=== PATIENT | male | born 1935 | race Caucasian/White ===

== ENCOUNTER → 2016-12-15 | Outpatient (CLI) | payer OTHER ==
[~2016-12-15] MED LIST: ARC10 PO; ASPCH81 PO; ATOR-24 PO; CLOP1TAB15 PO; FAMO20TA11 PO; GLC5 PO; INSU3INJ3 SQ; ISOS30TA51 PO; MELATAB2 PO; METO50TA16 PO; NITR0.6D TD; NTRGSL/4 UT; PARO1TAB29 PO; PREG1CAP28 PO; RNXER500 PO; SITA50TA3 PO
--- NOTE | 2016-12-15 10:38 | DIAGNOSTIC IMAGING REPORT ---
AORTIC ANEURYSM RETROPERI [facility] (ab[facility]) COMPARISON STUDY: Abdomen and pelvis CT 10/01/2007. FINDINGS: Scattered calcified atherosclerotic plaque is again noted. There is a 4.2 x 4.1 cm distal abdominal aortic aneurysm. This is increased in size compared to the prior study when it measured up to 3.5 cm. Common iliac arteries are normal in caliber. IMPRESSION: A 4.2 x 4.1 cm distal abdominal aortic aneurysm. Electronically signed by: Michael Chadwick M.D. 12/15/2016 10:37 AM Dictated Date/Time: 12/15/2016 10:35 AM
== END | disposition home or self-care (01) ==
LOC: C.ULTRBC 10:08
PROVIDERS: ATTEND Internal Medicine Geriatric Medicine
DX: Z00.00 Encounter for general adult medical examination without abnormal findings (principal); I71.4 Abdominal aortic aneurysm, without rupture

== ENCOUNTER 2018-06-22 04:11 | Inpatient (IN) ==
[2018-06-22 04:58] LABS: Basophils # (auto) 0.02 K/uL (0-0.2); Basophils % (auto) 0.2 %; Eosinophils # (auto) 0.13 K/uL (0-0.5); Eosinophils % (auto) 1.5 %; Hemoglobin 12.2 g/dL (14.0-18.0); Immature Granulocytes # (auto) 0.02 K/uL (0.00-0.02); Immature Granulocytes % (auto) 0.2 %; Lymphocytes # (auto) 1.88 K/uL (1.2-3.4); Lymphocytes % (auto) 21.1 %; Mean Corpuscular Hgb Conc 33.9 g/dL (32-36); Mean Corpuscular Volume 87.2 fL (80-100); Monocytes # (auto) 0.69 K/uL (0.11-0.59); Monocytes % (auto) 7.8 %; Neutrophils # (auto) 6.16 K/uL (1.4-6.5); Neutrophils % (auto) 69.2 %; Platelet Count 251 K/uL (130-400); RDW Coefficient of Variation 14.4 % (11.5-14.5); RDW Standard Deviation 45.5 fL (36.4-46.3); Red Blood Count 4.13 M/uL (4.7-6.1)
[2018-06-22 05:24] LABS: Albumin Globulin Ratio 0.9 (0.9-2); Albumin Level 3.4 gm/dl (3.4-5.0); BUN Creatinine Ratio 11.8 (10-20); Bilirubin,Total 0.6 mg/dl (0.2-1); Calcium 8.8 mg/dl (8.5-10.1); Creatinine Clr Calc Pharmacy 37.1 ml/min; Est GFR (African American) 41.4; Est GFR (Non-African American) 35.7; Globulin 3.7 gm/dl (2.5-4.0); Total Protein 7.1 gm/dl (6.4-8.2)
[2018-06-22 05:49] LABS: Potassium 4.5 mmol/L (3.5-5.1)
[2018-06-22] MEDS ORDERED: SODIUM CHLORIDE 0.9% 1000ML 1,000 ML IV ONE (06:00)
[2018-06-22 06:04] LABS: Magnesium 2.3 mg/dl (1.8-2.4)
--- NOTE | 2018-06-22 06:30 | XRay Report ---
XR chest 1V portable HISTORY: 82 years-old Male fall acute atypical chest pain status post fall COMPARISON: Chest radiograph 02/01/2018 TECHNIQUE: Portable AP view of the chest FINDINGS: Prior median sternotomy. Cardiac silhouette is enlarged, unchanged. Postoperative changes suggest monica or CABG. Bibasilar opacities suggest atelectasis/scarring. Degenerative changes of the shoulders and spine. No acute displaced rib fracture identified. IMPRESSION: Cardiomegaly without acute process. The above report was generated using voice recognition software. It may contain grammatical, syntax o r spelling errors. Electronically signed by: Nic Dao M.D. 06/22/2018 6:28 AM
--- NOTE | 2018-06-22 06:35 | CT Scan Report ---
CT OF THE CERVICAL SPINE CLINICAL HISTORY: Neck pain status post trauma COMPARISON STUDY: No previous studies for comparison. CT DOSE: 1013.48 mGy.cm TECHNIQUE: CT scan of the cervical spine was performed from the skull base to the thoracic inlet. Staci ges are reviewed in the axial, sagittal, and coronal planes. IV contrast was not administered for thi s examination. A dose lowering technique was utilized adhering to the principles of ALARA. FINDINGS: The visualized portions of the lung apices reveal no evidence of pneumothorax. The prevertebral soft tissues are normal. No fractures or subluxations are visualized. There are multilevel degenerative changes IMPRESSION: No evidence of acute fracture or traumatic subluxation. Electronically signed by: Hermelindo Maravilla M.D. 06/22/2018 6:34 AM
--- NOTE | 2018-06-22 06:41 | CT Scan Report ---
CT head/brain wo con CLINICAL HISTORY: 82 years-old Male with fall, ams. Acute head injury status post fall with acutely altered mental status TECHNIQUE: Multiple axial CT images of the head were obtained without contrast. A dose lowering tech nique was utilized adhering to the principles of ALARA. COMPARISON: CT cervical spine of same day, brain MRI 02/05/2015. FINDINGS: No acute intracranial hemorrhage, midline shift, intracranial mass, hydrocephalus, territorial ischem ia or abnormal extra-axial collection. Age-related involutional changes. Mild degree of ill-defined w darrian matter hypodensities suggestive of background chronic microvascular ischemic change. Cerebral va scular calcifications noted. Senescent calcifications of the basal ganglia. The calvarium is intact. Trace right mastoid effusion. Left mastoid air cells are clear. The paranasa l sinuses are also generally clear. Soft tissues and orbits are unremarkable. Prior bilateral catarac t repair. IMPRESSION: No acute intracranial abnormality or calvarial fracture. The above report was generated using voice recognition software. It may contain grammatical, syntax o r spelling errors. Electronically signed by: Nic Dao M.D. 06/22/2018 6:40 AM
[2018-06-22] MEDS: D5W AND 1/2NSS 1,000 ML IV SCH ×3 (07:18→22:53)
--- NOTE | 2018-06-22 08:05 | History & Physical Report ---
Date of Service June 22, 2018 Assessment & Plan (1) DM II (diabetes mellitus, type II), controlled: (2) Hypoglycemia: - Admit to PCU - Stop D5W + 1/2 NSS after going to the floor since pt is able to tolerate oral diet and glucose is improving. Pt with CHF so monitor volume status closely. - Continue BG checks Q4H and Q1H prn. IV and PO glucose agents ordered prn for decreased glucose. Will order ISS so this may be used if pt's glucose does trend upward. Hold Levemir 40 U QPM - will need education regarding medication and daily logging of the administration to prevent accidental overdose with antiglycemic agents. - DM/ HH diet - A1C with am labs (3) Hypothermia: - Improving at this time - Monitor for AMS, pt is AAO x 3 during my exam - Imaging reviewed per EMR. (4) Altered mental status: As above (5) Acute kidney injury: - Cr. elevated at 1.73, follow with am labs. - IVFs given in ER, likely to help renal function. Avoid other nephrotoxins and renally dose medications. (6) CKD (chronic kidney disease), stage III: - Slightly elevated compared to baseline. Follow am labs. - Hold nephrotoxins and renally dose appropriate medications. (7) Elevated lipase: - No abdominal pain, will trend am lipase. - Allow diet for now with significant hypoglycemia as above. - Consider further pancreatic imaging with abd CT if other changes in lipase levels or concern for other pancreatic involvement with causing hypoglycemia if medication cause is ruled out. (8) Systolic and diastolic CHF, chronic: - EF of 45-50% as per Echo in Jan 2018 - Appears to be euvolemic currently, monitor volume status with IVFs from the er. - Daily weights, strict I/Os, HH diet - Follows with cardiology, Dr. Christine as outpatient, has ECHO [id number] as outpatient for followup. (9) Elevated troponin I level: - Trop 1.000, likely residual from recent cardiac cath on 06/09. Check one more set at noon. - EKG reviewed and is negative. Per nursing in ER there was possible arrhythmia on tele while at imaging, will monitor on tele. - EKG prn chest pain (10) History of quadruple bypass: (11) CAD (coronary artery disease): - Underwent recent cardiac cath on 06/09/[address] Christine which showed severe [place] multivessel coronary artery disease. - [address] - Continue to maximize antianginal therapy, recently had nitro patch dose increased as pt was occasionally forgeting morning oral anti-anginal meds - No repeat echo indicated at this time, continue to monitor as outpatient. - Continue Ranexa, plavix, asa 81 mg, and atorvastatin, nitro tabs prn. - Pt without any cardiac/respiratory complaints currently. (12) Aortic stenosis: - Noted, stable. 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 The patient lives at home with his who is not present at bedside. The patient notes he remembers getting up and having breakfast this morning. He cannot recall any events after this. Per EMS report the patient had a BG in the mid 30s on several rechecks, despite administration of juice, cookies, and oral glucose. He was then given 1 full amp of D50 which improved glucose into the 200s for a short period of time. Upon arrival to the hospital his glucose again dropped into the mid 30s. D5W + NSS 1/2 @ 125 mL/hr was initiated in the ER. BG= 122 upon last recheck in the ER. A Bairhugger was placed on the patient and his temperature has also improved up to 35.2. He denies any acute flu-like sx, no cardiac or respiratory complaints. Pt notes he sustained a mechanical fall yesterday and that his neck is sore since then. He denies LOC, trauma or skin tear or laceration. He does not use any assistive devices for ambulation at baseline. Pt notes that he remembers taking medications last evening which would have included Levimir 40 U QPM, along with a sliding scale, although is unsure if he would have mixed up these medications and taken a wrong dose. He does manage his meds at baseline himself. Allergies Allergy/AdvReac Type Severity Reaction Status Date / Time iodine Allergy Severe Unknown Verified 06/27/18 06:42 Penicillins Allergy Severe AMOXIL = Verified 06/27/18 06:42 ANAPHYLACTIC RXN clavulanic acid Allergy Unknown Unknown Verified 06/27/18 06:42 morphine AdvReac Mild VOMITING Verified 06/27/18 06:42 Home Medications Home Medications Medication Instructions Recorded Confirmed Type atorvastatin 40 mg PO HS 02/01/18 06/27/18 History donepezil [Aricept] 10 mg PO DAILY 02/01/18 06/27/18 History metoprolol tartrate 50 mg PO BID 02/01/18 06/27/18 History nitroglycerin [Nitrostat] 0.4 mg SUBLINGUAL DIRECTED PRN 02/01/18 06/27/18 History Levemir FlexTouch U-100 Insuln 40 units SUBCUT PM 06/09/18 06/27/18 History aspirin 81 mg PO DAILY 06/09/18 06/27/18 History cholecalciferol (vitamin D3) 1,000 unit PO DAILY 06/09/18 06/27/18 History [Vitamin D3] clopidogrel 75 mg PO DAILY 06/09/18 06/27/18 History cyanocobalamin (vitamin B-12) 1,000 mcg PO DAILY 06/09/18 06/27/18 History [Vitamin B-12] famotidine 20 mg PO BID 06/09/18 06/27/18 History pantoprazole 40 mg PO DAILY 06/09/18 06/27/18 History ranolazine [Ranexa] 500 mg PO Q12 06/22/18 06/27/18 History nitroglycerin [Nitro-Dur] 1 patch TRANSDERMAL ONAMOFFPM 06/27/18 06/28/18 History Past Med/Surg History Medical History CAD (coronary artery disease) Vitamin D deficiency PVD (peripheral vascular disease) GERD (gastroesophageal reflux disease) HLD (hyperlipidemia) DM II (diabetes mellitus, type II), controlled Anemia Aortic stenosis AAA (abdominal aortic aneurysm) KAY (obstructive sleep apnea) Dementia CKD (chronic kidney disease), stage III HTN (hypertension), benign Chest pain (Acute) Ankle pain, right (Acute) Surgical History History of quadruple bypass H/O heart artery stent Social History Communication Ability: Effective Beliefs That Will Affect Care: None marital status: Current Living Situation: Spouse Other Information That Helps Us Care for You: No Feels Safe at Home: Yes Safety Concerns: Feels Safe At This Time Smoking Status: Former smoker Hx Alcohol Use: No Hx Substance Use: No Review of Systems Constitutional: No fever, sweats or chills Eyes: No diplopia, no worsening or blurred vision ENT: normal hearing, no trouble swallowing Respiratory: No cough, sputum, dyspnea at rest or on exertion Cardiovascular: No chest pain, tightness or palpitations Abdomen: No pain, nausea, vomiting, diarrhea or constipation Musculoskeletal: + neck soreness, otherwise No joint pain, calf pain, swelling Neurologic: + admits to some forgetfulness, No weakness, numbness/tingling, or balance problems Psychiatric: No anxiety or depression Skin: No rash or itch Physical Exam Vital Signs (Past 24 Hours): Last Vital Signs Temp 34.9 C L 06/22/18 07:25 Pulse 58 L 06/22/18 07:57 Resp 18 06/22/18 07:57 BP 130/63 06/22/18 07:57 Pulse Ox 97 06/22/18 07:57 Physical Exam: General: awake, alert, no apparent distress, + bairhugger on Head: Normocephalic, atraumatic ENT: PERRL, EOMI, no pharyngeal exudate, mucous membranes moist Chest: Clear to auscultation, on room air, no adventitious breath sounds Cardiac: NSR with HR=58, + JOHANNA, no JVD, normal peripheral pulses, good capillary refill Abdominal: NABS x 4 quadrants, soft, nontender to palpation, no rebound, guarding or tenderness. Urinary catheter in place draining clear yellow urine. Extremities: Normal inspection, no peripheral edema or erythema, calfs nontender to palpation Psych: Normal mood and affect Neuro: AAO x 3, no motor deficits, speech is clear, no peripheral sensory deficits Results & Data Diagnostic Findings CT head/brain wo con CLINICAL HISTORY: 82 years-old Male with fall, ams. Acute head injury status post fall with acutely altered mental status TECHNIQUE: Multiple axial CT images of the head were obtained without contrast. A dose lowering technique was utilized adhering to the principles of ALARA. COMPARISON: CT cervical spine of same day, brain MRI 02/05/2015. FINDINGS: No acute intracranial hemorrhage, midline shift, intracranial mass, hydrocephalus, territorial ischemia or abnormal extra-axial collection. Age- related involutional changes. Mild degree of ill-defined white matter hypoden sities suggestive of background chronic microvascular ischemic change. Cerebral vascular calcifications noted. Senescent calcifications of the basal ganglia. The calvarium is intact. Trace right mastoid effusion. Left mastoid air cells are clear. The paranasal sinuses are also generally clear. Soft tissues and orbits are unremarkable. Prior bilateral cataract repair. IMPRESSION: No acute intracranial abnormality or calvarial fracture. XR chest 1V portable HISTORY: 82 years-old Male fall acute atypical chest pain status post fall COMPARISON: Chest radiograph 02/01/2018 TECHNIQUE: Portable AP view of the chest FINDINGS: Prior median sternotomy. Cardiac silhouette is enlarged, unchanged. Postoperative changes suggest prior CABG. Bibasilar opacities suggest atelectasis/scarring. Degenerative changes of the shoulders and spine. No acute displaced rib fracture identified. IMPRESSION: Cardiomegaly without acute process. CT OF THE CERVICAL SPINE CLINICAL HISTORY: Neck pain status post trauma COMPARISON STUDY: No previous studies for comparison. CT DOSE: 1013.48 mGy.cm TECHNIQUE: CT scan of the cervical spine was performed from the skull base to the thoracic inlet. Images are reviewed in the axial, sagittal, and coronal planes. IV contrast was not administered for this examination. A dose lowering technique was utilized adhering to the principles of ALARA. FINDINGS: The visualized portions of the lung apices reveal no evidence of pneumothorax. The prevertebral soft tissues are normal. No fractures or subluxations are visualized. There are multilevel degenerative changes IMPRESSION: No evidence of acute fracture or traumatic subluxation. ECG Additional Comments: 22-JUN-2018 04:46:07 [facility] Poor data quality, interpretation may be adversely affected Sinus bradycardia Incomplete left bundle block ST & T wave abnormality, consider anterior ischemia Abnormal ECG When compared with ECG of 02-FEB-2018 07:47, Incomplete left bundle block is now Present T wave inversion less evident in Anterolateral leads 25mm/s 10mm/mV 150Hz 8.0 SP2 12SL 241 MARILYN: 16 Referred by: REFERRED SELF Unconfirmed Vent. rate 51 BPM WV interval 138 ms QRS duration 116 ms QT/QTc 530/488 ms P-R-T axes -7 9 -11 Supervising Physician Co-Signing Physician Notes I interrogated and examined the patient shortly after the APC in a seperate encounter. My histoRy and physical examination did not differ from the APCs. I reviewed above note and agree with it except for the following: Hypoglycemia: This is likely from the patient's insulin use. This may have been exacerbated by his CKD, especially since he is in acute renal failure. Will monitor his blood sugars. Patient may also have dementia which may be playing a role in overusing the insulin provoking a hypoglycemic episode. Will monitor. (1) CAD (coronary artery disease) Associated angina: with unstable angina Coronary Disease-Associated Artery/Lesion type: [place] artery [place] vs. transplanted heart: sh[place] heart Qualified Code(s): I25.110 - Atherosclerotic heart disease of [place] coronary artery with unstable angina pectoris (2) AAA (abdominal aortic aneurysm) Presence of rupture: without rupture Qualified Code(s): I71.4 - Abdominal aor tic aneurysm, without rupture (3) Aortic stenosis Cardiac valve disease etiology: etiology unspecified Qualified Code(s): I35.0 - Nonrheumatic aortic (valve) stenosis (4) HLD (hyperlipidemia) Hyperlipidemia type: pure hypercholesterolemia Qualified Code(s): E78.00 - Pure hypercholesterolemia, unspecified; E78.0 - Pure hypercholesterolemia (5) Hypothermia Encounter type: initial encounter Qualified Code(s): T68.XXXA - Hypothermia, initial encounter (6) Altered mental status Altered mental status type: unspecified Qualified Code(s): R41.82 - Altered mental status, unspecified
[2018-06-22] MEDS ORDERED: ONDANSETRON INJ 2 MG/ML 2 ML VIAL IV PRN (08:15)
[2018-06-22] MEDS ORDERED: GLUCAGON FOR INJ 1 MG VIAL SQ PRN (08:15)
[2018-06-22] MEDS ORDERED: DEXTROSE 50% 50 ML SYRINGE IV PRN (08:15)
[2018-06-22] MEDS ORDERED: GLUCOSE 10 TABS/TUBE PO PRN (08:15)
[2018-06-22] MEDS ORDERED: CARBOHYDRATES FOR HYPOGLYCEMIA PO PRN (08:15)
[2018-06-22] MEDS ORDERED: GLUCOSE 40% GEL 15 GM TUBE PO PRN (08:15)
[2018-06-22] MEDS ORDERED: ACETAMINOPHEN 325 MG TAB PO PRN (08:15)
[2018-06-22] MEDS ORDERED: NITROGLYCERIN SL 0.4 MG/TAB TAB SL PRN (08:20)
[2018-06-22 08:28] LABS: Appearance Urine Clear (Clear); Bilirubin Urine Negative (Negative); Blood Urine Negative (Negative); Color Urine Yellow; Glucose Urine UA Negative (Negative); Ketones Urine Negative (Negative); Leukocyte Esterase Urine Negative (Negative); Nitrite Urine Negative (Negative); Protein Urine Negative (Negative); Specific Gravity Urine 1.012 (1.000-1.030); Urobilinogen Urine Negative (Negative)
[2018-06-22] MEDS: ASPIRIN 81 MG ECTAB PO SCH (11:56)
[2018-06-22] MEDS: CYANOCOBALAMIN 500 MCG TABLET (VITAMIN B-12) PO SCH (11:56)
[2018-06-22] MEDS: DONEPEZIL HCL 10 MG TAB PO SCH (11:56)
[2018-06-22] MEDS: RANOLAZINE 500 MG ER TAB PO SCH ×2 (11:56→20:49)
[2018-06-22] MEDS: CLOPIDOGREL BISULFATE 75 MG TAB PO SCH (11:56)
[2018-06-22] MEDS: PANTOprazole 40 MG TAB PO SCH (11:56)
[2018-06-22] MEDS: CHOLECALCIFEROL 1,000 UNITS TAB PO SCH (11:56)
[2018-06-22] MEDS: FAMOTIDINE 20 MG TAB PO SCH ×2 (11:56→20:26)
[2018-06-22] MEDS: METOPROLOL TARTRATE 50 MG TAB PO SCH ×2 (11:57→21:59)
[2018-06-22] MEDS: INSULIN ASPART 100 UNITS/ML 3 ML PEN SC SCH ×3 (12:03→21:03)
[2018-06-22 12:05] LABS: INR 1.1 (0.9-1.1); Prothrombin Time 10.9 Seconds (9.0-12.0)
[2018-06-22 12:42] LABS: Troponin I 13.6 ng/ml (0-0.045)
[2018-06-22] MEDS ORDERED: Heparin IV Standard *NO* Bolus IV SCH (13:10)
[2018-06-22] MEDS ORDERED: HEPARIN SOD 5,000 UNIT/0.5 ML VIAL SQ SCH (14:00)
[2018-06-22] MEDS ORDERED: PERFLUTREN LIPID MICROSPHERE (DEFINITY) IV ONE (14:07)
[2018-06-22] MEDS: Heparin Adult STANDARD Wt-Based Dextrose 5% 25,000 units/500 mL IV SCH (15:01)
[2018-06-22] MEDS: NITROGLYCERIN TD SCH (15:32)
--- NOTE | 2018-06-22 17:13 | Cardiology Consultation ---
Date of Consultation June 22, 2018 Assessment & Plan (1) Non-ST elevation (NSTEMI) myocardial infarction: He did not present with acute coronary syndrome. Cannot definitively rule out angina while he was with altered mental status, but it appears more likely at this time that perhaps his hypoglycemia and presenting symptoms may have led to demand ischemia in the setting of severe CAD and moderate aortic stenosis. With lack of symptoms, would recommend continuation of medical therapy for now. Dr. Christine, his primary insurance sales specialist, will also weigh in tomorrow. Continue aspirin, Plavix, high-intensity statin therapy, and beta-ross. No indication for urgent cardiac catheterization at this time. (2) Aortic stenosis: Non severe. This is being managed by Dr. Christine and can be followed as an outpatient. (3) Ischemic cardiomyopathy: Mildly reduced LV systolic function, which is not new. Likely secondary to his multivessel CAD. Continue medical therapy. He appears euvolemic. (4) CAD (coronary artery disease): He has multivessel CAD status post CABG x5 with CAD involving bypass grafts. No angina. Continue medical therapy as above. He is well beta blocked. He uses a nitroglycerin patch at home as well for symptoms. Complex PCI considered by Dr. Christine if he should have refractory symptoms in the future. He has not exhibited anginal symptoms at this point on current regimen. Continue to follow. Continue high-intensity statin therapy. (5) HTN (hypertension), benign: Blood pressure mostly normotensive during this hospitalization. No changes recommended at this time. Disposition: Cardiology will continue to follow. Dr. Pearson will resume his cardiology care tomorrow. Please call with any other questions or concerns in the meantime. Patient care communicated with Dr. Martinez, primary hospitalist. Highly complex medical issues. Thank you for allowing me to participate in the care of your patient. Please call for any other questions or concerns. Sincerely, Alex Monae M.D. History of Present Illness Reason for Consultation: NSTEMI Requesting Physician: Clint Martinez Attending Physician: Clint Martinez History of Present Illness Mr. 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 His primary insurance sales specialist is Dr. Christine. [facility] due to confusion, hypothermia, and hypoglycemia. He apparently had altered mental status at approximately 2:00 a.m. when his called 911. She had noted that he was thrashing around in his bed. He does not recall any of the events however. His initial glucose was 34 in the emergency department and his initial temperature was 34.9 C. He now feels back to baseline. He does not recall any recent chest discomfort, shortness of breath, syncope, near-syncope, palpitations, edema, melena, hematochezia, or hematuria. He does have some blood on his toilet paper, but no extensive bleeding. He recalls falling recently but was conscious throughout the event. Troponin levels were checked throughout his hospital stay. Initial troponin was 1 and increased to 13.6 late this morning. His troponins in January of 2018 peaked at 0.756. He underwent cardiac catheterization on 06/09/2018. Coronary angiography demonstrated severe [place] multivessel CAD including occluded ostial LM CA, occluded ostial PDA, occluded SVG to diagonal, occluded SVG to PDA/PL. Aortic stenosis was noted to be moderate. Medical therapy was recommended with consideration for complex PCI to Y graft from PLB to PDA for refractory symptoms. Review of systems: As above. He also notes constipation. Review of systems otherwise negative/unremarkable. Family history: No known premature CAD. Social history: Quit smoking approximately 40 years ago. No alcohol or drug abuse. He has 2 sons and 1 daughter. His eldest son, Bi, is present at the bedside. He lives at home with his . He is retired from the [employer]. Allergies Allergy/AdvReac Type Severity Reaction Status Date / Time iodine Allergy Severe Unknown Verified 06/22/18 06:53 Penicillins Allergy Severe AMOXIL = Verified 06/22/18 06:53 ANAPHYLACTIC RXN clavulanic acid Allergy Unknown Unknown Verified 06/22/18 06:53 morphine AdvReac Mild VOMITING Verified 06/22/18 06:53 Home Medications Home Medications Medication Instructions Recorded Confirmed Type atorvastatin 40 mg PO HS 02/01/18 06/22/18 History donepezil [Aricept] 10 mg PO DAILY 02/01/18 06/22/18 History metoprolol tartrate 50 mg PO BID 02/01/18 06/22/18 History nitroglycerin [Nitrostat] 0.4 mg SUBLINGUAL DIRECTED PRN 02/01/18 06/22/18 History Levemir FlexTouch U-100 Insuln 40 units SUBCUT PM 06/09/18 06/22/18 History aspirin 81 mg PO DAILY 06/09/18 06/22/18 History cholecalciferol (vitamin D3) 1,000 unit PO DAILY 06/09/18 06/22/18 History [Vitamin D3] clopidogrel 75 mg PO DAILY 06/09/18 06/22/18 History cyanocobalamin (vitamin B-12) 1,000 mcg PO DAILY 06/09/18 06/22/18 History [Vitamin B-12] famotidine 20 mg PO BID 06/09/18 06/22/18 History nitroglycerin [Nitro-Dur] 1 patch TD DAILY #30 ea 06/09/18 06/22/18 Rx pantoprazole 40 mg PO DAILY 06/09/18 06/22/18 History ranolazine [Ranexa] 1,000 mg PO Q12 06/22/18 06/22/18 History Patient History Medical History CAD (coronary artery disease) Vitamin D deficiency PVD (peripheral vascular disease) GERD (gastroesophageal reflux disease) HLD (hyperlipidemia) DM II (diabetes mellitus, type II), controlled Anemia Aortic stenosis AAA (abdominal aortic aneurysm) KAY (obstructive sleep apnea) Dementia CKD (chronic kidney disease), stage III HTN (hypertension), benign Chest pain (Acute) Ankle pain, right (Acute) Surgical History History of quadruple bypass H/O heart artery stent Social History Preferred Language: Norwegian Communication Ability: Effective 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 Alert. HEENT: Anicteric sclera. Neck: No appreciable JVD. Normal carotid upstrokes bilaterally. Cardiac: PMI was nondisplaced. No ventricular heave. Regular. Normal S1-S2. 3/6 mid-peaking systolic ejection murmur best heard at the right upper sternal border. No rubs, or gallops. Pulmonary: Clear to auscultation bilaterally without wheezes, rales, or rhonchi. Abdomen: Soft, nontender, nondistended, with normoactive bowel sounds. No bruits noted. Extremities: 2+ radial pulses bilaterally. 1+ dorsalis pedis pulses bilaterally. No edema or cyanosis. No palpable cords. Psychiatric: Affect appears appropriate. Results & Data Laboratory Results Laboratory Results - last 24 hr 06/22/18 06/22/18 06/22/18 04:18 04:21 04:32 WBC 8.90 RBC 4.13 L Hgb 12.2 L Hct 36.0 L MCV 87.2 MCH 29.5 MCHC 33.9 RDW Std Deviation 45.5 RDW Coeff of Sandra 14.4 Plt Count 251 MPV 10.0 Immature Gran % (Auto) 0.2 Neut % (Auto) 69.2 Lymph % (Auto) 21.1 [place] % (Auto) 7.8 Eos % (Auto) 1.5 Baso % (Auto) 0.2 Immature Gran # (Auto) 0.02 Neut # (Auto) 6.16 Lymph # (Auto) 1.88 [place] # (Auto) 0.69 H Eos # (Auto) 0.13 Baso # (Auto) 0.02 PT INR APTT PTT Ratio Sodium Potassium Chloride Carbon Dioxide Anion Gap BUN Creatinine Est Cr Clr Drug Dosing Est GFR ( Amer) Est GFR (Non-Af Amer) BUN/Creatinine Ratio Glucose POC Glucose 78 84 Lactate Calcium Magnesium Total Bilirubin AST ALT Alkaline Phosphatase Total Creatine Kinase Troponin I Total Protein Albumin Globulin Albumin/Globulin Ratio Lipase Procalcitonin Urine Color Urine Appearance Urine pH Ur Specific [place] Urine Protein Urine Glucose (UA) Urine Ketones Urine Blood Urine Nitrite Urine Bilirubin Urine Urobilinogen Ur Leukocyte Esterase 06/22/18 06/22/18 06/22/18 04:32 05:09 05:31 WBC RBC Hgb Hct MCV MCH MCHC RDW Std Deviation RDW Coeff of Sandra Plt Count MPV Immature Gran % (Auto) Neut % (Auto) Lymph % (Auto) [place] % (Auto) Eos % (Auto) Baso % (Auto) Immature Gran # (Auto) Neut # (Auto) Lymph # (Auto) [place] # (Auto) Eos # (Auto) Baso # (Auto) PT INR APTT PTT Ratio Sodium 136 Potassium 4.5 Chloride 103 Carbon Dioxide 28 Anion Gap 5.0 BUN 20 H Creatinine 1.73 H Est Cr Clr Drug Dosing 37.1 Est GFR ( Amer) 41.4 Est GFR (Non-Af Amer) 35.7 BUN/Creatinine Ratio 11.8 Glucose 136 H POC Glucose 88 Lactate Calcium 8.8 Magnesium 2.3 Total Bilirubin 0.6 AST 24 ALT 20 Alkaline Phosphatase 71 Total Creatine Kinase Troponin I 1.000 H* Total Protein 7.1 Albumin 3.4 Globulin 3.7 Albumin/Globulin Ratio 0.9 Lipase 712 H Procalcitonin Urine Color Urine Appearance Urine pH Ur Specific [place] Urine Protein Urine Glucose (UA) Urine Ketones Urine Blood Urine Nitrite Urine Bilirubin Urine Urobilinogen Ur Leukocyte Esterase 06/22/18 06/22/18 06/22/18 07:12 07:16 07:44 WBC RBC Hgb Hct MCV MCH MCHC RDW Std Deviation RDW Coeff of Sandra Plt Count MPV Immature Gran % (Auto) Neut % (Auto) Lymph % (Auto) [place] % (Auto) Eos % (Auto) Baso % (Auto) Immature Gran # (Auto) Neut # (Auto) Lymph # (Auto) [place] # (Auto) Eos # (Auto) Baso # (Auto) PT INR APTT PTT Ratio Sodium Potassium Chloride Carbon Dioxide Anion Gap BUN Creatinine Est Cr Clr Drug Dosing Est GFR ( Amer) Est GFR (Non-Af Amer) BUN/Creatinine Ratio Glucose POC Glucose 34 L* 35 L* 67 L* Lactate Calcium Magnesium Total Bilirubin AST ALT Alkaline Phosphatase Total Creatine Kinase Troponin I Total Protein Albumin Globulin Albumin/Globulin Ratio Lipase Procalcitonin Urine Color Urine Appearance Urine pH Ur Specific [place] Urine Protein Urine Glucose (UA) Urine Ketones Urine Blood Urine Nitrite Urine Bilirubin Urine Urobilinogen Ur Leukocyte Esterase 06/22/18 06/22/18 06/22/18 07:54 08:00 08:21 WBC RBC Hgb Hct MCV MCH MCHC RDW Std Deviation RDW Coeff of Sandra Plt Count MPV Immature Gran % (Auto) Neut % (Auto) Lymph % (Auto) [place] % (Auto) Eos % (Auto) Baso % (Auto) Immature Gran # (Auto) Neut # (Auto) Lymph # (Auto) [place] # (Auto) Eos # (Auto) Baso # (Auto) PT INR APTT PTT Ratio Sodium Potassium Chloride Carbon Dioxide Anion Gap BUN Creatinine Est Cr Clr Drug Dosing Est GFR ( Amer) Est GFR (Non-Af Amer) BUN/Creatinine Ratio Glucose POC Glucose 122 H Lactate 1.8 Calcium Magnesium Total Bilirubin AST ALT Alkaline Phosphatase Total Creatine Kinase Troponin I Total Protein Albumin Globulin Albumin/Globulin Ratio Lipase Procalcitonin Urine Color Yellow Urine Appearance Clear Urine pH 5.0 Ur Specific [place] 1.012 Urine Protein Negative Urine Glucose (UA) Negative Urine Ketones Negative Urine Blood Negative Urine Nitrite Negative Urine Bilirubin Negative Urine Urobilinogen Negative Ur Leukocyte Esterase Negative 06/22/18 06/22/18 06/22/18 08:56 09:44 09:59 WBC RBC Hgb Hct MCV MCH MCHC RDW Std Deviation RDW Coeff of Sandra Plt Count MPV Immature Gran % (Auto) Neut % (Auto) Lymph % (Auto) [place] % (Auto) Eos % (Auto) Baso % (Auto) Immature Gran # (Auto) Neut # (Auto) Lymph # (Auto) [place] # (Auto) Eos # (Auto) Baso # (Auto) PT INR APTT PTT Ratio Sodium Potassium Chloride Carbon Dioxide Anion Gap BUN Creatinine Est Cr Clr Drug Dosing Est GFR ( Amer) Est GFR (Non-Af Amer) BUN/Creatinine Ratio Glucose POC Glucose 103 H 94 Lactate Calcium Magnesium Total Bilirubin AST ALT Alkaline Phosphatase Total Creatine Kinase Troponin I Total Protein Albumin Globulin Albumin/Globulin Ratio Lipase Procalcitonin < 0.05 Urine Color Urine Appearance Urine pH Ur Specific [place] Urine Protein Urine Glucose (UA) Urine Ketones Urine Blood Urine Nitrite Urine Bilirubin Urine Urobilinogen Ur Leukocyte Esterase 06/22/18 06/22/18 06/22/18 11:07 11:46 11:46 WBC RBC Hgb Hct MCV MCH MCHC RDW Std Deviation RDW Coeff of Sandra Plt Count MPV Immature Gran % (Auto) Neut % (Auto) Lymph % (Auto) [place] % (Auto) Eos % (Auto) Baso % (Auto) Immature Gran # (Auto) Neut # (Auto) Lymph # (Auto) [place] # (Auto) Eos # (Auto) Baso # (Auto) PT 10.9 INR 1.1 APTT PTT Ratio Sodium Potassium Chloride Carbon Dioxide Anion Gap BUN Creatinine Est Cr Clr Drug Dosing Est GFR ( Amer) Est GFR (Non-Af Amer) BUN/Creatinine Ratio Glucose POC Glucose 108 H Lactate Calcium Magnesium Total Bilirubin AST ALT Alkaline Phosphatase Total Creatine Kinase 530 H Troponin I 13.600 H* Total Protein Albumin Globulin Albumin/Globulin Ratio Lipase Procalcitonin Urine Color Urine Appearance Urine pH Ur Specific [place] Urine Protein Urine Glucose (UA) Urine Ketones Urine Blood Urine Nitrite Urine Bilirubin Urine Urobilinogen Ur Leukocyte Esterase 06/22/18 06/22/18 11:46 16:23 WBC RBC Hgb Hct MCV MCH MCHC RDW Std Deviation RDW Coeff of Sandra Plt Count MPV Immature Gran % (Auto) Neut % (Auto) Lymph % (Auto) [place] % (Auto) Eos % (Auto) Baso % (Auto) Immature Gran # (Auto) Neut # (Auto) Lymph # (Auto) [place] # (Auto) Eos # (Auto) Baso # (Auto) PT INR APTT 27.0 PTT Ratio 1.0 Sodium Potassium Chloride Carbon Dioxide Anion Gap BUN Creatinine Est Cr Clr Drug Dosing Est GFR ( Amer) Est GFR (Non-Af Amer) BUN/Creatinine Ratio Glucose POC Glucose 94 Lactate Calcium Magnesium Total Bilirubin AST ALT Alkaline Phosphatase Total Creatine Kinase Troponin I Total Protein Albumin Globulin Albumin/Globulin Ratio Lipase Procalcitonin Urine Color Urine Appearance Urine pH Ur Specific [place] Urine Protein Urine Glucose (UA) Urine Ketones Urine Blood Urine Nitrite Urine Bilirubin Urine Urobilinogen Ur Leukocyte Esterase Diagnostic Findings Cardiac catheterization 06/09/2018: LM -100% ostial occlusion LAD -occluded Circumflex -occluded RCA -dominant, stents from ostium into right PLB widely patent. PDA is occluded at the ostium. Y graft retro-fills from PIV back to mid PDAmid segment of Y graft with 90% stenosis. RCA provides some left to right collaterals to circumflex system WILNER to LADwidely patent, distal vessel small (right subclavian tortuosity, calcification, unable to pass catheter from aorta to WILNER. Right radial artery access obtained to evaluate WILNER) KENNEDY to OMwidely patent, neutrophils into mid circumflex SVG to diagonaloccluded SVG to PDA/PLBoccluded ostially RA 7 RV 34/9 PA 34/11 (19) PAWP 10 LV 15 PaSat 93% AoSat 55% Riki CO/CI 4.2/2 Thermo CO/CI 3.4/1.6 Aortic valve mean gradient --14.6 ANKUSH by Thermo1.36 (index 0.65) Echo 06/22/2018: Normal LV size with mildly reduced systolic function. Estimated EF 45%. Hypokinesis of the anteroseptum, septum, and inferolateral wall segments. No LVH. Mild MR. Similar LV systolic function compared to 02/02/2018 echo. ECGs personally reviewed: ECG 06/22/2018 at 1:35 p.m.: Sinus bradycardia [address]/T-wave abnormality. ECG06/22/2018 at 4:46 a.m.: Sinus bradycardia [address] abnormality. Telemetry personally reviewed: Sinus rhythm. No arrhythmia. Medications Administered Current Inpatient Medications Acetaminophen (Tylenol) 650 mg PO Q4H PRN PRN Reason: Moderate Pain Stop: 07/22/18 08:14 Aspirin (Ecotrin Ectab) 81 mg PO DAILY [facility] Stop: 07/22/18 08:59 Last Admin: 06/22/18 11:56 Dose: 81 mg Documented by: Atorvastatin Calcium (Lipitor) 40 mg PO HS [facility] Stop: 07/22/18 20:59 Clopidogrel Bisulfate (Plavix) 75 mg PO DAILY [facility] Stop: 07/22/18 08:59 Last Admin: 06/22/18 11:56 Dose: 75 mg Documented by: Cyanocobalamin (Vitamin B-12) 1,000 mcg PO DAILY [facility] Stop: 07/22/18 08:59 Last Admin: 06/22/18 11:56 Dose: 1,000 mcg Documented by: Dextrose (Dextrose 50%) 25 - 50 ml IV UD PRN; Protocol PRN Reason: Hypoglycemia Protocol Stop: 07/22/18 08:14 Donepezil HCl (Aricept) 10 mg PO DAILY [facility] Stop: 07/22/18 08:59 Last Admin: 06/22/18 11:56 Dose: 10 mg Documented by: Famotidine (Pepcid) 20 mg PO BID [facility] Stop: 07/22/18 08:59 Last Admin: 06/22/18 11:56 Dose: 20 mg Documented by: Glucagon (Glucagen) 1 mg SQ UD PRN; Protocol PRN Reason: Hypoglycemia Protocol Stop: 07/22/18 08:14 Glucose (Glucose 40%) 15 - 30 gm PO UD PRN; Protocol PRN Reason: Hypoglycemia Protocol Stop: 07/22/18 08:14 Glucose (Dex4 Glucose) 4 - 8 tabs PO UD PRN; Protocol PRN Reason: Hypoglycemia Protocol Stop: 07/22/18 08:14 Dextrose/Sodium Chloride (D5w And 1/2nss) 1,000 mls @ 125 mls/hr IV .Q8H [facility] Stop: 07/22/18 07:14 Last Admin: 06/22/18 15:01 Dose: 125 mls/hr Documented by: Heparin Sodium/Dextrose (Heparin Sodium/Dextrose) 25,000 units in 500 mls @ 29 mls/hr IV .[id number] [facility]; Protocol Stop: 07/22/18 14:44 Last Admin: 06/22/18 15:01 Dose: 1,450 units/hr, 29 mls/hr Documented by: Insulin Aspart (Novolog Flexpen) 0 units SC ACHS [facility] Stop: 07/22/18 11:29 Last Admin: 06/22/18 12:03 Dose: Not Given Documented by: Metoprolol Tartrate (Lopressor) 50 mg PO BID [facility] Stop: 07/22/18 08:59 Last Admin: 06/22/18 11:57 Dose: 50 mg Documented by: Miscellaneous (Carbohydrates For Hypoglycemia) 15 - 30 gm PO UD PRN PRN Reason: Hypoglycemia Treatment Stop: 07/22/18 08:14 Miscellaneous (Remove Nitro-Dur Patch) 1 ea N/A DAILY@2100 [facility] Stop: 07/22/18 20:59 Nitroglycerin (Nitrostat) 0.4 mg SL UD PRN PRN Reason: Chest Pain Stop: 07/22/18 08:19 Nitroglycerin (Nitro-Dur 0.8mg/Hr) 1 patch TD DAILY [facility] Stop: 07/22/18 08:59 Last Admin: 06/22/18 15:32 Dose: Not Given Documented by: Ondansetron HCl (Zofran) 4 mg IV Q4H PRN PRN Reason: Nausea And Vomiting Stop: 07/22/18 08:14 Pantoprazole Sodium (Protonix) 40 mg PO DAILY [facility] Stop: 07/22/18 08:59 Last Admin: 06/22/18 11:56 Dose: 40 mg Documented by: Ranolazine (Ranexa) 1,000 mg PO Q12 [facility] Stop: 07/22/18 08:59 Last Admin: 06/22/18 11:56 Dose: 1,000 mg Documented by: Vitamin D (Vitamin D3) 1,000 units PO DAILY [facility] Stop: 07/22/18 08:59 Last Admin: 06/22/18 11:56 Dose: 1,000 units Documented by: (1) Aortic stenosis Cardiac valve disease etiology: etiology unspecified Qualified Code(s): I35.0 - Nonrheumatic aortic (valve) stenosis (2) CAD (coronary artery disease) Coronary Disease-Associated Artery/Lesion type: [place] artery [place] vs. transplanted heart: [place] heart Associated angina: with unstable angina Qualified Code(s): I25.110 - Atherosclerotic heart disease of [place] coronary artery with unstable angina pectoris
[2018-06-22] MEDS: ATORVASTATIN 40 MG TAB PO SCH (20:26)
[2018-06-22 21:39] LABS: Partial Thromboplastin Ratio 3.7
[2018-06-22 21:42] LABS: Partial Thromboplastin Time 99.9 Seconds (21.0-31.0)
--- NOTE | 2018-06-23 03:42 | Emergency Department Note ---
Entered by Shiva Harvey acting as a scribe for Bri Dais DO History of Present Illness General Chief complaint: Hypoglycemia Time Seen by Provider: 06/22/18 04:13 Source: patient Mode of arrival: EMS History of Present Illness Provider complaint: Hypoglycemia Onset (ago): day(s) (prior to arrival) Location: head Pain Consistency: + other (episode) Quality: + other (hypoglycemia) Associated symptoms: + denies other symptoms (difficulty breathing) and + confusion Treatments prior to arrival: other (33 grams of oral glucose, IV of dextrose) The patient is an 82 year old male who presents to the Emergency Room via EMS secondary to an episode of hypoglycemia that occurred prior to arrival. Per EMS, the patient's glucose was at 40 and was given 33 grams of glucose, a cookie, and orange juice. EMS notes that after the oral glucose, the patient's blood sugar dropped to 35. Per EMS, the patient was then given an IV of dextrose which increased the patient's sugar to 247. Upon arrival to the ER, the patient's Accu-Chek was 78. The patient states that his sugar has never gone very low and has never gone very high. The patient notes that he is confused and is unsure of wether or not he takes pills or insulin for his diabetes. He also reports that he fell yesterday and notes that his neck is hurting. He states that turning his head exacerbates his pain. The patient denies having any difficulty breathing. Patient does not recall events of earlier tonight or why his called EMS. Home Medications Home Medications Medication Instructions Recorded Confirmed Type atorvastatin 40 mg PO HS 02/01/18 06/22/18 History donepezil [Aricept] 10 mg PO DAILY 02/01/18 06/22/18 History metoprolol tartrate 50 mg PO BID 02/01/18 06/22/18 History nitroglycerin [Nitrostat] 0.4 mg SUBLINGUAL DIRECTED PRN 02/01/18 06/22/18 History Levemir FlexTouch U-100 Insuln 40 units SUBCUT PM 06/09/18 06/22/18 History aspirin 81 mg PO DAILY 06/09/18 06/22/18 History cholecalciferol (vitamin D3) 1,000 unit PO DAILY 06/09/18 06/22/18 History [Vitamin D3] clopidogrel 75 mg PO DAILY 06/09/18 06/22/18 History cyanocobalamin (vitamin B-12) 1,000 mcg PO DAILY 06/09/18 06/22/18 History [Vitamin B-12] famotidine 20 mg PO BID 06/09/18 06/22/18 History nitroglycerin [Nitro-Dur] 1 patch TD DAILY #30 ea 06/09/18 06/22/18 Rx pantoprazole 40 mg PO DAILY 06/09/18 06/22/18 History ranolazine [Ranexa] 1,000 mg PO Q12 06/22/18 06/22/18 History Allergies Allergy/AdvReac Type Severity Reaction Status Date / Time iodine Allergy Severe Unknown Verified 06/22/18 06:53 Penicillins Allergy Severe AMOXIL = Verified 06/22/18 06:53 ANAPHYLACTIC RXN clavulanic acid Allergy Unknown Unknown Verified 06/22/18 06:53 morphine AdvReac Mild VOMITING Verified 06/22/18 06:53 Past Med/Surg History Medical History CAD (coronary artery disease) Vitamin D deficiency PVD (peripheral vascular disease) GERD (gastroesophageal reflux disease) HLD (hyperlipidemia) DM II (diabetes mellitus, type II), controlled Anemia Aortic stenosis AAA (abdominal aortic aneurysm) KAY (obstructive sleep apnea) Dementia CKD (chronic kidney disease), stage III HTN (hypertension), benign Chest pain (Acute) Ankle pain, right (Acute) Surgical History History of quadruple bypass H/O heart artery stent Social History Preferred Language: Beninese Communication Ability: Effective 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 and A total of 10 systems reviewed and were otherwise negative Physical Exam Vital Signs Vital Signs - 24 hr 06/22/18 04:02 06/22/18 04:30 06/22/18 05:07 Temperature Temperature Source Rectal Temperature - Source 1 Sepsis Recent Fever Within 48 Hours No Sepsis New/Unexplained Change in Mental Status No Sepsis Action Taken by Nursing No Action Required Pulse Rate 57 L 53 L 61 Pulse Rate [Left Finger] Pulse Rate from SpO2 Sensor Pulse Rhythm Regular Pulse Strength Normal Respiratory Rate 18 14 13 Respiratory Effort / Characteristics Non-Labored Spontaneous Respiratory Depth Normal Respiratory Pattern Regular Blood Pressure 115/75 Blood Pressure [Left Arm] Blood Pressure Mean 88 Blood Pressure Mean [Left Arm] Blood Pressure Position Lying Blood Pressure Position [Left Arm] Pulse Oximetry 96 Oxygen Delivery Method Room Air 06/22/18 05:15 06/22/18 05:30 06/22/18 05:32 Temperature Temperature Source Rectal Temperature - Source 1 34.8 C L Sepsis Recent Fever Within 48 Hours Sepsis New/Unexplained Change in Mental Status Sepsis Action Taken by Nursing Pulse Rate 53 L 57 L 44 L Pulse Rate [Left Finger] Pulse Rate from SpO2 Sensor 56 L Pulse Rhythm Pulse Strength Respiratory Rate 18 24 17 Respiratory Effort / Characteristics Respiratory Depth Respiratory Pattern Blood Pressure 146/79 H 142/78 H Blood Pressure [Left Arm] Blood Pressure Mean 101 99 Blood Pressure Mean [Left Arm] Blood Pressure Position Blood Pressure Position [Left Arm] Pulse Oximetry 95 Oxygen Delivery Method 06/22/18 06:00 06/22/18 06:30 06/22/18 07:00 Temperature Temperature Source Rectal Temperature - Source 1 Sepsis Recent Fever Within 48 Hours Sepsis New/Unexplained Change in Mental Status Sepsis Action Taken by Nursing Pulse Rate 53 L 53 L 56 L Pulse Rate [Left Finger] Pulse Rate from SpO2 Sensor 53 L 53 L 54 L Pulse Rhythm Pulse Strength Respiratory Rate 14 13 14 Respiratory Effort / Characteristics Respiratory Depth Respiratory Pattern Blood Pressure 138/75 125/72 144/71 H Blood Pressure [Left Arm] Blood Pressure Mean 96 89 95 Blood Pressure Mean [Left Arm] Blood Pressure Position Blood Pressure Position [Left Arm] Pulse Oximetry 98 97 95 Oxygen Delivery Method 06/22/18 07:25 06/22/18 07:57 06/22/18 08:13 Temperature 34.9 C L Temperature Source Rectal Rectal Temperature - Source 1 Sepsis Recent Fever Within 48 Hours Sepsis New/Unexplained Change in Mental Status Sepsis Action Taken by Nursing Pulse Rate Pulse Rate [Left Finger] 52 L 58 L Pulse Rate from SpO2 Sensor Pulse Rhythm Pulse Strength Respiratory Rate 16 18 Respiratory Effort / Characteristics Non-Labored Spontaneous Respiratory Depth Normal Respiratory Pattern Regular Blood Pressure Blood Pressure [Left Arm] 135/73 130/63 Blood Pressure Mean Blood Pressure Mean [Left Arm] 93 85 Blood Pressure Position Blood Pressure Position [Left Arm] Pulse Oximetry 93 97 Oxygen Delivery Method Room Air Room Air Room Air 06/22/18 08:17 06/22/18 09:16 06/22/18 11:43 Temperature 35.2 C L 36.9 C Temperature Source Rectal Oral Rectal Temperature - Source 1 Sepsis Recent Fever Within 48 Hours Sepsis New/Unexplained Change in Mental Status Sepsis Action Taken by Nursing Pulse Rate 54 L Pulse Rate [Left Finger] 65 Pulse Rate from SpO2 Sensor Pulse Rhythm Pulse Strength Respiratory Rate 20 18 Respiratory Effort / Characteristics Respiratory Depth Respiratory Pattern Blood Pressure 111/58 L Blood Pressure [Left Arm] 119/65 Blood Pressure Mean Blood Pressure Mean [Left Arm] 83 Blood Pressure Position Blood Pressure Position [Left Arm] Lying Pulse Oximetry 96 98 Oxygen Delivery Method Room Air Room Air 06/22/18 15:29 06/22/18 19:43 06/22/18 23:39 Temperature 36.8 C 36.6 C 37.3 C Temperature Source Oral Oral Oral Rectal Temperature - Source 1 Sepsis Recent Fever Within 48 Hours Sepsis New/Unexplained Change in Mental Status Sepsis Action Taken by Nursing Pulse Rate Pulse Rate [Left Finger] 52 L 56 L 57 L Pulse Rate from SpO2 Sensor Pulse Rhythm Pulse Strength Respiratory Rate 20 20 19 Respiratory Effort / Characteristics Respiratory Depth Normal Respiratory Pattern Blood Pressure Blood Pressure [Left Arm] 110/62 117/63 105/64 Blood Pressure Mean Blood Pressure Mean [Left Arm] 78 81 77 Blood Pressure Position Blood Pressure Position [Left Arm] Lying Lying Lying Pulse Oximetry 96 96 94 Oxygen Delivery Method Room Air Room Air GENERAL: alert, well appearing, well nourished, no distress, non-toxic EYE EXAM: normal conjunctiva, PERRL and EOM's grossly intact OROPHARYNX: no exudate, no erythema, lips, buccal mucosa, and tongue normal and mucous membranes are moist NECK: supple, no nuchal rigidity, no adenopathy, non-tender, no evidence of trauma, no step-off, full range of motion LUNGS: Clear to auscultation. Normal chest wall mechanics, no w/r/r HEART: no murmurs, S1 normal and S2 normal ABDOMEN: abdomen soft, non-tender, normo-active bowel sounds, no masses, no rebound or guarding. NECK: Pain with palpation of the upper and lower C-spine. BACK: Back is symmetrical on inspection and there is no deformity, no midline tenderness, no CVA tenderness. SKIN: no rashes and no bruising UPPER EXTREMITIES: upper extremities are grossly normal. Normal pulses bilaterally, full range of motion bilaterally. LOWER EXTREMITIES: No pitting edema. Normal pulses bilaterally, full range of motion bilaterally. NEURO EXAM: Normal sensorium, cranial nerves II-XII grossly intact, normal speech, no gross weakness of arms, no[gross weakness of legs. Gross sensation intact. Course 0417: The patient was evaluated in room A11B, and a complete history and physical examination were performed. 0629: I reevaluated and updated the patient. I discussed my recommendation for inpatient stay. He was agreeable. Patient was started on a bear hugger due to hypothermia. Likely this is secondary to his hypoglycemia. 0707: I reviewed the patient's case with Dr. Martinez, [facility] [place]. He will evaluate the patient for further management. Patient with recurrent hypoglycemia, fluids changed to include a dextrose solution. Consultations Consultation #1: Dr. Martinez, [facility] [place] Time: 07:07 Administered Medications Aspirin (Ecotrin Ectab) 81 mg PO DAILY DAYSI Stop: 07/22/18 08:59 Last Admin: 06/22/18 11:56 Dose: 81 mg Documented by: [id number] Atorvastatin Calcium (Lipitor) 40 mg PO HS DAYSI Stop: 07/22/18 20:59 Last Admin: 06/22/18 20:26 Dose: 40 mg Documented by: [id number] Clopidogrel Bisulfate (Plavix) 75 mg PO DAILY DAYSI Stop: 07/22/18 08:59 Last Admin: 06/22/18 11:56 Dose: 75 mg Documented by: [id number] Cyanocobalamin (Vitamin B-12) 1,000 mcg PO DAILY DAYSI Stop: 07/22/18 08:59 Last Admin: 06/22/18 11:56 Dose: 1,000 mcg Documented by: [id number] Donepezil HCl (Aricept) 10 mg PO DAILY DAYSI Stop: 07/22/18 08:59 Last Admin: 06/22/18 11:56 Dose: 10 mg Documented by: [id number] Famotidine (Pepcid) 20 mg PO BID DAYSI Stop: 07/22/18 08:59 Last Admin: 06/22/18 20:26 Dose: 20 mg Documented by: [id number] Admin: 06/22/18 11:56 Dose: 20 mg Documented by: [id number] Dextrose/Sodium Chloride (D5w And 1/2nss) 1,000 mls @ 125 mls/hr IV .Q8H DAYSI Stop: 07/22/18 07:14 Last Admin: 06/22/18 22:53 Dose: 125 mls/hr Documented by: [id number] Infusion: 06/22/18 22:53 Dose: 125 mls/hr Documented by: [id number] Admin: 06/22/18 15:01 Dose: 125 mls/hr Documented by: [id number] Infusion: 06/22/18 15:01 Dose: 125 mls/hr Documented by: [id number] Admin: 06/22/18 07:18 Dose: 125 mls/hr Documented by: [id number] Heparin Sodium/Dextrose (Heparin Sodium/Dextrose) 25,000 units in 500 mls @ 26 mls/hr IV .[id number] [facility]; Protocol Stop: 07/22/18 14:44 Last Titration: 06/22/18 23:00 Dose: 1,300 units/hr, 26 mls/hr Documented by: [id number] Cosigned by: [id number] Titration: 06/22/18 22:00 Dose: 0 units/hr, 0 mls/hr Documented by: [id number] Cosigned by: [id number] Admin: 06/22/18 15:01 Dose: 1,450 units/hr, 29 mls/hr Documented by: [id number] Cosigned by: [id number] Insulin Aspart (Novolog Flexpen) 0 units SC ACHS DAYSI Stop: 07/22/18 11:29 Last Admin: 06/22/18 21:03 Dose: Not Given Documented by: [id number] Cosigned by: [id number] Admin: 06/22/18 17:12 Dose: Not Given Documented by: [id number] Admin: 06/22/18 12:03 Dose: Not Given Documented by: [id number] Cosigned by: [id number] Metoprolol Tartrate (Lopressor) 50 mg PO BID [facility] Stop: 07/22/18 08:59 Last Admin: 06/22/18 21:59 Dose: Not Given Documented by: [id number] Admin: 06/22/18 11:57 Dose: 50 mg Documented by: [id number] Miscellaneous (Remove Nitro-Dur Patch) 1 ea N/A DAILY@2100 DAYSI Stop: 07/22/18 20:59 Last Admin: 06/22/18 20:26 Dose: 1 ea Documented by: [id number] Nitroglycerin (Nitro-Dur 0.8mg/Hr) 1 patch TD DAILY DAYSI Stop: 07/22/18 08:59 Last Admin: 06/22/18 15:32 Dose: Not Given Documented by: [id number] Pantoprazole Sodium (Protonix) 40 mg PO DAILY DAYSI Stop: 07/22/18 08:59 Last Admin: 06/22/18 11:56 Dose: 40 mg Documented by: [id number] Ranolazine (Ranexa) 1,000 mg PO Q12 DAYSI Stop: 07/22/18 08:59 Last Admin: 06/22/18 20:49 Dose: 1,000 mg Documented by: [id number] Admin: 06/22/18 11:56 Dose: 1,000 mg Documented by: [id number] Vitamin D (Vitamin D3) 1,000 units PO DAILY DAYSI Stop: 07/22/18 08:59 Last Admin: 06/22/18 11:56 Dose: 1,000 units Documented by: [id number] Discontinued Medications Sodium Chloride (Nss 1000ml) 1,000 mls @ 999 mls/hr IV .[id number] ONE Stop: 06/22/18 07:00 Last Infusion: 06/22/18 07:07 Dose: 0 mls/hr Documented by: [id number] Admin: 06/22/18 06:02 Dose: 999 mls/hr Documented by: [id number] Perflutren Lipid Microsphere (Definity) 2 ml IV ONCE ONE Stop: 06/22/18 14:08 Last Admin: 06/22/18 14:08 Dose: 2 ml Documented by: [id number] Medical Decision Making Differential Diagnosis Differential diagnosis: Etiologies such as metabolic, infection, hypoglycemia, electrolyte abnormalities, cardiac sources, intracerebral event, toxicologic, neurologic, as well as others were entertained. Medical Records Attestation: I reviewed the patient's medical records. Home Medications Current Medication List: was personally reviewed by me Laboratory Data Attestation: I reviewed the patient's lab results. Result diagrams: 06/22/18 04:32 06/22/18 05:31 Lab Results 06/22/18 06/22/18 06/22/18 Range/Units 04:18 04:21 04:32 WBC 8.90 (4.8-10.8) K/uL RBC 4.13 L (4.7-6.1) M/uL Hgb 12.2 L (14.0-18.0) g/dL Hct 36.0 L (42-52) % MCV 87.2 (80-100) fL MCH 29.5 (25-34) pg MCHC 33.9 (32-36) g/dL RDW Std Deviation 45.5 (36.4-46.3) fL RDW Coeff of Sandra 14.4 (11.5-14.5) % Plt Count 251 (130-400) K/uL MPV 10.0 (7.4-10.4) fL Immature Gran % (Auto) 0.2 % Neut % (Auto) 69.2 % Lymph % (Auto) 21.1 % [place] % (Auto) 7.8 % Eos % (Auto) 1.5 % Baso % (Auto) 0.2 % Immature Gran # (Auto) 0.02 (0.00-0.02) K/uL Neut # (Auto) 6.16 (1.4-6.5) K/uL Lymph # (Auto) 1.88 (1.2-3.4) K/uL [place] # (Auto) 0.69 H (0.11-0.59) K/uL Eos # (Auto) 0.13 (0-0.5) K/uL Baso # (Auto) 0.02 (0-0.2) K/uL PT (9.0-12.0) Seconds INR (0.9-1.1) APTT (21.0-31.0) Seconds PTT Ratio Sodium (136-145) mmol/L Potassium (3.5-5.1) mmol/L Chloride (98-107) mmol/L Carbon Dioxide (21-32) mmol/L Anion Gap (3-11) BUN (7-18) mg/dl Creatinine (0.6-1.4) mg/dl Est Cr Clr Drug Dosing ml/min Est GFR ( Amer) Est GFR (Non-Af Amer) BUN/Creatinine Ratio (10-20) Glucose (70-99) mg/dl POC Glucose 78 84 (70-99) Lactate (0.4-2.0) mmol/L Calcium (8.5-10.1) mg/dl Magnesium (1.8-2.4) mg/dl Total Bilirubin (0.2-1) mg/dl AST (15-37) U/L ALT (12-78) U/L Alkaline Phosphatase (45-117) U/L Total Creatine Kinase (39-308) U/L Troponin I (0-0.045) ng/ml Total Protein (6.4-8.2) gm/dl Albumin (3.4-5.0) gm/dl Globulin (2.5-4.0) gm/dl Albumin/Globulin Ratio (0.9-2) Lipase (73-393) U/L Procalcitonin (0-0.5) ng/ml Urine Color Urine Appearance (Clear) Urine pH (4.5-7.5) Ur Specific [place] (1.000-1.030) Urine Protein (Negative) Urine Glucose (UA) (Negative) Urine Ketones (Negative) Urine Blood (Negative) Urine Nitrite (Negative) Urine Bilirubin (Negative) Urine Urobilinogen (Negative) Ur Leukocyte Esterase (Negative) 06/22/18 06/22/18 06/22/18 Range/Units 04:32 05:09 05:31 WBC (4.8-10.8) K/uL RBC (4.7-6.1) M/uL Hgb (14.0-18.0) g/dL Hct (42-52) % MCV (80-100) fL MCH (25-34) pg MCHC (32-36) g/dL RDW Std Deviation (36.4-46.3) fL RDW Coeff of Sandra (11.5-14.5) % Plt Count (130-400) K/uL MPV (7.4-10.4) fL Immature Gran % (Auto) % Neut % (Auto) % Lymph % (Auto) % [place] % (Auto) % Eos % (Auto) % Baso % (Auto) % Immature Gran # (Auto) (0.00-0.02) K/uL Neut # (Auto) (1.4-6.5) K/uL Lymph # (Auto) (1.2-3.4) K/uL [place] # (Auto) (0.11-0.59) K/uL Eos # (Auto) (0-0.5) K/uL Baso # (Auto) (0-0.2) K/uL PT (9.0-12.0) Seconds INR (0.9-1.1) APTT (21.0-31.0) Seconds PTT Ratio Sodium 136 (136-145) mmol/L Potassium 4.5 (3.5-5.1) mmol/L Chloride 103 (98-107) mmol/L Carbon Dioxide 28 (21-32) mmol/L Anion Gap 5.0 (3-11) BUN 20 H (7-18) mg/dl Creatinine 1.73 H (0.6-1.4) mg/dl Est Cr Clr Drug Dosing 37.1 ml/min Est GFR ( Amer) 41.4 Est GFR (Non-Af Amer) 35.7 BUN/Creatinine Ratio 11.8 (10-20) Glucose 136 H (70-99) mg/dl POC Glucose 88 (70-99) Lactate (0.4-2.0) mmol/L Calcium 8.8 (8.5-10.1) mg/dl Magnesium 2.3 (1.8-2.4) mg/dl Total Bilirubin 0.6 (0.2-1) mg/dl AST 24 (15-37) U/L ALT 20 (12-78) U/L Alkaline Phosphatase 71 (45-117) U/L Total Creatine Kinase (39-308) U/L Troponin I 1.000 H* (0-0.045) ng/ml Total Protein 7.1 (6.4-8.2) gm/dl Albumin 3.4 (3.4-5.0) gm/dl Globulin 3.7 (2.5-4.0) gm/dl Albumin/Globulin Ratio 0.9 (0.9-2) Lipase 712 H (73-393) U/L Procalcitonin (0-0.5) ng/ml Urine Color Urine Appearance (Clear) Urine pH (4.5-7.5) Ur Specific [place] (1.000-1.030) Urine Protein (Negative) Urine Glucose (UA) (Negative) Urine Ketones (Negative) Urine Blood (Negative) Urine Nitrite (Negative) Urine Bilirubin (Negative) Urine Urobilinogen (Negative) Ur Leukocyte Esterase (Negative) 06/22/18 06/22/18 06/22/18 Range/Units 07:12 07:16 07:44 WBC (4.8-10.8) K/uL RBC (4.7-6.1) M/uL Hgb (14.0-18.0) g/dL Hct (42-52) % MCV (80-100) fL MCH (25-34) pg MCHC (32-36) g/dL RDW Std Deviation (36.4-46.3) fL RDW Coeff of Sandra (11.5-14.5) % Plt Count (130-400) K/uL MPV (7.4-10.4) fL Immature Gran % (Auto) % Neut % (Auto) % Lymph % (Auto) % [place] % (Auto) % Eos % (Auto) % Baso % (Auto) % Immature Gran # (Auto) (0.00-0.02) K/uL Neut # (Auto) (1.4-6.5) K/uL Lymph # (Auto) (1.2-3.4) K/uL [place] # (Auto) (0.11-0.59) K/uL Eos # (Auto) (0-0.5) K/uL Baso # (Auto) (0-0.2) K/uL PT (9.0-12.0) Seconds INR (0.9-1.1) APTT (21.0-31.0) Seconds PTT Ratio Sodium (136-145) mmol/L Potassium (3.5-5.1) mmol/L Chloride (98-107) mmol/L Carbon Dioxide (21-32) mmol/L Anion Gap (3-11) BUN (7-18) mg/dl Creatinine (0.6-1.4) mg/dl Est Cr Clr Drug Dosing ml/min Est GFR ( Amer) Est GFR (Non-Af Amer) BUN/Creatinine Ratio (10-20) Glucose (70-99) mg/dl POC Glucose 34 L* 35 L* 67 L* (70-99) Lactate (0.4-2.0) mmol/L Calcium (8.5-10.1) mg/dl Magnesium (1.8-2.4) mg/dl Total Bilirubin (0.2-1) mg/dl AST (15-37) U/L ALT (12-78) U/L Alkaline Phosphatase (45-117) U/L Total Creatine Kinase (39-308) U/L Troponin I (0-0.045) ng/ml Total Protein (6.4-8.2) gm/dl Albumin (3.4-5.0) gm/dl Globulin (2.5-4.0) gm/dl Albumin/Globulin Ratio (0.9-2) Lipase (73-393) U/L Procalcitonin (0-0.5) ng/ml Urine Color Urine Appearance (Clear) Urine pH (4.5-7.5) Ur Specific [place] (1.000-1.030) Urine Protein (Negative) Urine Glucose (UA) (Negative) Urine Ketones (Negative) Urine Blood (Negative) Urine Nitrite (Negative) Urine Bilirubin (Negative) Urine Urobilinogen (Negative) Ur Leukocyte Esterase (Negative) 06/22/18 06/22/18 06/22/18 Range/Units 07:54 08:00 08:21 WBC (4.8-10.8) K/uL RBC (4.7-6.1) M/uL Hgb (14.0-18.0) g/dL Hct (42-52) % MCV (80-100) fL MCH (25-34) pg MCHC (32-36) g/dL RDW Std Deviation (36.4-46.3) fL RDW Coeff of Sandra (11.5-14.5) % Plt Count (130-400) K/uL MPV (7.4-10.4) fL Immature Gran % (Auto) % Neut % (Auto) % Lymph % (Auto) % [place] % (Auto) % Eos % (Auto) % Baso % (Auto) % Immature Gran # (Auto) (0.00-0.02) K/uL Neut # (Auto) (1.4-6.5) K/uL Lymph # (Auto) (1.2-3.4) K/uL [place] # (Auto) (0.11-0.59) K/uL Eos # (Auto) (0-0.5) K/uL Baso # (Auto) (0-0.2) K/uL PT (9.0-12.0) Seconds INR (0.9-1.1) APTT (21.0-31.0) Seconds PTT Ratio Sodium (136-145) mmol/L Potassium (3.5-5.1) mmol/L Chloride (98-107) mmol/L Carbon Dioxide (21-32) mmol/L Anion Gap (3-11) BUN (7-18) mg/dl Creatinine (0.6-1.4) mg/dl Est Cr Clr Drug Dosing ml/min Est GFR ( Amer) Est GFR (Non-Af Amer) BUN/Creatinine Ratio (10-20) Glucose (70-99) mg/dl POC Glucose 122 H (70-99) Lactate 1.8 (0.4-2.0) mmol/L Calcium (8.5-10.1) mg/dl Magnesium (1.8-2.4) mg/dl Total Bilirubin (0.2-1) mg/dl AST (15-37) U/L ALT (12-78) U/L Alkaline Phosphatase (45-117) U/L Total Creatine Kinase (39-308) U/L Troponin I (0-0.045) ng/ml Total Protein (6.4-8.2) gm/dl Albumin (3.4-5.0) gm/dl Globulin (2.5-4.0) gm/dl Albumin/Globulin Ratio (0.9-2) Lipase (73-393) U/L Procalcitonin (0-0.5) ng/ml Urine Color Yellow Urine Appearance Clear (Clear) Urine pH 5.0 (4.5-7.5) Ur Specific [place] 1.012 (1.000-1.030) Urine Protein Negative (Negative) Urine Glucose (UA) Negative (Negative) Urine Ketones Negative (Negative) Urine Blood Negative (Negative) Urine Nitrite Negative (Negative) Urine Bilirubin Negative (Negative) Urine Urobilinogen Negative (Negative) Ur Leukocyte Esterase Negative (Negative) 06/22/18 06/22/18 06/22/18 Range/Units 08:56 09:44 09:59 WBC (4.8-10.8) K/uL RBC (4.7-6.1) M/uL Hgb (14.0-18.0) g/dL Hct (42-52) % MCV (80-100) fL MCH (25-34) pg MCHC (32-36) g/dL RDW Std Deviation (36.4-46.3) fL RDW Coeff of Sandra (11.5-14.5) % Plt Count (130-400) K/uL MPV (7.4-10.4) fL Immature Gran % (Auto) % Neut % (Auto) % Lymph % (Auto) % [place] % (Auto) % Eos % (Auto) % Baso % (Auto) % Immature Gran # (Auto) (0.00-0.02) K/uL Neut # (Auto) (1.4-6.5) K/uL Lymph # (Auto) (1.2-3.4) K/uL [place] # (Auto) (0.11-0.59) K/uL Eos # (Auto) (0-0.5) K/uL Baso # (Auto) (0-0.2) K/uL PT (9.0-12.0) Seconds INR (0.9-1.1) APTT (21.0-31.0) Seconds PTT Ratio Sodium (136-145) mmol/L Potassium (3.5-5.1) mmol/L Chloride (98-107) mmol/L Carbon Dioxide (21-32) mmol/L Anion Gap (3-11) BUN (7-18) mg/dl Creatinine (0.6-1.4) mg/dl Est Cr Clr Drug Dosing ml/min Est GFR ( Amer) Est GFR (Non-Af Amer) BUN/Creatinine Ratio (10-20) Glucose (70-99) mg/dl POC Glucose 103 H 94 (70-99) Lactate (0.4-2.0) mmol/L Calcium (8.5-10.1) mg/dl Magnesium (1.8-2.4) mg/dl Total Bilirubin (0.2-1) mg/dl AST (15-37) U/L ALT (12-78) U/L Alkaline Phosphatase (45-117) U/L Total Creatine Kinase (39-308) U/L Troponin I (0-0.045) ng/ml Total Protein (6.4-8.2) gm/dl Albumin (3.4-5.0) gm/dl Globulin (2.5-4.0) gm/dl Albumin/Globulin Ratio (0.9-2) Lipase (73-393) U/L Procalcitonin < 0.05 (0-0.5) ng/ml Urine Color Urine Appearance (Clear) Urine pH (4.5-7.5) Ur Specific [place] (1.000-1.030) Urine Protein (Negative) Urine Glucose (UA) (Negative) Urine Ketones (Negative) Urine Blood (Negative) Urine Nitrite (Negative) Urine Bilirubin (Negative) Urine Urobilinogen (Negative) Ur Leukocyte Esterase (Negative) 06/22/18 06/22/18 06/22/18 Range/Units 11:07 11:46 11:46 WBC (4.8-10.8) K/uL RBC (4.7-6.1) M/uL Hgb (14.0-18.0) g/dL Hct (42-52) % MCV (80-100) fL MCH (25-34) pg MCHC (32-36) g/dL RDW Std Deviation (36.4-46.3) fL RDW Coeff of Sandra (11.5-14.5) % Plt Count (130-400) K/uL MPV (7.4-10.4) fL Immature Gran % (Auto) % Neut % (Auto) % Lymph % (Auto) % [place] % (Auto) % Eos % (Auto) % Baso % (Auto) % Immature Gran # (Auto) (0.00-0.02) K/uL Neut # (Auto) (1.4-6.5) K/uL Lymph # (Auto) (1.2-3.4) K/uL [place] # (Auto) (0.11-0.59) K/uL Eos # (Auto) (0-0.5) K/uL Baso # (Auto) (0-0.2) K/uL PT 10.9 (9.0-12.0) Seconds INR 1.1 (0.9-1.1) APTT (21.0-31.0) Seconds PTT Ratio Sodium (136-145) mmol/L Potassium (3.5-5.1) mmol/L Chloride (98-107) mmol/L Carbon Dioxide (21-32) mmol/L Anion Gap (3-11) BUN (7-18) mg/dl Creatinine (0.6-1.4) mg/dl Est Cr Clr Drug Dosing ml/min Est GFR ( Amer) Est GFR (Non-Af Amer) BUN/Creatinine Ratio (10-20) Glucose (70-99) mg/dl POC Glucose 108 H (70-99) Lactate (0.4-2.0) mmol/L Calcium (8.5-10.1) mg/dl Magnesium (1.8-2.4) mg/dl Total Bilirubin (0.2-1) mg/dl AST (15-37) U/L ALT (12-78) U/L Alkaline Phosphatase (45-117) U/L Total Creatine Kinase 530 H (39-308) U/L Troponin I 13.600 H* (0-0.045) ng/ml Total Protein (6.4-8.2) gm/dl Albumin (3.4-5.0) gm/dl Globulin (2.5-4.0) gm/dl Albumin/Globulin Ratio (0.9-2) Lipase (73-393) U/L Procalcitonin (0-0.5) ng/ml Urine Color Urine Appearance (Clear) Urine pH (4.5-7.5) Ur Specific [place] (1.000-1.030) Urine Protein (Negative) Urine Glucose (UA) (Negative) Urine Ketones (Negative) Urine Blood (Negative) Urine Nitrite (Negative) Urine Bilirubin (Negative) Urine Urobilinogen (Negative) Ur Leukocyte Esterase (Negative) 06/22/18 06/22/18 06/22/18 Range/Units 11:46 16:23 17:43 WBC (4.8-10.8) K/uL RBC (4.7-6.1) M/uL Hgb (14.0-18.0) g/dL Hct (42-52) % MCV (80-100) fL MCH (25-34) pg MCHC (32-36) g/dL RDW Std Deviation (36.4-46.3) fL RDW Coeff of Sandra (11.5-14.5) % Plt Count (130-400) K/uL MPV (7.4-10.4) fL Immature Gran % (Auto) % Neut % (Auto) % Lymph % (Auto) % [place] % (Auto) % Eos % (Auto) % Baso % (Auto) % Immature Gran # (Auto) (0.00-0.02) K/uL Neut # (Auto) (1.4-6.5) K/uL Lymph # (Auto) (1.2-3.4) K/uL [place] # (Auto) (0.11-0.59) K/uL Eos # (Auto) (0-0.5) K/uL Baso # (Auto) (0-0.2) K/uL PT (9.0-12.0) Seconds INR (0.9-1.1) APTT 27.0 (21.0-31.0) Seconds PTT Ratio 1.0 Sodium (136-145) mmol/L Potassium (3.5-5.1) mmol/L Chloride (98-107) mmol/L Carbon Dioxide (21-32) mmol/L Anion Gap (3-11) BUN (7-18) mg/dl Creatinine (0.6-1.4) mg/dl Est Cr Clr Drug Dosing ml/min Est GFR ( Amer) Est GFR (Non-Af Amer) BUN/Creatinine Ratio (10-20) Glucose (70-99) mg/dl POC Glucose 94 (70-99) Lactate (0.4-2.0) mmol/L Calcium (8.5-10.1) mg/dl Magnesium (1.8-2.4) mg/dl Total Bilirubin (0.2-1) mg/dl AST (15-37) U/L ALT (12-78) U/L Alkaline Phosphatase (45-117) U/L Total Creatine Kinase (39-308) U/L Troponin I 29.000 H* (0-0.045) ng/ml Total Protein (6.4-8.2) gm/dl Albumin (3.4-5.0) gm/dl Globulin (2.5-4.0) gm/dl Albumin/Globulin Ratio (0.9-2) Lipase (73-393) U/L Procalcitonin (0-0.5) ng/ml Urine Color Urine Appearance (Clear) Urine pH (4.5-7.5) Ur Specific [place] (1.000-1.030) Urine Protein (Negative) Urine Glucose (UA) (Negative) Urine Ketones (Negative) Urine Blood (Negative) Urine Nitrite (Negative) Urine Bilirubin (Negative) Urine Urobilinogen (Negative) Ur Leukocyte Esterase (Negative) 06/22/18 06/22/18 06/23/18 Range/Units 20:23 20:28 00:15 WBC (4.8-10.8) K/uL RBC (4.7-6.1) M/uL Hgb (14.0-18.0) g/dL Hct (42-52) % MCV (80-100) fL MCH (25-34) pg MCHC (32-36) g/dL RDW Std Deviation (36.4-46.3) fL RDW Coeff of Sandra (11.5-14.5) % Plt Count (130-400) K/uL MPV (7.4-10.4) fL Immature Gran % (Auto) % Neut % (Auto) % Lymph % (Auto) % [place] % (Auto) % Eos % (Auto) % Baso % (Auto) % Immature Gran # (Auto) (0.00-0.02) K/uL Neut # (Auto) (1.4-6.5) K/uL Lymph # (Auto) (1.2-3.4) K/uL [place] # (Auto) (0.11-0.59) K/uL Eos # (Auto) (0-0.5) K/uL Baso # (Auto) (0-0.2) K/uL PT (9.0-12.0) Seconds INR (0.9-1.1) APTT 99.9 H* (21.0-31.0) Seconds PTT Ratio 3.7 Sodium (136-145) mmol/L Potassium (3.5-5.1) mmol/L Chloride (98-107) mmol/L Carbon Dioxide (21-32) mmol/L Anion Gap (3-11) BUN (7-18) mg/dl Creatinine (0.6-1.4) mg/dl Est Cr Clr Drug Dosing ml/min Est GFR ( Amer) Est GFR (Non-Af Amer) BUN/Creatinine Ratio (10-20) Glucose (70-99) mg/dl POC Glucose 136 H (70-99) Lactate (0.4-2.0) mmol/L Calcium (8.5-10.1) mg/dl Magnesium (1.8-2.4) mg/dl Total Bilirubin (0.2-1) mg/dl AST (15-37) U/L ALT (12-78) U/L Alkaline Phosphatase (45-117) U/L Total Creatine Kinase (39-308) U/L Troponin I 18.900 H* (0-0.045) ng/ml Total Protein (6.4-8.2) gm/dl Albumin (3.4-5.0) gm/dl Globulin (2.5-4.0) gm/dl Albumin/Globulin Ratio (0.9-2) Lipase (73-393) U/L Procalcitonin (0-0.5) ng/ml Urine Color Urine Appearance (Clear) Urine pH (4.5-7.5) Ur Specific [place] (1.000-1.030) Urine Protein (Negative) Urine Glucose (UA) (Negative) Urine Ketones (Negative) Urine Blood (Negative) Urine Nitrite (Negative) Urine Bilirubin (Negative) Urine Urobilinogen (Negative) Ur Leukocyte Esterase (Negative) 06/23/18 Range/Units 00:33 WBC (4.8-10.8) K/uL RBC (4.7-6.1) M/uL Hgb (14.0-18.0) g/dL Hct (42-52) % MCV (80-100) fL MCH (25-34) pg MCHC (32-36) g/dL RDW Std Deviation (36.4-46.3) fL RDW Coeff of Sandra (11.5-14.5) % Plt Count (130-400) K/uL MPV (7.4-10.4) fL Immature Gran % (Auto) % Neut % (Auto) % Lymph % (Auto) % [place] % (Auto) % Eos % (Auto) % Baso % (Auto) % Immature Gran # (Auto) (0.00-0.02) K/uL Neut # (Auto) (1.4-6.5) K/uL Lymph # (Auto) (1.2-3.4) K/uL [place] # (Auto) (0.11-0.59) K/uL Eos # (Auto) (0-0.5) K/uL Baso # (Auto) (0-0.2) K/uL PT (9.0-12.0) Seconds INR (0.9-1.1) APTT (21.0-31.0) Seconds PTT Ratio Sodium (136-145) mmol/L Potassium (3.5-5.1) mmol/L Chloride (98-107) mmol/L Carbon Dioxide (21-32) mmol/L Anion Gap (3-11) BUN (7-18) mg/dl Creatinine (0.6-1.4) mg/dl Est Cr Clr Drug Dosing ml/min Est GFR ( Amer) Est GFR (Non-Af Amer) BUN/Creatinine Ratio (10-20) Glucose (70-99) mg/dl POC Glucose 150 H (70-99) Lactate (0.4-2.0) mmol/L Calcium (8.5-10.1) mg/dl Magnesium (1.8-2.4) mg/dl Total Bilirubin (0.2-1) mg/dl AST (15-37) U/L ALT (12-78) U/L Alkaline Phosphatase (45-117) U/L Total Creatine Kinase (39-308) U/L Troponin I (0-0.045) ng/ml Total Protein (6.4-8.2) gm/dl Albumin (3.4-5.0) gm/dl Globulin (2.5-4.0) gm/dl Albumin/Globulin Ratio (0.9-2) Lipase (73-393) U/L Procalcitonin (0-0.5) ng/ml Urine Color Urine Appearance (Clear) Urine pH (4.5-7.5) Ur Specific [place] (1.000-1.030) Urine Protein (Negative) Urine Glucose (UA) (Negative) Urine Ketones (Negative) Urine Blood (Negative) Urine Nitrite (Negative) Urine Bilirubin (Negative) Urine Urobilinogen (Negative) Ur Leukocyte Esterase (Negative) Imaging Data Attestation: I personally reviewed and interpreted this imaging study as follows: My Impression: Single View Chest X-ray: 1. Sternotomy wires noted. 2. Multiple cardiac stents noted. 3. No effusions. 4. No focal consolidation. 5. No acute pulmonary edema. Radiologist's Impression: CT C SPINE: Degenerative changes without evidence of acute fracture. Radiologist: Carissa Alarcon M.D. Study ready at 05:15 and initial results transmitted at 05:28. CT HEAD: Compared to 02/05/15. No intracranial hemorrhage or skull fracture. Involutional changes and small vessel disease. Small mastoid fluid. Radiologist: Carissa Alarcon M.D. Study ready at 05:15 and initial results transmitted at 05:21. ECG Data Attestation: I personally reviewed and interpreted this ECG as follows: Indication: other (hypoglycemia) Rate (beats per minute): 51 Rhythm: sinus bradycardia Findings: + other (normal axis, normal intervals); no ST elevation Blood Pressure Blood Pressure Findings: Normal blood pressure Blood Pressure Disposition: did not require urgent referral MDM Narrative Patient presented with altered mental status and recent hypoglycemia that was treated by EMS in the field and was improving on arrival. Patient was confused here however was improving according to EMS description of their initial encounter. It was thought that the hypoglycemia was the cause of the altered mental status. Given patient's reported recent fall, patient sent for CT imagi ng of the head and C-spine which were found to be unremarkable. Patient had no focal neuro deficits to suggest occult stroke. Patient's blood sugar here was improved during the first several checks while he was being observed for several hours, however patient then found to be hypothermic and a bear hugger was placed. Following this, patient then had a recurrent episode of hypoglycemia and was started on a dextrose containing solution. Patient's other labs reassuring with the exception of his troponin which is elevated at 1. However patient had a cardiac catheterization within the last 2 weeks. It is unclear if this is trending up or still trending down because of the recent intervention. Patient on multiple repeat exams denied chest pain or trouble breathing, and had no acute EKG findings. Patient does have known CAD and has had prior cardiac bypass surgery. Patient otherwise hemodynamically stable. Concern for hypothermia likely related to hypoglycemia, however could be an indication of evolving infectious etiology. Due to patient's persistent altered mentation despite his slow improvement, recurrent hypoglycemia, hypothermia, and elevated troponin, case discussed with hospitalist for additional evaluation and management. I do not suspect acute pancreatitis despite elevated lipase, unclear etiology of the elevated lipase. Patient with no abdominal pain, nausea or vomiting. Impression & Plan Hypoglycemia, Hypothermia, Altered mental status, Acute kidney injury, Elevated lipase Discharge Plan Visit Data *Final* Discharge Date/Time: 06/22/18 09:16 Chief Complaint: Hypoglycemia ED Provider: Bri Dias Discharge Problem: Hypoglycemia, Hypothermia, Altered mental status, Acute kidney injury, Elevated lipase Patient Disposition: Admitted As Inpatient Discharge Instructions Interventions: ED Discharge Assessment Last Done: 06/22/18 09:16 Discharge Problem: Hypothermia Qualifiers: Encounter type: initial encounter Qualified Code(s): T68.XXXA - Hypothermia, initial encounter Altered mental status Qualifiers: Altered mental status type: unspecified Qualified Code(s): R41.82 - Altered mental status, unspecified The scribe's documentation has been prepared under my direction and personally reviewed by me in its entirety. I confirm that the note above accurately reflects all work, treatment, procedures, and medical decision making performed by me.
[2018-06-23 05:33] LABS: Hematocrit (blood only) 32.7 % (42-52); Hemoglobin 11.1 g/dL (14.0-18.0); Mean Corpuscular Hgb Conc 33.9 g/dL (32-36); Mean Corpuscular Volume 85.6 fL (80-100); Platelet Count 236 K/uL (130-400); RDW Coefficient of Variation 14.4 % (11.5-14.5); RDW Standard Deviation 44.9 fL (36.4-46.3); Red Blood Count 3.82 M/uL (4.7-6.1); White Blood Count 8.86 K/uL (4.8-10.8)
[2018-06-23] MEDS: D5W AND 1/2NSS 1,000 ML IV SCH ×3 (06:01→20:29)
[2018-06-23 06:03] LABS: Albumin Level 2.9 gm/dl (3.4-5.0); Calcium 8.1 mg/dl (8.5-10.1); Est GFR (African American) 49.6; Est GFR (Non-African American) 42.8; Magnesium 2.1 mg/dl (1.8-2.4); Potassium 4.6 mmol/L (3.5-5.1)
[2018-06-23 06:05] LABS: Albumin Globulin Ratio 0.9 (0.9-2); Globulin 3.1 gm/dl (2.5-4.0); Phosphorus 2.5 mg/dl (2.5-4.9)
[2018-06-23 06:31] LABS: Partial Thromboplastin Ratio > 5.1
[2018-06-23 06:38] LABS: Partial Thromboplastin Time > 139.0 Seconds (21.0-31.0)
[2018-06-23 07:16] LABS: Estimated Average Glucose 128 mg/dl; Hemoglobin A1C 6.1 % (4.5-5.6)
[2018-06-23 08:11] LABS: Partial Thromboplastin Ratio 4.5
[2018-06-23 08:18] LABS: Partial Thromboplastin Time 121.9 Seconds (21.0-31.0)
[2018-06-23] MEDS: CLOPIDOGREL BISULFATE 75 MG TAB PO SCH (08:45)
[2018-06-23] MEDS: PANTOprazole 40 MG TAB PO SCH (08:45)
[2018-06-23] MEDS: RANOLAZINE 500 MG ER TAB PO SCH ×2 (08:45→20:29)
[2018-06-23] MEDS: METOPROLOL TARTRATE 50 MG TAB PO SCH ×2 (08:45→20:29)
[2018-06-23] MEDS: DONEPEZIL HCL 10 MG TAB PO SCH (08:46)
[2018-06-23] MEDS: NITROGLYCERIN TD SCH (08:46)
[2018-06-23] MEDS: CYANOCOBALAMIN 500 MCG TABLET (VITAMIN B-12) PO SCH (08:46)
[2018-06-23] MEDS: CHOLECALCIFEROL 1,000 UNITS TAB PO SCH (08:46)
[2018-06-23] MEDS: FAMOTIDINE 20 MG TAB PO SCH ×2 (08:46→20:29)
[2018-06-23] MEDS: ASPIRIN 81 MG ECTAB PO SCH (08:46)
[2018-06-23] MEDS: INSULIN ASPART 100 UNITS/ML 3 ML PEN SC SCH ×4 (08:48→21:24)
[2018-06-23 10:24] LABS: Partial Thromboplastin Ratio 2.3
[2018-06-23 10:41] LABS: Partial Thromboplastin Time 61.4 Seconds (21.0-31.0)
--- NOTE | 2018-06-23 12:39 | Cardiology Progress Note ---
Date of Service June 23, 2018 Assessment & Plan (1) Non-ST elevation (NSTEMI) myocardial infarction: 2. Multivessel coronary artery disease 3. Moderate aortic stenosis 4. Sinus bradycardia 5. Hypoglycemia, insulin-dependent diabetes 6. Altered mental status 7. Hypothermia 8. Acute on chronic renal insufficiency 9. Suspected vascular dementia. Patient denies any chest pain, limiting shortness of breath. One episode of nausea, relative hypotension, bradycardia this afternoon which seemed more vagal in nature. Troponin is peaked, LV function largely unchanged from prior. At this point recommend continued medical management of NSTEMI. Patient has complex, severe underlying coronary artery disease and no plans for intervention unless refractory chest pain/hemodynamic instability. Okay to discontinue heparin infusion Continue home aspirin, clopidogrel Okay with heart rates in 40s and 50s as long as asymptomatic. Can continue home metoprolol. Continue nitro patch, Ranexa If remains stable overnight could potentially return home from a cardiac standpoint tomorrow. Subjective Patient reports feeling well this morning. Denies any chest pain. Feels like he is at his baseline. Wants to go home. Had one episode this afternoon when getting up to go to the bathroom became nauseated, heart rates in the 40s. Symptoms resolved quickly. Telemetry reviewheart rates primarily in the 50s, occasionally in the 40s. Physical Exam Vital Signs (Past 24 Hours): Last Vital Signs Temp 36.9 C 06/23/18 07:14 Pulse 49 L 06/23/18 08:00 Resp 18 06/23/18 07:14 BP 116/68 06/23/18 07:14 Pulse Ox 98 06/23/18 07:14 Physical Exam: General: Comfortable, no acute distress Eyes: Sclerae anicteric, extraocular movements intact Lungs: Clear to auscultation bilaterally, no rhonchi or wheezes Cardiac: Regular rate and rhythm, 3/6 systolic ejection murmur Abdomen: Soft, nontender, nondistended, positive bowel sounds. Extremities: Well perfused, no peripheral edema Skin: No rashes or lesions. Neuro: Nonfocal Psych: Alert and oriented, normal affect and mood
[2018-06-23] MEDS: Heparin Adult STANDARD Wt-Based Dextrose 5% 25,000 units/500 mL IV SCH (15:08)
[2018-06-23 17:27] LABS: Partial Thromboplastin Ratio 4.7
[2018-06-23 17:37] LABS: Partial Thromboplastin Time 128.3 Seconds (21.0-31.0)
[2018-06-23] MEDS: ATORVASTATIN 40 MG TAB PO SCH (20:29)
--- NOTE | 2018-06-23 22:31 | Hospitalist Progress Note ---
Date of Service June 23, 2018 Assessment & Plan (1) DM II (diabetes mellitus, type II), controlled: (2) Hypoglycemia: - Admit to PCU - Stop D5W + 1/2 NSS after going to the floor since pt is able to tolerate oral diet and glucose is improving. Pt with CHF so monitor volume status closely. - Continue BG checks Q4H and Q1H prn. IV and PO glucose agents ordered prn for decreased glucose. Will order ISS so this may be used if pt's glucose does trend upward. Hold Levemir 40 U QPM - will need education regarding medication and daily logging of the administration to prevent accidental overdose with antiglycemic agents. - DM/ HH diet - A1C with am labs (3) Hypothermia: - Improving at this time - Monitor for AMS, pt is AAO x 3 during my exam - Imaging reviewed per EMR. (4) Altered mental status: As above (5) Acute kidney injury: - Cr. elevated at 1.73 on admision ,improved to 1.49 - IVFs given in ER, likely to help renal function. Avoid other nephrotoxins and renally dose medications. (6) CKD (chronic kidney disease), stage III: - Slightly elevated compared to baseline. As noted above. - Hold nephrotoxins and renally dose appropriate medications. (7) Elevated lipase: - No abdominal pain, will trend am lipase. - Allow diet for now with significant hypoglycemia as above. - Consider further pancreatic imaging with abd CT if other changes in lipase levels or concern for other pancreatic involvement with causing hypoglycemia if medication cause is ruled out. (8) Systolic and diastolic CHF, chronic: - EF of 45-50% as per Echo in Jan 2018 - Appears to be euvolemic currently, monitor volume status with IVFs from the er. - Daily weights, strict I/Os, HH diet - Follows with cardiology, Dr. Christine as outpatient, has ECHO [id number] as outpatient for followup. (9) History of quadruple bypass: (10) CAD (coronary artery disease): - Underwent recent cardiac cath on 06/09/[address] Christine which showed severe [place] multivessel coronary artery disease. - [address] - Continue to maximize antianginal therapy, recently had nitro patch dose increased as pt was occasionally forgeting morning oral anti-anginal meds - No repeat echo indicated at this time, continue to monitor as outpatient. - Continue Ranexa, plavix, asa 81 mg, and atorvastatin, nitro tabs prn. - Pt without any cardiac/respiratory complaints currently. (11) Aortic stenosis: - Noted, stable. 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 This has resolved. Present on Admission?: Yes (21) Non-ST elevation (NSTEMI) myocardial infarction: Trop peaked above 25. Patient is on IV heparin. will monitor. Will stop if ok by cardio. D/W Dr. Christine at 19:20, he states it is ok to stop heparin. Will continue medical management. Spent 35 minutes in management of patient Subjective Patient reports feeling better today. He has no new complaints. He denies any episodes of chest pain today. As per nurse, patient has been having some hematuria this afternoon and has vinny having elevated heparin times. Constitutional: no fever, no sweats and no body aches Eyes: no blind spots Ear, Nose, Mouth, Throat: no ear pain and no foul smell Respiratory: no pain on inspiration Cardiovascular: + chest pain Additional Comments: yesterday, he had an episode. He has chronic angina. Gastrointestinal: no abdominal pain and no early satiety Genitourinary (Male): + hematuria (from today (heparin)) Musculoskeletal: no myalgia Integumentary: no lesions Neurologic: no loss of sensation and no paresthesia Psychiatric: no panic attacks, no difficulty concentrating and no paranoia Endocrine: no polyphagia and no heat intolerance Physical Exam Vital Signs (Past 24 Hours): Last Vital Signs Temp 36.7 C 06/23/18 19:03 Pulse 51 L 06/23/18 19:03 Resp 18 06/23/18 19:03 BP 110/65 06/23/18 19:03 Pulse Ox 99 04/10/19 19:03 Physical Exam: General: awake, alert, no apparent distress. Head: Normocephalic, atraumatic ENT: PERRL, EOMI, no pharyngeal exudate, mucous membranes moist Chest: Clear to auscultation, on room air, no adventitious breath sounds Cardiac: RRR no JVD, normal peripheral pulses, good capillary refill Abdominal: NABS x 4 quadrants, soft, nontender to palpation, no rebound, guarding or tenderness. Urinary catheter in place drainingREDDISH URINE.. Extremities: Normal inspection, no peripheral edema or erythema, calfs nontender to palpation Psych: Normal mood and affect Neuro: AAO x 3, no motor deficits, speech is clear, no peripheral sensory deficits (1) CAD (coronary artery disease) Associated angina: with unstable angina Coronary Disease-Associated Artery/Lesion type: [place] artery [place] vs. transplanted heart: [place] heart Qualified Code(s): I25.110 - Atherosclerotic heart disease of [place] coronary artery with unstable angina pectoris (2) AAA (abdominal aortic aneurysm) Presence of rupture: without rupture Qualified Code(s): I71.4 - Abdominal aortic aneurysm, without rupture (3) Aortic stenosis Cardiac valve disease etiology: etiology unspecified Qualified Code(s): I35.0 - Nonrheumatic aortic (valve) stenosis (4) HLD (hyperlipidemia) Hyperlipidemia type: pure hypercholesterolemia Qualified Code(s): E78.00 - Pure hypercholesterolemia, unspecified; E78.0 - Pure hypercholesterolemia (5) Hypothermia Encounter type: initial encounter Qualified Code(s): T68.XXXA - Hypothermia, initial encounter (6) Altered mental status Altered mental status type: unspecified Qualified Code(s): R41.82 - Altered mental status, unspecified
--- NOTE | 2018-06-24 01:49 | Progress Note ---
Date of Service June 24, 2018 Assessment & Plan (1) Chest pain: Called to assess chest pain S: - 05/23 substernal pressure, at rest, relieved with nitro - Reports pain feels similar to baseline angina - Reviewed history--CABG x 5, NSTEMI O: Runs kristen, but stable. Pressures stable but on the low side following nitro, but improved shortly after No new changes identified on EKG A: Angina sx P: Follow BP, HR EKG for CP Chest pain type: unspecified Qualified Code(s): R07.9 - Chest pain, unspecified Physical Exam Vital Signs (Past 24 Hours): Last Vital Signs Temp 36.7 C 06/23/18 23:56 Pulse 58 L 06/24/18 01:19 Resp 20 06/23/18 23:56 BP 85/46 L 06/24/18 01:19 Pulse Ox 96 06/23/18 23:56
[2018-06-24] MEDS: D5W AND 1/2NSS 1,000 ML IV SCH ×2 (04:10→11:42)
[2018-06-24 06:37] LABS: Hematocrit (blood only) 30.7 % (42-52); Hemoglobin 10.5 g/dL (14.0-18.0); Mean Corpuscular Hgb Conc 34.2 g/dL (32-36); Mean Platelet Volume 9.5 fL (7.4-10.4); Platelet Count 200 K/uL (130-400); RDW Coefficient of Variation 14.6 % (11.5-14.5); RDW Standard Deviation 45.6 fL (36.4-46.3); Red Blood Count 3.57 M/uL (4.7-6.1); White Blood Count 8.35 K/uL (4.8-10.8)
[2018-06-24 07:13] LABS: Albumin Level 2.7 gm/dl (3.4-5.0); BUN Creatinine Ratio 11.1 (10-20); Calcium 8.2 mg/dl (8.5-10.1); Creatinine Clr Calc Pharmacy 47.2 ml/min; Est GFR (African American) 54.9; Est GFR (Non-African American) 47.4; Potassium 4.3 mmol/L (3.5-5.1)
[2018-06-24 07:17] LABS: Albumin Globulin Ratio 0.8 (0.9-2); Bilirubin,Total 1.3 mg/dl (0.2-1); Globulin 3.2 gm/dl (2.5-4.0); Total Protein 5.9 gm/dl (6.4-8.2)
[2018-06-24] MEDS ORDERED: COUGH DROP (SUGAR FREE) LOZ 24 LOZ/1 BOX BUCCAL ONE (07:19)
[2018-06-24] MEDS ORDERED: Nursing to Pharmacy Communication ONE ×2 (07:27→17:45)
[2018-06-24] MEDS ORDERED: COUGH DROP (SUGAR FREE) LOZ 24 LOZ/1 BOX BUCCAL PRN (07:39)
[2018-06-24] MEDS: CHOLECALCIFEROL 1,000 UNITS TAB PO SCH (08:18)
[2018-06-24] MEDS: CLOPIDOGREL BISULFATE 75 MG TAB PO SCH (08:18)
[2018-06-24] MEDS: DONEPEZIL HCL 10 MG TAB PO SCH (08:22)
[2018-06-24] MEDS: PANTOprazole 40 MG TAB PO SCH (08:22)
[2018-06-24] MEDS: CYANOCOBALAMIN 500 MCG TABLET (VITAMIN B-12) PO SCH (08:22)
[2018-06-24] MEDS: RANOLAZINE 500 MG ER TAB PO SCH ×2 (08:23→20:30)
[2018-06-24] MEDS: ASPIRIN 81 MG ECTAB PO SCH (08:23)
[2018-06-24] MEDS: FAMOTIDINE 20 MG TAB PO SCH ×2 (08:24→20:30)
[2018-06-24] MEDS: INSULIN ASPART 100 UNITS/ML 3 ML PEN SC SCH ×4 (08:26→20:29)
[2018-06-24] MEDS: METOPROLOL TARTRATE 50 MG TAB PO SCH (08:34)
--- NOTE | 2018-06-24 13:07 | Cardiology Progress Note ---
Date of Service June 24, 2018 Assessment & Plan (1) Non-ST elevation (NSTEMI) myocardial infarction: He did not present with acute coronary syndrome, but troponins peaked at 29 in the setting altered mental status, hypoglycemia, and hypothermia. Continue medical therapy. Consideration for PCI for refractory angina or hemodynamic instability given complex, severe underlying CAD. Continue aspirin, Plavix, high-intensity statin therapy, and beta-ross if tolerated. No indication for urgent cardiac catheterization at this time. (2) Aortic stenosis: Non severe. This is being managed by Dr. Christine and can be followed as an outpatient. (3) Ischemic cardiomyopathy: Mildly reduced LV systolic function, which Appears stable. Likely secondary to his multivessel CAD. Continue medical therapy. He appears euvolemic. (4) CAD (coronary artery disease): He has multivessel CAD status post CABG x5 with CAD involving bypass grafts. No angina. Continue medical therapy as above. He has been bradycardic despite no beta-ross for over 24 hours. Reduce metoprolol to 25 mg twice daily and hold for systolic blood pressure less than 100 or heart rate less than 50. He uses a nitroglycerin patch at home as well for symptoms. Complex PCI considered by Dr. Christine if he should have refractory symptoms in the future. He has not exhibited anginal symptoms at this point on current regimen. Continue high-intensity statin therapy. (5) Bradycardia: He has not received a dose of metoprolol since yesterday morning due to hold parameters. Reduce metoprolol to 25 mg twice daily. He has been receiving 50 mg once daily on average given held doses. Heart rate in the 40s to 50s at rest are okay as long as he is asymptomatic and has appropriate chronotropic response with exertion. (6) HTN (hypertension), benign: Blood pressure normotensive and at times mildly hypotensive. Adjusting beta-ross dose as above. He has been receiving approximately 50 mg once daily as other doses have been held due to bradycardia. Disposition: Please call with any other questions or concerns. Follow-up with Dr. Christine as an outpatient. Subjective He denies shortness of breath, chest pain, syncope, near-syncope, palpitations, or edema. He has no complaints. In regards to metoprolol, he has been ordered a total of 5 doses thus far and received only 2 of those doses, the most recent being yesterday morning. He has not had his last 2 doses that were scheduled secondary to bradycardia with heart rates in the 40s to 50s. Review of systems: As above. Physical Exam Vital Signs (Past 24 Hours): Last Vital Signs Temp 36.4 C L 06/24/18 12:20 Pulse 48 L 06/24/18 12:20 Resp 18 06/24/18 12:20 BP 112/57 L 06/24/18 12:20 Pulse Ox 95 06/24/18 12:20 Physical Exam: Gen.: No acute distress. Alert. HEENT: Anicteric sclera. Neck: No appreciable JVD. Cardiac: Regular. Normal S1-S2. 3/6 mid-peaking systolic ejection murmur best heard at the right upper sternal border. No rubs, or gallops. Pulmonary: Clear to auscultation bilaterally without wheezes, rales, or rhonchi. Abdomen: Soft, nontender, nondistended, with normoactive bowel sounds. No bruits noted. Extremities: No edema or cyanosis. Psychiatric: Affect appears appropriate. Results & Data Laboratory Results Laboratory Results - last 24 hr 06/23/18 06/23/18 06/23/18 16:19 16:40 20:13 WBC RBC Hgb Hct MCV MCH MCHC RDW Std Deviation RDW Coeff of Sandra Plt Count MPV APTT 128.3 H* PTT Ratio 4.7 Sodium Potassium Chloride Carbon Dioxide Anion Gap BUN Creatinine Est Cr Clr Drug Dosing Est GFR ( Amer) Est GFR (Non-Af Amer) BUN/Creatinine Ratio Glucose POC Glucose 123 H 149 H Calcium Total Bilirubin AST ALT Alkaline Phosphatase Troponin I Total Protein Albumin Globulin Albumin/Globulin Ratio Lipase 06/24/18 06/24/18 06/24/18 00:11 04:08 06:20 WBC 8.35 RBC 3.57 L Hgb 10.5 L Hct 30.7 L MCV 86.0 MCH 29.4 MCHC 34.2 RDW Std Deviation 45.6 RDW Coeff of Sandra 14.6 H Plt Count 200 MPV 9.5 APTT PTT Ratio Sodium Potassium Chloride Carbon Dioxide Anion Gap BUN Creatinine Est Cr Clr Drug Dosing Est GFR ( Amer) Est GFR (Non-Af Amer) BUN/Creatinine Ratio Glucose POC Glucose 136 H 146 H Calcium Total Bilirubin AST ALT Alkaline Phosphatase Troponin I Total Protein Albumin Globulin Albumin/Globulin Ratio Lipase 06/24/18 06/24/18 06/24/18 06:20 06:20 07:12 WBC RBC Hgb Hct MCV MCH MCHC RDW Std Deviation RDW Coeff of Sandra Plt Count MPV APTT PTT Ratio Sodium 134 L Potassium 4.3 Chloride 105 Carbon Dioxide 25 Anion Gap 4.0 BUN 15 Creatinine 1.37 Est Cr Clr Drug Dosing 47.2 Est GFR ( Amer) 54.9 Est GFR (Non-Af Amer) 47.4 BUN/Creatinine Ratio 11.1 Glucose 124 H POC Glucose 137 H Calcium 8.2 L Total Bilirubin 1.3 H AST 32 ALT 16 Alkaline Phosphatase 60 Troponin I 3.680 H* Total Protein 5.9 L Albumin 2.7 L Globulin 3.2 Albumin/Globulin Ratio 0.8 L Lipase 171 06/24/18 06/24/18 11:10 12:14 WBC RBC Hgb Hct MCV MCH MCHC RDW Std Deviation RDW Coeff of Sandra Plt Count MPV APTT PTT Ratio Sodium Potassium Chloride Carbon Dioxide Anion Gap BUN Creatinine Est Cr Clr Drug Dosing Est GFR ( Amer) Est GFR (Non-Af Amer) BUN/Creatinine Ratio Glucose POC Glucose 85 96 Calcium Total Bilirubin AST ALT Alkaline Phosphatase Troponin I Total Protein Albumin Globulin Albumin/Globulin Ratio Lipase Diagnostic Findings Telemetry personally reviewed: Sinus bradycardia in the 40s to 50s. No arrhythmia. Medications Administered Current Inpatient Medications Acetaminophen (Tylenol) 650 mg PO Q4H PRN PRN Reason: Moderate Pain Stop: 07/22/18 08:14 Aspirin (Ecotrin Ectab) 81 mg PO DAILY DAY[facility] Stop: 07/22/18 08:59 Last Admin: 06/24/18 08:23 Dose: 81 mg Documented by: Atorvastatin Calcium (Lipitor) 40 mg PO HS [facility] Stop: 07/22/18 20:59 Last Admin: 06/23/18 20:29 Dose: 40 mg Documented by: Clopidogrel Bisulfate (Plavix) 75 mg PO DAILY DAY[facility] Stop: 07/22/18 08:59 Last Admin: 06/24/18 08:18 Dose: 75 mg Documented by: Cyanocobalamin (Vitamin B-12) 1,000 mcg PO DAILY [facility] Stop: 07/22/18 08:59 Last Admin: 06/24/18 08:22 Dose: 1,000 mcg Documented by: Dextrose (Dextrose 50%) 25 - 50 ml IV UD PRN; Protocol PRN Reason: Hypoglycemia Protocol Stop: 07/22/18 08:14 Donepezil HCl (Aricept) 10 mg PO DAILY [facility] Stop: 07/22/18 08:59 Last Admin: 06/24/18 08:22 Dose: 10 mg Documented by: Famotidine (Pepcid) 20 mg PO BID [facility] Stop: 07/22/18 08:59 Last Admin: 06/24/18 08:24 Dose: 20 mg Documented by: Glucagon (Glucagen) 1 mg SQ UD PRN; Protocol PRN Reason: Hypoglycemia Protocol Stop: 07/22/18 08:14 Glucose (Glucose 40%) 15 - 30 gm PO UD PRN; Protocol PRN Reason: Hypoglycemia Protocol Stop: 07/22/18 08:14 Glucose (Dex4 Glucose) 4 - 8 tabs PO UD PRN; Protocol PRN Reason: Hypoglycemia Protocol Stop: 07/22/18 08:14 Dextrose/Sodium Chloride (D5w And 1/2nss) 1,000 mls @ 125 mls/hr IV .Q8H [facility] Stop: 07/22/18 07:14 Last Admin: 06/24/18 11:42 Dose: 125 mls/hr Documented by: Insulin Aspart (Novolog Flexpen) 0 units SC ACHS [facility] Stop: 07/22/18 11:29 Last Admin: 06/24/18 11:58 Dose: Not Given Documented by: Menthol (Nice) 1 wily BUCCAL PRN PRN PRN Reason: Cough Stop: 07/24/18 07:38 Metoprolol Tartrate (Lopressor) 25 mg PO BID [facility] Stop: 07/24/18 20:59 Miscellaneous (Carbohydrates For Hypoglycemia) 15 - 30 gm PO UD PRN PRN Reason: Hypoglycemia Treatment Stop: 07/22/18 08:14 Nitroglycerin (Nitrostat) 0.4 mg SL UD PRN PRN Reason: Chest Pain Stop: 07/22/18 08:19 Last Admin: 06/24/18 01:13 Dose: 0.4 mg Documented by: Ondansetron HCl (Zofran) 4 mg IV Q4H PRN PRN Reason: Nausea And Vomiting Stop: 07/22/18 08:14 Last Admin: 06/24/18 12:05 Dose: 4 mg Documented by: Pantoprazole Sodium (Protonix) 40 mg PO DAILY [facility] Stop: 07/22/18 08:59 Last Admin: 06/24/18 08:22 Dose: 40 mg Documented by: Ranolazine (Ranexa) 1,000 mg PO Q12 [facility] Stop: 07/22/18 08:59 Last Admin: 06/24/18 08:23 Dose: 1,000 mg Documented by: Vitamin D (Vitamin D3) 1,000 units PO DAILY [facility] Stop: 07/22/18 08:59 Last Admin: 06/24/18 08:18 Dose: 1,000 units Documented by: (1) Aortic stenosis Cardiac valve disease etiology: etiology unspecified Qualified Code(s): I35.0 - Nonrheumatic aortic (valve) stenosis (2) CAD (coronary artery disease) Coronary Disease-Associated Artery/Lesion type: [place] artery [place] vs. tr ansplanted heart: [place] heart Associated angina: with unstable angina Qualified Code(s): I25.110 - Atherosclerotic heart disease of [place] coronary artery with unstable angina pectoris
[2018-06-24] MEDS: ATORVASTATIN 40 MG TAB PO SCH (20:29)
[2018-06-24] MEDS: METOPROLOL TARTRATE 25 MG TAB PO SCH (20:29)
--- NOTE | 2018-06-24 22:33 | Hospitalist Progress Note ---
Date of Service June 24, 2018 Assessment & Plan (1) Non-ST elevation (NSTEMI) myocardial infarction: Trop peaked above 25. Stopped IV heparin Appreciate input from CARDIO. Consideration for PCI for refractory angina or hemodynamic instability given complex, severe underlying CAD. Continue aspirin, Plavix, high-intensity statin therapy, and beta-ross if tolerated. Repeated trop, has decreased to 3. (2) DM II (diabetes mellitus, type II), controlled: (3) Hypoglycemia: Resolved. (4) Hypothermia: resolved. (5) Altered mental status: As above (6) Acute kidney injury: - Cr. elevated at 1.73 on admision ,improved to 1.49 - IVFs given in ER, likely to help renal function. Avoid other nephrotoxins and renally dose medications. (7) CKD (chronic kidney disease), stage III: - Slightly elevated compared to baseline. As noted above. - Hold nephrotoxins and renally dose appropriate medications. (8) Elevated lipase: - No abdominal pain, will trend am lipase. - Allow diet for now with significant hypoglycemia as above. - Consider further pancreatic imaging with abd CT if other changes in lipase levels or concern for other pancreatic involvement with causing hypoglycemia if medication cause is ruled out. (9) Systolic and diastolic CHF, chronic: - EF of 45-50% as per Echo in Jan 2018 - Appears to be euvolemic currently, monitor volume status with IVFs from the er. - Daily weights, strict I/Os, HH diet - Follows with cardiology, Dr. Christine as outpatient, has ECHO [id number] as outpatient for followup. (10) History of quadruple bypass: (11) CAD (coronary artery disease): - Underwent recent cardiac cath on 06/09/[address] Christine which showed severe [place] multivessel coronary artery disease. - [address] - Continue to maximize antianginal therapy, recently had nitro patch dose increased as pt was occasionally forgeting morning oral anti-anginal meds - No repeat echo indicated at this time, continue to monitor as outpatient. - Continue Ranexa, plavix, asa 81 mg, and atorvastatin, nitro tabs prn. - Pt without any cardiac/respiratory complaints currently. (12) Aortic stenosis: - Noted, stable. 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 This has resolved. Spent 35 minutes in management of patient Updated , will hold discharge as patient is fatigued today and complaining of chest pain. Subjective Patient reports having no new symptoms. He denies chest pain, nausea, vomiting. Nurse states though that he has been more fatigued today and did complain of an episode of pressure like chest pain earlier (however he does have chronic angina) Cardiovascular: + chest pain Genitourinary (Male): + hematuria (from today (heparin)) Physical Exam Vital Signs (Past 24 Hours): Last Vital Signs Temp 36.6 C 06/24/18 19:41 Pulse 46 L 06/24/18 19:41 Resp 18 06/24/18 19:41 BP 125/79 06/24/18 19:41 Pulse Ox 98 06/24/18 19:41 Physical Exam: General: awake, alert, no apparent distress. Head: Normocephalic, atraumatic ENT: PERRL, EOMI, no pharyngeal exudate, mucous membranes moist Chest: Clear to auscultation, on room air, no adventitious breath sounds Cardiac: RRR no JVD, normal peripheral pulses, good capillary refill Abdominal: NABS x 4 quadrants, soft, nontender to palpation, no rebound, gua rding or tenderness. Urinary catheter in place draining yellow urine. Extremities: Normal inspection, no peripheral edema or erythema, calfs nontender to palpation Psych: Normal mood and affect Neuro: AAO x 3, no motor deficits, speech is clear, no peripheral sensory deficits (1) CAD (coronary artery disease) Associated angina: with unstable angina Coronary Disease-Associated Artery/Lesion type: [place] artery [place] vs. transplanted heart: [place] heart Qualified Code(s): I25.110 - Atherosclerotic heart disease of [place] coronary artery with unstable angina pectoris (2) AAA (abdominal aortic aneurysm) Presence of rupture: without rupture Qualified Code(s): I71.4 - Abdominal aortic aneurysm, without rupture (3) Aortic stenosis Cardiac valve disease etiology: etiology unspecified Qualified Code(s): I35.0 - Nonrheumatic aortic (valve) stenosis (4) HLD (hyperlipidemia) Hyperlipidemia type: pure hypercholesterolemia Qualified Code(s): E78.00 - Pure hypercholesterolemia, unspecified; E78.0 - Pure hypercholesterolemia (5) Hypothermia Encounter type: initial encounter Qualified Code(s): T68.XXXA - Hypothermia, initial encounter (6) Altered mental status Altered mental status type: unspecified Qualified Code(s): R41.82 - Altered mental status, unspecified
[2018-06-25 06:07] LABS: Hematocrit (blood only) 32.3 % (42-52); Mean Corpuscular Hgb Conc 34.1 g/dL (32-36); Mean Corpuscular Volume 87.5 fL (80-100); Mean Platelet Volume 10.3 fL (7.4-10.4); Platelet Count 222 K/uL (130-400); RDW Coefficient of Variation 14.5 % (11.5-14.5); RDW Standard Deviation 46.1 fL (36.4-46.3); Red Blood Count 3.69 M/uL (4.7-6.1); White Blood Count 9.95 K/uL (4.8-10.8)
[2018-06-25 06:40] LABS: Albumin Level 2.9 gm/dl (3.4-5.0); BUN Creatinine Ratio 11.1 (10-20); Calcium 8.6 mg/dl (8.5-10.1); Creatinine Clr Calc Pharmacy 45.4 ml/min; Est GFR (African American) 53.5; Est GFR (Non-African American) 46.1; Potassium 4.5 mmol/L (3.5-5.1)
[2018-06-25 06:43] LABS: Albumin Globulin Ratio 0.9 (0.9-2); Bilirubin,Total 1.3 mg/dl (0.2-1); Globulin 3.3 gm/dl (2.5-4.0); Total Protein 6.2 gm/dl (6.4-8.2)
[2018-06-25] MEDS: RANOLAZINE 500 MG ER TAB PO SCH (07:37)
[2018-06-25] MEDS: CHOLECALCIFEROL 1,000 UNITS TAB PO SCH (07:37)
[2018-06-25] MEDS: ASPIRIN 81 MG ECTAB PO SCH (07:38)
[2018-06-25] MEDS: CYANOCOBALAMIN 500 MCG TABLET (VITAMIN B-12) PO SCH (07:38)
[2018-06-25] MEDS: DONEPEZIL HCL 10 MG TAB PO SCH (07:38)
[2018-06-25] MEDS: CLOPIDOGREL BISULFATE 75 MG TAB PO SCH (07:38)
[2018-06-25] MEDS: FAMOTIDINE 20 MG TAB PO SCH (07:38)
[2018-06-25] MEDS: PANTOprazole 40 MG TAB PO SCH (07:38)
[2018-06-25] MEDS: METOPROLOL TARTRATE 25 MG TAB PO SCH (07:39)
[2018-06-25] MEDS: INSULIN ASPART 100 UNITS/ML 3 ML PEN SC SCH ×3 (07:40→17:08)
--- NOTE | 2018-06-29 10:47 | Coding Query ---
PRESENT ON ADMISSION QUERY To promote full compliance with coding requirements relating to pateint care, physician participation is requested in all cases of huc ob uncertainty. Please assist us with the question(s) below: Please place an X within the parenthesis (x). The following diagnosis(es) listed in this patient's medical record require physician assistance to determine if they were present on admission (POA) or not. Please advise for each diagnosis whether it was present on admission, not present on admission, or if it was clinically undetermined. 1. Non-ST elevation (NSTEMI) myocardial infarction (documented beginning with Cardiology Consultation on 06/22/18 through Discharge Summary) ( x) Present On Admission ( ) Not Present On Admission ( ) Clinically Undetermined Thank you Diana Maloney *Definition of the present on admission (POA)-Present on admission is defined as present at the time the order for inpatient admission occurs. Conditions that develop during an outpatient encounter prior to a written order for inpatient admission (including emergency department, observation, or outpatient surgery) are considered present on admission. CLAUDIOD
--- NOTE | 2018-07-04 11:37 | Discharge Summary ---
Date of Service June 25, 2018 Admission HPI Per Admitting Provider This is am 82 yo M with PMHx of AAA 4.2x4.1 cm, diastolic and systolic CHF with moderate ventricular hypertrophy and EF of 45-50% as on Echo in Jan 2018, CAD x quadruple bypass in 1982, hx of cardiac stent x 1, HTN, HLD, aortic stenosis, PVD, DM II, GERD, anemia, KAY, mild mixed vascular and Alzheimers dementia, CKD stage III, vitamin D deficiency who presents with an acute episode of hypoglycemia, found to be hypothermic with Tmax=34.9, and elevated lipase of 712. The patient lives at home with his who is not present at bedside. The patient notes he remembers getting up and having breakfast this morning. He cannot recall any events after this. Per EMS report the patient had a BG in the mid 30s on several rechecks, despite administration of juice, cookies, and oral glucose. He was then given 1 full amp of D50 which improved glucose into the 200s for a short period of time. Upon arrival to the hospital his glucose again dropped into the mid 30s. D5W + NSS 1/2 @ 125 mL/hr was initiated in the ER. BG= 122 upon last recheck in the ER. A Bairhugger was placed on the patient and his temperature has also improved up to 35.2. He denies any acute flu-like sx, no cardiac or respiratory complaints. Pt notes he sustained a mechanical fall yesterday and that his neck is sore since then. He denies LOC, trauma or skin tear or laceration. He does not use any assistive devices for ambulation at baseline. Pt notes that he remembers taking medications last evening which would have included Levimir 40 U QPM, along with a sliding scale, although is unsure if he would have mixed up these medications and taken a wrong dose. He does manage his meds at baseline himself. Principal Diagnosis NSTEMI/ Hypoglycemia Discharge Exam General: awake, alert, no apparent distress. Head: Normocephalic, atraumatic ENT: PERRL, EOMI, no pharyngeal exudate, mucous membranes moist Chest: Clear to auscultation, on room air, no adventitious breath sounds Cardiac: RRR no JVD, normal peripheral pulses, good capillary refill Abdominal: NABS x 4 quadrants, soft, nontender to palpation, no rebound, guarding or tenderness. Urinary catheter in place draining yellow urine. Extremities: Normal inspection, no peripheral edema or erythema, calfs nontender to palpation Psych: Normal mood and affect Neuro: AAO x 3, no motor deficits, speech is clear, no peripheral sensory deficits Discharge Data Allergies Allergy/AdvReac Type Severity Reaction Status Date / Time iodine Allergy Severe Unknown Verified 06/27/18 06:42 Penicillins Allergy Severe AMOXIL = Verified 06/27/18 06:42 ANAPHYLACTIC RXN clavulanic acid Allergy Unknown Unknown Verified 06/27/18 06:42 morphine AdvReac Mild VOMITING Verified 06/27/18 06:42 Consultations 06/22/18 07:12 ED Decision to Admit Stat 06/22/18 08:17 Consult Case Management - Discharge Planning Routine 06/22/18 13:08 Consult Cardiology Routine Ordered Studies 06/22/18 04:22 CT head/brain wo con Urgent 06/22/18 04:24 CT cervical spine wo con Urgent Hospital Course (1) DM II (diabetes mellitus, type II), controlled: (2) Hypoglycemia: Resolved. Had discussion with on phone during hospital stay. Unsure what caused his blood sugar drop, either he took too much, or his JANIS on CKD played a role. His creatinine did improve. Will need to have someone administer his medicine. Will set up home health to see patient once home. Patient will also be discharged with a walker, since [facility] is not open at time of discharge, will have patient take him the walker he was using in the hospital. On day of discharge, tried calling family but no one answered. Patient was also informed of plan and was able to repeat plan to me. (3) Hypothermia: resolved. This was likely related with his hypoglycemia. (4) Altered mental status: As above (5) Acute kidney injury: - Cr. elevated at 1.73 on admision ,improved to 1.49 - IVFs given in ER, likely to help renal function. Avoid other nephrotoxins and renally dose medications. (6) CKD (chronic kidney disease), stage III: - Slightly elevated compared to baseline. As noted above. - Hold nephrotoxins and renally dose appropriate medications. (7) Elevated lipase: - No abdominal pain, will trend am lipase. - Allow diet for now with significant hypoglycemia as above. - Consider further pancreatic imaging with abd CT if other changes in lipase levels or concern for other pancreatic involvement with causing hypoglycemia if medication cause is ruled out. -Lipase improved on second day of admission and continued to be normal on rechecks. (8) Systolic and diastolic CHF, chronic: - EF of 45-50% as per Echo in Jan 2018 - Appears to be euvolemic currently, monitor volume status with IVFs from the er. - Daily weights, strict I/Os, HH diet - Follows with cardiology, Dr. Christine as outpatient, has ECHO [id number] as outpatient for followup. (9) Elevated troponin I level: - Trop 1.000, likely residual from recent cardiac cath on 06/09. Check one more set at noon. - EKG reviewed and is negative. Per nursing in ER there was possible arrhythmia on tele while at imaging, will monitor on tele. - EKG prn chest pain (10) History of quadruple bypass: (11) CAD (coronary artery disease): - Underwent recent cardiac cath on 06/09/[address] Christine which showed severe inaja multivessel coronary artery disease. - [address] - Continue to maximize antianginal therapy, recently had nitro patch dose increased as pt was occasionally forgeting morning oral anti-anginal meds - No repeat echo indicated at this time, continue to monitor as outpatient. - Continue Ranexa, plavix, asa 81 mg, and atorvastatin, nitro tabs prn. - Pt without any cardiac/respiratory complaints currently. (12) Aortic stenosis: - Noted, stable. 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 (20) DVT prophylaxis: - teds, scds, plavix Total Time Total Time Spent Total Time Spent (In Minutes): 35 Total Time Includes: Examination of the Patient, Discharge Planning and Medication Reconciliation Discharge Plan Discharge Items Patient Disposition: Home - Home Health Services Reason For Visit: HYPOGLYCEMIA, HYPOTHERMIA Discharge Diagnosis: Hypoglycemia Discharge Goals: Decrease discomfort Non-emergency contact: Primary Care Provider Call non-emergency contact if: you have any medication questions Follow-up/Referrals: Tiburcio Herrera III, MD [Primary Care Provider] - 06/30/18 3:00 pm (Please, follow up at Dr. Herrera's office with his volunteer services assistant, Pascale Jiang PA-C, on ThursdayJune 30 at 3:00 pm. *If you need to change this appointment, call the office at [phone].) Jacob Christine MD [Physician] - 07/13/18 10:00 am (Please, follow up at [facility] Cardiology Office with Dr. Fede Christine on ThursdayJuly 13 at 10:00 am. *If you need to change this appointment, call the office at [phone].) Diet: Carb Consistent or DM2 Addtl Provider Instructions: You were seen for low blood sugar. It appears this was caused by taking an additional dose of your insulin. Will need to closely monitor your blood sugar. You also had a heart attack caused by the low blood sugar and stress that was caused by this. Will continue with your current medical management. Prescriptions: Continued atorvastatin 40 mg Tablet 40 mg PO HS RF: 0 donepezil [Aricept] 10 mg Tablet 10 mg PO DAILY RF: 0 nitroglycerin [Nitrostat] 0.4 mg Tablet, Sublingual 0.4 mg Sublingual DIRECTED PRN (Reason: Chest Pain) RF: 0 ranolazine [Ranexa] 1,000 mg tablet extended release 12 hr 500 mg PO Q12 RF: 0 cyanocobalamin (vitamin B-12) [Vitamin B-12] 1,000 mcg Tablet 1,000 mcg PO DAILY RF: 0 clopidogrel 75 mg Tablet 75 mg PO DAILY RF: 0 famotidine 20 mg Tablet 20 mg PO BID RF: 0 pantoprazole 40 mg Tablet,Delayed Release (Dr/Ec) 40 mg PO DAILY RF: 0 aspirin 81 mg Tablet,Chewable 81 mg PO DAILY RF: 0 cholecalciferol (vitamin D3) [Vitamin D3] 1,000 unit Capsule 1,000 unit PO DAILY RF: 0 No Action nitroglycerin [Nitro-Dur] 0.6 mg/hr Patch 24 Hour 1 patch TRANSDERMAL ONAMOFFPM RF: 0 metoprolol succinate 25 mg tablet extended release 24 hr 12.5 mg PO DAILY Qty: 30 RF: 2 walker misc .ROUTE .MEDSUPPLY Qty: 1 RF: 0 Stand-Alone Forms: [facility] Discharge Orders: Discharge Order (Routine); Ordered 06/25/18 Ordered By: Clint Martinez Admission Data Admit Date/Time: 06/22/18 08:16 Attending Provider: Clint Martinez Admit Provider: Clint Martinez Primary Care Provider: Tiburcio Herrera III Other Providers: Drew Monae Service: Telemetry Other Interventions: Discharge Summary Assessment (RN) Last Done: 06/25/18 17:09 DC Date/Time DO NOT enter until pt leaves facility: 06/25/18 18:15
== END 2018-06-25 18:15 | disposition home health service (06) | DRG 280 ==
LOC: ED 04:11 → 2S 08:16

== ENCOUNTER 2018-07-20 12:32 | Inpatient (IN) ==
[2018-07-20] MEDS ORDERED: SODIUM CHLORIDE 0.9% 1000ML 2,000 ML IV ONE (12:58)
--- NOTE | 2018-07-20 13:17 | XRay Report ---
XR chest 1V portable CLINICAL HISTORY: Sepsis COMPARISON STUDY: 06/28/2018 FINDINGS: There are postsurgical changes of midline sternotomy. There is no focal pulmonary consolida tion. There is been near complete resolution of the previous described pleural effusions.[ There are persistent left basilar opacities statistically atelectatic although an infectious/inflammatory proce ss could potentially appear similar. IMPRESSION: 1. Near complete interval resolution of the previous identified pleural effusions 2. No current evidence of failure 3. Left basilar opacities statistically atelectatic Electronically signed by: Hermelindo Maravilla M.D. 07/20/2018 1:16 PM
[2018-07-20 13:53] LABS: INR 1.1 (0.9-1.1); Partial Thromboplastin Ratio 1.1; Partial Thromboplastin Time 30.3 Seconds (21.0-31.0)
[2018-07-20 13:58] LABS: Albumin Level 3.4 gm/dl (3.4-5.0); BUN Creatinine Ratio 17.9 (10-20); Calcium 9.1 mg/dl (8.5-10.1); Creatinine Clr Calc Pharmacy 37.7 ml/min; Est GFR (African American) 46.2; Est GFR (Non-African American) 39.9; Potassium 3.6 mmol/L (3.5-5.1)
[2018-07-20 14:00] LABS: Albumin Globulin Ratio 0.8 (0.9-2); Bilirubin,Total 2.2 mg/dl (0.2-1); Total Protein 7.4 gm/dl (6.4-8.2)
[2018-07-20 14:10] LABS: Basophils # (auto) 0.02 K/uL (0-0.2); Basophils % (auto) 0.3 %; Eosinophils # (auto) 0.04 K/uL (0-0.5); Eosinophils % (auto) 0.5 %; Hematocrit (blood only) 35.4 % (42-52); Hemoglobin 12.2 g/dL (14.0-18.0); Immature Granulocytes # (auto) 0.02 K/uL (0.00-0.02); Immature Granulocytes % (auto) 0.3 %; Lymphocytes # (auto) 1.46 K/uL (1.2-3.4); Lymphocytes % (auto) 19.9 %; Mean Corpuscular Hgb Conc 34.5 g/dL (32-36); Mean Corpuscular Volume 84.7 fL (80-100); Mean Platelet Volume 10.4 fL (7.4-10.4); Monocytes # (auto) 0.71 K/uL (0.11-0.59); Monocytes % (auto) 9.7 %; Neutrophils # (auto) 5.08 K/uL (1.4-6.5); Neutrophils % (auto) 69.3 %; Platelet Count 265 K/uL (130-400); RDW Coefficient of Variation 14.6 % (11.5-14.5); Red Blood Count 4.18 M/uL (4.7-6.1); White Blood Count 7.33 K/uL (4.8-10.8)
[2018-07-20 15:02] LABS: Appearance Urine Clear (Clear); Bilirubin Urine Negative (Negative); Color Urine Yellow; Glucose Urine UA Negative (Negative); Ketones Urine Trace (Negative); Leukocyte Esterase Urine Negative (Negative); Nitrite Urine Negative (Negative); Protein Urine Negative (Negative); Specific Gravity Urine 1.018 (1.000-1.030); Urobilinogen Urine Negative (Negative)
--- NOTE | 2018-07-20 15:15 | CT Scan Report ---
CT SCAN OF THE BRAIN WITHOUT IV CONTRAST CLINICAL HISTORY: Trauma. Fall. COMPARISON STUDY: CT of the brain dated 06/27/2018. TECHNIQUE: Unenhanced axial CT scan of the brain is performed from the vertex to the skull base. A do se lowering technique was utilized adhering to the principles of ALARA. FINDINGS: Brain parenchyma: There are age-related involutional changes noting mild subcortical and periventric ular microangiopathic change. There is no hemorrhage, mass effect, or evidence of acute territorial i schemia by CT criteria. Peterson-white matter differentiation is preserved. No extra-axial fluid collecti on is seen. Ventricles, sulci, cisterns: Prominent secondary to involutional change. Intracranial vasculature: There is atherosclerotic calcification of the cavernous carotid and vertebr al arteries. Calvarium: The skeletal structures are osteopenic. No depressed calvarial fracture is seen. Sinuses and mastoids: There is subtotal opacification of the ethmoid sinuses. Air-fluid levels are no sukhdev in the maxillary antra. Mild mucosal thickening is seen in the frontal and sphenoid sinuses. Ther e our trace mastoid effusions. Orbits: The bony orbits are grossly intact. There are bilateral ocular lens implants. IMPRESSION: 1. There is no hemorrhage, mass effect, or evidence of acute territorial ischemia by CT criteria. 2. Findings of pansinusitis as above. Electronically signed by: Glenn Pena M.D. 07/20/2018 3:13 PM
--- NOTE | 2018-07-20 15:18 | CT Scan Report ---
CT SCAN OF THE CERVICAL SPINE CLINICAL HISTORY: Trauma. Fall. COMPARISON STUDY: CT scan of the cervical spine dated 06/22/2018. TECHNIQUE: CT scan of the cervical spine is performed from the skull base to the upper thoracic spine . Images are reviewed in the axial, sagittal, and coronal planes. IV contrast was not administered fo r this examination. A dose lowering technique was utilized adhering to the principles of ALARA. CT DOSE: 970.88 mGy.cm FINDINGS: Skeletal structures: The skeletal structures are osteopenic. There is no evidence of fracture or subl uxation involving the cervical spine. Vertebral body height and alignment are maintained. Anterior os teophytes are noted in the lower cervical region. The odontoid process and lateral masses are intact . The atlantoaxial articulation is preserved noting productive degenerative change. The spinous proce sses appear intact. There is moderate multilevel cervical spondylosis. Uncovertebral and facet arthro nicole contribute to neural foraminal stenosis at several levels. Intervertebral discs: There is moderate to advanced disc space narrowing at C6-C7. Mild disc space na rrowing is seen at C5-C6. Central canal: A large posterior disc osteophyte complex at C6-C7 likely contribute to acquired compr omise of the central canal. Soft tissues: The prevertebral and paraspinous soft tissues are within normal limits. Atherosclerotic calcification is noted in the carotid bulbs. Calvarium: The visualized calvarium at the skull base appears intact. Brain parenchyma: Partially visualized brain parenchyma the skull base is within normal limits. Sinuses and mastoids: There are air-fluid levels within the maxillary antra. Mucosal thickening is se en in the sphenoid sinuses. There are trace mastoid effusions. Lung apices: Clear as visualized. IMPRESSION: 1. There is no evidence of fracture or subluxation involving the cervical spine. 2. Osteopenia and spondylotic change as above. Electronically signed by: Glenn Pena M.D. 07/20/2018 3:17 PM
[2018-07-20] MEDS ORDERED: cefTRIAXone SODIUM 1,000 MG/50 ML BAG IV STA (15:31)
[2018-07-20 15:36] LABS: iSTAT Hemoglobin 9.9 g/dl (14.0-18.0); iSTAT Ionized Calcium 1.1 mmol/l (1.12-1.32)
[2018-07-20] MEDS ORDERED: LEVOFLOXACIN/D5W 750 MG/150 ML BAG IV SCH (15:45)
--- NOTE | 2018-07-20 16:36 | History & Physical Report ---
Date of Service July 20, 2018 Assessment & Plan (1) Hypotension: - BP has been low since presenting to ED -- possibly related to dehydration vs. medication induced vs. sepsis vs. other. Low blood pressures are likely the cause of his recent falls prior to admission - Received 2L NS in ER; will continue NS at 100 cc/hr and monitor volume status closely. - Lactic acid level was WNL; U/a negative, BC are pending. - Influenza by PCR is negative - CXR showed ?pneumonia -- will continue Levaquin 750 mg q48hr for empiric coverage. CT of the head showed pansinusitis-Levaquin will cover for this as well in case it is bacterial - Cardiac history -- will trend troponin q6hr; EKG negative for acute changes. - Will hold home Metoprolol and Nitroglycerin patch. (2) Cervical spine disease: - CT C-spine showed large posterior disc osteophyte complex at C6-C7 likely contributing to compromise of central canal. Question if this could be contributing to his recent falls - Will obtain MRI of C-spine. - Ortho spine consulted. (3) Recurrent falls: - Pt. cannot provide clear history regarding falls. Could be secondary to hypotension versus cervical spine issue - CT head was negative; consulting ortho for C-spine findings. - PT/OT ordered -- will likely benefit from rehab. (4) Altered mental status: - May be related to underlying infection (?PNA) vs other. - Will continue to monitor; infectious work up and treatment of hypotension as noted above. (5) CAD (coronary artery disease): - S/p CABG x 4 and subsequent stents; also had recent NSTEMI this spring. - S/p cardiac cath on 06/09, showed severe multivessel CAD but opted for medical management. - EKG at admission neg for acute changes; trending Trop q6hr. - Continue aspirin, plavix, statin and ranexa. - Holding Metoprolol and Nitro patch in setting of hypotension. (6) HLD (hyperlipidemia): - Continue statin as prescribed. (7) DM II (diabetes mellitus, type II), controlled: - Has been recently admitted for hypoglycemia following accidental insulin overdose at home. - Most recent A1C was 6.1 in June 2018. - Gluc checks ac/hs; holding SSI coverage.' (8) Aortic stenosis: - Moderate on recent cardiac cath. (9) AAA (abdominal aortic aneurysm): - Currently stable, was 4.4 x 4.1 cm on most recent imaging. - Follow as outpatient. (10) KAY (obstructive sleep apnea): - Does not use CPAP at home. (11) CKD (chronic kidney disease), stage III: - Renally dose all meds. 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 - Monitor I/O's and daily weights. - Receiving IV fluids at 100 cc/hr due to hypotension. - Holding Metoprolol due to hypotension. (13) Anemia: - Monitor CBC qAM; transfuse for hgb <8 due to cardiac history. - Recent iron studies were c/w anemia of chronic disease. (14) Dementia: - Continue home Aricept as prescribed. (15) Vitamin D deficiency: - Holding home Vit D supplementation. (16) GERD (gastroesophageal reflux disease): - Continue home PPI. (17) DVT prophylaxis: - Heparin 5,000 units subQ q12hr. Dispo: PCU/tele for evaluation of hypotension. History of Present Illness Chief Complaint: Falls, Hypotension, URI symptoms Primary Care Provider: Tiburcio Herrera MD Mr. Alegria is a 82 year old male with past medical history of AAA, chronic combined heart failure, CAD, HTN, HLD, aortic stenosis, PVD, Type II DM, GERD, Anemia, KAY, Vascular and Alzheimer's Dementia, Stage III CKD, Vit D deficiency who presented with recurrent falls at home and URI symptoms. Pt. had been admitted multiple occasions over the last 2 months for cardiac issues along with hypoglycemic episodes. He was most recently admitted 06/27-07/02 for hypoglycemia; he was instructed to discontinue insulin at home. Pt. presented to the ER today; limited history was obtained due to confusion/lethargy. He reports having a cou gh, denies sputum production, chest pain, SOB, myalgias, fever/chills. Denies nausea/vomiting, diarrhea or constipation, dysuria. He also reports falling frequently at home but cannot recall the last time he fell. He lives with his ; his son lives in an apartment above him and helps to care for him at home. CXR, CT head and C-spine were negative in the ER except for noted pansinusitis on CT of the head and a large posterior disc osteophyte complex at C6-C7 likely contribute to acquired compromise of the central canal. U/a +ketones, otherwise negative; blood cultures are pending. EKG showed an incomplete right bundle branch block. He received Ceftriaxone and Levaquin for empiric coverage of PNA along with 2L NS bolus. He will be admitted for further work up/evaluation. Allergies Allergy/AdvReac Type Severity Reaction Status Date / Time iodine Allergy Severe Unknown Verified 07/20/18 14:42 Penicillins Allergy Severe AMOXIL = Verified 07/20/18 14:42 ANAPHYLACTIC RXN clavulanic acid Allergy Unknown Unknown Verified 07/20/18 14:42 morphine AdvReac Mild VOMITING Verified 07/20/18 14:42 Home Medications Home Medications Medication Instructions Recorded Confirmed Type atorvastatin 40 mg PO HS 02/01/18 07/20/18 History donepezil [Aricept] 10 mg PO DAILY 02/01/18 07/20/18 History nitroglycerin [Nitrostat] 0.4 mg SUBLINGUAL DIRECTED PRN 02/01/18 07/20/18 History aspirin 81 mg PO DAILY 06/09/18 07/20/18 History cholecalciferol (vitamin D3) 1,000 unit PO DAILY 06/09/18 07/20/18 History [Vitamin D3] clopidogrel 75 mg PO DAILY 06/09/18 07/20/18 History cyanocobalamin (vitamin B-12) 1,000 mcg PO DAILY 06/09/18 07/20/18 History [Vitamin B-12] famotidine 20 mg PO BID 06/09/18 07/20/18 History pantoprazole 40 mg PO DAILY 06/09/18 07/20/18 History ranolazine [Ranexa] 500 mg PO Q12 06/22/18 07/20/18 History nitroglycerin [Nitro-Dur] 1 patch TRANSDERMAL ONAMOFFPM 06/27/18 07/20/18 History metoprolol succinate 12.5 mg PO DAILY #30 tab 07/02/18 07/20/18 Rx Past Med/Surg History Medical History CAD (coronary artery disease) Vitamin D deficiency PVD (peripheral vascular disease) GERD (gastroesophageal reflux disease) HLD (hyperlipidemia) DM II (diabetes mellitus, type II), controlled Anemia Aortic stenosis AAA (abdominal aortic aneurysm) KAY (obstructive sleep apnea) Dementia CKD (chronic kidney disease), stage III HTN (hypertension), benign Chest pain (Acute) Ankle pain, right (Acute) Chronic combined systolic and diastolic heart failure Ischemic cardiomyopathy Surgical History History of quadruple bypass H/O heart artery stent Family History Other Family history non-contributory Social History Preferred Language: Thai Communication Ability: Effective Beliefs That Will Affect Care: None marital status: Current Living Situation: Spouse Other Information That Helps Us Care for You: No Feels Safe at Home: Yes Safety Concerns: Feels Safe At This Time Smoking Status: Former smoker Second Hand Exposure: No Hx Alcohol Use: No Hx Substance Use: No Review of Systems Review of Systems: Other (Limited due to cognitive status. ) Constitutional: no fever, no chills, no fatigue, no weakness and no anorexia Ear, Nose, Mouth, Throat: no nasal congestion, no nasal discharge, no sinus pain/pressure and no sore throat Respiratory: + cough; no dyspnea, no dyspnea on exertion, no sputum production and no wheezing Cardiovascular: no chest pain, no palpitations, no lightheadedness, no syncope and no edema Gastrointestinal: no abdominal pain, no nausea, no constipation and no diarrhea/loose stools Genitourinary: no dysuria and no difficulty urinating Musculoskeletal: no back pain and no joint pain Integumentary: no non-healing lesions Allergy / Immunological: no rash Physical Exam Physical Exam: General: Pleasant elderly male, appears stated age. HEENT: NC/AT; PERRLA with EOMI; [place] conjunctiva. Dry oral mucosa. Neck: Supple and nontender Cardiac: +3/6 systolic ejection murmur; RRR. Lungs: CTA bilaterally Abdomen: Bowel normoactive X 4; Nontender to palpation Rectal: Deferred : Deferred Back: NO spinous tenderness Extremities: Warm. No edema present Neuro: No focal weakness Skin: No rash Results & Data Vital Signs (Past 12 Hours) Vital Signs Temp Pulse Resp BP Pulse Ox 07/20/18 16:21 83 15 07/20/18 16:20 84 20 89/48 L 07/20/18 16:13 86 15 07/20/18 14:49 76 18 92/48 L 07/20/18 14:48 87 21 07/20/18 14:31 76 17 105/56 L 07/20/18 14:30 74 16 07/20/18 14:17 73 16 98 07/20/18 14:16 71 17 101/60 99 07/20/18 14:00 70 19 100 07/20/18 13:45 67 18 101/45 L 97 07/20/18 13:41 95 07/20/18 13:30 78 16 103/61 98 07/20/18 13:15 70 19 97 07/20/18 13:00 92 H 17 07/20/18 12:54 71 20 07/20/18 12:52 73 20 89/63 L 07/20/18 12:33 36.5 C 65 20 75/46 L 98 Laboratory Results 07/20/18 07/20/18 07/20/18 Range/Units 14:45 13:55 13:15 WBC (4.8-10.8) K/uL RBC (4.7-6.1) M/uL Hgb (14.0-18.0) g/dL POC Hgb 9.9 L (14.0-18.0) g/dl Hct (42-52) % POC Hct 29 L (42-52) % MCV (80-100) fL MCH (25-34) pg MCHC (32-36) g/dL RDW Std Deviation (36.4-46.3) fL RDW Coeff of Sandra (11.5-14.5) % Plt Count (130-400) K/uL MPV (7.4-10.4) fL Immature Gran % (Auto) % Neut % (Auto) % Lymph % (Auto) % [place] % (Auto) % Eos % (Auto) % Baso % (Auto) % Immature Gran # (Auto) (0.00-0.02) K/uL Neut # (Auto) (1.4-6.5) K/uL Lymph # (Auto) (1.2-3.4) K/uL [place] # (Auto) (0.11-0.59) K/uL Eos # (Auto) (0-0.5) K/uL Baso # (Auto) (0-0.2) K/uL PT (9.0-12.0) Seconds INR (0.9-1.1) APTT (21.0-31.0) Seconds PTT Ratio POC Sodium 135 (135-144) mEq/L Sodium (136-145) mmol/L POC Potassium 3.7 (3.3-5.0) mEq/L Potassium (3.5-5.1) mmol/L POC Chloride 98 L (101-112) mEq/L Chloride (98-107) mmol/L Carbon Dioxide (21-32) mmol/L POC Total CO2 23 L (24-31) mEq/l Anion Gap (3-11) POC Anion Gap 18.0 (16-25) mmol/L POC BUN 26 H (7-18) mg/dl BUN (7-18) mg/dl Creatinine (0.6-1.4) mg/dl POC Creatinine 1.6 H (0.6-1.3) mg/dl Est Cr Clr Drug Dosing ml/min Est GFR ( Amer) Est GFR (Non-Af Amer) BUN/Creatinine Ratio (10-20) Glucose (70-99) mg/dl POC Glucose (other) 140 H (70-99) mg/dl Lactate 1.7 (0.4-2.0) mmol/L Calcium (8.5-10.1) mg/dl POC Ioniz Calcium Marcie 1.10 L (1.12-1.32) mmol/l Total Bilirubin (0.2-1) mg/dl AST (15-37) U/L ALT (12-78) U/L Alkaline Phosphatase (45-117) U/L Total Protein (6.4-8.2) gm/dl Albumin (3.4-5.0) gm/dl Globulin (2.5-4.0) gm/dl Albumin/Globulin Ratio (0.9-2) Urine Color Yellow Urine Appearance Clear (Clear) Urine pH 5.0 (4.5-7.5) Ur Specific [place] 1.018 (1.000-1.030) Urine Protein Negative (Negative) Urine Glucose (UA) Negative (Negative) Urine Ketones Trace H (Negative) Urine Blood Negative (Negative) Urine Nitrite Negative (Negative) Urine Bilirubin Negative (Negative) Urine Urobilinogen Negative (Negative) Ur Leukocyte Esterase Negative (Negative) 07/20/18 07/20/18 07/20/18 Range/Units 13:15 13:15 13:15 WBC 7.33 (4.8-10.8) K/uL RBC 4.18 L (4.7-6.1) M/uL Hgb 12.2 L (14.0-18.0) g/dL POC Hgb (14.0-18.0) g/dl Hct 35.4 L (42-52) % POC Hct (42-52) % MCV 84.7 (80-100) fL MCH 29.2 (25-34) pg MCHC 34.5 (32-36) g/dL RDW Std Deviation 45.0 (36.4-46.3) fL RDW Coeff of Sandra 14.6 H (11.5-14.5) % Plt Count 265 (130-400) K/uL MPV 10.4 (7.4-10.4) fL Immature Gran % (Auto) 0.3 % Neut % (Auto) 69.3 % Lymph % (Auto) 19.9 % [place] % (Auto) 9.7 % Eos % (Auto) 0.5 % Baso % (Auto) 0.3 % Immature Gran # (Auto) 0.02 (0.00-0.02) K/uL Neut # (Auto) 5.08 (1.4-6.5) K/uL Lymph # (Auto) 1.46 (1.2-3.4) K/uL [place] # (Auto) 0.71 H (0.11-0.59) K/uL Eos # (Auto) 0.04 (0-0.5) K/uL Baso # (Auto) 0.02 (0-0.2) K/uL PT 11.0 (9.0-12.0) Seconds INR 1.1 (0.9-1.1) APTT 30.3 (21.0-31.0) Seconds PTT Ratio 1.1 POC Sodium (135-144) mEq/L Sodium 131 L (136-145) mmol/L POC Potassium (3.3-5.0) mEq/L Potassium 3.6 (3.5-5.1) mmol/L POC Chloride (101-112) mEq/L Chloride 99 (98-107) mmol/L Carbon Dioxide 24 (21-32) mmol/L POC Total CO2 (24-31) mEq/l Anion Gap 8.0 (3-11) POC Anion Gap (16-25) mmol/L POC BUN (7-18) mg/dl BUN 28 H (7-18) mg/dl Creatinine 1.58 H (0.6-1.4) mg/dl POC Creatinine (0.6-1.3) mg/dl Est Cr Clr Drug Dosing 37.7 ml/min Est GFR ( Amer) 46.2 Est GFR (Non-Af Amer) 39.9 BUN/Creatinine Ratio 17.9 (10-20) Glucose 147 H (70-99) mg/dl POC Glucose (other) (70-99) mg/dl Lactate (0.4-2.0) mmol/L Calcium 9.1 (8.5-10.1) mg/dl POC Ioniz Calcium Marcie (1.12-1.32) mmol/l Total Bilirubin 2.2 H (0.2-1) mg/dl AST 25 (15-37) U/L ALT 21 (12-78) U/L Alkaline Phosphatase 85 (45-117) U/L Total Protein 7.4 (6.4-8.2) gm/dl Albumin 3.4 (3.4-5.0) gm/dl Globulin 4.0 (2.5-4.0) gm/dl Albumin/Globulin Ratio 0.8 L (0.9-2) Urine Color Urine Appearance (Clear) Urine pH (4.5-7.5) Ur Specific [place] (1.000-1.030) Urine Protein (Negative) Urine Glucose (UA) (Negative) Urine Ketones (Negative) Urine Blood (Negative) Urine Nitrite (Negative) Urine Bilirubin (Negative) Urine Urobilinogen (Negative) Ur Leukocyte Esterase (Negative) Code Status & VTE Plan Code Status FULL CODE Supervising Physician Co-Signing Physician Notes PA Supervision Note: I personally saw and examined the patient. I verified all weber points and agree with AICHA Bourne with the following exceptions and/or additions: Patient presented to the ER with multiple falls and found to have low blood pressure. He has been afebrile but has had upper respiratory symptoms and rhinorrhea. Also has been confused and had a cough. History reviewed as above All laboratory and radiology imaging studies reviewed. Vitals reviewed Gen: Alert and awake, oriented x2, NAD but appears ill HEENT: Anicteric sclerae, EOMI CV: RRR 3/6 systolic ejection murmur at the right upper sternal border, nl S1S2 Pulm: Decreased breath sounds with crackles at the bases Abd: +BS soft NT ND no masses or hernias Ext: No edema Skin: No rashes, warm/dry 82-year-old male with complex history as above, here with acute metabolic encephalopathy, hypotension, falls and URI symptoms with cough, most likely with sinusitis and pneumonia, dehydration and acute kidney injury -Continue antibiotics as above Holding blood pressure meds -Trending troponin -Continue IV fluids -Follow BMP, CBC -Due to multiple falls and evidence on CT of the cervical spine of possible canal compromise-obtaining MRI of the cervical spine tonight and consultation with orthopedic spine surgeon (1) CAD (coronary artery disease) Associated angina: with unstable angina Coronary Disease-Associated Ar patel/Lesion type: [place] artery [place] vs. transplanted heart: [place] heart Qualified Code(s): I25.110 - Atherosclerotic heart disease of [place] coronary artery with unstable angina pectoris (2) AAA (abdominal aortic aneurysm) Presence of rupture: without rupture Qualified Code(s): I71.4 - Abdominal aortic aneurysm, without rupture (3) Aortic stenosis Cardiac valve disease etiology: etiology unspecified Qualified Code(s): I35.0 - Nonrheumatic aortic (valve) stenosis (4) HLD (hyperlipidemia) Hyperlipidemia type: pure hypercholesterolemia Qualified Code(s): E78.00 - Pure hypercholesterolemia, unspecified; E78.0 - Pure hypercholesterolemia (5) Altered mental status Altered mental status type: unspecified Qualified Code(s): R41.82 - Altered mental status, unspecified
[2018-07-20 17:54] LABS: Influenza A virus by PCR Neg for Influ A (Neg); Influenza B virus by PCR Neg for Influ B (Neg)
--- NOTE | 2018-07-20 18:10 | Emergency Department Note ---
Entered by Joann Hunt acting as a scribe for Allen Melvin DO History of Present Illness General Chief complaint: Hypotension Stated complaint: LIGHT HEADED, FALLS, WEAKNESS, COUGH, LOW BLOOD DC Source: patient and family (son) History of Present Illness Onset (ago): day(s) 3 Location: head Pain Consistency: + other (persistent) Quality: + other (weakness) Associated symptoms: + confusion and + other (diarrhea, cough, rhinorrhea, congestion, falls ) The patient is a 82 year old male that is presenting to the Emergency Room with complaints of persistent weakness that started 3 days. The patients son reports that the patient has had low blood pressure and has been falling repeatedly over the past 2-3 days. His son notes that the patients symptoms have been progressively worsening to the point where he is unable to get out of a chair or out of bed on his own. His son states that the patient does not fall suddenly but instead gradually tumbles to the ground. His son states that he is unsure if the patient hit his head during his most recent fall as he was not present for the event. The son reports that the patient has become incontinent in his bowels with frequent diarrhea. The patient denies any dysuria. The patients son states that the patient is confused and the patient is unable to state the month or year upon exam. His son notes that the patient has developed a cough, rhinorrhea, and congestion around the same time as his weakness began. His son reports that they are giving the patient Robitussin DM every 4-6 hours during the day and one-half dose at night. The patients son reports that the patient was in the Emergency Room 2-3 weeks ago for hypoglycemia which has improved since that time. The son notes that they have a nurse that visits the patient 2 times a week at home. The patients son reports that the patient had a heart attack around 1 month ago, 1 week prior to his ER visit for hypoglycemia. His son states that the patient takes Metoprolol. Home Medications Home Medications Medication Instructions Recorded Confirmed Type atorvastatin 40 mg PO HS 02/01/18 07/20/18 History donepezil [Aricept] 10 mg PO DAILY 02/01/18 07/20/18 History nitroglycerin [Nitrostat] 0.4 mg SUBLINGUAL DIRECTED PRN 02/01/18 07/20/18 History aspirin 81 mg PO DAILY 06/09/18 07/20/18 History cholecalciferol (vitamin D3) 1,000 unit PO DAILY 06/09/18 07/20/18 History [Vitamin D3] clopidogrel 75 mg PO DAILY 06/09/18 07/20/18 History cyanocobalamin (vitamin B-12) 1,000 mcg PO DAILY 06/09/18 07/20/18 History [Vitamin B-12] famotidine 20 mg PO BID 06/09/18 07/20/18 History pantoprazole 40 mg PO DAILY 06/09/18 07/20/18 History ranolazine [Ranexa] 500 mg PO Q12 06/22/18 07/20/18 History nitroglycerin [Nitro-Dur] 1 patch TRANSDERMAL ONAMOFFPM 06/27/18 07/20/18 History metoprolol succinate 12.5 mg PO DAILY #30 tab 07/02/18 07/20/18 Rx Allergies Allergy/AdvReac Type Severity Reaction Status Date / Time iodine Allergy Severe Unknown Verified 07/20/18 14:42 Penicillins Allergy Severe AMOXIL = Verified 07/20/18 14:42 ANAPHYLACTIC RXN clavulanic acid Allergy Unknown Unknown Verified 07/20/18 14:42 morphine AdvReac Mild VOMITING Verified 07/20/18 14:42 Past Med/Surg History Medical History CAD (coronary artery disease) Vitamin D deficiency PVD (peripheral vascular disease) GERD (gastroesophageal reflux disease) HLD (hyperlipidemia) DM II (diabetes mellitus, type II), controlled Anemia Aortic stenosis AAA (abdominal aortic aneurysm) KAY (obstructive sleep apnea) Dementia CKD (chronic kidney disease), stage III HTN (hypertension), benign Chest pain (Acute) Ankle pain, right (Acute) Chronic combined systolic and diastolic heart failure Ischemic cardiomyopathy Surgical History History of quadruple bypass H/O heart artery stent Family History Other Family history non-contributory Social History Preferred Language: Georgian Communication Ability: Effective Beliefs That Will Affect Care: None marital status: Current Living Situation: Spouse Other Information That Helps Us Care for You: No Feels Safe at Home: Yes Safety Concerns: Feels Safe At This Time Smoking Status: Former smoker Second Hand Exposure: No Hx Alcohol Use: No Hx Substance Use: No Review of Systems See HPI for pertinent positives & negatives. and A total of 10 systems reviewed and were otherwise negative Physical Exam Vital Signs Vital Signs - 24 hr 07/20/18 12:33 07/20/18 12:52 07/20/18 12:54 Temperature 36.5 C Temperature Source Oral Sepsis Recent Fever Within 48 Hours No Sepsis Action Taken by Nursing No Action Required Pulse Rate 65 73 71 Pulse Rate from SpO2 Sensor Pulse Rhythm Regular Pulse Strength Normal Respiratory Rate 20 20 20 Respiratory Effort / Characteristics Non-Labored Spontaneous Respiratory Depth Normal Respiratory Pattern Regular Blood Pressure 75/46 L 89/63 L Blood Pressure Mean 55 71 Pulse Oximetry 98 Oxygen Delivery Method Room Air 07/20/18 13:00 07/20/18 13:15 07/20/18 13:30 Temperature Temperature Source Sepsis Recent Fever Within 48 Hours Sepsis Action Taken by Nursing Pulse Rate 92 H 70 78 Pulse Rate from SpO2 Sensor 93 H 71 78 Pulse Rhythm Regular Pulse Strength Respiratory Rate 17 19 16 Respiratory Effort / Characteristics Respiratory Depth Respiratory Pattern Blood Pressure 103/61 Blood Pressure Mean 75 Pulse Oximetry 97 98 Oxygen Delivery Method Room Air Room Air 07/20/18 13:41 07/20/18 13:45 07/20/18 14:00 Temperature Temperature Source Sepsis Recent Fever Within 48 Hours Sepsis Action Taken by Nursing Pulse Rate 67 70 Pulse Rate from SpO2 Sensor 68 68 Pulse Rhythm Pulse Strength Respiratory Rate 18 19 Respiratory Effort / Characteristics Respiratory Depth Respiratory Pattern Blood Pressure 101/45 L Blood Pressure Mean 63 Pulse Oximetry 95 97 100 Oxygen Delivery Method Room Air 07/20/18 14:16 07/20/18 14:17 07/20/18 14:30 Temperature Temperature Source Sepsis Recent Fever Within 48 Hours Sepsis Action Taken by Nursing Pulse Rate 71 73 74 Pulse Rate from SpO2 Sensor 72 69 Pulse Rhythm Pulse Strength Respiratory Rate 17 16 16 Respiratory Effort / Characteristics Respiratory Depth Respiratory Pattern Blood Pressure 101/60 Blood Pressure Mean 73 Pulse Oximetry 99 98 Oxygen Delivery Method 07/20/18 14:31 07/20/18 14:48 07/20/18 14:49 Temperature Temperature Source Sepsis Recent Fever Within 48 Hours Sepsis Action Taken by Nursing Pulse Rate 76 87 76 Pulse Rate from SpO2 Sensor Pulse Rhythm Pulse Strength Respiratory Rate 17 21 18 Respiratory Effort / Characteristics Respiratory Depth Respiratory Pattern Blood Pressure 105/56 L 92/48 L Blood Pressure Mean 72 62 Pulse Oximetry Oxygen Delivery Method 07/20/18 16:13 07/20/18 16:20 07/20/18 16:21 Temperature Temperature Source Sepsis Recent Fever Within 48 Hours Sepsis Action Taken by Nursing Pulse Rate 86 84 83 Pulse Rate from SpO2 Sensor Pulse Rhythm Pulse Strength Respiratory Rate 15 20 15 Respiratory Effort / Characteristics Respiratory Depth Respiratory Pattern Blood Pressure 89/48 L Blood Pressure Mean 61 Pulse Oximetry Oxygen Delivery Method 07/20/18 16:30 07/20/18 16:45 07/20/18 16:46 Temperature Temperature Source Sepsis Recent Fever Within 48 Hours Sepsis Action Taken by Nursing Pulse Rate 69 68 78 Pulse Rate from SpO2 Sensor Pulse Rhythm Pulse Strength Respiratory Rate 14 16 16 Respiratory Effort / Characteristics Respiratory Depth Respiratory Pattern Blood Pressure 112/58 L 108/63 Blood Pressure Mean 76 78 Pulse Oximetry Oxygen Delivery Method Room Air 07/20/18 17:00 07/20/18 17:01 07/20/18 17:15 Temperature Temperature Source Sepsis Recent Fever Within 48 Hours Sepsis Action Taken by Nursing Pulse Rate 67 70 67 Pulse Rate from SpO2 Sensor Pulse Rhythm Pulse Strength Respiratory Rate 15 14 14 Respiratory Effort / Characteristics Respiratory Depth Respiratory Pattern Blood Pressure 122/67 Blood Pressure Mean 85 Pulse Oximetry Oxygen Delivery Method 07/20/18 17:16 07/20/18 17:25 07/20/18 17:28 Temperature Temperature Source Sepsis Recent Fever Within 48 Hours Sepsis Action Taken by Nursing Pulse Rate 69 98 H Pulse Rate from SpO2 Sensor Pulse Rhythm Pulse Strength Respiratory Rate 15 20 Respiratory Effort / Characteristics Respiratory Depth Respiratory Pattern Blood Pressure 110/83 110/83 Blood Pressure Mean 92 92 Pulse Oximetry 99 Oxygen Delivery Method Room Air GENERAL: Sitting up in bed, disheveled, chronically-ill appearing, well nourished, no distress, non-toxic EYE EXAM: normal conjunctiva OROPHARYNX: no exudate, no erythema, lips, buccal mucosa, and tongue normal and mucous membranes are moist NECK: supple, no nuchal rigidity, no adenopathy, non-tender LUNGS: Clear to auscultation. Normal chest wall mechanics HEART: no murmurs, S1 normal and S2 normal ABDOMEN: abdomen soft, non-tender, normo-active bowel sounds, no masses, no rebound or guarding. BACK: Back is symmetrical on inspection and there is no deformity, no midline tenderness, no CVA tenderness. SKIN: no rashes and no bruising UPPER EXTREMITIES: upper extremities are grossly normal. LOWER EXTREMITIES: No pitting edema. NEURO EXAM: Awake, alert, following commands but slightly confused. No focal deficits Course ED COURSE: Vital signs were reviewed and showed normal. The patients medical record was reviewed The above diagnostic studies were performed and reviewed. ED treatments and interventions as stated above. 1239: The patient was evaluated in room B07. A complete history and physical examination was performed. 1507: I discussed the patient's case with DAWSON Gonzales, who will evaluate the patient for further management and care. 1515: Upon reevaluation, the patient is resting comfortably. .I discussed my findings with the patient and he understands and agrees with the treatment plan. Based on the patients age, coexisting illnesses, exam and lab findings the decision to treat as an inpatient was made. The patient remained stable while under my care. The patient will be evaluated for further management. Consultations Consultation #1: I discussed the patient's case with DAWSON Gonzales, who will evaluate the patient for further management and care. Time: 15:07 Administered Medications Levofloxacin/Dextrose (Levaquin/D5w) 750 mg in 150 mls @ 100 mls/hr IV Q24H DAYSI Stop: 08/31/18 15:44 Last Infusion: 07/20/18 17:54 Dose: 0 mls/hr Documented by: [id number] Admin: 07/20/18 16:21 Dose: 100 mls/hr Documented by: [id number] Discontinued Medications Sodium Chloride (Nss 1000ml) 2,000 mls @ 999 mls/hr IV .Q2H1M ONE Stop: 07/20/18 14:58 Last Infusion: 07/20/18 15:33 Dose: 0 mls/hr Documented by: [id number] Admin: 07/20/18 13:31 Dose: 999 mls/hr Documented by: [id number] Ceftriaxone Sodium (Rocephin) 1,000 mg in 50 mls @ 100 mls/hr IV NOW STA Stop: 07/20/18 16:00 Last Infusion: 07/20/18 16:59 Dose: 0 mls/hr Documented by: [id number] Admin: 07/20/18 16:21 Dose: 100 mls/hr Documented by: [id number] Medical Decision Making Differential Diagnosis Differential diagnoses includes but is not limited to toxic, metabolic, infectious, traumatic, cardiac, neurologic, hematologic, psychiatric and inflammatory etiologies. Medical Records Attestation: I reviewed the patient's medical records. Home Medications Current Medication List: was personally reviewed by me Laboratory Data Attestation: I reviewed the patient's lab results. Result diagrams: 07/20/18 13:15 07/20/18 13:15 Lab Results 07/20/18 07/20/18 07/20/18 Range/Units 13:15 13:15 13:15 WBC 7.33 (4.8-10.8) K/uL RBC 4.18 L (4.7-6.1) M/uL Hgb 12.2 L (14.0-18.0) g/dL POC Hgb (14.0-18.0) g/dl Hct 35.4 L (42-52) % POC Hct (42-52) % MCV 84.7 (80-100) fL MCH 29.2 (25-34) pg MCHC 34.5 (32-36) g/dL RDW Std Deviation 45.0 (36.4-46.3) fL RDW Coeff of Sandra 14.6 H (11.5-14.5) % Plt Count 265 (130-400) K/uL MPV 10.4 (7.4-10.4) fL Immature Gran % (Auto) 0.3 % Neut % (Auto) 69.3 % Lymph % (Auto) 19.9 % [place] % (Auto) 9.7 % Eos % (Auto) 0.5 % Baso % (Auto) 0.3 % Immature Gran # (Auto) 0.02 (0.00-0.02) K/uL Neut # (Auto) 5.08 (1.4-6.5) K/uL Lymph # (Auto) 1.46 (1.2-3.4) K/uL [place] # (Auto) 0.71 H (0.11-0.59) K/uL Eos # (Auto) 0.04 (0-0.5) K/uL Baso # (Auto) 0.02 (0-0.2) K/uL PT 11.0 (9.0-12.0) Seconds INR 1.1 (0.9-1.1) APTT 30.3 (21.0-31.0) Seconds PTT Ratio 1.1 POC Sodium (135-144) mEq/L Sodium 131 L (136-145) mmol/L POC Potassium (3.3-5.0) mEq/L Potassium 3.6 (3.5-5.1) mmol/L POC Chloride (101-112) mEq/L Chloride 99 (98-107) mmol/L Carbon Dioxide 24 (21-32) mmol/L POC Total CO2 (24-31) mEq/l Anion Gap 8.0 (3-11) POC Anion Gap (16-25) mmol/L POC BUN (7-18) mg/dl BUN 28 H (7-18) mg/dl Creatinine 1.58 H (0.6-1.4) mg/dl POC Creatinine (0.6-1.3) mg/dl Est Cr Clr Drug Dosing 37.7 ml/min Est GFR ( Amer) 46.2 Est GFR (Non-Af Amer) 39.9 BUN/Creatinine Ratio 17.9 (10-20) Glucose 147 H (70-99) mg/dl POC Glucose (other) (70-99) mg/dl Lactate (0.4-2.0) mmol/L Calcium 9.1 (8.5-10.1) mg/dl POC Ioniz Calcium Marcie (1.12-1.32) mmol/l Total Bilirubin 2.2 H (0.2-1) mg/dl AST 25 (15-37) U/L ALT 21 (12-78) U/L Alkaline Phosphatase 85 (45-117) U/L Troponin I (0-0.045) ng/ml Total Protein 7.4 (6.4-8.2) gm/dl Albumin 3.4 (3.4-5.0) gm/dl Globulin 4.0 (2.5-4.0) gm/dl Albumin/Globulin Ratio 0.8 L (0.9-2) Urine Color Urine Appearance (Clear) Urine pH (4.5-7.5) Ur Specific Canon (1.000-1.030) Urine Protein (Negative) Urine Glucose (UA) (Negative) Urine Ketones (Negative) Urine Blood (Negative) Urine Nitrite (Negative) Urine Bilirubin (Negative) Urine Urobilinogen (Negative) Ur Leukocyte Esterase (Negative) Influenza Type A (PCR) (Neg) Influenza Type B (PCR) (Neg) 07/20/18 07/20/18 07/20/18 Range/Units 13:15 13:55 14:45 WBC (4.8-10.8) K/uL RBC (4.7-6.1) M/uL Hgb (14.0-18.0) g/dL POC Hgb 9.9 L (14.0-18.0) g/dl Hct (42-52) % POC Hct 29 L (42-52) % MCV (80-100) fL MCH (25-34) pg MCHC (32-36) g/dL RDW Std Deviation (36.4-46.3) fL RDW Coeff of Sandra (11.5-14.5) % Plt Count (130-400) K/uL MPV (7.4-10.4) fL Immature Gran % (Auto) % Neut % (Auto) % Lymph % (Auto) % [place] % (Auto) % Eos % (Auto) % Baso % (Auto) % Immature Gran # (Auto) (0.00-0.02) K/uL Neut # (Auto) (1.4-6.5) K/uL Lymph # (Auto) (1.2-3.4) K/uL [place] # (Auto) (0.11-0.59) K/uL Eos # (Auto) (0-0.5) K/uL Baso # (Auto) (0-0.2) K/uL PT (9.0-12.0) Seconds INR (0.9-1.1) APTT (21.0-31.0) Seconds PTT Ratio POC Sodium 135 (135-144) mEq/L Sodium (136-145) mmol/L POC Potassium 3.7 (3.3-5.0) mEq/L Potassium (3.5-5.1) mmol/L POC Chloride 98 L (101-112) mEq/L Chloride (98-107) mmol/L Carbon Dioxide (21-32) mmol/L POC Total CO2 23 L (24-31) mEq/l Anion Gap (3-11) POC Anion Gap 18.0 (16-25) mmol/L POC BUN 26 H (7-18) mg/dl BUN (7-18) mg/dl Creatinine (0.6-1.4) mg/dl POC Creatinine 1.6 H (0.6-1.3) mg/dl Est Cr Clr Drug Dosing ml/min Est GFR ( Amer) Est GFR (Non-Af Amer) BUN/Creatinine Ratio (10-20) Glucose (70-99) mg/dl POC Glucose (other) 140 H (70-99) mg/dl Lactate 1.7 (0.4-2.0) mmol/L Calcium (8.5-10.1) mg/dl POC Ioniz Calcium Marcie 1.10 L (1.12-1.32) mmol/l Total Bilirubin (0.2-1) mg/dl AST (15-37) U/L ALT (12-78) U/L Alkaline Phosphatase (45-117) U/L Troponin I (0-0.045) ng/ml Total Protein (6.4-8.2) gm/dl Albumin (3.4-5.0) gm/dl Globulin (2.5-4.0) gm/dl Albumin/Globulin Ratio (0.9-2) Urine Color Yellow Urine Appearance Clear (Clear) Urine pH 5.0 (4.5-7.5) Ur Specific Canon 1.018 (1.000-1.030) Urine Protein Negative (Negative) Urine Glucose (UA) Negative (Negative) Urine Ketones Trace H (Negative) Urine Blood Negative (Negative) Urine Nitrite Negative (Negative) Urine Bilirubin Negative (Negative) Urine Urobilinogen Negative (Negative) Ur Leukocyte Esterase Negative (Negative) Influenza Type A (PCR) (Neg) Influenza Type B (PCR) (Neg) 07/20/18 07/20/18 Range/Units 17:10 17:13 WBC (4.8-10.8) K/uL RBC (4.7-6.1) M/uL Hgb (14.0-18.0) g/dL POC Hgb (14.0-18.0) g/dl Hct (42-52) % POC Hct (42-52) % MCV (80-100) fL MCH (25-34) pg MCHC (32-36) g/dL RDW Std Deviation (36.4-46.3) fL RDW Coeff of Sandra (11.5-14.5) % Plt Count (130-400) K/uL MPV (7.4-10.4) fL Immature Gran % (Auto) % Neut % (Auto) % Lymph % (Auto) % [place] % (Auto) % Eos % (Auto) % Baso % (Auto) % Immature Gran # (Auto) (0.00-0.02) K/uL Neut # (Auto) (1.4-6.5) K/uL Lymph # (Auto) (1.2-3.4) K/uL [place] # (Auto) (0.11-0.59) K/uL Eos # (Auto) (0-0.5) K/uL Baso # (Auto) (0-0.2) K/uL PT (9.0-12.0) Seconds INR (0.9-1.1) APTT (21.0-31.0) Seconds PTT Ratio POC Sodium (135-144) mEq/L Sodium (136-145) mmol/L POC Potassium (3.3-5.0) mEq/L Potassium (3.5-5.1) mmol/L POC Chloride (101-112) mEq/L Chloride (98-107) mmol/L Carbon Dioxide (21-32) mmol/L POC Total CO2 (24-31) mEq/l Anion Gap (3-11) POC Anion Gap (16-25) mmol/L POC BUN (7-18) mg/dl BUN (7-18) mg/dl Creatinine (0.6-1.4) mg/dl POC Creatinine (0.6-1.3) mg/dl Est Cr Clr Drug Dosing ml/min Est GFR ( Amer) Est GFR (Non-Af Amer) BUN/Creatinine Ratio (10-20) Glucose (70-99) mg/dl POC Glucose (other) (70-99) mg/dl Lactate (0.4-2.0) mmol/L Calcium (8.5-10.1) mg/dl POC Ioniz Calcium Marcie (1.12-1.32) mmol/l Total Bilirubin (0.2-1) mg/dl AST (15-37) U/L ALT (12-78) U/L Alkaline Phosphatase (45-117) U/L Troponin I < 0.015 (0-0.045) ng/ml Total Protein (6.4-8.2) gm/dl Albumin (3.4-5.0) gm/dl Globulin (2.5-4.0) gm/dl Albumin/Globulin Ratio (0.9-2) Urine Color Urine Appearance (Clear) Urine pH (4.5-7.5) Ur Specific Canon (1.000-1.030) Urine Protein (Negative) Urine Glucose (UA) (Negative) Urine Ketones (Negative) Urine Blood (Negative) Urine Nitrite (Negative) Urine Bilirubin (Negative) Urine Urobilinogen (Negative) Ur Leukocyte Esterase (Negative) Influenza Type A (PCR) Neg for Influ A (Neg) Influenza Type B (PCR) Neg for Influ B (Neg) Imaging Data Radiologist's Impression: Radiology results as stated below per my review and the radiologist's interpretation: XR chest 1V portable CLINICAL HISTORY: Sepsis COMPARISON STUDY: 06/28/2018 FINDINGS: There are postsurgical changes of midline sternotomy. There is no focal pulmonary consolidation. There is been near complete resolution of the previous described pleural effusions.[ There are persistent left basilar opacities statistically atelectatic although an infectious/inflammatory process could potentially appear similar. IMPRESSION: 1. Near complete interval resolution of the previous identified pleural effusions 2. No current evidence of failure 3. Left basilar opacities statistically atelectatic Electronically signed by: Hermelindo Maravilla M.D. 07/20/2018 1:[address] SCAN OF THE BRAIN WITHOUT IV CONTRAST CLINICAL HISTORY: Trauma. Fall. COMPARISON STUDY: CT of the brain dated 06/27/2018. TECHNIQUE: Unenhanced axial CT scan of the brain is performed from the vertex to the skull base. A dose lowering technique was utilized adhering to the principles of ALARA. FINDINGS: Brain parenchyma: There are age-related involutional changes noting mild subcortical and periventricular microangiopathic change. There is no hemorrhage, mass effect, or evidence of acute territorial ischemia by CT criteria. Peterson- white matter differentiation is preserved. No extra-axial fluid collection is seen. Ventricles, sulci, cisterns: Prominent secondary to involutional change. Intracranial vasculature: There is atherosclerotic calcification of the cavernous carotid and vertebral arteries. Calvarium: The skeletal structures are osteopenic. No depressed calvarial fracture is seen. Sinuses and mastoids: There is subtotal opacification of the ethmoid sinuses. Air-fluid levels are noted in the maxillary antra. Mild mucosal thickening is se en in the frontal and sphenoid sinuses. There our trace mastoid effusions. Orbits: The bony orbits are grossly intact. There are bilateral ocular lens implants. IMPRESSION: 1. There is no hemorrhage, mass effect, or evidence of acute territorial ischemia by CT criteria. 2. Findings of pansinusitis as above. Electronically signed by: Glenn Pena M.D. 07/20/2018 3:[address] SCAN OF THE CERVICAL SPINE CLINICAL HISTORY: Trauma. Fall. COMPARISON STUDY: CT scan of the cervical spine dated 06/22/2018. TECHNIQUE: CT scan of the cervical spine is performed from the skull base to the upper thoracic spine. Images are reviewed in the axial, sagittal, and coronal planes. IV contrast was not administered for this examination. A dose lowering technique was utilized adhering to the principles of ALARA. CT DOSE: 970.88 mGy.cm FINDINGS: Skeletal structures: The skeletal structures are osteopenic. There is no evidence of fracture or subluxation involving the cervical spine. Vertebral body height and alignment are maintained. Anterior osteophytes are noted in the lower cervical region. The odontoid process and lateral masses are intact. The atlantoaxial articulation is preserved noting productive degenerative change. The spinous processes appear intact. There is moderate multilevel cervical spondylosis. Uncovertebral and facet arthropathy contribute to neural foraminal stenosis at several levels. Intervertebral discs: There is moderate to advanced disc space narrowing at C6- C7. Mild disc space narrowing is seen at C5-C6. Central canal: A large posterior disc osteophyte complex at C6-C7 likely contribute to acquired compromise of the central canal. Soft tissues: The prevertebral and paraspinous soft tissues are within normal limits. Atherosclerotic calcification is noted in the carotid bulbs. Calvarium: The visualized calvarium at the skull base appears intact. Brain parenchyma: Partially visualized brain parenchyma the skull base is within normal limits. Sinuses and mastoids: There are air-fluid levels within the maxillary antra. Mucosal thickening is seen in the sphenoid sinuses. There are trace mastoid effusions. Lung apices: Clear as visualized. IMPRESSION: 1. There is no evidence of fracture or subluxation involving the cervical spine. 2. Osteopenia and spondylotic change as above. Electronically signed by: Glenn Pena M.D. 07/20/2018 3:17 PM ECG Data Attestation: I personally reviewed and interpreted this ECG as follows: Indication: altered mental status Rate (beats per minute): 74 Rhythm: sinus rhythm Findings: + other (T-wave flattening in lateral leads), + Q waves (Inferior) and + RBBB Blood Pressure Blood Pressure Findings: Low blood pressure MDM Narrative Patient is an 82-year-old male who presents the ER for confusion associated with recurrent falls. Upon presentation the ER patient is found to have systolic blood pressures in the 70s. Son notes that he has been confused over the past couple days associated with cough congestion or runny nose. Labs were obtained and shows no significant leukocytosis. Hemoglobin is unremarkable at 12.2. INR is unremarkable. BMP was unremarkable. Creatinine was 1.5. Lactate was normal. Troponin was negative. UA was unremarkable. Influenza a and B was negative. CT of the head and cervical spine were unremarkable. Chest x-ray with a left lower lobe atelectasis versus pneumonia. Based on symptoms did elect to treat as pneumonia. Patient was given IV fluids x2 L and systolic pressures trended up from the 70s to the low 100s. Did give the patient a dose of IV Levaquin. Updated bedside. Patient was admitted for further work-up of the hypotension and upper respiratory symptoms with questionable left lower lobe pneumonia. Impression & Plan Hypotensive episode, Altered mental status, Pneumonia, Recurrent falls Discharge Plan Visit Data Chief Complaint: Hypotension Stated Complaint: LIGHT HEADED, FALLS, WEAKNESS, COUGH, LOW BLOOD DC ED Provider: Allen Melvin Discharge Problem: Hypotensive episode, Altered mental status, Pneumonia, Recurrent falls Patient Disposition: Being Evaluated by Hospitalist Discharge Instructions Interventions: ED Discharge Assessment Last Done: 07/20/18 17:28 Discharge Problem: Altered mental status Qualifiers: Altered mental status type: unspecified Qualified Code(s): R41.82 - Altered mental status, unspecified Pneumonia Qualifiers: Pneumonia type: due to unspecified organism Laterality: bilateral Lung location: lower lobe of lung Qualified Code(s): J18.1 - Lobar pneumonia, unspecified organism The scribe's documentation has been prepared under my direction and personally reviewed by me in its entirety. I confirm that the note above accurately reflects all work, treatment, procedures, and medical decision making performed by me.
[2018-07-20] MEDS: SODIUM CHLORIDE 0.9% 1000ML 1,000 ML IV SCH (18:18)
[2018-07-20] MEDS ORDERED: GADOBUTROL 65ML VIAL IV PRN (20:53)
[2018-07-20] MEDS: ATORVASTATIN 40 MG TAB PO SCH (21:16)
[2018-07-20] MEDS: HEPARIN SOD 5,000 UNIT/0.5 ML VIAL SQ SCH (21:16)
[2018-07-20] MEDS: FAMOTIDINE 20 MG TAB PO SCH (21:16)
[2018-07-20] MEDS: RANOLAZINE 500 MG ER TAB PO SCH (21:16)
--- NOTE | 2018-07-20 21:32 | Magnetic Resonance Report ---
MRI OF THE CERVICAL SPINE WITH AND WITHOUT CONTRAST CLINICAL HISTORY: Rule out compression. Fall. COMPARISON: CT of the cervical spine July 20, 2018. TECHNIQUE: Utilizing a 1.5 Fanny magnet and dedicated coil, multiplanar, multiecho imaging of the ce rvical spine was performed before and after intravenous administration of 8.5 of Gadavist. FINDINGS: Alignment of the cervical spine is anatomic. No acute fracture. There is no suspicious marrow replace ment. Exam is mildly compromised by motion artifact. Cervical cord signal and caliber are normal. The re is no intracanalicular mass or fluid collection. There is no abnormal enhancement. Paravertebral s oft tissues are unremarkable. C2-C3: The central canal and neural foramen are patent. C3-C4: The central canal and left neural foramen are patent. There is mild narrowing of the right ne ural foramen. C4-C5: Central canal is patent. Neural foramen are patent. C5-C6: There is minimal posterior disc osteophyte complex. Central canal is patent. Neural foramen a re patent. C6-C7: There is disc space narrowing with posterior disc osteophyte complex that effaces the ventral thecal sac. There is minimal narrowing of the central canal. There is mild narrowing of the right ne ural foramen. C7-T1: Central canal and neural foramen are patent. IMPRESSION: 1. No acute process within the cervical spine. 2. Exam mildly compromised by motion artifact. 3. Mild multilevel degenerative disc disease and facet arthrosis. No cord compression. Mild central c anal narrowing at C6-C7. Mild multilevel neural foraminal stenosis. Electronically signed by: Carlos Russell M.D. 07/20/2018 9:31 PM
[2018-07-21 02:48] LABS: Hematocrit (blood only) 32.9 % (42-52); Hemoglobin 11.3 g/dL (14.0-18.0); Mean Corpuscular Hgb Conc 34.3 g/dL (32-36); Platelet Count 225 K/uL (130-400); RDW Coefficient of Variation 14.5 % (11.5-14.5); Red Blood Count 3.87 M/uL (4.7-6.1); White Blood Count 6.31 K/uL (4.8-10.8)
[2018-07-21 03:26] LABS: Albumin Level 2.8 gm/dl (3.4-5.0); BUN Creatinine Ratio 18.2 (10-20); Calcium 8.4 mg/dl (8.5-10.1); Creatinine Clr Calc Pharmacy 48.5 ml/min; Est GFR (African American) 62.5; Potassium 4.3 mmol/L (3.5-5.1)
[2018-07-21 03:40] LABS: Albumin Globulin Ratio 0.8 (0.9-2); Bilirubin,Total 1.5 mg/dl (0.2-1); Globulin 3.5 gm/dl (2.5-4.0); Total Protein 6.3 gm/dl (6.4-8.2); Troponin I 0.032 ng/ml (0-0.045)
[2018-07-21] MEDS: HEPARIN SOD 5,000 UNIT/0.5 ML VIAL SQ SCH ×3 (05:30→21:11)
[2018-07-21] MEDS: SODIUM CHLORIDE 0.9% 1000ML 1,000 ML IV SCH ×2 (06:22→15:25)
[2018-07-21] MEDS: DONEPEZIL HCL 10 MG TAB PO SCH (08:24)
[2018-07-21] MEDS: ASPIRIN 81 MG ECTAB PO SCH (08:25)
[2018-07-21] MEDS: RANOLAZINE 500 MG ER TAB PO SCH ×2 (08:25→21:11)
[2018-07-21] MEDS: CLOPIDOGREL BISULFATE 75 MG TAB PO SCH (08:25)
[2018-07-21] MEDS: FAMOTIDINE 20 MG TAB PO SCH ×2 (08:25→21:11)
[2018-07-21] MEDS: PANTOprazole 40 MG TAB PO SCH (08:25)
--- NOTE | 2018-07-21 12:35 | Orthopedic Consultation ---
Date of Consultation July 21, 2018 Assessment & Plan (1) Cervical spine disease: I reviewed with the patient and his son who is at the bedside his MRI findings. He is a very healthy spinal cord without evidence of compression or myelomalacia. I suspect that his falls are not related to any cervical spine disease. I relayed this to the patient and his son. Consultation. Present on Admission?: Yes History of Present Illness Reason for Consultation: Frequent falls Attending Physician: Fariba Fong MD History of Present Illness Is a very pleasant 82-year-old male that presents the emergency room last night with multiple medical issues and a history of falls. A CAT scan of the cervical spine was obtained demonstrate severe multilevel spondylosis. Today he states he feels very comfortable. His son is in the room. He denies any numbness and tingling to the upper lower extremities. Denies any cervicalgia. Allergies Allergy/AdvReac Type Severity Reaction Status Date / Time iodine Allergy Severe Unknown Verified 07/20/18 14:42 Penicillins Allergy Severe AMOXIL = Verified 07/20/18 14:42 ANAPHYLACTIC RXN clavulanic acid Allergy Unknown Unknown Verified 07/20/18 14:42 morphine AdvReac Mild VOMITING Verified 07/20/18 14:42 Home Medications Home Medications Medication Instructions Recorded Confirmed Type atorvastatin 40 mg PO HS 02/01/18 07/20/18 History donepezil [Aricept] 10 mg PO DAILY 02/01/18 07/20/18 History nitroglycerin [Nitrostat] 0.4 mg SUBLINGUAL DIRECTED PRN 02/01/18 07/20/18 History aspirin 81 mg PO DAILY 06/09/18 07/20/18 History cholecalciferol (vitamin D3) 1,000 unit PO DAILY 06/09/18 07/20/18 History [Vitamin D3] clopidogrel 75 mg PO DAILY 06/09/18 07/20/18 History cyanocobalamin (vitamin B-12) 1,000 mcg PO DAILY 06/09/18 07/20/18 History [Vitamin B-12] famotidine 20 mg PO BID 06/09/18 07/20/18 History pantoprazole 40 mg PO DAILY 06/09/18 07/20/18 History ranolazine [Ranexa] 500 mg PO Q12 06/22/18 07/20/18 History nitroglycerin [Nitro-Dur] 1 patch TRANSDERMAL ONAMOFFPM 06/27/18 07/20/18 History metoprolol succinate 12.5 mg PO DAILY #30 tab 07/02/18 07/20/18 Rx Patient History Medical History CAD (coronary artery disease) Vitamin D deficiency PVD (peripheral vascular disease) GERD (gastroesophageal reflux disease) HLD (hyperlipidemia) DM II (diabetes mellitus, type II), controlled Anemia Aortic stenosis AAA (abdominal aortic aneurysm) KAY (obstructive sleep apnea) Dementia CKD (chronic kidney disease), stage III HTN (hypertension), benign Chest pain (Acute) Ankle pain, right (Acute) Chronic combined systolic and diastolic heart failure Ischemic cardiomyopathy Surgical History History of quadruple bypass H/O heart artery stent Family History Other Family history non-contributory Social History Preferred Language: Korean Communication Ability: Effective Beliefs That Will Affect Care: None marital status: Current Living Situation: Spouse Other Information That Helps Us Care for You: No Feels Safe at Home: Yes Safety Concerns: Feels Safe At This Time Smoking Status: Former smoker Second Hand Exposure: No Hx Alcohol Use: No Hx Substance Use: No Physical Exam Physical Exam: On exam he is alert and oriented appears quite comfortable. Is excellent strength testing. Sensory intact upper lower extremity's. Reasonable cervical range of motion motion of the cervical spine. Results & Data Vital Signs (Past 12 Hours) Vital Signs Temp Pulse Pulse Resp BP BP Pulse Ox 07/21/18 12:13 36.3 C L 76 18 103/70 94 07/21/18 08:01 36.5 C 71 17 109/72 98 07/21/18 07:30 73 07/21/18 04:01 36.5 C 77 22 95/56 L 96
[2018-07-21 12:46] LABS: BUN Creatinine Ratio 17.7 (10-20); Calcium 8.4 mg/dl (8.5-10.1); Creatinine Clr Calc Pharmacy 51.8 ml/min; Est GFR (African American) 67.8; Est GFR (Non-African American) 58.5
[2018-07-21 12:53] LABS: Troponin I 0.746 ng/ml (0-0.045)
--- NOTE | 2018-07-21 15:23 | Hospitalist Progress Note ---
Date of Service July 21, 2018 Assessment & Plan (1) Hypotension: - BP now improved, 100's/70's -- was likely related to dehydration in setting of poor PO intake vs. medication induced. - Decrease IV fluids to 80 cc/hr and monitor volume status closely. - Lactic acid level was WNL; U/a negative, BC pending. Influenza by PCR negative. - CXR showed ?pneumonia -- continue Levaquin 750 mg q48hr. - CT of the head showed ?pansinusitis - will also be covered with fluoroquinolone. - Holding home Metoprolol and Nitroglycerin patch. (2) Cervical spine disease: - CT C-spine showed large posterior disc osteophyte complex at C6-C7 likely contributing to compromise of central canal. - MRI showed no acute process within spinal cord. - Ortho spine consulted -- changes are not likely leading to falls at home. (3) Recurrent falls: - Could be secondary to hypotensive episodes vs. other. - CT head was negative. - OT recommending SNF, PT recs are pending. (4) Elevated troponin I level: - Trop level trending up, most recent level was 0.746. - EKG with no acute changes on admission and this morning with very subtle ST depressions in lateral leads--> however, serial troponin throughout the day were fairly flat. - Has h/o elevated trop levels, was previously increased to 2-4 in June 2018. - No indication for cardiology consult as pt. denies acute anginal symptoms. (5) Altered mental status: - May be related to underlying infection (?PNA vs. sinusitis). - Remains disoriented at times. (6) CAD (coronary artery disease): - S/p CABG x 4 and subsequent stents; also had recent NSTEMI this spring. - S/p cardiac cath on 06/09, showed severe multivessel CAD but opted for medical management. - Trending trop as noted above. - Continue aspirin, plavix, statin and ranexa. - Holding Metoprolol and Nitro patch in setting of hypotension. (7) HLD (hyperlipidemia): - Continue statin as prescribed. (8) DM II (diabetes mellitus, type II), controlled: - Has been recently admitted for hypoglycemia following accidental insulin overdose at home. - Most recent A1C was 6.1 in June 2018. - Gluc checks ac/hs; holding SSI coverage. (9) Aortic stenosis: - Moderate on recent cardiac cath. (10) AAA (abdominal aortic aneurysm): - Currently stable, was 4.4 x 4.1 cm on most recent imaging. - Follow as outpatient. (11) KAY (obstructive sleep apnea): - Does not use CPAP at home. (12) CKD (chronic kidney disease), stage III: - Renally dose all meds. (13) Systolic and diastolic CHF, chronic: - Most recent TTE showed EF 45% with wall motion abnormalities. - Monitor I/O's and daily weights. - Receiving IV fluids at 80 cc/hr and holding Metoprolol due to hypotension. (14) Anemia: - Monitor CBC qAM; transfuse for hgb <8 due to cardiac history. - Recent iron studies were c/w anemia of chronic disease. (15) Dementia: - Continue home Aricept as prescribed. (16) Vitamin D deficiency: - Holding home Vit D supplementation. (17) GERD (gastroesophageal reflux disease): - Continue home PPI and Famotidine as prescribed. (18) DVT prophylaxis: - Heparin 5,000 units subQ q8hr. Dispo: PCU/tele. Discharge pending improvement in hypotension and PT/OT recs. Supervising Physician Co-Signing Physician Notes PA Supervision Note: I did not personally see or examine the patient today, but I verified all weber points of AICHA Bourne's assessment and plan with the following exceptions/additions: None Subjective Pt. is doing well overall. He has nasal congestion, non productive cough. Is confused at times per nursing staff. Denies chest pain, SOB. Is ambulating well, denies dizziness. BP now improving with IV fluids. Is eating/drinking as tolerated. Review of Systems Review of Systems: All systems reviewed & are unremarkable except as noted in HPI & below Constitutional: no fever, no chills, no fatigue, no weakness and no anorexia Ear, Nose, Mouth, Throat: + nasal congestion and + nasal discharge; no dizziness and no sore throat Respiratory: no cough, no dyspnea, no dyspnea on exertion and no wheezing Cardiovascular: no chest pain, no palpitations, no lightheadedness, no syncope and no edema Gastrointestinal: no abdominal pain, no nausea and no constipation Genitourinary: no difficulty urinating Musculoskeletal: no back pain and no joint pain Integumentary: no non-healing lesions Allergy / Immunological: no rash Physical Exam Physical Exam: General: Pleasant elderly male. HEENT: NC/AT; PERRLA with EOMI; [place] conjunctiva. Neck: Supple and nontender Cardiac: +3/6 systolic ejection murmur; RRR. Lungs: CTA bilaterally Abdomen: Bowel normoactive X 4; Nontender to palpation Extremities: Warm. No edema present Neuro: No focal weakness Skin: No rash Results & Data Vital Signs (Past 12 Hours) Vital Signs Temp Pulse Pulse Resp BP BP Pulse Ox 07/21/18 12:13 36.3 C L 76 18 103/70 94 07/21/18 08:01 36.5 C 71 17 109/72 98 07/21/18 07:30 73 07/21/18 04:01 36.5 C 77 22 95/56 L 96 Laboratory Results 07/21/18 07/21/18 07/21/18 Range/Units 12:12 11:21 07:35 WBC (4.8-10.8) K/uL RBC (4.7-6.1) M/uL Hgb (14.0-18.0) g/dL POC Hgb (14.0-18.0) g/dl Hct (42-52) % POC Hct (42-52) % MCV (80-100) fL MCH (25-34) pg MCHC (32-36) g/dL RDW Std Deviation (36.4-46.3) fL RDW Coeff of Sandra (11.5-14.5) % Plt Count (130-400) K/uL MPV (7.4-10.4) fL POC Sodium (135-144) mEq/L Sodium 138 (136-145) mmol/L POC Potassium (3.3-5.0) mEq/L Potassium 4.0 (3.5-5.1) mmol/L POC Chloride (101-112) mEq/L Chloride 108 H (98-107) mmol/L Carbon Dioxide 24 (21-32) mmol/L POC Total CO2 (24-31) mEq/l Anion Gap 6.0 (3-11) POC Anion Gap (16-25) mmol/L POC BUN (7-18) mg/dl BUN 20 H (7-18) mg/dl Creatinine 1.15 (0.6-1.4) mg/dl POC Creatinine (0.6-1.3) mg/dl Est Cr Clr Drug Dosing 51.8 ml/min Est GFR ( Amer) 67.8 Est GFR (Non-Af Amer) 58.5 BUN/Creatinine Ratio 17.7 (10-20) Glucose 96 (70-99) mg/dl POC Glucose 87 (70-99) POC Glucose (other) (70-99) mg/dl Calcium 8.4 L (8.5-10.1) mg/dl POC Ioniz Calcium Marcie (1.12-1.32) mmol/l Magnesium (1.8-2.4) mg/dl Total Bilirubin (0.2-1) mg/dl AST (15-37) U/L ALT (12-78) U/L Alkaline Phosphatase (45-117) U/L Troponin I 0.746 H* 0.493 H* (0-0.045) ng/ml Total Protein (6.4-8.2) gm/dl Albumin (3.4-5.0) gm/dl Globulin (2.5-4.0) gm/dl Albumin/Globulin Ratio (0.9-2) Influenza Type A (PCR) (Neg) Influenza Type B (PCR) (Neg) 07/21/18 07/21/18 07/21/18 Range/Units 07:09 02:20 02:08 WBC 6.31 (4.8-10.8) K/uL RBC 3.87 L (4.7-6.1) M/uL Hgb 11.3 L (14.0-18.0) g/dL POC Hgb (14.0-18.0) g/dl Hct 32.9 L (42-52) % POC Hct (42-52) % MCV 85.0 (80-100) fL MCH 29.2 (25-34) pg MCHC 34.3 (32-36) g/dL RDW Std Deviation 45.0 (36.4-46.3) fL RDW Coeff of Sandra 14.5 (11.5-14.5) % Plt Count 225 (130-400) K/uL MPV 10.0 (7.4-10.4) fL POC Sodium (135-144) mEq/L Sodium 139 D (136-145) mmol/L POC Potassium (3.3-5.0) mEq/L Potassium 4.3 D (3.5-5.1) mmol/L POC Chloride (101-112) mEq/L Chloride 109 H (98-107) mmol/L Carbon Dioxide 25 (21-32) mmol/L POC Total CO2 (24-31) mEq/l Anion Gap 5.0 (3-11) POC Anion Gap (16-25) mmol/L POC BUN (7-18) mg/dl BUN 22 H (7-18) mg/dl Creatinine 1.23 D (0.6-1.4) mg/dl POC Creatinine (0.6-1.3) mg/dl Est Cr Clr Drug Dosing 48.5 ml/min Est GFR ( Amer) 62.5 Est GFR (Non-Af Amer) 54.0 BUN/Creatinine Ratio 18.2 (10-20) Glucose 97 (70-99) mg/dl POC Glucose 101 H (70-99) POC Glucose (other) (70-99) mg/dl Calcium 8.4 L (8.5-10.1) mg/dl POC Ioniz Calcium Marcie (1.12-1.32) mmol/l Magnesium 2.0 (1.8-2.4) mg/dl Total Bilirubin 1.5 H (0.2-1) mg/dl AST 18 (15-37) U/L ALT 17 (12-78) U/L Alkaline Phosphatase 78 (45-117) U/L Troponin I 0.032 (0-0.045) ng/ml Total Protein 6.3 L (6.4-8.2) gm/dl Albumin 2.8 L (3.4-5.0) gm/dl Globulin 3.5 (2.5-4.0) gm/dl Albumin/Globulin Ratio 0.8 L (0.9-2) Influenza Type A (PCR) (Neg) Influenza Type B (PCR) (Neg) 07/20/18 07/20/18 07/20/18 Range/Units 21:02 21:00 17:13 WBC (4.8-10.8) K/uL RBC (4.7-6.1) M/uL Hgb (14.0-18.0) g/dL POC Hgb (14.0-18.0) g/dl Hct (42-52) % POC Hct (42-52) % MCV (80-100) fL MCH (25-34) pg MCHC (32-36) g/dL RDW Std Deviation (36.4-46.3) fL RDW Coeff of Sandra (11.5-14.5) % Plt Count (130-400) K/uL MPV (7.4-10.4) fL POC Sodium (135-144) mEq/L Sodium (136-145) mmol/L POC Potassium (3.3-5.0) mEq/L Potassium (3.5-5.1) mmol/L POC Chloride (101-112) mEq/L Chloride (98-107) mmol/L Carbon Dioxide (21-32) mmol/L POC Total CO2 (24-31) mEq/l Anion Gap (3-11) POC Anion Gap (16-25) mmol/L POC BUN (7-18) mg/dl BUN (7-18) mg/dl Creatinine (0.6-1.4) mg/dl POC Creatinine (0.6-1.3) mg/dl Est Cr Clr Drug Dosing ml/min Est GFR ( Amer) Est GFR (Non-Af Amer) BUN/Creatinine Ratio (10-20) Glucose (70-99) mg/dl POC Glucose 111 H (70-99) POC Glucose (other) (70-99) mg/dl Calcium (8.5-10.1) mg/dl POC Ioniz Calcium Marcie (1.12-1.32) mmol/l Magnesium (1.8-2.4) mg/dl Total Bilirubin (0.2-1) mg/dl AST (15-37) U/L ALT (12-78) U/L Alkaline Phosphatase (45-117) U/L Troponin I 0.020 (0-0.045) ng/ml Total Protein (6.4-8.2) gm/dl Albumin (3.4-5.0) gm/dl Globulin (2.5-4.0) gm/dl Albumin/Globulin Ratio (0.9-2) Influenza Type A (PCR) Neg for Influ A (Neg) Influenza Type B (PCR) Neg for Influ B (Neg) 07/20/18 07/20/18 Range/Units 17:10 13:55 WBC (4.8-10.8) K/uL RBC (4.7-6.1) M/uL Hgb (14.0-18.0) g/dL POC Hgb 9.9 L (14.0-18.0) g/dl Hct (42-52) % POC Hct 29 L (42-52) % MCV (80-100) fL MCH (25-34) pg MCHC (32-36) g/dL RDW Std Deviation (36.4-46.3) fL RDW Coeff of Sandra (11.5-14.5) % Plt Count (130-400) K/uL MPV (7.4-10.4) fL POC Sodium 135 (135-144) mEq/L Sodium (136-145) mmol/L POC Potassium 3.7 (3.3-5.0) mEq/L Potassium (3.5-5.1) mmol/L POC Chloride 98 L (101-112) mEq/L Chloride (98-107) mmol/L Carbon Dioxide (21-32) mmol/L POC Total CO2 23 L (24-31) mEq/l Anion Gap (3-11) POC Anion Gap 18.0 (16-25) mmol/L POC BUN 26 H (7-18) mg/dl BUN (7-18) mg/dl Creatinine (0.6-1.4) mg/dl POC Creatinine 1.6 H (0.6-1.3) mg/dl Est Cr Clr Drug Dosing ml/min Est GFR ( Amer) Est GFR (Non-Af Amer) BUN/Creatinine Ratio (10-20) Glucose (70-99) mg/dl POC Glucose (70-99) POC Glucose (other) 140 H (70-99) mg/dl Calcium (8.5-10.1) mg/dl POC Ioniz Calcium Marcie 1.10 L (1.12-1.32) mmol/l Magnesium (1.8-2.4) mg/dl Total Bilirubin (0.2-1) mg/dl AST (15-37) U/L ALT (12-78) U/L Alkaline Phosphatase (45-117) U/L Troponin I < 0.015 (0-0.045) ng/ml Total Protein (6.4-8.2) gm/dl Albumin (3.4-5.0) gm/dl Globulin (2.5-4.0) gm/dl Albumin/Globulin Ratio (0.9-2) Influenza Type A (PCR) (Neg) Influenza Type B (PCR) (Neg) (1) CAD (coronary artery disease) Associated angina: with unstable angina Coronary Disease-Associated Artery/Lesion type: [place] artery [place] vs. transplanted heart: [place] heart Qualified Code(s): I25.110 - Atherosclerotic heart disease of [place] coronary artery with unstable angina pectoris (2) AAA (abdominal aortic aneurysm) Presence of rupture: without rupture Qualified Code(s): I71.4 - Abdominal aortic aneurysm, without rupture (3) Aortic stenosis Cardiac valve disease etiology: etiology unspecified Qualified Code(s): I35.0 - Nonrheumatic aortic (valve) stenosis (4) HLD (hyperlipidemia) Hyperlipidemia type: pure hypercholesterolemia Qualified Code(s): E78.00 - Pure hypercholesterolemia, unspecified; E78.0 - Pure hypercholesterolemia (5) Altered mental status Altered mental status type: unspecified Qualified Code(s): R41.82 - Altered mental status, unspecified
[2018-07-21] MEDS: ATORVASTATIN 40 MG TAB PO SCH (21:10)
[2018-07-22] MEDS: SODIUM CHLORIDE 0.9% 1000ML 1,000 ML IV SCH (03:28)
[2018-07-22] MEDS: HEPARIN SOD 5,000 UNIT/0.5 ML VIAL SQ SCH ×3 (05:02→21:32)
[2018-07-22] MEDS: PANTOprazole 40 MG TAB PO SCH (07:58)
[2018-07-22] MEDS: FAMOTIDINE 20 MG TAB PO SCH ×2 (07:58→20:53)
[2018-07-22] MEDS: CLOPIDOGREL BISULFATE 75 MG TAB PO SCH (07:58)
[2018-07-22] MEDS: DONEPEZIL HCL 10 MG TAB PO SCH (07:58)
[2018-07-22] MEDS: ASPIRIN 81 MG ECTAB PO SCH (07:58)
[2018-07-22] MEDS: RANOLAZINE 500 MG ER TAB PO SCH ×2 (07:59→20:53)
[2018-07-22 08:05] LABS: Hematocrit (blood only) 29.3 % (42-52); Mean Corpuscular Hgb Conc 34.1 g/dL (32-36); Mean Corpuscular Volume 84.2 fL (80-100); Platelet Count 261 K/uL (130-400); RDW Coefficient of Variation 14.6 % (11.5-14.5); RDW Standard Deviation 45.1 fL (36.4-46.3); Red Blood Count 3.48 M/uL (4.7-6.1); White Blood Count 5.34 K/uL (4.8-10.8)
[2018-07-22 09:24] LABS: Albumin Level 2.5 gm/dl (3.4-5.0); BUN Creatinine Ratio 14.2 (10-20); Bilirubin Direct 0.3 mg/dl (0-0.2); Calcium 8.3 mg/dl (8.5-10.1); Creatinine Clr Calc Pharmacy 52.8 ml/min; Est GFR (African American) 69.3; Est GFR (Non-African American) 59.8; Potassium 3.6 mmol/L (3.5-5.1)
[2018-07-22 09:27] LABS: Total Protein 6.1 gm/dl (6.4-8.2)
[2018-07-22] MEDS ORDERED: HYDROCORTISONE HC 2.5% CRM 30GM TUBE EXT PRN (10:25)
[2018-07-22] MEDS: levoFLOXacin 750 MG TAB PO SCH (12:29)
--- NOTE | 2018-07-22 12:58 | Hospitalist Progress Note ---
Date of Service July 22, 2018 Assessment & Plan (1) Hypotension: - BP remains low but stable -- likely related to dehydration in setting of poor PO intake & partially medication induced. -A.m. cortisol was tested in the hospital a few weeks ago and was normal at 18 -Maintenance fluids were discontinued but he was given a 500 mL bag of normal saline later in the day at 125 an hour for worsening hypotension and had improvement in blood pressure - Lactic acid level was WNL; U/a negative, BC negative. Influenza by PCR negative. - CXR showed ?pneumonia -- continue Levaquin 750 mg q48hr. - CT of the head showed ?pansinusitis - will also be covered with fluoroquinolone. -Cannot resume home Metoprolol due to hypotension especially in the setting of aortic stenosis as per recommendation of cardiology (2) Rectal bleeding: - Noted overnight -- denies h/o GI bleeding in past; may be related to hemorrhoids vs. other. - Hemoglobin trending down -- is likely related to IV fluids. - Will start Senokot S BID scheduled with MOM prn to prevent constipation. - FOBT is pending collection. - Anusol cream prn hemorrhoids -- consider suppositories for internal hemorrhoids. (3) Cervical spine disease: - CT C-spine showed large posterior disc osteophyte complex at C6-C7 likely contributing to compromise of central canal. - MRI showed no acute process within spinal cord. - Ortho spine consulted -- changes are not likely leading to falls at home. (4) Recurrent falls: - Could be secondary to hypotensive episodes vs. other. - CT head was negative. - Will need SNF placement at discharge. (5) Elevated troponin I level: - Trop level peaked at 0.7 then trended down; repeat trop was 4 today. - Likely related demand ischemia in setting of dehydration and hypotension in patient with known CAD. - EKG with very subtle ST depressions in lateral leads on 07/21, increased ST depression on EKG this morning. - Has h/o elevated trop levels, was previously increased to >20 in June 2018. - Limited TTE showed mildly reduced systolic function, akinetic septum and mildly hypokinetic basal inferior wall (unchanged compared to prior study) - Will consult cardiology for evaluation. (6) Metabolic encephalopathy: - May be related to underlying infection (?PNA vs. sinusitis) vs. hospital delirium with sundowning vs. dementia. (7) CAD (coronary artery disease): - S/p CABG x 4 and subsequent stents; also had recent NSTEMI this spring. - S/p cardiac cath on 06/09, showed severe multivessel CAD but opted for medical management. - Trop was mildly elevated as noted above. - Continue aspirin, plavix, statin and ranexa. -Cannot resume home Metoprolol due to hypotension as per cardiology -D/c Nitro patch. (8) HLD (hyperlipidemia): - Continue statin as prescribed. (9) DM II (diabetes mellitus, type II), controlled: - Has been recently admitted for hypoglycemia following accidental insulin overdose at home. -Blood sugars here remain around 100 in the morning - Most recent A1C was 6.1 in June 2018. -He does not need any treatment for this - Will d/c gluc checks. (10) Aortic stenosis: - Moderate on recent cardiac cath. -Avoid hypotension (11) AAA (abdominal aortic aneurysm): - Currently stable, was 4.4 x 4.1 cm on most recent imaging. - Follow as outpatient. (12) KAY (obstructive sleep apnea): - Does not use CPAP at home. (13) CKD (chronic kidney disease), stage III: - Renally dose all meds. 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 - Resume home Metoprolol as prescribed. (15) Anemia: - Monitor CBC qAM; transfuse for hgb <8 due to cardiac history. - Recent iron studies were c/w anemia of chronic disease. (16) Dementia: - Continue home Aricept as prescribed. - Concern for acute hospital delirium as noted above. (17) Vitamin D deficiency: - Holding home Vit D supplementation. (18) GERD (gastroesophageal reflux disease): - Continue home PPI and Famotidine as prescribed. (19) DVT prophylaxis: - Heparin 5,000 units subQ q8hr. Dispo: Med/surg with tele. Discharge likely to rehab once clinically stable. Supervising Physician Co-Signing Physician Notes PA Supervision Note: I did not personally see or examine the patient today, but I verified all weber points of AICHA Bourne's assessment and plan with the following exceptions/additions: None Subjective Pt. is doing well overall. He remains confused at times but is oriented throughout most of the day. Pt. had bleeding with BM last night -- he reports being constipated for period of time. Has internal hemorrhoids but has never had issues with rectal bleeding in the past. Will order FOBT for evaluation. Denies chest pain, SOB, dizziness, N/V, abd pain. PT/OT ordered -- pt. is agreeable to inpt rehab. Review of Systems Review of Systems: All systems reviewed & are unremarkable except as noted in HPI & below Constitutional: no fever, no chills, no fatigue, no weakness and no anorexia Respiratory: no cough, no dyspnea, no dyspnea on exertion and no wheezing Cardiovascular: no chest pain, no palpitations, no lightheadedness, no syncope and no edema Gastrointestinal: + constipation; no abdominal pain, no nausea, no vomiting and no diarrhea/loose stools Genitourinary: no difficulty urinating Musculoskeletal: no back pain and no joint pain Integumentary: no non-healing lesions Neurologic: + confusion Allergy / Immunological: no rash Physical Exam Physical Exam: General: Pleasant elderly male. HEENT: NC/AT; PERRLA with EOMI; [place] conjunctiva. Neck: Supple and nontender Cardiac: +3/6 systolic ejection murmur; RRR. Lungs: CTA bilaterally Abdomen: Bowel normoactive X 4; Nontender to palpation Extremities: Warm. No edema present Neuro: No focal weakness Skin: No rash Results & Data Vital Signs (Past 12 Hours) Vital Signs Temp Pulse Pulse Resp BP BP Pulse Ox 07/22/18 12:00 36.4 C L 18 104/68 07/22/18 07:39 79 07/22/18 07:00 36.6 C 80 18 107/67 97 07/22/18 03:24 36.6 C 77 18 99/61 L 95 Laboratory Results 07/22/18 07/22/18 07/22/18 Range/Units 07:40 07:40 07:37 WBC 5.34 (4.8-10.8) K/uL RBC 3.48 L (4.7-6.1) M/uL Hgb 10.0 L (14.0-18.0) g/dL Hct 29.3 L (42-52) % MCV 84.2 (80-100) fL MCH 28.7 (25-34) pg MCHC 34.1 (32-36) g/dL RDW Std Deviation 45.1 (36.4-46.3) fL RDW Coeff of Sandra 14.6 H (11.5-14.5) % Plt Count 261 (130-400) K/uL MPV 10.0 (7.4-10.4) fL Sodium 140 (136-145) mmol/L Potassium 3.6 (3.5-5.1) mmol/L Chloride 112 H (98-107) mmol/L Carbon Dioxide 22 (21-32) mmol/L Anion Gap 6.0 (3-11) BUN 16 (7-18) mg/dl Creatinine 1.13 (0.6-1.4) mg/dl Est Cr Clr Drug Dosing 52.8 ml/min Est GFR ( Amer) 69.3 Est GFR (Non-Af Amer) 59.8 BUN/Creatinine Ratio 14.2 (10-20) Glucose 103 H (70-99) mg/dl POC Glucose 100 H (70-99) Calcium 8.3 L (8.5-10.1) mg/dl Total Bilirubin 1.0 D (0.2-1) mg/dl Direct Bilirubin 0.3 H (0-0.2) mg/dl AST 27 (15-37) U/L ALT 16 (12-78) U/L Alkaline Phosphatase 71 (45-117) U/L Troponin I (0-0.045) ng/ml Total Protein 6.1 L (6.4-8.2) gm/dl Albumin 2.5 L (3.4-5.0) gm/dl 07/21/18 07/21/18 07/21/18 Range/Units 20:44 19:05 18:51 WBC (4.8-10.8) K/uL RBC (4.7-6.1) M/uL Hgb (14.0-18.0) g/dL Hct (42-52) % MCV (80-100) fL MCH (25-34) pg MCHC (32-36) g/dL RDW Std Deviation (36.4-46.3) fL RDW Coeff of Sandra (11.5-14.5) % Plt Count (130-400) K/uL MPV (7.4-10.4) fL Sodium (136-145) mmol/L Potassium (3.5-5.1) mmol/L Chloride (98-107) mmol/L Carbon Dioxide (21-32) mmol/L Anion Gap (3-11) BUN (7-18) mg/dl Creatinine (0.6-1.4) mg/dl Est Cr Clr Drug Dosing ml/min Est GFR ( Amer) Est GFR (Non-Af Amer) BUN/Creatinine Ratio (10-20) Glucose (70-99) mg/dl POC Glucose 118 H 130 H (70-99) Calcium (8.5-10.1) mg/dl Total Bilirubin (0.2-1) mg/dl Direct Bilirubin (0-0.2) mg/dl AST (15-37) U/L ALT (12-78) U/L Alkaline Phosphatase (45-117) U/L Troponin I 0.672 H* (0-0.045) ng/ml Total Protein (6.4-8.2) gm/dl Albumin (3.4-5.0) gm/dl 07/21/18 Range/Units 16:33 WBC (4.8-10.8) K/uL RBC (4.7-6.1) M/uL Hgb (14.0-18.0) g/dL Hct (42-52) % MCV (80-100) fL MCH (25-34) pg MCHC (32-36) g/dL RDW Std Deviation (36.4-46.3) fL RDW Coeff of Sandra (11.5-14.5) % Plt Count (130-400) K/uL MPV (7.4-10.4) fL Sodium (136-145) mmol/L Potassium (3.5-5.1) mmol/L Chloride (98-107) mmol/L Carbon Dioxide (21-32) mmol/L Anion Gap (3-11) BUN (7-18) mg/dl Creatinine (0.6-1.4) mg/dl Est Cr Clr Drug Dosing ml/min Est GFR ( Amer) Est GFR (Non-Af Amer) BUN/Creatinine Ratio (10-20) Glucose (70-99) mg/dl POC Glucose 110 H (70-99) Calcium (8.5-10.1) mg/dl Total Bilirubin (0.2-1) mg/dl Direct Bilirubin (0-0.2) mg/dl AST (15-37) U/L ALT (12-78) U/L Alkaline Phosphatase (45-117) U/L Troponin I (0-0.045) ng/ml Total Protein (6.4-8.2) gm/dl Albumin (3.4-5.0) gm/dl (1) CAD (coronary artery disease) Associated angina: with unstable angina Coronary Disease-Associated Arter y/Lesion type: [place] artery [place] vs. transplanted heart: creek heart Qualified Code(s): I25.110 - Atherosclerotic heart disease of [place] coronary artery with unstable angina pectoris (2) AAA (abdominal aortic aneurysm) Presence of rupture: without rupture Qualified Code(s): I71.4 - Abdominal aortic aneurysm, without rupture (3) Aortic stenosis Cardiac valve disease etiology: etiology unspecified Qualified Code(s): I35.0 - Nonrheumatic aortic (valve) stenosis (4) HLD (hyperlipidemia) Hyperlipidemia type: pure hypercholesterolemia Qualified Code(s): E78.00 - Pure hypercholesterolemia, unspecified; E78.0 - Pure hypercholesterolemia
[2018-07-22] MEDS ORDERED: METOPROLOL SUCC 25MG EXT REL TAB PO SCH (14:00)
[2018-07-22] MEDS ORDERED: PERFLUTREN LIPID MICROSPHERE (DEFINITY) IV ONE (14:40)
--- NOTE | 2018-07-22 16:26 | Cardiology Consultation ---
Date of Consultation July 22, 2018 Assessment & Plan (1) Elevated troponin I level: Recently he has had several episodes of significant troponin elevation, today he had 1 of these episodes with a troponin of over 4. Shortly after that troponin was measured I talked to him and he seems to be completely asymptomatic. His electrocardiogram suggests some ischemic changes around this time as well. I think therefore that he was having myocardial ischemia but he was not feeling it. It is certainly not an ST segment elevation myocardial infarction, it has not affected his cardiac function as assessed by an echocardiogram this afternoon and he is asymptomatic. The most likely cause of his hypotension which is not severe but in the setting of his severe coronary artery disease as well as his aortic stenosis may be sufficient to cause some degree of ischemia. I would not pursue invasive evaluation but we should try not to allow his blood pressure to drop if possible. (2) CAD (coronary artery disease): He has known coronary artery disease as well as prior bypass surgery and his anatomy was defined by catheterization earlier this year. It was felt that intervention would be too risky and therefore medical therapy was used. I doubt his coronary disease has progressed any significant amount in the last few months and I would not perform further evaluation at this time. (3) Hypotension: He had several episodes of low blood pressure (into the 90s), the cause is not obvious. With his aortic stenosis his left ventricle is pumping against a higher pressure than what we are recording in his systemic circulation yet his perfusion pressure is based on what we are recording. This will result in decreased coronary perfusion. He is on low-dose beta-blockade and although that may be beneficial for ischemia I would be inclined to stop it. Hopefully we will not need a medication for ischemia. If so that may be problematic. We could consider drugs like Florinef to increase his blood pressure, but again that would be relatively contraindicated with his ischemic heart disease. I would like to see his blood pressure come up somewhat. History of Present Illness Reason for Consultation: Elevated troponin Attending Physician: Fariba Fong MD History of Present Illness This is a very pleasant 82-year-old gentleman who has a history of diabetes, hypertension, hyperlipidemia, dementia (although he is quite conversational), abdominal aortic aneurysm and aortic stenosis. He also has moderate aortic stenosis. He also has coronary artery disease and has had bypass surgery in the past. He had catheterization on June 09, 2018 where he had severe [place] disease identified as well as an occluded saphenous vein graft to the diagonal, occluded saphenous vein graft to the PDA and posterolateral. Medical therapy was recommended. He was admitted with hypoglycemia and altered mental status on June 22, 2018, his troponin increased to a peak of 19 on June 23, 2018 and then dropped from there. On June 28, 2018 it had dropped to just under 2. He is now readmitted on July 20, 2018, his initial troponins were not significantly elevated however they started to climb on July 21, 2018 (his fourth measurement) and have continued to climb and this afternoon at 1430 his troponin was 4.45. He has had intermittent somewhat low blood pressure (the 90s). He did have some ST-T abnormalities suggestive of possible ischemia. An echocardiogram was done this afternoon and he does have mildly decreased left ventricular function (ejection fraction 45 to 50%) with wall motion abnormalities however it was felt not to be much different than her prior echocardiogram. I saw him in his room and he is sitting there comfortably, he denies any symptoms of chest discomfort, shortness of breath, lightheadedness or any other complaints. Even though he does have dementia and probably a poor memory at the moment he seems quite comfortable. Allergies Allergy/AdvReac Type Severity Reaction Status Date / Time iodine Allergy Severe Unknown Verified 07/20/18 14:42 Penicillins Allergy Severe AMOXIL = Verified 07/20/18 14:42 ANAPHYLACTIC RXN clavulanic acid Allergy Unknown Unknown Verified 07/20/18 14:42 morphine AdvReac Mild VOMITING Verified 07/20/18 14:42 Home Medications Home Medications Medication Instructions Recorded Confirmed Type atorvastatin 40 mg PO HS 02/01/18 07/20/18 History donepezil [Aricept] 10 mg PO DAILY 02/01/18 07/20/18 History nitroglycerin [Nitrostat] 0.4 mg SUBLINGUAL DIRECTED PRN 02/01/18 07/20/18 History aspirin 81 mg PO DAILY 06/09/18 07/20/18 History cholecalciferol (vitamin D3) 1,000 unit PO DAILY 06/09/18 07/20/18 History [Vitamin D3] clopidogrel 75 mg PO DAILY 06/09/18 07/20/18 History cyanocobalamin (vitamin B-12) 1,000 mcg PO DAILY 06/09/18 07/20/18 History [Vitamin B-12] famotidine 20 mg PO BID 06/09/18 07/20/18 History pantoprazole 40 mg PO DAILY 06/09/18 07/20/18 History ranolazine [Ranexa] 500 mg PO Q12 06/22/18 07/20/18 History nitroglycerin [Nitro-Dur] 1 patch TRANSDERMAL ONAMOFFPM 06/27/18 07/20/18 History metoprolol succinate 12.5 mg PO DAILY #30 tab 07/02/18 07/20/18 Rx Patient History Medical History CAD (coronary artery disease) Vitamin D deficiency PVD (peripheral vascular disease) GERD (gastroesophageal reflux disease) HLD (hyperlipidemia) DM II (diabetes mellitus, type II), controlled Anemia Aortic stenosis AAA (abdominal aortic aneurysm) KAY (obstructive sleep apnea) Dementia CKD (chronic kidney disease), stage III HTN (hypertension), benign Chest pain (Acute) Ankle pain, right (Acute) Chronic combined systolic and diastolic heart failure Ischemic cardiomyopathy Surgical History History of quadruple bypass H/O heart artery stent Family History Other Family history non-contributory Social History Preferred Language: Mongolian Communication Ability: Effective Beliefs That Will Affect Care: None marital status: Current Living Situation: Spouse Other Information That Helps Us Care for You: No Feels Safe at Home: Yes Safety Concerns: Feels Safe At This Time Smoking Status: Former smoker Second Hand Exposure: No Hx Alcohol Use: No Hx Substance Use: No Physical Exam Physical Exam: Constitutional: Alert, cooperative and in no distress. HEENT: Unremarkable Neck: No jugular venous distention, carotid pulses are normal and equal bilaterally without bruits. Pulmonary: Clear to auscultation bilaterally. Cardiac: Regular rhythm with a grade 2/6 crescendo decrescendo systolic murmur at the base, no gallop or rub. Abdomen: Soft, nontender with normal bowel sounds. Extremities: No edema. Distal pulses intact. Neurologic: No focal findings. Gait is steady. Skin: No rash, ecchymoses or petechiae. Results & Data Vital Signs (Past 12 Hours) Vital Signs Temp Pulse Pulse Resp BP BP Pulse Ox 07/22/18 15:11 36.4 C L 81 108/71 07/22/18 14:52 89/54 L 07/22/18 12:00 36.4 C L 18 104/68 07/22/18 07:39 79 07/22/18 07:00 36.6 C 80 18 107/67 97 Diagnostic Findings Telemetry: Sinus rhythm with PACs. Possible wandering atrial pacemaker. Rate well controlled. His electrocardiogram on admission on July 20, 2018 shows sinus rhythm with some nonspecific inferolateral ST-T abnormalities and a incomplete right bundle branch block. The next day he remained in sinus rhythm but there was some suggestion of lateral ST depression and slight elevation in lead III. This morning he is in sinus rhythm and he does not have the lateral ST depression, the slight elevation in lead III is still present and this appears more like his admission electrocardiogram. (1) CAD (coronary artery disease) Coronary Disease-Associated Artery/Lesion type: [place] artery [place] vs. transplanted heart: [place] heart Associated angina: with unstable angina Qualified Code(s): I25.110 - Atherosclerotic heart disease of [place] coronary artery with unstable angina pectoris
[2018-07-22] MEDS ORDERED: SODIUM CHLORIDE 0.9% 1000ML 500 ML IV ONE (17:33)
[2018-07-22] MEDS: ATORVASTATIN 40 MG TAB PO SCH (20:53)
[2018-07-22] MEDS: DOCUSATE SODIUM/SENNA 50/8.6MG TAB PO SCH (20:53)
--- NOTE | 2018-07-22 22:14 | Progress Note ---
Date of Service July 22, 2018 Received a page from the bedside nurse that the patient was having some chest pain. A stat EKG and troponin were ordered. Patient's blood pressure was 106/66 and his echocardiogram did not mention any RV issues, so two nitroglycerin were given. Saw patient at bedside. He is awake, very pleasantly conversational, and says that his chest pain has completely resolved. He denies any shortness of breath or other acute concerns at this time. Exam: - Regular rhythm, 2 out of 6 systolic murmur, lungs clear to auscultation bilaterally. -EKG is NSR, rate 82, without any ST elevations. Plan: - Cardiology plan mentions prior recommendation of no further evaluation as of earlier today. - Continue to monitor overnight for now. Nic Goyal, PGY2 Overnight call Results & Data Vital Signs (Past 12 Hours) Vital Signs Temp Pulse Resp BP BP Pulse Ox 07/22/18 19:28 36.7 C 75 20 106/66 97 07/22/18 15:11 36.4 C L 81 108/71 07/22/18 14:52 89/54 L 07/22/18 12:00 36.4 C L 18 104/68
[2018-07-22] MEDS: NITROGLYCERIN SL 0.4 MG/TAB TAB SL PRN (22:54)
[2018-07-23] MEDS ORDERED: ONDANSETRON INJ 2 MG/ML 2 ML VIAL IV ONE
[2018-07-23] MEDS ORDERED: MoRPHine SULFATE 4 MG/ML 1 ML CARP\\VIAL IV STA
[2018-07-23] MEDS ORDERED: NITROGLYCERIN 2% OINTMENT 30GM TUBE EXT STA (01:39)
[2018-07-23 01:57] LABS: Basophils # (auto) 0.02 K/uL (0-0.2); Basophils % (auto) 0.3 %; Eosinophils # (auto) 0.11 K/uL (0-0.5); Eosinophils % (auto) 1.7 %; Hematocrit (blood only) 28.7 % (42-52); Hemoglobin 10.2 g/dL (14.0-18.0); Immature Granulocytes # (auto) 0.04 K/uL (0.00-0.02); Immature Granulocytes % (auto) 0.6 %; Lymphocytes # (auto) 2.11 K/uL (1.2-3.4); Lymphocytes % (auto) 32.2 %; Mean Corpuscular Volume 83.4 fL (80-100); Mean Platelet Volume 9.2 fL (7.4-10.4); Monocytes # (auto) 0.67 K/uL (0.11-0.59); Monocytes % (auto) 10.2 %; Platelet Count 287 K/uL (130-400); RDW Coefficient of Variation 14.8 % (11.5-14.5); RDW Standard Deviation 45.1 fL (36.4-46.3); Red Blood Count 3.44 M/uL (4.7-6.1); White Blood Count 6.55 K/uL (4.8-10.8)
[2018-07-23 02:02] LABS: Mean Corpuscular Hgb Conc 35.5 g/dL (32-36)
[2018-07-23 02:08] LABS: Partial Thromboplastin Ratio 1.2; Partial Thromboplastin Time 32.9 Seconds (21.0-31.0); Prothrombin Time 10.7 Seconds (9.0-12.0)
[2018-07-23] MEDS ORDERED: HEPARIN IV BOLUS 6,000 UNITS in SYRINGE 0 ML IV ONE (02:15)
[2018-07-23] MEDS: Heparin Adult STANDARD Wt-Based Dextrose 5% 25,000 units/500 mL IV SCH (02:40)
[2018-07-23 09:34] LABS: Hematocrit (blood only) 29.8 % (42-52); Hemoglobin 10.3 g/dL (14.0-18.0); Mean Corpuscular Hgb Conc 34.6 g/dL (32-36); Mean Corpuscular Volume 84.7 fL (80-100); Mean Platelet Volume 9.9 fL (7.4-10.4); Platelet Count 306 K/uL (130-400); RDW Coefficient of Variation 14.8 % (11.5-14.5); RDW Standard Deviation 45.9 fL (36.4-46.3); Red Blood Count 3.52 M/uL (4.7-6.1); White Blood Count 6.66 K/uL (4.8-10.8)
[2018-07-23] MEDS: DONEPEZIL HCL 10 MG TAB PO SCH (09:42)
[2018-07-23] MEDS: ASPIRIN 81 MG ECTAB PO SCH (09:42)
[2018-07-23] MEDS: FAMOTIDINE 20 MG TAB PO SCH ×2 (09:43→21:16)
[2018-07-23] MEDS: DOCUSATE SODIUM/SENNA 50/8.6MG TAB PO SCH ×2 (09:44→21:15)
[2018-07-23] MEDS: PANTOprazole 40 MG TAB PO SCH (09:44)
[2018-07-23] MEDS: RANOLAZINE 500 MG ER TAB PO SCH ×2 (09:44→21:14)
[2018-07-23] MEDS: CLOPIDOGREL BISULFATE 75 MG TAB PO SCH (10:02)
[2018-07-23 10:12] LABS: BUN Creatinine Ratio 10.7 (10-20); Calcium 8.8 mg/dl (8.5-10.1); Creatinine Clr Calc Pharmacy 46.9 ml/min; Est GFR (African American) 60.2; Est GFR (Non-African American) 51.9; Potassium 3.3 mmol/L (3.5-5.1)
[2018-07-23] MEDS ORDERED: POTASSIUM CHLORIDE 20 MEQ TABCR PO STA (10:38)
[2018-07-23] MEDS: MAGNESIUM HYDROXIDE SUSP 30 ML UDC PO PRN (11:32)
[2018-07-23 12:30] LABS: Partial Thromboplastin Ratio > 5.1
[2018-07-23 12:40] LABS: Partial Thromboplastin Time > 139.0 Seconds (21.0-31.0)
--- NOTE | 2018-07-23 14:00 | Cardiology Progress Note ---
Date of Service July 23, 2018 Assessment & Plan (1) Non-ST elevation CO (NSTEMI): 2. Ischemic cardiomyopathy 3. Hypotension 4. Moderate 5. DM with recurrent hypoglycemia 6. Dementia 7. Anemia 8. Sinusitis Patient with multiple significant troponin elevations in June in the setting of acute illness/hypoglycemia. Was seen recently in the outpatient setting and was chest pain free on home antianginal therapy with nitropatch, Toprol 12.5 and ranexa 500 BID. Readmitted with falls in the setting of hypotension. toprol/nitro held and now +5L over admit with improved BP. Again with troponin rise and fall and now episode of CP occurring at rest last night. Reviewed recent cath images, repeat echo and ECGs. Left sided qagan [place] vessels completely occluded. WILNER to LAD patent and KENNEDY to small OM patent. Remainder of LCx system fills via right to left collaterals. RCA stents patent but ostium of PDA occluded. PDA fills via flow from Y graft from posterior AV extension. Y graft has a severe focal stenosis. Recurrent troponin/symptoms may be in part secondary to PAV to PDA Y graft focal stenosis particularly in the setting of worsened inferior wall motion on echo by my eye. Intervention to this graft would be very complex but don't feel risk is prohibitive. In setting of limited tolerance to antianginal therapy feel worthwhile to attempt intervention to Y graft. Patient ate breakfast and lunch today so will plan to try on Thursday. In the interim continue heparin infusion, ASA/clopidogrel and statin. Can increase ranexa to 1000mg BID. Please keep NPO thursday midnight. Subjective Episode of severe chest pain overnight requiring multiple nitro and morphine. ECG with more pronounced lateral ST changes. Started on heparin infusion. Today feeling well. No chest pain. good appetite. No presyncope. No other new concerns. Tele reviewed -- PACs, no obvious atrial fib. Review of Systems Review of Systems: All systems reviewed & are unremarkable except as noted in HPI & below Physical Exam Constitutional: well developed Eyes: PERRL, conjunctivae normal, anicteric sclerae Respiratory: normal respiratory effort, lungs clear to auscultation Cardiovascular: RRR, no murmur, no edema Skin: LE cool with diminished pulses Psychiatric: A+Ox3, euthymic affect Results & Data Vital Signs (Past 12 Hours) Vital Signs Temp Pulse Resp BP BP Pulse Ox 07/23/18 11:45 36.4 C L 75 18 96/54 L 94 07/23/18 07:50 36.3 C L 88 20 104/67 98 07/23/18 03:36 36.5 C 81 20 105/69 98
[2018-07-23] MEDS ORDERED: SODIUM CHLORIDE 0.65% NA SOLN 45 ML (OCEAN) ONE (14:38)
[2018-07-23 14:46] LABS: Partial Thromboplastin Ratio > 5.1
[2018-07-23 14:56] LABS: Partial Thromboplastin Time > 139.0 Seconds (21.0-31.0)
[2018-07-23 16:28] LABS: Partial Thromboplastin Ratio 3.1
--- NOTE | 2018-07-23 16:36 | Hospitalist Progress Note ---
Date of Service July 23, 2018 Assessment & Plan (1) NSTEMI (non-ST elevated myocardial infarction): - Trop peaked at 4 on 07/22 then started to trend down. - Most recent EKG showed more pronounced lateral ST changes - Limited TTE showed mildly reduced systolic function, akinetic septum and mi ldly hypokinetic basal inferior wall. - Cardiology consulted, appreciate their input. - Plan for intervention to PAV to PDA Y graft in setting of stenosis and worsened inferior wall motion on TTE -- will need to be NPO Thursday night. - Continue Heparin infusion over the weekend. - Continue ASA/Plavix, statin; will increase Ranexa to 1,000 mg BID. (2) Elevated troponin I level: - As noted above. (3) Hypotension: - BP remains low, cannot tolerate beta blockade. - Avoid significant hypotension in setting of aortic stenosis; pt. is a significant net positive due to aggressive IV fluids. - Infectious work up negative with exception of ?pneumonia and ?pansinusitis -- continue Levaquin 750 mg q48hr for empiric coverage. - Previous AM cortisol level was WNL. (4) CAD (coronary artery disease): - S/p CABG x 4 and subsequent stents; also had recent NSTEMI this spring. - S/p cardiac cath on 06/09, showed severe multivessel CAD but opted for medical management. - Cardiac work up as noted above. - Continue aspirin, plavix, statin and ranexa. - Beta blockade contraindicated due to hypotension, will likely need to be permanently d/c'ed. - Cannot tolerate nitropaste/nitropatch due to hypotension. (5) Rectal bleeding: - Denies h/o GI bleeding in past; was likely related to internal hemorrhoids. - Hemoglobin has been stable, monitor daily. FOBT was negative. - Senokot S BID scheduled; MOM prn. - Anusol cream prn hemorrhoids. (6) Cervical spine disease: - CT C-spine showed large posterior disc osteophyte complex at C6-C7 likely contributing to compromise of central canal. - MRI showed no acute process within spinal cord. - Ortho spine consulted -- changes are not likely leading to falls at home. (7) Recurrent falls: - Could be secondary to hypotensive episodes. - CT head was negative. - Will likely need SNF placement at discharge. (8) Metabolic encephalopathy: - May be related to underlying infection (?PNA vs. sinusitis) vs. hospital delirium with owning vs. dementia. (9) HLD (hyperlipidemia): - Continue statin as prescribed. (10) DM II (diabetes mellitus, type II), controlled: - Has been recently admitted for hypoglycemia following accidental insulin overdose at home. - Most recent A1C was 6.1 in June 2018. - Does not require treatment, d/c'ed gluc checks. (11) Aortic stenosis: - Moderate on recent cardiac cath. - Avoid hypotension (see above) (12) AAA (abdominal aortic aneurysm): - Currently stable, was 4.4 x 4.1 cm on most recent imaging. - Follow as outpatient. (13) KAY (obstructive sleep apnea): - Does not use CPAP at home. (14) CKD (chronic kidney disease), stage III: - Renally dose all meds. (15) Systolic and diastolic CHF, chronic: - Most recent TTE showed EF 45% with wall motion abnormalities; repeat TTE is unchanged. - Monitor I/O's and daily weights. - Cannot tolerate beta blockers due to hypotension. (16) Anemia: - Monitor CBC qAM; transfuse for hgb <8 due to cardiac history. - Recent iron studies were c/w anemia of chronic disease. (17) Dementia: - Continue home Aricept as prescribed. - Concern for acute hospital delirium as noted above. (18) Vitamin D deficiency: - Holding home Vit D supplementation. (19) GERD (gastroesophageal reflux disease): - Continue home PPI and Famotidine as prescribed. (20) Electrolyte abnormality: - K level 3.3 - ordered KCl 40 PO. (21) DVT prophylaxis: - Heparin infusion. Dispo: Med/surg with tele. Plan for cardiac intervention on Thursday07/26/18. Supervising Physician Co-Signing Physician Notes Attending Attestation: Chart reviewed in detail, care plan d/w AICHA Bourne. I agree w/ the weber components of her documentation. Complicated 82yo male with NSTEMI and aortic stenosis. Currently on heparin infusion for NSTEMI. Continues with chest pain despite cardiac appropriate medications. Hypotension compounding the above issues. Cath planned for Thursday. Continue supportive care. Dave Conway MD Subjective Pt. developed chest pain last night -- received Nitro x 2. Had recurrent chest pain, received Nitro x1, Morphine IV and Nitropaste was applied. Chest pain is now resolved. Cardiology following, has worsening ST changes on EKG. Plan for procedure on Thursday. Will continue to hold beta blockade as pt. cannot tolerate due to hypotension. Will d/c nitropaste as well. Review of Systems Review of Systems: All systems reviewed & are unremarkable except as noted in HPI & below Constitutional: no fever, no chills, no fatigue, no weakness and no anorexia Respiratory: no cough, no dyspnea, no dyspnea on exertion and no wheezing Cardiovascular: + chest pain (Overnight ); no radiating jaw, neck or arm pain, no dyspnea, no palpitations, no lightheadedness, no syncope and no edema Gastrointestinal: no abdominal pain, no nausea and no constipation Genitourinary: no difficulty urinating Musculoskeletal: no back pain and no joint pain Integumentary: no non-healing lesions Allergy / Immunological: no rash Physical Exam Physical Exam: General: Pleasant elderly male. HEENT: NC/AT; PERRLA with EOMI; [place] conjunctiva. Neck: Supple and nontender Cardiac: +2/6 systolic ejection murmur; RRR. Lungs: CTA bilaterally Abdomen: Bowel normoactive X 4; Nontender to palpation Extremities: Warm. No edema present Neuro: No focal weakness Skin: No rash Results & Data Vital Signs (Past 12 Hours) Vital Signs Temp Pulse Resp BP BP Pulse Ox 07/23/18 16:20 36.5 C 71 20 96/56 L 99 07/23/18 11:45 36.4 C L 75 18 96/54 L 94 07/23/18 07:50 36.3 C L 88 20 104/67 98 Laboratory Results 07/23/18 07/23/18 07/23/18 Range/Units 16:00 14:15 11:56 WBC (4.8-10.8) K/uL RBC (4.7-6.1) M/uL Hgb (14.0-18.0) g/dL Hct (42-52) % MCV (80-100) fL MCH (25-34) pg MCHC (32-36) g/dL RDW Std Deviation (36.4-46.3) fL RDW Coeff of Sandra (11.5-14.5) % Plt Count (130-400) K/uL MPV (7.4-10.4) fL Immature Gran % (Auto) % Neut % (Auto) % Lymph % (Auto) % Reeves % (Auto) % Eos % (Auto) % Baso % (Auto) % Immature Gran # (Auto) (0.00-0.02) K/uL Neut # (Auto) (1.4-6.5) K/uL Lymph # (Auto) (1.2-3.4) K/uL Reeves # (Auto) (0.11-0.59) K/uL Eos # (Auto) (0-0.5) K/uL Baso # (Auto) (0-0.2) K/uL PT (9.0-12.0) Seconds INR (0.9-1.1) APTT Pending > 139.0 H* > 139.0 H* (21.0-31.0) Seconds PTT Ratio Pending > 5.1 > 5.1 Sodium (136-145) mmol/L Potassium (3.5-5.1) mmol/L Chloride (98-107) mmol/L Carbon Dioxide (21-32) mmol/L Anion Gap (3-11) BUN (7-18) mg/dl Creatinine (0.6-1.4) mg/dl Est Cr Clr Drug Dosing ml/min Est GFR ( Amer) Est GFR (Non-Af Amer) BUN/Creatinine Ratio (10-20) Glucose (70-99) mg/dl POC Glucose (70-99) Calcium (8.5-10.1) mg/dl Troponin I (0-0.045) ng/ml 07/23/18 07/23/18 07/23/18 Range/Units 11:35 09:23 09:23 WBC (4.8-10.8) K/uL RBC (4.7-6.1) M/uL Hgb (14.0-18.0) g/dL Hct (42-52) % MCV (80-100) fL MCH (25-34) pg MCHC (32-36) g/dL RDW Std Deviation (36.4-46.3) fL RDW Coeff of Sandra (11.5-14.5) % Plt Count (130-400) K/uL MPV (7.4-10.4) fL Immature Gran % (Auto) % Neut % (Auto) % Lymph % (Auto) % Reeves % (Auto) % Eos % (Auto) % Baso % (Auto) % Immature Gran # (Auto) (0.00-0.02) K/uL Neut # (Auto) (1.4-6.5) K/uL Lymph # (Auto) (1.2-3.4) K/uL Reeves # (Auto) (0.11-0.59) K/uL Eos # (Auto) (0-0.5) K/uL Baso # (Auto) (0-0.2) K/uL PT (9.0-12.0) Seconds INR (0.9-1.1) APTT Cancelled (21.0-31.0) Seconds PTT Ratio Cancelled Sodium 140 (136-145) mmol/L Potassium 3.3 L (3.5-5.1) mmol/L Chloride 109 H (98-107) mmol/L Carbon Dioxide 22 (21-32) mmol/L Anion Gap 8.0 (3-11) BUN 14 (7-18) mg/dl Creatinine 1.27 (0.6-1.4) mg/dl Est Cr Clr Drug Dosing 46.9 ml/min Est GFR ( Amer) 60.2 Est GFR (Non-Af Amer) 51.9 BUN/Creatinine Ratio 10.7 (10-20) Glucose 179 H (70-99) mg/dl POC Glucose 120 H (70-99) Calcium 8.8 (8.5-10.1) mg/dl Troponin I (0-0.045) ng/ml 07/23/18 07/23/18 07/23/18 Range/Units 09:23 07:40 01:44 WBC 6.66 (4.8-10.8) K/uL RBC 3.52 L (4.7-6.1) M/uL Hgb 10.3 L (14.0-18.0) g/dL Hct 29.8 L (42-52) % MCV 84.7 (80-100) fL MCH 29.3 (25-34) pg MCHC 34.6 (32-36) g/dL RDW Std Deviation 45.9 (36.4-46.3) fL RDW Coeff of Sandra 14.8 H (11.5-14.5) % Plt Count 306 (130-400) K/uL MPV 9.9 (7.4-10.4) fL Immature Gran % (Auto) % Neut % (Auto) % Lymph % (Auto) % Reeves % (Auto) % Eos % (Auto) % Baso % (Auto) % Immature Gran # (Auto) (0.00-0.02) K/uL Neut # (Auto) (1.4-6.5) K/uL Lymph # (Auto) (1.2-3.4) K/uL Reeves # (Auto) (0.11-0.59) K/uL Eos # (Auto) (0-0.5) K/uL Baso # (Auto) (0-0.2) K/uL PT 10.7 (9.0-12.0) Seconds INR 1.0 (0.9-1.1) APTT 32.9 H (21.0-31.0) Seconds PTT Ratio 1.2 Sodium (136-145) mmol/L Potassium (3.5-5.1) mmol/L Chloride (98-107) mmol/L Carbon Dioxide (21-32) mmol/L Anion Gap (3-11) BUN (7-18) mg/dl Creatinine (0.6-1.4) mg/dl Est Cr Clr Drug Dosing ml/min Est GFR ( Amer) Est GFR (Non-Af Amer) BUN/Creatinine Ratio (10-20) Glucose (70-99) mg/dl POC Glucose 125 H (70-99) Calcium (8.5-10.1) mg/dl Troponin I (0-0.045) ng/ml 07/23/18 07/22/18 07/22/18 Range/Units 01:44 21:45 20:14 WBC 6.55 (4.8-10.8) K/uL RBC 3.44 L (4.7-6.1) M/uL Hgb 10.2 L (14.0-18.0) g/dL Hct 28.7 L (42-52) % MCV 83.4 (80-100) fL MCH 29.7 (25-34) pg MCHC 35.5 (32-36) g/dL RDW Std Deviation 45.1 (36.4-46.3) fL RDW Coeff of Sandra 14.8 H (11.5-14.5) % Plt Count 287 (130-400) K/uL MPV 9.2 (7.4-10.4) fL Immature Gran % (Auto) 0.6 % Neut % (Auto) 55.0 % Lymph % (Auto) 32.2 % Reeves % (Auto) 10.2 % Eos % (Auto) 1.7 % Baso % (Auto) 0.3 % Immature Gran # (Auto) 0.04 H (0.00-0.02) K/uL Neut # (Auto) 3.60 (1.4-6.5) K/uL Lymph # (Auto) 2.11 (1.2-3.4) K/uL Reeves # (Auto) 0.67 H (0.11-0.59) K/uL Eos # (Auto) 0.11 (0-0.5) K/uL Baso # (Auto) 0.02 (0-0.2) K/uL PT (9.0-12.0) Seconds INR (0.9-1.1) APTT (21.0-31.0) Seconds PTT Ratio Sodium (136-145) mmol/L Potassium (3.5-5.1) mmol/L Chloride (98-107) mmol/L Carbon Dioxide (21-32) mmol/L Anion Gap (3-11) BUN (7-18) mg/dl Creatinine (0.6-1.4) mg/dl Est Cr Clr Drug Dosing ml/min Est GFR ( Amer) Est GFR (Non-Af Amer) BUN/Creatinine Ratio (10-20) Glucose (70-99) mg/dl POC Glucose 105 H (70-99) Calcium (8.5-10.1) mg/dl Troponin I 3.870 H* (0-0.045) ng/ml 07/22/18 Range/Units 16:33 WBC (4.8-10.8) K/uL RBC (4.7-6.1) M/uL Hgb (14.0-18.0) g/dL Hct (42-52) % MCV (80-100) fL MCH (25-34) pg MCHC (32-36) g/dL RDW Std Deviation (36.4-46.3) fL RDW Coeff of Sandra (11.5-14.5) % Plt Count (130-400) K/uL MPV (7.4-10.4) fL Immature Gran % (Auto) % Neut % (Auto) % Lymph % (Auto) % Reeves % (Auto) % Eos % (Auto) % Baso % (Auto) % Immature Gran # (Auto) (0.00-0.02) K/uL Neut # (Auto) (1.4-6.5) K/uL Lymph # (Auto) (1.2-3.4) K/uL Reeves # (Auto) (0.11-0.59) K/uL Eos # (Auto) (0-0.5) K/uL Baso # (Auto) (0-0.2) K/uL PT (9.0-12.0) Seconds INR (0.9-1.1) APTT (21.0-31.0) Seconds PTT Ratio Sodium (136-145) mmol/L Potassium (3.5-5.1) mmol/L Chloride (98-107) mmol/L Carbon Dioxide (21-32) mmol/L Anion Gap (3-11) BUN (7-18) mg/dl Creatinine (0.6-1.4) mg/dl Est Cr Clr Drug Dosing ml/min Est GFR ( Amer) Est GFR (Non-Af Amer) BUN/Creatinine Ratio (10-20) Glucose (70-99) mg/dl POC Glucose 97 (70-99) Calcium (8.5-10.1) mg/dl Troponin I (0-0.045) ng/ml (1) CAD (coronary artery disease) Associated angina: with unstable angina Coronary Disease-Associated Artery/Lesion type: [place] artery [place] vs. transplanted heart: [place] heart Qualified Code(s): I25.110 - Atherosclerotic heart disease of [place] coronary artery with unstable angina pectoris (2) AAA (abdominal aortic aneurysm) Presence of rupture: without rupture Qualified Code(s): I71.4 - Abdominal aortic aneurysm, without rupture (3) Aortic stenosis Cardiac valve disease etiology: etiology unspecified Qualified Code(s): I35.0 - Nonrheumatic aortic (valve) stenosis (4) HLD (hyperlipidemia) Hyperlipidemia type: pure hypercholesterolemia Qualified Code(s): E78.00 - Pure hypercholesterolemia, unspecified; E78.0 - Pure hypercholesterolemia
[2018-07-23 16:51] LABS: Partial Thromboplastin Time 84.8 Seconds (21.0-31.0)
[2018-07-23] MEDS: ATORVASTATIN 40 MG TAB PO SCH (21:15)
[2018-07-23] MEDS: NITROGLYCERIN SL 0.4 MG/TAB TAB SL PRN ×2 (22:10→22:16)
[2018-07-23 23:59] LABS: Partial Thromboplastin Ratio 4.2
[2018-07-24 00:06] LABS: Partial Thromboplastin Time 114.7 Seconds (21.0-31.0)
[2018-07-24] MEDS: Heparin Adult STANDARD Wt-Based Dextrose 5% 25,000 units/500 mL IV SCH ×2 (02:12→09:22)
[2018-07-24 06:24] LABS: BUN Creatinine Ratio 10.6 (10-20); Calcium 8.9 mg/dl (8.5-10.1); Creatinine Clr Calc Pharmacy 51.4 ml/min; Est GFR (African American) 67.1; Est GFR (Non-African American) 57.9
[2018-07-24 06:29] LABS: Troponin I 3.07 ng/ml (0-0.045)
[2018-07-24 07:46] LABS: Partial Thromboplastin Ratio 3.6
[2018-07-24 07:52] LABS: Partial Thromboplastin Time 98.2 Seconds (21.0-31.0)
[2018-07-24] MEDS: DONEPEZIL HCL 10 MG TAB PO SCH (09:29)
[2018-07-24] MEDS: ASPIRIN 81 MG ECTAB PO SCH (09:29)
[2018-07-24] MEDS: FAMOTIDINE 20 MG TAB PO SCH ×2 (09:30→20:35)
[2018-07-24] MEDS: CLOPIDOGREL BISULFATE 75 MG TAB PO SCH (09:30)
[2018-07-24] MEDS: DOCUSATE SODIUM/SENNA 50/8.6MG TAB PO SCH ×2 (09:31→20:36)
[2018-07-24] MEDS: RANOLAZINE 500 MG ER TAB PO SCH ×2 (09:31→20:35)
[2018-07-24] MEDS: PANTOprazole 40 MG TAB PO SCH (11:23)
[2018-07-24] MEDS: levoFLOXacin 750 MG TAB PO SCH (11:24)
--- NOTE | 2018-07-24 11:36 | Hospitalist Progress Note ---
Date of Service July 24, 2018 Assessment & Plan (1) NSTEMI (non-ST elevated myocardial infarction): - Trop has remained elevated ~3-4 over last 72 hours; has developed chest pain responsive to Nitro tablets over last two nights. - Most recent EKG last evening showed prolonged QT, otherwise no acute changes. - Limited TTE showed mildly reduced systolic function, concern for worsened inferior wall motion. - Cardiology consulted, appreciate their input. - Plan for intervention to PAV to PDA Y graft in setting of stenosis and worsened inferior wall motion on echo -- will need to be NPO Thursday night. - Continue Heparin infusion over the weekend. - Continue ASA/Plavix, statin; increased Ranexa to 1,000 mg BID. (2) Elevated troponin I level: - As noted above. (3) Hypotension: - BP is fluctuating, SBP in 110's then will decrease to 90's. - Avoid significant hypotension in setting of aortic stenosis; cannot tolerate nitro patch or beta blockers. - Infectious work up negative with exception of ?pneumonia and ?pansinusitis -- continue Levaquin 750 mg q48hr - end date: 07/26/18. - Previous AM cortisol level was WNL. (4) CAD (coronary artery disease): - S/p CABG x 4 and subsequent stents; also had recent NSTEMI this spring. - S/p cardiac cath on 06/09, showed severe multivessel CAD but opted for medical management. - Cardiac work up as noted above. - Continue aspirin, plavix, statin and ranexa. - Beta blockade & nitro patch contraindicated due to hypotension. (5) Prolonged QT interval: - Increased to 480 on EKG. - Will monitor qAM -- avoid QT prolonging agents if necessary. Pt. is due for one more dose of Levaquin on 07/26 then will d/c antibiotic. (6) Rectal bleeding: - Denies h/o GI bleeding in past; was likely related to internal hemorrhoids. - Hemoglobin has been stable; FOBT was negative. - Senokot S BID scheduled; MOM prn. - Anusol cream prn. (7) Cervical spine disease: - CT C-spine showed large posterior disc osteophyte complex at C6-C7 likely contributing to compromise of central canal. - MRI showed no acute process within spinal cord. - Ortho spine consulted -- changes are not likely leading to falls at home. (8) Recurrent falls: - Could be secondary to hypotensive episodes. - CT head was negative. - Will likely need SNF placement at discharge. (9) Metabolic encephalopathy: - May be related to underlying infection (?PNA vs. sinusitis) vs. hospital delirium with owning vs. dementia. (10) HLD (hyperlipidemia): - Continue statin as prescribed. (11) DM II (diabetes mellitus, type II), controlled: - Has been recently admitted for hypoglycemia following accidental insulin overdose at home. - Most recent A1C was 6.1 in June 2018. - Does not require treatment, no indication for gluc checks. (12) Aortic stenosis: - Moderate on recent cardiac cath. - Avoid hypotension (see above) (13) AAA (abdominal aortic aneurysm): - Currently stable, was 4.4 x 4.1 cm on most recent imaging. - Follow as outpatient. (14) KAY (obstructive sleep apnea): - Does not use CPAP at home. (15) CKD (chronic kidney disease), stage III: - Renally dose all meds. 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 - Monitor I/O's and daily weights. - Cannot tolerate beta blockers due to hypotension. (17) Anemia: - Monitor CBC qAM; transfuse for hgb <8 due to cardiac history. - Recent iron studies were c/w anemia of chronic disease. (18) Dementia: - Continue home Aricept as prescribed. - Concern for acute hospital delirium as noted above. (19) Vitamin D deficiency: - Holding home Vit D supplementation. (20) GERD (gastroesophageal reflux disease): - Continue home PPI and Famotidine as prescribed. (21) Electrolyte abnormality: - No replacement required. Monitor qAM. (22) DVT prophylaxis: - Heparin infusion. Dispo: Med/surg with tele. Plan for cardiac intervention on Thursday07/26/18. Supervising Physician Co-Signing Physician Notes Attending Attestation: Chart reviewed in detail, care plan d/w AICHA Bourne. I agree w/ the weber components of her documentation. Complicated 82yo male with NSTEMI, chronic systolic CHF, and aortic stenosis. Again had chest pain overnight requiring PRN SL Nitro. Remains on heparin infusion. Hypotension continues to be an issue. Cath planned for Thursday. Continue supportive care. Fortunately labs and other labs stable. Dave Conway MD Subjective Developed chest pain last evening around 22:00, rated as an 8/10. He received Nitro x 2 with resolution of pain. Trop level was 4.2, now improved to 3.07. Trop level has been elevated but stable ~3-4 over last 72 hours. Pt. states he takes Nitro x 2 tablet every night before bed. An outpatient doctor instructed him to do this at night, has been his routine for last few years. He denies chest pain, SOB, N/V, constipation this morning. Chest pain usually occurs overnight, has not had any issues throughout the day. Cardiology is following, appreciate input. Review of Systems Review of Systems: All systems reviewed & are unremarkable except as noted in HPI & below Constitutional: no fever, no chills, no fatigue and no weakness Respiratory: no cough, no dyspnea, no dyspnea on exertion and no wheezing Cardiovascular: + chest pain, + chest pain at rest and + chest pain with activity; no radiating jaw, neck or arm pain, no lightheadedness, no syncope and no edema Gastrointestinal: no abdominal pain, no nausea, no vomiting, no constipation and no diarrhea/loose stools Genitourinary: no difficulty urinating Musculoskeletal: no back pain and no joint pain Integumentary: no non-healing lesions Allergy / Immunological: no rash Physical Exam Physical Exam: General: Pleasant elderly male, in no acute distress. HEENT: NC/AT; PERRLA with EOMI; [place] conjunctiva. Neck: Supple and nontender Cardiac: +2/6 systolic ejection murmur; RRR. Lungs: on 2L via NC; clear to auscultation. Abdomen: Bowel normoactive X 4; Nontender to palpation Extremities: Warm. No edema present Neuro: No focal weakness Skin: No rash Results & Data Vital Signs (Past 12 Hours) Vital Signs Temp Pulse Resp BP BP Pulse Ox 07/24/18 04:33 36.8 C 81 20 117/71 94 07/23/18 23:32 36.7 C 74 18 96/56 L 94 Laboratory Results 07/24/18 07/24/18 07/24/18 Range/Units 10:49 07:33 07:15 APTT 98.2 H* (21.0-31.0) Seconds PTT Ratio 3.6 Sodium Potassium Chloride Carbon Dioxide Anion Gap BUN Creatinine Est Cr Clr Drug Dosing Est GFR ( Amer) Est GFR (Non-Af Amer) BUN/Creatinine Ratio Glucose POC Glucose 129 H (70-99) Calcium Magnesium Troponin I Pending (0-0.045) ng/ml 07/24/18 07/24/18 07/23/18 Range/Units 05:12 05:12 23:28 APTT (21.0-31.0) Seconds PTT Ratio Sodium 140 Cancelled Potassium 4.0 D Cancelled Chloride 110 H Cancelled Carbon Dioxide 25 Cancelled Anion Gap 5.0 Cancelled BUN 12 Cancelled Creatinine 1.16 Cancelled Est Cr Clr Drug Dosing 51.4 Cancelled Est GFR ( Amer) 67.1 Cancelled Est GFR (Non-Af Amer) 57.9 Cancelled BUN/Creatinine Ratio 10.6 Cancelled Glucose 127 H Cancelled POC Glucose (70-99) Calcium 8.9 Cancelled Magnesium 2.0 Cancelled Troponin I 3.070 H* 4.230 H* (0-0.045) ng/ml 07/23/18 07/23/18 07/23/18 Range/Units 23:28 20:22 16:57 APTT 114.7 H* (21.0-31.0) Seconds PTT Ratio 4.2 Sodium Potassium Chloride Carbon Dioxide Anion Gap BUN Creatinine Est Cr Clr Drug Dosing Est GFR ( Amer) Est GFR (Non-Af Amer) BUN/Creatinine Ratio Glucose POC Glucose 119 H 87 (70-99) Calcium Magnesium Troponin I (0-0.045) ng/ml 07/23/18 07/23/18 07/23/18 Range/Units 16:00 14:15 11:56 APTT 84.8 H* > 139.0 H* > 139.0 H* (21.0-31.0) Seconds PTT Ratio 3.1 > 5.1 > 5.1 Sodium Potassium Chloride Carbon Dioxide Anion Gap BUN Creatinine Est Cr Clr Drug Dosing Est GFR ( Amer) Est GFR (Non-Af Amer) BUN/Creatinine Ratio Glucose POC Glucose (70-99) Calcium Magnesium Troponin I (0-0.045) ng/ml 07/23/18 Range/Units 11:35 APTT (21.0-31.0) Seconds PTT Ratio Sodium Potassium Chloride Carbon Dioxide Anion Gap BUN Creatinine Est Cr Clr Drug Dosing Est GFR ( Amer) Est GFR (Non-Af Amer) BUN/Creatinine Ratio Glucose POC Glucose 120 H (70-99) Calcium Magnesium Troponin I (0-0.045) ng/ml (1) CAD (coronary artery disease) Associated angina: with unstable angina Coronary Disease-Associated Artery/Lesion type: [place] artery [place] vs. transplanted heart: [place] heart Qualified Code(s): I25.110 - Atherosclerotic heart disease of [place] coronary artery with unstable angina pectoris (2) AAA (abdominal aortic aneurysm) Presence of rupture: without rupture Qualified Code(s): I71.4 - Abdominal aortic aneurysm, without rupture (3) Aortic stenosis Cardiac valve disease etiology: etiology unspecified Qualified Code(s): I35.0 - Nonrheumatic aortic (valve) stenosis (4) HLD (hyperlipidemia) Hyperlipidemia type: pure hypercholesterolemia Qualified Code(s): E78.00 - Pure hypercholesterolemia, unspecified; E78.0 - Pure hypercholesterolemia
[2018-07-24 15:45] LABS: Partial Thromboplastin Ratio 2.4
[2018-07-24 15:49] LABS: Partial Thromboplastin Time 65.5 Seconds (21.0-31.0)
--- NOTE | 2018-07-24 16:24 | Cardiology Progress Note ---
Date of Service July 24, 2018 Assessment & Plan (1) Non-ST elevation NC (NSTEMI): 2. Ischemic cardiomyopathy 3. Hypotension 4. Moderate 5. DM with recurrent hypoglycemia 6. Dementia 7. Anemia 8. Sinusitis Continued intermittent episodes of chest pain. Feeling well this morning. Awaiting repeat cath and possible intervention to Y graft limb to PDA. In the interim continue heparin infusion, ASA/clopidogrel, statin and increased ranexa now at 1000mg BID. NPO thursday midnight. Subjective Repeat episode of chest pain overnight requiring 2 sublingual nitroglycerin. This morning reports feeling well no new complaints. Troponin fluctuating 4.4, 3.8, 4.2, 3.1. EKG unchanged Telemetry reviewedunremarkable Review of Systems Review of Systems: All systems reviewed & are unremarkable except as noted in HPI & below Physical Exam Constitutional: well developed Eyes: PERRL, conjunctivae normal, anicteric sclerae Respiratory: normal respiratory effort, lungs clear to auscultation Cardiovascular: RRR, no murmur, no edema Psychiatric: A+Ox3, euthymic affect Results & Data Vital Signs (Past 12 Hours) Vital Signs Temp Pulse Pulse Resp BP Pulse Ox 07/24/18 15:24 36.4 C L 60 18 99/64 L 93 07/24/18 13:16 77 07/24/18 13:00 36.3 C L 73 18 113/69 07/24/18 04:33 36.8 C 81 20 117/71 94
[2018-07-24] MEDS: ATORVASTATIN 40 MG TAB PO SCH (20:35)
[2018-07-25] MEDS: NITROGLYCERIN SL 0.4 MG/TAB TAB SL PRN ×3 (00:15→00:31)
[2018-07-25] MEDS ORDERED: NITROGLYCERIN 2% OINTMENT 30GM TUBE EXT ONE (01:05)
--- NOTE | 2018-07-25 03:27 | Progress Note ---
Date of Service July 25, 2018 Received page from patient's nurse that he had the return of his chest pain, similar to prior. It improved with two NTG before I was notified. Vitals reviewed. Acute EKG this evening notes NSR, rate 81, very similar to last EKG about 48 hours ago. Ordered 0.5 inches of nitropaste. Spoke with patient's nurse in the hallway outside of his room. He was sitting / transferring on the side of his bed. Nurse states that he has not complained of any pain since the nitropaste administration. Last BP was 115/66. Cardiology note mentions likely repeat cath on Thursday. Currently medically managed. Nic Goyal, PGY2 Overnight call Results & Data Vital Signs (Past 12 Hours) Vital Signs Temp Pulse Pulse Resp BP BP Pulse Ox 07/25/18 02:02 71 07/25/18 01:14 77 115/66 07/25/18 00:30 83 100/63 07/24/18 23:00 36.6 C 79 18 120/76 100 07/24/18 16:00 63 07/24/18 15:24 36.4 C L 60 18 99/64 L 93
[2018-07-25 07:02] LABS: Hematocrit (blood only) 28.4 % (42-52); Mean Corpuscular Hgb Conc 35.2 g/dL (32-36); Mean Corpuscular Volume 83.5 fL (80-100); Mean Platelet Volume 9.3 fL (7.4-10.4); Platelet Count 355 K/uL (130-400); RDW Coefficient of Variation 14.9 % (11.5-14.5); White Blood Count 8.63 K/uL (4.8-10.8)
[2018-07-25 07:26] LABS: Partial Thromboplastin Time 80.6 Seconds (21.0-31.0)
[2018-07-25 07:30] LABS: BUN Creatinine Ratio 11.1 (10-20); Calcium 9.1 mg/dl (8.5-10.1); Creatinine Clr Calc Pharmacy 48.9 ml/min; Est GFR (African American) 63.2; Est GFR (Non-African American) 54.5; Potassium 3.9 mmol/L (3.5-5.1)
[2018-07-25] MEDS: ASPIRIN 81 MG ECTAB PO SCH (08:01)
[2018-07-25] MEDS: DONEPEZIL HCL 10 MG TAB PO SCH (08:01)
[2018-07-25] MEDS: PANTOprazole 40 MG TAB PO SCH (08:01)
[2018-07-25] MEDS: CLOPIDOGREL BISULFATE 75 MG TAB PO SCH (08:01)
[2018-07-25] MEDS: RANOLAZINE 500 MG ER TAB PO SCH ×2 (08:01→20:26)
[2018-07-25] MEDS: FAMOTIDINE 20 MG TAB PO SCH ×2 (08:02→20:26)
[2018-07-25] MEDS: DOCUSATE SODIUM/SENNA 50/8.6MG TAB PO SCH ×2 (08:02→20:26)
[2018-07-25] MEDS: Heparin Adult STANDARD Wt-Based Dextrose 5% 25,000 units/500 mL IV SCH (09:52)
--- NOTE | 2018-07-25 13:39 | Hospitalist Progress Note ---
Date of Service July 25, 2018 Assessment & Plan (1) NSTEMI (non-ST elevated myocardial infarction): - Trop has remained elevated ~3-4 during this admission; developed chest pain over last 3 nights, resolved during the day. - Most recent EKG early this morning showed prolonged QT, unchanged ST changes. - Limited TTE showed mildly reduced systolic function, concern for worsened inferior wall motion. - Cardiology consulted, appreciate their input. - Plan for intervention to PAV to PDA Y graft in setting of stenosis and worsened inferior wall motion on echo -- will be completed tomorrow, NPO after midnight. - Continue Heparin infusion. - Continue ASA/Plavix, statin, Ranexa (increased to 1 gm BID) (2) Elevated troponin I level: - As noted above. (3) Hypotension: - BP has been labile -- 90's to 120's. - Avoid significant hypotension in setting of aortic stenosis; cannot tolerate nitro patch or beta blockers. - Infectious work up negative with exception of ?pneumonia and ?pansinusitis -- continue Levaquin 750 mg q48hr - end date: 07/27/18. - Previous AM cortisol level was WNL. (4) CAD (coronary artery disease): - S/p CABG x 4 and subsequent stents; also had recent NSTEMI this spring. - S/p cardiac cath on 06/09, showed severe multivessel CAD but opted for medical management. - Cardiac work up as noted above. - Continue aspirin, plavix, statin and ranexa. - Beta blockade & nitro patch contraindicated due to hypotension. (5) Prolonged QT interval: - Increased to 490 on EKG early this morning. - Will monitor qAM -- avoid QT prolonging agents if possible. Pt. is due for one more dose of Levaquin on 07/26 then will d/c antibiotic. (6) Rectal bleeding: - Denies h/o GI bleeding in past; was likely related to internal hemorrhoids. - Hemoglobin has been stable; FOBT was negative. - Senokot S BID scheduled; MOM prn. - Anusol cream prn. (7) Cervical spine disease: - CT C-spine showed large posterior disc osteophyte complex at C6-C7 likely contributing to compromise of central canal. - MRI showed no acute process within spinal cord. - Ortho spine consulted -- changes are not likely leading to falls at home. (8) Recurrent falls: - Could be secondary to hypotensive episodes. - CT head was negative. - Will likely need SNF placement following resolution of acute issues. (9) Metabolic encephalopathy: - May be related to underlying infection (?PNA vs. sinusitis) vs. hospital delirium with sundowning vs. dementia. (10) HLD (hyperlipidemia): - Continue statin as prescribed. (11) DM II (diabetes mellitus, type II), controlled: - Has been recently admitted for hypoglycemia following accidental insulin overdose at home. - Most recent A1C was 6.1 in June 2018. - Does not require treatment, no indication for gluc checks. (12) Aortic stenosis: - Moderate on recent cardiac cath. - Avoid hypotension (see above) (13) AAA (abdominal aortic aneurysm): - Currently stable, was 4.4 x 4.1 cm on most recent imaging. - Follow as outpatient. (14) KAY (obstructive sleep apnea): - Does not use CPAP at home. (15) CKD (chronic kidney disease), stage III: - Renally dose all meds. 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 - Monitor I/O's and daily weights. - Cannot tolerate beta blockers due to hypotension. (17) Anemia: - Monitor CBC qAM; transfuse for hgb <8 due to cardiac history. - Recent iron studies were c/w anemia of chronic disease. (18) Dementia: - Continue home Aricept as prescribed. (19) Vitamin D deficiency: - Holding home Vit D supplementation. (20) GERD (gastroesophageal reflux disease): - Continue home PPI and Famotidine as prescribed. (21) Electrolyte abnormality: - No replacement required. Monitor qAM. (22) DVT prophylaxis: - Heparin infusion. Dispo: Med/surg with tele. Plan for cardiac intervention on Thursday07/26/18. Supervising Physician Co-Signing Physician Notes Attending Attestation: Chart reviewed in detail, care plan d/w AICHA Bourne. I agree w/ the weber components of her documentation. 82yo male with NSTEMI, chronic systolic CHF, and aortic stenosis. Again had chest pain overnight requiring PRN SL Nitro. Fortunately troponins this weekend have not risen. Remains on heparin infusion. Labs today stable. Cath planned for tomorrow. Dave Conway MD Subjective Pt. had recurrent chest pain overnight, required Nitro x2. Is doing well this morning, no further episodes of chest pain, SOB, N/V. Is having BMs, denies urinary retention. Plan for cardiac cath tomorrow. Review of Systems Review of Systems: All systems reviewed & are unremarkable except as noted in HPI & below Constitutional: no fever, no chills, no fatigue and no weakness Respiratory: no cough, no dyspnea, no dyspnea on exertion and no wheezing Cardiovascular: no chest pain, no palpitations, no lightheadedness, no syncope and no edema Gastrointestinal: no abdominal pain, no nausea, no vomiting and no constipation Genitourinary: no difficulty urinating Musculoskeletal: no back pain and no joint pain Integumentary: no non-healing lesions Allergy / Immunological: no rash Physical Exam Physical Exam: General: In no acute distress. HEENT: NC/AT; PERRLA with EOMI; [place] conjunctiva. Neck: Supple and nontender Cardiac: +2/6 systolic ejection murmur; RRR. Lungs: on room air; clear to auscultation. Abdomen: Bowel normoactive X 4; Nontender to palpation Extremities: Warm. No edema present Neuro: No focal weakness Skin: No rash Results & Data Vital Signs (Past 12 Hours) Vital Signs Temp Pulse Pulse Resp BP Pulse Ox 07/25/18 12:00 36.7 C 74 18 94/62 L 100 07/25/18 07:33 68 07/25/18 07:00 36.6 C 66 18 106/65 100 07/25/18 04:20 36.3 C L 83 20 116/73 100 07/25/18 02:02 71 Laboratory Results 07/25/18 07/25/18 07/25/18 Range/Units 13:14 11:35 07:27 WBC (4.8-10.8) K/uL RBC (4.7-6.1) M/uL Hgb (14.0-18.0) g/dL Hct (42-52) % MCV (80-100) fL MCH (25-34) pg MCHC (32-36) g/dL RDW Std Deviation (36.4-46.3) fL RDW Coeff of Sandra (11.5-14.5) % Plt Count (130-400) K/uL MPV (7.4-10.4) fL APTT Pending (21.0-31.0) Seconds PTT Ratio Pending Sodium (136-145) mmol/L Potassium (3.5-5.1) mmol/L Chloride (98-107) mmol/L Carbon Dioxide (21-32) mmol/L Anion Gap (3-11) BUN (7-18) mg/dl Creatinine (0.6-1.4) mg/dl Est Cr Clr Drug Dosing ml/min Est GFR ( Amer) Est GFR (Non-Af Amer) BUN/Creatinine Ratio (10-20) Glucose (70-99) mg/dl POC Glucose 118 H 118 H (70-99) Calcium (8.5-10.1) mg/dl 07/25/18 07/25/18 07/25/18 Range/Units 06:39 06:39 06:39 WBC 8.63 (4.8-10.8) K/uL RBC 3.40 L (4.7-6.1) M/uL Hgb 10.0 L (14.0-18.0) g/dL Hct 28.4 L (42-52) % MCV 83.5 (80-100) fL MCH 29.4 (25-34) pg MCHC 35.2 (32-36) g/dL RDW Std Deviation 45.0 (36.4-46.3) fL RDW Coeff of Sandra 14.9 H (11.5-14.5) % Plt Count 355 (130-400) K/uL MPV 9.3 (7.4-10.4) fL APTT 80.6 H* (21.0-31.0) Seconds PTT Ratio 3.0 Sodium 139 (136-145) mmol/L Potassium 3.9 (3.5-5.1) mmol/L Chloride 107 (98-107) mmol/L Carbon Dioxide 25 (21-32) mmol/L Anion Gap 7.0 (3-11) BUN 14 (7-18) mg/dl Creatinine 1.22 (0.6-1.4) mg/dl Est Cr Clr Drug Dosing 48.9 ml/min Est GFR ( Amer) 63.2 Est GFR (Non-Af Amer) 54.5 BUN/Creatinine Ratio 11.1 (10-20) Glucose 114 H (70-99) mg/dl POC Glucose (70-99) Calcium 9.1 (8.5-10.1) mg/dl 07/24/18 07/24/18 07/24/18 Range/Units 20:00 16:37 15:15 WBC (4.8-10.8) K/uL RBC (4.7-6.1) M/uL Hgb (14.0-18.0) g/dL Hct (42-52) % MCV (80-100) fL MCH (25-34) pg MCHC (32-36) g/dL RDW Std Deviation (36.4-46.3) fL RDW Coeff of Sandra (11.5-14.5) % Plt Count (130-400) K/uL MPV (7.4-10.4) fL APTT 65.5 H* (21.0-31.0) Seconds PTT Ratio 2.4 Sodium (136-145) mmol/L Potassium (3.5-5.1) mmol/L Chloride (98-107) mmol/L Carbon Dioxide (21-32) mmol/L Anion Gap (3-11) BUN (7-18) mg/dl Creatinine (0.6-1.4) mg/dl Est Cr Clr Drug Dosing ml/min Est GFR ( Amer) Est GFR (Non-Af Amer) BUN/Creatinine Ratio (10-20) Glucose (70-99) mg/dl POC Glucose 117 H 116 H (70-99) Calcium (8.5-10.1) mg/dl (1) CAD (coronary artery disease) Associated angina: with unstable angina Coronary Disease-Associated Artery/Lesion type: [place] artery [place] vs. transplanted heart: [place] heart Qualified Code(s): I25.110 - Atherosclerotic heart disease of [place] coronary artery with unstable angina pectoris (2) AAA (abdominal aortic aneurysm) Presence of rupture: without rupture Qualified Code(s): I71.4 - Abdominal aortic aneurysm, without rupture (3) Aortic stenosis Cardiac valve disease etiology: etiology unspecified Qualified Code(s): I35.0 - Nonrheumatic aortic (valve) stenosis (4) HLD (hyperlipidemia) Hyperlipidemia type: pure hypercholesterolemia Qualified Code(s): E78.00 - Pure hypercholesterolemia, unspecified; E78.0 - Pure hypercholesterolemia
[2018-07-25 13:53] LABS: Partial Thromboplastin Time 54.9 Seconds (21.0-31.0)
[2018-07-25] MEDS: ATORVASTATIN 40 MG TAB PO SCH (20:26)
[2018-07-26 04:25] LABS: Hematocrit (blood only) 30.6 % (42-52); Hemoglobin 10.4 g/dL (14.0-18.0); Mean Platelet Volume 9.5 fL (7.4-10.4); Platelet Count 358 K/uL (130-400); RDW Coefficient of Variation 14.9 % (11.5-14.5); White Blood Count 7.98 K/uL (4.8-10.8)
[2018-07-26 04:41] LABS: BUN Creatinine Ratio 9.7 (10-20); Calcium 9.3 mg/dl (8.5-10.1); Creatinine Clr Calc Pharmacy 42.6 ml/min; Est GFR (African American) 53.5; Est GFR (Non-African American) 46.1; Potassium 4.2 mmol/L (3.5-5.1)
[2018-07-26 04:49] LABS: Partial Thromboplastin Ratio 1.9
[2018-07-26] MEDS: ASPIRIN 81 MG ECTAB PO SCH (08:06)
[2018-07-26] MEDS: DOCUSATE SODIUM/SENNA 50/8.6MG TAB PO SCH ×2 (08:07→21:17)
[2018-07-26] MEDS: FAMOTIDINE 20 MG TAB PO SCH ×2 (08:07→21:16)
[2018-07-26] MEDS: CLOPIDOGREL BISULFATE 75 MG TAB PO SCH (08:07)
[2018-07-26] MEDS: RANOLAZINE 500 MG ER TAB PO SCH ×2 (08:07→21:16)
[2018-07-26] MEDS: PANTOprazole 40 MG TAB PO SCH (08:07)
[2018-07-26] MEDS: DONEPEZIL HCL 10 MG TAB PO SCH (08:38)
[2018-07-26] MEDS: levoFLOXacin 750 MG TAB PO SCH (11:26)
[2018-07-26] MEDS ORDERED: SODIUM CHLORIDE 0.9% 1000ML 250 ML IV ONE (11:34)
--- NOTE | 2018-07-26 13:03 | Hospitalist Progress Note ---
Date of Service July 26, 2018 Assessment & Plan (1) NSTEMI (non-ST elevated myocardial infarction): - Trop has remained elevated ~3-4 during this admission. - Developed chest pain intermittently Thurs-Sat night, no chest pain was reported last evening. - Most recent EKG showed prolonged QT, unchanged ST changes. - Limited TTE showed mildly reduced systolic function, concern for worsened inferior wall motion. - Cardiology consulted, appreciate their input. - Plan for intervention to PAV to PDA Y graft (to be completed today) in setting of stenosis and worsened inferior wall motion on echo. - Continue Heparin infusion. - Continue ASA/Plavix, statin, Ranexa (increased to 1 gm BID) (2) Elevated troponin I level: - As noted above. (3) Hypotension: - BP has been labile -- decreased to 85/56 this AM but was previously stable ~100-120's. - Received 250 cc bolus for hypotensive episode this morning; also removed nitropaste applied during most recent episode of chest pain. - Avoid significant hypotension in setting of aortic stenosis; cannot tolerate beta blockers. - Infectious work up negative with exception of ?pneumonia and ?pansinusitis -- completed Levaquin PO course. (4) CAD (coronary artery disease): - S/p CABG x 4 and subsequent stents; also had recent NSTEMI this spring. - S/p cardiac cath on 06/09, showed severe multivessel CAD but opted for medical management. - Cardiac work up as noted above. - Continue aspirin, plavix, statin and ranexa. - Beta blockade & nitro patch contraindicated due to hypotension. (5) Prolonged QT interval: - QTc increased to 490 on most recent EKG. - Avoid QT prolonging agents if possible; did complete course of Levaquin PO. - Monitor QTc q2-3 days via EKG. (6) Rectal bleeding: - Denies h/o GI bleeding in past; was likely related to internal hemorrhoids. - Hemoglobin has been stable; FOBT was negative. - Senokot S BID scheduled; MOM prn. - Anusol cream prn. (7) Cervical spine disease: - CT C-spine showed large posterior disc osteophyte complex at C6-C7 likely contributing to compromise of central canal. - MRI showed no acute process within spinal cord. - Ortho spine consulted -- changes are not likely leading to falls at home. (8) Recurrent falls: - Could be secondary to hypotensive episodes. - CT head was negative. - Will likely need SNF placement following resolution of acute issues. (9) Metabolic encephalopathy: - May be related to underlying infection (?PNA vs. sinusitis) vs. hospital delirium with sundowning vs. dementia. (10) HLD (hyperlipidemia): - Continue statin as prescribed. (11) DM II (diabetes mellitus, type II), controlled: - Has been recently admitted for hypoglycemia following accidental insulin overdose at home. - Most recent A1C was 6.1 in June 2018. - Does not require treatment, no indication for gluc checks. (12) Aortic stenosis: - Moderate on recent cardiac cath. - Avoid hypotension (see above) (13) AAA (abdominal aortic aneurysm): - Currently stable, was 4.4 x 4.1 cm on most recent imaging. - Follow as outpatient. (14) KAY (obstructive sleep apnea): - Does not use CPAP at home. (15) CKD (chronic kidney disease), stage III: - Renally dose all meds. 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 - Monitor I/O's and daily weights. - Cannot tolerate beta blockers due to hypotension. (17) Anemia: - Monitor CBC qAM; transfuse for hgb <8 due to cardiac history. - Recent iron studies were c/w anemia of chronic disease. (18) Dementia: - Continue home Aricept as prescribed. (19) Vitamin D deficiency: - Holding home Vit D supplementation. (20) GERD (gastroesophageal reflux disease): - Continue home PPI and Famotidine as prescribed. (21) Electrolyte abnormality: - No replacement required. (22) DVT prophylaxis: - Heparin infusion. Dispo: Med/surg with tele. Plan for cardiac intervention this afternoon. Discharge pending cardiology recs, possibly over next 24-48 hours. Subjective Pt. did not have recurrent chest pain last evening -- did have chest pain over previous 3 nights. Feels well today during rounds, did not have cardiac cath yet. Denies chest pain, SOB, abd pain, constipation, N/V. Review of Systems Review of Systems: All systems reviewed & are unremarkable except as noted in HPI & below Constitutional: no fever, no chills, no fatigue and no weakness Respiratory: no cough, no dyspnea, no dyspnea on exertion and no wheezing Cardiovascular: no chest pain, no radiating jaw, neck or arm pain, no lightheadedness, no syncope and no edema Gastrointestinal: no abdominal pain, no nausea and no constipation Genitourinary: no difficulty urinating Musculoskeletal: no back pain and no joint pain Integumentary: no non-healing lesions Allergy / Immunological: no rash Physical Exam Physical Exam: General: In no acute distress. HEENT: NC/AT; PERRLA with EOMI; [place] conjunctiva. Neck: Supple and nontender Cardiac: +2/6 systolic ejection murmur; RRR. Lungs: on room air; clear to auscultation. Abdomen: Bowel normoactive X 4; Nontender to palpation Extremities: Warm. No edema present Neuro: No focal weakness Skin: No rash Results & Data Vital Signs (Past 12 Hours) Vital Signs Temp Pulse Pulse Resp BP Pulse Ox 07/26/18 11:27 36.4 C L 66 18 85/56 L 91 07/26/18 08:00 74 07/26/18 07:22 36.4 C L 79 18 120/77 100 07/26/18 04:35 36.4 C L 79 20 106/69 98 Laboratory Results 07/26/18 07/26/18 07/26/18 Range/Units 11:39 07:50 04:15 WBC (4.8-10.8) K/uL RBC (4.7-6.1) M/uL Hgb (14.0-18.0) g/dL Hct (42-52) % MCV (80-100) fL MCH (25-34) pg MCHC (32-36) g/dL RDW Std Deviation (36.4-46.3) fL RDW Coeff of Sandra (11.5-14.5) % Plt Count (130-400) K/uL MPV (7.4-10.4) fL APTT (21.0-31.0) Seconds PTT Ratio Sodium 138 (136-145) mmol/L Potassium 4.2 (3.5-5.1) mmol/L Chloride 108 H (98-107) mmol/L Carbon Dioxide 23 (21-32) mmol/L Anion Gap 7.0 (3-11) BUN 14 (7-18) mg/dl Creatinine 1.40 (0.6-1.4) mg/dl Est Cr Clr Drug Dosing 42.6 ml/min Est GFR ( Amer) 53.5 Est GFR (Non-Af Amer) 46.1 BUN/Creatinine Ratio 9.7 L (10-20) Glucose 117 H (70-99) mg/dl POC Glucose 116 H 112 H (70-99) Calcium 9.3 (8.5-10.1) mg/dl 07/26/18 07/26/18 07/25/18 Range/Units 04:15 04:15 20:22 WBC 7.98 (4.8-10.8) K/uL RBC 3.60 L (4.7-6.1) M/uL Hgb 10.4 L (14.0-18.0) g/dL Hct 30.6 L (42-52) % MCV 85.0 (80-100) fL MCH 28.9 (25-34) pg MCHC 34.0 (32-36) g/dL RDW Std Deviation 46.0 (36.4-46.3) fL RDW Coeff of Sandra 14.9 H (11.5-14.5) % Plt Count 358 (130-400) K/uL MPV 9.5 (7.4-10.4) fL APTT 52.0 H* (21.0-31.0) Seconds PTT Ratio 1.9 Sodium (136-145) mmol/L Potassium (3.5-5.1) mmol/L Chloride (98-107) mmol/L Carbon Dioxide (21-32) mmol/L Anion Gap (3-11) BUN (7-18) mg/dl Creatinine (0.6-1.4) mg/dl Est Cr Clr Drug Dosing ml/min Est GFR ( Amer) Est GFR (Non-Af Amer) BUN/Creatinine Ratio (10-20) Glucose (70-99) mg/dl POC Glucose 115 H (70-99) Calcium (8.5-10.1) mg/dl 07/25/18 07/25/18 Range/Units 16:32 13:14 WBC (4.8-10.8) K/uL RBC (4.7-6.1) M/uL Hgb (14.0-18.0) g/dL Hct (42-52) % MCV (80-100) fL MCH (25-34) pg MCHC (32-36) g/dL RDW Std Deviation (36.4-46.3) fL RDW Coeff of Sandra (11.5-14.5) % Plt Count (130-400) K/uL MPV (7.4-10.4) fL APTT 54.9 H* (21.0-31.0) Seconds PTT Ratio 2.0 Sodium (136-145) mmol/L Potassium (3.5-5.1) mmol/L Chloride (98-107) mmol/L Carbon Dioxide (21-32) mmol/L Anion Gap (3-11) BUN (7-18) mg/dl Creatinine (0.6-1.4) mg/dl Est Cr Clr Drug Dosing ml/min Est GFR ( Amer) Est GFR (Non-Af Amer) BUN/Creatinine Ratio (10-20) Glucose (70-99) mg/dl POC Glucose 155 H (70-99) Calcium (8.5-10.1) mg/dl (1) CAD (coronary artery disease) Associated angina: with unstable angina Coronary Disease-Associated Artery/Lesion type: [place] artery [place] vs. transplanted heart: [place] heart Qualified Code(s): I25.110 - Atherosclerotic heart disease of [place] coronary artery with unstable angina pectoris (2) AAA (abdominal aortic aneurysm) Presence of rupture: without rupture Qualified Code(s): I71.4 - Abdominal aortic aneurysm, without rupture (3) Aortic stenosis Cardiac valve disease etiology: etiology unspecified Qualified Code(s): I35.0 - Nonrheumatic aortic (valve) stenosis (4) HLD (hyperlipidemia) Hyperlipidemia type: pure hypercholesterolemia Qualified Code(s): E78.00 - Pure hypercholesterolemia, unspecified; E78.0 - Pure hypercholesterolemia
[2018-07-26] MEDS ORDERED: MIDAZOLAM HCL 1 MG/ML 2ML VIAL ONE (16:02)
[2018-07-26] MEDS ORDERED: NITROGLYCERIN/D5W 100MCG/ML 20ML SYR ONE (16:03)
[2018-07-26] MEDS ORDERED: NiCARDipine HCL INJ 2.5 MG/ML 10 ML AMP ONE (16:03)
[2018-07-26] MEDS ORDERED: HEPARIN (PORCINE) 1000 UNIT/ML 10 ML (CATH LAB USE ONLY) ONE (16:03)
[2018-07-26] MEDS ORDERED: fentaNYL citrate 100 MCG/2 ML VIAL ONE (16:03)
--- NOTE | 2018-07-26 17:49 | Cardiac Catheterization ---
Cardiac Cath Procedure Full Procedure Date July 26, 2018 Pre-Procedure Diagnosis Pre-Procedure Diagnosis: Non STEMI AUC Score AUC Score: 7 Post-Procedure Diagnosis Post-Procedure Diagnosis: Severe CAD and Normal Intracardiac Pressures Procedure(s) Performed Procedure(s) Performed: Coronary Angiography, Left Heart Cath, Bypass Graft Angiography and Femoral Artery Angiography [employer] Operator Abdullahi Christine MD Table Keeper(s) Yovany Estimated Blood Loss Estimated Blood Loss: 15 Medication(s) Medication(s): Fentanyl, Heparin, Lidocaine 1%, Metoprolol and Nitroglycerin Summary of Findings Indication: Recurrent angina Access: 6 Fr right common femoral artery, 6 Fr slender right radial artery Catheters: JR4, SABA, tiger Findings: LM - known 100% ostial occlusion LAD -occluded Circumflex -occluded RCA -dominant, stents from ostium into right PLB widely patent. PDA is occluded at the ostium. Y graft retro-fills from PAV back to small mid PDAmid segment of Y graft with 95+% stenosis. RCA provides some left to right collaterals to circumflex system WILNER to LADwidely patent, distal vessel small with severe disease KENNEDY to OMwidely patent, retrofills into mid circumflex SVG to diagonalknown occluded SVG to PDA/PLBknown occluded Attempt made to intervene on severe stenosis in Y graft branch from PAV to PDA. RCA cannulated with JR4 guide Able to pass long whisper into PAV and across stenosis into PDA Unable to pass 1.5 OTW balloon to stenosis and procedure aborted. Post procedure angiography showed no apparent complications. Arterial Closure: Angioseal, TR Band Summary: 1. Severe [place] multivessel coronary artery disease (unchanged from prior cath 06/09/2018). -100% occluded ostial left main Widely patent RCA stents from ostium to right PLB. Occluded ostial right PDA. PDA fills via Y graft from PLB--Y graft with 95+% mid segment stenosis 2. Patent KENNEDY to OM, WILNER to LAD. Known occluded SVG to diagonal, SVG to PDA/PLB. 3. Mildly elevated LV filling pressures. LVEDP 22. 3. Unsuccessful attempt to intervene on PAV to PDA Y graft stenosis as unable to pass balloon to stenosis. Recommendations: No new high risk disease identified. No plans for additional attempts at intervention to graft stenosis. Continue to maximize antianginal therapy. 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
--- NOTE | 2018-07-26 18:03 | Post Anesthesia Assessment ---
Date of Service July 26, 2018 Post Sedation Assessment Vital Signs Temp Pulse Pulse Resp BP BP Pulse Ox 07/26/18 15:28 36.4 C L 77 18 109/56 L 07/26/18 15:06 66 07/26/18 11:27 36.4 C L 66 18 85/56 L 91 07/26/18 08:00 74 07/26/18 07:22 36.4 C L 79 18 120/77 100 07/26/18 04:35 36.4 C L 79 20 106/69 98 07/26/18 00:15 83 07/25/18 22:11 76 103/64 97 07/25/18 19:19 36.5 C 78 18 116/83 98 Recovery Score Activity: Moves 4 extremities Respiration: Deep Breath/Cough Circulation: +/-20% PreAnes Value Consciousness: Fully Awake Oxygen Saturation: O2 needed for >90% Post Sedation Plan On clinical assessment, the patient appears to have tolerated the sedation without complications. Patient is recovering as anticipated. Patient will continue to be monitored by nursing and may be discharged when sedation discharge criteria are met per below protocol. Upon Completions of procedure and additional 15 minutes continue every 5 minute vital signs and the P.A.R. score; then discharge to a Phase I or Fast Track to Phase II per the following guidelines: * Discharge Patient to appropriate Phase II area if PAR is 8 or greater or return to pre- procedure baseline. The post - procedure orders will be as directed. * If PAR score is less than 8 or not return to pre-procedure baseline then patient will follow Phase I monitoring till PAR is reached for Phase II. The Phase I may be done in procedure room or may call to secure a Phase I area. * If naloxone or flumazenil are used for reversal, hold in Phase I for continued monitoring from when last reversal dose was given for a minimum of 60 minutes or longer pending the nurse and/or physician discretion of patient condition before discharge to Phase II. Please call the Sedation Physician to re-evaluate and complete post-note for discharge to Phase II area. Do NOT discharge from procedure sedation or Phase 1 until post- sedation evaluation note is complete by procedure /sedation MD Sedation Discharge Instructions to be given to the patient at discharge to home.
--- NOTE | 2018-07-26 18:14 | Cardiology Progress Note ---
Date of Service July 26, 2018 Assessment & Plan (1) Non-ST elevation [place] (NSTEMI): 2. Ischemic cardiomyopathy 3. Hypotension 4. Moderate 5. DM with recurrent hypoglycemia 6. Dementia 7. Anemia 8. Sinusitis Repeat cardiac cath today. Prior CAD unchanged from 2 months ago. Attempt made at intervention to PAV-PAD Y graft but unable to pass balloon. -- Residual disease in small, low risk vessel and recommend maximization of anti-anginal therapy. -- Continue increased ranexa. Has been off nitropatch --> replace with isosorbide mononitrate and titrate if BP alllows. -- Can discontinue heparin. -- continue ASA/clopidogrel, statin. Subjective No chest pain today. Post cardiac catheterization this afternoon. [place] vessel and Graft disease unchanged from May. Patient tolerated procedure well. No other new complaints. Review of Systems Review of Systems: All systems reviewed & are unremarkable except as noted in HPI & below Physical Exam Physical Exam: General: Comfortable, no acute distress HEENT: Sclerae anicteric, mucous membranes moist Lungs: Clear to auscultation bilaterally, no rhonchi or wheezes Cardiac: Regular rate and rhythm, 2/6 ejection murmur. No JVD. Abdomen: Soft, nontender, nondistended, positive bowel sounds. Extremities: Warm, well perfused, no edema. Diminished right radial pulse. [address] Right [employer] access site dressed Skin: No rashes or lesions. Neuro: Nonfocal Psych: Alert Results & Data Vital Signs (Past 12 Hours) Vital Signs Temp Pulse Pulse Resp BP BP Pulse Ox 07/26/18 15:28 36.4 C L 77 18 109/56 L 07/26/18 15:06 66 07/26/18 11:27 36.4 C L 66 18 85/56 L 91 07/26/18 08:00 74 07/26/18 07:22 36.4 C L 79 18 120/77 100
[2018-07-26] MEDS ORDERED: SODIUM CHLORIDE 0.9% 1000ML 1,000 ML IV SCH (18:15)
[2018-07-26] MEDS: ISOSORBIDE MONO EXTENDED REL 30 MG TABCR PO SCH (21:14)
[2018-07-26] MEDS: ATORVASTATIN 40 MG TAB PO SCH (21:15)
[2018-07-27] MEDS: ASPIRIN 81 MG ECTAB PO SCH (07:50)
[2018-07-27] MEDS: RANOLAZINE 500 MG ER TAB PO SCH ×2 (07:50→20:42)
[2018-07-27] MEDS: DOCUSATE SODIUM/SENNA 50/8.6MG TAB PO SCH ×2 (07:50→22:19)
[2018-07-27] MEDS: DONEPEZIL HCL 10 MG TAB PO SCH (07:50)
[2018-07-27] MEDS: CLOPIDOGREL BISULFATE 75 MG TAB PO SCH (07:50)
[2018-07-27] MEDS: PANTOprazole 40 MG TAB PO SCH (07:50)
[2018-07-27] MEDS: FAMOTIDINE 20 MG TAB PO SCH ×2 (07:50→20:41)
[2018-07-27 07:58] LABS: BUN Creatinine Ratio 9.4 (10-20); Calcium 8.6 mg/dl (8.5-10.1); Creatinine Clr Calc Pharmacy 38.7 ml/min; Est GFR (African American) 47.6; Est GFR (Non-African American) 41.1
[2018-07-27] MEDS ORDERED: ACETAMINOPHEN 325 MG TAB PO STA (08:59)
[2018-07-27] MEDS: ISOSORBIDE MONO EXTENDED REL 30 MG TABCR PO SCH (09:33)
--- NOTE | 2018-07-27 17:40 | Cardiology Progress Note ---
Date of Service July 27, 2018 Assessment & Plan (1) Non-ST elevation [place] (NSTEMI): 2. Ischemic cardiomyopathy 3. Hypotension 4. Moderate 5. DM with recurrent hypoglycemia 6. Dementia 7. Anemia 8. Sinusitis Restarted on nitrates yesterday. Recurrent hypotension, questionable syncopal event today. Doesn't sound vagal. No arrhythmia noted. Post procedure yesterday - Hb stable. No apparent access site complications. SCr slightly up. Looked dry on exam. -- Recommend additional IV fluids today -- Hold Imdur -- Continue Ranexa 1000mg BID -- Continue ASA/Clopidogrel Subjective Reported feeling tired this morning but denied any recurrent chest pain. No significant shortness of breath. Late morning had a questionable syncopal event, slumping over on toliet. BP 71/42. Telemetry reviewedno significant arrhythmia Review of Systems Review of Systems: All systems reviewed & are unremarkable except as noted in HPI & below Physical Exam Constitutional: WD/WN, vitals as above Eyes: + anicteric sclerae Respiratory: normal respiratory effort, lungs clear to auscultation Cardiovascular: RRR, no murmur, no edema Right radial artery access site with mild ecchymosis. Distal pulse and sensation intact. Right common femoral artery access sitepulse intact, no significant ecchymosis or hematoma Gastrointestinal (Abdomen): normal bowel sounds, soft, nontender, no hepatosplenomegaly Skin: no rashes, warm and dry Neurologic: moves all extremities Psychiatric: Orientation: alert Results & Data Vital Signs (Past 12 Hours) Vital Signs Temp Pulse Pulse Resp BP BP Pulse Ox 07/27/18 16:00 63 07/27/18 15:35 36.5 C 73 22 116/66 99 07/27/18 12:04 36.8 C 72 18 98/61 L 96 07/27/18 10:45 94/62 L 07/27/18 10:32 80/45 L 07/27/18 10:30 66 71/42 L 07/27/18 08:01 36.9 C 77 18 102/69 96 07/27/18 08:00 75 07/27/18 07:12 36.6 C 74 19 94/59 L 97
[2018-07-27] MEDS ORDERED: SODIUM CHLORIDE 0.9% 1000ML 1,000 ML IV SCH (17:45)
[2018-07-27] MEDS: ATORVASTATIN 40 MG TAB PO SCH (20:41)
--- NOTE | 2018-07-27 20:57 | Hospitalist Progress Note ---
Date of Service July 27, 2018 Assessment & Plan (1) NSTEMI (non-ST elevated myocardial infarction): - Trop has remained elevated ~3-4 during this admission; Developed chest pain intermittently Thurs-Sat night - Most recent EKG showed prolonged QT, unchanged ST changes; Limited TTE showed mildly reduced systolic function, concern for worsened inferior wall motion. - S/P Cath on 07/26 with ongoing CAD without ability to pass balloon and therefore plan to medical optimize symptoms - Heparin infusion has since been D/Cd - ASA 81 mg daily and Plavix 75 mg daily; Atorvastatin 40 mg daily; Ranexa increased recently to 1 g BID; Trialed Imdur but possibly contributing to orthostasis - Cardiology consulted - appreciate their input. Present on Admission?: Yes (2) CAD (coronary artery disease): - S/P CABG x 4 and subsequent stents; also had recent NSTEMI this spring; Cath on 06/09 with severe multivessel CAD - Continue aspirin, plavix, statin and ranexa. - Beta blockade & nitro patch contraindicated due to hypotension. Present on Admission?: Yes (3) Hypotension: - BP has been labile and + orthostasis - Additional IVF given today due to syncopal episode late morning when getting up from toilet - Holding Imdur; holding home BB therapy as well - given aortic stenosis will try to prevent hypotension Present on Admission?: Yes (4) Prolonged QT interval: - Avoid QT prolonging agents if possible; did complete course of Levaquin PO. - Monitor QTc q2-3 days via EKG. Present on Admission?: Yes (5) Rectal bleeding: - Denies H/O GI bleeding in past; was likely related to internal hemorrhoids. - Hemoglobin has been stable; FOBT was negative. - Senokot S BID scheduled; MOM PRN; Anusol PRN Present on Admission?: Yes (6) Cervical spine disease: - CT C-spine showed large posterior disc osteophyte complex at C6-C7 likely contributing to compromise of central canal. - MRI showed no acute process within spinal cord. - Ortho spine consulted -- changes are not likely leading to falls at home. Present on Admission?: Yes (7) Recurrent falls: - Could be secondary to hypotensive episodes. - CT head was negative. - Planning on SNF for rehab - will monitor BP Present on Admission?: Yes (8) Metabolic encephalopathy: - May be related to underlying infection (?PNA vs. sinusitis) vs. hospital delirium with sundowning vs. dementia - alert and oriented today on assessment and will monitor Present on Admission?: Yes (9) HLD (hyperlipidemia): - Continue statin as prescribed. Present on Admission?: Yes (10) DM II (diabetes mellitus, type II), controlled: - Has been recently admitted for hypoglycemia following accidental insulin overdose at home. - Most recent A1C was 6.1 in June 2018. - Does not require treatment, no indication for gluc checks. Present on Admission?: Yes (11) Aortic stenosis: - Moderate on recent cardiac cath. - Avoid hypotension (see above) Present on Admission?: Yes (12) AAA (abdominal aortic aneurysm): - Currently stable, was 4.4 x 4.1 cm on most recent imaging. - Follow as outpatient. Present on Admission?: Yes (13) KAY (obstructive sleep apnea): - Does not use CPAP at home. Present on Admission?: Yes (14) CKD (chronic kidney disease), stage III: - Slight rise on labs this AM - gentle hydration and recheck in AM - Renally dose all meds Present on Admission?: Yes (15) Systolic and diastolic CHF, chronic: - Most recent TTE showed EF 45% with wall motion abnormalities; repeat TTE is unchanged. - Monitor I/O's and daily weights. - Cannot tolerate beta blockers due to hypotension; slightly dry on exam Present on Admission?: Yes (16) Anemia: - Monitor CBC currently stable; transfuse for hgb <8 due to cardiac history. - Recent iron studies were c/w anemia of chronic disease. Present on Admission?: Yes (17) Dementia: - Continue home Aricept 10 mg daily Present on Admission?: Yes (18) Vitamin D deficiency: - Holding home Vit D supplementation. Present on Admission?: Yes (19) GERD (gastroesophageal reflux disease): - Continue home PPI and Famotidine as prescribed. Present on Admission?: Yes (20) DVT prophylaxis: - SCDs Dispo: Monitor due to syncope and orthostasis; planning on [place] on D/C possibly next 2-3 days Subjective Patient reports feeling well upon my assessment. Did have a syncopal episode this AM with low BPs noted which did improve with rest. Was evaluated by Dr. Bess after event. While laying in bed he denies any further lightheadedness/dizziness and was planning on taking a nap. He denies CP or any other symptoms. He is interested in going to SNF on D/C Review of Systems Constitutional: no fever and no chills Eyes: no worsening vision Respiratory: no cough and no dyspnea Cardiovascular: + syncope (prior to my visit when ambulating to bathroom); no chest pain, no palpitations, no lightheadedness and no edema Gastrointestinal: no abdominal pain, no nausea, no vomiting, no constipation and no diarrhea/loose stools Genitourinary: no dysuria Integumentary: no rash Neurologic: + falls Physical Exam Constitutional: + frail appearing; no acute distress and not ill appearing Eyes: + anicteric sclerae ENMT: Ears: no hearing impairment Neck: normal visual inspection and trachea midline Respiratory: normal respiratory effort, lungs clear to auscultation Cardiovascular: Rate/Rhythm: regular rate and regular rhythm Gastrointestinal (Abdomen): Inspection/Auscultation: normal bowel sounds Percussion/Palpation: abdomen soft; abdomen nontender Musculoskeletal: Head/Neck/Chest: normocephalic and head atraumatic Extremities: no cyanosis and no clubbing Skin: no rashes, warm and dry Neurologic: moves all extremities Psychiatric: A+Ox3, euthymic affect Results & Data Vital Signs (Past 12 Hours) Vital Signs Temp Pulse Pulse Resp BP BP Pulse Ox 07/27/18 19:14 36.3 C L 74 19 104/67 98 07/27/18 16:00 63 07/27/18 15:35 36.5 C 73 22 116/66 99 07/27/18 12:04 36.8 C 72 18 98/61 L 96 07/27/18 10:45 94/62 L 07/27/18 10:32 80/45 L 07/27/18 10:30 66 71/42 L (1) CAD (coronary artery disease) Associated angina: with unstable angina Coronary Disease-Associated Artery/Lesion type: [place] artery [place] vs. transplanted heart: [place] heart Qualified Code(s): I25.110 - Atherosclerotic heart disease of [place] coronary artery with unstable angina pectoris (2) AAA (abdominal aortic aneurysm) Presence of rupture: without rupture Qualified Code(s): I71.4 - Abdominal aortic aneurysm, without rupture (3) Aortic stenosis Cardiac valve disease etiology: etiology unspecified Qualified Code(s): I35.0 - Nonrheumatic aortic (valve) stenosis (4) HLD (hyperlipidemia) Hyperlipidemia type: pure hypercholesterolemia Qualified Code(s): E78.00 - Pure hypercholesterolemia, unspecified; E78.0 - Pure hypercholesterolemia
[2018-07-28 08:59] LABS: Hematocrit (blood only) 26.1 % (42-52); Hemoglobin 9.1 g/dL (14.0-18.0); Mean Corpuscular Hgb Conc 34.9 g/dL (32-36); Platelet Count 278 K/uL (130-400); RDW Coefficient of Variation 15.4 % (11.5-14.5); RDW Standard Deviation 47.4 fL (36.4-46.3); Red Blood Count 3.07 M/uL (4.7-6.1); White Blood Count 6.97 K/uL (4.8-10.8)
[2018-07-28] MEDS: DONEPEZIL HCL 10 MG TAB PO SCH (09:00)
[2018-07-28] MEDS: PANTOprazole 40 MG TAB PO SCH (09:01)
[2018-07-28] MEDS: FAMOTIDINE 20 MG TAB PO SCH ×2 (09:01→20:35)
[2018-07-28] MEDS: RANOLAZINE 500 MG ER TAB PO SCH ×2 (09:01→20:35)
[2018-07-28] MEDS: CLOPIDOGREL BISULFATE 75 MG TAB PO SCH (09:01)
[2018-07-28] MEDS: ASPIRIN 81 MG ECTAB PO SCH (09:01)
[2018-07-28 09:31] LABS: BUN Creatinine Ratio 10.3 (10-20); Calcium 8.5 mg/dl (8.5-10.1); Creatinine Clr Calc Pharmacy 42.9 ml/min; Est GFR (African American) 53.9; Est GFR (Non-African American) 46.5; Potassium 3.8 mmol/L (3.5-5.1)
[2018-07-28] MEDS: DOCUSATE SODIUM/SENNA 50/8.6MG TAB PO SCH ×2 (09:58→20:38)
[2018-07-28] MEDS: MAGNESIUM HYDROXIDE SUSP 30 ML UDC PO PRN (09:58)
[2018-07-28] MEDS ORDERED: SODIUM CHLORIDE 0.9% 500 ML IV ONE (14:01)
--- NOTE | 2018-07-28 15:20 | Hospitalist Progress Note ---
Date of Service July 28, 2018 Assessment & Plan (1) NSTEMI (non-ST elevated myocardial infarction): - Trop elevated ~3-4 during this admission - Most recent EKG showed prolonged QT, unchanged ST changes; Limited TTE showed mildly reduced systolic function, concern for worsened inferior wall motion. - S/P Cath on 07/26 with ongoing CAD without ability to pass balloon and therefore plan to medical optimize symptoms - Heparin infusion has since been D/Cd - ASA 81 mg daily and Plavix 75 mg daily; Atorvastatin 40 mg daily; Ranexa increased recently to 1 g BID; Trialed Imdur however possibly contributing to orthostasis and was D/C'd - Cardiology consulted - appreciate their input (2) CAD (coronary artery disease): - S/P CABG x 4 and subsequent stents; also had recent NSTEMI this spring; Cath on 06/09 with severe multivessel CAD - Continue aspirin, plavix, statin and ranexa. - Beta blockade & nitro patch contraindicated due to hypotension. (3) Hypotension: - BP has been labile and + orthostasis - Had a syncopal episode on 07/27 - BPs better today but still orthostatic this afternoon but asymptomatic - Holding Imdur/other nitros and BB theray - given his aortic stenosis will try and prevent hypotension - Will give additional fluids today x 500 cc; add TEDs to B/L legs; will add Florinef 0.1 mg daily -- Will need to monitor this use due to risk of edema (4) Prolonged QT interval: - Avoid QT prolonging agents if possible; did complete course of Levaquin PO. - Monitor QTc - will obtain EKG in AM (5) Rectal bleeding: - Denies H/O GI bleeding in past; was likely related to internal hemorrhoids. - Hemoglobin has been stable but slightly dropped today maybe from dilution; FOBT was negative. - Senokot S BID scheduled; MOM PRN; Anusol PRN; will add Dulcolax PRN (6) Cervical spine disease: - CT C-spine showed large posterior disc osteophyte complex at C6-C7 l ikely contributing to compromise of central canal. - MRI showed no acute process within spinal cord. - Ortho spine consulted -- changes are not likely leading to falls at home. (7) Recurrent falls: - Could be secondary to hypotensive episodes. - CT head was negative. - Planning on SNF for rehab - will monitor BP (8) Metabolic encephalopathy: - May be related to underlying infection (?PNA vs. sinusitis) vs. hospital delirium with sundowning vs. dementia - alert and oriented today on assessment and will monitor; does get forgetful (9) HLD (hyperlipidemia): - Continue statin as prescribed. (10) DM II (diabetes mellitus, type II), controlled: - Has been recently admitted for hypoglycemia following accidental insulin overdose at home. - Most recent A1C was 6.1 in June 2018. - Does not require treatment, no indication for gluc checks. (11) Aortic stenosis: - Moderate on recent cardiac cath. - Avoid hypotension (see above) (12) AAA (abdominal aortic aneurysm): - Currently stable, was 4.4 x 4.1 cm on most recent imaging. - Follow as outpatient. (13) KAY (obstructive sleep apnea): - Does not use CPAP at home. (14) CKD (chronic kidney disease), stage III: - Slight rise on labs yesterday but now resolved - Renally dose all meds (15) Systolic and diastolic CHF, chronic: - Most recent TTE showed EF 45% with wall motion abnormalities; repeat TTE is unchanged. - Monitor I/O's and daily weights. - Cannot tolerate beta blockers due to hypotension (16) Anemia: - Monitor CBC currently stable; transfuse for hgb <8 due to cardiac history. - Recent iron studies were c/w anemia of chronic disease. (17) Dementia: - Continue home Aricept 10 mg daily (18) Vitamin D deficiency: - Holding home Vit D supplementation. (19) GERD (gastroesophageal reflux disease): - Continue home PPI and Famotidine as prescribed. (20) DVT prophylaxis: - SCDs Dispo: Monitor due to orthostasis; planning on [place] on D/C possibly next 2-3 days Subjective Patient was seen at lunch and sitting up at bedside. Reports no dizziness or issues. Only complaint is of constipation. Did have some medications this AM and will see if this will help. Called by nursing that he was orthostatic this afternoon with PT but asymptomatic. Will do another 500 cc fluid, TEDs, and can add Florinef in AM [place] can take him when stable and patient still agreeable to SNF on D/C Review of Systems Constitutional: no fever and no chills Ear, Nose, Mouth, Throat: no dizziness Respiratory: no cough and no dyspnea Cardiovascular: no chest pain, no palpitations, no lightheadedness and no e mitch Gastrointestinal: + constipation; no abdominal pain, no nausea, no vomiting and no diarrhea/loose stools Genitourinary: no dysuria Musculoskeletal: no myalgia and no body aches Integumentary: no rash Physical Exam Constitutional: + frail appearing; no acute distress and not ill appearing Eyes: + anicteric sclerae dark circles around eyes ENMT: Ears: no hearing impairment Neck: normal visual inspection and trachea midline Respiratory: normal respiratory effort, lungs clear to auscultation Cardiovascular: Rate/Rhythm: regular rate and regular rhythm Heart Sounds: + murmur Gastrointestinal (Abdomen): Inspection/Auscultation: normal bowel sounds Percussion/Palpation: abdomen soft; abdomen nontender Musculoskeletal: Head/Neck/Chest: normocephalic and head atraumatic Extremities: no cyanosis and no clubbing Skin: no rashes, warm and dry Neurologic: moves all extremities Psychiatric: A+Ox3, euthymic affect Results & Data Vital Signs (Past 12 Hours) Vital Signs Temp Pulse Pulse Resp BP Pulse Ox 07/28/18 12:00 36 C L 67 16 107/67 96 07/28/18 08:00 36.7 C 63 88 18 113/75 96 (1) CAD (coronary artery disease) Coronary Disease-Associated Artery/Lesion type: [place] artery [place] vs. transplanted heart: [place] heart Associated angina: with unstable angina Qualified Code(s): I25.110 - Atherosclerotic heart disease of [place] coronary artery with unstable angina pectoris (2) HLD (hyperlipidemia) Hyperlipidemia type: pure hypercholesterolemia Qualified Code(s): E78.00 - Pure hypercholesterolemia, unspecified; E78.0 - Pure hypercholesterolemia (3) Aortic stenosis Cardiac valve disease etiology: etiology unspecified Qualified Code(s): I35.0 - Nonrheumatic aortic (valve) stenosis (4) AAA (abdominal aortic aneurysm) Presence of rupture: without rupture Qualified Code(s): I71.4 - Abdominal aortic aneurysm, without rupture
[2018-07-28] MEDS ORDERED: BISACODYL 10 MG SUPP PR PRN (15:30)
--- NOTE | 2018-07-28 18:51 | Cardiology Progress Note ---
Date of Service July 28, 2018 Assessment & Plan (1) Non-ST elevation [place] (NSTEMI): 2. Ischemic cardiomyopathy 3. Hypotension 4. Moderate 5. DM with recurrent hypoglycemia 6. Dementia 7. Anemia 8. Sinusitis No recurrent chest pain. No recurrent syncopal spells. Blood pressure has been stable. Renal function improving after IV fluids. Continue antianginal therapy with Ranexa alone. -- Continue ASA/Clopidogrel Continue high intensity statin Subjective States feeling well today. Feeling somewhat constipated. Denies any chest pain. Denies significant shortness of breath. No more presyncopal events. Telemetry reviewedno events Physical Exam Constitutional: WD/WN, vitals as above well developed Eyes: PERRL, conjunctivae normal, anicteric sclerae + anicteric sclerae Respiratory: normal respiratory effort, lungs clear to auscultation Cardiovascular: RRR, no murmur, no edema Right radial artery access site with patent pulse, ecchymosis. No hematoma. Patent right common femoral artery access site pulse Gastrointestinal (Abdomen): normal bowel sounds, soft, nontender, no hepatosplenomegaly Skin: no rashes, warm and dry Neurologic: moves all extremities Psychiatric: A+Ox3, euthymic affect Orientation: alert Results & Data Vital Signs (Past 12 Hours) Vital Signs Temp Pulse Pulse Resp BP Pulse Ox 07/28/18 15:12 36.7 C 62 20 97/59 L 97 07/28/18 12:00 36 C L 67 16 107/67 96 07/28/18 08:00 36.7 C 63 88 18 113/75 96
[2018-07-28] MEDS: ATORVASTATIN 40 MG TAB PO SCH (20:36)
[2018-07-29 08:26] LABS: Hematocrit (blood only) 27.5 % (42-52); Hemoglobin 9.4 g/dL (14.0-18.0); Mean Corpuscular Hgb Conc 34.2 g/dL (32-36); Mean Corpuscular Volume 85.7 fL (80-100); Mean Platelet Volume 9.2 fL (7.4-10.4); Platelet Count 288 K/uL (130-400); RDW Coefficient of Variation 15.6 % (11.5-14.5); RDW Standard Deviation 48.9 fL (36.4-46.3); Red Blood Count 3.21 M/uL (4.7-6.1); White Blood Count 8.59 K/uL (4.8-10.8)
[2018-07-29] MEDS: PANTOprazole 40 MG TAB PO SCH (08:48)
[2018-07-29] MEDS: CLOPIDOGREL BISULFATE 75 MG TAB PO SCH (08:48)
[2018-07-29] MEDS: DONEPEZIL HCL 10 MG TAB PO SCH (08:48)
[2018-07-29] MEDS: FLUDROCORTISONE ACETATE 0.1 MG TAB PO SCH (08:48)
[2018-07-29] MEDS: ASPIRIN 81 MG ECTAB PO SCH (08:49)
[2018-07-29] MEDS: FAMOTIDINE 20 MG TAB PO SCH ×2 (08:49→20:45)
[2018-07-29] MEDS: RANOLAZINE 500 MG ER TAB PO SCH ×2 (08:49→20:45)
[2018-07-29] MEDS: DOCUSATE SODIUM/SENNA 50/8.6MG TAB PO SCH ×2 (08:51→20:50)
--- NOTE | 2018-07-29 16:24 | Hospitalist Progress Note ---
Date of Service July 29, 2018 Assessment & Plan (1) NSTEMI (non-ST elevated myocardial infarction): - Trop elevated ~3-4 during this admission - Limited TTE showed mildly reduced systolic function, concern for worsened inferior wall motion. - S/P Cath on 07/26 with ongoing CAD without ability to pass balloon and therefore plan to medical optimize symptoms - Heparin infusion has since been D/Cd - ASA 81 mg daily and Plavix 75 mg daily; Atorvastatin 40 mg daily; Ranexa increased recently to 1 g BID; Trialed Imdur however possibly contributing to orthostasis and was D/C'd - Cardiology consulted - appreciate their input (2) CAD (coronary artery disease): - S/P CABG x 4 and subsequent stents; also had recent NSTEMI this spring; Cath on 06/09 with severe multivessel CAD - Continue aspirin, plavix, statin and ranexa. - Beta blockade & nitro patch contraindicated due to hypotension. (3) Hypotension: - BP has been labile and + orthostasis - however this is improving and is asymptomatic - by definition the readings today do drop but not enough to be called orthostasis - Had a syncopal episode on 07/27 - no other similar issues since - Holding Imdur/other nitros and BB theray - given his aortic stenosis will try and prevent hypotension - TEDs to B/L legs; Florinef 0.1 mg daily -- Will need to monitor this use due to risk of edema (4) Prolonged QT interval: - Avoid QT prolonging agents if possible; did complete course of Levaquin PO. - Monitor QTc - QT improved on EKG this AM (5) Rectal bleeding: - Denies H/O GI bleeding in past; was likely related to internal hemorrhoids; did attempt to self-disimpact and resulted in some BRBPR - Hemoglobin has been stable but slightly dropped today maybe from dilution; FOBT was negative. - Senokot S BID scheduled; MOM PRN; Anusol PRN; will add Dulcolax PRN (6) Cervical spine disease: - CT C-spine showed large posterior disc osteophyte complex at C6-C7 likely contributing to compromise of central canal. - MRI showed no acute process within spinal cord. - Ortho spine consulted -- changes are not likely leading to falls at home. (7) Recurrent falls: - Could be secondary to hypotensive episodes. - CT head was negative. - Planning on SNF for rehab - will monitor BP (8) Metabolic encephalopathy: - May be related to underlying infection (?PNA vs. sinusitis) vs. hospital delirium with sundowning vs. dementia - alert and oriented today on assessment and will monitor; does get forgetful (9) HLD (hyperlipidemia): - Continue statin as prescribed. (10) DM II (diabetes mellitus, type II), controlled: - Has been recently admitted for hypoglycemia following accidental insulin overdose at home. - Most recent A1C was 6.1 in June 2018. - Does not require treatment, no indication for gluc checks. (11) Aortic stenosis: - Moderate on recent cardiac cath. - Avoid hypotension (see above) (12) AAA (abdominal aortic aneurysm): - Currently stable, was 4.4 x 4.1 cm on most recent imaging. - Follow as outpatient. (13) KAY (obstructive sleep apnea): - Does not use CPAP at home. (14) CKD (chronic kidney disease), stage III: - STABLE - Renally dose all meds (15) Systolic and diastolic CHF, chronic: - Most recent TTE showed EF 45% with wall motion abnormalities; repeat TTE is unchanged. - Monitor I/O's and daily weights. - Cannot tolerate beta blockers due to hypotension (16) Anemia: - Monitor CBC currently stable; transfuse for hgb <8 due to cardiac history. - Recent iron studies were c/w anemia of chronic disease. (17) Dementia: - Continue home Aricept 10 mg daily (18) Vitamin D deficiency: - Holding home Vit D supplementation. (19) GERD (gastroesophageal reflux disease): - Continue home PPI and Famotidine as prescribed. (20) DVT prophylaxis: - SCDs Dispo: Possibly [facility] [place] tomorrow Subjective Reports feeling well today. Had had multiple small bowel movements yesterday but did try and disimpact himself resulting in some bleeding. He reports small bowel movements today. He still has some drops in blood pressure upon standing but asymptomatic. Tolerating diet without issue. No CP or SOB. Review of Systems Constitutional: no fever and no chills Respiratory: no cough and no dyspnea Cardiovascular: no chest pain and no lightheadedness Gastrointestinal: no abdominal pain, no nausea, no vomiting, no constipation and no diarrhea/loose stools Genitourinary: no dysuria Integumentary: no rash Physical Exam Constitutional: + frail appearing; no acute distress and not ill appearing Eyes: + anicteric sclerae ENMT: Ears: no hearing impairment Neck: normal visual inspection and trachea midline Respiratory: normal respiratory effort, lungs clear to auscultation Cardiovascular: Rate/Rhythm: regular rate and regular rhythm Heart Sounds: + murmur Gastrointestinal (Abdomen): Inspection/Auscultation: normal bowel sounds Percussion/Palpation: abdomen soft; abdomen nontender Musculoskeletal: Head/Neck/Chest: normocephalic and head atraumatic Extremities: no cyanosis and no clubbing Skin: no rashes, warm and dry Neurologic: moves all extremities Psychiatric: A+Ox3, euthymic affect Results & Data Vital Signs (Past 12 Hours) Vital Signs Temp Pulse Pulse Resp BP Pulse Ox 07/29/18 10:52 36.5 C 67 98 07/29/18 08:40 68 07/29/18 08:00 68 07/29/18 07:19 36.8 C 71 20 91/57 L 97 07/29/18 04:38 36.6 C 65 18 99/60 L 98 (1) CAD (coronary artery disease) Coronary Disease-Associated Artery/Lesion type: [place] artery [place] vs. transplanted heart: [place] heart Associated angina: with unstable angina Qualified Code(s): I25.110 - Atherosclerotic heart disease of [place] coronary artery with unstable angina pectoris (2) HLD (hyperlipidemia) Hyperlipidemia type: pure hypercholesterolemia Qualified Code(s): E78.00 - Pure hypercholesterolemia, unspecified; E78.0 - Pure hypercholesterolemia (3) Aortic stenosis Cardiac valve disease etiology: etiology unspecified Qualified Code(s): I35.0 - Nonrheumatic aortic (valve) stenosis (4) AAA (abdominal aortic aneurysm) Presence of rupture: without rupture Qualified Code(s): I71.4 - Abdominal aortic aneurysm, without rupture
[2018-07-29] MEDS: ATORVASTATIN 40 MG TAB PO SCH (20:45)
--- NOTE | 2018-07-29 22:40 | Cardiology Progress Note ---
Date of Service July 29, 2018 Assessment & Plan (1) Non-ST elevation NE (NSTEMI): 2. Ischemic cardiomyopathy 3. Hypotension 4. Moderate 5. DM with recurrent hypoglycemia 6. Dementia 7. Anemia 8. Sinusitis No recurrent chest pain. No recurrent syncopal spells. Blood pressure has been stable. -- No change to current antianginal therapy with Ranexa alone. -- Continue ASA/Clopidogrel Continue high intensity statin Follow-up with cardiology in 2-3 weeks on discharge Subjective Primary concern today regarding constipation. Denies any recurrent chest pain. Denies significant shortness of breath. No further presyncopal episodes. Telemetry reviewedno events Review of Systems Review of Systems: All systems reviewed & are unremarkable except as noted in HPI & below Physical Exam Physical Exam: Ecchymosis at right radial artery access site, intact pulse Constitutional: WD/WN, vitals as above well developed Eyes: PERRL, conjunctivae normal, anicteric sclerae + anicteric sclerae Respiratory: normal respiratory effort, lungs clear to auscultation Cardiovascular: RRR, no murmur, no edema Gastrointestinal (Abdomen): normal bowel sounds, soft, nontender, no hepatosplenomegaly Skin: no rashes, warm and dry Neurologic: moves all extremities Psychiatric: A+Ox3, euthymic affect Orientation: alert Results & Data Vital Signs (Past 12 Hours) Vital Signs Temp Pulse Pulse Resp BP Pulse Ox 07/29/18 20:15 36.6 C 74 19 118/62 98 07/29/18 16:33 36.5 C 89 19 96/51 L 99 07/29/18 16:00 66 07/29/18 10:52 36.5 C 67 98
[2018-07-30] MEDS: FAMOTIDINE 20 MG TAB PO SCH ×2 (07:57→20:09)
[2018-07-30] MEDS: CLOPIDOGREL BISULFATE 75 MG TAB PO SCH (07:57)
[2018-07-30] MEDS: RANOLAZINE 500 MG ER TAB PO SCH ×2 (07:57→21:28)
[2018-07-30] MEDS: PANTOprazole 40 MG TAB PO SCH (07:58)
[2018-07-30] MEDS: ASPIRIN 81 MG ECTAB PO SCH (07:58)
[2018-07-30] MEDS: DONEPEZIL HCL 10 MG TAB PO SCH (07:58)
[2018-07-30] MEDS: FLUDROCORTISONE ACETATE 0.1 MG TAB PO SCH (07:58)
[2018-07-30] MEDS: DOCUSATE SODIUM/SENNA 50/8.6MG TAB PO SCH ×2 (09:13→20:14)
--- NOTE | 2018-07-30 17:39 | Hospitalist Progress Note ---
Date of Service July 30, 2018 Assessment & Plan (1) NSTEMI (non-ST elevated myocardial infarction): - Trop elevated ~3-4 during this admission - Limited TTE showed mildly reduced systolic function, concern for worsened inferior wall motion. - S/P Cath on 07/26 with ongoing CAD without ability to pass balloon and therefore plan to medical optimize symptoms - Heparin infusion has since been D/Cd - ASA 81 mg daily and Plavix 75 mg daily; Atorvastatin 40 mg daily; Ranexa increased recently to 1 g BID; Trialed Imdur however possibly contributing to orthostasis and was D/C'd appreciate cardiology input (2) CAD (coronary artery disease): - S/P CABG x 4 and subsequent stents; also had recent NSTEMI this spring; Cath on 06/09 with severe multivessel CAD - Continue aspirin, plavix, statin and ranexa. - Beta blockade & nitro patch contraindicated due to hypotension. (3) Hypotension: - BP has been labile and + orthostasis - however he is asymptomatic - by definition the readings today do drop but not enough to be called orthostasis - Had a syncopal episode on 07/27 - no other similar issues since, this was vasovagal, occurred while straining on the toilet - Holding Imdur/other nitros and BB theray - given his aortic stenosis will try and prevent hypotension - TEDs to B/L legs; Florinef 0.1 mg daily -- Will need to monitor this use due to risk of edema -- if still orthostatic in a week could increase dose to 0.2mg daily (4) Prolonged QT interval: - Avoid QT prolonging agents if possible; did complete course of Levaquin PO. - Monitor QTc - QT improved on EKG this AM (5) Rectal bleeding: - Denies H/O GI bleeding in past; was likely related to internal hemorrhoids; did attempt to self-disimpact and resulted in some BRBPR - Hemoglobin has been stable but slightly dropped today maybe from dilution; FOBT was negative. - Senokot S BID scheduled; MOM PRN; Anusol PRN; will add Dulcolax PRN (6) Cervical spine disease: - CT C-spine showed large posterior disc osteophyte complex at C6-C7 likely contributing to compromise of central canal. - MRI showed no acute process within spinal cord. - Ortho spine consulted -- changes are not likely leading to falls at home. (7) Recurrent falls: - Could be secondary to hypotensive episodes. - CT head was negative. - Planning on SNF for rehab - will monitor BP denied SNF today, will need peer to peer, wait until he is stronger (8) Metabolic encephalopathy: - May be related to underlying infection (?PNA vs. sinusitis) vs. hospital delirium with sundowning vs. dementia - alert and oriented to person today, can be forgetful at times but nothing to worry about (9) HLD (hyperlipidemia): - Continue statin as prescribed. (10) DM II (diabetes mellitus, type II), controlled: - Has been recently admitted for hypoglycemia following accidental insulin overdose at home. - Most recent A1C was 6.1 in June 2018. - Does not require treatment, no indication for gluc checks. (11) Aortic stenosis: - Moderate on recent cardiac cath. - Avoid hypotension (see above) (12) AAA (abdominal aortic aneurysm): - Currently stable, was 4.4 x 4.1 cm on most recent imaging. - Follow as outpatient. (13) KAY (obstructive sleep apnea): - Does not use CPAP at home. (14) CKD (chronic kidney disease), stage III: - STABLE - Renally dose all meds no labs today (15) Systolic and diastolic CHF, chronic: - Most recent TTE showed EF 45% with wall motion abnormalities; repeat TTE is unchanged. - Monitor I/O's and daily weights. - Cannot tolerate beta blockers due to hypotension (16) Anemia: - Monitor CBC currently stable; transfuse for hgb <8 due to cardiac history. - Recent iron studies were c/w anemia of chronic disease. (17) Dementia: - Continue home Aricept 10 mg daily (18) Vitamin D deficiency: - Holding home Vit D supplementation. (19) GERD (gastroesophageal reflux disease): - Continue home PPI and Famotidine as prescribed. (20) DVT prophylaxis: - SCDs Dispo: denied [facility] [facility] due to orthostasis, can do peer to peer on Thursday Subjective patient doing well today, no acute issues over night still with some orthostatic changes with therapy today, no symptoms eating well, moving bowels denies chest pain and dyspnea d/w CM, denied SNF by insurance for time being due to orthostatic changes will request peer to peer [facility] [place] due to timing of denial no labs today Review of Systems Review of Systems: All systems reviewed & are unremarkable except as noted in HPI & below Constitutional: no fever, no sweats, no fatigue and no weakness Respiratory: no cough and no dyspnea Cardiovascular: no chest pain, no chest pain at rest, no syncope and no edema Gastrointestinal: no abdominal pain, no nausea, no vomiting, no constipation and no diarrhea/loose stools Physical Exam Constitutional: WD/WN, vitals as above Eyes: PERRL, conjunctivae normal, anicteric sclerae ENMT: external ear and nose normal, oropharynx normal Neck: trachea midline, no thyromegaly Respiratory: normal respiratory effort, lungs clear to auscultation Cardiovascular: RRR, no murmur, no edema Gastrointestinal (Abdomen): normal bowel sounds, soft, nontender, no hepatosplenomegaly Musculoskeletal: Head/Neck/Chest: normocephalic, head atraumatic and neck supple Extremities: + abnormal strength (diffuse weakness); no cyanosis and no clubbing Skin: no rashes, warm and dry Neurologic: patellar DTR's 2+ bilat, sensation intact and PERRL, EOMI, accommodation nl, no face palsy, no dysarthria Psychiatric: Orientation: alert, oriented to person and cooperative; + not oriented to place and + not oriented to time Lymphatic: no cervical or axillary lymphadenopathy Results & Data Vital Signs (Past 12 Hours) Vital Signs Temp Pulse Pulse Resp BP Pulse Ox 07/30/18 15:48 72 07/30/18 15:27 36.7 C 64 20 100/51 L 94 07/30/18 11:03 36.8 C 60 20 97/71 L 97 07/30/18 09:37 97 07/30/18 08:20 69 07/30/18 06:47 36.6 C 68 16 103/45 L 97 Medications Administered Current Inpatient Medications Aspirin (Ecotrin Ectab) 81 mg PO DAILY [facility] Stop: 08/20/18 08:59 Last Admin: 07/30/18 07:58 Dose: 81 mg Documented by: Atorvastatin Calcium (Lipitor) 40 mg PO HS DAYSI Stop: 08/19/18 20:59 Last Admin: 07/29/18 20:45 Dose: 40 mg Documented by: Bisacodyl (Dulcolax) 10 mg MI DAILY PRN PRN Reason: Constipation Stop: 08/27/18 15:29 Last Admin: 07/29/18 11:13 Dose: 10 mg Documented by: Clopidogrel Bisulfate (Plavix) 75 mg PO DAILY [facility] Stop: 08/20/18 08:59 Last Admin: 07/30/18 07:57 Dose: 75 mg Documented by: Donepezil HCl (Aricept) 10 mg PO DAILY [facility] Stop: 08/20/18 08:59 Last Admin: 07/30/18 07:58 Dose: 10 mg Documented by: Famotidine (Pepcid) 20 mg PO BID [facility] Stop: 08/19/18 20:59 Last Admin: 07/30/18 07:57 Dose: 20 mg Documented by: Fludrocortisone Acetate (Florinef) 0.1 mg PO QAM [facility] Stop: 08/28/18 08:59 Last Admin: 07/30/18 07:58 Dose: 0.1 mg Documented by: Hydrocortisone (Proctozone Hc 2.5%) 1 appln EXT Q8H PRN PRN Reason: Hemorrhoids Stop: 08/21/18 10:24 Last Admin: 07/22/18 14:47 Dose: 1 appln Documented by: Isosorbide Mononitrate (Imdur Extended Rel) 30 mg PO QAM [facility] Stop: 08/25/18 18:29 Last Admin: 07/27/18 09:33 Dose: 30 mg Documented by: Magnesium Hydroxide (Milk Of Magnesia) 30 ml PO Q6H PRN PRN Reason: Constipation Stop: 08/21/18 10:23 Last Admin: 07/28/18 09:58 Dose: 30 ml Documented by: Nitroglycerin (Nitrostat) 0.4 mg SL PRN PRN PRN Reason: Chest Pain Stop: 08/21/18 21:30 Last Admin: 07/25/18 00:31 Dose: 0.4 mg Documented by: Pantoprazole Sodium (Protonix) 40 mg PO DAILY [facility] Stop: 08/20/18 08:59 Last Admin: 07/30/18 07:58 Dose: 40 mg Documented by: Ranolazine (Ranexa) 1,000 mg PO Q12 [facility] Stop: 08/22/18 20:59 Last Admin: 07/30/18 07:57 Dose: 1,000 mg Documented by: Senna/Docusate Sodium (Senokot S) 1 tab PO BID [facility] Stop: 08/21/18 20:59 Last Admin: 07/30/18 09:13 Dose: 1 tab Documented by: (1) CAD (coronary artery disease) Associated angina: with unstable angina Coronary Disease-Associated Artery/Lesion type: [place] artery [place] vs. transplanted heart: [place] heart Qualified Code(s): I25.110 - Atherosclerotic heart disease of [place] coronary artery with unstable angina pectoris (2) AAA (abdominal aortic aneurysm) Presence of rupture: without rupture Qualified Code(s): I71.4 - Abdominal aortic aneurysm, without rupture (3) Aortic stenosis Cardiac valve disease etiology: etiology unspecified Qualified Code(s): I35.0 - Nonrheumatic aortic (valve) stenosis (4) HLD (hyperlipidemia) Hyperlipidemia type: pure hypercholesterolemia Qualified Code(s): E78.00 - Pure hypercholesterolemia, unspecified; E78.0 - Pure hypercholesterolemia
[2018-07-30] MEDS: ATORVASTATIN 40 MG TAB PO SCH (20:08)
[2018-07-31] MEDS: FLUDROCORTISONE ACETATE 0.1 MG TAB PO SCH (09:14)
[2018-07-31] MEDS: FAMOTIDINE 20 MG TAB PO SCH ×2 (09:14→20:01)
[2018-07-31] MEDS: DONEPEZIL HCL 10 MG TAB PO SCH (09:14)
[2018-07-31] MEDS: CLOPIDOGREL BISULFATE 75 MG TAB PO SCH (09:14)
[2018-07-31] MEDS: PANTOprazole 40 MG TAB PO SCH (09:14)
[2018-07-31] MEDS: ASPIRIN 81 MG ECTAB PO SCH (09:14)
[2018-07-31] MEDS: DOCUSATE SODIUM/SENNA 50/8.6MG TAB PO SCH ×2 (09:58→19:59)
[2018-07-31] MEDS: RANOLAZINE 500 MG ER TAB PO SCH ×2 (09:58→20:01)
--- NOTE | 2018-07-31 14:56 | Hospitalist Progress Note ---
Date of Service July 31, 2018 Assessment & Plan (1) NSTEMI (non-ST elevated myocardial infarction): - Trop elevated ~3-4 during this admission - Limited TTE showed mildly reduced systolic function, concern for worsened inferior wall motion. - S/P Cath on 07/26 with ongoing CAD without ability to pass balloon and therefore plan to medical optimize symptoms - Heparin infusion has since been D/Cd - ASA 81 mg daily and Plavix 75 mg daily; Atorvastatin 40 mg daily; Ranexa increased recently to 1 g BID; Trialed Imdur however possibly contributing to orthostasis and was D/C'd appreciate cardiology input (2) CAD (coronary artery disease): - S/P CABG x 4 and subsequent stents; also had recent NSTEMI this spring; Cath on 06/09 with severe multivessel CAD - Continue aspirin, plavix, statin and ranexa. - Beta blockade & nitro patch contraindicated due to hypotension. (3) Hypotension: - BP has been labile and + orthostasis - however he is asymptomatic - by definition the readings today do drop but not enough to be called orthostasis - Had a syncopal episode on 07/27 - no other similar issues since, this was vasovagal, occurred while straining on the toilet - Holding Imdur/other nitros and BB theray - given his aortic stenosis will try and prevent hypotension - TEDs to B/L legs; Florinef 0.1 mg daily -- Will need to monitor this use due to risk of edema -- if still orthostatic in a week could increase dose to 0.2mg daily (4) Prolonged QT interval: - Avoid QT prolonging agents if possible; did complete course of Levaquin PO. - Monitor QTc - QT improved on EKG this AM (5) Rectal bleeding: - Denies H/O GI bleeding in past; was likely related to internal hemorrhoids; did attempt to self-disimpact and resulted in some BRBPR - Hemoglobin has been stable but slightly dropped today maybe from dilution; FOBT was negative. - Senokot S BID scheduled; MOM PRN; Anusol PRN; will add Dulcolax PRN (6) Cervical spine disease: - CT C-spine showed large posterior disc osteophyte complex at C6-C7 likely contributing to compromise of central canal. - MRI showed no acute process within spinal cord. - Ortho spine consulted -- changes are not likely leading to falls at home. (7) Recurrent falls: - Could be secondary to hypotensive episodes. - CT head was negative. - Planning on SNF for rehab - will monitor BP denied SNF, will need peer to peer, wait until he is stronger (8) Metabolic encephalopathy: - May be related to underlying infection (?PNA vs. sinusitis) vs. hospital delirium with sundowning vs. dementia - alert and oriented to person today, can be forgetful at times but nothing to worry about (9) HLD (hyperlipidemia): - Continue statin as prescribed. (10) DM II (diabetes mellitus, type II), controlled: - Has been recently admitted for hypoglycemia following accidental insulin overdose at home. - Most recent A1C was 6.1 in June 2018. - Does not require treatment, no indication for gluc checks. (11) Aortic stenosis: - Moderate on recent cardiac cath. - Avoid hypotension (see above) (12) AAA (abdominal aortic aneurysm): - Currently stable, was 4.4 x 4.1 cm on most recent imaging. - Follow as outpatient. (13) KAY (obstructive sleep apnea): - Does not use CPAP at home. (14) CKD (chronic kidney disease), stage III: - STABLE - Renally dose all meds no labs today (15) Systolic and diastolic CHF, chronic: - Most recent TTE showed EF 45% with wall motion abnormalities; repeat TTE is unchanged. - Monitor I/O's and daily weights. - Cannot tolerate beta blockers due to hypotension (16) Anemia: - Monitor CBC currently stable; transfuse for hgb <8 due to cardiac history. - Recent iron studies were c/w anemia of chronic disease. (17) Dementia: - Continue home Aricept 10 mg daily (18) Vitamin D deficiency: - Holding home Vit D supplementation. (19) GERD (gastroesophageal reflux disease): - Continue home PPI and Famotidine as prescribed. (20) DVT prophylaxis: - SCDs Dispo: denied [facility] due to orthostasis, can do peer to peer on Thursday Subjective patient feeling fine today discussed that he was denied [facility] for insurance reasons will transfer to medical floor continues to have low normal pressures eating well, no complaints denies chest pain Review of Systems Review of Systems: All systems reviewed & are unremarkable except as noted in HPI & below Cardiovascular: no chest pain, no dyspnea and no dyspnea on exertion Gastrointestinal: no abdominal pain, no nausea, no vomiting, no constipation and no diarrhea/loose stools Physical Exam Constitutional: WD/WN, vitals as above Eyes: PERRL, conjunctivae normal, anicteric sclerae ENMT: external ear and nose normal, oropharynx normal Neck: trachea midline, no thyromegaly Respiratory: normal respiratory effort, lungs clear to auscultation Cardiovascular: RRR, no murmur, no edema Gastrointestinal (Abdomen): normal bowel sounds, soft, nontender, no hepatosplenomegaly Musculoskeletal: Head/Neck/Chest: normocephalic, head atraumatic and neck supple Extremities: + abnormal strength (diffuse weakness); no cyanosis and no clubbing Skin: no rashes, warm and dry Neurologic: patellar DTR's 2+ bilat, sensation intact and PERRL, EOMI, accommodation nl, no face palsy, no dysarthria Psychiatric: Orientation: alert, oriented to person and cooperative; + not oriented to place and + not oriented to time Lymphatic: no cervical or axillary lymphadenopathy Results & Data Vital Signs (Past 12 Hours) Vital Signs Temp Pulse Resp BP BP Pulse Ox 07/31/18 10:12 36.7 C 78 20 100/68 93 07/31/18 07:34 36.4 C L 69 20 91/55 L 99 07/31/18 04:00 36.6 C 70 18 94/54 L 94 Medications Administered Current Inpatient Medications Aspirin (Ecotrin Ectab) 81 mg PO DAILY [facility] Stop: 08/20/18 08:59 Last Admin: 07/31/18 09:14 Dose: 81 mg Documented by: Atorvastatin Calcium (Lipitor) 40 mg PO HS [facility] Stop: 08/19/18 20:59 Last Admin: 07/30/18 20:08 Dose: 40 mg Documented by: Bisacodyl (Dulcolax) 10 mg [place] DAILY PRN PRN Reason: Constipation Stop: 08/27/18 15:29 Last Admin: 07/29/18 11:13 Dose: 10 mg Documented by: Clopidogrel Bisulfate (Plavix) 75 mg PO DAILY [facility] Stop: 08/20/18 08:59 Last Admin: 07/31/18 09:14 Dose: 75 mg Documented by: Donepezil HCl (Aricept) 10 mg PO DAILY [facility] Stop: 08/20/18 08:59 Last Admin: 07/31/18 09:14 Dose: 10 mg Documented by: Famotidine (Pepcid) 20 mg PO BID [facility] Stop: 08/19/18 20:59 Last Admin: 07/31/18 09:14 Dose: 20 mg Documented by: Fludrocortisone Acetate (Florinef) 0.1 mg PO QAM [facility] Stop: 08/28/18 08:59 Last Admin: 07/31/18 09:14 Dose: 0.1 mg Documented by: Hydrocortisone (Proctozone Hc 2.5%) 1 appln EXT Q8H PRN PRN Reason: Hemorrhoids Stop: 08/21/18 10:24 Last Admin: 07/22/18 14:47 Dose: 1 appln Documented by: Magnesium Hydroxide (Milk Of Magnesia) 30 ml PO Q6H PRN PRN Reason: Constipation Stop: 08/21/18 10:23 Last Admin: 07/28/18 09:58 Dose: 30 ml Documented by: Nitroglycerin (Nitrostat) 0.4 mg SL PRN PRN PRN Reason: Chest Pain Stop: 08/21/18 21:30 Last Admin: 07/25/18 00:31 Dose: 0.4 mg Documented by: Pantoprazole Sodium (Protonix) 40 mg PO DAILY [facility] Stop: 08/20/18 08:59 Last Admin: 07/31/18 09:14 Dose: 40 mg Documented by: Ranolazine (Ranexa) 1,000 mg PO Q12 [facility] Stop: 08/22/18 20:59 Last Admin: 07/31/18 09:58 Dose: 1,000 mg Documented by: Senna/Docusate Sodium (Senokot S) 1 tab PO BID [facility] Stop: 08/21/18 20:59 Last Admin: 07/31/18 09:58 Dose: 1 tab Documented by: (1) CAD (coronary artery disease) Coronary Disease-Associated Artery/Lesion type: [place] artery [place] vs. transplanted heart: [place] heart Associated angina: with unstable angina Qualified Code(s): I25.110 - Atherosclerotic heart disease of [place] coronary artery with unstable angina pectoris (2) HLD (hyperlipidemia) Hyperlipidemia type: pure hypercholesterolemia Qualified Code(s): E78.00 - Pure hypercholesterolemia, unspecified; E78.0 - Pure hypercholesterolemia (3) Aortic stenosis Cardiac valve disease etiology: etiology unspecified Qualified Code(s): I35.0 - Nonrheumatic aortic (valve) stenosis (4) AAA (abdominal aortic aneurysm) Presence of rupture: without rupture Qualified Code(s): I71.4 - Abdominal aortic aneurysm, without rupture
[2018-07-31] MEDS: ATORVASTATIN 40 MG TAB PO SCH (20:01)
[2018-08-01] MEDS: FLUDROCORTISONE ACETATE 0.1 MG TAB PO SCH (08:35)
[2018-08-01] MEDS: FAMOTIDINE 20 MG TAB PO SCH ×2 (08:35→20:58)
[2018-08-01] MEDS: ASPIRIN 81 MG ECTAB PO SCH (08:35)
[2018-08-01] MEDS: RANOLAZINE 500 MG ER TAB PO SCH ×2 (08:35→20:58)
[2018-08-01] MEDS: CLOPIDOGREL BISULFATE 75 MG TAB PO SCH (08:36)
[2018-08-01] MEDS: DONEPEZIL HCL 10 MG TAB PO SCH (08:36)
[2018-08-01] MEDS: PANTOprazole 40 MG TAB PO SCH (08:36)
[2018-08-01] MEDS: DOCUSATE SODIUM/SENNA 50/8.6MG TAB PO SCH ×2 (08:38→20:59)
--- NOTE | 2018-08-01 16:11 | Hospitalist Progress Note ---
Date of Service August 01, 2018 Assessment & Plan (1) NSTEMI (non-ST elevated myocardial infarction): - Trop elevated ~3-4 during this admission - Limited TTE showed mildly reduced systolic function, concern for worsened inferior wall motion. - S/P Cath on 07/26 with ongoing CAD without ability to pass balloon and therefore plan to medical optimize symptoms - Heparin infusion has since been D/Cd - ASA 81 mg daily and Plavix 75 mg daily; Atorvastatin 40 mg daily; Ranexa increased recently to 1 g BID; Trialed Imdur however possibly contributing to orthostasis and was D/C'd appreciate cardiology input (2) CAD (coronary artery disease): - S/P CABG x 4 and subsequent stents; also had recent NSTEMI this spring; Cath on 06/09 with severe multivessel CAD - Continue aspirin, plavix, statin and ranexa. - Beta blockade & nitro patch contraindicated due to hypotension. (3) Hypotension: - BP has been labile and + orthostasis - however he is asymptomatic - by definition the readings today do drop but not enough to be called orthostasis - Had a syncopal episode on 07/27 - no other similar issues since, this was vasovagal, occurred while straining on the toilet - Holding Imdur/other nitros and BB theray - given his aortic stenosis will try and prevent hypotension - TEDs to B/L legs; Florinef 0.1 mg daily -- Will need to monitor this use due to risk of edema -- if still orthostatic in a week could increase dose to 0.2mg daily pressures still drop slightly with standing, no symptoms (4) Prolonged QT interval: - Avoid QT prolonging agents if possible; did complete course of Levaquin PO. - Monitor QTc - QT improved on EKG this AM (5) Rectal bleeding: - Denies H/O GI bleeding in past; was likely related to internal hemorrhoids; did attempt to self-disimpact and resulted in some BRBPR - Hemoglobin has been stable but slightly dropped today maybe from dilution; FOBT was negative. - Senokot S BID scheduled; MOM PRN; Anusol PRN; will add Dulcolax PRN (6) Cervical spine disease: - CT C-spine showed large posterior disc osteophyte complex at C6-C7 likely contributing to compromise of central canal. - MRI showed no acute process within spinal cord. - Ortho spine consulted -- changes are not likely leading to falls at home. (7) Recurrent falls: - Could be secondary to hypotensive episodes. - CT head was negative. - Planning on SNF for rehab - will monitor BP denied SNF, will need peer to peer, wait until he is stronger on Thursday would need repeat PT/OT evaluations (8) Metabolic encephalopathy: - May be related to underlying infection (?PNA vs. sinusitis) vs. hospital delirium with ing vs. dementia - alert and oriented to person today, can be forgetful at times but nothing to worry about (9) HLD (hyperlipidemia): - Continue statin as prescribed. (10) DM II (diabetes mellitus, type II), controlled: - Has been recently admitted for hypoglycemia following accidental insulin overdose at home. - Most recent A1C was 6.1 in June 2018. - Does not require treatment, no indication for gluc checks. (11) Aortic stenosis: - Moderate on recent cardiac cath. - Avoid hypotension (see above) (12) AAA (abdominal aortic aneurysm): - Currently stable, was 4.4 x 4.1 cm on most recent imaging. - Follow as outpatient. (13) KAY (obstructive sleep apnea): - Does not use CPAP at home. (14) CKD (chronic kidney disease), stage III: - STABLE - Renally dose all meds no labs today (15) Systolic and diastolic CHF, chronic: - Most recent TTE showed EF 45% with wall motion abnormalities; repeat TTE is unchanged. - Monitor I/O's and daily weights. - Cannot tolerate beta blockers due to hypotension (16) Anemia: - Monitor CBC currently stable; transfuse for hgb <8 due to cardiac history. - Recent iron studies were c/w anemia of chronic disease. (17) Dementia: - Continue home Aricept 10 mg daily (18) Vitamin D deficiency: - Holding home Vit D supplementation. (19) GERD (gastroesophageal reflux disease): - Continue home PPI and Famotidine as prescribed. (20) DVT prophylaxis: - SCDs Dispo: denied [facility] due to orthostasis, can do peer to peer on Thursday prior to noon will need updated PT/OT notes Subjective patient doing well today, sitting up in chair eating lunch at time of my visit family at the bedside, updated them about the plan for [facility] after peer to peer BP has been low normal will get PT/OT evals again tomorrow no labs today Review of Systems Review of Systems: All systems reviewed & are unremarkable except as noted in HPI & below Constitutional: + fatigue and + weakness Respiratory: no cough and no dyspnea Cardiovascular: no chest pain and no edema Gastrointestinal: no abdominal pain, no nausea, no vomiting, no constipation and no diarrhea/loose stools Physical Exam Constitutional: WD/WN, vitals as above Eyes: PERRL, conjunctivae normal, anicteric sclerae ENMT: external ear and nose normal, oropharynx normal Neck: trachea midline, no thyromegaly Respiratory: normal respiratory effort, lungs clear to auscultation Cardiovascular: RRR, no murmur, no edema Gastrointestinal (Abdomen): normal bowel sounds, soft, nontender, no hepa tosplenomegaly Musculoskeletal: Head/Neck/Chest: normocephalic, head atraumatic and neck supple Extremities: + abnormal strength (slightly weak); no cyanosis and no clubbing Skin: no rashes, warm and dry Neurologic: patellar DTR's 2+ bilat, sensation intact and PERRL, EOMI, accommodation nl, no face palsy, no dysarthria Psychiatric: Orientation: alert, oriented to person and cooperative; + not oriented to place and + not oriented to time Lymphatic: no cervical or axillary lymphadenopathy Results & Data Vital Signs (Past 12 Hours) Vital Signs Temp Pulse Resp BP BP Pulse Ox 08/01/18 15:22 36.4 C L 64 18 108/62 08/01/18 07:00 36.5 C 66 18 111/61 98 Medications Administered Current Inpatient Medications Aspirin (Ecotrin Ectab) 81 mg PO DAILY [facility] Stop: 08/20/18 08:59 Last Admin: 08/01/18 08:35 Dose: 81 mg Documented by: Atorvastatin Calcium (Lipitor) 40 mg PO HS [facility] Stop: 08/19/18 20:59 Last Admin: 07/31/18 20:01 Dose: 40 mg Documented by: Bisacodyl (Dulcolax) 10 mg [place] DAILY PRN PRN Reason: Constipation Stop: 08/27/18 15:29 Last Admin: 07/29/18 11:13 Dose: 10 mg Documented by: Clopidogrel Bisulfate (Plavix) 75 mg PO DAILY [facility] Stop: 08/20/18 08:59 Last Admin: 08/01/18 08:36 Dose: 75 mg Documented by: Donepezil HCl (Aricept) 10 mg PO DAILY [facility] Stop: 08/20/18 08:59 Last Admin: 08/01/18 08:36 Dose: 10 mg Documented by: Famotidine (Pepcid) 20 mg PO BID [facility] Stop: 08/19/18 20:59 Last Admin: 08/01/18 08:35 Dose: 20 mg Documented by: Fludrocortisone Acetate (Florinef) 0.1 mg PO QAM [facility] Stop: 08/28/18 08:59 Last Admin: 08/01/18 08:35 Dose: 0.1 mg Documented by: Hydrocortisone (Proctozone Hc 2.5%) 1 appln EXT Q8H PRN PRN Reason: Hemorrhoids Stop: 08/21/18 10:24 Last Admin: 07/22/18 14:47 Dose: 1 appln Documented by: Magnesium Hydroxide (Milk Of Magnesia) 30 ml PO Q6H PRN PRN Reason: Constipation Stop: 08/21/18 10:23 Last Admin: 07/28/18 09:58 Dose: 30 ml Documented by: Nitroglycerin (Nitrostat) 0.4 mg SL PRN PRN PRN Reason: Chest Pain Stop: 08/21/18 21:30 Last Admin: 07/25/18 00:31 Dose: 0.4 mg Documented by: Pantoprazole Sodium (Protonix) 40 mg PO DAILY [facility] Stop: 08/20/18 08:59 Last Admin: 08/01/18 08:36 Dose: 40 mg Documented by: Ranolazine (Ranexa) 1,000 mg PO Q12 [facility] Stop: 08/22/18 20:59 Last Admin: 08/01/18 08:35 Dose: 1,000 mg Documented by: Senna/Docusate Sodium (Senokot S) 1 tab PO BID [facility] Stop: 08/21/18 20:59 Last Admin: 08/01/18 08:38 Dose: 1 tab Documented by: (1) CAD (coronary artery disease) Associated angina: with unstable angina Coronary Disease-Associated Artery/Lesion type: [place] artery [place] vs. transplanted heart: [place] heart Qualified Code(s): I25.110 - Atherosclerotic heart disease of [place] coronary artery with unstable angina pectoris (2) AAA (abdominal aortic aneurysm) Presence of rupture: without rupture Qualified Code(s): I71.4 - Abdominal aortic aneurysm, without rupture (3) Aortic stenosis Cardiac valve disease etiology: etiology unspecified Qualified Code(s): I35.0 - Nonrheumatic aortic (valve) stenosis (4) HLD (hyperlipidemia) Hyperlipidemia type: pure hypercholesterolemia Qualified Code(s): E78.00 - Pure hypercholesterolemia, unspecified; E78.0 - Pure hypercholesterolemia
[2018-08-01] MEDS: ATORVASTATIN 40 MG TAB PO SCH (20:58)
[2018-08-02] MEDS: DOCUSATE SODIUM/SENNA 50/8.6MG TAB PO SCH ×2 (07:55→20:51)
[2018-08-02] MEDS: FLUDROCORTISONE ACETATE 0.1 MG TAB PO SCH (07:59)
[2018-08-02] MEDS: CLOPIDOGREL BISULFATE 75 MG TAB PO SCH (07:59)
[2018-08-02] MEDS: PANTOprazole 40 MG TAB PO SCH (07:59)
[2018-08-02] MEDS: DONEPEZIL HCL 10 MG TAB PO SCH (07:59)
[2018-08-02] MEDS: FAMOTIDINE 20 MG TAB PO SCH ×2 (07:59→20:47)
[2018-08-02] MEDS: ASPIRIN 81 MG ECTAB PO SCH (07:59)
[2018-08-02] MEDS: RANOLAZINE 500 MG ER TAB PO SCH ×2 (07:59→20:47)
[2018-08-02] MEDS ORDERED: SODIUM CHLORIDE 0.9% 1000ML 500 ML IV ONE (11:06)
[2018-08-02] MEDS ORDERED: FLUDROCORTISONE ACETATE 0.1 MG TAB PO STA (11:06)
[2018-08-02 11:33] LABS: Basophils # (auto) 0.02 K/uL (0-0.2); Basophils % (auto) 0.3 %; Eosinophils # (auto) 0.15 K/uL (0-0.5); Eosinophils % (auto) 2.2 %; Hematocrit (blood only) 30.5 % (42-52); Hemoglobin 10.5 g/dL (14.0-18.0); Immature Granulocytes # (auto) 0.05 K/uL (0.00-0.02); Immature Granulocytes % (auto) 0.7 %; Lymphocytes # (auto) 1.74 K/uL (1.2-3.4); Lymphocytes % (auto) 25.5 %; Mean Corpuscular Hgb Conc 34.4 g/dL (32-36); Mean Corpuscular Volume 86.2 fL (80-100); Mean Platelet Volume 9.1 fL (7.4-10.4); Monocytes # (auto) 0.66 K/uL (0.11-0.59); Monocytes % (auto) 9.7 %; Neutrophils # (auto) 4.21 K/uL (1.4-6.5); Neutrophils % (auto) 61.6 %; Platelet Count 288 K/uL (130-400); RDW Coefficient of Variation 15.4 % (11.5-14.5); RDW Standard Deviation 48.2 fL (36.4-46.3); Red Blood Count 3.54 M/uL (4.7-6.1); White Blood Count 6.83 K/uL (4.8-10.8)
[2018-08-02 11:57] LABS: Calcium 8.7 mg/dl (8.5-10.1); Creatinine Clr Calc Pharmacy 43.8 ml/min; Est GFR (African American) 55.4; Est GFR (Non-African American) 47.8; Potassium 3.6 mmol/L (3.5-5.1)
--- NOTE | 2018-08-02 12:27 | Hospitalist Progress Note ---
Date of Service August 02, 2018 Assessment & Plan (1) NSTEMI (non-ST elevated myocardial infarction): - Trop elevated ~3-4 during this admission - Limited TTE showed mildly reduced systolic function, concern for worsened inferior wall motion abnormality. - S/P Cath on 07/26 with ongoing CAD without ability to pass balloon and therefore plan to medical optimize symptoms - Heparin infusion has since been D/Cd No further angina at this time -Continue ASA 81 mg daily and Plavix 75 mg daily; high intensity statin with atorvastatin 40 mg daily; antianginal therapy with Ranexa increased recently to 1 g BID; Trialed Imdur and nitro patch however possibly contributing to orthostasis and hypotension and was D/C'd appreciate cardiology input-we will need follow-up in the outpatient office in 2 weeks after discharge (2) CAD (coronary artery disease): - S/P CABG x 4 and subsequent stents; also had recent NSTEMI this spring; Cath on 06/09 with severe multivessel CAD and again this admission with severe disease not amenable to stenting - Continue aspirin, plavix, statin and ranexa. - Beta blockade & nitro patch have since been discontinued due to hypotension. (3) Hypotension: - BP has been labile and with continued + orthostasis -with symptoms of dizziness today - Had a syncopal episode on 07/27 - no other similar issues since, this was vasovagal, occurred while straining on the toilet -Discontinued Imdur/other nitros and beta-ross therapy- given his aortic stenosis will try and prevent hypotension -He did not have his MEGAN hose on-ordered them again today and discussed with nursing to place -Increase Florinef to 0.2 mg daily -- Will need to monitor this use due to risk of edema -Follow orthostatics in the morning and if improved, can go to rehab (4) Prolonged QT interval: - Avoid QT prolonging agents if possible; did complete course of Levaquin PO. - Monitor QTc - QT improved on repeat EKG (5) Rectal bleeding: - Denies H/O GI bleeding in past; was likely related to internal hemorrhoids; did attempt to self-disimpact and resulted in some BRBPR - Hemoglobin has been stable at 10.5, FOBT was negative. -Continue Senokot S BID scheduled; MOM PRN; Anusol PRN; Dulcolax PRN (6) Cervical spine disease: - CT C-spine showed large posterior disc osteophyte complex at C6-C7 likely contributing to compromise of central canal. - MRI showed no acute process within spinal cord. - Ortho spine consulted -- changes are not likely leading to falls at home. (7) Recurrent falls: - Could be secondary to hypotensive/orthostatic episodes. - CT head was negative. - Planning on SNF for rehab when orthostasis resolved- will monitor BP (8) Metabolic encephalopathy: - May be related to underlying infection (?PNA vs. sinusitis) vs. hospital delirium with sundowning vs. dementia - alert and oriented to person today, can be forgetful at times but nothing to worry about (9) HLD (hyperlipidemia): - Continue statin as prescribed. (10) DM II (diabetes mellitus, type II), controlled: - Has been recently admitted for severe hypoglycemia following accidental insulin overdose at home. - Most recent A1C was 6.1 in June 2018. - Does not require treatment, no indication for gluc checks. (11) Aortic stenosis: - Moderate on recent cardiac cath. - Avoid hypotension (see above) (12) AAA (abdominal aortic aneurysm): - Currently stable, was 4.4 x 4.1 cm on most recent imaging. - Follow as outpatient. (13) KAY (obstructive sleep apnea): - Does not use CPAP at home. (14) CKD (chronic kidney disease), stage III: - STABLE - Renally dose all meds (15) Systolic and diastolic CHF, chronic: - Most recent TTE showed EF 45% with wall motion abnormalities; repeat TTE is unchanged. - Monitor I/O's and daily weights. - Cannot tolerate beta blockers due to hypotension (16) Anemia: - Monitor CBC currently stable; transfuse for hgb <8 due to cardiac history. - Recent iron studies were c/w anemia of chronic disease. (17) Dementia: - Continue home Aricept 10 mg daily (18) Vitamin D deficiency: - Holding home Vit D supplementation. (19) GERD (gastroesophageal reflux disease): - Continue home PPI and Famotidine as prescribed. (20) DVT prophylaxis: - SCDs, TEDs, aspirin, Plavix Dispo: denied insurance off for SNF due to ongoing orthostasis, called and updated the insurance physician today and she recommended calling back when he is medically stable for discharge -Will need updated PT/OT notes prior to calling back at that time Subjective Patient has no complaints at all. He is tolerating p.o., no nausea or vomiting. No chest pain shortness of breath. No abdominal pain. He is anxiously awaiting discharge. He does remain dizzy with sitting up and with standing and his orthostatics were grossly positive again today. He claims he is drinking as much as he can. Review of Systems Review of Systems: All systems reviewed & are unremarkable except as noted in HPI & below Physical Exam Constitutional: WD/WN, vitals as above Eyes: PERRL, conjunctivae normal, anicteric sclerae ENMT: external ear and nose normal, oropharynx normal Neck: trachea midline, no thyromegaly Respiratory: normal respiratory effort, lungs clear to auscultation Cardiovascular: Rate/Rhythm: regular rate and regular rhythm Heart Sounds: + murmur (3/6 systolic at the RUSB) Extremities: no calf tenderness and no edema Gastrointestinal (Abdomen): normal bowel sounds, soft, nontender, no hepatosplenomegaly Musculoskeletal: Extremities: extremities normal to inspection; no cyanosis and no clubbing Skin: no rashes, warm and dry Neurologic: moves all extremities and awake; no focal motor deficits Psychiatric: A+Ox3, euthymic affect Results & Data Vital Signs (Past 12 Hours) Vital Signs Temp Pulse Resp BP Pulse Ox 08/02/18 07:00 36.6 C 80 18 120/75 93 Laboratory Results 08/02/18 08/02/18 Range/Units 11:17 11:17 WBC 6.83 (4.8-10.8) K/uL RBC 3.54 L (4.7-6.1) M/uL Hgb 10.5 L (14.0-18.0) g/dL Hct 30.5 L (42-52) % MCV 86.2 (80-100) fL MCH 29.7 (25-34) pg MCHC 34.4 (32-36) g/dL RDW Std Deviation 48.2 H (36.4-46.3) fL RDW Coeff of Sandra 15.4 H (11.5-14.5) % Plt Count 288 (130-400) K/uL MPV 9.1 (7.4-10.4) fL Immature Gran % (Auto) 0.7 % Neut % (Auto) 61.6 % Lymph % (Auto) 25.5 % Stephenson % (Auto) 9.7 % Eos % (Auto) 2.2 % Baso % (Auto) 0.3 % Immature Gran # (Auto) 0.05 H (0.00-0.02) K/uL Neut # (Auto) 4.21 (1.4-6.5) K/uL Lymph # (Auto) 1.74 (1.2-3.4) K/uL Stephenson # (Auto) 0.66 H (0.11-0.59) K/uL Eos # (Auto) 0.15 (0-0.5) K/uL Baso # (Auto) 0.02 (0-0.2) K/uL Sodium 141 (136-145) mmol/L Potassium 3.6 (3.5-5.1) mmol/L Chloride 107 (98-107) mmol/L Carbon Dioxide 28 (21-32) mmol/L Anion Gap 6.0 (3-11) BUN 15 (7-18) mg/dl Creatinine 1.36 (0.6-1.4) mg/dl Est Cr Clr Drug Dosing 43.8 ml/min Est GFR ( Amer) 55.4 Est GFR (Non-Af Amer) 47.8 BUN/Creatinine Ratio 11.0 (10-20) Glucose 117 H (70-99) mg/dl Calcium 8.7 (8.5-10.1) mg/dl Magnesium 2.0 (1.8-2.4) mg/dl (1) CAD (coronary artery disease) Associated angina: with unstable angina Coronary Disease-Associated Artery/Lesion type: [place] artery [place] vs. transplanted heart: [place] heart Qualified Code(s): I25.110 - Atherosclerotic heart disease of [place] coronary artery with unstable angina pectoris (2) AAA (abdominal aortic aneurysm) Presence of rupture: without rupture Qualified Code(s): I71.4 - Abdominal aortic aneurysm, without rupture (3) Aortic stenosis Cardiac valve disease etiology: etiology unspecified Qualified Code(s): I35.0 - Nonrheumatic aortic (valve) stenosis (4) HLD (hyperlipidemia) Hyperlipidemia type: pure hypercholesterolemia Qualified Code(s): E78.00 - Pure hypercholesterolemia, unspecified; E78.0 - Pure hypercholesterolemia
[2018-08-02] MEDS: ATORVASTATIN 40 MG TAB PO SCH (20:47)
[2018-08-03] MEDS: DONEPEZIL HCL 10 MG TAB PO SCH (07:39)
[2018-08-03] MEDS: FLUDROCORTISONE ACETATE 0.1 MG TAB PO SCH (07:39)
[2018-08-03] MEDS: CLOPIDOGREL BISULFATE 75 MG TAB PO SCH (07:39)
[2018-08-03] MEDS: FAMOTIDINE 20 MG TAB PO SCH ×2 (07:39→21:08)
[2018-08-03] MEDS: PANTOprazole 40 MG TAB PO SCH (07:39)
[2018-08-03] MEDS: RANOLAZINE 500 MG ER TAB PO SCH ×2 (07:39→21:08)
[2018-08-03] MEDS: ASPIRIN 81 MG ECTAB PO SCH (07:39)
[2018-08-03] MEDS: DOCUSATE SODIUM/SENNA 50/8.6MG TAB PO SCH ×2 (07:42→21:09)
[2018-08-03] MEDS: DICLOFENAC SOD 1% GEL 100 GM TUBE EXT SCH ×3 (13:01→21:10)
[2018-08-03] MEDS: ATORVASTATIN 40 MG TAB PO SCH (21:08)
--- NOTE | 2018-08-03 22:20 | Hospitalist Progress Note ---
Date of Service August 03, 2018 Assessment & Plan (1) Hypotension: - BP has been labile and with continued + orthostasis -now asymptomatic but blood pressures continue to drop in the 70s and 80s systolic with standing despite adding MEGAN hose, increasing Florinef, and discontinuing all antihyper tensives - Had a syncopal episode on 07/27 - no other similar issues since, this was vasovagal, occurred while straining on the toilet -Unclear etiology for orthostasis. Donepezil could cause orthostasis as well -Discontinue donepezil -Discontinued Imdur/other nitros and beta-ross therapy- given his aortic stenosis will try and prevent hypotension -Continue MEGAN hose -Continue Florinef to 0.2 mg daily -- Will need to monitor this use due to risk of edema -Start midodrine 2.5 mg p.o. 3 times daily and watch closely for development of cardiac symptoms -Follow orthostatics again tomorrow (2) NSTEMI (non-ST elevated myocardial infarction): - Trop elevated ~3-4 during this admission - Limited TTE showed mildly reduced systolic function, concern for worsened inferior wall motion abnormality. - S/P Cath on 07/26 with ongoing CAD without ability to pass balloon and therefore plan to medical optimize symptoms - Heparin infusion has since been D/Cd No further angina at this time -Continue ASA 81 mg daily and Plavix 75 mg daily; high intensity statin with atorvastatin 40 mg daily; antianginal therapy with Ranexa increased recently to 1 g BID; Trialed Imdur and nitro patch however possibly contributing to orthostasis and hypotension and was D/C'd appreciate cardiology input-we will need follow-up in the outpatient office in 2 weeks after discharge (3) CAD (coronary artery disease): - S/P CABG x 4 and subsequent stents; also had recent NSTEMI this spring; Cath on 06/09 with severe multivessel CAD and again this admission with severe disease not amenable to stenting - Continue aspirin, plavix, statin and ranexa. - Beta blockade & nitro patch have since been discontinued due to hypotension. (4) Rectal bleeding: - Denies H/O GI bleeding in past; was likely related to internal hemorrhoids; did attempt to self-disimpact and resulted in some BRBPR - Hemoglobin has been stable at 10.5, FOBT was negative. -Continue Senokot S BID scheduled; MOM PRN; Anusol PRN; Dulcolax PRN (5) Cervical spine disease: - CT C-spine showed large posterior disc osteophyte complex at C6-C7 likely contributing to compromise of central canal. - MRI showed no acute process within spinal cord. - Ortho spine consulted -- changes are not likely leading to falls at home. (6) Recurrent falls: - Could be secondary to hypotensive/orthostatic episodes. - CT head was negative. - Planning on SNF for rehab when orthostasis resolved- will monitor BP (7) Metabolic encephalopathy: - May be related to underlying infection (?PNA vs. sinusitis) vs. hospital delirium with sundowning vs. dementia on admission--now completely resolved (8) HLD (hyperlipidemia): - Continue statin as prescribed. (9) DM II (diabetes mellitus, type II), controlled: - Has been recently admitted for severe hypoglycemia following accidental insulin overdose at home. - Most recent A1C was 6.1 in June 2018. - Does not require treatment, no indication for gluc checks. (10) Aortic stenosis: - Moderate on recent cardiac cath. - Avoid hypotension (see above) (11) AAA (abdominal aortic aneurysm): - Currently stable, was 4.4 x 4.1 cm on most recent imaging. - Follow as outpatient. (12) KAY (obstructive sleep apnea): - Does not use CPAP at home. (13) CKD (chronic kidney disease), stage III: - STABLE - Renally dose all meds (14) Systolic and diastolic CHF, chronic: - Most recent TTE showed EF 45% with wall motion abnormalities; repeat TTE is unchanged. - Monitor I/O's and daily weights. - Cannot tolerate beta blockers due to hypotension (15) Anemia: - Monitor CBC currently stable; transfuse for hgb <8 due to cardiac history. - Recent iron studies were c/w anemia of chronic disease. (16) Dementia: - will dc Aricept 10 mg daily in case contributing to orthostasis (17) Vitamin D deficiency: - Holding home Vit D supplementation. (18) GERD (gastroesophageal reflux disease): - Continue home PPI and Famotidine as prescribed. (19) Prolonged QT interval: - Avoid QT prolonging agents if possible; did complete course of Levaquin PO. - Monitor QTc - QT improved on repeat EKG (20) DVT prophylaxis: - SCDs, TEDs, aspirin, Plavix Dispo: denied insurance auth for SNF due to ongoing orthostasis, will call back to insurance company for auth when he is medically stable for discharge- hopefully when orthostasis is improved -Will need updated PT/OT notes prior to calling back at that time Subjective Patient feeling very well, denies any dizziness with sitting or with standing today. His blood pressure still did drop into the 80s systolic with standing. Denies chest pain or shortness of breath. He is tolerating p.o. very well. He has no complaints. He is anxious for discharge Review of Systems Review of Systems: All systems reviewed & are unremarkable except as noted in HPI & below Physical Exam Constitutional: WD/WN, vitals as above Eyes: PERRL, conjunctivae normal, anicteric sclerae Neck: trachea midline, no thyromegaly Respiratory: normal respiratory effort, lungs clear to auscultation Cardiovascular: Rate/Rhythm: regular rate and regular rhythm Heart Sounds: + murmur (3/6 systolic at the RUSB) Extremities: no calf tenderness and no edema Gastrointestinal (Abdomen): normal bowel sounds, soft, nontender, no hepatosplenomegaly Musculoskeletal: Extremities: extremities normal to inspection; no cyanosis and no clubbing Skin: no rashes, warm and dry Neurologic: moves all extremities and awake; no focal motor deficits Psychiatric: A+Ox3, euthymic affect Results & Data Vital Signs (Past 12 Hours) Vital Signs Temp Pulse Resp BP Pulse Ox 08/03/18 15:21 36.5 C 86 21 95/53 L 93 (1) CAD (coronary artery disease) Coronary Disease-Associated Artery/Lesion type: [place] artery [place] vs. transplanted heart: [place] heart Associated angina: with unstable angina Qualified Code(s): I25.110 - Atherosclerotic heart disease of [place] coronary artery with unstable angina pectoris (2) HLD (hyperlipidemia) Hyperlipidemia type: pure hypercholesterolemia Qualified Code(s): E78.00 - Pure hypercholesterolemia, unspecified; E78.0 - Pure hypercholesterolemia (3) Aortic stenosis Cardiac valve disease etiology: etiology unspecified Qualified Code(s): I35.0 - Nonrheumatic aortic (valve) stenosis (4) AAA (abdominal aortic aneurysm) Presence of rupture: without rupture Qualified Code(s): I71.4 - Abdominal aortic aneurysm, without rupture
[2018-08-04] MEDS ORDERED: ACETAMINOPHEN 325 MG TAB PO PRN (01:01)
[2018-08-04] MEDS: FLUDROCORTISONE ACETATE 0.1 MG TAB PO SCH (08:34)
[2018-08-04] MEDS: ASPIRIN 81 MG ECTAB PO SCH (08:34)
[2018-08-04] MEDS: DONEPEZIL HCL 10 MG TAB PO SCH (08:34)
[2018-08-04] MEDS: MIDODRINE HCL 2.5 MG TAB PO SCH ×3 (08:34→17:08)
[2018-08-04] MEDS: CLOPIDOGREL BISULFATE 75 MG TAB PO SCH (08:34)
[2018-08-04] MEDS: PANTOprazole 40 MG TAB PO SCH (08:34)
[2018-08-04] MEDS: RANOLAZINE 500 MG ER TAB PO SCH ×2 (08:35→20:29)
[2018-08-04] MEDS: DICLOFENAC SOD 1% GEL 100 GM TUBE EXT SCH ×4 (08:35→20:29)
[2018-08-04] MEDS: FAMOTIDINE 20 MG TAB PO SCH ×2 (08:35→20:29)
[2018-08-04] MEDS: DOCUSATE SODIUM/SENNA 50/8.6MG TAB PO SCH ×2 (08:37→20:29)
--- NOTE | 2018-08-04 14:09 | Hospitalist Progress Note ---
Date of Service August 04, 2018 Assessment & Plan (1) Hypotension: - BP has been labile and had continued + orthostasis -now BPS improved with starting midodrine but still in the 80s systolic at times -is now asymptomatic with it but don't want his BP dropping that low with his aortic stenosis - Had a syncopal episode on 07/27 - no other similar issues since, this was vasovagal, occurred while straining on the toilet -Unclear etiology for orthostasis. Donepezil could cause orthostasis. AM Co rtisol level checked one month ago when had hypoglycemia and was 18 -Discontinue donepezil-was to be done yesterday but was overlooked -Discontinued Imdur/other nitros and beta-ross therapy- given his aortic stenosis will try and prevent hypotension -Continue MEGAN hose -Continue Florinef to 0.2 mg daily -- Will need to monitor this use due to risk of edema -increase midodrine to 5 mg p.o. 3 times daily and watch closely for development of cardiac symptoms -Follow orthostatics (2) NSTEMI (non-ST elevated myocardial infarction): - Trop elevated ~3-4 during this admission - Limited TTE showed mildly reduced systolic function, concern for worsened inferior wall motion abnormality. - S/P Cath on 07/26 with ongoing CAD without ability to pass balloon and therefore plan to medical optimize symptoms - Heparin infusion has since been D/Cd No further angina at this time -Continue ASA 81 mg daily and Plavix 75 mg daily; high intensity statin with at orvastatin 40 mg daily; antianginal therapy with Ranexa increased recently to 1 g BID; Trialed Imdur and nitro patch however possibly contributing to orthostasis and hypotension and was D/C'd appreciate cardiology input-we will need follow-up in the outpatient office in 2 weeks after discharge (3) CAD (coronary artery disease): - S/P CABG x 4 and subsequent stents; also had recent NSTEMI this spring; Cath on 06/09 with severe multivessel CAD and again this admission with severe disease not amenable to stenting - Continue aspirin, plavix, statin and ranexa. - Beta blockade & nitro patch have since been discontinued due to hypotension. (4) Rectal bleeding: - Denies H/O GI bleeding in past; was likely related to internal hemorrhoids; did attempt to self-disimpact and resulted in some BRBPR - Hemoglobin has been stable at 10.5, FOBT was negative. -Continue Senokot S BID scheduled; MOM PRN; Anusol PRN; Dulcolax PRN (5) Cervical spine disease: - CT C-spine showed large posterior disc osteophyte complex at C6-C7 likely contributing to compromise of central canal. - MRI showed no acute process within spinal cord. - Ortho spine consulted -- changes are not likely leading to falls at home. (6) Recurrent falls: - Could be secondary to hypotensive/orthostatic episodes. - CT head was negative. - Planning on SNF for rehab when orthostasis resolved- will monitor BP (7) Metabolic encephalopathy: - May be related to underlying infection (?PNA vs. sinusitis) upon admission vs. hospital delirium with sundowning vs. dementia on admission--now completely resolved (8) HLD (hyperlipidemia): - Continue statin as prescribed. (9) DM II (diabetes mellitus, type II), controlled: - Has been recently admitted for severe hypoglycemia following accidental insulin overdose at home. - Most recent A1C was 6.1 in June 2018. - Does not require treatment, no indication for gluc checks. (10) Aortic stenosis: - Moderate on recent cardiac cath. - Avoid hypotension (see above) (11) AAA (abdominal aortic aneurysm): - Currently stable, was 4.4 x 4.1 cm on most recent imaging. - Follow as outpatient. (12) KAY (obstructive sleep apnea): - Does not use CPAP at home. (13) CKD (chronic kidney disease), stage III: - STABLE - Renally dose all meds (14) Systolic and diastolic CHF, chronic: - Most recent TTE showed EF 45% with wall motion abnormalities; repeat TTE is unchanged. - Monitor I/O's and daily weights. - Cannot tolerate beta blockers due to hypotension (15) Anemia: - Monitor CBC currently stable; transfuse for hgb <8 due to cardiac history. - Recent iron studies were c/w anemia of chronic disease. (16) Dementia: - will dc Aricept 10 mg daily in case contributing to orthostasis (17) Vitamin D deficiency: - Holding home Vit D supplementation. (18) GERD (gastroesophageal reflux disease): - Continue home PPI and Famotidine as prescribed. (19) Prolonged QT interval: - Avoid QT prolonging agents if possible; did complete course of Levaquin PO. - Monitor QTc - QT improved on repeat EKG (20) DVT prophylaxis: - SCDs, TEDs, aspirin, Plavix Dispo: denied insurance auth for SNF due to ongoing orthostasis, will call back to insurance company for auth when he is medically stable for discharge- hopefully when orthostasis is improved -Will need updated PT/OT notes-being done today now that orthostasis is improved and he is asymptomatic Subjective Pt feels great. Denies any chest pain with starting midodrine. Denies lightheadedness or dizziness at all or with standing. He is eating well, drinking well. No other concerns other than when he is to be discharged. Orthostatics still mildly positive Review of Systems Review of Systems: All systems reviewed & are unremarkable except as noted in HPI & below Physical Exam Constitutional: WD/WN, vitals as above Eyes: PERRL, conjunctivae normal, anicteric sclerae Neck: trachea midline, no thyromegaly Respiratory: normal respiratory effort, lungs clear to auscultation Cardiovascular: Rate/Rhythm: regular rate and regular rhythm Heart Sounds: + murmur (3/6 systolic at the RUSB) Extremities: no calf tenderness and no edema Gastrointestinal (Abdomen): normal bowel sounds, soft, nontender, no hepatosplenomegaly Musculoskeletal: Extremities: extremities normal to inspection; no cyanosis and no clubbing Skin: no rashes, warm and dry Neurologic: moves all extremities and awake; no focal motor deficits Psychiatric: A+Ox3, euthymic affect Results & Data Vital Signs (Past 12 Hours) Vital Signs Temp Pulse Resp BP BP Pulse Ox 08/04/18 08:00 64 20 109/64 99 08/04/18 07:27 36.7 C 65 20 109/69 97 (1) CAD (coronary artery disease) Coronary Disease-Associated Artery/Lesion type: [place] artery [place] vs. transplanted heart: [place] heart Associated angina: with unstable angina Qualified Code(s): I25.110 - Atherosclerotic heart disease of [place] coronary artery with unstable angina pectoris (2) HLD (hyperlipidemia) Hyperlipidemia type: pure hypercholesterolemia Qualified Code(s): E78.00 - Pure hypercholesterolemia, unspecified; E78.0 - Pure hypercholesterolemia (3) Aortic stenosis Cardiac valve disease etiology: etiology unspecified Qualified Code(s): I35.0 - Nonrheumatic aortic (valve) stenosis (4) AAA (abdominal aortic aneurysm) Presence of rupture: without rupture Qualified Code(s): I71.4 - Abdominal aortic aneurysm, without rupture
[2018-08-04] MEDS: ATORVASTATIN 40 MG TAB PO SCH (20:29)
[2018-08-05] MEDS: PANTOprazole 40 MG TAB PO SCH (08:43)
[2018-08-05] MEDS: CLOPIDOGREL BISULFATE 75 MG TAB PO SCH (08:43)
[2018-08-05] MEDS: RANOLAZINE 500 MG ER TAB PO SCH (08:44)
[2018-08-05] MEDS: FAMOTIDINE 20 MG TAB PO SCH (08:44)
[2018-08-05] MEDS: FLUDROCORTISONE ACETATE 0.1 MG TAB PO SCH (08:44)
[2018-08-05] MEDS: MIDODRINE HCL 2.5 MG TAB PO SCH ×3 (08:44→16:53)
[2018-08-05] MEDS: ASPIRIN 81 MG ECTAB PO SCH (08:44)
[2018-08-05] MEDS: DOCUSATE SODIUM/SENNA 50/8.6MG TAB PO SCH (08:45)
[2018-08-05] MEDS: DICLOFENAC SOD 1% GEL 100 GM TUBE EXT SCH ×3 (08:45→16:54)
--- NOTE | 2018-08-05 16:50 | Discharge Summary ---
Date of Service August 05, 2018 Admission HPI Per Admitting Provider Mr. Alegria is a 82 year old male with past medical history of AAA, chronic combined heart failure, CAD, HTN, HLD, aortic stenosis, PVD, Type II DM, GERD, Anemia, KAY, Vascular and Alzheimer's Dementia, Stage III CKD, Vit D deficiency who presented with recurrent falls at home and URI symptoms. Pt. had been admitted multiple occasions over the last 2 months for cardiac issues along with hypoglycemic episodes. He was most recently admitted 06/27-07/02 for hypoglycemia; he was instructed to discontinue insulin at home. Pt. presented to the ER today; limited history was obtained due to confusion/lethargy. He reports having a cough, denies sputum production, chest pain, SOB, myalgias, fever/chills. Denies nausea/vomiting, diarrhea or constipation, dysuria. He also reports falling frequently at home but cannot recall the last time he fell. He lives with his ; his son lives in an apartment above him and helps to care for him at home. CXR, CT head and C-spine were negative in the ER except for noted pansinusitis on CT of the head and a large posterior disc osteophyte complex at C6-C7 likely contribute to acquired compromise of the central canal. U/a +ketones, otherwise negative; blood cultures are pending. EKG showed an incomplete right bundle branch block. He received Ceftriaxone and Levaquin for empiric coverage of PNA along with 2L NS bolus. He will be admitted for further work up/evaluation. Principal Diagnosis Orthostatic hypotension, falls, NSTEMI Discharge Exam Constitutional WD/WN, vitals as above Eyes PERRL, conjunctivae normal, anicteric sclerae Neck trachea midline, no thyromegaly Respiratory normal respiratory effort, lungs clear to auscultation Cardiovascular Rate/Rhythm: regular rate and regular rhythm Heart Sounds: + murmur (3/6 systolic at the RUSB) Extremities: no calf tenderness and no edema Gastrointestinal (Abdomen) normal bowel sounds, soft, nontender, no hepatosplenomegaly Musculoskeletal Extremities: extremities normal to inspection; no cyanosis and no clubbing Skin no rashes, warm and dry Neurologic moves all extremities and awake; no focal motor deficits Psychiatric A+Ox3, euthymic affect Discharge Data Allergies Allergy/AdvReac Type Severity Reaction Status Date / Time iodine Allergy Severe Unknown Verified 07/20/18 14:42 Penicillins Allergy Severe AMOXIL = Verified 07/20/18 14:42 ANAPHYLACTIC RXN clavulanic acid Allergy Unknown Unknown Verified 07/20/18 14:42 morphine AdvReac Mild VOMITING Verified 07/20/18 14:42 Consultations 07/20/18 15:34 ED Decision to Admit Stat 07/20/18 16:54 Consult Orthopedic Surgery Routine 07/22/18 13:53 Consult Cardiology Routine Procedures Performed Operation Date: 07/26/18 06:45 Actual Procedures p Cath, Left w/Cors Vent Grafts - Jacob Christine MD s Cineradiography w/Routine Exam - Jacob Christine MD s Ultrasound Vascular Access - Jacob Christine MD Ordered Studies 07/20/18 14:34 CT cervical spine wo con Stat CT head/brain wo con Stat 07/20/18 17:08 MR cervical spine wo/w con Urgent 07/26/18 06:51 CL Cath Imgs for PACS use only Routine Chest x-ray Echocardiogram Hospital Course (1) Hypotension: - BP has been labile and had continued + orthostasis -now BPs improved with starting midodrine but still in the 80s systolic at times -is now asymptomatic with low blood pressures - Had a syncopal episode on 07/27 - no other similar issues since, this was vasovagal, occurred while straining on the toilet -Unclear etiology for orthostasis. Donepezil could cause orthostasis. AM Cortisol level checked one month ago when had hypoglycemia and was 18 -Discontinued donepezil -Discontinued Imdur/other nitros and beta-ross therapy- given his aortic stenosis will try and prevent hypotension -Continue MEGAN hose daily when out of bed -Continue Florinef to 0.2 mg daily -- Will need to monitor this use due to risk of edema -Started midodrine to 5 mg p.o. 3 times daily and watch closely for development of cardiac symptoms-no angina thus far with this -Follow orthostatics once daily at the longterm and consider titrating up on midodrine if becomes symptomatic with his orthostasis (2) NSTEMI (non-ST elevated myocardial infarction): - Trop elevated ~3-4 during this admission - Limited TTE showed mildly reduced systolic function, concern for worsened inferior wall motion abnormality. - S/P Cath on 07/26 with ongoing CAD without ability to pass balloon and therefore plan to medical optimize symptoms - Heparin infusion has since been D/Cd No further angina at this time -Continue ASA 81 mg daily and Plavix 75 mg daily; high intensity statin with atorvastatin 40 mg daily; antianginal therapy with Ranexa increased recently to 1 g BID; discontinued Imdur and then discontinued nitro patch as was likely contributing to orthostasis and hypotension appreciate cardiology input- will need follow-up in the outpatient office in 2 weeks after discharge (3) CAD (coronary artery disease): - S/P CABG x 4 and subsequent stents; also had recent NSTEMI this spring; Cath on 06/09 with severe multivessel CAD and again this admission with severe disease not amenable to stenting - Continue aspirin, plavix, statin and ranexa. - Beta blockade & nitro patch have since been discontinued due to hypotension. (4) Rectal bleeding: - Denies H/O GI bleeding in past; was likely related to internal hemorrhoids; did attempt to self-disimpact and resulted in some BRBPR - Hemoglobin has been stable at 10.5, FOBT was negative. -Continue Senokot S BID scheduled; MOM PRN; Anusol PRN; Dulcolax PRN (5) Cervical spine disease: - CT C-spine showed large posterior disc osteophyte complex at C6-C7 likely contributing to compromise of central canal. - MRI showed no acute process within spinal cord. - Ortho spine consulted -- changes are not likely leading to falls at home. (6) Recurrent falls: - Could be secondary to hypotensive/orthostatic episodes. - CT head was negative. - Planning on SNF for rehab when orthostasis resolved- will monitor BP (7) Metabolic encephalopathy: - May be related to underlying infection (?PNA vs. sinusitis) upon admission vs. hospital delirium with sundowning vs. dementia on admission--now completely resolved (8) HLD (hyperlipidemia): - Continue statin as prescribed. (9) DM II (diabetes mellitus, type II), controlled: - Has been recently admitted for severe hypoglycemia following accidental insulin overdose at home. - Most recent A1C was 6.1 in June 2018. - Does not require treatment, no indication for gluc checks. (10) Aortic stenosis: - Moderate on recent cardiac cath. - Avoid hypotension (see above) (11) AAA (abdominal aortic aneurysm): - Currently stable, was 4.4 x 4.1 cm on most recent imaging. - Follow as outpatient. (12) KAY (obstructive sleep apnea): - Does not use CPAP at home. (13) CKD (chronic kidney disease), stage III: - STABLE - Renally dose all meds (14) Systolic and diastolic CHF, chronic: - Most recent TTE showed EF 45% with wall motion abnormalities; repeat TTE is unchanged. He is euvolemic - Monitor I/O's and daily weights. - Cannot tolerate beta blockers or TONY inhibitors due to hypotension -Is not requiring any diuretics (15) Anemia: -Hemoglobin stable at 10.5 and is normocytic - Recent iron studies were c/w anemia of chronic disease. (16) Dementia: Mild cognitive impairment, has been having issues with compliance with prescribed medications -Discontinued Aricept 10 mg daily in case contributing to orthostasis (17) Vitamin D deficiency: -Continue vitamin D supplementation at home (18) GERD (gastroesophageal reflux disease): - Continue home PPI and Famotidine as prescribed. (19) Prolonged QT interval: - Avoid QT prolonging agents if possible; did complete course of Levaquin PO. - Monitor QTc - QT improved on repeat EKG (20) DVT prophylaxis: - SCDs, TEDs, aspirin, Plavix He should continue to use MEGAN hose every day during the day to prevent orthostatic hypotension Dispo: Due to significant deconditioning and multiple hospital stays and readmissions, he was recommended to go to care home facility. He is stable for discharge to [facility] today. Please give strong consideration to him entering into assisted living as a transition after care home and rehabilitative needs are met due to multiple hospital readmissions, medication compliance issues, and complex medical comorbidities. He is at high risk for readmission to the hospital. Total Time Total Time Spent Total Time Spent (In Minutes): Greater than 30 minutes Total Time Includes: Examination of the Patient, Discharge Planning and Medication Reconciliation Discharge Plan Discharge Items Patient Disposition: Transfer Custodial Fac Reason For Visit: FALLS,PNA Discharge Diagnosis: Orthostatic hypotension, NSTEMI, falls Condition: Fair Discharge Goals: Diagnostic testing, Improve disease control, Learn about illness, Prevent disease and Therapeutic intervention Activity: As commented below Lifting: Gradually increase as tolerated Bathing: No limitations Exercise/Sports: Gradually increase as tolerated Non-emergency contact: 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 Christine of cardiology within 2 weeks of discharge) Diet: Heart Healthy Addtl Provider Instructions: Mr. Alegria was admitted with falls and found to be hypotensive. He was also treated for pneumonia and sinusitis initially. He continued to have angina and was taken for cardiac catheterization which showed severe disease but was not amenable to intervention. He continued to have orthostatic hypotension and this was treated with the addition of fludrocortisone and Midrin. His blood pressures are still decreasing with standing, however he is now asymptomatic. He is severely deconditioned from numerous hospital stays, 2 of which have been very lengthy in the last couple of months. He needs aggressive physical and occupational therapy to return him to his baseline status. He should be considered for long-term placement in assisted living after his skilled needs are met due to mild dementia and ongoing issues with compliance with recommended medical therapy. Please have him follow-up with laundry helper within 2 weeks of discharge. Prescriptions: New midodrine 5 mg tablet 5 mg PO TID Qty: 90 RF: 0 ranolazine 1,000 mg tablet extended release 12 hr 1,000 mg PO BID Qty: 60 RF: 0 diclofenac sodium [Voltaren] 1 % Gel 4 gm EXT QID Qty: 100 RF: 0 sennosides-docusate sodium [Senokot-S] 8.6-50 mg Tablet 1 tab PO BID Qty: 60 RF: 0 hydrocortisone [Proctosol HC] 2.5 % Cream With Perineal Applicator 1 applic EXT Q8H PRN (Reason: hemorrhoids) Qty: 15 RF: 0 fludrocortisone 0.1 mg Tablet 0.2 mg PO QAM Qty: 60 RF: 0 Continued atorvastatin 40 mg Tablet 40 mg PO HS RF: 0 nitroglycerin [Nitrostat] 0.4 mg Tablet, Sublingual 0.4 mg Sublingual DIRECTED PRN (Reason: Chest Pain) RF: 0 cyanocobalamin (vitamin B-12) [Vitamin B-12] 1,000 mcg Tablet 1,000 mcg PO DAILY RF: 0 clopidogrel 75 mg Tablet 75 mg PO DAILY RF: 0 famotidine 20 mg Tablet 20 mg PO BID RF: 0 pantoprazole 40 mg Tablet,Delayed Release (Dr/Ec) 40 mg PO DAILY RF: 0 aspirin 81 mg Tablet,Chewable 81 mg PO DAILY RF: 0 cholecalciferol (vitamin D3) [Vitamin D3] 1,000 unit Capsule 1,000 unit PO DAILY RF: 0 Discontinued donepezil [Aricept] 10 mg Tablet 10 mg PO DAILY RF: 0 ranolazine [Ranexa] 1,000 mg tablet extended release 12 hr 500 mg PO Q12 RF: 0 nitroglycerin [Nitro-Dur] 0.6 mg/hr Patch 24 Hour 1 patch TRANSDERMAL ONAMOFFPM RF: 0 metoprolol succinate 25 mg tablet extended release 24 hr 12.5 mg PO DAILY Qty: 30 RF: 2 Stand-Alone Forms: [facility] Discharge Orders: Discharge Order (Routine); Ordered 08/05/18 Ordered By: Fariba Fong Skilled Items Patient informed of condition?: Yes DNR: No Discharge Level of Care: Skilled Communicable Disease: No Discharge Prognosis: Stable Admission Data Admit Date/Time: 07/20/18 16:22 Attending Provider: Fariba Fong Admit Provider: Fariba Fong Primary Care Provider: Tiburcio Herrera III Other Providers: Home,Nursing Agency ; Josiah Spears ; Tho Alejandre ; Fermín Alexandre Service: Telemetry Other Pending Studies at Discharge: No
--- NOTE | 2018-08-09 06:22 | Coding Query ---
CODING QUERY To promote full compliance with coding requirements relating to patient care, provider participation is requested in all cases of home health occupational therapist uncertainty. Please assist us with the question(s) below: Coding Question(s): Patient admitted with orthostatic hypotension,unknown etiology. s/p CABG, stents. Prior history [place]. Troponin noted to be elevated - . Progress note Cardiology stated elevated Troponin could be due to coronary arteries . Please check below the diagnosis that was treated during the course of this Inpatient stay. Thanks for our help! SHAUNA Cassidy [facility] Physician Response: NSTEMI ___x___ NSTEMI Type 2 Other/ Please document: Cannot Clinically Correlate if NSTEMI/NSTEMI Type 2 etc was treated during this IP Stay Principal Diagnosis: "that condition established after study, to be chiefly responsible for occasioning the admission of the patient to the hospital for care." Co-Existing Principal Diagnosis: "when two or more diagnoses equally meet the criteria for principal diagnosis as determined by the circumstances of admission, diagnostic work up, and/or therapy provided, and the Alphabetic Index, Tabular List, or another coding guideline does not provide sequencing direction, any one of the diagnoses may be sequenced first." "When the physician has documented what appears to be a current diagnosis in the body of the record, but has not included the diagnosis in the final diagnostic statement, the physician should be asked whether the diagnosis should be added." (Source Coding Clinic 2 QTR90. p3-4) JOLYNN
== END 2018-08-05 17:50 | DRG 280 ==
LOC: ED 12:32 → SUATTDRO 16:22 → 2W 16:22 → 2S 07-26 18:32 → 2E 07-29 04:47 → 4W 07-31 10:05

== ENCOUNTER 2018-09-21 21:45 | Inpatient (IN) ==
[2018-09-21] MEDS ORDERED: PROPOFOL IV EMULSION 10 MG/ML 100 ML VIAL IV ONE (21:57)
[2018-09-21] MEDS ORDERED: DiphenhydrAMINE HCL 50 MG/ML VIAL IV STA (21:57)
[2018-09-21] MEDS ORDERED: FAMOTIDINE 20MG IV PUSH 20 MG/5 ML SYR IV STA (21:57)
[2018-09-21] MEDS ORDERED: methylPREDNISolone 125 MG/2 ML VIAL IV STA (21:57)
[2018-09-21 22:03] LABS: Basophils # (auto) 0.02 K/uL (0-0.2); Basophils % (auto) 0.2 %; Eosinophils # (auto) 0.24 K/uL (0-0.5); Eosinophils % (auto) 2.7 %; Hematocrit (blood only) 31.1 % (42-52); Hemoglobin 10.1 g/dL (14.0-18.0); Immature Granulocytes # (auto) 0.05 K/uL (0.00-0.02); Immature Granulocytes % (auto) 0.6 %; Lymphocytes # (auto) 4.44 K/uL (1.2-3.4); Lymphocytes % (auto) 49.8 %; Mean Corpuscular Hgb Conc 32.5 g/dL (32-36); Mean Platelet Volume 9.8 fL (7.4-10.4); Monocytes # (auto) 0.63 K/uL (0.11-0.59); Monocytes % (auto) 7.1 %; Neutrophils # (auto) 3.54 K/uL (1.4-6.5); Neutrophils % (auto) 39.6 %; Platelet Count 251 K/uL (130-400); RDW Coefficient of Variation 16.4 % (11.5-14.5); Red Blood Count 3.38 M/uL (4.7-6.1); White Blood Count 8.92 K/uL (4.8-10.8)
[2018-09-21 22:07] LABS: iSTAT Creatinine 1.8 mg/dl (0.6-1.3); iSTAT Hemoglobin 10.2 g/dl (14.0-18.0); iSTAT Ionized Calcium 1.12 mmol/l (1.12-1.32); iSTAT Potassium 3.4 mEq/L (3.3-5.0)
[2018-09-21 22:14] LABS: INR 1.2 (0.9-1.1); Partial Thromboplastin Ratio 0.9; Partial Thromboplastin Time 25.1 Seconds (21.0-31.0); Prothrombin Time 12.4 Seconds (9.0-12.0)
[2018-09-21] MEDS ORDERED: PROPOFOL 1,000 MG/100 ML VIAL IV PRN (22:15)
[2018-09-21 22:17] LABS: BUN Creatinine Ratio 11.4 (10-20); Calcium 8.6 mg/dl (8.5-10.1); Creatinine Clr Calc Pharmacy 31.9 ml/min; Est GFR (African American) 37.7; Est GFR (Non-African American) 32.5; Magnesium 2.2 mg/dl (1.8-2.4); Potassium 3.4 mmol/L (3.5-5.1)
--- NOTE | 2018-09-21 22:17 | Emergency Department Note ---
Entered by Nallely Cohen acting as a scribe for Maksim Hernandez DO History of Present Illness General Chief complaint: Cardiac Arrest/CPR Stated complaint: POST CARDIAC ARREST Source: patient Limitations: other (HPI limited secondary to intubation. 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 Per EMS, the patient got up to go to the bathroom, and went into cardiac arrest. EMS notes that the patient son performed CPR for 15 minutes prior to their arrival. Per EMS, the patient received two rounds of epinephrine with spontaneous return of circulation. EMS notes that he had no complaints earlier today. Per EMS, the patient was recently started on a new diuretic. EMS reports that the patient was asystolic upon arrival. 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 HPI limited secondary to intubation. Home Medications Home Medications Medication Instructions Recorded Confirmed Type atorvastatin 40 mg PO HS 02/01/18 09/21/18 History nitroglycerin [Nitrostat] 0.4 mg SUBLINGUAL DIRECTED PRN 02/01/18 09/21/18 History aspirin 81 mg PO DAILY 06/09/18 09/21/18 History cholecalciferol (vitamin D3) 1,000 unit PO DAILY 06/09/18 09/21/18 History [Vitamin D3] clopidogrel 75 mg PO DAILY 06/09/18 09/21/18 History cyanocobalamin (vitamin B-12) 1,000 mcg PO DAILY 06/09/18 09/21/18 History [Vitamin B-12] famotidine 20 mg PO BID 06/09/18 09/21/18 History pantoprazole 40 mg PO DAILY 06/09/18 09/21/18 History hydrocortisone [Proctosol HC] 1 applic EXT Q8H PRN #15 g 08/05/18 09/21/18 Rx ranolazine 1,000 mg PO BID #60 tab 08/05/18 09/21/18 Rx sennosides-docusate sodium 1 tab PO BID #60 tab 08/05/18 09/21/18 Rx [Senokot-S] lancets 33 gauge #100 ea 08/20/18 09/21/18 Rx furosemide 40 mg PO DAILY 09/21/18 09/21/18 History midodrine 10 mg PO QAM 09/21/18 09/22/18 History midodrine 5 mg PO BID 09/22/18 09/22/18 History Allergies Allergy/AdvReac Type Severity Reaction Status Date / Time iodine Allergy Severe Unknown Verified 08/26/18 14:01 Penicillins Allergy Severe AMOXIL = Verified 08/26/18 14:01 ANAPHYLACTIC RXN clavulanic acid Allergy Unknown Unknown Verified 08/26/18 14:01 morphine AdvReac Mild VOMITING Verified 08/26/18 14:01 amoxicillin AdvReac Verified 08/26/18 14:01 Past Med/Surg History Medical History Chronic combined systolic and diastolic heart failure Ischemic cardiomyopathy Surgical History H/O heart artery stent (Resolved) History of quadruple bypass (Resolved) Family History Other Family history non-contributory Social History Preferred Language: Arabic Communication Ability: Unable Beliefs That Will Affect Care: None marital status: Current Living Situation: Spouse Feels Safe at Home: Yes Smoking Status: Never smoker Second Hand Exposure: No Hx Alcohol Use: No Hx Substance Use: No Review of Systems See HPI for pertinent positives & negatives. Other (ROS limited secondary to intubation. ) Physical Exam Vital Signs Vital Signs - 24 hr 09/21/18 21:46 09/21/18 21:53 09/21/18 21:55 Temperature 36.1 C L 36.1 C L Temperature Source Rectal Sepsis Recent Fever Within 48 Hours No Sepsis Action Taken by Nursing No Action Required End-Tidal CO2 43 29 Pulse Rate 86 83 Pulse Rate from SpO2 Sensor Respiratory Rate 10 L 22 Respiratory Effort / Characteristics Mechanically Ventilated Blood Pressure 108/76 Blood Pressure Mean 86 Blood Pressure Position Lying Pulse Oximetry 100 100 Oxygen Delivery Method Mechanical Vent Fraction of Inspired Oxygen 100 09/21/18 22:00 09/21/18 22:35 09/21/18 22:37 Temperature Temperature Source Sepsis Recent Fever Within 48 Hours Sepsis Action Taken by Nursing End-Tidal CO2 27 29 26 Pulse Rate 82 65 69 Pulse Rate from SpO2 Sensor 82 70 Respiratory Rate 12 Respiratory Effort / Characteristics Blood Pressure 114/68 69/57 L Blood Pressure Mean 83 61 Blood Pressure Position Pulse Oximetry 100 98 Oxygen Delivery Method Mechanical Vent Mechanical Vent Mechanical Vent Fraction of Inspired Oxygen 100 100 09/21/18 22:38 09/21/18 22:40 09/21/18 22:43 Temperature 35.6 C L Temperature Source Rectal Sepsis Recent Fever Within 48 Hours Sepsis Action Taken by Nursing End-Tidal CO2 27 26 23 Pulse Rate 69 69 66 Pulse Rate from SpO2 Sensor 65 64 Respiratory Rate Respiratory Effort / Characteristics Blood Pressure 94/48 L 86/50 L 79/50 L Blood Pressure Mean 63 62 59 Blood Pressure Position Pulse Oximetry 99 100 Oxygen Delivery Method Mechanical Vent Mechanical Vent Mechanical Vent Fraction of Inspired Oxygen 100 100 100 09/21/18 22:45 09/21/18 22:50 09/21/18 22:55 Temperature Temperature Source Sepsis Recent Fever Within 48 Hours Sepsis Action Taken by Nursing End-Tidal CO2 23 21 21 Pulse Rate 64 58 L 58 L Pulse Rate from SpO2 Sensor 63 59 L 61 Respiratory Rate Respiratory Effort / Characteristics Blood Pressure 72/45 L 77/48 L 84/50 L Blood Pressure Mean 54 57 61 Blood Pressure Position Pulse Oximetry 100 98 94 Oxygen Delivery Method Mechanical Vent Mechanical Vent Mechanical Vent Fraction of Inspired Oxygen 100 100 100 09/21/18 23:00 09/21/18 23:03 09/21/18 23:05 Temperature 35.2 C L Temperature Source Rectal Sepsis Recent Fever Within 48 Hours Sepsis Action Taken by Nursing End-Tidal CO2 20 19 Pulse Rate 55 L 54 L Pulse Rate from SpO2 Sensor 55 L 56 L Respiratory Rate Respiratory Effort / Characteristics Blood Pressure 72/46 L Blood Pressure Mean 54 Blood Pressure Position Pulse Oximetry 94 95 Oxygen Delivery Method Mechanical Vent Mechanical Vent Fraction of Inspired Oxygen 100 100 09/21/18 23:10 09/21/18 23:15 09/21/18 23:20 Temperature Temperature Source Sepsis Recent Fever Within 48 Hours Sepsis Action Taken by Nursing End-Tidal CO2 19 18 19 Pulse Rate 53 L 52 L 55 L Pulse Rate from SpO2 Sensor 53 L 53 L 55 L Respiratory Rate Respiratory Effort / Characteristics Blood Pressure 77/48 L 87/57 L Blood Pressure Mean 57 67 Blood Pressure Position Pulse Oximetry 95 93 91 Oxygen Delivery Method Mechanical Vent Mechanical Vent Mechanical Vent Fraction of Inspired Oxygen 100 100 100 09/21/18 23:22 09/21/18 23:25 09/21/18 23:30 Temperature 35.0 C L 34.8 C L Temperature Source Rectal Rectal Sepsis Recent Fever Within 48 Hours Sepsis Action Taken by Nursing End-Tidal CO2 20 20 Pulse Rate 55 L 56 L Pulse Rate from SpO2 Sensor 55 L 55 L Respiratory Rate Respiratory Effort / Characteristics Blood Pressure 87/55 L 89/54 L Blood Pressure Mean 65 65 Blood Pressure Position Pulse Oximetry 90 91 Oxygen Delivery Method Mechanical Vent Mechanical Vent Fraction of Inspired Oxygen 100 100 09/21/18 23:35 Temperature Temperature Source Sepsis Recent Fever Within 48 Hours Sepsis Action Taken by Nursing End-Tidal CO2 23 Pulse Rate 54 L Pulse Rate from SpO2 Sensor 55 L Respiratory Rate Respiratory Effort / Characteristics Blood Pressure Blood Pressure Mean Blood Pressure Position Pulse Oximetry 94 Oxygen Delivery Method Mechanical Vent Fraction of Inspired Oxygen 100 GENERAL: The patient is intubated. The patient opens eyes to loud verbal commands. He is unable to speak at this time and does not follow commands otherwise. EYES: The conjunctivae are clear. Pupils are constricted and minimally reactive to light bilaterally. EARS, NOSE, MOUTH AND THROAT: Endotracheal tube is noted in the oropharynx. NECK: The neck is nontender and supple. RESPIRATORY: Diminished breath sounds are noted throughout. Breath sounds are noted with bagging. There are rales at both bases. CARDIOVASCULAR: Regular rate and rhythm was noted to auscultation. Heart sounds were distant. GASTROINTESTINAL: The abdomen is moderately distended. There is no guarding or rigidity noted. MUSCULOSKELETAL/EXTREMITIES: There is no evidence of gross deformity. Full range of motion is noted in the hips and shoulders. SKIN: Pedal edema was noted bilaterally. There is an intraosseous line in the left montoya. There is an area of erythema and excoriation over the anterior chest wall from the Evaristo device. NEUROLOGIC: GCS: Course 2145: The patient was evaluated in room B01. A complete history and physical exam was performed. I reviewed his pre-hospital EKG. 2204: I spoke with the patient's family. 2206: I spoke with Dr. Dawn, [facility] hospitalist, about the patient's case. 2233: I reassessed the patient. 2301: I spoke with Dr. Goyal, a resident with Dr. Dawn, about the patients case. 2304: I spoke with Dr. Christine, [facility] cardiology, about the patients case. 2340: I spoke with Dr. Dela Cruz, [facility] Physician Primary Care Sports Medicine, about the patients case. Consultations Consultation #1: I spoke with Dr. Dawn, [facility] hospitalist, about the patient's case. Time: 22:07 Consultation #2: I spoke with Dr. Goyal, a resident with Dr. Dawn, about the patients case. Time: 23:02 Consultation #3: I spoke with Dr. Christine, [facility] cardiology, about the patients case. Time: 23:05 Additional Consultation(s): 2340: I spoke with Dr. Dela Cruz, [facility] Physician Primary Care Sports Medicine, about the patients case. Administered Medications Fentanyl Citrate (Fentanyl Drip) 1,250 mcg in 250 mls @ 5 mls/hr IV .Q24H PRN; Protocol PRN Reason: TITRATE Stop: 10/06/18 00:45 Last Titration: 09/22/18 07:15 Dose: 25 mcg/hr, 5 mls/hr Documented by: [id number] Cosigned by: [id number] Admin: 09/22/18 01:16 Dose: 25 mcg/hr, 5 mls/hr Documented by: [id number] Cosigned by: [id number] Midazolam HCl (Versed) 125 mg in 250 mls @ 4 mls/hr IV .Q24H PRN; Protocol PRN Reason: TITRATE Stop: 10/22/18 00:45 Last Titration: 09/22/18 07:15 Dose: 2 mg/hr, 4 mls/hr Documented by: [id number] Cosigned by: [id number] Titration: 09/22/18 04:00 Dose: 2 mg/hr, 4 mls/hr Documented by: [id number] Admin: 09/22/18 01:15 Dose: 1 mg/hr, 2 mls/hr Documented by: [id number] Cosigned by: [id number] Heparin Sodium/Dextrose (Heparin Sodium/Dextrose) 25,000 units in 500 mls @ 0 mls/hr IV .Q0M DAYSI; Protocol Stop: 10/22/18 01:14 Last Titration: 09/22/18 09:30 Dose: 0 units/hr, 0 mls/hr Documented by: [id number] Cosigned by: [id number] Titration: 09/22/18 07:15 Dose: 1,450 units/hr, 29 mls/hr Documented by: [id number] Cosigned by: [id number] Admin: 09/22/18 01:24 Dose: 1,450 units/hr, 29 mls/hr Documented by: [id number] Cosigned by: [id number] Parenteral Electrolytes (Normosol-R) 1,000 mls @ 50 mls/hr IV .Q20H DAYSI Stop: 10/22/18 09:29 Last Admin: 09/22/18 09:50 Dose: 50 mls/hr Documented by: [id number] Ioversol (Optiray 320 125ml) 125 ml IV ONCE PRN PRN Reason: Interaction Checking Stop: 09/25/18 22:31 Last Admin: 09/21/18 22:32 Dose: 119 ml Documented by: [id number] Meperidine HCl (Demerol) 25 mg IV Q2H PRN PRN Reason: .SHIVERING Stop: 10/06/18 00:45 Last Admin: 09/22/18 04:22 Dose: 25 mg Documented by: [id number] Ticagrelor (Brilinta) 90 mg PO BID DAYSI Stop: 10/22/18 09:29 Last Admin: 09/22/18 09:50 Dose: 90 mg Documented by: [id number] Discontinued Medications Diphenhydramine HCl (Benadryl) 25 mg IV NOW STA Stop: 09/21/18 21:58 Last Admin: 09/21/18 22:05 Dose: 25 mg Documented by: [id number] Fentanyl Citrate (Fentanyl Citrate) 100 mcg IV NOW ONE Stop: 09/21/18 22:36 Last Admin: 09/21/18 22:39 Dose: 100 mcg Documented by: [id number] Fentanyl Citrate (Fentanyl Citrate) Confirm Administered Dose 100 mcg .ROUTE .STK-MED ONE Stop: 09/21/18 22:37 Last Admin: 09/21/18 22:40 Dose: Not Given Documented by: [id number] Fentanyl Citrate (Fentanyl Citrate) 100 mcg IV Q2H PRN PRN Reason: Severe Pain (7,8,9,10) Stop: 10/05/18 22:57 Last Admin: 09/21/18 23:49 Dose: 100 mcg Documented by: [id number] Heparin Sodium/Dextrose () 1 ea IV Q15M [facility]; Protocol Stop: 10/22/18 00:45 Last Admin: 09/22/18 03:41 Dose: Not Given Documented by: [id number] Admin: 09/22/18 03:41 Dose: Not Given Documented by: [id number] Admin: 09/22/18 03:41 Dose: Not Given Documented by: [id number] Admin: 09/22/18 03:41 Dose: Not Given Documented by: [id number] Admin: 09/22/18 01:15 Dose: 1 ea Documented by: [id number] Famotidine (Pepcid 20mg Iv Push) 20 mg in 5 mls @ 2.5 mls/min IV NOW STA Stop: 09/21/18 21:58 Last Admin: 09/21/18 22:05 Dose: 2.5 mls/min Documented by: [id number] Propofol (Diprivan) 1,000 mg in 100 mls @ 0 mls/hr IV .Q0M PRN; Protocol PRN Reason: TITRATE Stop: 09/24/18 22:14 Last Titration: 09/21/18 23:56 Dose: 0 mcg/kg/min, 0 mls/hr Documented by: [id number] Titration: 09/21/18 22:57 Dose: 0 mcg/kg/min, 0 mls/hr Documented by: [id number] Titration: 09/21/18 22:47 Dose: 5 mcg/kg/min, 2.5 mls/hr Documented by: [id number] Titration: 09/21/18 22:41 Dose: 10 mcg/kg/min, 5.1 mls/hr Documented by: [id number] Admin: 09/21/18 22:05 Dose: 5 mcg/kg/min, 2.5 mls/hr Documented by: [id number] Cosigned by: [id number] Sodium Chloride (Nss 1000ml) 1,000 mls @ 999 mls/hr IV .Q1H1M ONE Stop: 09/21/18 23:31 Last Infusion: 09/21/18 23:20 Dose: 0 mls/hr Documented by: [id number] Admin: 09/21/18 22:42 Dose: 999 mls/hr Documented by: [id number] Norepinephrine Bitartrate 8 mg (/ Dextrose) 508 mls @ 17.09 mls/hr IV .Q24H DAYSI; Protocol Stop: 10/21/18 23:14 Last Titration: 09/22/18 14:00 Dose: 0.02 mcg/kg/min, 6.8 mls/hr Documented by: [id number] Titration: 09/22/18 09:00 Dose: 0.03 mcg/kg/min, 10.3 mls/hr Documented by: [id number] Titration: 09/22/18 07:15 Dose: 0.05 mcg/kg/min, 17.1 mls/hr Documented by: [id number] Cosigned by: [id number] Admin: 09/21/18 23:27 Dose: 0.05 mcg/kg/min, 17.1 mls/hr Documented by: [id number] Cosigned by: [id number] Ceftriaxone Sodium 2,000 mg/ (Dextrose) 70 mls @ 100 mls/hr IV NOW STA Stop: 09/21/18 23:55 Last Infusion: 09/22/18 00:14 Dose: 0 mls/hr Documented by: [id number] Admin: 09/21/18 23:27 Dose: 100 mls/hr Documented by: [id number] Ranitidine HCl 50 mg/ Dextrose 102 mls @ 200 mls/hr IV Q8H DAYSI Stop: 10/22/18 03:59 Last Infusion: 09/22/18 04:53 Dose: 0 mls/hr Documented by: [id number] Admin: 09/22/18 04:22 Dose: 200 mls/hr Documented by: [id number] Potassium Chloride (K Frank / Wtr) 10 meq in 100 mls @ 100 mls/hr IV Q1H DAYSI Stop: 09/22/18 12:59 Last Infusion: 09/22/18 13:59 Dose: 0 mls/hr Documented by: [id number] Admin: 09/22/18 12:59 Dose: 100 mls/hr Documented by: [id number] Infusion: 09/22/18 12:59 Dose: 100 mls/hr Documented by: [id number] Admin: 09/22/18 12:03 Dose: 100 mls/hr Documented by: [id number] Infusion: 09/22/18 11:47 Dose: 100 mls/hr Documented by: [id number] Admin: 09/22/18 10:47 Dose: 100 mls/hr Documented by: [id number] Infusion: 09/22/18 10:47 Dose: 100 mls/hr Documented by: [id number] Admin: 09/22/18 09:50 Dose: 100 mls/hr Documented by: [id number] Methylprednisolone (Solumedrol) 125 mg IV NOW STA Stop: 09/21/18 21:58 Last Admin: 09/21/18 22:05 Dose: 125 mg Documented by: [id number] Midazolam HCl (Versed) 2 mg IV NOW STA Stop: 09/21/18 22:36 Last Admin: 09/21/18 22:42 Dose: 1 mg Documented by: [id number] Midazolam HCl (Versed) Confirm Administered Dose 2 mg .ROUTE .STK-MED ONE Stop: 09/21/18 22:38 Last Admin: 09/21/18 22:42 Dose: Not Given Documented by: [id number] Midazolam HCl (Versed) 2 mg IV Q2H PRN PRN Reason: agitation/anxiety Stop: 10/21/18 22:57 Last Admin: 09/21/18 23:56 Dose: 1 mg Documented by: [id number] Admin: 09/21/18 23:49 Dose: 1 mg Documented by: [id number] Midazolam HCl (Versed) Confirm Administered Dose 2 mg .ROUTE .STK-MED ONE Stop: 09/22/18 00:49 Last Admin: 09/22/18 00:54 Dose: 2 mg Documented by: [id number] Miscellaneous (Patient's Height And/Or Weight Needed) 1 ea N/A Q30M [facility] Stop: 10/21/18 22:14 Last Admin: 09/22/18 03:41 Dose: Not Given Documented by: [id number] Admin: 09/22/18 03:40 Dose: Not Given Documented by: [id number] Admin: 09/22/18 03:40 Dose: Not Given Documented by: [id number] Admin: 09/22/18 03:40 Dose: Not Given Documented by: [id number] Admin: 09/22/18 01:38 Dose: 1 ea Documented by: [id number] Admin: 09/21/18 23:08 Dose: 1 ea Documented by: [id number] Propofol (Diprivan) Confirm Administered Dose 1,000 mg IV .STK-MED ONE Stop: 09/21/18 21:58 Last Admin: 09/21/18 22:18 Dose: Not Given Documented by: [id number] Medical Decision Making Differential Diagnosis Etiologies such as shingles, musculoskeletal pain, pericarditis, myocarditis, cardiac ischemia, pericardial tamponade, pneumonia, pneumothorax, pleural effusion, hemothorax, pleurisy, aortic pathology, pulmonary embolism, intra- abdominal process, as well as others were considered. Medical Records Attestation: I reviewed the patient's medical records. Home Medications Current Medication List: was personally reviewed by me Laboratory Data Attestation: I reviewed the patient's lab results. Result diagrams: 09/22/18 14:35 09/22/18 10:51 Lab Results 09/21/18 09/21/18 09/21/18 Range/Units 21:51 21:58 21:58 WBC 8.92 (4.8-10.8) K/uL RBC 3.38 L (4.7-6.1) M/uL Hgb 10.1 L (14.0-18.0) g/dL POC Hgb 10.2 L (14.0-18.0) g/dl Hct 31.1 L (42-52) % POC Hct 30 L (42-52) % MCV 92.0 (80-100) fL MCH 29.9 (25-34) pg MCHC 32.5 (32-36) g/dL RDW Std Deviation 55.0 H (36.4-46.3) fL RDW Coeff of Sandra 16.4 H (11.5-14.5) % Plt Count 251 (130-400) K/uL MPV 9.8 (7.4-10.4) fL Immature Gran % (Auto) 0.6 % Neut % (Auto) 39.6 % Lymph % (Auto) 49.8 % [place] % (Auto) 7.1 % Eos % (Auto) 2.7 % Baso % (Auto) 0.2 % Immature Gran # (Auto) 0.05 H (0.00-0.02) K/uL Neut # (Auto) 3.54 (1.4-6.5) K/uL Lymph # (Auto) 4.44 H (1.2-3.4) K/uL [place] # (Auto) 0.63 H (0.11-0.59) K/uL Eos # (Auto) 0.24 (0-0.5) K/uL Baso # (Auto) 0.02 (0-0.2) K/uL PT (9.0-12.0) Seconds INR (0.9-1.1) APTT (21.0-31.0) Seconds PTT Ratio VBG pH (7.36-7.41) VBG pCO2 (38-50) mmHg VBG pO2 mmHg VBG HCO3 mmol/L VBG O2 Saturation % VBG Base Excess mEq/L Barometric Pressure mm/Hg POC Sodium 140 (135-144) mEq/L Sodium (136-145) mmol/L POC Potassium 3.4 (3.3-5.0) mEq/L Potassium (3.5-5.1) mmol/L POC Chloride 99 L (101-112) mEq/L Chloride (98-107) mmol/L Carbon Dioxide (21-32) mmol/L POC Total CO2 25 (24-31) mEq/l Anion Gap (3-11) POC Anion Gap 20.0 (16-25) mmol/L POC BUN 22 H (7-18) mg/dl BUN (7-18) mg/dl Creatinine (0.6-1.4) mg/dl POC Creatinine 1.8 H (0.6-1.3) mg/dl Est Cr Clr Drug Dosing ml/min Est GFR ( Amer) Est GFR (Non-Af Amer) BUN/Creatinine Ratio (10-20) Glucose (70-99) mg/dl POC Glucose (other) 185 H (70-99) mg/dl Lactate (0.4-2.0) mmol/L Calcium (8.5-10.1) mg/dl POC Ioniz Calcium Marcie 1.12 (1.12-1.32) mmol/l Magnesium (1.8-2.4) mg/dl Total Bilirubin (0.2-1) mg/dl AST (15-37) U/L ALT (12-78) U/L Alkaline Phosphatase (45-117) U/L Troponin I (0-0.045) ng/ml Total Protein (6.4-8.2) gm/dl Albumin (3.4-5.0) gm/dl Globulin (2.5-4.0) gm/dl Albumin/Globulin Ratio (0.9-2) Procalcitonin < 0.05 (0-0.5) ng/ml Urine Color Urine Appearance (Clear) Urine pH (4.5-7.5) Ur Specific [place] (1.000-1.030) Urine Protein (Negative) Urine Glucose (UA) (Negative) Urine Ketones (Negative) Urine Blood (Negative) Urine Nitrite (Negative) Urine Bilirubin (Negative) Urine Urobilinogen (Negative) Ur Leukocyte Esterase (Negative) Urine RBC Urine WBC Ur Epithelial Cells Urine Bacteria 09/21/18 09/21/18 09/21/18 Range/Units 21:58 21:58 21:58 WBC (4.8-10.8) K/uL RBC (4.7-6.1) M/uL Hgb (14.0-18.0) g/dL POC Hgb (14.0-18.0) g/dl Hct (42-52) % POC Hct (42-52) % MCV (80-100) fL MCH (25-34) pg MCHC (32-36) g/dL RDW Std Deviation (36.4-46.3) fL RDW Coeff of Sandra (11.5-14.5) % Plt Count (130-400) K/uL MPV (7.4-10.4) fL Immature Gran % (Auto) % Neut % (Auto) % Lymph % (Auto) % [place] % (Auto) % Eos % (Auto) % Baso % (Auto) % Immature Gran # (Auto) (0.00-0.02) K/uL Neut # (Auto) (1.4-6.5) K/uL Lymph # (Auto) (1.2-3.4) K/uL [place] # (Auto) (0.11-0.59) K/uL Eos # (Auto) (0-0.5) K/uL Baso # (Auto) (0-0.2) K/uL PT 12.4 H (9.0-12.0) Seconds INR 1.2 H (0.9-1.1) APTT 25.1 (21.0-31.0) Seconds PTT Ratio 0.9 VBG pH (7.36-7.41) VBG pCO2 (38-50) mmHg VBG pO2 mmHg VBG HCO3 mmol/L VBG O2 Saturation % VBG Base Excess mEq/L Barometric Pressure mm/Hg POC Sodium (135-144) mEq/L Sodium 140 (136-145) mmol/L POC Potassium (3.3-5.0) mEq/L Potassium 3.4 L (3.5-5.1) mmol/L POC Chloride (101-112) mEq/L Chloride 103 (98-107) mmol/L Carbon Dioxide 27 (21-32) mmol/L POC Total CO2 (24-31) mEq/l Anion Gap 10.0 (3-11) POC Anion Gap (16-25) mmol/L POC BUN (7-18) mg/dl BUN 21 H (7-18) mg/dl Creatinine 1.87 H (0.6-1.4) mg/dl POC Creatinine (0.6-1.3) mg/dl Est Cr Clr Drug Dosing 31.9 ml/min Est GFR ( Amer) 37.7 Est GFR (Non-Af Amer) 32.5 BUN/Creatinine Ratio 11.4 (10-20) Glucose 184 H (70-99) mg/dl POC Glucose (other) (70-99) mg/dl Lactate 4.0 H* (0.4-2.0) mmol/L Calcium 8.6 (8.5-10.1) mg/dl POC Ioniz Calcium Marcie (1.12-1.32) mmol/l Magnesium 2.2 (1.8-2.4) mg/dl Total Bilirubin 1.4 H (0.2-1) mg/dl AST 17 (15-37) U/L ALT 13 (12-78) U/L Alkaline Phosphatase 95 (45-117) U/L Troponin I 0.031 (0-0.045) ng/ml Total Protein 6.1 L (6.4-8.2) gm/dl Albumin 3.0 L (3.4-5.0) gm/dl Globulin 3.1 (2.5-4.0) gm/dl Albumin/Globulin Ratio 1.0 (0.9-2) Procalcitonin (0-0.5) ng/ml Urine Color Urine Appearance (Clear) Urine pH (4.5-7.5) Ur Specific [place] (1.000-1.030) Urine Protein (Negative) Urine Glucose (UA) (Negative) Urine Ketones (Negative) Urine Blood (Negative) Urine Nitrite (Negative) Urine Bilirubin (Negative) Urine Urobilinogen (Negative) Ur Leukocyte Esterase (Negative) Urine RBC Urine WBC Ur Epithelial Cells Urine Bacteria 09/21/18 09/21/18 Range/Units 21:58 22:50 WBC (4.8-10.8) K/uL RBC (4.7-6.1) M/uL Hgb (14.0-18.0) g/dL POC Hgb (14.0-18.0) g/dl Hct (42-52) % POC Hct (42-52) % MCV (80-100) fL MCH (25-34) pg MCHC (32-36) g/dL RDW Std Deviation (36.4-46.3) fL RDW Coeff of Sandra (11.5-14.5) % Plt Count (130-400) K/uL MPV (7.4-10.4) fL Immature Gran % (Auto) % Neut % (Auto) % Lymph % (Auto) % [place] % (Auto) % Eos % (Auto) % Baso % (Auto) % Immature Gran # (Auto) (0.00-0.02) K/uL Neut # (Auto) (1.4-6.5) K/uL Lymph # (Auto) (1.2-3.4) K/uL [place] # (Auto) (0.11-0.59) K/uL Eos # (Auto) (0-0.5) K/uL Baso # (Auto) (0-0.2) K/uL PT (9.0-12.0) Seconds INR (0.9-1.1) APTT (21.0-31.0) Seconds PTT Ratio VBG pH 7.34 L (7.36-7.41) VBG pCO2 48 (38-50) mmHg VBG pO2 50 mmHg VBG HCO3 25 mmol/L VBG O2 Saturation 81.0 % VBG Base Excess -0.7 mEq/L Barometric Pressure 734.0 mm/Hg POC Sodium (135-144) mEq/L Sodium (136-145) mmol/L POC Potassium (3.3-5.0) mEq/L Potassium (3.5-5.1) mmol/L POC Chloride (101-112) mEq/L Chloride (98-107) mmol/L Carbon Dioxide (21-32) mmol/L POC Total CO2 (24-31) mEq/l Anion Gap (3-11) POC Anion Gap (16-25) mmol/L POC BUN (7-18) mg/dl BUN (7-18) mg/dl Creatinine (0.6-1.4) mg/dl POC Creatinine (0.6-1.3) mg/dl Est Cr Clr Drug Dosing ml/min Est GFR ( Amer) Est GFR (Non-Af Amer) BUN/Creatinine Ratio (10-20) Glucose (70-99) mg/dl POC Glucose (other) (70-99) mg/dl Lactate (0.4-2.0) mmol/L Calcium (8.5-10.1) mg/dl POC Ioniz Calcium Marcie (1.12-1.32) mmol/l Magnesium (1.8-2.4) mg/dl Total Bilirubin (0.2-1) mg/dl AST (15-37) U/L ALT (12-78) U/L Alkaline Phosphatase (45-117) U/L Troponin I (0-0.045) ng/ml Total Protein (6.4-8.2) gm/dl Albumin (3.4-5.0) gm/dl Globulin (2.5-4.0) gm/dl Albumin/Globulin Ratio (0.9-2) Procalcitonin (0-0.5) ng/ml Urine Color Yellow Urine Appearance Cloudy A (Clear) Urine pH 5.0 (4.5-7.5) Ur Specific [place] >= 1.030 (1.000-1.030) Urine Protein 3+ H (Negative) Urine Glucose (UA) Trace H (Negative) Urine Ketones Trace H (Negative) Urine Blood 3+ H (Negative) Urine Nitrite Negative (Negative) Urine Bilirubin 1+ H (Negative) Urine Urobilinogen Negative (Negative) Ur Leukocyte Esterase Negative (Negative) Urine RBC Not Reportable Urine WBC Not Reportable Ur Epithelial Cells Not Reportable Urine Bacteria Not Reportable Imaging Data Radiologist's Impression: Radiology results as stated below per my review and the radiologist's interpretation: CT angio chest PE protocol, CT abd pelvis IV con only CT DOSE: 3103.05 mGy.cm HISTORY: 82 years-old Male with PE. Acute cardiac arrest TECHNIQUE: Multiple CTA images of the chest were obtained after the intravenous administration of 119 ml Optiray 320. Coronal and sagittal MIPS were obtained from the axial data set and were submitted for review. All measurements were obtained according to NASCET criteria. Additionally, CT abdomen and pelvis with IV contrast only was obtained. A dose lowering technique was utilized adhering to the principles of ALARA. COMPARISON: Chest radiograph of same day, CT abdomen and pelvis 10/01/2007. FINDINGS: CTA: Moderate cardiomegaly. Prior median sternotomy and CABG. Left heart structures are not well opacified secondary to contrast bolus timing. There is no thoracic aortic aneurysm. Moderate calcified plaque of the thoracic aorta. Pulmonary arterial tree is opacified to the level of the proximal segmental branches and demonstrates no focal filling defects to suggest pulmonary thromboembolic disease. Distal segmental and subsegmental branches are not well opacified secondary to contrast bolus timing. CT CHEST: Heterogeneous thyroid. Nonspecific mildly prominent subcarinal and right hilar lymph nodes. Small to moderate bilateral pleural effusions with bibasilar consolidative and groundglass opacities. Additional irregular consolidative opacities are noted about the left upper lobe measuring up to 2.7 cm. No significant intralobular septal thickening. Endotracheal tube is noted terminating above the level the todd. Secretions are noted about the tracheobronchial tree. Air and fluid distention noted about the esophagus. Soft tissues are unremarkable. Bones appear to be intact. CT ABDOMEN/PELVIS: No pneumatosis or pneumoperitoneum. Artifact limits evaluation of the upper abdomen. Study is limited secondary to positioning of the patient's upper extremities. Mild gallbladder distention with color wall thickening and mucosal hyperemia. Additionally, there is increased enhancement of the biliary tree. There is suggestion of trace air about the distal common bile duct. Calcifications are seen within the region of the pancreatic head suggestive of chronic pancreatitis. Trace nonspecific edema about the aubrey hepatis. Spleen is unremarkable. Mild periportal edema with otherwise unremarkable appearance of the liver. Adrenal glands are unremarkable. Kidneys are within normal limits. Mild nonspecific bilateral perinephric stranding. Ureters are unremarkable. Decompressed urinary bladder with Mittal catheter. Extensive calcified plaque the abdominal aorta. Fusiform infrarenal abdominal aortic aneurysm, 3.9 x 3.6 cm has mildly increased in size from comparison, previously measuring 3.7 x 3.1 cm on comparison. No evidence of aneurysmal rupture. No adenopathy by CT size criteria. Fluid distended esophagus. Small duodenal diverticulum. No bowel obstruction. Rectal tube noted. Trace free pelvic fluid. Moderate stool volume of the rectum and sigmoid. Mild colonic diverticulosis without acute diverticulitis. Fluid-filled cecum suggests diarrheal illness. Appendix not diagnostically visualized. Mild generalized body wall edema. Degenerative changes of the spine, pelvis and hips. IMPRESSION: 1. Cardiomegaly without evidence of pulmonary thromboembolic disease. 2. Small to moderate bilateral pleural effusions with bibasilar consolidation and groundglass opacities suggestive of atelectasis or pneumonitis. Additionally, there is irregular consolidative nodular opacities of the left upper lobe suggestive of infectious or inflammatory pneumonitis. Follow-up recommended to document resolution. 3. Fluid distended esophagus. Correlate clinically to exclude aspiration. 4. Mild generalized body wall edema with trace abdominopelvic ascites. 5. Mild wall thickening and distention of the gallbladder with common bile duct enhancement and aubrey hepatis inflammation. Correlate clinically to exclude cholecystitis/cholangitis. 6. No bowel obstruction or bowel wall thickening. 7. Additional findings as above. The above report was generated using voice recognition software. It may contain grammatical, syntax or spelling errors. Electronically signed by: Nic Dao M.D. 09/21/2018 10:[address] angio head w con, CT angio neck with con CLINICAL HISTORY: 82 years-old Male with card arrest. Acute cardiac arrest COMPARISON STUDY: CT head of same day TECHNIQUE: Following the IV administration of 119 cc of Optiray 320, CT angiogram of the head and neck was performed from the skull base to the vertex. Images are reviewed in the axial, sagittal, and coronal planes. 3-D MIPS images are created and assessed. IV contrast was administered without complication. All measurements were obtained according to NASCET criteria. A dose lowering technique was utilized adhering to the principles of ALARA. FINDINGS: Severe mixed plaque formation of the thoracic aortic arch. Patency of the imaged bilateral subclavian arteries. Mixed plaque formation noted about the distal aspect of the bilateral common carotid arteries with severe mixed plaque formation of the carotid bulbs and proximal ICAs. Findings cause less than 50% luminal narrowing about the right carotid bulb and proximal right ICA. There is less than 50% luminal narrowing of the common carotid artery and less than 50% luminal narrowing of the proximal left ICA. Calcified plaque about the cavernous and supraclinoid segments without high-grade stenosis. Bilateral middle and anterior cerebral arteries are widely patent. Large calcified plaque at the origin of the left vertebral artery is noted resulting in approximately 50% luminal narrowing. Calcified plaque at the origin of the right vertebral artery results in less than 50% luminal narrowing. No aneurysm, dissection, high-grade stenosis or proximal branch occlusion identified. Basilar and bilateral posterior cerebral arteries appear patent. Bilateral pleural effusions with dependent consolidation. Endotracheal tube noted within the trachea. Airway secretions are noted. Gaseous distention of the esophagus. Soft tissues appear unremarkable. Prior median sternotomy. Degenerative changes of the spine. IMPRESSION: 1. Extensive mixed plaque formation of the arterial structures as above, notably involving the carotid bulbs without aneurysm, dissection, high-grade stenosis or proximal branch occlusion identified. 2. Multifocal low-grade stenoses as above. 3. Bilateral pleural effusions with dependent consolidation, partially imaged. 4. Additional findings as above. The above report was generated using voice recognition software. It may contain grammatical, syntax or spelling errors. Electronically signed by: Nic Dao M.D. 09/21/2018 11:[address] head/brain wo con CLINICAL HISTORY: 82 years-old Male with arrest. Acute cardiac arrest with respiratory failure TECHNIQUE: Multiple axial CT images of the head were obtained without contrast. A dose lowering technique was utilized adhering to the principles of ALARA. COMPARISON: Head CT 07/20/2018 FINDINGS: No acute intracranial hemorrhage, midline shift, intracranial mass, hydrocephalus, territorial ischemia or abnormal extra-axial collection. Age- related involutional changes. Patchy white matter hypodensities suggest chronic microvascular ischemic disease. Cerebral vascular calcifications are noted. The calvarium is intact. Mild mucosal thickening of the ethmoid air cells. Soft tissues and orbits are unremarkable. Prior bilateral cataract repair. IMPRESSION: No acute intracranial abnormality. The above report was generated using voice recognition software. It may contain grammatical, syntax or spelling errors. Electronically signed by: Nic Dao M.D. 09/21/2018 10:39 PM XR chest 1V portable HISTORY: 82 years-old Male Sepsis acute sepsis COMPARISON: Chest radiograph 07/20/2018 TECHNIQUE: Portable AP view of the chest FINDINGS: Cardiac silhouette is enlarged, unchanged. Prior median sternotomy. Endotracheal tube overlies the midline, 3.2 cm superior to the todd. Small bilateral pl eural effusions with pulmonary vascular congestion and mild interstitial coarsening. Patchy bibasilar opacities. Degenerative changes of the shoulders and spine. IMPRESSION: 1. Endotracheal tube terminates 3.2 cm superior to the todd. 2. Cardiomegaly with pulmonary edema. 3. Small pleural effusions with bibasilar opacities. The above report was generated using voice recognition software. It may contain grammatical, syntax or spelling errors. Electronically signed by: Nic Dao M.D. 09/21/2018 10:20 PM ECG Data Attestation: I personally reviewed and interpreted this ECG as follows: Indication: other (cardiac arrest) Rate (beats per minute): 86 Rhythm: sinus rhythm Findings: + LBBB (pattern noted) and + ST depression (Lateral); no PVC Comparison ECG Date: from (07/29/18) Change: the following changes noted (LBBB is new) Additional Comments: Pre-hospital EKG: Sinus tachycardia, 109 BPM, LBBB pattern noted, diffuse ST depressions noted, no ectopy Blood Pressure Blood Pressure Findings: Low blood pressure Blood Pressure Disposition: further management by hospitalist KARLA Narrative Patient is an 82-year-old male who presented to the emergency department after cardiac arrest. The patient was not complaining of anything earlier in the day according to his significant other. Additional history was obtained from the prehospital personnel as well. The patient was intubated prior to arrival. He also received IV epinephrine. He also received CPR by the family as well as the Evaristo device. The patient had spontaneous return of circulation. Upon arrival he was made a code [place]. The patient did have some obvious brain activity with trying to reach for the tube but he was not able to follow commands completely. I discussed the patient's laboratory and radiographic studies with his family members. I also discussed his case with the on-call [facility] hospitalist group as well as the on-call last waxer. The farmer vegetable is familiar with this patient and does not recommend [employer] Tender at this time given the patient's known anatomy. The patient does not have a definite ST segment elevation CA and I do not think he would benefit from cardiac catheterization at this time given his most recent cardiac catheterization report. I did review this report with the [facility]ist. The patient was treated with IV fluids. He was also placed on IV antibiotics as well as IV pressors. The patient was also evaluated by the electromatic typist in the emergency department. The patient's condition is very serious at this time. This was made known to the family members. Impression & Plan Cardiac arrest, Respiratory arrest, Abnormal ECG Critical Care Time Critical Care Time: Yes Total Critical Care Time: 60 I have personally spent 60 minutes of critical care time in the direct management of this patient. This includes bedside care, interpretation of diagnostic studies, and testing, discussion with consultants, patient, and family members, and other required patient management activities. This 60 minutes is in excess of all separately billable procedures. Discharge Plan Visit Data *Final* Discharge Date/Time: 09/22/18 00:12 Chief Complaint: Cardiac Arrest/CPR Stated Complaint: POST CARDIAC ARREST ED Provider: Maksim Hernandez Discharge Problem: Cardiac arrest, Respiratory arrest, Abnormal ECG Patient Disposition: Admitted As Inpatient Discharge Instructions Interventions: ED Discharge Assessment Last Done: 09/22/18 00:12 The scribe's documentation has been prepared under my direction and personally reviewed by me in its entirety. I confirm that the note above accurately reflects all work, treatment, procedures, and medical decision making performed by me.
[2018-09-21 22:22] LABS: Bilirubin,Total 1.4 mg/dl (0.2-1); Globulin 3.1 gm/dl (2.5-4.0); Total Protein 6.1 gm/dl (6.4-8.2); Troponin I 0.031 ng/ml (0-0.045)
--- NOTE | 2018-09-21 22:22 | XRay Report ---
XR chest 1V portable HISTORY: 82 years-old Male Sepsis acute sepsis COMPARISON: Chest radiograph 07/20/2018 TECHNIQUE: Portable AP view of the chest FINDINGS: Cardiac silhouette is enlarged, unchanged. Prior median sternotomy. Endotracheal tube overlies the mi dline, 3.2 cm superior to the todd. Small bilateral pleural effusions with pulmonary vascular conge stion and mild interstitial coarsening. Patchy bibasilar opacities. Degenerative changes of the shoul ders and spine. IMPRESSION: 1. Endotracheal tube terminates 3.2 cm superior to the todd. 2. Cardiomegaly with pulmonary edema. 3. Small pleural effusions with bibasilar opacities. The above report was generated using voice recognition software. It may contain grammatical, syntax o r spelling errors. Electronically signed by: Nic Dao M.D. 09/21/2018 10:20 PM
[2018-09-21 22:23] LABS: Base Excess VBG -0.7 mEq/L; pH VBG 7.34 (7.36-7.41)
[2018-09-21] MEDS ORDERED: SODIUM CHLORIDE 0.9% 1000ML 1,000 ML IV ONE (22:31)
[2018-09-21] MEDS ORDERED: OPTIRAY 320 125ml IV PRN (22:32)
[2018-09-21] MEDS ORDERED: MIDAZOLAM HCL 5 MG/ML 1 ML VIAL IV STA (22:35)
[2018-09-21] MEDS ORDERED: fentaNYL citrate 100 MCG/2 ML VIAL IV ONE (22:35)
[2018-09-21] MEDS ORDERED: fentaNYL citrate 100 MCG/2 ML VIAL ONE (22:36)
[2018-09-21] MEDS: MIDAZOLAM HCL 1 MG/ML 2ML VIAL ONE ×2 (22:39→22:42)
--- NOTE | 2018-09-21 22:40 | CT Scan Report ---
CT head/brain wo con CLINICAL HISTORY: 82 years-old Male with arrest. Acute cardiac arrest with respiratory failure TECHNIQUE: Multiple axial CT images of the head were obtained without contrast. A dose lowering tech nique was utilized adhering to the principles of ALARA. COMPARISON: Head CT 07/20/2018 FINDINGS: No acute intracranial hemorrhage, midline shift, intracranial mass, hydrocephalus, territorial ischem ia or abnormal extra-axial collection. Age-related involutional changes. Patchy white matter hypodens ities suggest chronic microvascular ischemic disease. Cerebral vascular calcifications are noted. The calvarium is intact. Mild mucosal thickening of the ethmoid air cells. Soft tissues and orbits a re unremarkable. Prior bilateral cataract repair. IMPRESSION: No acute intracranial abnormality. The above report was generated using voice recognition software. It may contain grammatical, syntax o r spelling errors. Electronically signed by: Nic Dao M.D. 09/21/2018 10:39 PM
--- NOTE | 2018-09-21 22:57 | CT Scan Report ---
CT angio chest PE protocol, CT abd pelvis IV con only CT DOSE: 3103.05 mGy.cm HISTORY: 82 years-old Male with PE. Acute cardiac arrest TECHNIQUE: Multiple CTA images of the chest were obtained after the intravenous administration of 119 ml Optiray 320. Coronal and sagittal MIPS were obtained from the axial data set and were submitted for review. All measurements were obtained according to NASCET criteria. Additionally, CT abdomen an d pelvis with IV contrast only was obtained. A dose lowering technique was utilized adhering to the p rinciples of JAN. COMPARISON: Chest radiograph of same day, CT abdomen and pelvis 10/01/2007. FINDINGS: CTA: Moderate cardiomegaly. Prior median sternotomy and CABG. Left heart structures are not well opacified secondary to contrast bolus timing. There is no thoracic aortic aneurysm. Moderate calcified plaque of the thoracic aorta. Pulmonary arterial tree is opacified to the level of the proximal segmental br anches and demonstrates no focal filling defects to suggest pulmonary thromboembolic disease. Distal segmental and subsegmental branches are not well opacified secondary to contrast bolus timing. CT CHEST: Heterogeneous thyroid. Nonspecific mildly prominent subcarinal and right hilar lymph nodes. Small to moderate bilateral pleural effusions with bibasilar consolidative and groundglass opacities. Addition al irregular consolidative opacities are noted about the left upper lobe measuring up to 2.7 cm. No s ignificant intralobular septal thickening. Endotracheal tube is noted terminating above the level the todd. Secretions are noted about the tracheobronchial tree. Air and fluid distention noted about t he esophagus. Soft tissues are unremarkable. Bones appear to be intact. CT ABDOMEN/PELVIS: No pneumatosis or pneumoperitoneum. Artifact limits evaluation of the upper abdomen. Study is limited secondary to positioning of the patient's upper extremities. Mild gallbladder distention with color wall thickening and mucosal hyperemia. Additionally, there is increased enhancement of the biliary tr ee. There is suggestion of trace air about the distal common bile duct. Calcifications are seen withi n the region of the pancreatic head suggestive of chronic pancreatitis. Trace nonspecific edema about the aubrey hepatis. Spleen is unremarkable. Mild periportal edema with otherwise unremarkable appeara nce of the liver. Adrenal glands are unremarkable. Kidneys are within normal limits. Mild nonspecific bilateral perinephric stranding. Ureters are unremarkable. Decompressed urinary bladder with Mittal c atheter. Extensive calcified plaque the abdominal aorta. Fusiform infrarenal abdominal aortic aneurys m, 3.9 x 3.6 cm has mildly increased in size from comparison, previously measuring 3.7 x 3.1 cm on co mparison. No evidence of aneurysmal rupture. No adenopathy by CT size criteria. Fluid distended esoph angel. Small duodenal diverticulum. No bowel obstruction. Rectal tube noted. Trace free pelvic fluid. Moderate stool volume of the rectum and sigmoid. Mild colonic diverticulosis without acute diverticul itis. Fluid-filled cecum suggests diarrheal illness. Appendix not diagnostically visualized. Mild gen eralized body wall edema. Degenerative changes of the spine, pelvis and hips. IMPRESSION: 1. Cardiomegaly without evidence of pulmonary thromboembolic disease. 2. Small to moderate bilateral pleural effusions with bibasilar consolidation and groundglass opaciti es suggestive of atelectasis or pneumonitis. Additionally, there is irregular consolidative nodular o pacities of the left upper lobe suggestive of infectious or inflammatory pneumonitis. Follow-up recom mended to document resolution. 3. Fluid distended esophagus. Correlate clinically to exclude aspiration. 4. Mild generalized body wall edema with trace abdominopelvic ascites. 5. Mild wall thickening and distention of the gallbladder with common bile duct enhancement and aubrey hepatis inflammation. Correlate clinically to exclude cholecystitis/cholangitis. 6. No bowel obstruction or bowel wall thickening. 7. Additional findings as above. The above report was generated using voice recognition software. It may contain grammatical, syntax o r spelling errors. Electronically signed by: Nic Dao M.D. 09/21/2018 10:54 PM
[2018-09-21] MEDS ORDERED: fentaNYL citrate 100 MCG/2 ML VIAL IV PRN (22:58)
--- NOTE | 2018-09-21 23:06 | CT Scan Report ---
CT angio head w con, CT angio neck with con CLINICAL HISTORY: 82 years-old Male with card arrest. Acute cardiac arrest COMPARISON STUDY: CT head of same day TECHNIQUE: Following the IV administration of 119 cc of Optiray 320, CT angiogram of the head and nec k was performed from the skull base to the vertex. Images are reviewed in the axial, sagittal, and co curt planes. 3-D MIPS images are created and assessed. IV contrast was administered without complica tion. All measurements were obtained according to NASCET criteria. A dose lowering technique was util ized adhering to the principles of ALARA. FINDINGS: Severe mixed plaque formation of the thoracic aortic arch. Patency of the imaged bilateral subclavian arteries. Mixed plaque formation noted about the distal aspect of the bilateral common carotid arter ies with severe mixed plaque formation of the carotid bulbs and proximal ICAs. Findings cause less th an 50% luminal narrowing about the right carotid bulb and proximal right ICA. There is less than 50% luminal narrowing of the common carotid artery and less than 50% luminal narrowing of the proximal le ft ICA. Calcified plaque about the cavernous and supraclinoid segments without high-grade stenosis. B ilateral middle and anterior cerebral arteries are widely patent. Large calcified plaque at the origi n of the left vertebral artery is noted resulting in approximately 50% luminal narrowing. Calcified p laque at the origin of the right vertebral artery results in less than 50% luminal narrowing. No aneu rysm, dissection, high-grade stenosis or proximal branch occlusion identified. Basilar and bilateral posterior cerebral arteries appear patent. Bilateral pleural effusions with dependent consolidation. Endotracheal tube noted within the trachea. Airway secretions are noted. Gaseous distention of the esophagus. Soft tissues appear unremarkable. Prior median sternotomy. Degenerative changes of the spine. IMPRESSION: 1. Extensive mixed plaque formation of the arterial structures as above, notably involving the caroti d bulbs without aneurysm, dissection, high-grade stenosis or proximal branch occlusion identified. 2. Multifocal low-grade stenoses as above. 3. Bilateral pleural effusions with dependent consolidation, partially imaged. 4. Additional findings as above. The above report was generated using voice recognition software. It may contain grammatical, syntax o r spelling errors. Electronically signed by: Nic Dao M.D. 09/21/2018 11:05 PM
[2018-09-21] MEDS: PATIENT'S HEIGHT AND/OR WEIGHT NEEDED SCH (23:08)
[2018-09-21 23:09] LABS: Blood Urine 3+ (Negative); Color Urine Yellow; Glucose Urine UA Trace (Negative); Ketones Urine Trace (Negative); Leukocyte Esterase Urine Negative (Negative); Nitrite Urine Negative (Negative); Protein Urine 3+ (Negative); Specific Gravity Urine >= 1.030 (1.000-1.030); Urobilinogen Urine Negative (Negative)
[2018-09-21 23:10] LABS: Bilirubin Urine 1+ (Negative)
[2018-09-21 23:13] LABS: Appearance Urine Cloudy (Clear)
[2018-09-21] MEDS ORDERED: cefTRIAXone SODIUM 2,000 MG in DEXTROSE 5% 50 ML IV STA (23:14)
[2018-09-21] MEDS ORDERED: NOREPINEPHRINE BIT INJ 8 MG in DEXTROSE 5% 500 ML IV SCH (23:15)
--- NOTE | 2018-09-21 23:47 | History & Physical Report ---
Date of Service September 21, 2018 Assessment & Plan (1) Cardiac arrest: 82-year-old male was admitted to the ICU following cardiac arrest and ROSC. Cardiac arrest, ROSC: Apparently no complaints earlier in the day. ~15 minutes of CPR in the field. Intubated by EMS. ROSC in the ED. Lactate 4.0. Procalcitonin negative. Post intubation pCXR notes ET tube, pulmonary edema, and small pleural effusions with bibasilar opacities. See CT imaging results as below. Initial troponin 0.031. EKG s/p ROSC was NSR with widened QRS. Unclear source of cardiac arrest, though pulmonary source is leading possibility. - In ED, given IVF and started on propofol. Had some hypotension 70s/40s, so was switched to fentanyl and Versed for sedation. Then started on norepinephrine. Started on hypothermia protocol due to not following commands. Given an empiric dose of ceftriaxone 2 gm IV. - ED spoke with Dr. Christine (interventional cardiology). No role for emergent catheterization. Imaging results (see full reports): - CT head: No acute intracranial abnormality. - CTA head and neck: Extensive plaque formation, multifocal low-grade stenoses. - CTA chest, CT a/p IV contrast only: Cardiomegaly, small to moderate bilateral pleural effusions, trace abdominal ascites. Infrarenal AAA is 3.9 x 3.6 cm, mildly increased in size from prior. No evidence of aneurysmal rupture. Combined systolic and diastolic heart failure, ischemic cardiopathy, as well as cardiac stenting and 4-vessel CABG in 1983: Underwent cardiac cath on July 26, 2018. See full report, though noted severe multivessel coronary disease as well as an unsuccessful attempts to intervene on one vessel. Plan to maximize a ntianginal therapy. Echocardiogram in July 2018 noted EF 45-50%, regional wall motion abnormalities noted (see full report). Acute on CKD stage III: Admit Cr 1.87, with baseline perhaps Cr 1.3 range. Ongoing medical issues: - Hypertension, hyperlipidemia, peripheral vascular disease: Per cardiology note in July 2018, recently kept on Ranexa, aspirin, Plavix, and high intensity atorvastatin. - Chronic anemia: Admit Hb 10.1, about at baseline. - Lower extremity edema: Thought to be due to Florinef. Placed on MEGAN hose bilaterally. Advised against diuretic due to recent falls and hypotension. However, reportedly on Lasix most recently. Orthostasis: Recent imdur and beta-ross stopped. Patient was placed on fludrocortisone 0.2 mg daily and midodrine 5 mg TID. - Type 2 diabetes: Admission in June 2018 for hypoglycemia. - Moderate aortic stenosis. - AAA: See imaging report above. - GERD: Normally is on pantoprazole at home. Continue here while intubated. - Rectal bleeding: Thought to be internal hemorrhoids. - Obstructive sleep apnea. Vascular and Alzheimer's dementia. Vitamin D deficiency. Monoclonal gammopathy of undetermined significance. Code status: Per discussions with family at the patient's bedside, he would wish to remain full code. Diet: N.p.o. while intubated. Last noted diet was regular with thin liquids. DVT prophy: Lovenox. PT/OT: Deferred. Disbo: Admitted to ICU. Critically ill. (2) Systolic and diastolic CHF, chronic: (3) CKD (chronic kidney disease), stage III: (4) HTN (hypertension), benign: (5) HLD (hyperlipidemia): (6) PVD (peripheral vascular disease): (7) Chronic anemia: (8) Lower extremity edema: (9) Diabetes: (10) Aortic stenosis: (11) AAA (abdominal aortic aneurysm): (12) GERD (gastroesophageal reflux disease): (13) Rectal bleeding: (14) KAY (obstructive sleep apnea): History of Present Illness Primary Care Provider: Tiburcio Herrera MD 82-year-old male presents via EMS for cardiac arrest. On discussion with the family after arrival to the ED, the patient was having an apparently normal day prior to this event. Patient reportedly called out to his after a questionable fall in his bathroom. He was found on the floor initially not breathing. His son, who lives above the patient's house, was able to arrive within 5 minutes and found the patient pulseless and apneic. CPR was started and continued for about 15 minutes. Reportedly EMS provided 2 rounds of epinephrine but no defibrillation was given. Reported rhythm throughout this time was asystole. He was intubated prior to arrival. Patient achieved ROSC once in the ED. Per the ED physicians account, patient was a GCS of 8 (but intubated), pulling on his ET tube, but not following commands. At that point he was further sedated. Allergies Allergy/AdvReac Type Severity Reaction Status Date / Time iodine Allergy Severe Unknown Verified 08/26/18 14:01 Penicillins Allergy Severe AMOXIL = Verified 08/26/18 14:01 ANAPHYLACTIC RXN clavulanic acid Allergy Unknown Unknown Verified 08/26/18 14:01 morphine AdvReac Mild VOMITING Verified 08/26/18 14:01 amoxicillin AdvReac Verified 08/26/18 14:01 Home Medications Home Medications Medication Instructions Recorded Confirmed Type atorvastatin 40 mg PO HS 02/01/18 09/21/18 History nitroglycerin [Nitrostat] 0.4 mg SUBLINGUAL DIRECTED PRN 02/01/18 09/21/18 History aspirin 81 mg PO DAILY 06/09/18 09/21/18 History cholecalciferol (vitamin D3) 1,000 unit PO DAILY 06/09/18 09/21/18 History [Vitamin D3] clopidogrel 75 mg PO DAILY 06/09/18 09/21/18 History cyanocobalamin (vitamin B-12) 1,000 mcg PO DAILY 06/09/18 09/21/18 History [Vitamin B-12] famotidine 20 mg PO BID 06/09/18 09/21/18 History pantoprazole 40 mg PO DAILY 06/09/18 09/21/18 History hydrocortisone [Proctosol HC] 1 applic EXT Q8H PRN #15 g 08/05/18 09/21/18 Rx ranolazine 1,000 mg PO BID #60 tab 08/05/18 09/21/18 Rx sennosides-docusate sodium 1 tab PO BID #60 tab 08/05/18 09/21/18 Rx [Senokot-S] lancets 33 gauge #100 ea 08/20/18 09/21/18 Rx furosemide 40 mg PO DAILY 09/21/18 09/21/18 History midodrine 10 mg PO QAM 09/21/18 09/22/18 History midodrine 5 mg PO BID 09/22/18 09/22/18 History Past Med/Surg History Medical History Chronic combined systolic and diastolic heart failure Ischemic cardiomyopathy Surgical History H/O heart artery stent (Resolved) History of quadruple bypass (Resolved) Family History Other Family history non-contributory Social History Preferred Language: [place] Citizen Communication Ability: Unable Beliefs That Will Affect Care: None marital status: Current Living Situation: Spouse Feels Safe at Home: Yes Smoking Status: Never smoker Second Hand Exposure: No Hx Alcohol Use: No Hx Substance Use: No Review of Systems Review of Systems: Unable to obtain ROS due to intubation sedation. Physical Exam 2 Physical Exam: GENERAL: Intubated and sedated. HENT: Normocephalic, atraumatic. Intubated. EYES: Normal conjunctiva. Sclera non-icteric. NECK: Inspection normal. CARDIAC: +S1S2 regular bradycardia, 3/6 JOHANNA. RESPIRATORY: Clear to auscultation. No wheezes or rales. GI: +BS, soft, non-distended. EXTREMITIES: 2+ bilateral lower extremity edema. NEURO: Intubated and sedated. Lines: I/O in left montoya. Multiple PIV. Intubated. NG tube placed. Results & Data Vital Signs (Past 12 Hours) Vital Signs Temp Pulse Resp BP Pulse Ox 09/21/18 23:40 55 L 96 09/21/18 23:35 54 L 94 09/21/18 23:30 34.8 C L 56 L 89/54 L 91 09/21/18 23:25 55 L 87/55 L 90 09/21/18 23:22 35.0 C L 09/21/18 23:20 55 L 87/57 L 91 09/21/18 23:15 52 L 77/48 L 93 09/21/18 23:10 53 L 95 09/21/18 23:05 54 L 95 09/21/18 23:03 35.2 C L 09/21/18 23:00 55 L 72/46 L 94 09/21/18 22:55 58 L 84/50 L 94 09/21/18 22:50 58 L 77/48 L 98 09/21/18 22:45 64 72/45 L 100 09/21/18 22:43 35.6 C L 66 79/50 L 100 09/21/18 22:40 69 86/50 L 99 09/21/18 22:38 69 94/48 L 09/21/18 22:37 69 69/57 L 09/21/18 22:35 65 12 98 09/21/18 22:00 82 114/68 100 09/21/18 21:55 36.1 C L 09/21/18 21:53 83 22 100 09/21/18 21:46 36.1 C L 86 10 L 108/76 100 Laboratory Results 09/21/18 09/21/18 09/21/18 Range/Units 22:50 21:58 21:58 WBC (4.8-10.8) K/uL RBC (4.7-6.1) M/uL Hgb (14.0-18.0) g/dL POC Hgb (14.0-18.0) g/dl Hct (42-52) % POC Hct (42-52) % MCV (80-100) fL MCH (25-34) pg MCHC (32-36) g/dL RDW Std Deviation (36.4-46.3) fL RDW Coeff of Sandra (11.5-14.5) % Plt Count (130-400) K/uL MPV (7.4-10.4) fL Immature Gran % (Auto) % Neut % (Auto) % Lymph % (Auto) % [place] % (Auto) % Eos % (Auto) % Baso % (Auto) % Immature Gran # (Auto) (0.00-0.02) K/uL Neut # (Auto) (1.4-6.5) K/uL Lymph # (Auto) (1.2-3.4) K/uL [place] # (Auto) (0.11-0.59) K/uL Eos # (Auto) (0-0.5) K/uL Baso # (Auto) (0-0.2) K/uL PT (9.0-12.0) Seconds INR (0.9-1.1) APTT (21.0-31.0) Seconds PTT Ratio VBG pH 7.34 L (7.36-7.41) VBG pCO2 48 (38-50) mmHg VBG pO2 50 mmHg VBG HCO3 25 mmol/L VBG O2 Saturation 81.0 % VBG Base Excess -0.7 mEq/L Barometric Pressure 734.0 mm/Hg POC Sodium (135-144) mEq/L Sodium 140 (136-145) mmol/L POC Potassium (3.3-5.0) mEq/L Potassium 3.4 L (3.5-5.1) mmol/L POC Chloride (101-112) mEq/L Chloride 103 (98-107) mmol/L Carbon Dioxide 27 (21-32) mmol/L POC Total CO2 (24-31) mEq/l Anion Gap 10.0 (3-11) POC Anion Gap (16-25) mmol/L POC BUN (7-18) mg/dl BUN 21 H (7-18) mg/dl Creatinine 1.87 H (0.6-1.4) mg/dl POC Creatinine (0.6-1.3) mg/dl Est Cr Clr Drug Dosing 31.9 ml/min Est GFR ( Amer) 37.7 Est GFR (Non-Af Amer) 32.5 BUN/Creatinine Ratio 11.4 (10-20) Glucose 184 H (70-99) mg/dl POC Glucose (other) (70-99) mg/dl Lactate (0.4-2.0) mmol/L Calcium 8.6 (8.5-10.1) mg/dl POC Ioniz Calcium Marcie (1.12-1.32) mmol/l Magnesium 2.2 (1.8-2.4) mg/dl Total Bilirubin 1.4 H (0.2-1) mg/dl AST 17 (15-37) U/L ALT 13 (12-78) U/L Alkaline Phosphatase 95 (45-117) U/L Troponin I 0.031 (0-0.045) ng/ml Total Protein 6.1 L (6.4-8.2) gm/dl Albumin 3.0 L (3.4-5.0) gm/dl Globulin 3.1 (2.5-4.0) gm/dl Albumin/Globulin Ratio 1.0 (0.9-2) Procalcitonin (0-0.5) ng/ml Urine Color Yellow Urine Appearance Cloudy A (Clear) Urine pH 5.0 (4.5-7.5) Ur Specific [place] >= 1.030 (1.000-1.030) Urine Protein 3+ H (Negative) Urine Glucose (UA) Trace H (Negative) Urine Ketones Trace H (Negative) Urine Blood 3+ H (Negative) Urine Nitrite Negative (Negative) Urine Bilirubin 1+ H (Negative) Urine Urobilinogen Negative (Negative) Ur Leukocyte Esterase Negative (Negative) Urine RBC Not Reportable Urine WBC Not Reportable Ur Epithelial Cells Not Reportable Urine Bacteria Not Reportable 09/21/18 09/21/18 09/21/18 Range/Units 21:58 21:58 21:58 WBC 8.92 (4.8-10.8) K/uL RBC 3.38 L (4.7-6.1) M/uL Hgb 10.1 L (14.0-18.0) g/dL POC Hgb (14.0-18.0) g/dl Hct 31.1 L (42-52) % POC Hct (42-52) % MCV 92.0 (80-100) fL MCH 29.9 (25-34) pg MCHC 32.5 (32-36) g/dL RDW Std Deviation 55.0 H (36.4-46.3) fL RDW Coeff of Sandra 16.4 H (11.5-14.5) % Plt Count 251 (130-400) K/uL MPV 9.8 (7.4-10.4) fL Immature Gran % (Auto) 0.6 % Neut % (Auto) 39.6 % Lymph % (Auto) 49.8 % [place] % (Auto) 7.1 % Eos % (Auto) 2.7 % Baso % (Auto) 0.2 % Immature Gran # (Auto) 0.05 H (0.00-0.02) K/uL Neut # (Auto) 3.54 (1.4-6.5) K/uL Lymph # (Auto) 4.44 H (1.2-3.4) K/uL [place] # (Auto) 0.63 H (0.11-0.59) K/uL Eos # (Auto) 0.24 (0-0.5) K/uL Baso # (Auto) 0.02 (0-0.2) K/uL PT 12.4 H (9.0-12.0) Seconds INR 1.2 H (0.9-1.1) APTT 25.1 (21.0-31.0) Seconds PTT Ratio 0.9 VBG pH (7.36-7.41) VBG pCO2 (38-50) mmHg VBG pO2 mmHg VBG HCO3 mmol/L VBG O2 Saturation % VBG Base Excess mEq/L Barometric Pressure mm/Hg POC Sodium (135-144) mEq/L Sodium (136-145) mmol/L POC Potassium (3.3-5.0) mEq/L Potassium (3.5-5.1) mmol/L POC Chloride (101-112) mEq/L Chloride (98-107) mmol/L Carbon Dioxide (21-32) mmol/L POC Total CO2 (24-31) mEq/l Anion Gap (3-11) POC Anion Gap (16-25) mmol/L POC BUN (7-18) mg/dl BUN (7-18) mg/dl Creatinine (0.6-1.4) mg/dl POC Creatinine (0.6-1.3) mg/dl Est Cr Clr Drug Dosing ml/min Est GFR ( Amer) Est GFR (Non-Af Amer) BUN/Creatinine Ratio (10-20) Glucose (70-99) mg/dl POC Glucose (other) (70-99) mg/dl Lactate 4.0 H* (0.4-2.0) mmol/L Calcium (8.5-10.1) mg/dl POC Ioniz Calcium Marcie (1.12-1.32) mmol/l Magnesium (1.8-2.4) mg/dl Total Bilirubin (0.2-1) mg/dl AST (15-37) U/L ALT (12-78) U/L Alkaline Phosphatase (45-117) U/L Troponin I (0-0.045) ng/ml Total Protein (6.4-8.2) gm/dl Albumin (3.4-5.0) gm/dl Globulin (2.5-4.0) gm/dl Albumin/Globulin Ratio (0.9-2) Procalcitonin (0-0.5) ng/ml Urine Color Urine Appearance (Clear) Urine pH (4.5-7.5) Ur Specific [place] (1.000-1.030) Urine Protein (Negative) Urine Glucose (UA) (Negative) Urine Ketones (Negative) Urine Blood (Negative) Urine Nitrite (Negative) Urine Bilirubin (Negative) Urine Urobilinogen (Negative) Ur Leukocyte Esterase (Negative) Urine RBC Urine WBC Ur Epithelial Cells Urine Bacteria 09/21/18 09/21/18 Range/Units 21:58 21:51 WBC (4.8-10.8) K/uL RBC (4.7-6.1) M/uL Hgb (14.0-18.0) g/dL POC Hgb 10.2 L (14.0-18.0) g/dl Hct (42-52) % POC Hct 30 L (42-52) % MCV (80-100) fL MCH (25-34) pg MCHC (32-36) g/dL RDW Std Deviation (36.4-46.3) fL RDW Coeff of Sandra (11.5-14.5) % Plt Count (130-400) K/uL MPV (7.4-10.4) fL Immature Gran % (Auto) % Neut % (Auto) % Lymph % (Auto) % [place] % (Auto) % Eos % (Auto) % Baso % (Auto) % Immature Gran # (Auto) (0.00-0.02) K/uL Neut # (Auto) (1.4-6.5) K/uL Lymph # (Auto) (1.2-3.4) K/uL [place] # (Auto) (0.11-0.59) K/uL Eos # (Auto) (0-0.5) K/uL Baso # (Auto) (0-0.2) K/uL PT (9.0-12.0) Seconds INR (0.9-1.1) APTT (21.0-31.0) Seconds PTT Ratio VBG pH (7.36-7.41) VBG pCO2 (38-50) mmHg VBG pO2 mmHg VBG HCO3 mmol/L VBG O2 Saturation % VBG Base Excess mEq/L Barometric Pressure mm/Hg POC Sodium 140 (135-144) mEq/L Sodium (136-145) mmol/L POC Potassium 3.4 (3.3-5.0) mEq/L Potassium (3.5-5.1) mmol/L POC Chloride 99 L (101-112) mEq/L Chloride (98-107) mmol/L Carbon Dioxide (21-32) mmol/L POC Total CO2 25 (24-31) mEq/l Anion Gap (3-11) POC Anion Gap 20.0 (16-25) mmol/L POC BUN 22 H (7-18) mg/dl BUN (7-18) mg/dl Creatinine (0.6-1.4) mg/dl POC Creatinine 1.8 H (0.6-1.3) mg/dl Est Cr Clr Drug Dosing ml/min Est GFR ( Amer) Est GFR (Non-Af Amer) BUN/Creatinine Ratio (10-20) Glucose (70-99) mg/dl POC Glucose (other) 185 H (70-99) mg/dl Lactate (0.4-2.0) mmol/L Calcium (8.5-10.1) mg/dl POC Ioniz Calcium Marcie 1.12 (1.12-1.32) mmol/l Magnesium (1.8-2.4) mg/dl Total Bilirubin (0.2-1) mg/dl AST (15-37) U/L ALT (12-78) U/L Alkaline Phosphatase (45-117) U/L Troponin I (0-0.045) ng/ml Total Protein (6.4-8.2) gm/dl Albumin (3.4-5.0) gm/dl Globulin (2.5-4.0) gm/dl Albumin/Globulin Ratio (0.9-2) Procalcitonin < 0.05 (0-0.5) ng/ml Urine Color Urine Appearance (Clear) Urine pH (4.5-7.5) Ur Specific [place] (1.000-1.030) Urine Protein (Negative) Urine Glucose (UA) (Negative) Urine Ketones (Negative) Urine Blood (Negative) Urine Nitrite (Negative) Urine Bilirubin (Negative) Urine Urobilinogen (Negative) Ur Leukocyte Esterase (Negative) Urine RBC Urine WBC Ur Epithelial Cells Urine Bacteria Medications Administered Fentanyl Citrate (Fentanyl Citrate) 100 mcg IV Q2H PRN PRN Reason: Severe Pain (7,8,9,10) Stop: 10/05/18 22:57 Last Admin: 09/21/18 23:49 Dose: 100 mcg Documented by: [id number] Propofol (Diprivan) 1,000 mg in 100 mls @ 0 mls/hr IV .Q0M PRN; Protocol PRN Reason: TITRATE Stop: 09/24/18 22:14 Last Titration: 09/21/18 23:56 Dose: 0 mcg/kg/min, 0 mls/hr Documented by: [id number] Titration: 09/21/18 22:57 Dose: 0 mcg/kg/min, 0 mls/hr Documented by: [id number] Titration: 09/21/18 22:47 Dose: 5 mcg/kg/min, 2.5 mls/hr Documented by: [id number] Titration: 09/21/18 22:41 Dose: 10 mcg/kg/min, 5.1 mls/hr Documented by: [id number] Admin: 09/21/18 22:05 Dose: 5 mcg/kg/min, 2.5 mls/hr Documented by: [id number] Cosigned by: [id number] Norepinephrine Bitartrate 8 mg (/ Dextrose) 508 mls @ 17.09 mls/hr IV .Q24H DAYSI; Protocol Stop: 10/21/18 23:14 Last Admin: 09/21/18 23:27 Dose: 0.05 mcg/kg/min, 17.1 mls/hr Documented by: [id number] Cosigned by: [id number] Ioversol (Optiray 320 125ml) 125 ml IV ONCE PRN PRN Reason: Interaction Checking Stop: 09/25/18 22:31 Last Admin: 09/21/18 22:32 Dose: 119 ml Documented by: [id number] Midazolam HCl (Versed) 2 mg IV Q2H PRN PRN Reason: agitation/anxiety Stop: 10/21/18 22:57 Last Admin: 09/21/18 23:56 Dose: 1 mg Documented by: [id number] Admin: 09/21/18 23:49 Dose: 1 mg Documented by: [id number] Miscellaneous (Patient's Height And/Or Weight Needed) 1 ea N/A Q30M DAYSI Stop: 10/21/18 22:14 Last Admin: 09/21/18 23:08 Dose: 1 ea Documented by: [id number] Discontinued Medications Diphenhydramine HCl (Benadryl) 25 mg IV NOW STA Stop: 09/21/18 21:58 Last Admin: 09/21/18 22:05 Dose: 25 mg Documented by: [id number] Fentanyl Citrate (Fentanyl Citrate) 100 mcg IV NOW ONE Stop: 09/21/18 22:36 Last Admin: 09/21/18 22:39 Dose: 100 mcg Documented by: [id number] Fentanyl Citrate (Fentanyl Citrate) Confirm Administered Dose 100 mcg .ROUTE .STK-MED ONE Stop: 09/21/18 22:37 Last Admin: 09/21/18 22:40 Dose: Not Given Documented by: [id number] Famotidine (Pepcid 20mg Iv Push) 20 mg in 5 mls @ 2.5 mls/min IV NOW STA Stop: 09/21/18 21:58 Last Admin: 09/21/18 22:05 Dose: 2.5 mls/min Documented by: [id number] Sodium Chloride (Nss 1000ml) 1,000 mls @ 999 mls/hr IV .Q1H1M ONE Stop: 09/21/18 23:31 Last Infusion: 09/21/18 23:20 Dose: 0 mls/hr Documented by: [id number] Admin: 09/21/18 22:42 Dose: 999 mls/hr Documented by: [id number] Ceftriaxone Sodium 2,000 mg/ (Dextrose) 70 mls @ 100 mls/hr IV NOW STA Stop: 09/21/18 23:55 Last Admin: 09/21/18 23:27 Dose: 100 mls/hr Documented by: [id number] Methylprednisolone (Solumedrol) 125 mg IV NOW STA Stop: 09/21/18 21:58 Last Admin: 09/21/18 22:05 Dose: 125 mg Documented by: [id number] Midazolam HCl (Versed) 2 mg IV NOW STA Stop: 09/21/18 22:36 Last Admin: 09/21/18 22:42 Dose: 1 mg Documented by: [id number] Midazolam HCl (Versed) Confirm Administered Dose 2 mg .ROUTE .STK-MED ONE Stop: 09/21/18 22:38 Last Admin: 09/21/18 22:42 Dose: Not Given Documented by: [id number] Propofol (Diprivan) Confirm Administered Dose 1,000 mg IV .STK-MED ONE Stop: 09/21/18 21:58 Last Admin: 09/21/18 22:18 Dose: Not Given Documented by: [id number] Code Status & VTE Plan Code Status Per discussion with family at bedside, patient remains a full code. VTE Prophylaxis Plan VTE Prophylaxis will be ordered: Yes Critical Care Time Critical Care Time: Yes Total Critical Care Time: 50 Total critical care time was 50 minutes. Supervising Physician Co-Signing Physician Notes Attending addendum: I have physically seen this patient, have supervised the medical residents activities, and agree with the H&P unless as otherwise noted. Assessment and Plan: Status post cardiac arrest in the field/successful resuscitation/ROSC/therapeutic hypothermia protocol- Admitted to the intensive care unit. Received appropriate IV fluids, sedation, ventilator change of address clerk from bagging. Chest x-ray shows endotracheal tube in proper place. Empiric ceftriaxone 2 g IV given in ED. CT of head without acute event. CTA head neck Showing extensive plaque formation, but overall no significant stenoses. CTA chest shows no evidence of pulmonary embolism, does show mildly increase in size of infrarenal AAA at 3.9 x 3.6 cm, without rupture. Admit to ICU as noted, follow serial ABGs and adjust vent settings as appropriate. Acute kidney injury creatinine 1.87, to be followed with serial laboratories as rehydration with IV fluids continues. No other significant blood test abnormalities. Consult to Dr. Dela Cruz, lumber tallier, to continue ongoing care. Dr. Abdullahi Christine, historical guide, contacted while in ED, and felt no immediate intervention to be of value. Remainder of orders and notations as noted. PG Care Time/CCT Total # of Minutes Spent Total Time Spent with Patient: Total time spent is greater than 50% in coordination of care (as documented) at patient's floor/unit and/or counseling patient: Critical Care Time: Yes Total Critical Care Time: 50 Resident Activity Tracking Resident Involvement: Resident Care Provided Care Provided: Adult Hospital Medicine (1) AAA (abdominal aortic aneurysm) Presence of rupture: without rupture Qualified Code(s): I71.4 - Abdominal aortic aneurysm, without rupture (2) Aortic stenosis Cardiac valve disease etiology: etiology unspecified Qualified Code(s): I35.0 - Nonrheumatic aortic (valve) stenosis (3) HLD (hyperlipidemia) Hyperlipidemia type: pure hypercholesterolemia Qualified Code(s): E78.00 - Pure hypercholesterolemia, unspecified; E78.0 - Pure hypercholesterolemia
[2018-09-21] MEDS: MIDAZOLAM HCL 1 MG/ML 2ML VIAL IV PRN ×2 (23:49→23:56)
--- NOTE | 2018-09-22 00:19 | Critical Care Consultation ---
Date of Consultation Date of service is September 21, 2018, initially saw the patient in the emergency department at 2325 September 22, 2018 Assessment & Plan (1) Cardiac arrest: Reason Critically Ill: 82-year-old male who had return of spontaneous circulation after cardiac arrest and is in therapeutic hypothermia protocol PLAN: Neuro: Therapeutic hypothermia - EEG in Am Resp: Bilateral pleural effusions -Consented for thoracentesis Aspiration pneumonitis -Continuing Rocephin 1 g every 24 -Consented for bronchoscopy CV: Cardiac arrest of unclear etiology -Echo pending, trend troponins -No reported defibrillation Fluids/Renal: CKD stage III -Elevated creatinine at 1.87 on admission ID: Possible aspiration, blood cultures pending GI/Nutrition: Gallbladder wall thickening -Trend LFTs, may require right upper quadrant ultrasound in near future Heme: Anemia of chronic kidney disease -Type and screen pending, blood consent on chart DVT prophylaxis: Heparin infusion given cardiac arrest Endocrine: ICU hyperglycemia protocol Diabetes mellitus -Hemoglobin A1c pending Vascular access: Consent on chart for arterial line, central venous access, thoracentesis, bronchoscopy Code Status: Full code as confirmed by family at bedside I have personally spent 90 minutes of critical care time in the direct management of this patient. This is a life/limb threatening event. This includes time spent evaluating patient, direct bedside care, chart review, placing orders, interpretation of diagnostic studies, discussion with consultants, patient, and/or family members regarding treatment decisions, as well as other required patient management activities. This time is exclusive of all separately billable procedures, and teaching time and separate from and in addition to any other critical care service time. Present on Admission?: Yes (2) Controlled type 2 diabetes mellitus with kidney complication, with long-term current use of insulin: (3) Lower extremity edema: (4) Systolic and diastolic CHF, chronic: (5) Ischemic cardiomyopathy: (6) HLD (hyperlipidemia): (7) KAY (obstructive sleep apnea): (8) CKD (chronic kidney disease), stage III: (9) HTN (hypertension), benign: History of Present Illness Reason for Consultation: Cardiac arrest Requesting Physician: Cassandra Attending Physician: Cassandra History of Present Illness Patient is an 82-year-old male with known cardiac disease, first heart attack reportedly age 46 bypass in the at the [facility] who was in his normal state of health. This evening he stood up and attempted to the bathroom, the reports that he fell and called to her. The called the patient's son who in approximately 5 minutes or less presented in the living room and found their father not breathing. He started rescue breathing at that time, the initiated 911, a another provider showed up and started CPR. Per ED staff report there was no reported defibrillation in any point, he had return of spontaneous circulation after the second round of epinephrine. He was intubated by a prehospital providers. Per hospitalist service patient had a cardiac cath approximately last year which demonstrated cardiac disease that was unamenable to intervention, the emergency department contacted Dr. Christine who does not feel that the patient needs an emergent cardiac cath at this time. Hypothermia protocol was initiated in the emergency department as he did not have significant return to baseline mental status within 30 minutes of the inciting event. Allergies Allergy/AdvReac Type Severity Reaction Status Date / Time iodine Allergy Severe Unknown Verified 08/26/18 14:01 Penicillins Allergy Severe AMOXIL = Verified 08/26/18 14:01 ANAPHYLACTIC RXN clavulanic acid Allergy Unknown Unknown Verified 08/26/18 14:01 morphine AdvReac Mild VOMITING Verified 08/26/18 14:01 amoxicillin AdvReac Verified 08/26/18 14:01 Home Medications Home Medications Medication Instructions Recorded Confirmed Type atorvastatin 40 mg PO HS 02/01/18 09/21/18 History nitroglycerin [Nitrostat] 0.4 mg SUBLINGUAL DIRECTED PRN 02/01/18 09/21/18 History aspirin 81 mg PO DAILY 06/09/18 09/21/18 History cholecalciferol (vitamin D3) 1,000 unit PO DAILY 06/09/18 09/21/18 History [Vitamin D3] clopidogrel 75 mg PO DAILY 06/09/18 09/21/18 History cyanocobalamin (vitamin B-12) 1,000 mcg PO DAILY 06/09/18 09/21/18 History [Vitamin B-12] famotidine 20 mg PO BID 06/09/18 09/21/18 History pantoprazole 40 mg PO DAILY 06/09/18 09/21/18 History hydrocortisone [Proctosol HC] 1 applic EXT Q8H PRN #15 g 08/05/18 09/21/18 Rx ranolazine 1,000 mg PO BID #60 tab 08/05/18 09/21/18 Rx sennosides-docusate sodium 1 tab PO BID #60 tab 08/05/18 09/21/18 Rx [Senokot-S] lancets 33 gauge #100 ea 08/20/18 09/21/18 Rx diclofenac sodium [Voltaren] 0 g TOPICAL QID 09/21/18 09/21/18 History fludrocortisone 0.2 mg PO QAM 09/21/18 09/21/18 History furosemide 40 mg PO DAILY 09/21/18 09/21/18 History midodrine 5 mg PO TID 09/21/18 09/21/18 History Patient History Medical History Chronic combined systolic and diastolic heart failure Ischemic cardiomyopathy Surgical History H/O heart artery stent (Resolved) History of quadruple bypass (Resolved) Family History Other Family history non-contributory Social History Preferred Language: Yakut Communication Ability: Effective Beliefs That Will Affect Care: None marital status: Current Living Situation: Spouse Feels Safe at Home: Yes Smoking Status: Never smoker Second Hand Exposure: No Hx Alcohol Use: No Hx Substance Use: No Review of Systems Review of Systems: Unobtainable due to endotracheal tube Physical Exam Physical Exam: General: Well-developed elderly male I have reviewed the recorded vital signs Neurological: RASS score: -4, not withdrawing to painful stimuli (on propofol), Psychological: Glascow Coma Scale: Eyes: 1, Verbal 1T, Motor 1, Total 3T not f ollowing complex commands Eyes: Pupils are equal, round and reactive to light, anicteric sclera. Symmetrical lids. HENT: Oropharynx obscured by endotracheal tube, moist mucous membranes. Neck: Supple. Symmetric. trachea midline. No thyromegaly. Cardiovascular: Mildly decreased peripheral perfusion. Distal pulses and capillary refill intact. No JVD. Respiratory: Respirations are non-labored, no accessory muscle use. Breath sounds are equal. Gastrointestinal: Soft. Non-distended. Lymphatic: No cervical lymphadenopathy. Musculoskeletal: No deformity. No clubbing nor cyanosis., 2+ pitting edema Results & Data Vital Signs (Past 12 Hours) Vital Signs Temp Pulse Resp BP Pulse Ox 09/21/18 23:55 54 L 105/63 09/21/18 23:52 57 L 97 09/21/18 23:51 55 L 16 96 09/21/18 23:50 63 97/58 L 93 09/21/18 23:49 58 L 87/57 L 09/21/18 23:45 58 L 09/21/18 23:40 55 L 96 09/21/18 23:35 54 L 94 09/21/18 23:30 34.8 C L 56 L 89/54 L 91 09/21/18 23:25 55 L 87/55 L 90 09/21/18 23:22 35.0 C L 09/21/18 23:20 55 L 87/57 L 91 09/21/18 23:15 52 L 77/48 L 93 09/21/18 23:10 53 L 95 09/21/18 23:05 54 L 95 09/21/18 23:03 35.2 C L 09/21/18 23:00 55 L 72/46 L 94 09/21/18 22:55 58 L 84/50 L 94 09/21/18 22:50 58 L 77/48 L 98 09/21/18 22:45 64 72/45 L 100 09/21/18 22:43 35.6 C L 66 79/50 L 100 09/21/18 22:40 69 86/50 L 99 09/21/18 22:38 69 94/48 L 09/21/18 22:37 69 69/57 L 09/21/18 22:35 65 12 98 09/21/18 22:00 82 114/68 100 09/21/18 21:55 36.1 C L 09/21/18 21:53 83 22 100 09/21/18 21:46 36.1 C L 86 10 L 108/76 100 Laboratory Results 09/21/18 09/21/18 09/21/18 Range/Units 22:50 21:58 21:58 WBC (4.8-10.8) K/uL RBC (4.7-6.1) M/uL Hgb (14.0-18.0) g/dL POC Hgb (14.0-18.0) g/dl Hct (42-52) % POC Hct (42-52) % MCV (80-100) fL MCH (25-34) pg MCHC (32-36) g/dL RDW Std Deviation (36.4-46.3) fL RDW Coeff of Sandra (11.5-14.5) % Plt Count (130-400) K/uL MPV (7.4-10.4) fL Immature Gran % (Auto) % Neut % (Auto) % Lymph % (Auto) % [place] % (Auto) % Eos % (Auto) % Baso % (Auto) % Immature Gran # (Auto) (0.00-0.02) K/uL Neut # (Auto) (1.4-6.5) K/uL Lymph # (Auto) (1.2-3.4) K/uL [place] # (Auto) (0.11-0.59) K/uL Eos # (Auto) (0-0.5) K/uL Baso # (Auto) (0-0.2) K/uL PT (9.0-12.0) Seconds INR (0.9-1.1) APTT (21.0-31.0) Seconds PTT Ratio VBG pH 7.34 L (7.36-7.41) VBG pCO2 48 (38-50) mmHg VBG pO2 50 mmHg VBG HCO3 25 mmol/L VBG O2 Saturation 81.0 % VBG Base Excess -0.7 mEq/L Barometric Pressure 734.0 mm/Hg POC Sodium (135-144) mEq/L Sodium 140 (136-145) mmol/L POC Potassium (3.3-5.0) mEq/L Potassium 3.4 L (3.5-5.1) mmol/L POC Chloride (101-112) mEq/L Chloride 103 (98-107) mmol/L Carbon Dioxide 27 (21-32) mmol/L POC Total CO2 (24-31) mEq/l Anion Gap 10.0 (3-11) POC Anion Gap (16-25) mmol/L POC BUN (7-18) mg/dl BUN 21 H (7-18) mg/dl Creatinine 1.87 H (0.6-1.4) mg/dl POC Creatinine (0.6-1.3) mg/dl Est Cr Clr Drug Dosing 31.9 ml/min Est GFR ( Amer) 37.7 Est GFR (Non-Af Amer) 32.5 BUN/Creatinine Ratio 11.4 (10-20) Glucose 184 H (70-99) mg/dl POC Glucose (other) (70-99) mg/dl Lactate (0.4-2.0) mmol/L Calcium 8.6 (8.5-10.1) mg/dl POC Ioniz Calcium Marcie (1.12-1.32) mmol/l Magnesium 2.2 (1.8-2.4) mg/dl Total Bilirubin 1.4 H (0.2-1) mg/dl AST 17 (15-37) U/L ALT 13 (12-78) U/L Alkaline Phosphatase 95 (45-117) U/L Troponin I 0.031 (0-0.045) ng/ml Total Protein 6.1 L (6.4-8.2) gm/dl Albumin 3.0 L (3.4-5.0) gm/dl Globulin 3.1 (2.5-4.0) gm/dl Albumin/Globulin Ratio 1.0 (0.9-2) Procalcitonin (0-0.5) ng/ml Urine Color Yellow Urine Appearance Cloudy A (Clear) Urine pH 5.0 (4.5-7.5) Ur Specific [place] >= 1.030 (1.000-1.030) Urine Protein 3+ H (Negative) Urine Glucose (UA) Trace H (Negative) Urine Ketones Trace H (Negative) Urine Blood 3+ H (Negative) Urine Nitrite Negative (Negative) Urine Bilirubin 1+ H (Negative) Urine Urobilinogen Negative (Negative) Ur Leukocyte Esterase Negative (Negative) Urine RBC Not Reportable Urine WBC Not Reportable Ur Epithelial Cells Not Reportable Urine Bacteria Not Reportable 09/21/18 09/21/18 09/21/18 Range/Units 21:58 21:58 21:58 WBC 8.92 (4.8-10.8) K/uL RBC 3.38 L (4.7-6.1) M/uL Hgb 10.1 L (14.0-18.0) g/dL POC Hgb (14.0-18.0) g/dl Hct 31.1 L (42-52) % POC Hct (42-52) % MCV 92.0 (80-100) fL MCH 29.9 (25-34) pg MCHC 32.5 (32-36) g/dL RDW Std Deviation 55.0 H (36.4-46.3) fL RDW Coeff of Sandra 16.4 H (11.5-14.5) % Plt Count 251 (130-400) K/uL MPV 9.8 (7.4-10.4) fL Immature Gran % (Auto) 0.6 % Neut % (Auto) 39.6 % Lymph % (Auto) 49.8 % [place] % (Auto) 7.1 % Eos % (Auto) 2.7 % Baso % (Auto) 0.2 % Immature Gran # (Auto) 0.05 H (0.00-0.02) K/uL Neut # (Auto) 3.54 (1.4-6.5) K/uL Lymph # (Auto) 4.44 H (1.2-3.4) K/uL [place] # (Auto) 0.63 H (0.11-0.59) K/uL Eos # (Auto) 0.24 (0-0.5) K/uL Baso # (Auto) 0.02 (0-0.2) K/uL PT 12.4 H (9.0-12.0) Seconds INR 1.2 H (0.9-1.1) APTT 25.1 (21.0-31.0) Seconds PTT Ratio 0.9 VBG pH (7.36-7.41) VBG pCO2 (38-50) mmHg VBG pO2 mmHg VBG HCO3 mmol/L VBG O2 Saturation % VBG Base Excess mEq/L Barometric Pressure mm/Hg POC Sodium (135-144) mEq/L Sodium (136-145) mmol/L POC Potassium (3.3-5.0) mEq/L Potassium (3.5-5.1) mmol/L POC Chloride (101-112) mEq/L Chloride (98-107) mmol/L Carbon Dioxide (21-32) mmol/L POC Total CO2 (24-31) mEq/l Anion Gap (3-11) POC Anion Gap (16-25) mmol/L POC BUN (7-18) mg/dl BUN (7-18) mg/dl Creatinine (0.6-1.4) mg/dl POC Creatinine (0.6-1.3) mg/dl Est Cr Clr Drug Dosing ml/min Est GFR ( Amer) Est GFR (Non-Af Amer) BUN/Creatinine Ratio (10-20) Glucose (70-99) mg/dl POC Glucose (other) (70-99) mg/dl Lactate 4.0 H* (0.4-2.0) mmol/L Calcium (8.5-10.1) mg/dl POC Ioniz Calcium Marcie (1.12-1.32) mmol/l Magnesium (1.8-2.4) mg/dl Total Bilirubin (0.2-1) mg/dl AST (15-37) U/L ALT (12-78) U/L Alkaline Phosphatase (45-117) U/L Troponin I (0-0.045) ng/ml Total Protein (6.4-8.2) gm/dl Albumin (3.4-5.0) gm/dl Globulin (2.5-4.0) gm/dl Albumin/Globulin Ratio (0.9-2) Procalcitonin (0-0.5) ng/ml Urine Color Urine Appearance (Clear) Urine pH (4.5-7.5) Ur Specific [place] (1.000-1.030) Urine Protein (Negative) Urine Glucose (UA) (Negative) Urine Ketones (Negative) Urine Blood (Negative) Urine Nitrite (Negative) Urine Bilirubin (Negative) Urine Urobilinogen (Negative) Ur Leukocyte Esterase (Negative) Urine RBC Urine WBC Ur Epithelial Cells Urine Bacteria 09/21/18 09/21/18 Range/Units 21:58 21:51 WBC (4.8-10.8) K/uL RBC (4.7-6.1) M/uL Hgb (14.0-18.0) g/dL POC Hgb 10.2 L (14.0-18.0) g/dl Hct (42-52) % POC Hct 30 L (42-52) % MCV (80-100) fL MCH (25-34) pg MCHC (32-36) g/dL RDW Std Deviation (36.4-46.3) fL RDW Coeff of Sandra (11.5-14.5) % Plt Count (130-400) K/uL MPV (7.4-10.4) fL Immature Gran % (Auto) % Neut % (Auto) % Lymph % (Auto) % [place] % (Auto) % Eos % (Auto) % Baso % (Auto) % Immature Gran # (Auto) (0.00-0.02) K/uL Neut # (Auto) (1.4-6.5) K/uL Lymph # (Auto) (1.2-3.4) K/uL [place] # (Auto) (0.11-0.59) K/uL Eos # (Auto) (0-0.5) K/uL Baso # (Auto) (0-0.2) K/uL PT (9.0-12.0) Seconds INR (0.9-1.1) APTT (21.0-31.0) Seconds PTT Ratio VBG pH (7.36-7.41) VBG pCO2 (38-50) mmHg VBG pO2 mmHg VBG HCO3 mmol/L VBG O2 Saturation % VBG Base Excess mEq/L Barometric Pressure mm/Hg POC Sodium 140 (135-144) mEq/L Sodium (136-145) mmol/L POC Potassium 3.4 (3.3-5.0) mEq/L Potassium (3.5-5.1) mmol/L POC Chloride 99 L (101-112) mEq/L Chloride (98-107) mmol/L Carbon Dioxide (21-32) mmol/L POC Total CO2 25 (24-31) mEq/l Anion Gap (3-11) POC Anion Gap 20.0 (16-25) mmol/L POC BUN 22 H (7-18) mg/dl BUN (7-18) mg/dl Creatinine (0.6-1.4) mg/dl POC Creatinine 1.8 H (0.6-1.3) mg/dl Est Cr Clr Drug Dosing ml/min Est GFR ( Amer) Est GFR (Non-Af Amer) BUN/Creatinine Ratio (10-20) Glucose (70-99) mg/dl POC Glucose (other) 185 H (70-99) mg/dl Lactate (0.4-2.0) mmol/L Calcium (8.5-10.1) mg/dl POC Ioniz Calcium Marcie 1.12 (1.12-1.32) mmol/l Magnesium (1.8-2.4) mg/dl Total Bilirubin (0.2-1) mg/dl AST (15-37) U/L ALT (12-78) U/L Alkaline Phosphatase (45-117) U/L Troponin I (0-0.045) ng/ml Total Protein (6.4-8.2) gm/dl Albumin (3.4-5.0) gm/dl Globulin (2.5-4.0) gm/dl Albumin/Globulin Ratio (0.9-2) Procalcitonin < 0.05 (0-0.5) ng/ml Urine Color Urine Appearance (Clear) Urine pH (4.5-7.5) Ur Specific [place] (1.000-1.030) Urine Protein (Negative) Urine Glucose (UA) (Negative) Urine Ketones (Negative) Urine Blood (Negative) Urine Nitrite (Negative) Urine Bilirubin (Negative) Urine Urobilinogen (Negative) Ur Leukocyte Esterase (Negative) Urine RBC Urine WBC Ur Epithelial Cells Urine Bacteria Diagnostic Findings I have independently reviewed the CT scan noncontrast of the head, CTA of the chest, the CT of the abdomen pelvis I have also reviewed the radiology report of those images as well as the radiology report of the CT of the cervical spine. PG Care Time/CCT Critical Care Time: Yes Total Critical Care Time: 90 (1) HLD (hyperlipidemia) Hyperlipidemia type: pure hypercholesterolemia Qualified Code(s): E78.00 - Pure hypercholesterolemia, unspecified; E78.0 - Pure hypercholesterolemia (2) Controlled type 2 diabetes mellitus with kidney complication, with long-term current use of insulin Chronic kidney disease stage: stage 3 (moderate) Diabetes mellitus complication detail: with chronic kidney disease Qualified Code(s): E11.22 - Type 2 diabetes mellitus with diabetic chronic kidney disease; N18.3 - Chronic kidney disease, stage 3 (moderate); 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
[2018-09-22] MEDS ORDERED: cefTRIAXone SODIUM 1,000 MG in DEXTROSE 5% 50 ML IV SCH (00:30)
[2018-09-22] MEDS ORDERED: MIDAZOLAM HCL 125 MG/250 ML BAG IV PRN (00:46)
[2018-09-22] MEDS ORDERED: NOREPINEPHRINE BIT INJ 8 MG in DEXTROSE 5% 500 ML IV PRN (00:46)
[2018-09-22] MEDS ORDERED: fentaNYL DRIP 1,250 MCG/250 ML BAG IV PRN (00:46)
[2018-09-22] MEDS ORDERED: ARTIFICIAL TEARS OP OINT 3.5 GM TUBE OP PRN (00:46)
[2018-09-22] MEDS ORDERED: MEPERIDINE HCL 25 MG/ML CARP IV PRN (00:46)
[2018-09-22] MEDS ORDERED: ICU PROTOCOL FOR HYPERGLYCEMIA PRN (00:46)
[2018-09-22] MEDS ORDERED: MIDAZOLAM HCL 1 MG/ML 2ML VIAL ONE (00:48)
[2018-09-22] MEDS: Heparin IV Standard *NO* Bolus IV SCH ×2 (01:15→03:41)
[2018-09-22] MEDS: Heparin Adult STANDARD Wt-Based Dextrose 5% 25,000 units/500 mL IV SCH (01:24)
--- NOTE | 2018-09-22 01:25 | Procedure Note ---
Procedure Note Date of Service September 22, 2018 Procedure date: Noted above Procedure: Radial artery cannulation Pre-procedure Diagnosis: Need for invasive monitoring, hypotension/frequent blood draws Post-procedure Diagnosis: same as above Prior to Procedure: Informed Consent: The risks, benefits, indications, potential complications, and alternatives were explained to the the patient's and informed consent obtained. Attending Staff: Sonia Dela Cruz DO Skin Prep: Chlorhexidine Anesthesia: 3 mL 1% lidocaine without epinephrine The identity of the patient was confirmed and a bedside time out was performed. Description of Procedure: After sterile prep and sterile drape utilizing standard sterile technique the superficial skin of the left radial artery was anesthetized. The target artery was identified via dynamic ultrasound guidance and entered with a 20-gauge arrow Angiocath. Pulsatile bright red blood return was noted. Via modified Seldinger technique the self-contained guidewire was advanced and the Angiocath advanced over the guidewire. The guidewire was removed and brisk arterial blood return was noted. The pressure monitor was connected, and the arterial line was secured via silk suture. A sterile dressing was then applied. Complications: None Estimated blood loss: Trace Patient tolerated the procedure well. Procedure Date: September 22, 2018 Procedure: Procedural Ultrasound Indication: Arterial access for invasive monitoring Attending: Sonia Dela Cruz DO Artery visualized: Yes Pulsatility of artery: Yes Artery patent: Yes Line confirmed in artery with ultrasound: Yes Impression: Successful arterial cannulation Images obtained are saved for permanent record Coding CPT Codes Tubes, Drains, and Vasc Access - Tubes, Drains, and Vasc Access: Insertion Catheter, Artery ([id number]) Tubes, Drains, and Vasc Access - Tubes, Drains, and Vasc Access: Ultrasound Guidance For Vascular ([id number])
--- NOTE | 2018-09-22 01:27 | Procedure Note ---
Procedure Note Date of Service September 22, 2018 Procedure Date: Noted above Critical Care Medicine Point of Care Bedside Ultrasound Procedure: Limited Bedside Lung Ultrasound Indication: Cardiac arrest, bilateral pleural effusions Attending: Sonia Dela Cruz DO Resident/Physician Hospice Administrator: Jyotsna Organs Examined: Lung BLUE point (upper), BLUE point (lower), Phrenic Point (axillary), PLAPS point (posterior) A lines visualized: Present, Hemithorax: Bilaterally B lines visualized: Absent, Hemithorax: Bilaterally Lung Sliding: Present, Hemithorax: Bilateral Tissue-like Sign: Abs, Hemithorax: Bilateral Shred Sign: Absent, Hemithorax: Bilateral Quad Sign: Present, Hemithorax: Bilateral Sinusoid Sign: Present, Hemithorax: Bilateral Type of effusions: Simple, Hemithorax: Bilateral Interpleural distance: Less than half a centimeter, with inspiration long touches parietal pleura Impression: Simple appearing pleural effusions without adequate interpleural distance for safe thoracentesis Images obtained are saved for permanent record Coding
[2018-09-22] MEDS: PATIENT'S HEIGHT AND/OR WEIGHT NEEDED SCH ×3 (01:38→03:41)
[2018-09-22] MEDS ORDERED: Nursing to Pharmacy Communication ONE (01:39)
--- NOTE | 2018-09-22 01:48 | Procedure Note ---
Procedure Note: Bronchoscopy Procedure Procedure date: September 22, 2018 Procedure: fiberoptic bronchoscopy Pre-procedure indication: Hypoxia, status post cardiac arrest, infiltrates on CT scan Post-procedure Diagnosis: same as above Prior to Procedure: Informed Consent: The risks, benefits, indications, potential complications, and alternatives were explained to the patient's and informed consent obtained. Attending Staff: Sonia Dela Cruz DO Resident/APC: Jyotsna Skin Prep: Not applicable Anesthesia: 2 mg Versed IV The identity of the patient was confirmed and a bedside time out was performed. Description of Procedure: Fiberoptic bronchoscopy was performed via endotracheal tube. Bronchioalveolar lavage left lower lobe was performed. Findings included: Approximately 50% collapse of airways, excessive dynamic airway collapse., Positive aspiration down both lungs of bloody secretions, thin secretions without significant evidence of purulence., Endotracheal tube was retracted 2 cm in position via the bronchoscope. Complications: None Specimens: Bronchial washings sent for culture and Gram stain, cytology, fungal elements, and AFB stain and culture. Estimated blood loss: Zero
--- NOTE | 2018-09-22 01:56 | Procedure Note ---
Procedure Note Date of Service September 22, 2018 Central line placement Consent was obtained prior to procedure. Indication, risks, and benefits were explained at length. Procedure: Insertion of right IJ therapeutic hypothermia catheter Procedure was performed under strict sterile field in O.R. fashion. The right neck and chest were cleaned with chloroprep scrub and the patient was draped in sterile fashion. The internal jugular vein was identified using ultrasound. After anesthetizing the area with 5cc of lidocaine, venous blood was withdrawn after accessing the vein under ultrasound guidance. The syringe was removed and a guide wire was advanced into the introducer needle. The dilator was advanced after being exchanged for the introducer needle. After appropriate dilation was obtained, the dilator was removed and the central catheter was placed over the guide wire using Seldinger technique. The wire was removed intact and the catheter was sutured at 18 cm. A surgical dressing was placed over the catheter with a biofilm shield in place. At the time of the procedure each port was aspirated and then flushed properly. Pt tolerated the procedure well with no complications. Post procedure x-ray was completed, placement was appropriate and no pneumothorax was noted. Critical Care Medicine Point of Care Bedside Ultrasound Procedure: Procedural Ultrasound Procedure Date: September 22, 2018 Indication: Therapeutic hypothermia Attending: Sonia Dela Cruz DO Resident/Physician Herbologist: Caleb Goyal, PGY3 Organs Examined: Right IJV Objects visualized: Right IJV If for central venous access: Artery AND Vein visualized: Yes Compressible Vein: Yes Guidewire or Short Catheter seen in vein prior to dilation: Yes Line confirmed in Vein with ultrasound: Yes Lung Sliding on side of attempt (if applicable): N/a If no lung sliding or not obtained has CXR been ordered: Yes Impression: Placement of right IJ therapeutic catheter. Plan: Use of catheter. Complication: On first attempt the artery was accessed. This was recognized immediately, the needle was withdrawn and pressure was held for 5 minutes. On re-ultrasound, minimal hematoma was present. On second attempt, there was successful access of the internal jugular vein. No visible hematoma developed at the time of completion of the procedure without complication hence. Images obtained are saved for permanent record Supervising Physician Co-Signing Physician Notes I was present and assisted through the entire procedure. Coding CPT Codes Tubes, Drains, and Vasc Access - Tubes, Drains, and Vasc Access: Insertion Of Non-tunneled Catheter Age 4 Yrs> ([id number]) Tubes, Drains, and Vasc Access - Tubes, Drains, and Vasc Access: Ultrasound Guidance For Vascular ([id number]) Resident Activity Tracking Resident Involvement: Resident Care Provided Care Provided: Adult [facility] Medicine
[2018-09-22 03:30] LABS: Eosinophils # (auto) 0.04 K/uL (0-0.5); Eosinophils % (auto) 0.5 %; Hematocrit (blood only) 29.4 % (42-52); Hemoglobin 9.7 g/dL (14.0-18.0); Immature Granulocytes # (auto) 0.02 K/uL (0.00-0.02); Immature Granulocytes % (auto) 0.2 %; Lymphocytes # (auto) 0.76 K/uL (1.2-3.4); Mean Corpuscular Volume 90.7 fL (80-100); Monocytes # (auto) 0.43 K/uL (0.11-0.59); Monocytes % (auto) 5.1 %; Neutrophils # (auto) 7.17 K/uL (1.4-6.5); Neutrophils % (auto) 85.2 %; Platelet Count 233 K/uL (130-400); RDW Coefficient of Variation 16.2 % (11.5-14.5); RDW Standard Deviation 54.4 fL (36.4-46.3); Red Blood Count 3.24 M/uL (4.7-6.1); White Blood Count 8.42 K/uL (4.8-10.8)
[2018-09-22 03:33] LABS: INR 1.4 (0.9-1.1); Partial Thromboplastin Ratio 2.3; Prothrombin Time 13.8 Seconds (9.0-12.0)
[2018-09-22 03:42] LABS: BUN Creatinine Ratio 12.2 (10-20); Creatinine Clr Calc Pharmacy 34.4 ml/min; Est GFR (African American) 37.9; Est GFR (Non-African American) 32.7; Magnesium 2.2 mg/dl (1.8-2.4); Partial Thromboplastin Time 61.4 Seconds (21.0-31.0); Phosphorus 3.1 mg/dl (2.5-4.9); Potassium 3.6 mmol/L (3.5-5.1)
[2018-09-22 04:10] LABS: iSTAT Arterial Blood Gas HCO3 26 meg/L (19-24); iSTAT Arterial Blood Gas pCO2 53 mmHg (35-46); iSTAT Carbon Dioxide 28 mEq/l (24-31); iSTAT Site Art Line
[2018-09-22 06:19] LABS: Estimated Average Glucose 120 mg/dl; Hemoglobin A1C 5.8 % (4.5-5.6)
--- NOTE | 2018-09-22 07:13 | XRay Report ---
XR chest 1V portable HISTORY: Evaluate support lines COMPARISON: Chest 09/21/2017. FINDINGS: The endotracheal tube terminates approximately 2 cm from the todd. Nasogastric tube is cu rled within the proximal stomach. Right jugular catheter terminates at the expected location of the S VC. The heart remains enlarged. Small bilateral pleural effusions persist. Slight improvement in the mild pulmonary edema and left basilar densities. Poststernotomy changes. IMPRESSION: 1. Satisfactory support line placement. 2. Slight improvement in the mild pulmonary edema and left basilar densities. 3. Small bilateral pleural effusions, unchanged. Electronically signed by: Michael Chadwick M.D. 09/22/2018 7:12 AM
[2018-09-22 07:32] LABS: Basophils # (auto) 0.01 K/uL (0-0.2); Basophils % (auto) 0.1 %; Eosinophils # (auto) 0.02 K/uL (0-0.5); Eosinophils % (auto) 0.3 %; Hematocrit (blood only) 28.9 % (42-52); Hemoglobin 9.5 g/dL (14.0-18.0); Immature Granulocytes # (auto) 0.01 K/uL (0.00-0.02); Immature Granulocytes % (auto) 0.1 %; Lymphocytes # (auto) 0.72 K/uL (1.2-3.4); Lymphocytes % (auto) 9.7 %; Mean Corpuscular Hgb Conc 32.9 g/dL (32-36); Mean Corpuscular Volume 90.6 fL (80-100); Mean Platelet Volume 9.7 fL (7.4-10.4); Monocytes # (auto) 0.28 K/uL (0.11-0.59); Monocytes % (auto) 3.8 %; Neutrophils # (auto) 6.36 K/uL (1.4-6.5); Platelet Count 218 K/uL (130-400); RDW Coefficient of Variation 16.2 % (11.5-14.5); RDW Standard Deviation 54.3 fL (36.4-46.3); Red Blood Count 3.19 M/uL (4.7-6.1)
--- NOTE | 2018-09-22 07:57 | Critical Care Progress Note ---
Date of Service September 22, 2018 Assessment & Plan (1) Admitted to intensive care unit: Reason Critically Ill: ROSC after cardiac arrest and currently in therapeutic hypothermia protocol. PLAN: NEURO -Therapeutic hypothermia -Anoxic encephalopathy following cardiac arrest -No evidence of seizure activity on EEG -Neuro: suspect a poor prognosis for recovery given length of time of arrest, age, and medical comorbidities PULM -Bilateral pleural effusions- consented for thoracentesis -Aspiration pneumonitis- s/p bronch. Cx pending. Cont Rocephin 1 g every 24 -KAY CARDIO -Cause of cardiac arrest unclear. History of severe CAD with multiple admissions this year with troponin elevations. Cardiac cath in July without ability to intervene. Trops negative. ECHO pending. -HTN- off pressor support now. Holding home meds -Adding Brilinta 2/2 hypothermia and h/o Plavix use -CAD- Cont atorvastatin Fluids/Renal: -CKD stage III- Elevated creatinine at 1.86 on admission. Cont trend -Normosol at 50 ID: -Possible aspiration, blood cultures pending. Awaiting bronch results to d/c antibiotics empirically after 48 hrs GI/Nutrition: -CT Abd: Gallbladder wall thickening -Normal LFT's. Will cont trend, may require RUQ U/S in near future -Holding off on feeds until re-warming phase HEME -Anemia of chronic kidney disease -Stable H/H. No concerns for acute bleeding. Cont trend ENDO -A1C 5.8 -ICU hyperglycemia protocol. Elevated BSG likely 2/2 stress LINES: A-line, R IJ Central venous access, PIV x3 DVT prophylaxis: Heparin Full Code DISPO: ICU Supervising Physician Co-Signing Physician Notes Dr. Bloom was resident physician during care of patient. I separately evaluated patient for weber portions of the history and the exam. I was present during the critical portion of medical decision making, and I discussed the case with the resident. I generally agree with the findings and plan. Patient was discussed in multidisciplinary rounds, I also discussed with cardiology service. Adding Brilinta secondary to hypothermia and history of Plavix use. Reach goal temp at [phone] Awaiting bronchoscopy results will discontinue antibiotics empirically at 48 hours unless other concerns arise Echo completed, awaiting formal report, formal cardiology consult Starting Normosol fluids at 50 mils per hour Starting Peptamen at 10 mL's per hour trickle continuous Mildly elevated blood sugars likely stress response will continue to trend I have personally spent 40 minutes of critical care time in the direct management of this patient. This is a life/limb threatening event. This includes time spent evaluating patient, direct bedside care, chart review, placing orders, interpretation of diagnostic studies, discussion with consultants, patient, and/or family members regarding treatment decisions, as well as other required patient management activities. This time is exclusive of all separately billable procedures, and teaching time and separate from and in addition to any other critical care service time. Subjective Intubated and sedated on hypothermia protocol. Review of Systems Review of Systems: Unobtainable due to endotracheal tube Physical Exam Constitutional: WD/WN, vitals as above on [facility] vent ENMT: external ear and nose normal, oropharynx normal Respiratory: normal respiratory effort, lungs clear to auscultation Cardiovascular: RRR, no murmur, no edema Gastrointestinal (Abdomen): normal bowel sounds, soft, nontender, no hepatosplenomegaly Skin: no rashes, warm and dry Psychiatric: unable to assess Results & Data Vital Signs (Past 12 Hours) Vital Signs Temp Temp Temp Pulse Pulse Resp BP 09/22/18 07:22 79 16 09/22/18 07:00 32 C L 32 C L 45 L 16 09/22/18 06:00 32.2 C L 32.1 C L 48 L 16 09/22/18 05:30 09/22/18 05:03 112 H 16 09/22/18 05:00 32 C L 32 C L 56 L 16 09/22/18 04:00 32.4 C L 32.7 C L 54 L 17 09/22/18 03:00 33.1 C L 34.1 C L 51 L 18 09/22/18 02:00 34.4 C L 51 L 16 09/22/18 01:50 54 L 16 09/22/18 01:00 34.7 C L 56 L 16 09/22/18 00:30 34.7 C L 60 16 09/22/18 00:12 34.7 C L 09/22/18 00:05 53 L 09/22/18 00:00 54 L 95/55 L 09/21/18 23:58 55 L 97/61 L 09/21/18 23:55 54 L 105/63 09/21/18 23:52 57 L 09/21/18 23:51 55 L 16 09/21/18 23:50 63 97/58 L 09/21/18 23:49 58 L 87/57 L 09/21/18 23:45 58 L 09/21/18 23:40 55 L 09/21/18 23:35 54 L 09/21/18 23:30 34.8 C L 56 L 89/54 L 09/21/18 23:25 55 L 87/55 L 09/21/18 23:22 35.0 C L 09/21/18 23:20 55 L 87/57 L 09/21/18 23:15 52 L 77/48 L 09/21/18 23:10 53 L 09/21/18 23:05 54 L 09/21/18 23:03 35.2 C L 09/21/18 23:00 55 L 72/46 L 09/21/18 22:55 58 L 84/50 L 09/21/18 22:50 58 L 77/48 L 09/21/18 22:45 64 72/45 L 09/21/18 22:43 35.6 C L 66 79/50 L 09/21/18 22:40 69 86/50 L 09/21/18 22:38 69 94/48 L 09/21/18 22:37 69 69/57 L 09/21/18 22:35 65 12 09/21/18 22:00 82 114/68 09/21/18 21:55 36.1 C L 09/21/18 21:53 83 22 09/21/18 21:46 36.1 C L 86 10 L 108/76 BP BP Pulse Ox 09/22/18 07:22 96 09/22/18 07:00 118/59 L 103/52 L 100 09/22/18 06:00 109/54 L 109/63 100 09/22/18 05:30 105/53 L 110/61 09/22/18 05:03 96 09/22/18 05:00 95/48 L 76/58 L 100 09/22/18 04:00 93/47 L 97/62 L 100 09/22/18 03:00 104/51 L 98/45 L 100 09/22/18 02:00 104/63 100 09/22/18 01:50 97 09/22/18 01:00 107/68 100 09/22/18 00:30 100/59 L 98 09/22/18 00:12 09/22/18 00:05 97 09/22/18 00:00 09/21/18 23:58 93 09/21/18 23:55 09/21/18 23:52 97 09/21/18 23:51 96 09/21/18 23:50 93 09/21/18 23:49 09/21/18 23:45 09/21/18 23:40 96 09/21/18 23:35 94 09/21/18 23:30 91 09/21/18 23:25 90 09/21/18 23:22 09/21/18 23:20 91 09/21/18 23:15 93 09/21/18 23:10 95 09/21/18 23:05 95 09/21/18 23:03 09/21/18 23:00 94 09/21/18 22:55 94 09/21/18 22:50 98 09/21/18 22:45 100 09/21/18 22:43 100 09/21/18 22:40 99 09/21/18 22:38 09/21/18 22:37 09/21/18 22:35 98 09/21/18 22:00 100 09/21/18 21:55 09/21/18 21:53 100 09/21/18 21:46 100 Laboratory Results Laboratory Results - last 24 hr 09/21/18 09/21/18 09/21/18 21:51 21:58 21:58 WBC 8.92 RBC 3.38 L Hgb 10.1 L POC Hgb 10.2 L Hct 31.1 L POC Hct 30 L MCV 92.0 MCH 29.9 MCHC 32.5 RDW Std Deviation 55.0 H RDW Coeff of Sandra 16.4 H Plt Count 251 MPV 9.8 Immature Gran % (Auto) 0.6 Neut % (Auto) 39.6 Lymph % (Auto) 49.8 [place] % (Auto) 7.1 Eos % (Auto) 2.7 Baso % (Auto) 0.2 Immature Gran # (Auto) 0.05 H Neut # (Auto) 3.54 Lymph # (Auto) 4.44 H [place] # (Auto) 0.63 H Eos # (Auto) 0.24 Baso # (Auto) 0.02 PT INR APTT PTT Ratio Sample Site POC pH POC pCO2 POC pO2 POC HCO3 POC Base Excess POC ABG O2 Sat Gunner Test VBG pH VBG pCO2 VBG pO2 VBG HCO3 VBG O2 Saturation VBG Base Excess Barometric Pressure O2 Delivery Device POC O2 Rate Minute Ventilation POC FiO2 Tidal Volume PEEP POC Sodium 140 Sodium POC Potassium 3.4 Potassium POC Chloride 99 L Chloride Carbon Dioxide POC Total CO2 25 Anion Gap POC Anion Gap 20.0 POC BUN 22 H BUN Creatinine POC Creatinine 1.8 H Est Cr Clr Drug Dosing Est GFR ( Amer) Est GFR (Non-Af Amer) BUN/Creatinine Ratio Glucose POC Glucose (other) 185 H Estimat Average Glucose Hemoglobin A1c Lactate Calcium POC Ioniz Calcium Marcie 1.12 Phosphorus Magnesium Total Bilirubin GGT AST ALT Alkaline Phosphatase Lactate Dehydrogenase Troponin I Total Protein Albumin Globulin Albumin/Globulin Ratio Procalcitonin < 0.05 Specimen Hemolysis Urine Color Urine Appearance Urine pH Ur Specific [place] Urine Protein Urine Glucose (UA) Urine Ketones Urine Blood Urine Nitrite Urine Bilirubin Urine Urobilinogen Ur Leukocyte Esterase Urine RBC Urine WBC Ur Epithelial Cells Urine Bacteria Nasal Screen MRSA (PCR) Blood Type Antibody Screen 09/21/18 09/21/18 09/21/18 21:58 21:58 21:58 WBC RBC Hgb POC Hgb Hct POC Hct MCV MCH MCHC RDW Std Deviation RDW Coeff of Sandra Plt Count MPV Immature Gran % (Auto) Neut % (Auto) Lymph % (Auto) [place] % (Auto) Eos % (Auto) Baso % (Auto) Immature Gran # (Auto) Neut # (Auto) Lymph # (Auto) [place] # (Auto) Eos # (Auto) Baso # (Auto) PT 12.4 H INR 1.2 H APTT 25.1 PTT Ratio 0.9 Sample Site POC pH POC pCO2 POC pO2 POC HCO3 POC Base Excess POC ABG O2 Sat Gunner Test VBG pH VBG pCO2 VBG pO2 VBG HCO3 VBG O2 Saturation VBG Base Excess Barometric Pressure O2 Delivery Device POC O2 Rate Minute Ventilation POC FiO2 Tidal Volume PEEP POC Sodium Sodium 140 POC Potassium Potassium 3.4 L POC Chloride Chloride 103 Carbon Dioxide 27 POC Total CO2 Anion Gap 10.0 POC Anion Gap POC BUN BUN 21 H Creatinine 1.87 H POC Creatinine Est Cr Clr Drug Dosing 31.9 Est GFR ( Amer) 37.7 Est GFR (Non-Af Amer) 32.5 BUN/Creatinine Ratio 11.4 Glucose 184 H POC Glucose (other) Estimat Average Glucose Hemoglobin A1c Lactate 4.0 H* Calcium 8.6 POC Ioniz Calcium Marcie Phosphorus Magnesium 2.2 Total Bilirubin 1.4 H GGT AST 17 ALT 13 Alkaline Phosphatase 95 Lactate Dehydrogenase Troponin I 0.031 Total Protein 6.1 L Albumin 3.0 L Globulin 3.1 Albumin/Globulin Ratio 1.0 Procalcitonin Specimen Hemolysis Urine Color Urine Appearance Urine pH Ur Specific [place] Urine Protein Urine Glucose (UA) Urine Ketones Urine Blood Urine Nitrite Urine Bilirubin Urine Urobilinogen Ur Leukocyte Esterase Urine RBC Urine WBC Ur Epithelial Cells Urine Bacteria Nasal Screen MRSA (PCR) Blood Type Antibody Screen 09/21/18 09/21/18 09/22/18 21:58 22:50 01:15 WBC RBC Hgb POC Hgb Hct POC Hct MCV MCH MCHC RDW Std Deviation RDW Coeff of Sandra Plt Count MPV Immature Gran % (Auto) Neut % (Auto) Lymph % (Auto) [place] % (Auto) Eos % (Auto) Baso % (Auto) Immature Gran # (Auto) Neut # (Auto) Lymph # (Auto) [place] # (Auto) Eos # (Auto) Baso # (Auto) PT INR APTT PTT Ratio Sample Site POC pH POC pCO2 POC pO2 POC HCO3 POC Base Excess POC ABG O2 Sat Gunner Test VBG pH 7.34 L VBG pCO2 48 VBG pO2 50 VBG HCO3 25 VBG O2 Saturation 81.0 VBG Base Excess -0.7 Barometric Pressure 734.0 O2 Delivery Device POC O2 Rate Minute Ventilation POC FiO2 Tidal Volume PEEP POC Sodium Sodium POC Potassium Potassium POC Chloride Chloride Carbon Dioxide POC Total CO2 Anion Gap POC Anion Gap POC BUN BUN Creatinine POC Creatinine Est Cr Clr Drug Dosing Est GFR ( Amer) Est GFR (Non-Af Amer) BUN/Creatinine Ratio Glucose POC Glucose (other) Estimat Average Glucose Hemoglobin A1c Lactate Calcium POC Ioniz Calcium Marcie Phosphorus Magnesium Total Bilirubin GGT AST ALT Alkaline Phosphatase Lactate Dehydrogenase Troponin I Total Protein Albumin Globulin Albumin/Globulin Ratio Procalcitonin Specimen Hemolysis Urine Color Yellow Urine Appearance Cloudy A Urine pH 5.0 Ur Specific [place] >= 1.030 Urine Protein 3+ H Urine Glucose (UA) Trace H Urine Ketones Trace H Urine Blood 3+ H Urine Nitrite Negative Urine Bilirubin 1+ H Urine Urobilinogen Negative Ur Leukocyte Esterase Negative Urine RBC Not Reportable Urine WBC Not Reportable Ur Epithelial Cells Not Reportable Urine Bacteria Not Reportable Nasal Screen MRSA (PCR) Negative Blood Type Antibody Screen 09/22/18 09/22/18 09/22/18 02:59 02:59 02:59 WBC RBC Hgb POC Hgb Hct POC Hct MCV MCH MCHC RDW Std Deviation RDW Coeff of Sandra Plt Count MPV Immature Gran % (Auto) Neut % (Auto) Lymph % (Auto) [place] % (Auto) Eos % (Auto) Baso % (Auto) Immature Gran # (Auto) Neut # (Auto) Lymph # (Auto) [place] # (Auto) Eos # (Auto) Baso # (Auto) PT INR APTT PTT Ratio Sample Site POC pH POC pCO2 POC pO2 POC HCO3 POC Base Excess POC ABG O2 Sat Gunner Test VBG pH VBG pCO2 VBG pO2 VBG HCO3 VBG O2 Saturation VBG Base Excess Barometric Pressure O2 Delivery Device POC O2 Rate Minute Ventilation POC FiO2 Tidal Volume PEEP POC Sodium Sodium 139 POC Potassium Potassium 3.6 POC Chloride Chloride 104 Carbon Dioxide 26 POC Total CO2 Anion Gap 9.0 POC Anion Gap POC BUN BUN 23 H Creatinine 1.86 H POC Creatinine Est Cr Clr Drug Dosing 34.4 Est GFR ( Amer) 37.9 Est GFR (Non-Af Amer) 32.7 BUN/Creatinine Ratio 12.2 Glucose 163 H POC Glucose (other) Estimat Average Glucose Hemoglobin A1c Lactate Calcium 8.0 L POC Ioniz Calcium Marcie Phosphorus 3.1 Magnesium 2.2 Total Bilirubin GGT AST ALT Alkaline Phosphatase Lactate Dehydrogenase 176 Troponin I 0.032 Total Protein Albumin Globulin Albumin/Globulin Ratio Procalcitonin Specimen Hemolysis Urine Color Urine Appearance Urine pH Ur Specific [place] Urine Protein Urine Glucose (UA) Urine Ketones Urine Blood Urine Nitrite Urine Bilirubin Urine Urobilinogen Ur Leukocyte Esterase Urine RBC Urine WBC Ur Epithelial Cells Urine Bacteria Nasal Screen MRSA (PCR) Blood Type Antibody Screen 09/22/18 09/22/18 09/22/18 02:59 02:59 02:59 WBC RBC Hgb POC Hgb Hct POC Hct MCV MCH MCHC RDW Std Deviation RDW Coeff of Sandra Plt Count MPV Immature Gran % (Auto) Neut % (Auto) Lymph % (Auto) [place] % (Auto) Eos % (Auto) Baso % (Auto) Immature Gran # (Auto) Neut # (Auto) Lymph # (Auto) [place] # (Auto) Eos # (Auto) Baso # (Auto) PT INR APTT PTT Ratio Sample Site POC pH POC pCO2 POC pO2 POC HCO3 POC Base Excess POC ABG O2 Sat Gunner Test VBG pH VBG pCO2 VBG pO2 VBG HCO3 VBG O2 Saturation VBG Base Excess Barometric Pressure O2 Delivery Device POC O2 Rate Minute Ventilation POC FiO2 Tidal Volume PEEP POC Sodium Sodium POC Potassium Potassium POC Chloride Chloride Carbon Dioxide POC Total CO2 Anion Gap POC Anion Gap POC BUN BUN Creatinine POC Creatinine Est Cr Clr Drug Dosing Est GFR ( Amer) Est GFR (Non-Af Amer) BUN/Creatinine Ratio Glucose POC Glucose (other) Estimat Average Glucose 120 Hemoglobin A1c 5.8 H Lactate Calcium POC Ioniz Calcium Marcie Phosphorus Magnesium Total Bilirubin GGT Pending AST ALT Alkaline Phosphatase Lactate Dehydrogenase Troponin I Total Protein Albumin Globulin Albumin/Globulin Ratio Procalcitonin Specimen Hemolysis Urine Color Urine Appearance Urine pH Ur Specific [place] Urine Protein Urine Glucose (UA) Urine Ketones Urine Blood Urine Nitrite Urine Bilirubin Urine Urobilinogen Ur Leukocyte Esterase Urine RBC Urine WBC Ur Epithelial Cells Urine Bacteria Nasal Screen MRSA (PCR) Blood Type AB Negative Antibody Screen NEGATIVE 09/22/18 09/22/18 09/22/18 02:59 02:59 03:56 WBC 8.42 RBC 3.24 L Hgb 9.7 L POC Hgb Hct 29.4 L POC Hct MCV 90.7 MCH 29.9 MCHC 33.0 RDW Std Deviation 54.4 H RDW Coeff of Sandra 16.2 H Plt Count 233 MPV 10.0 Immature Gran % (Auto) 0.2 Neut % (Auto) 85.2 Lymph % (Auto) 9.0 [place] % (Auto) 5.1 Eos % (Auto) 0.5 Baso % (Auto) 0.0 Immature Gran # (Auto) 0.02 Neut # (Auto) 7.17 H Lymph # (Auto) 0.76 L [place] # (Auto) 0.43 Eos # (Auto) 0.04 Baso # (Auto) 0.00 PT 13.8 H INR 1.4 H APTT 61.4 H* PTT Ratio 2.3 Sample Site Art Line POC pH 7.30 L POC pCO2 53 H POC pO2 291 H POC HCO3 26 H POC Base Excess 0.0 POC ABG O2 Sat 100.0 H Gunner Test NA VBG pH VBG pCO2 VBG pO2 VBG HCO3 VBG O2 Saturation VBG Base Excess Barometric Pressure O2 Delivery Device Ventilator POC O2 Rate 16 Minute Ventilation 8.1 POC FiO2 Tidal Volume 450 PEEP 8 POC Sodium Sodium POC Potassium Potassium POC Chloride Chloride Carbon Dioxide POC Total CO2 28 Anion Gap POC Anion Gap POC BUN BUN Creatinine POC Creatinine Est Cr Clr Drug Dosing Est GFR ( Amer) Est GFR (Non-Af Amer) BUN/Creatinine Ratio Glucose POC Glucose (other) Estimat Average Glucose Hemoglobin A1c Lactate Calcium POC Ioniz Calcium Marcie Phosphorus Magnesium Total Bilirubin GGT AST ALT Alkaline Phosphatase Lactate Dehydrogenase Troponin I Total Protein Albumin Globulin Albumin/Globulin Ratio Procalcitonin Specimen Hemolysis Urine Color Urine Appearance Urine pH Ur Specific [place] Urine Protein Urine Glucose (UA) Urine Ketones Urine Blood Urine Nitrite Urine Bilirubin Urine Urobilinogen Ur Leukocyte Esterase Urine RBC Urine WBC Ur Epithelial Cells Urine Bacteria Nasal Screen MRSA (PCR) Blood Type Antibody Screen 09/22/18 09/22/18 09/22/18 05:56 07:20 07:20 WBC 7.40 RBC 3.19 L Hgb 9.5 L POC Hgb Hct 28.9 L POC Hct MCV 90.6 MCH 29.8 MCHC 32.9 RDW Std Deviation 54.3 H RDW Coeff of Sandra 16.2 H Plt Count 218 MPV 9.7 Immature Gran % (Auto) 0.1 Neut % (Auto) 86.0 Lymph % (Auto) 9.7 [place] % (Auto) 3.8 Eos % (Auto) 0.3 Baso % (Auto) 0.1 Immature Gran # (Auto) 0.01 Neut # (Auto) 6.36 Lymph # (Auto) 0.72 L [place] # (Auto) 0.28 Eos # (Auto) 0.02 Baso # (Auto) 0.01 PT 13.8 H INR 1.4 H APTT Cancelled PTT Ratio Cancelled Sample Site POC pH POC pCO2 POC pO2 POC HCO3 POC Base Excess POC ABG O2 Sat Gunner Test VBG pH VBG pCO2 VBG pO2 VBG HCO3 VBG O2 Saturation VBG Base Excess Barometric Pressure O2 Delivery Device POC O2 Rate Minute Ventilation POC FiO2 Tidal Volume PEEP POC Sodium Sodium POC Potassium Potassium POC Chloride Chloride Carbon Dioxide POC Total CO2 Anion Gap POC Anion Gap POC BUN BUN Creatinine POC Creatinine Est Cr Clr Drug Dosing Est GFR ( Amer) Est GFR (Non-Af Amer) BUN/Creatinine Ratio Glucose POC Glucose (other) 205 H Estimat Average Glucose Hemoglobin A1c Lactate Calcium POC Ioniz Calcium Marcie Phosphorus Magnesium Total Bilirubin GGT AST ALT Alkaline Phosphatase Lactate Dehydrogenase Troponin I Total Protein Albumin Globulin Albumin/Globulin Ratio Procalcitonin Specimen Hemolysis Urine Color Urine Appearance Urine pH Ur Specific [place] Urine Protein Urine Glucose (UA) Urine Ketones Urine Blood Urine Nitrite Urine Bilirubin Urine Urobilinogen Ur Leukocyte Esterase Urine RBC Urine WBC Ur Epithelial Cells Urine Bacteria Nasal Screen MRSA (PCR) Blood Type Antibody Screen 09/22/18 09/22/18 09/22/18 08:03 08:54 08:54 WBC RBC Hgb POC Hgb Hct POC Hct MCV MCH MCHC RDW Std Deviation RDW Coeff of Sandra Plt Count MPV Immature Gran % (Auto) Neut % (Auto) Lymph % (Auto) [place] % (Auto) Eos % (Auto) Baso % (Auto) Immature Gran # (Auto) Neut # (Auto) Lymph # (Auto) [place] # (Auto) Eos # (Auto) Baso # (Auto) PT INR APTT > 139.0 H* PTT Ratio > 5.1 Sample Site Art Line POC pH 7.41 POC pCO2 35 POC pO2 132 H POC HCO3 22 POC Base Excess -3.0 POC ABG O2 Sat 99.0 H Gunner Test NA VBG pH VBG pCO2 VBG pO2 VBG HCO3 VBG O2 Saturation VBG Base Excess Barometric Pressure O2 Delivery Device Ventilator POC O2 Rate 16 Minute Ventilation 6.4 POC FiO2 50 Tidal Volume 450 PEEP 8 POC Sodium Sodium 139 POC Potassium Potassium 3.5 POC Chloride Chloride 105 Carbon Dioxide 25 POC Total CO2 23 L Anion Gap 9.0 POC Anion Gap POC BUN BUN 23 H Creatinine 1.81 H POC Creatinine Est Cr Clr Drug Dosing 35.3 Est GFR ( Amer) 39.2 Est GFR (Non-Af Amer) 33.8 BUN/Creatinine Ratio 12.8 Glucose 177 H POC Glucose (other) Estimat Average Glucose Hemoglobin A1c Lactate Calcium 8.3 L POC Ioniz Calcium Marcie Phosphorus 3.1 Magnesium 2.2 Total Bilirubin GGT AST ALT Alkaline Phosphatase Lactate Dehydrogenase Troponin I 0.031 Total Protein Albumin Globulin Albumin/Globulin Ratio Procalcitonin Specimen Hemolysis Urine Color Urine Appearance Urine pH Ur Specific [place] Urine Protein Urine Glucose (UA) Urine Ketones Urine Blood Urine Nitrite Urine Bilirubin Urine Urobilinogen Ur Leukocyte Esterase Urine RBC Urine WBC Ur Epithelial Cells Urine Bacteria Nasal Screen MRSA (PCR) Blood Type Antibody Screen 09/22/18 09/22/18 09/22/18 10:51 10:51 10:51 WBC 6.34 RBC 3.14 L Hgb 9.5 L POC Hgb Hct 28.3 L POC Hct MCV 90.1 MCH 30.3 MCHC 33.6 RDW Std Deviation 54.2 H RDW Coeff of Sandra 16.4 H Plt Count 202 MPV 9.3 Immature Gran % (Auto) 0.2 Neut % (Auto) 84.3 Lymph % (Auto) 11.8 [place] % (Auto) 3.5 Eos % (Auto) 0.2 Baso % (Auto) 0.0 Immature Gran # (Auto) 0.01 Neut # (Auto) 5.35 Lymph # (Auto) 0.75 L [place] # (Auto) 0.22 Eos # (Auto) 0.01 Baso # (Auto) 0.00 PT 13.7 H INR 1.4 H APTT > 139.0 H* PTT Ratio > 5.1 Sample Site POC pH POC pCO2 POC pO2 POC HCO3 POC Base Excess POC ABG O2 Sat Gunner Test VBG pH VBG pCO2 VBG pO2 VBG HCO3 VBG O2 Saturation VBG Base Excess Barometric Pressure O2 Delivery Device POC O2 Rate Minute Ventilation POC FiO2 Tidal Volume PEEP POC Sodium Sodium 138 POC Potassium Potassium 3.7 POC Chloride Chloride 104 Carbon Dioxide 27 POC Total CO2 Anion Gap 7.0 POC Anion Gap POC BUN BUN 27 H Creatinine 1.86 H POC Creatinine Est Cr Clr Drug Dosing 34.4 Est GFR ( Amer) 37.9 Est GFR (Non-Af Amer) 32.7 BUN/Creatinine Ratio 14.3 Glucose 183 H POC Glucose (other) Estimat Average Glucose Hemoglobin A1c Lactate Calcium 8.4 L POC Ioniz Calcium Marcie Phosphorus 2.9 Magnesium 2.2 Total Bilirubin GGT AST ALT Alkaline Phosphatase Lactate Dehydrogenase Troponin I Total Protein Albumin Globulin Albumin/Globulin Ratio Procalcitonin Specimen Hemolysis Urine Color Urine Appearance Urine pH Ur Specific [place] Urine Protein Urine Glucose (UA) Urine Ketones Urine Blood Urine Nitrite Urine Bilirubin Urine Urobilinogen Ur Leukocyte Esterase Urine RBC Urine WBC Ur Epithelial Cells Urine Bacteria Nasal Screen MRSA (PCR) Blood Type Antibody Screen 09/22/18 09/22/18 09/22/18 12:21 12:54 14:26 WBC RBC Hgb POC Hgb Hct POC Hct MCV MCH MCHC RDW Std Deviation RDW Coeff of Sandra Plt Count MPV Immature Gran % (Auto) Neut % (Auto) Lymph % (Auto) [place] % (Auto) Eos % (Auto) Baso % (Auto) Immature Gran # (Auto) Neut # (Auto) Lymph # (Auto) [place] # (Auto) Eos # (Auto) Baso # (Auto) PT INR APTT > 139.0 H* PTT Ratio > 5.1 Sample Site Art Line POC pH 7.38 POC pCO2 40 POC pO2 80 POC HCO3 24 POC Base Excess -2.0 POC ABG O2 Sat 96.0 H Gunner Test NA VBG pH VBG pCO2 VBG pO2 VBG HCO3 VBG O2 Saturation VBG Base Excess Barometric Pressure O2 Delivery Device Ventilator POC O2 Rate 12 Minute Ventilation 4.7 POC FiO2 21 Tidal Volume 450 PEEP 8 POC Sodium Sodium POC Potassium Potassium POC Chloride Chloride Carbon Dioxide POC Total CO2 25 Anion Gap POC Anion Gap POC BUN BUN Creatinine POC Creatinine Est Cr Clr Drug Dosing Est GFR ( Amer) Est GFR (Non-Af Amer) BUN/Creatinine Ratio Glucose POC Glucose (other) 174 H Estimat Average Glucose Hemoglobin A1c Lactate Calcium POC Ioniz Calcium Marcie Phosphorus Magnesium Total Bilirubin GGT AST ALT Alkaline Phosphatase Lactate Dehydrogenase Troponin I Total Protein Albumin Globulin Albumin/Globulin Ratio Procalcitonin Specimen Hemolysis Urine Color Urine Appearance Urine pH Ur Specific [place] Urine Protein Urine Glucose (UA) Urine Ketones Urine Blood Urine Nitrite Urine Bilirubin Urine Urobilinogen Ur Leukocyte Esterase Urine RBC Urine WBC Ur Epithelial Cells Urine Bacteria Nasal Screen MRSA (PCR) Blood Type Antibody Screen 09/22/18 09/22/18 09/22/18 14:35 14:35 14:35 WBC 5.39 RBC 3.17 L Hgb 9.4 L POC Hgb Hct 28.2 L POC Hct MCV 89.0 MCH 29.7 MCHC 33.3 RDW Std Deviation 53.3 H RDW Coeff of Sandra 16.2 H Plt Count 194 MPV 9.3 Immature Gran % (Auto) 0.2 Neut % (Auto) 84.0 Lymph % (Auto) 13.4 [place] % (Auto) 2.4 Eos % (Auto) 0.0 Baso % (Auto) 0.0 Immature Gran # (Auto) 0.01 Neut # (Auto) 4.53 Lymph # (Auto) 0.72 L [place] # (Auto) 0.13 Eos # (Auto) 0.00 Baso # (Auto) 0.00 PT 13.0 H INR 1.3 H APTT PTT Ratio Sample Site POC pH POC pCO2 POC pO2 POC HCO3 POC Base Excess POC ABG O2 Sat Gunner Test VBG pH VBG pCO2 VBG pO2 VBG HCO3 VBG O2 Saturation VBG Base Excess Barometric Pressure O2 Delivery Device POC O2 Rate Minute Ventilation POC FiO2 Tidal Volume PEEP POC Sodium Sodium POC Potassium Potassium POC Chloride Chloride Carbon Dioxide POC Total CO2 Anion Gap POC Anion Gap POC BUN BUN Creatinine POC Creatinine Est Cr Clr Drug Dosing Est GFR ( Amer) Est GFR (Non-Af Amer) BUN/Creatinine Ratio Glucose POC Glucose (other) Estimat Average Glucose Hemoglobin A1c Lactate Calcium POC Ioniz Calcium Marcie Phosphorus Magnesium Total Bilirubin GGT AST ALT Alkaline Phosphatase Lactate Dehydrogenase Troponin I 0.026 Total Protein Albumin Globulin Albumin/Globulin Ratio Procalcitonin Specimen Hemolysis Urine Color Urine Appearance Urine pH Ur Specific [place] Urine Protein Urine Glucose (UA) Urine Ketones Urine Blood Urine Nitrite Urine Bilirubin Urine Urobilinogen Ur Leukocyte Esterase Urine RBC Urine WBC Ur Epithelial Cells Urine Bacteria Nasal Screen MRSA (PCR) Blood Type Antibody Screen 09/22/18 14:35 WBC RBC Hgb POC Hgb Hct POC Hct MCV MCH MCHC RDW Std Deviation RDW Coeff of Sandra Plt Count MPV Immature Gran % (Auto) Neut % (Auto) Lymph % (Auto) [place] % (Auto) Eos % (Auto) Baso % (Auto) Immature Gran # (Auto) Neut # (Auto) Lymph # (Auto) [place] # (Auto) Eos # (Auto) Baso # (Auto) PT INR APTT 102.0 H* PTT Ratio 3.8 Sample Site POC pH POC pCO2 POC pO2 POC HCO3 POC Base Excess POC ABG O2 Sat Gunner Test VBG pH VBG pCO2 VBG pO2 VBG HCO3 VBG O2 Saturation VBG Base Excess Barometric Pressure O2 Delivery Device POC O2 Rate Minute Ventilation POC FiO2 Tidal Volume PEEP POC Sodium Sodium POC Potassium Potassium POC Chloride Chloride Carbon Dioxide POC Total CO2 Anion Gap POC Anion Gap POC BUN BUN Creatinine POC Creatinine Est Cr Clr Drug Dosing Est GFR ( Amer) Est GFR (Non-Af Amer) BUN/Creatinine Ratio Glucose POC Glucose (other) Estimat Average Glucose Hemoglobin A1c Lactate Calcium POC Ioniz Calcium Marcie Phosphorus Magnesium Total Bilirubin GGT AST ALT Alkaline Phosphatase Lactate Dehydrogenase Troponin I Total Protein Albumin Globulin Albumin/Globulin Ratio Procalcitonin Specimen Hemolysis Urine Color Urine Appearance Urine pH Ur Specific [place] Urine Protein Urine Glucose (UA) Urine Ketones Urine Blood Urine Nitrite Urine Bilirubin Urine Urobilinogen Ur Leukocyte Esterase Urine RBC Urine WBC Ur Epithelial Cells Urine Bacteria Nasal Screen MRSA (PCR) Blood Type Antibody Screen Medications Administered Current Inpatient Medications Atorvastatin Calcium (Lipitor) 40 mg PO HS DAYSI Stop: 10/22/18 20:59 Fentanyl Citrate (Fentanyl Drip) 1,250 mcg in 250 mls @ 5 mls/hr IV .Q24H PRN; Protocol PRN Reason: TITRATE Stop: 10/06/18 00:45 Last Titration: 09/22/18 07:15 Dose: 25 mcg/hr, 5 mls/hr Documented by: Midazolam HCl (Versed) 125 mg in 250 mls @ 4 mls/hr IV .Q24H PRN; Protocol PRN Reason: TITRATE Stop: 10/22/18 00:45 Last Titration: 09/22/18 07:15 Dose: 2 mg/hr, 4 mls/hr Documented by: Norepinephrine Bitartrate 8 mg (/ Dextrose) 508 mls @ 17.09 mls/hr IV .Q24H PRN; Protocol PRN Reason: TITRATE Stop: 10/22/18 00:45 Ceftriaxone Sodium 2,000 mg/ (Dextrose) 70 mls @ 140 mls/hr IV Q24H DAYSI Stop: 09/23/18 22:01 Heparin Sodium/Dextrose (Heparin Sodium/Dextrose) 25,000 units in 500 mls @ 0 mls/hr IV .Q0M DAYSI; Protocol Stop: 10/22/18 01:14 Last Titration: 09/22/18 09:30 Dose: 0 units/hr, 0 mls/hr Documented by: Famotidine 20 mg/ Syringe 5 mls @ 2.5 mls/min IV Q24H DAYSI Stop: 10/23/18 05:59 Parenteral Electrolytes (Normosol-R) 1,000 mls @ 50 mls/hr IV .Q20H DAYSI Stop: 10/22/18 09:29 Last Admin: 09/22/18 09:50 Dose: 50 mls/hr Documented by: Ioversol (Optiray 320 125ml) 125 ml IV ONCE PRN PRN Reason: Interaction Checking Stop: 09/25/18 22:31 Last Admin: 09/21/18 22:32 Dose: 119 ml Documented by: Meperidine HCl (Demerol) 25 mg IV Q2H PRN PRN Reason: .SHIVERING Stop: 10/06/18 00:45 Last Admin: 09/22/18 04:22 Dose: 25 mg Documented by: Miscellaneous (Icu Protocol For Hyperglycemia) 1 ea N/A PRN PRN; Protocol PRN Reason: Hyperglycemia Protocol Stop: 09/24/18 00:45 Multi-Ingredient Cream (Lacri-Lube) 1 appln OP Q2H PRN PRN Reason: eye protection Stop: 10/22/18 00:45 Ticagrelor (Brilinta) 90 mg PO BID DAYSI Stop: 10/22/18 09:29 Last Admin: 09/22/18 09:50 Dose: 90 mg Documented by: PG Care Time/CCT Critical Care Time: Yes Total Critical Care Time: 40 Resident Activity Tracking Resident Involvement: Resident Care Provided Care Provided: Adult Hospital Medicine
[2018-09-22 08:16] LABS: iSTAT Arterial Blood Gas HCO3 22 meg/L (19-24); iSTAT Arterial Blood Gas pCO2 35 mmHg (35-46); iSTAT Arterial Blood Gas pH 7.41 (7.35-7.45); iSTAT Carbon Dioxide 23 mEq/l (24-31); iSTAT FiO2 50 %; iSTAT Site Art Line
[2018-09-22 08:20] LABS: INR 1.4 (0.9-1.1); Prothrombin Time 13.8 Seconds (9.0-12.0)
[2018-09-22 09:29] LABS: Partial Thromboplastin Ratio > 5.1; Partial Thromboplastin Time > 139.0 Seconds (21.0-31.0)
[2018-09-22 09:33] LABS: BUN Creatinine Ratio 12.8 (10-20); Calcium 8.3 mg/dl (8.5-10.1); Creatinine Clr Calc Pharmacy 35.3 ml/min; Est GFR (African American) 39.2; Est GFR (Non-African American) 33.8; Magnesium 2.2 mg/dl (1.8-2.4); Phosphorus 3.1 mg/dl (2.5-4.9); Potassium 3.5 mmol/L (3.5-5.1); Troponin I 0.031 ng/ml (0-0.045)
[2018-09-22] MEDS: TICAGRELOR 90 MG TAB PO SCH ×2 (09:50→21:23)
[2018-09-22] MEDS: NORMOSOL-R 1,000 ML IV SCH (09:50)
[2018-09-22] MEDS: POTASSIUM CHLORIDE / WTR 10 MEQ/100 ML PLCT IV SCH ×4 (09:50→12:59)
--- NOTE | 2018-09-22 09:51 | Cardiology Consultation ---
Date of Consultation September 22, 2018 Assessment & Plan (1) Cardiac arrest: 2. Coronary artery disease--5 vessel CABG, RCA stents; cardiac cath 07/26/18 with unsuccessful attempt to intervene on PAV to PDA Y graft stenosis 3. Ischemic cardiomyopathy 4. CKD 5. AAA 6. Aortic stenosis 7. Hypotension 8. Dementia 9. Anemia 10. Possible aspiration pneumonia Patient with cardiac arrest on 09/21/18 with ROSC in the emergency department. Currently in therapeutic hypothermia protocol. Cause of his cardiac arrest unclear at this time. He has a history of severe coronary artery disease with multiple admissions this year with troponin elevations. Cardiac cath in July with failed attempt to intervene upon PAV to PDA Y graft. Troponin negative. Echo is pending. Dr. Christine will provide further recommendations after his evaluation. Supervising Physician Co-Signing Physician Notes Patient seen and examined. Agree with assessment and plan as outlined by DAWSON Humphries. Patient well known to me from prior hospitalizations and the outpatient setting. He has severe wilton CAD post 5vCABG with only patent KENNEDY to small OM and WILNER to LAD with diffuse distal disease. RCA stent patent but PDA occluded and fills via subtotaled Y graft from PAV. Patient had recent prolonged hospitalizations in the setting of NSTEMI and persistent hypotension with pre-syncope requiring midodrine and florinef. More recently had been dealing with mild acute on chronic diastolic heart failure. Patient admitted last night in the setting of cardiac arrest with prolonged bystander CPR before ROSC with EMS. Reportedly some purposeful movement in ED prior to sedation and cooling. Currently hemodynamically stable on minimal norepi. No significant congestion on exam. Sedated/intubated and appears comfortable. Repeat echocardiogram shows unchanged regional wall motion abnormalities with new mild global LV and RV dysfunction. Suspicion that inciting event secondary to ACS very low in the setting negative troponins/stable ECG following CPR. With ICM, possible scar mediated ventricular arrhythmia. For now no plans for repeat catheterization as likelihood of new revascularizable target is low. Continued hemodynamic support as necessary. Agree with DAPT and statin. History of Present Illness Reason for Consultation: Cardiac arrest Attending Physician: Abdirahman Chávez MD History of Present Illness Mr. 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 Patient is well known to myself and Dr. Christine. Patient was hospitalized multiple times earlier this year often with significant troponin elevations. Most recently he was admitted in July with falls/hypotension and had elevated troponin with chest pain. He underwent cardiac catheterization on 07/26/18 and was found to have completely occluded left sided wilton vessels, WILNER to LAD patent and KENNEDY to small OM patent, remainder of LCx fills via right to left collaterals, RCA stents patent but ostium of PDA occluded. PDA fills via flow form Y graft from posterior AV extension, Y graft with severe focal stenosis. Unsuccessful attempt to intervene on PAV to PDA Y graft stenosis as unable to pass balloon to stenosis. Last evening he went to use the restroom when says he fell and yelled for her. She called her son who arrived several minutes later found the patient unresponsive. He started CPR until EMS arrived which reportedly was about 15 minutes. EMS gave two rounds of epinephrine, no defibrillation was given. Patient achieved ROSC in the emergency department. Patient is currently intubated and in therapeutic hypothermia protocol. Patient's reports that prior to the event he was feeling well. Allergies Allergy/AdvReac Type Severity Reaction Status Date / Time iodine Allergy Severe Unknown Verified 08/26/18 14:01 Penicillins Allergy Severe AMOXIL = Verified 08/26/18 14:01 ANAPHYLACTIC RXN clavulanic acid Allergy Unknown Unknown Verified 08/26/18 14:01 morphine AdvReac Mild VOMITING Verified 08/26/18 14:01 amoxicillin AdvReac Verified 08/26/18 14:01 Home Medications Home Medications Medication Instructions Recorded Confirmed Type atorvastatin 40 mg PO HS 02/01/18 09/21/18 History nitroglycerin [Nitrostat] 0.4 mg SUBLINGUAL DIRECTED PRN 02/01/18 09/21/18 History aspirin 81 mg PO DAILY 06/09/18 09/21/18 History cholecalciferol (vitamin D3) 1,000 unit PO DAILY 06/09/18 09/21/18 History [Vitamin D3] clopidogrel 75 mg PO DAILY 06/09/18 09/21/18 History cyanocobalamin (vitamin B-12) 1,000 mcg PO DAILY 06/09/18 09/21/18 History [Vitamin B-12] famotidine 20 mg PO BID 06/09/18 09/21/18 History pantoprazole 40 mg PO DAILY 06/09/18 09/21/18 History hydrocortisone [Proctosol HC] 1 applic EXT Q8H PRN #15 g 08/05/18 09/21/18 Rx ranolazine 1,000 mg PO BID #60 tab 08/05/18 09/21/18 Rx sennosides-docusate sodium 1 tab PO BID #60 tab 08/05/18 09/21/18 Rx [Senokot-S] lancets 33 gauge #100 ea 08/20/18 09/21/18 Rx furosemide 40 mg PO DAILY 09/21/18 09/21/18 History midodrine 10 mg PO QAM 09/21/18 09/22/18 History midodrine 5 mg PO BID 09/22/18 09/22/18 History Patient History Medical History Chronic combined systolic and diastolic heart failure Ischemic cardiomyopathy Surgical History H/O heart artery stent (Resolved) History of quadruple bypass (Resolved) Family History Other Family history non-contributory Social History Preferred Language: [place] Communication Ability: Unable Beliefs That Will Affect Care: None marital status: Current Living Situation: Spouse Feels Safe at Home: Yes Smoking Status: Never smoker Second Hand Exposure: No Hx Alcohol Use: No Hx Substance Use: No Review of Systems Review of Systems: Unable to be obtained due to endotracheal tube Physical Exam Physical Exam: General: Intubated and sedated. HEENT: Head is normal. Sclerae anicteric. Neck: No appreciable JVD. Lungs: Clear to auscultation bilaterally without rales, rhonchi or wheezes. Cardiac: Regular. Bradycardic. Grade 3/6 systolic murmur. Abdomen: Soft. Bowel sounds present. Extremities/vascular: Radial, DP and PT pulses 2+ bilaterally 1+ lower extremity edema bilaterally Neurologic: Intubated and sedated. Results & Data Vital Signs (Past 12 Hours) Vital Signs Temp Temp Temp Pulse Pulse Resp BP 09/22/18 08:30 12 09/22/18 07:22 79 16 09/22/18 07:00 32 C L 32 C L 45 L 16 09/22/18 06:00 32.2 C L 32.1 C L 48 L 16 09/22/18 05:30 09/22/18 05:03 112 H 16 09/22/18 05:00 32 C L 32 C L 56 L 16 09/22/18 04:00 32.4 C L 32.7 C L 54 L 17 09/22/18 03:00 33.1 C L 34.1 C L 51 L 18 09/22/18 02:00 34.4 C L 51 L 16 09/22/18 01:50 54 L 16 09/22/18 01:00 34.7 C L 56 L 16 09/22/18 00:30 34.7 C L 60 16 09/22/18 00:12 34.7 C L 09/22/18 00:05 53 L 09/22/18 00:00 54 L 95/55 L 09/21/18 23:58 55 L 97/61 L 09/21/18 23:55 54 L 105/63 09/21/18 23:52 57 L 09/21/18 23:51 55 L 16 09/21/18 23:50 63 97/58 L 09/21/18 23:49 58 L 87/57 L 09/21/18 23:45 58 L 09/21/18 23:40 55 L 09/21/18 23:35 54 L 09/21/18 23:30 34.8 C L 56 L 89/54 L 09/21/18 23:25 55 L 87/55 L 09/21/18 23:22 35.0 C L 09/21/18 23:20 55 L 87/57 L 09/21/18 23:15 52 L 77/48 L 09/21/18 23:10 53 L 09/21/18 23:05 54 L 09/21/18 23:03 35.2 C L 09/21/18 23:00 55 L 72/46 L 09/21/18 22:55 58 L 84/50 L 09/21/18 22:50 58 L 77/48 L 09/21/18 22:45 64 72/45 L 09/21/18 22:43 35.6 C L 66 79/50 L 09/21/18 22:40 69 86/50 L 09/21/18 22:38 69 94/48 L 09/21/18 22:37 69 69/57 L 09/21/18 22:35 65 12 09/21/18 22:00 82 114/68 09/21/18 21:55 36.1 C L 09/21/18 21:53 83 22 09/21/18 21:46 36.1 C L 86 10 L 108/76 BP BP Pulse Ox 09/22/18 08:30 09/22/18 07:22 96 09/22/18 07:00 118/59 L 103/52 L 100 09/22/18 06:00 109/54 L 109/63 100 09/22/18 05:30 105/53 L 110/61 09/22/18 05:03 96 09/22/18 05:00 95/48 L 76/58 L 100 09/22/18 04:00 93/47 L 97/62 L 100 09/22/18 03:00 104/51 L 98/45 L 100 09/22/18 02:00 104/63 100 09/22/18 01:50 97 09/22/18 01:00 107/68 100 09/22/18 00:30 100/59 L 98 09/22/18 00:12 09/22/18 00:05 97 09/22/18 00:00 09/21/18 23:58 93 09/21/18 23:55 09/21/18 23:52 97 09/21/18 23:51 96 09/21/18 23:50 93 09/21/18 23:49 09/21/18 23:45 09/21/18 23:40 96 09/21/18 23:35 94 09/21/18 23:30 91 09/21/18 23:25 90 09/21/18 23:22 09/21/18 23:20 91 09/21/18 23:15 93 09/21/18 23:10 95 09/21/18 23:05 95 09/21/18 23:03 09/21/18 23:00 94 09/21/18 22:55 94 09/21/18 22:50 98 09/21/18 22:45 100 09/21/18 22:43 100 09/21/18 22:40 99 09/21/18 22:38 09/21/18 22:37 09/21/18 22:35 98 09/21/18 22:00 100 09/21/18 21:55 09/21/18 21:53 100 09/21/18 21:46 100 Laboratory Results Laboratory Results - last 24 hr 09/21/18 09/21/18 09/21/18 21:51 21:58 21:58 WBC 8.92 RBC 3.38 L Hgb 10.1 L POC Hgb 10.2 L Hct 31.1 L POC Hct 30 L MCV 92.0 MCH 29.9 MCHC 32.5 RDW Std Deviation 55.0 H RDW Coeff of Sandra 16.4 H Plt Count 251 MPV 9.8 Immature Gran % (Auto) 0.6 Neut % (Auto) 39.6 Lymph % (Auto) 49.8 [place] % (Auto) 7.1 Eos % (Auto) 2.7 Baso % (Auto) 0.2 Immature Gran # (Auto) 0.05 H Neut # (Auto) 3.54 Lymph # (Auto) 4.44 H [place] # (Auto) 0.63 H Eos # (Auto) 0.24 Baso # (Auto) 0.02 PT INR APTT PTT Ratio Sample Site POC pH POC pCO2 POC pO2 POC HCO3 POC Base Excess POC ABG O2 Sat Gunner Test VBG pH VBG pCO2 VBG pO2 VBG HCO3 VBG O2 Saturation VBG Base Excess Barometric Pressure O2 Delivery Device POC O2 Rate Minute Ventilation POC FiO2 Tidal Volume PEEP POC Sodium 140 Sodium POC Potassium 3.4 Potassium POC Chloride 99 L Chloride Carbon Dioxide POC Total CO2 25 Anion Gap POC Anion Gap 20.0 POC BUN 22 H BUN Creatinine POC Creatinine 1.8 H Est Cr Clr Drug Dosing Est GFR ( Amer) Est GFR (Non-Af Amer) BUN/Creatinine Ratio Glucose POC Glucose (other) 185 H Estimat Average Glucose Hemoglobin A1c Lactate Calcium POC Ioniz Calcium Marcie 1.12 Phosphorus Magnesium Total Bilirubin GGT AST ALT Alkaline Phosphatase Lactate Dehydrogenase Troponin I Total Protein Albumin Globulin Albumin/Globulin Ratio Procalcitonin < 0.05 Specimen Hemolysis Urine Color Urine Appearance Urine pH Ur Specific [place] Urine Protein Urine Glucose (UA) Urine Ketones Urine Blood Urine Nitrite Urine Bilirubin Urine Urobilinogen Ur Leukocyte Esterase Urine RBC Urine WBC Ur Epithelial Cells Urine Bacteria Nasal Screen MRSA (PCR) Blood Type Antibody Screen 09/21/18 09/21/18 09/21/18 21:58 21:58 21:58 WBC RBC Hgb POC Hgb Hct POC Hct MCV MCH MCHC RDW Std Deviation RDW Coeff of Sandra Plt Count MPV Immature Gran % (Auto) Neut % (Auto) Lymph % (Auto) [place] % (Auto) Eos % (Auto) Baso % (Auto) Immature Gran # (Auto) Neut # (Auto) Lymph # (Auto) [place] # (Auto) Eos # (Auto) Baso # (Auto) PT 12.4 H INR 1.2 H APTT 25.1 PTT Ratio 0.9 Sample Site POC pH POC pCO2 POC pO2 POC HCO3 POC Base Excess POC ABG O2 Sat Gunner Test VBG pH VBG pCO2 VBG pO2 VBG HCO3 VBG O2 Saturation VBG Base Excess Barometric Pressure O2 Delivery Device POC O2 Rate Minute Ventilation POC FiO2 Tidal Volume PEEP POC Sodium Sodium 140 POC Potassium Potassium 3.4 L POC Chloride Chloride 103 Carbon Dioxide 27 POC Total CO2 Anion Gap 10.0 POC Anion Gap POC BUN BUN 21 H Creatinine 1.87 H POC Creatinine Est Cr Clr Drug Dosing 31.9 Est GFR ( Amer) 37.7 Est GFR (Non-Af Amer) 32.5 BUN/Creatinine Ratio 11.4 Glucose 184 H POC Glucose (other) Estimat Average Glucose Hemoglobin A1c Lactate 4.0 H* Calcium 8.6 POC Ioniz Calcium Marcie Phosphorus Magnesium 2.2 Total Bilirubin 1.4 H GGT AST 17 ALT 13 Alkaline Phosphatase 95 Lactate Dehydrogenase Troponin I 0.031 Total Protein 6.1 L Albumin 3.0 L Globulin 3.1 Albumin/Globulin Ratio 1.0 Procalcitonin Specimen Hemolysis Urine Color Urine Appearance Urine pH Ur Specific [place] Urine Protein Urine Glucose (UA) Urine Ketones Urine Blood Urine Nitrite Urine Bilirubin Urine Urobilinogen Ur Leukocyte Esterase Urine RBC Urine WBC Ur Epithelial Cells Urine Bacteria Nasal Screen MRSA (PCR) Blood Type Antibody Screen 09/21/18 09/21/18 09/22/18 21:58 22:50 01:15 WBC RBC Hgb POC Hgb Hct POC Hct MCV MCH MCHC RDW Std Deviation RDW Coeff of Sandra Plt Count MPV Immature Gran % (Auto) Neut % (Auto) Lymph % (Auto) [place] % (Auto) Eos % (Auto) Baso % (Auto) Immature Gran # (Auto) Neut # (Auto) Lymph # (Auto) [place] # (Auto) Eos # (Auto) Baso # (Auto) PT INR APTT PTT Ratio Sample Site POC pH POC pCO2 POC pO2 POC HCO3 POC Base Excess POC ABG O2 Sat Gunner Test VBG pH 7.34 L VBG pCO2 48 VBG pO2 50 VBG HCO3 25 VBG O2 Saturation 81.0 VBG Base Excess -0.7 Barometric Pressure 734.0 O2 Delivery Device POC O2 Rate Minute Ventilation POC FiO2 Tidal Volume PEEP POC Sodium Sodium POC Potassium Potassium POC Chloride Chloride Carbon Dioxide POC Total CO2 Anion Gap POC Anion Gap POC BUN BUN Creatinine POC Creatinine Est Cr Clr Drug Dosing Est GFR ( Amer) Est GFR (Non-Af Amer) BUN/Creatinine Ratio Glucose POC Glucose (other) Estimat Average Glucose Hemoglobin A1c Lactate Calcium POC Ioniz Calcium Marcie Phosphorus Magnesium Total Bilirubin GGT AST ALT Alkaline Phosphatase Lactate Dehydrogenase Troponin I Total Protein Albumin Globulin Albumin/Globulin Ratio Procalcitonin Specimen Hemolysis Urine Color Yellow Urine Appearance Cloudy A Urine pH 5.0 Ur Specific [place] >= 1.030 Urine Protein 3+ H Urine Glucose (UA) Trace H Urine Ketones Trace H Urine Blood 3+ H Urine Nitrite Negative Urine Bilirubin 1+ H Urine Urobilinogen Negative Ur Leukocyte Esterase Negative Urine RBC Not Reportable Urine WBC Not Reportable Ur Epithelial Cells Not Reportable Urine Bacteria Not Reportable Nasal Screen MRSA (PCR) Negative Blood Type Antibody Screen 09/22/18 09/22/18 09/22/18 02:59 02:59 02:59 WBC RBC Hgb POC Hgb Hct POC Hct MCV MCH MCHC RDW Std Deviation RDW Coeff of Sandra Plt Count MPV Immature Gran % (Auto) Neut % (Auto) Lymph % (Auto) [place] % (Auto) Eos % (Auto) Baso % (Auto) Immature Gran # (Auto) Neut # (Auto) Lymph # (Auto) [place] # (Auto) Eos # (Auto) Baso # (Auto) PT INR APTT PTT Ratio Sample Site POC pH POC pCO2 POC pO2 POC HCO3 POC Base Excess POC ABG O2 Sat Gunner Test VBG pH VBG pCO2 VBG pO2 VBG HCO3 VBG O2 Saturation VBG Base Excess Barometric Pressure O2 Delivery Device POC O2 Rate Minute Ventilation POC FiO2 Tidal Volume PEEP POC Sodium Sodium 139 POC Potassium Potassium 3.6 POC Chloride Chloride 104 Carbon Dioxide 26 POC Total CO2 Anion Gap 9.0 POC Anion Gap POC BUN BUN 23 H Creatinine 1.86 H POC Creatinine Est Cr Clr Drug Dosing 34.4 Est GFR ( Amer) 37.9 Est GFR (Non-Af Amer) 32.7 BUN/Creatinine Ratio 12.2 Glucose 163 H POC Glucose (other) Estimat Average Glucose Hemoglobin A1c Lactate Calcium 8.0 L POC Ioniz Calcium Marcie Phosphorus 3.1 Magnesium 2.2 Total Bilirubin GGT AST ALT Alkaline Phosphatase Lactate Dehydrogenase 176 Troponin I 0.032 Total Protein Albumin Globulin Albumin/Globulin Ratio Procalcitonin Specimen Hemolysis Urine Color Urine Appearance Urine pH Ur Specific [place] Urine Protein Urine Glucose (UA) Urine Ketones Urine Blood Urine Nitrite Urine Bilirubin Urine Urobilinogen Ur Leukocyte Esterase Urine RBC Urine WBC Ur Epithelial Cells Urine Bacteria Nasal Screen MRSA (PCR) Blood Type Antibody Screen 09/22/18 09/22/18 09/22/18 02:59 02:59 02:59 WBC RBC Hgb POC Hgb Hct POC Hct MCV MCH MCHC RDW Std Deviation RDW Coeff of Sandra Plt Count MPV Immature Gran % (Auto) Neut % (Auto) Lymph % (Auto) [place] % (Auto) Eos % (Auto) Baso % (Auto) Immature Gran # (Auto) Neut # (Auto) Lymph # (Auto) [place] # (Auto) Eos # (Auto) Baso # (Auto) PT INR APTT PTT Ratio Sample Site POC pH POC pCO2 POC pO2 POC HCO3 POC Base Excess POC ABG O2 Sat Gunner Test VBG pH VBG pCO2 VBG pO2 VBG HCO3 VBG O2 Saturation VBG Base Excess Barometric Pressure O2 Delivery Device POC O2 Rate Minute Ventilation POC FiO2 Tidal Volume PEEP POC Sodium Sodium POC Potassium Potassium POC Chloride Chloride Carbon Dioxide POC Total CO2 Anion Gap POC Anion Gap POC BUN BUN Creatinine POC Creatinine Est Cr Clr Drug Dosing Est GFR ( Amer) Est GFR (Non-Af Amer) BUN/Creatinine Ratio Glucose POC Glucose (other) Estimat Average Glucose 120 Hemoglobin A1c 5.8 H Lactate Calcium POC Ioniz Calcium Marcie Phosphorus Magnesium Total Bilirubin GGT Pending AST ALT Alkaline Phosphatase Lactate Dehydrogenase Troponin I Total Protein Albumin Globulin Albumin/Globulin Ratio Procalcitonin Specimen Hemolysis Urine Color Urine Appearance Urine pH Ur Specific [place] Urine Protein Urine Glucose (UA) Urine Ketones Urine Blood Urine Nitrite Urine Bilirubin Urine Urobilinogen Ur Leukocyte Esterase Urine RBC Urine WBC Ur Epithelial Cells Urine Bacteria Nasal Screen MRSA (PCR) Blood Type AB Negative Antibody Screen NEGATIVE 09/22/18 09/22/18 09/22/18 02:59 02:59 03:56 WBC 8.42 RBC 3.24 L Hgb 9.7 L POC Hgb Hct 29.4 L POC Hct MCV 90.7 MCH 29.9 MCHC 33.0 RDW Std Deviation 54.4 H RDW Coeff of Sandra 16.2 H Plt Count 233 MPV 10.0 Immature Gran % (Auto) 0.2 Neut % (Auto) 85.2 Lymph % (Auto) 9.0 [place] % (Auto) 5.1 Eos % (Auto) 0.5 Baso % (Auto) 0.0 Immature Gran # (Auto) 0.02 Neut # (Auto) 7.17 H Lymph # (Auto) 0.76 L [place] # (Auto) 0.43 Eos # (Auto) 0.04 Baso # (Auto) 0.00 PT 13.8 H INR 1.4 H APTT 61.4 H* PTT Ratio 2.3 Sample Site Art Line POC pH 7.30 L POC pCO2 53 H POC pO2 291 H POC HCO3 26 H POC Base Excess 0.0 POC ABG O2 Sat 100.0 H Gunner Test NA VBG pH VBG pCO2 VBG pO2 VBG HCO3 VBG O2 Saturation VBG Base Excess Barometric Pressure O2 Delivery Device Ventilator POC O2 Rate 16 Minute Ventilation 8.1 POC FiO2 Tidal Volume 450 PEEP 8 POC Sodium Sodium POC Potassium Potassium POC Chloride Chloride Carbon Dioxide POC Total CO2 28 Anion Gap POC Anion Gap POC BUN BUN Creatinine POC Creatinine Est Cr Clr Drug Dosing Est GFR ( Amer) Est GFR (Non-Af Amer) BUN/Creatinine Ratio Glucose POC Glucose (other) Estimat Average Glucose Hemoglobin A1c Lactate Calcium POC Ioniz Calcium Marcie Phosphorus Magnesium Total Bilirubin GGT AST ALT Alkaline Phosphatase Lactate Dehydrogenase Troponin I Total Protein Albumin Globulin Albumin/Globulin Ratio Procalcitonin Specimen Hemolysis Urine Color Urine Appearance Urine pH Ur Specific [place] Urine Protein Urine Glucose (UA) Urine Ketones Urine Blood Urine Nitrite Urine Bilirubin Urine Urobilinogen Ur Leukocyte Esterase Urine RBC Urine WBC Ur Epithelial Cells Urine Bacteria Nasal Screen MRSA (PCR) Blood Type Antibody Screen 09/22/18 09/22/18 09/22/18 05:56 07:20 07:20 WBC 7.40 RBC 3.19 L Hgb 9.5 L POC Hgb Hct 28.9 L POC Hct MCV 90.6 MCH 29.8 MCHC 32.9 RDW Std Deviation 54.3 H RDW Coeff of Sandra 16.2 H Plt Count 218 MPV 9.7 Immature Gran % (Auto) 0.1 Neut % (Auto) 86.0 Lymph % (Auto) 9.7 [place] % (Auto) 3.8 Eos % (Auto) 0.3 Baso % (Auto) 0.1 Immature Gran # (Auto) 0.01 Neut # (Auto) 6.36 Lymph # (Auto) 0.72 L [place] # (Auto) 0.28 Eos # (Auto) 0.02 Baso # (Auto) 0.01 PT 13.8 H INR 1.4 H APTT Cancelled PTT Ratio Cancelled Sample Site POC pH POC pCO2 POC pO2 POC HCO3 POC Base Excess POC ABG O2 Sat Gunner Test VBG pH VBG pCO2 VBG pO2 VBG HCO3 VBG O2 Saturation VBG Base Excess Barometric Pressure O2 Delivery Device POC O2 Rate Minute Ventilation POC FiO2 Tidal Volume PEEP POC Sodium Sodium POC Potassium Potassium POC Chloride Chloride Carbon Dioxide POC Total CO2 Anion Gap POC Anion Gap POC BUN BUN Creatinine POC Creatinine Est Cr Clr Drug Dosing Est GFR ( Amer) Est GFR (Non-Af Amer) BUN/Creatinine Ratio Glucose POC Glucose (other) 205 H Estimat Average Glucose Hemoglobin A1c Lactate Calcium POC Ioniz Calcium Marcie Phosphorus Magnesium Total Bilirubin GGT AST ALT Alkaline Phosphatase Lactate Dehydrogenase Troponin I Total Protein Albumin Globulin Albumin/Globulin Ratio Procalcitonin Specimen Hemolysis Urine Color Urine Appearance Urine pH Ur Specific [place] Urine Protein Urine Glucose (UA) Urine Ketones Urine Blood Urine Nitrite Urine Bilirubin Urine Urobilinogen Ur Leukocyte Esterase Urine RBC Urine WBC Ur Epithelial Cells Urine Bacteria Nasal Screen MRSA (PCR) Blood Type Antibody Screen 09/22/18 09/22/18 09/22/18 08:03 08:54 08:54 WBC RBC Hgb POC Hgb Hct POC Hct MCV MCH MCHC RDW Std Deviation RDW Coeff of Sandra Plt Count MPV Immature Gran % (Auto) Neut % (Auto) Lymph % (Auto) [place] % (Auto) Eos % (Auto) Baso % (Auto) Immature Gran # (Auto) Neut # (Auto) Lymph # (Auto) [place] # (Auto) Eos # (Auto) Baso # (Auto) PT INR APTT > 139.0 H* PTT Ratio > 5.1 Sample Site Art Line POC pH 7.41 POC pCO2 35 POC pO2 132 H POC HCO3 22 POC Base Excess -3.0 POC ABG O2 Sat 99.0 H Gunner Test NA VBG pH VBG pCO2 VBG pO2 VBG HCO3 VBG O2 Saturation VBG Base Excess Barometric Pressure O2 Delivery Device Ventilator POC O2 Rate 16 Minute Ventilation 6.4 POC FiO2 50 Tidal Volume 450 PEEP 8 POC Sodium Sodium 139 POC Potassium Potassium 3.5 POC Chloride Chloride 105 Carbon Dioxide 25 POC Total CO2 23 L Anion Gap 9.0 POC Anion Gap POC BUN BUN 23 H Creatinine 1.81 H POC Creatinine Est Cr Clr Drug Dosing 35.3 Est GFR ( Amer) 39.2 Est GFR (Non-Af Amer) 33.8 BUN/Creatinine Ratio 12.8 Glucose 177 H POC Glucose (other) Estimat Average Glucose Hemoglobin A1c Lactate Calcium 8.3 L POC Ioniz Calcium Marcie Phosphorus 3.1 Magnesium 2.2 Total Bilirubin GGT AST ALT Alkaline Phosphatase Lactate Dehydrogenase Troponin I 0.031 Total Protein Albumin Globulin Albumin/Globulin Ratio Procalcitonin Specimen Hemolysis Urine Color Urine Appearance Urine pH Ur Specific [place] Urine Protein Urine Glucose (UA) Urine Ketones Urine Blood Urine Nitrite Urine Bilirubin Urine Urobilinogen Ur Leukocyte Esterase Urine RBC Urine WBC Ur Epithelial Cells Urine Bacteria Nasal Screen MRSA (PCR) Blood Type Antibody Screen
--- NOTE | 2018-09-22 10:57 | Neurology Consultation ---
Date of Consultation September 22, 2018 Assessment & Plan (1) Anoxic encephalopathy: Anoxic encephalopathy following cardiac arrest. Patient currently on hypothermia protocol. No evidence of seizure activity on EEG completed this morning. Given length of time of arrest, age, and medical comorbidities I suspect a poor prognosis for recovery. Attempt to wean from sedatives and life support as appropriate. I will continue to follow his progress and reevaluate his clinical status as appropriate. History of Present Illness Reason for Consultation: Hypothermia protocol status post cardiac arrest Requesting Physician: Pk Bloom DO Attending Physician: Abdirahman Chávez MD History of Present Illness The patient is an 82-year-old male who presented to the emergency department yesterday after cardiac arrest that occurred at home. He had reportedly fell in his bathroom and was found unresponsive by his son. He was not breathing and did not have a pulse. CPR was administered for about 15 minutes. EMS arrived and treated the patient further with epinephrine. He remained asystolic and was intubated prior to arrival in the emergency department. Return of spontaneous circulation was achieved. He reportedly was attempting to grab at his endotracheal tube but was unable to follow commands. He has a known history of congestive heart failure, ischemic cardiomyopathy, and multivessel coronary stenting. He underwent cardiac catheterization this past July. His history is also notable for diabetes mellitus, dementia, chronic kidney disease, anemia, hypertension, peripheral neuropathy, and monoclonal gammopathy of undetermined significance. He was admitted to the intensive care unit and started on the hypothermia protocol. He remains unresponsive on life support. His family is at bedside. A bedside EEG was completed this morning. Results are as described below. Allergies Allergy/AdvReac Type Severity Reaction Status Date / Time iodine Allergy Severe Unknown Verified 08/26/18 14:01 Penicillins Allergy Severe AMOXIL = Verified 08/26/18 14:01 ANAPHYLACTIC RXN clavulanic acid Allergy Unknown Unknown Verified 08/26/18 14:01 morphine AdvReac Mild VOMITING Verified 08/26/18 14:01 amoxicillin AdvReac Verified 08/26/18 14:01 Home Medications Home Medications Medication Instructions Recorded Confirmed Type atorvastatin 40 mg PO HS 02/01/18 09/21/18 History nitroglycerin [Nitrostat] 0.4 mg SUBLINGUAL DIRECTED PRN 02/01/18 09/21/18 History aspirin 81 mg PO DAILY 06/09/18 09/21/18 History cholecalciferol (vitamin D3) 1,000 unit PO DAILY 06/09/18 09/21/18 History [Vitamin D3] clopidogrel 75 mg PO DAILY 06/09/18 09/21/18 History cyanocobalamin (vitamin B-12) 1,000 mcg PO DAILY 06/09/18 09/21/18 History [Vitamin B-12] famotidine 20 mg PO BID 06/09/18 09/21/18 History pantoprazole 40 mg PO DAILY 06/09/18 09/21/18 History hydrocortisone [Proctosol HC] 1 applic EXT Q8H PRN #15 g 08/05/18 09/21/18 Rx ranolazine 1,000 mg PO BID #60 tab 08/05/18 09/21/18 Rx sennosides-docusate sodium 1 tab PO BID #60 tab 08/05/18 09/21/18 Rx [Senokot-S] lancets 33 gauge #100 ea 08/20/18 09/21/18 Rx furosemide 40 mg PO DAILY 09/21/18 09/21/18 History midodrine 10 mg PO QAM 09/21/18 09/22/18 History midodrine 5 mg PO BID 09/22/18 09/22/18 History Patient History Medical History Chronic combined systolic and diastolic heart failure Ischemic cardiomyopathy Surgical History H/O heart artery stent (Resolved) History of quadruple bypass (Resolved) Family History Other Family history non-contributory Social History Preferred Language: Gu[place]ian Communication Ability: Unable Beliefs That Will Affect Care: None marital status: Current Living Situation: Spouse Feels Safe at Home: Yes Smoking Status: Never smoker Second Hand Exposure: No Hx Alcohol Use: No Hx Substance Use: No Review of Systems Review of Systems: Unable to obtain as patient is intubated on life support. Physical Exam Physical Exam: The patient is a well-developed elderly male. He is intubated and unresponsive. Orientation and higher integrative cognitive functions cannot be assessed. Visual triplett cannot be assessed. Pupils 2 mm round and unreac tive to light. There is no gaze preference or nystagmus. I am unable to elicit blink, oculocephalic, or gag reflexes. Cranial nerve function cannot otherwise be assessed. Sensation cannot be assessed. Deep tendon reflexes are generally absent. Plantar responses silent bilaterally. Coordination cannot be tested. Direct ophthalmoscopic examination cannot be completed due to small patient pup il size. Carotid pulses normal bilaterally, no bruits to auscultation. Gait and station cannot be tested. Muscle strength cannot be tested. Muscle tone is flaccid throughout. There is no atrophy. No abnormal movements observed. Results & Data Vital Signs (Past 12 Hours) Vital Signs Temp Temp Temp Pulse Pulse Resp BP 09/22/18 10:00 48 L 12 111/59 L 09/22/18 09:00 49 L 12 118/67 09/22/18 08:30 12 09/22/18 08:00 09/22/18 07:22 79 16 09/22/18 07:00 32 C L 32 C L 45 L 16 09/22/18 06:00 32.2 C L 32.1 C L 48 L 16 09/22/18 05:30 09/22/18 05:03 112 H 16 09/22/18 05:00 32 C L 32 C L 56 L 16 09/22/18 04:00 32.4 C L 32.7 C L 54 L 17 09/22/18 03:00 33.1 C L 34.1 C L 51 L 18 09/22/18 02:00 34.4 C L 51 L 16 09/22/18 01:50 54 L 16 09/22/18 01:00 34.7 C L 56 L 16 09/22/18 00:30 34.7 C L 60 16 09/22/18 00:12 34.7 C L 09/22/18 00:05 53 L 09/22/18 00:00 54 L 95/55 L 09/21/18 23:58 55 L 97/61 L 09/21/18 23:55 54 L 105/63 09/21/18 23:52 57 L 09/21/18 23:51 55 L 16 09/21/18 23:50 63 97/58 L 09/21/18 23:49 58 L 87/57 L 09/21/18 23:45 58 L 09/21/18 23:40 55 L 09/21/18 23:35 54 L 09/21/18 23:30 34.8 C L 56 L 89/54 L 09/21/18 23:25 55 L 87/55 L 09/21/18 23:22 35.0 C L 09/21/18 23:20 55 L 87/57 L 09/21/18 23:15 52 L 77/48 L 09/21/18 23:10 53 L 09/21/18 23:05 54 L 09/21/18 23:03 35.2 C L 09/21/18 23:00 55 L 72/46 L 09/21/18 22:55 58 L 84/50 L 09/21/18 22:50 58 L 77/48 L 09/21/18 22:45 64 72/45 L 09/21/18 22:43 35.6 C L 66 79/50 L 09/21/18 22:40 69 86/50 L 09/21/18 22:38 69 94/48 L 09/21/18 22:37 69 69/57 L 09/21/18 22:35 65 12 BP BP Pulse Ox 09/22/18 10:00 108/55 L 111/59 L 100 09/22/18 09:00 122/62 118/67 100 09/22/18 08:30 09/22/18 08:00 119/59 L 122/66 100 09/22/18 07:22 96 09/22/18 07:00 118/59 L 103/52 L 100 09/22/18 06:00 109/54 L 109/63 100 09/22/18 05:30 105/53 L 110/61 09/22/18 05:03 96 09/22/18 05:00 95/48 L 76/58 L 100 09/22/18 04:00 93/47 L 97/62 L 100 09/22/18 03:00 104/51 L 98/45 L 100 09/22/18 02:00 104/63 100 09/22/18 01:50 97 09/22/18 01:00 107/68 100 09/22/18 00:30 100/59 L 98 09/22/18 00:12 09/22/18 00:05 97 09/22/18 00:00 09/21/18 23:58 93 09/21/18 23:55 09/21/18 23:52 97 09/21/18 23:51 96 09/21/18 23:50 93 09/21/18 23:49 09/21/18 23:45 09/21/18 23:40 96 09/21/18 23:35 94 09/21/18 23:30 91 09/21/18 23:25 90 09/21/18 23:22 09/21/18 23:20 91 09/21/18 23:15 93 09/21/18 23:10 95 09/21/18 23:05 95 09/21/18 23:03 09/21/18 23:00 94 09/21/18 22:55 94 09/21/18 22:50 98 09/21/18 22:45 100 09/21/18 22:43 100 09/21/18 22:40 99 09/21/18 22:38 09/21/18 22:37 09/21/18 22:35 98 Laboratory Results Recently completed labs reviewed. WBC 7.40, hemoglobin 9.5, hematocrit 28.9, platelet count 218, sodium 139, potassium 3.5, BUN 23, creatinine 1.81, glucose 177, calcium 8.3, magnesium 2.[address] of the head completed yesterday reveals patchy white matter hypodensities consistent with chronic microvascular ischemic change and generalized atrophy. No hemorrhage or acute process. Images and report reviewed. CT angiography of the head and neck reveal extensive plaque in the bilateral internal carotid and vertebral arteries but without high-grade stenosis, occlusion, dissection, or aneurysm. An electrocardiogram reveals a wide QRS rhythm, 54 bpm. An electroencephalogram completed this morning reveals a poorly organized low amplitude background rhythm and a prominent frontal beta rhythm. Findings consistent with encephalopathy. No evidence of seizure activity.
[2018-09-22 11:01] LABS: Eosinophils # (auto) 0.01 K/uL (0-0.5); Eosinophils % (auto) 0.2 %; Hematocrit (blood only) 28.3 % (42-52); Hemoglobin 9.5 g/dL (14.0-18.0); Immature Granulocytes # (auto) 0.01 K/uL (0.00-0.02); Immature Granulocytes % (auto) 0.2 %; Lymphocytes # (auto) 0.75 K/uL (1.2-3.4); Lymphocytes % (auto) 11.8 %; Mean Corpuscular Hgb Conc 33.6 g/dL (32-36); Mean Corpuscular Volume 90.1 fL (80-100); Mean Platelet Volume 9.3 fL (7.4-10.4); Monocytes # (auto) 0.22 K/uL (0.11-0.59); Monocytes % (auto) 3.5 %; Neutrophils # (auto) 5.35 K/uL (1.4-6.5); Neutrophils % (auto) 84.3 %; Platelet Count 202 K/uL (130-400); RDW Coefficient of Variation 16.4 % (11.5-14.5); RDW Standard Deviation 54.2 fL (36.4-46.3); Red Blood Count 3.14 M/uL (4.7-6.1); White Blood Count 6.34 K/uL (4.8-10.8)
--- NOTE | 2018-09-22 11:03 | Procedure Note ---
EEG Procedure Note Date of Service September 22, 2018 Start / End Times Start Time: 9:46 AM End Time: 10:06 AM Referring Physician Shawn Dela Cruz DO History Cardiac arrest, hypothermia protocol, encephalopathy Home Medication List Home Medications Medication Instructions Recorded Confirmed Type atorvastatin 40 mg PO HS 02/01/18 09/21/18 History nitroglycerin [Nitrostat] 0.4 mg SUBLINGUAL DIRECTED PRN 02/01/18 09/21/18 History aspirin 81 mg PO DAILY 06/09/18 09/21/18 History cholecalciferol (vitamin D3) 1,000 unit PO DAILY 06/09/18 09/21/18 History [Vitamin D3] clopidogrel 75 mg PO DAILY 06/09/18 09/21/18 History cyanocobalamin (vitamin B-12) 1,000 mcg PO DAILY 06/09/18 09/21/18 History [Vitamin B-12] famotidine 20 mg PO BID 06/09/18 09/21/18 History pantoprazole 40 mg PO DAILY 06/09/18 09/21/18 History hydrocortisone [Proctosol HC] 1 applic EXT Q8H PRN #15 g 08/05/18 09/21/18 Rx ranolazine 1,000 mg PO BID #60 tab 08/05/18 09/21/18 Rx sennosides-docusate sodium 1 tab PO BID #60 tab 08/05/18 09/21/18 Rx [Senokot-S] lancets 33 gauge #100 ea 08/20/18 09/21/18 Rx furosemide 40 mg PO DAILY 09/21/18 09/21/18 History midodrine 10 mg PO QAM 09/21/18 09/22/18 History midodrine 5 mg PO BID 09/22/18 09/22/18 History Inpatient Medication List Fentanyl Citrate (Fentanyl Drip) 1,250 mcg in 250 mls @ 5 mls/hr IV .Q24H PRN; Protocol PRN Reason: TITRATE Stop: 10/06/18 00:45 Last Titration: 09/22/18 07:15 Dose: 25 mcg/hr, 5 mls/hr Documented by: [id number] Cosigned by: [id number] Admin: 09/22/18 01:16 Dose: 25 mcg/hr, 5 mls/hr Documented by: [id number] Cosigned by: [id number] Midazolam HCl (Versed) 125 mg in 250 mls @ 4 mls/hr IV .Q24H PRN; Protocol PRN Reason: TITRATE Stop: 10/22/18 00:45 Last Titration: 09/22/18 07:15 Dose: 2 mg/hr, 4 mls/hr Documented by: [id number] Cosigned by: [id number] Titration: 09/22/18 04:00 Dose: 2 mg/hr, 4 mls/hr Documented by: [id number] Admin: 09/22/18 01:15 Dose: 1 mg/hr, 2 mls/hr Documented by: [id number] Cosigned by: [id number] Heparin Sodium/Dextrose (Heparin Sodium/Dextrose) 25,000 units in 500 mls @ 0 mls/hr IV .Q0M DAYSI; Protocol Stop: 10/22/18 01:14 Last Titration: 09/22/18 09:30 Dose: 0 units/hr, 0 mls/hr Documented by: [id number] Cosigned by: [id number] Titration: 09/22/18 07:15 Dose: 1,450 units/hr, 29 mls/hr Documented by: [id number] Cosigned by: [id number] Admin: 09/22/18 01:24 Dose: 1,450 units/hr, 29 mls/hr Documented by: [id number] Cosigned by: [id number] Potassium Chloride (K Frank / Wtr) 10 meq in 100 mls @ 100 mls/hr IV Q1H DAYSI Stop: 09/22/18 12:59 Last Admin: 09/22/18 10:47 Dose: 100 mls/hr Documented by: [id number] Infusion: 09/22/18 10:47 Dose: 100 mls/hr Documented by: [id number] Admin: 09/22/18 09:50 Dose: 100 mls/hr Documented by: [id number] Parenteral Electrolytes (Normosol-R) 1,000 mls @ 50 mls/hr IV .Q20H DAYSI Stop: 10/22/18 09:29 Last Admin: 09/22/18 09:50 Dose: 50 mls/hr Documented by: [id number] Ioversol (Optiray 320 125ml) 125 ml IV ONCE PRN PRN Reason: Interaction Checking Stop: 09/25/18 22:31 Last Admin: 09/21/18 22:32 Dose: 119 ml Documented by: [id number] Meperidine HCl (Demerol) 25 mg IV Q2H PRN PRN Reason: .SHIVERING Stop: 10/06/18 00:45 Last Admin: 09/22/18 04:22 Dose: 25 mg Documented by: [id number] Ticagrelor (Brilinta) 90 mg PO BID [facility] Stop: 10/22/18 09:29 Last Admin: 09/22/18 09:50 Dose: 90 mg Documented by: [id number] Discontinued Medications Diphenhydramine HCl (Benadryl) 25 mg IV NOW STA Stop: 09/21/18 21:58 Last Admin: 09/21/18 22:05 Dose: 25 mg Documented by: [id number] Fentanyl Citrate (Fentanyl Citrate) 100 mcg IV NOW ONE Stop: 09/21/18 22:36 Last Admin: 09/21/18 22:39 Dose: 100 mcg Documented by: [id number] Fentanyl Citrate (Fentanyl Citrate) Confirm Administered Dose 100 mcg .ROUTE .STK-MED ONE Stop: 09/21/18 22:37 Last Admin: 09/21/18 22:40 Dose: Not Given Documented by: [id number] Fentanyl Citrate (Fentanyl Citrate) 100 mcg IV Q2H PRN PRN Reason: Severe Pain (7,8,9,10) Stop: 10/05/18 22:57 Last Admin: 09/21/18 23:49 Dose: 100 mcg Documented by: [id number] Heparin Sodium/Dextrose () 1 ea IV Q15M [facility]; Protocol Stop: 10/22/18 00:45 Last Admin: 09/22/18 03:41 Dose: Not Given Documented by: [id number] Admin: 09/22/18 03:41 Dose: Not Given Documented by: [id number] Admin: 09/22/18 03:41 Dose: Not Given Documented by: [id number] Admin: 09/22/18 03:41 Dose: Not Given Documented by: [id number] Admin: 09/22/18 01:15 Dose: 1 ea Documented by: [id number] Famotidine (Pepcid 20mg Iv Push) 20 mg in 5 mls @ 2.5 mls/min IV NOW STA Stop: 09/21/18 21:58 Last Admin: 09/21/18 22:05 Dose: 2.5 mls/min Documented by: [id number] Propofol (Diprivan) 1,000 mg in 100 mls @ 0 mls/hr IV .Q0M PRN; Protocol PRN Reason: TITRATE Stop: 09/24/18 22:14 Last Titration: 09/21/18 23:56 Dose: 0 mcg/kg/min, 0 mls/hr Documented by: [id number] Titration: 09/21/18 22:57 Dose: 0 mcg/kg/min, 0 mls/hr Documented by: [id number] Titration: 09/21/18 22:47 Dose: 5 mcg/kg/min, 2.5 mls/hr Documented by: [id number] Titration: 09/21/18 22:41 Dose: 10 mcg/kg/min, 5.1 mls/hr Documented by: [id number] Admin: 09/21/18 22:05 Dose: 5 mcg/kg/min, 2.5 mls/hr Documented by: [id number] Cosigned by: [id number] Sodium Chloride (Nss 1000ml) 1,000 mls @ 999 mls/hr IV .Q1H1M ONE Stop: 09/21/18 23:31 Last Infusion: 09/21/18 23:20 Dose: 0 mls/hr Documented by: [id number] Admin: 09/21/18 22:42 Dose: 999 mls/hr Documented by: [id number] Norepinephrine Bitartrate 8 mg (/ Dextrose) 508 mls @ 17.09 mls/hr IV .Q24H DAYSI; Protocol Stop: 10/21/18 23:14 Last Titration: 09/22/18 09:00 Dose: 0.03 mcg/kg/min, 10.3 mls/hr Documented by: [id number] Titration: 09/22/18 07:15 Dose: 0.05 mcg/kg/min, 17.1 mls/hr Documented by: [id number] Cosigned by: [id number] Admin: 09/21/18 23:27 Dose: 0.05 mcg/kg/min, 17.1 mls/hr Documented by: [id number] Cosigned by: [id number] Ceftriaxone Sodium 2,000 mg/ (Dextrose) 70 mls @ 100 mls/hr IV NOW STA Stop: 09/21/18 23:55 Last Infusion: 09/22/18 00:14 Dose: 0 mls/hr Documented by: [id number] Admin: 09/21/18 23:27 Dose: 100 mls/hr Documented by: [id number] Ranitidine HCl 50 mg/ Dextrose 102 mls @ 200 mls/hr IV Q8H [facility] Stop: 10/22/18 03:59 Last Infusion: 09/22/18 04:53 Dose: 0 mls/hr Documented by: [id number] Admin: 09/22/18 04:22 Dose: 200 mls/hr Documented by: [id number] Methylprednisolone (Solumedrol) 125 mg IV NOW STA Stop: 09/21/18 21:58 Last Admin: 09/21/18 22:05 Dose: 125 mg Documented by: [id number] Midazolam HCl (Versed) 2 mg IV NOW STA Stop: 09/21/18 22:36 Last Admin: 09/21/18 22:42 Dose: 1 mg Documented by: [id number] Midazolam HCl (Versed) Confirm Administered Dose 2 mg .ROUTE .STK-MED ONE Stop: 09/21/18 22:38 Last Admin: 09/21/18 22:42 Dose: Not Given Documented by: [id number] Midazolam HCl (Versed) 2 mg IV Q2H PRN PRN Reason: agitation/anxiety Stop: 10/21/18 22:57 Last Admin: 09/21/18 23:56 Dose: 1 mg Documented by: [id number] Admin: 09/21/18 23:49 Dose: 1 mg Documented by: [id number] Midazolam HCl (Versed) Confirm Administered Dose 2 mg .ROUTE .STK-MED ONE Stop: 09/22/18 00:49 Last Admin: 09/22/18 00:54 Dose: 2 mg Documented by: [id number] Miscellaneous (Patient's Height And/Or Weight Needed) 1 ea N/A Q30M [facility] Stop: 10/21/18 22:14 Last Admin: 09/22/18 03:41 Dose: Not Given Documented by: [id number] Admin: 09/22/18 03:40 Dose: Not Given Documented by: [id number] Admin: 09/22/18 03:40 Dose: Not Given Documented by: [id number] Admin: 09/22/18 03:40 Dose: Not Given Documented by: [id number] Admin: 09/22/18 01:38 Dose: 1 ea Documented by: [id number] Admin: 09/21/18 23:08 Dose: 1 ea Documented by: [id number] Propofol (Diprivan) Confirm Administered Dose 1,000 mg IV .[employer] ONE Stop: 09/21/18 21:58 Last Admin: 09/21/18 22:18 Dose: Not Given Documented by: [id number] Description This is a 21 electrode EEG with a single channel dedicated to limited EKG. The electrodes were placed in accordance with the International 10-20 system. There is a poorly organized low amplitude background rhythm that consists of a mix of alpha and theta frequencies. Photic stimulation is unremarkable. There is a prominent symmetric frontal beta rhythm seen throughout the study. There is no focal or lateralized slowing. There is no burst suppression or periodic pattern. No epileptiform abnormalities observed. Interpretation This is an abnormal EEG obtained in the comatose state and consistent with a moderate to severe encephalopathy. The prominent frontal beta rhythm is likely due to benzodiazepine effect. There is no evidence of seizure activity. Clinical Correlation Encephalopathy. No evidence of seizure activity.
[2018-09-22 11:14] LABS: INR 1.4 (0.9-1.1); Prothrombin Time 13.7 Seconds (9.0-12.0)
[2018-09-22 11:33] LABS: BUN Creatinine Ratio 14.3 (10-20); Calcium 8.4 mg/dl (8.5-10.1); Creatinine Clr Calc Pharmacy 34.4 ml/min; Est GFR (African American) 37.9; Est GFR (Non-African American) 32.7; Magnesium 2.2 mg/dl (1.8-2.4); Phosphorus 2.9 mg/dl (2.5-4.9); Potassium 3.7 mmol/L (3.5-5.1)
[2018-09-22 11:55] LABS: Partial Thromboplastin Ratio > 5.1
[2018-09-22 11:56] LABS: Partial Thromboplastin Time > 139.0 Seconds (21.0-31.0)
--- NOTE | 2018-09-22 12:29 | Hospitalist Progress Note ---
Date of Service September 22, 2018 Assessment & Plan (1) Cardiac arrest: Likely 20-30 minutes of CPR prior to ROSC in the ED. At least 15 minutes of CPR prior to EMT arrival at home. Unclear inciting event, though his significant cardiac history with negative troponins point toward away from an i schemic event and possibly a ventricular arrhythmia that had devolved prior to being attached to pads. - Cooling protocol, ventilator support, and hemodynamic support per ICU team - Neurology following to assess for recovery - Could consider palliative care consult (2) Anoxic encephalopathy: ROSC after 20-30 minutes of CPR. - Being assessed by neurology. - See above (3) CAD (coronary artery disease): Prior cath in 07/2018 without ability to intervene. - Troponins negative x 3 - Cardiology following (4) HTN (hypertension), benign: On pressor support at present. - Holding most oral meds (5) DVT prophylaxis: On heparin gtt per ICU team Subjective Intubated and sedated on cooling protocol. Review of Systems Review of Systems: Unobtainable due to endotracheal tube Physical Exam Constitutional: WD/WN, vitals as above + acute distress Eyes: EOM intact bilaterally; no conjunctival abnormality ENMT: Intbuated Neck: trachea midline, no thyromegaly normal visual inspection Respiratory: normal respiratory effort, lungs clear to auscultation no respiratory distress Mechanically ventilated Cardiovascular: RRR, no murmur, no edema Gastrointestinal (Abdomen): Inspection/Auscultation: abdomen normal to inspection; abdomen not distended Musculoskeletal: no cyanosis or clubbing, extremities motor strength 5/5 Skin: no rashes, warm and dry Neurologic: moves all extremities and + obtunded; + not awake Psychiatric: Orientation: alert, oriented to person and cooperative Results & Data Vital Signs (Past 12 Hours) Vital Signs Temp Temp Temp Pulse Pulse Resp BP 09/22/18 11:10 47 L 12 09/22/18 11:00 47 L 09/22/18 10:00 48 L 12 111/59 L 09/22/18 09:00 49 L 12 118/67 09/22/18 08:30 12 09/22/18 08:00 09/22/18 07:22 79 16 09/22/18 07:00 32 C L 32 C L 45 L 16 09/22/18 06:00 32.2 C L 32.1 C L 48 L 16 09/22/18 05:30 09/22/18 05:03 112 H 16 09/22/18 05:00 32 C L 32 C L 56 L 16 09/22/18 04:00 32.4 C L 32.7 C L 54 L 17 09/22/18 03:00 33.1 C L 34.1 C L 51 L 18 09/22/18 02:00 34.4 C L 51 L 16 09/22/18 01:50 54 L 16 09/22/18 01:00 34.7 C L 56 L 16 09/22/18 00:30 34.7 C L 60 16 BP BP Pulse Ox 09/22/18 11:10 100 09/22/18 11:00 96/50 L 105/60 100 09/22/18 10:00 108/55 L 111/59 L 100 09/22/18 09:00 122/62 118/67 100 09/22/18 08:30 09/22/18 08:00 119/59 L 122/66 100 09/22/18 07:22 96 09/22/18 07:00 118/59 L 103/52 L 100 09/22/18 06:00 109/54 L 109/63 100 09/22/18 05:30 105/53 L 110/61 09/22/18 05:03 96 09/22/18 05:00 95/48 L 76/58 L 100 09/22/18 04:00 93/47 L 97/62 L 100 09/22/18 03:00 104/51 L 98/45 L 100 09/22/18 02:00 104/63 100 09/22/18 01:50 97 09/22/18 01:00 107/68 100 09/22/18 00:30 100/59 L 98 PG Care Time/CCT Total # of Minutes Spent Total Time Spent with Patient: Total time spent is greater than 50% in coordination of care (as documented) at patient's floor/unit and/or counseling patient: (1) CAD (coronary artery disease) Coronary Disease-Associated Artery/Lesion type: [place] artery [place] vs. transplanted heart: [place] heart Associated angina: with unstable angina Qualified Code(s): I25.110 - Atherosclerotic heart disease of [place] coronary artery with unstable angina pectoris
[2018-09-22 13:23] LABS: Partial Thromboplastin Ratio > 5.1
[2018-09-22 13:26] LABS: Partial Thromboplastin Time > 139.0 Seconds (21.0-31.0)
[2018-09-22 14:40] LABS: iSTAT Arterial Blood Gas HCO3 24 meg/L (19-24); iSTAT Arterial Blood Gas pCO2 40 mmHg (35-46); iSTAT Arterial Blood Gas pH 7.38 (7.35-7.45); iSTAT Carbon Dioxide 25 mEq/l (24-31); iSTAT FiO2 21 %; iSTAT Site Art Line
[2018-09-22 14:43] LABS: Hematocrit (blood only) 28.2 % (42-52); Hemoglobin 9.4 g/dL (14.0-18.0); Immature Granulocytes # (auto) 0.01 K/uL (0.00-0.02); Immature Granulocytes % (auto) 0.2 %; Lymphocytes # (auto) 0.72 K/uL (1.2-3.4); Lymphocytes % (auto) 13.4 %; Mean Corpuscular Hgb Conc 33.3 g/dL (32-36); Mean Platelet Volume 9.3 fL (7.4-10.4); Monocytes # (auto) 0.13 K/uL (0.11-0.59); Monocytes % (auto) 2.4 %; Neutrophils # (auto) 4.53 K/uL (1.4-6.5); Platelet Count 194 K/uL (130-400); RDW Coefficient of Variation 16.2 % (11.5-14.5); RDW Standard Deviation 53.3 fL (36.4-46.3); Red Blood Count 3.17 M/uL (4.7-6.1); White Blood Count 5.39 K/uL (4.8-10.8)
[2018-09-22 14:53] LABS: INR 1.3 (0.9-1.1)
[2018-09-22 15:03] LABS: Partial Thromboplastin Ratio 3.8
[2018-09-22 16:52] LABS: Partial Thromboplastin Ratio 2.4
[2018-09-22 17:51] LABS: Partial Thromboplastin Time 63.8 Seconds (21.0-31.0)
[2018-09-22 19:03] LABS: Hematocrit (blood only) 28.9 % (42-52); Hemoglobin 9.5 g/dL (14.0-18.0); Lymphocytes # (auto) 0.78 K/uL (1.2-3.4); Lymphocytes % (auto) 13.1 %; Mean Corpuscular Hgb Conc 32.9 g/dL (32-36); Mean Corpuscular Volume 89.5 fL (80-100); Mean Platelet Volume 9.2 fL (7.4-10.4); Monocytes # (auto) 0.18 K/uL (0.11-0.59); Neutrophils % (auto) 83.9 %; Platelet Count 206 K/uL (130-400); RDW Coefficient of Variation 16.1 % (11.5-14.5); RDW Standard Deviation 52.7 fL (36.4-46.3); Red Blood Count 3.23 M/uL (4.7-6.1); White Blood Count 5.96 K/uL (4.8-10.8)
[2018-09-22 19:12] LABS: INR 1.3 (0.9-1.1)
[2018-09-22 19:21] LABS: BUN Creatinine Ratio 13.9 (10-20); Calcium 8.2 mg/dl (8.5-10.1); Creatinine Clr Calc Pharmacy 34.2 ml/min; Est GFR (African American) 37.7; Est GFR (Non-African American) 32.5; Magnesium 2.3 mg/dl (1.8-2.4); Potassium 3.8 mmol/L (3.5-5.1)
[2018-09-22 19:22] LABS: Phosphorus 3.1 mg/dl (2.5-4.9)
[2018-09-22 20:01] LABS: iSTAT Arterial Blood Gas HCO3 24 meg/L (19-24); iSTAT Arterial Blood Gas pCO2 44 mmHg (35-46); iSTAT Arterial Blood Gas pH 7.34 (7.35-7.45); iSTAT Carbon Dioxide 25 mEq/l (24-31); iSTAT Site Art Line
[2018-09-22] MEDS: ATORVASTATIN 40 MG TAB PO SCH (21:23)
[2018-09-22] MEDS: cefTRIAXone SODIUM 2,000 MG in DEXTROSE 5% 50 ML IV SCH (21:24)
[2018-09-22 23:42] LABS: Hematocrit (blood only) 27.9 % (42-52); Hemoglobin 9.4 g/dL (14.0-18.0); Immature Granulocytes # (auto) 0.01 K/uL (0.00-0.02); Immature Granulocytes % (auto) 0.2 %; Lymphocytes # (auto) 0.78 K/uL (1.2-3.4); Lymphocytes % (auto) 12.1 %; Mean Corpuscular Hgb Conc 33.7 g/dL (32-36); Mean Platelet Volume 9.2 fL (7.4-10.4); Monocytes # (auto) 0.19 K/uL (0.11-0.59); Neutrophils # (auto) 5.44 K/uL (1.4-6.5); Neutrophils % (auto) 84.7 %; Platelet Count 184 K/uL (130-400); RDW Coefficient of Variation 16.3 % (11.5-14.5); RDW Standard Deviation 52.6 fL (36.4-46.3); Red Blood Count 3.17 M/uL (4.7-6.1); White Blood Count 6.42 K/uL (4.8-10.8)
[2018-09-22 23:53] LABS: INR 1.3 (0.9-1.1); Prothrombin Time 13.4 Seconds (9.0-12.0)
[2018-09-23 00:02] LABS: BUN Creatinine Ratio 14.7 (10-20); Calcium 8.2 mg/dl (8.5-10.1); Est GFR (African American) 37.4; Est GFR (Non-African American) 32.3; Magnesium 2.3 mg/dl (1.8-2.4); Potassium 3.9 mmol/L (3.5-5.1)
[2018-09-23 00:03] LABS: Phosphorus 3.5 mg/dl (2.5-4.9)
[2018-09-23 00:41] LABS: Partial Thromboplastin Ratio > 5.1
[2018-09-23 00:51] LABS: Partial Thromboplastin Time > 139.0 Seconds (21.0-31.0)
[2018-09-23] MEDS: Heparin Adult STANDARD Wt-Based Dextrose 5% 25,000 units/500 mL IV SCH ×2 (01:22→05:14)
[2018-09-23 01:47] LABS: Partial Thromboplastin Ratio > 5.1
[2018-09-23 01:50] LABS: Partial Thromboplastin Time > 139.0 Seconds (21.0-31.0)
[2018-09-23 02:23] LABS: iSTAT Arterial Blood Gas HCO3 25 meg/L (19-24); iSTAT Arterial Blood Gas pCO2 40 mmHg (35-46); iSTAT Arterial Blood Gas pH 7.39 (7.35-7.45); iSTAT Carbon Dioxide 26 mEq/l (24-31); iSTAT Site Art Line
[2018-09-23 02:33] LABS: Hematocrit (blood only) 27.5 % (42-52); Hemoglobin 9.1 g/dL (14.0-18.0); Immature Granulocytes # (auto) 0.01 K/uL (0.00-0.02); Immature Granulocytes % (auto) 0.2 %; Lymphocytes # (auto) 0.71 K/uL (1.2-3.4); Lymphocytes % (auto) 10.8 %; Mean Corpuscular Hgb Conc 33.1 g/dL (32-36); Mean Platelet Volume 9.5 fL (7.4-10.4); Monocytes # (auto) 0.23 K/uL (0.11-0.59); Monocytes % (auto) 3.5 %; Neutrophils # (auto) 5.62 K/uL (1.4-6.5); Neutrophils % (auto) 85.5 %; Platelet Count 191 K/uL (130-400); RDW Coefficient of Variation 16.2 % (11.5-14.5); RDW Standard Deviation 52.6 fL (36.4-46.3); Red Blood Count 3.09 M/uL (4.7-6.1); White Blood Count 6.57 K/uL (4.8-10.8)
[2018-09-23 02:53] LABS: INR 1.3 (0.9-1.1); Partial Thromboplastin Ratio 5.1
[2018-09-23 02:56] LABS: Creatinine Clr Calc Pharmacy 34.7 ml/min; Est GFR (African American) 38.4; Est GFR (Non-African American) 33.2; Magnesium 2.2 mg/dl (1.8-2.4); Potassium 3.6 mmol/L (3.5-5.1)
[2018-09-23 02:57] LABS: Phosphorus 3.7 mg/dl (2.5-4.9)
[2018-09-23 03:46] LABS: Partial Thromboplastin Ratio 3.7
[2018-09-23 03:58] LABS: Partial Thromboplastin Time 100.3 Seconds (21.0-31.0)
[2018-09-23 04:47] LABS: Partial Thromboplastin Ratio 2.7
[2018-09-23] MEDS: NORMOSOL-R 1,000 ML IV SCH ×2 (05:13→19:11)
[2018-09-23] MEDS: FAMOTIDINE 20 MG in SYRINGE 3 ML IV SCH (05:13)
--- NOTE | 2018-09-23 07:08 | XRay Report ---
XR chest 1V portable HISTORY: 82 years-old Male cardiac arrest acute cardiac arrest COMPARISON: Chest radiograph 09/22/2018 TECHNIQUE: Portable AP view of the chest FINDINGS: Cardiac silhouette is enlarged, unchanged. Endotracheal tube overlies the midline, 5.3 cm superior to the todd. Enteric tube courses below the diaphragm, distal tip projected superiorly within the exp ected location of the gastric fundus. Prior median sternotomy with surgical clips suggestive of prior CABG. No pneumothorax. Calcification of the thoracic aortic arch. Small pleural effusions with bibas ilar opacities. Pulmonary vascular congestion with mildly improved pulmonary edema. Degenerative corbin ges of the shoulders and spine. IMPRESSION: 1. Cardiomegaly with mildly improved pulmonary edema. 2. Satisfactory positioning of life-support lines and tubes as above. 3. Small pleural effusions with bibasilar opacities. The above report was generated using voice recognition software. It may contain grammatical, syntax o r spelling errors. Electronically signed by: Nic Dao M.D. 09/23/2018 7:07 AM
--- NOTE | 2018-09-23 07:40 | Critical Care Progress Note ---
Date of Service September 23, 2018 Assessment & Plan (1) Admitted to intensive care unit: Reason Critically Ill: ROSC after cardiac arrest and currently in therapeutic hypothermia protocol. PLAN: NEURO -Therapeutic hypothermia completed. Started rewarming -Improving anoxic encephalopathy. Pt is more alert and is able to follow simple commands -No evidence of seizure activity on EEG -Neuro: prognosis for recovery is improved compared with yesterday. Consider a repeat CT head or MRI brain for further evaluation of observed left frontotemporal slowing on EEG PULM -Liberated from ventilater. Sating well on RA. -Bilateral pleural effusions- consented for thoracentesis -Aspiration pneumonitis- s/p bronch. NGTD. Cont Rocephin 1 g every 24 -KAY CARDIO -Cause of cardiac arrest unclear. History of severe CAD with multiple admissions this year with troponin elevations. Cardiac cath in July without ability to intervene. Trops negative. ECHO reviewed. -HTN- off pressor support now. Holding home meds -Adding Brilinta 2/2 hypothermia and h/o Plavix use. Can switch back to plavix post cooling -CAD- Cont atorvastatin. Will add ASA Fluids/Renal: -CKD stage III- Elevated creatinine. Cont trend -dc'd Normosol ID: -Concern for aspiration, continue ceftriaxone. d/c antibiotics empirically after 48 hrs GI/Nutrition: -CT Abd: Gallbladder wall thickening -Normal LFT's. Will cont trend, may require RUQ U/S in near future -Start trickle feeds HEME -Anemia of chronic kidney disease -Stable H/H. No concerns for acute bleeding. Cont trend ENDO -A1C 5.8 -ICU hyperglycemia protocol. Elevated BSG likely 2/2 stress LINES: A-line, R IJ Central venous access, PIV x3 DVT prophylaxis: Heparin Full Code DISPO: ICU Supervising Physician Co-Signing Physician Notes Dr. Bloom was resident physician during care of patient. I separately evaluated patient for weber portions of the history and the exam. I was present during the critical portion of medical decision making, and I discussed the case with the resident. I generally agree with the findings and plan. Patient was discussed in multidisciplinary rounds During sedation vacation, patient became much more alert was able to follow complex commands and was successfully liberated from the ventilator. I advised the patient he had a cardiac arrest and his son provided CPR, he responded "I am glad I have such a good son" Continue rewarming process and avoid hyperthermia Discontinue antibiotics after today minimal oxygen requirement Heparin infusion to time-out at midnight then start heparin DVT prophylaxis tomorrow morning I have personally spent 40 minutes of critical care time in the direct management of this patient. This is a life/limb threatening event. This includes time spent evaluating patient, direct bedside care, chart review, placing orders, interpretation of diagnostic studies, discussion with consultants, patient, and/or family members regarding treatment decisions, as well as other required patient management activities. This time is exclusive of all separately billable procedures, and teaching time and separate from and in addition to any other critical care service time. Subjective 82 y/o M found this morning. Extubated and tolerating RA well. This AM, still had unintelligible responses, but was able to follow commands well. Re-warming protocol initiated. No other acute concerns. Review of Systems Review of Systems: All systems reviewed & are unremarkable except as noted in HPI & below Physical Exam Constitutional: WD/WN, vitals as above ENMT: external ear and nose normal, oropharynx normal Respiratory: normal respiratory effort, lungs clear to auscultation Cardiovascular: RRR, no murmur, no edema Gastrointestinal (Abdomen): normal bowel sounds, soft, nontender, no hepatosplenomegaly Skin: no rashes, warm and dry Results & Data Vital Signs (Past 12 Hours) Vital Signs Temp Temp Pulse Pulse Resp BP BP 09/23/18 07:00 33.1 C L 33 C L 49 L 12 103/50 L 09/23/18 06:00 32.6 C L 32.4 C L 48 L 12 114/55 L 116/63 09/23/18 05:00 32.1 C L 32.1 C L 46 L 12 109/55 L 113/57 L 09/23/18 04:00 32.1 C L 32 C L 47 L 12 118/60 105/56 L 09/23/18 03:00 32.1 C L 32 C L 49 L 12 106/54 L 105/60 09/23/18 02:32 44 L 103/52 L 105/56 L 09/23/18 02:14 45 L 12 09/23/18 02:00 32.1 C L 32 C L 38 L 12 93/47 L 104/56 L 09/23/18 01:00 32 C L 32.1 C L 45 L 12 98/50 L 87/53 L 09/23/18 00:00 32.1 C L 32 C L 49 L 12 99/52 L 105/46 L 09/22/18 23:00 32.1 C L 32 C L 46 L 12 105/55 L 105/46 L 09/22/18 22:42 43 L 12 09/22/18 22:00 32.1 C L 32 C L 43 L 13 108/55 L 111/64 09/22/18 21:00 32.1 C L 32 C L 49 L 12 113/59 L 116/65 09/22/18 20:00 32 C L 32 C L 45 L 12 106/55 L 110/60 Pulse Ox 09/23/18 07:00 100 09/23/18 06:00 100 09/23/18 05:00 100 09/23/18 04:00 100 09/23/18 03:00 100 09/23/18 02:32 09/23/18 02:14 100 09/23/18 02:00 100 09/23/18 01:00 100 09/23/18 00:00 100 09/22/18 23:00 100 09/22/18 22:42 100 09/22/18 22:00 100 09/22/18 21:00 100 09/22/18 20:00 100 Laboratory Results Laboratory Results - last 24 hr 09/22/18 09/22/18 09/22/18 02:59 03:56 08:03 WBC RBC Hgb Hct MCV MCH MCHC RDW Std Deviation RDW Coeff of Sandra Plt Count MPV Immature Gran % (Auto) Neut % (Auto) Lymph % (Auto) Wolfe % (Auto) Eos % (Auto) Baso % (Auto) Immature Gran # (Auto) Neut # (Auto) Lymph # (Auto) Wolfe # (Auto) Eos # (Auto) Baso # (Auto) PT INR APTT PTT Ratio Specimen Type Cancelled Cancelled Sample Site Cancelled Cancelled Patient Temperature Cancelled Cancelled POC pH Cancelled Cancelled POC pCO2 Cancelled Cancelled POC pO2 Cancelled Cancelled POC HCO3 Cancelled Cancelled POC Total CO2 Cancelled Cancelled POC Base Excess Cancelled Cancelled O2 Sat Pulse Oximetry Cancelled Cancelled ABG pH (Temp Correct) Cancelled Cancelled ABG pCO2 (Temp Corrct Cancelled Cancelled POC ABG pO2 at Pt Temp Cancelled Cancelled POC ABG O2 Sat Cancelled Cancelled Gunner Test Cancelled Cancelled Set Respiration Rate Cancelled Cancelled O2 Delivery Device Cancelled Cancelled POC O2 Rate Cancelled Cancelled Minute Ventilation Cancelled Cancelled Vent Mode Cancelled Cancelled Vent Setting Cancelled Cancelled Spontaneous Rate Cancelled Cancelled FiO2 (liters per min) Cancelled Cancelled POC FiO2 Cancelled Cancelled Tidal Volume Cancelled Cancelled Spontaneous Tidal Vol Cancelled Cancelled End Tidal CO2 Cancelled Cancelled PEEP Cancelled Cancelled High PEEP Setting Cancelled Cancelled Low PEEP Setting Cancelled Cancelled Pressure Support Cancelled Cancelled POC Pressure Suppt Cancelled Cancelled Pressure Support Vent Cancelled Cancelled Pressure High Cancelled Cancelled Time High Cancelled Cancelled Time Low Cancelled Cancelled EPAP Cancelled Cancelled IPAP Cancelled Cancelled Sodium Potassium Chloride Carbon Dioxide Anion Gap BUN Creatinine Est Cr Clr Drug Dosing Est GFR ( Amer) Est GFR (Non-Af Amer) BUN/Creatinine Ratio Glucose POC Glucose (other) Calcium Ionized Calcium Phosphorus Magnesium GGT 29 09/22/18 09/22/18 09/22/18 14:26 18:12 18:50 WBC RBC Hgb Hct MCV MCH MCHC RDW Std Deviation RDW Coeff of Sandra Plt Count MPV Immature Gran % (Auto) Neut % (Auto) Lymph % (Auto) Wolfe % (Auto) Eos % (Auto) Baso % (Auto) Immature Gran # (Auto) Neut # (Auto) Lymph # (Auto) Wolfe # (Auto) Eos # (Auto) Baso # (Auto) PT INR APTT PTT Ratio Specimen Type Cancelled Sample Site Cancelled Patient Temperature Cancelled POC pH Cancelled POC pCO2 Cancelled POC pO2 Cancelled POC HCO3 Cancelled POC Total CO2 Cancelled POC Base Excess Cancelled O2 Sat Pulse Oximetry Cancelled ABG pH (Temp Correct) Cancelled ABG pCO2 (Temp Corrct Cancelled POC ABG pO2 at Pt Temp Cancelled POC ABG O2 Sat Cancelled Gunner Test Cancelled Set Respiration Rate Cancelled O2 Delivery Device Cancelled POC O2 Rate Cancelled Minute Ventilation Cancelled Vent Mode Cancelled Vent Setting Cancelled Spontaneous Rate Cancelled FiO2 (liters per min) Cancelled POC FiO2 Cancelled Tidal Volume Cancelled Spontaneous Tidal Vol Cancelled End Tidal CO2 Cancelled PEEP Cancelled High PEEP Setting Cancelled Low PEEP Setting Cancelled Pressure Support Cancelled POC Pressure Suppt Cancelled Pressure Support Vent Cancelled Pressure High Cancelled Time High Cancelled Time Low Cancelled EPAP Cancelled IPAP Cancelled Sodium 137 Potassium 3.8 Chloride 103 Carbon Dioxide 25 Anion Gap 9.0 BUN 26 H Creatinine 1.87 H Est Cr Clr Drug Dosing 34.2 Est GFR ( Amer) 37.7 Est GFR (Non-Af Amer) 32.5 BUN/Creatinine Ratio 13.9 Glucose 171 H POC Glucose (other) 172 H Calcium 8.2 L Ionized Calcium Phosphorus 3.1 Magnesium 2.3 GGT 09/22/18 09/22/18 09/22/18 18:50 18:50 19:47 WBC 5.96 RBC 3.23 L Hgb 9.5 L Hct 28.9 L MCV 89.5 MCH 29.4 MCHC 32.9 RDW Std Deviation 52.7 H RDW Coeff of Sandra 16.1 H Plt Count 206 MPV 9.2 Immature Gran % (Auto) 0.0 Neut % (Auto) 83.9 Lymph % (Auto) 13.1 Wolfe % (Auto) 3.0 Eos % (Auto) 0.0 Baso % (Auto) 0.0 Immature Gran # (Auto) 0.00 Neut # (Auto) 5.00 Lymph # (Auto) 0.78 L Wolfe # (Auto) 0.18 Eos # (Auto) 0.00 Baso # (Auto) 0.00 PT 13.0 H INR 1.3 H APTT PTT Ratio Specimen Type Sample Site Art Line Patient Temperature POC pH 7.34 L POC pCO2 44 POC pO2 90 POC HCO3 24 POC Total CO2 25 POC Base Excess -2.0 O2 Sat Pulse Oximetry ABG pH (Temp Correct) ABG pCO2 (Temp Corrct POC ABG pO2 at Pt Temp POC ABG O2 Sat 96.0 H Gunner Test NA Set Respiration Rate O2 Delivery Device Ventilator POC O2 Rate 12 Minute Ventilation 4.8 Vent Mode Vent Setting Spontaneous Rate FiO2 (liters per min) POC FiO2 Tidal Volume 450 Spontaneous Tidal Vol End Tidal CO2 PEEP 8 High PEEP Setting Low PEEP Setting Pressure Support POC Pressure Suppt Pressure Support Vent Pressure High Time High Time Low EPAP IPAP Sodium Potassium Chloride Carbon Dioxide Anion Gap BUN Creatinine Est Cr Clr Drug Dosing Est GFR ( Amer) Est GFR (Non-Af Amer) BUN/Creatinine Ratio Glucose POC Glucose (other) Calcium Ionized Calcium Phosphorus Magnesium GGT 09/22/18 09/22/18 09/22/18 19:47 23:32 23:32 WBC 6.42 RBC 3.17 L Hgb 9.4 L Hct 27.9 L MCV 88.0 MCH 29.7 MCHC 33.7 RDW Std Deviation 52.6 H RDW Coeff of Sandra 16.3 H Plt Count 184 MPV 9.2 Immature Gran % (Auto) 0.2 Neut % (Auto) 84.7 Lymph % (Auto) 12.1 Wolfe % (Auto) 3.0 Eos % (Auto) 0.0 Baso % (Auto) 0.0 Immature Gran # (Auto) 0.01 Neut # (Auto) 5.44 Lymph # (Auto) 0.78 L Wolfe # (Auto) 0.19 Eos # (Auto) 0.00 Baso # (Auto) 0.00 PT INR APTT PTT Ratio Specimen Type Cancelled Sample Site Cancelled Patient Temperature Cancelled POC pH Cancelled POC pCO2 Cancelled POC pO2 Cancelled POC HCO3 Cancelled POC Total CO2 Cancelled POC Base Excess Cancelled O2 Sat Pulse Oximetry Cancelled ABG pH (Temp Correct) Cancelled ABG pCO2 (Temp Corrct Cancelled POC ABG pO2 at Pt Temp Cancelled POC ABG O2 Sat Cancelled Gunner Test Cancelled Set Respiration Rate Cancelled O2 Delivery Device Cancelled POC O2 Rate Cancelled Minute Ventilation Cancelled Vent Mode Cancelled Vent Setting Cancelled Spontaneous Rate Cancelled FiO2 (liters per min) Cancelled POC FiO2 Cancelled Tidal Volume Cancelled Spontaneous Tidal Vol Cancelled End Tidal CO2 Cancelled PEEP Cancelled High PEEP Setting Cancelled Low PEEP Setting Cancelled Pressure Support Cancelled POC Pressure Suppt Cancelled Pressure Support Vent Cancelled Pressure High Cancelled Time High Cancelled Time Low Cancelled EPAP Cancelled IPAP Cancelled Sodium 137 Potassium 3.9 Chloride 103 Carbon Dioxide 24 Anion Gap 9.0 BUN 28 H Creatinine 1.88 H Est Cr Clr Drug Dosing 34.0 Est GFR ( Amer) 37.4 Est GFR (Non-Af Amer) 32.3 BUN/Creatinine Ratio 14.7 Glucose 180 H POC Glucose (other) Calcium 8.2 L Ionized Calcium Phosphorus 3.5 Magnesium 2.3 GGT 09/22/18 09/22/1809/22/19 23:32 23:38 23:38 WBC RBC Hgb Hct MCV MCH MCHC RDW Std Deviation RDW Coeff of Sandra Plt Count MPV Immature Gran % (Auto) Neut % (Auto) Lymph % (Auto) Wolfe % (Auto) Eos % (Auto) Baso % (Auto) Immature Gran # (Auto) Neut # (Auto) Lymph # (Auto) Wolfe # (Auto) Eos # (Auto) Baso # (Auto) PT 13.4 H INR 1.3 H APTT > 139.0 H* PTT Ratio > 5.1 Specimen Type Sample Site Patient Temperature POC pH POC pCO2 POC pO2 POC HCO3 POC Total CO2 POC Base Excess O2 Sat Pulse Oximetry ABG pH (Temp Correct) ABG pCO2 (Temp Corrct POC ABG pO2 at Pt Temp POC ABG O2 Sat Gunner Test Set Respiration Rate O2 Delivery Device POC O2 Rate Minute Ventilation Vent Mode Vent Setting Spontaneous Rate FiO2 (liters per min) POC FiO2 Tidal Volume Spontaneous Tidal Vol End Tidal CO2 PEEP High PEEP Setting Low PEEP Setting Pressure Support POC Pressure Suppt Pressure Support Vent Pressure High Time High Time Low EPAP IPAP Sodium Potassium Chloride Carbon Dioxide Anion Gap BUN Creatinine Est Cr Clr Drug Dosing Est GFR ( Amer) Est GFR (Non-Af Amer) BUN/Creatinine Ratio Glucose POC Glucose (other) 174 H Calcium Ionized Calcium Phosphorus Magnesium GGT 09/23/18 09/23/18 09/23/18 01:18 02:09 02:09 WBC RBC Hgb Hct MCV MCH MCHC RDW Std Deviation RDW Coeff of Sandra Plt Count MPV Immature Gran % (Auto) Neut % (Auto) Lymph % (Auto) Wolfe % (Auto) Eos % (Auto) Baso % (Auto) Immature Gran # (Auto) Neut # (Auto) Lymph # (Auto) Wolfe # (Auto) Eos # (Auto) Baso # (Auto) PT INR APTT > 139.0 H* PTT Ratio > 5.1 Specimen Type Cancelled Sample Site Art Line Cancelled Patient Temperature Cancelled POC pH 7.39 Cancelled POC pCO2 40 Cancelled POC pO2 90 Cancelled POC HCO3 25 H Cancelled POC Total CO2 26 Cancelled POC Base Excess 0.0 Cancelled O2 Sat Pulse Oximetry Cancelled ABG pH (Temp Correct) Cancelled ABG pCO2 (Temp Corrct Cancelled POC ABG pO2 at Pt Temp Cancelled POC ABG O2 Sat 97.0 H Cancelled Gunner Test NA Cancelled Set Respiration Rate Cancelled O2 Delivery Device Ventilator Cancelled POC O2 Rate 12 Cancelled Minute Ventilation 4.7 Cancelled Vent Mode Cancelled Vent Setting Cancelled Spontaneous Rate Cancelled FiO2 (liters per min) Cancelled POC FiO2 Cancelled Tidal Volume 450 Cancelled Spontaneous Tidal Vol Cancelled End Tidal CO2 Cancelled PEEP 8 Cancelled High PEEP Setting Cancelled Low PEEP Setting Cancelled Pressure Support Cancelled POC Pressure Suppt Cancelled Pressure Support Vent Cancelled Pressure High Cancelled Time High Cancelled Time Low Cancelled EPAP Cancelled IPAP Cancelled Sodium Potassium Chloride Carbon Dioxide Anion Gap BUN Creatinine Est Cr Clr Drug Dosing Est GFR ( Amer) Est GFR (Non-Af Amer) BUN/Creatinine Ratio Glucose POC Glucose (other) Calcium Ionized Calcium Phosphorus Magnesium GGT 09/23/18 09/23/18 09/23/18 02:22 02:22 02:22 WBC 6.57 RBC 3.09 L Hgb 9.1 L Hct 27.5 L MCV 89.0 MCH 29.4 MCHC 33.1 RDW Std Deviation 52.6 H RDW Coeff of Sandra 16.2 H Plt Count 191 MPV 9.5 Immature Gran % (Auto) 0.2 Neut % (Auto) 85.5 Lymph % (Auto) 10.8 Wolfe % (Auto) 3.5 Eos % (Auto) 0.0 Baso % (Auto) 0.0 Immature Gran # (Auto) 0.01 Neut # (Auto) 5.62 Lymph # (Auto) 0.71 L Wolfe # (Auto) 0.23 Eos # (Auto) 0.00 Baso # (Auto) 0.00 PT 13.0 H INR 1.3 H APTT 137.0 H* PTT Ratio 5.1 Specimen Type Sample Site Patient Temperature POC pH POC pCO2 POC pO2 POC HCO3 POC Total CO2 POC Base Excess O2 Sat Pulse Oximetry ABG pH (Temp Correct) ABG pCO2 (Temp Corrct POC ABG pO2 at Pt Temp POC ABG O2 Sat Gunner Test Set Respiration Rate O2 Delivery Device POC O2 Rate Minute Ventilation Vent Mode Vent Setting Spontaneous Rate FiO2 (liters per min) POC FiO2 Tidal Volume Spontaneous Tidal Vol End Tidal CO2 PEEP High PEEP Setting Low PEEP Setting Pressure Support POC Pressure Suppt Pressure Support Vent Pressure High Time High Time Low EPAP IPAP Sodium 136 Potassium 3.6 Chloride 103 Carbon Dioxide 26 Anion Gap 7.0 BUN 28 H Creatinine 1.84 H Est Cr Clr Drug Dosing 34.7 Est GFR ( Amer) 38.4 Est GFR (Non-Af Amer) 33.2 BUN/Creatinine Ratio 15.0 Glucose 161 H POC Glucose (other) Calcium 8.0 L Ionized Calcium Phosphorus 3.7 Magnesium 2.2 GGT 09/23/18 09/23/18 09/23/18 03:08 04:20 05:48 WBC RBC Hgb Hct MCV MCH MCHC RDW Std Deviation RDW Coeff of Sandar Plt Count MPV Immature Gran % (Auto) Neut % (Auto) Lymph % (Auto) Wolfe % (Auto) Eos % (Auto) Baso % (Auto) Immature Gran # (Auto) Neut # (Auto) Lymph # (Auto) Wolfe # (Auto) Eos # (Auto) Baso # (Auto) PT INR APTT 100.3 H* 74.0 H* PTT Ratio 3.7 2.7 Specimen Type Sample Site Patient Temperature POC pH POC pCO2 POC pO2 POC HCO3 POC Total CO2 POC Base Excess O2 Sat Pulse Oximetry ABG pH (Temp Correct) ABG pCO2 (Temp Corrct POC ABG pO2 at Pt Temp POC ABG O2 Sat Gunner Test Set Respiration Rate O2 Delivery Device POC O2 Rate Minute Ventilation Vent Mode Vent Setting Spontaneous Rate FiO2 (liters per min) POC FiO2 Tidal Volume Spontaneous Tidal Vol End Tidal CO2 PEEP High PEEP Setting Low PEEP Setting Pressure Support POC Pressure Suppt Pressure Support Vent Pressure High Time High Time Low EPAP IPAP Sodium Potassium Chloride Carbon Dioxide Anion Gap BUN Creatinine Est Cr Clr Drug Dosing Est GFR ( Amer) Est GFR (Non-Af Amer) BUN/Creatinine Ratio Glucose POC Glucose (other) 160 H Calcium Ionized Calcium Phosphorus Magnesium GGT 09/23/18 09/23/18 09/23/18 07:27 07:27 07:27 WBC 6.52 RBC 3.09 L Hgb 9.0 L Hct 27.0 L MCV 87.4 MCH 29.1 MCHC 33.3 RDW Std Deviation 52.2 H RDW Coeff of Sandra 16.3 H Plt Count 199 MPV 9.5 Immature Gran % (Auto) 0.2 Neut % (Auto) 87.4 Lymph % (Auto) 9.2 Wolfe % (Auto) 3.2 Eos % (Auto) 0.0 Baso % (Auto) 0.0 Immature Gran # (Auto) 0.01 Neut # (Auto) 5.70 Lymph # (Auto) 0.60 L Wolfe # (Auto) 0.21 Eos # (Auto) 0.00 Baso # (Auto) 0.00 PT 12.5 H INR 1.2 H APTT PTT Ratio Specimen Type Sample Site Patient Temperature POC pH POC pCO2 POC pO2 POC HCO3 POC Total CO2 POC Base Excess O2 Sat Pulse Oximetry ABG pH (Temp Correct) ABG pCO2 (Temp Corrct POC ABG pO2 at Pt Temp POC ABG O2 Sat Gunner Test Set Respiration Rate O2 Delivery Device POC O2 Rate Minute Ventilation Vent Mode Vent Setting Spontaneous Rate FiO2 (liters per min) POC FiO2 Tidal Volume Spontaneous Tidal Vol End Tidal CO2 PEEP High PEEP Setting Low PEEP Setting Pressure Support POC Pressure Suppt Pressure Support Vent Pressure High Time High Time Low EPAP IPAP Sodium 137 Potassium 3.5 Chloride 103 Carbon Dioxide 24 Anion Gap 10.0 BUN 29 H Creatinine 1.85 H Est Cr Clr Drug Dosing 34.9 Est GFR ( Amer) 38.2 Est GFR (Non-Af Amer) 32.9 BUN/Creatinine Ratio 15.6 Glucose 157 H POC Glucose (other) Calcium 8.3 L Ionized Calcium Phosphorus 3.7 Magnesium 2.3 GGT 09/23/18 09/23/18 09/23/18 08:07 08:07 08:07 WBC RBC Hgb Hct MCV MCH MCHC RDW Std Deviation RDW Coeff of Sandra Plt Count MPV Immature Gran % (Auto) Neut % (Auto) Lymph % (Auto) Wolfe % (Auto) Eos % (Auto) Baso % (Auto) Immature Gran # (Auto) Neut # (Auto) Lymph # (Auto) Wolfe # (Auto) Eos # (Auto) Baso # (Auto) PT INR APTT PTT Ratio Specimen Type Cancelled Cancelled Sample Site Cancelled Cancelled Art Line Patient Temperature Cancelled Cancelled POC pH Cancelled Cancelled 7.44 POC pCO2 Cancelled Cancelled 34 L POC pO2 Cancelled Cancelled 75 L POC HCO3 Cancelled Cancelled 24 POC Total CO2 Cancelled Cancelled 25 POC Base Excess Cancelled Cancelled -1.0 O2 Sat Pulse Oximetry Cancelled Cancelled ABG pH (Temp Correct) Cancelled Cancelled ABG pCO2 (Temp Corrct Cancelled Cancelled POC ABG pO2 at Pt Temp Cancelled Cancelled POC ABG O2 Sat Cancelled Cancelled 97.0 H Gunner Test Cancelled Cancelled NA Set Respiration Rate Cancelled Cancelled O2 Delivery Device Cancelled Cancelled Ventilator POC O2 Rate Cancelled Cancelled 12 Minute Ventilation Cancelled Cancelled 4.7 Vent Mode Cancelled Cancelled Vent Setting Cancelled Cancelled Spontaneous Rate Cancelled Cancelled FiO2 (liters per min) Cancelled Cancelled POC FiO2 Cancelled Cancelled Tidal Volume Cancelled Cancelled 450 Spontaneous Tidal Vol Cancelled Cancelled End Tidal CO2 Cancelled Cancelled PEEP Cancelled Cancelled 8 High PEEP Setting Cancelled Cancelled Low PEEP Setting Cancelled Cancelled Pressure Support Cancelled Cancelled POC Pressure Suppt Cancelled Cancelled Pressure Support Vent Cancelled Cancelled Pressure High Cancelled Cancelled Time High Cancelled Cancelled Time Low Cancelled Cancelled EPAP Cancelled Cancelled IPAP Cancelled Cancelled Sodium Potassium Chloride Carbon Dioxide Anion Gap BUN Creatinine Est Cr Clr Drug Dosing Est GFR ( Amer) Est GFR (Non-Af Amer) BUN/Creatinine Ratio Glucose POC Glucose (other) Calcium Ionized Calcium Phosphorus Magnesium GGT 09/23/18 09/23/18 09/23/18 11:03 11:03 11:03 WBC 10.06 RBC 3.20 L Hgb 9.4 L Hct 28.0 L MCV 87.5 MCH 29.4 MCHC 33.6 RDW Std Deviation 52.0 H RDW Coeff of Sandra 16.3 H Plt Count 238 MPV 9.6 Immature Gran % (Auto) 0.2 Neut % (Auto) 89.1 Lymph % (Auto) 7.5 Wolfe % (Auto) 3.2 Eos % (Auto) 0.0 Baso % (Auto) 0.0 Immature Gran # (Auto) 0.02 Neut # (Auto) 8.97 H Lymph # (Auto) 0.75 L Wolfe # (Auto) 0.32 Eos # (Auto) 0.00 Baso # (Auto) 0.00 PT 11.8 INR 1.2 H APTT PTT Ratio Specimen Type Sample Site Patient Temperature POC pH POC pCO2 POC pO2 POC HCO3 POC Total CO2 POC Base Excess O2 Sat Pulse Oximetry ABG pH (Temp Correct) ABG pCO2 (Temp Corrct POC ABG pO2 at Pt Temp POC ABG O2 Sat Gunner Test Set Respiration Rate O2 Delivery Device POC O2 Rate Minute Ventilation Vent Mode Vent Setting Spontaneous Rate FiO2 (liters per min) POC FiO2 Tidal Volume Spontaneous Tidal Vol End Tidal CO2 PEEP High PEEP Setting Low PEEP Setting Pressure Support POC Pressure Suppt Pressure Support Vent Pressure High Time High Time Low EPAP IPAP Sodium Potassium Chloride Carbon Dioxide Anion Gap BUN Creatinine Est Cr Clr Drug Dosing Est GFR ( Amer) Est GFR (Non-Af Amer) BUN/Creatinine Ratio Glucose POC Glucose (other) Calcium Ionized Calcium Phosphorus 4.3 Magnesium 2.4 GGT 09/23/18 09/23/18 09/23/18 12:00 14:58 14:58 WBC RBC Hgb Hct MCV MCH MCHC RDW Std Deviation RDW Coeff of Sandra Plt Count MPV Immature Gran % (Auto) Neut % (Auto) Lymph % (Auto) Wolfe % (Auto) Eos % (Auto) Baso % (Auto) Immature Gran # (Auto) Neut # (Auto) Lymph # (Auto) Wolfe # (Auto) Eos # (Auto) Baso # (Auto) PT 11.7 INR 1.2 H APTT 35.6 H PTT Ratio 1.3 Specimen Type Sample Site Patient Temperature POC pH POC pCO2 POC pO2 POC HCO3 POC Total CO2 POC Base Excess O2 Sat Pulse Oximetry ABG pH (Temp Correct) ABG pCO2 (Temp Corrct POC ABG pO2 at Pt Temp POC ABG O2 Sat Gunner Test Set Respiration Rate O2 Delivery Device POC O2 Rate Minute Ventilation Vent Mode Vent Setting Spontaneous Rate FiO2 (liters per min) POC FiO2 Tidal Volume Spontaneous Tidal Vol End Tidal CO2 PEEP High PEEP Setting Low PEEP Setting Pressure Support POC Pressure Suppt Pressure Support Vent Pressure High Time High Time Low EPAP IPAP Sodium 135 L Potassium 3.8 Chloride 102 Carbon Dioxide 25 Anion Gap 8.0 BUN 30 H Creatinine 2.05 H Est Cr Clr Drug Dosing 31.5 Est GFR ( Amer) 33.7 Est GFR (Non-Af Amer) 29.1 BUN/Creatinine Ratio 14.7 Glucose 145 H POC Glucose (other) 154 H Calcium 8.4 L Ionized Calcium Phosphorus Magnesium 2.4 GGT 09/23/18 14:58 WBC RBC Hgb Hct MCV MCH MCHC RDW Std Deviation RDW Coeff of Sandra Plt Count MPV Immature Gran % (Auto) Neut % (Auto) Lymph % (Auto) Wolfe % (Auto) Eos % (Auto) Baso % (Auto) Immature Gran # (Auto) Neut # (Auto) Lymph # (Auto) Wolfe # (Auto) Eos # (Auto) Baso # (Auto) PT INR APTT PTT Ratio Specimen Type Sample Site Patient Temperature POC pH POC pCO2 POC pO2 POC HCO3 POC Total CO2 POC Base Excess O2 Sat Pulse Oximetry ABG pH (Temp Correct) ABG pCO2 (Temp Corrct POC ABG pO2 at Pt Temp POC ABG O2 Sat Gunner Test Set Respiration Rate O2 Delivery Device POC O2 Rate Minute Ventilation Vent Mode Vent Setting Spontaneous Rate FiO2 (liters per min) POC FiO2 Tidal Volume Spontaneous Tidal Vol End Tidal CO2 PEEP High PEEP Setting Low PEEP Setting Pressure Support POC Pressure Suppt Pressure Support Vent Pressure High Time High Time Low EPAP IPAP Sodium Potassium Chloride Carbon Dioxide Anion Gap BUN Creatinine Est Cr Clr Drug Dosing Est GFR ( Amer) Est GFR (Non-Af Amer) BUN/Creatinine Ratio Glucose POC Glucose (other) Calcium Ionized Calcium 1.02 L Phosphorus Magnesium GGT Medications Administered Current Inpatient Medications Atorvastatin Calcium (Lipitor) 40 mg PO HS DAYSI Stop: 10/22/18 20:59 Last Admin: 09/22/18 21:23 Dose: 40 mg Documented by: Enteral Nutritional Formula (Impact 1.0 Javier) 1,000 ml OG UD DAYSI; Protocol Stop: 10/23/18 09:14 Heparin Sodium (Beef Lung) (Heparin Sod 10 Unit/Ml Flush) 5 ml FLUSH PRN PRN PRN Reason: Flush Stop: 10/22/18 22:49 Heparin Sodium (Porcine) (Heparin Sodium (Porcine)) 5,000 units SQ Q12 DAYSI Stop: 10/24/18 08:59 Norepinephrine Bitartrate 8 mg (/ Dextrose) 508 mls @ 6.84 mls/hr IV .Q24H PRN; Protocol PRN Reason: TITRATE Stop: 10/22/18 00:45 Last Titration: 09/23/18 09:40 Dose: 0.02 mcg/kg/min, 6.8 mls/hr Documented by: Ceftriaxone Sodium 2,000 mg/ (Dextrose) 70 mls @ 140 mls/hr IV Q24H DAYSI Stop: 09/23/18 22:01 Last Infusion: 09/22/18 21:54 Dose: Infused Documented by: Famotidine 20 mg/ Syringe 5 mls @ 2.5 mls/min IV Q24H DAYSI Stop: 10/23/18 05:59 Last Admin: 09/23/18 05:13 Dose: 2.5 mls/min Documented by: Ioversol (Optiray 320 125ml) 125 ml IV ONCE PRN PRN Reason: Interaction Checking Stop: 09/25/18 22:31 Last Admin: 09/21/18 22:32 Dose: 119 ml Documented by: Meperidine HCl (Demerol) 25 mg IV Q2H PRN PRN Reason: .SHIVERING Stop: 09/24/18 00:00 Last Admin: 09/22/18 04:22 Dose: 25 mg Documented by: [email or web address] (Icu Protocol For Hyperglycemia) 1 ea N/A PRN PRN; Protocol PRN Reason: Hyperglycemia Protocol Stop: 09/24/18 00:45 Ticagrelor (Brilinta) 90 mg PO BID DAYSI Stop: 10/22/18 09:29 Last Admin: 09/23/18 07:52 Dose: 90 mg Documented by: PG Care Time/CCT Critical Care Time: Yes Total Critical Care Time: 40 Resident Activity Tracking Resident Involvement: Resident Care Provided Care Provided: Adult Hospital Medicine
[2018-09-23 07:46] LABS: Immature Granulocytes # (auto) 0.01 K/uL (0.00-0.02); Immature Granulocytes % (auto) 0.2 %; Lymphocytes % (auto) 9.2 %; Mean Corpuscular Hgb Conc 33.3 g/dL (32-36); Mean Corpuscular Volume 87.4 fL (80-100); Mean Platelet Volume 9.5 fL (7.4-10.4); Monocytes # (auto) 0.21 K/uL (0.11-0.59); Monocytes % (auto) 3.2 %; Neutrophils % (auto) 87.4 %; Platelet Count 199 K/uL (130-400); RDW Coefficient of Variation 16.3 % (11.5-14.5); RDW Standard Deviation 52.2 fL (36.4-46.3); Red Blood Count 3.09 M/uL (4.7-6.1); White Blood Count 6.52 K/uL (4.8-10.8)
[2018-09-23] MEDS: TICAGRELOR 90 MG TAB PO SCH ×2 (07:52→22:39)
[2018-09-23 07:53] LABS: INR 1.2 (0.9-1.1); Prothrombin Time 12.5 Seconds (9.0-12.0)
[2018-09-23 08:10] LABS: BUN Creatinine Ratio 15.6 (10-20); Calcium 8.3 mg/dl (8.5-10.1); Creatinine Clr Calc Pharmacy 34.9 ml/min; Est GFR (African American) 38.2; Est GFR (Non-African American) 32.9; Magnesium 2.3 mg/dl (1.8-2.4); Phosphorus 3.7 mg/dl (2.5-4.9); Potassium 3.5 mmol/L (3.5-5.1)
[2018-09-23] MEDS ORDERED: IMPACT LIQD 1.0 CAL 1,000 ML BAG OG SCH (09:15)
--- NOTE | 2018-09-23 09:24 | Procedure Note ---
EEG Procedure Note Date of Service September 23, 2018 Start / End Times Start Time: 8:17 AM End Time: 8:37 AM Referring Physician Shawn Dela Cruz DO History Status post cardiac arrest, suspected anoxic encephalopathy, hypothermia protocol, currently rewarming patient, patient has been more alert and making some purposeful movements. Home Medication List Home Medications Medication Instructions Recorded Confirmed Type atorvastatin 40 mg PO HS 02/01/18 09/21/18 History nitroglycerin [Nitrostat] 0.4 mg SUBLINGUAL DIRECTED PRN 02/01/18 09/21/18 History aspirin 81 mg PO DAILY 06/09/18 09/21/18 History cholecalciferol (vitamin D3) 1,000 unit PO DAILY 06/09/18 09/21/18 History [Vitamin D3] clopidogrel 75 mg PO DAILY 06/09/18 09/21/18 History cyanocobalamin (vitamin B-12) 1,000 mcg PO DAILY 06/09/18 09/21/18 History [Vitamin B-12] famotidine 20 mg PO BID 06/09/18 09/21/18 History pantoprazole 40 mg PO DAILY 06/09/18 09/21/18 History hydrocortisone [Proctosol HC] 1 applic EXT Q8H PRN #15 g 08/05/18 09/21/18 Rx ranolazine 1,000 mg PO BID #60 tab 08/05/18 09/21/18 Rx sennosides-docusate sodium 1 tab PO BID #60 tab 08/05/18 09/21/18 Rx [Senokot-S] lancets 33 gauge #100 ea 08/20/18 09/21/18 Rx furosemide 40 mg PO DAILY 09/21/18 09/21/18 History midodrine 10 mg PO QAM 09/21/18 09/22/18 History midodrine 5 mg PO BID 09/22/18 09/22/18 History Inpatient Medication List Atorvastatin Calcium (Lipitor) 40 mg PO HS DAYSI Stop: 10/22/18 20:59 Last Admin: 09/22/18 21:23 Dose: 40 mg Documented by: [id number] Fentanyl Citrate (Fentanyl Drip) 1,250 mcg in 250 mls @ 5 mls/hr IV .Q24H PRN; Protocol PRN Reason: TITRATE Stop: 10/06/18 00:45 Last Titration: 09/23/18 08:50 Dose: 0 mcg/hr, 0 mls/hr Documented by: [id number] Titration: 09/23/18 07:06 Dose: 25 mcg/hr, 5 mls/hr Documented by: [id number] Cosigned by: [id number] Titration: 09/22/18 18:56 Dose: 25 mcg/hr, 5 mls/hr Documented by: [id number] Cosigned by: [id number] Titration: 09/22/18 07:15 Dose: 25 mcg/hr, 5 mls/hr Documented by: [id number] Cosigned by: [id number] Admin: 09/22/18 01:16 Dose: 25 mcg/hr, 5 mls/hr Documented by: [id number] Cosigned by: [id number] Midazolam HCl (Versed) 125 mg in 250 mls @ 4 mls/hr IV .Q24H PRN; Protocol PRN Reason: TITRATE Stop: 10/22/18 00:45 Last Titration: 09/23/18 08:50 Dose: 0 mg/hr, 0 mls/hr Documented by: [id number] Titration: 09/23/18 07:06 Dose: 2 mg/hr, 4 mls/hr Documented by: [id number] Cosigned by: [id number] Titration: 09/22/18 18:56 Dose: 2 mg/hr, 4 mls/hr Documented by: [id number] Cosigned by: [id number] Titration: 09/22/18 07:15 Dose: 2 mg/hr, 4 mls/hr Documented by: [id number] Cosigned by: [id number] Titration: 09/22/18 04:00 Dose: 2 mg/hr, 4 mls/hr Documented by: [id number] Admin: 09/22/18 01:15 Dose: 1 mg/hr, 2 mls/hr Documented by: [id number] Cosigned by: [id number] Norepinephrine Bitartrate 8 mg (/ Dextrose) 508 mls @ 13.67 mls/hr IV .Q24H PRN; Protocol PRN Reason: TITRATE Stop: 10/22/18 00:45 Last Titration: 09/23/18 07:25 Dose: 0.04 mcg/kg/min, 13.7 mls/hr Documented by: [id number] Titration: 09/23/18 07:06 Dose: 0.02 mcg/kg/min, 6.8 mls/hr Documented by: [id number] Cosigned by: [id number] Titration: 09/23/18 02:24 Dose: 0.02 mcg/kg/min, 6.8 mls/hr Documented by: [id number] Admin: 09/22/18 22:13 Dose: 0.01 mcg/kg/min, 3.4 mls/hr Documented by: [id number] Cosigned by: [id number] Ceftriaxone Sodium 2,000 mg/ (Dextrose) 70 mls @ 140 mls/hr IV Q24H DAYSI Stop: 09/23/18 22:01 Last Infusion: 09/22/18 21:54 Dose: 0 mls/hr Documented by: [id number] Admin: 09/22/18 21:24 Dose: 140 mls/hr Documented by: [id number] Heparin Sodium/Dextrose (Heparin Sodium/Dextrose) 25,000 units in 500 mls @ 19 mls/hr IV .Q24H DAYSI; Protocol Stop: 10/22/18 01:14 Last Titration: 09/23/18 07:06 Dose: 950 units/hr, 19 mls/hr Documented by: [id number] Cosigned by: [id number] Admin: 09/23/18 05:14 Dose: 950 units/hr, 19 mls/hr Documented by: [id number] Cosigned by: [id number] Titration: 09/23/18 05:14 Dose: 950 units/hr, 19 mls/hr Documented by: [id number] Cosigned by: [id number] Titration: 09/23/18 05:13 Dose: 950 units/hr, 19 mls/hr Documented by: [id number] Cosigned by: [id number] Admin: 09/23/18 01:22 Dose: Not Given Documented by: [id number] Titration: 09/23/18 00:50 Dose: 0 units/hr, 0 mls/hr Documented by: [id number] Cosigned by: [id number] Titration: 09/22/18 18:56 Dose: 1,200 units/hr, 24 mls/hr Documented by: [id number] Cosigned by: [id number] Titration: 09/22/18 18:00 Dose: 1,200 units/hr, 24 mls/hr Documented by: [id number] Cosigned by: [id number] Titration: 09/22/18 09:30 Dose: 0 units/hr, 0 mls/hr Documented by: [id number] Cosigned by: [id number] Titration: 09/22/18 07:15 Dose: 1,450 units/hr, 29 mls/hr Documented by: [id number] Cosigned by: [id number] Admin: 09/22/18 01:24 Dose: 1,450 units/hr, 29 mls/hr Documented by: [id number] Cosigned by: [id number] Famotidine 20 mg/ Syringe 5 mls @ 2.5 mls/min IV Q24H DAYSI Stop: 10/23/18 05:59 Last Admin: 09/23/18 05:13 Dose: 2.5 mls/min Documented by: [id number] Ioversol (Optiray 320 125ml) 125 ml IV ONCE PRN PRN Reason: Interaction Checking Stop: 09/25/18 22:31 Last Admin: 09/21/18 22:32 Dose: 119 ml Documented by: [id number] Meperidine HCl (Demerol) 25 mg IV Q2H PRN PRN Reason: .SHIVERING Stop: 10/06/18 00:45 Last Admin: 09/22/18 04:22 Dose: 25 mg Documented by: [id number] Ticagrelor (Brilinta) 90 mg PO BID DAYSI Stop: 10/22/18 09:29 Last Admin: 09/23/18 07:52 Dose: 90 mg Documented by: [id number] Admin: 09/22/18 21:23 Dose: 90 mg Documented by: [id number] Admin: 09/22/18 09:50 Dose: 90 mg Documented by: [id number] Discontinued Medications Diphenhydramine HCl (Benadryl) 25 mg IV NOW STA Stop: 09/21/18 21:58 Last Admin: 09/21/18 22:05 Dose: 25 mg Documented by: [id number] Fentanyl Citrate (Fentanyl Citrate) 100 mcg IV NOW ONE Stop: 09/21/18 22:36 Last Admin: 09/21/18 22:39 Dose: 100 mcg Documented by: [id number] Fentanyl Citrate (Fentanyl Citrate) Confirm Administered Dose 100 mcg .ROUTE .STK-MED ONE Stop: 09/21/18 22:37 Last Admin: 09/21/18 22:40 Dose: Not Given Documented by: [id number] Fentanyl Citrate (Fentanyl Citrate) 100 mcg IV Q2H PRN PRN Reason: Severe Pain (7,8,9,10) Stop: 10/05/18 22:57 Last Admin: 09/21/18 23:49 Dose: 100 mcg Documented by: [id number] Heparin Sodium/Dextrose () 1 ea IV Q15M DAYSI; Protocol Stop: 10/22/18 00:45 Last Admin: 09/22/18 03:41 Dose: Not Given Documented by: [id number] Admin: 09/22/18 03:41 Dose: Not Given Documented by: [id number] Admin: 09/22/18 03:41 Dose: Not Given Documented by: [id number] Admin: 09/22/18 03:41 Dose: Not Given Documented by: [id number] Admin: 09/22/18 01:15 Dose: 1 ea Documented by: [id number] Famotidine (Pepcid 20mg Iv Push) 20 mg in 5 mls @ 2.5 mls/min IV NOW STA Stop: 09/21/18 21:58 Last Admin: 09/21/18 22:05 Dose: 2.5 mls/min Documented by: [id number] Propofol (Diprivan) 1,000 mg in 100 mls @ 0 mls/hr IV .Q0M PRN; Protocol PRN Reason: TITRATE Stop: 09/24/18 22:14 Last Titration: 09/21/18 23:56 Dose: 0 mcg/kg/min, 0 mls/hr Documented by: [id number] Titration: 09/21/18 22:57 Dose: 0 mcg/kg/min, 0 mls/hr Documented by: [id number] Titration: 09/21/18 22:47 Dose: 5 mcg/kg/min, 2.5 mls/hr Documented by: [id number] Titration: 09/21/18 22:41 Dose: 10 mcg/kg/min, 5.1 mls/hr Documented by: [id number] Admin: 09/21/18 22:05 Dose: 5 mcg/kg/min, 2.5 mls/hr Documented by: [id number] Cosigned by: [id number] Sodium Chloride (Nss 1000ml) 1,000 mls @ 999 mls/hr IV .Q1H1M ONE Stop: 09/21/18 23:31 Last Infusion: 09/21/18 23:20 Dose: 0 mls/hr Documented by: [id number] Admin: 09/21/18 22:42 Dose: 999 mls/hr Documented by: [id number] Norepinephrine Bitartrate 8 mg (/ Dextrose) 508 mls @ 17.09 mls/hr IV .Q24H DAYSI; Protocol Stop: 10/21/18 23:14 Last Titration: 09/22/18 22:11 Dose: 0 mcg/kg/min, 0 mls/hr Documented by: [id number] Titration: 09/22/18 18:56 Dose: 0.02 mcg/kg/min, 6.8 mls/hr Documented by: [id number] Cosigned by: [id number] Titration: 09/22/18 14:00 Dose: 0.02 mcg/kg/min, 6.8 mls/hr Documented by: [id number] Titration: 09/22/18 09:00 Dose: 0.03 mcg/kg/min, 10.3 mls/hr Documented by: [id number] Titration: 09/22/18 07:15 Dose: 0.05 mcg/kg/min, 17.1 mls/hr Documented by: [id number] Cosigned by: [id number] Admin: 09/21/18 23:27 Dose: 0.05 mcg/kg/min, 17.1 mls/hr Documented by: [id number] Cosigned by: [id number] Ceftriaxone Sodium 2,000 mg/ (Dextrose) 70 mls @ 100 mls/hr IV NOW STA Stop: 09/21/18 23:55 Last Infusion: 09/22/18 00:14 Dose: 0 mls/hr Documented by: [id number] Admin: 09/21/18 23:27 Dose: 100 mls/hr Documented by: [id number] Ranitidine HCl 50 mg/ Dextrose 102 mls @ 200 mls/hr IV Q8H DAYSI Stop: 10/22/18 03:59 Last Infusion: 09/22/18 04:53 Dose: 0 mls/hr Documented by: [id number] Admin: 09/22/18 04:22 Dose: 200 mls/hr Documented by: [id number] Potassium Chloride (K Frank / Wtr) 10 meq in 100 mls @ 100 mls/hr IV Q1H DAYSI Stop: 09/22/18 12:59 Last Infusion: 09/22/18 13:59 Dose: 0 mls/hr Documented by: [id number] Admin: 09/22/18 12:59 Dose: 100 mls/hr Documented by: [id number] Infusion: 09/22/18 12:59 Dose: 100 mls/hr Documented by: [id number] Admin: 09/22/18 12:03 Dose: 100 mls/hr Documented by: [id number] Infusion: 09/22/18 11:47 Dose: 100 mls/hr Documented by: [id number] Admin: 09/22/18 10:47 Dose: 100 mls/hr Documented by: [id number] Infusion: 09/22/18 10:47 Dose: 100 mls/hr Documented by: [id number] Admin: 09/22/18 09:50 Dose: 100 mls/hr Documented by: [id number] Parenteral Electrolytes (Normosol-R) 1,000 mls @ 50 mls/hr IV .Q20H DAYSI Stop: 10/22/18 09:29 Last Infusion: 09/23/18 08:28 Dose: 0 mls/hr Documented by: [id number] Infusion: 09/23/18 07:06 Dose: 50 mls/hr Documented by: [id number] Admin: 09/23/18 05:13 Dose: 50 mls/hr Documented by: [id number] Infusion: 09/23/18 05:13 Dose: 50 mls/hr Documented by: [id number] Infusion: 09/22/18 18:56 Dose: 50 mls/hr Documented by: [id number] Admin: 09/22/18 09:50 Dose: 50 mls/hr Documented by: [id number] Methylprednisolone (Solumedrol) 125 mg IV NOW STA Stop: 09/21/18 21:58 Last Admin: 09/21/18 22:05 Dose: 125 mg Documented by: [id number] Midazolam HCl (Versed) 2 mg IV NOW STA Stop: 09/21/18 22:36 Last Admin: 09/21/18 22:42 Dose: 1 mg Documented by: [id number] Midazolam HCl (Versed) Confirm Administered Dose 2 mg .ROUTE .STK-MED ONE Stop: 09/21/18 22:38 Last Admin: 09/21/18 22:42 Dose: Not Given Documented by: [id number] Midazolam HCl (Versed) 2 mg IV Q2H PRN PRN Reason: agitation/anxiety Stop: 10/21/18 22:57 Last Admin: 09/21/18 23:56 Dose: 1 mg Documented by: [id number] Admin: 09/21/18 23:49 Dose: 1 mg Documented by: [id number] Midazolam HCl (Versed) Confirm Administered Dose 2 mg .ROUTE .STK-MED ONE Stop: 09/22/18 00:49 Last Admin: 09/22/18 00:54 Dose: 2 mg Documented by: [id number] Miscellaneous (Patient's Height And/Or Weight Needed) 1 ea N/A Q30M [facility] Stop: 10/21/18 22:14 Last Admin: 09/22/18 03:41 Dose: Not Given Documented by: [id number] Admin: 09/22/18 03:40 Dose: Not Given Documented by: [id number] Admin: 09/22/18 03:40 Dose: Not Given Documented by: [id number] Admin: 09/22/18 03:40 Dose: Not Given Documented by: [id number] Admin: 09/22/18 01:38 Dose: 1 ea Documented by: [id number] Admin: 09/21/18 23:08 Dose: 1 ea Documented by: [id number] Propofol (Diprivan) Confirm Administered Dose 1,000 mg IV .STK-MED ONE Stop: 09/21/18 21:58 Last Admin: 09/21/18 22:18 Dose: Not Given Documented by: [id number] Description This is a 21 electrode EEG with a single channel dedicated to limited EKG. The electrodes were placed in accordance with the International 10-20 system. The background rhythm consists of a mix of 10 to 12 Hz alpha frequency with a small amount of admixed 6 Hz theta frequency. There is a normal anterior to posterior organization. Photic stimulation is not performed. There is a symmetric frontal beta rhythm, less pronounced than yesterday. There is a minimal degree of 2-1/2 to 3 Hz left frontotemporal slowing. No periodic discharges. No burst suppression pattern. No definitive epileptiform abnormalities. Interpretation This follow-up awake/drowsy EEG reveals changes suggestive of a mild encephalopathy, although improved compared with yesterday. There is some left frontotemporal slowing that is not likely clinically significant but could suggest some focal cortical dysfunction in that region. No evidence for seizure activity. Clinical Correlation Improving encephalopathy compared with yesterday. Consider obtaining a follow- up CT of the head or brain MRI to evaluate the observed left frontotemporal slowing.
--- NOTE | 2018-09-23 09:42 | Neurology Progress Note ---
Date of Service September 23, 2018 Assessment & Plan (1) Anoxic encephalopathy: Improving anoxic encephalopathy. No evidence for seizure activity on repeat EEG. Patient is more alert and is able to follow simple commands this morning. His prognosis for recovery is improved compared with yesterday. Would consider obtaining a repeat CT of the head or MRI of the brain for further evaluation of the observed left frontotemporal slowing on his EEG this morning. I will continue to follow this patient's clinical progress. Subjective Follow-up for suspected anoxic encephalopathy, status post cardiac arrest The patient is an 82-year-old male status post cardiac arrest, was on hypothermia protocol, currently rewarming. The patient has been a bit more alert and even interactive at times. He will open his eyes, track people in the room, and has been observed grabbing at his endotracheal tube purposefully. No seizure activity or myoclonic jerking has been observed. A follow-up EEG was completed this morning which revealed changes suggestive of mild encephalopathy, although improved compared with yesterday. Review of Systems Review of Systems: Unable to obtain as patient is currently intubated Physical Exam Physical Exam: The patient opens his eyes to voice and tactile stimulation. Patient blinks to threat. Pupils equal round reactive to light. Eye movements intact. No nystagmus. No gaze preference. Corneal reflexes intact. No abnormal movements or posturing observed. Muscle tone normal throughout. Patient able to grasp with both the right and left hand to command. Patient will volitionally grab at his endotracheal tube and bed linens. Results & Data Vital Signs (Past 12 Hours) Vital Signs Temp Temp Pulse Pulse Resp BP BP 09/23/18 08:35 12 09/23/18 07:45 51 L 12 09/23/18 07:00 33.1 C L 33 C L 49 L 12 103/50 L 09/23/18 06:00 32.6 C L 32.4 C L 48 L 12 114/55 L 116/63 09/23/18 05:00 32.1 C L 32.1 C L 46 L 12 109/55 L 113/57 L 09/23/18 04:00 32.1 C L 32 C L 47 L 12 118/60 105/56 L 09/23/18 03:00 32.1 C L 32 C L 49 L 12 106/54 L 105/60 09/23/18 02:32 44 L 103/52 L 105/56 L 09/23/18 02:14 45 L 12 09/23/18 02:00 32.1 C L 32 C L 38 L 12 93/47 L 104/56 L 09/23/18 01:00 32 C L 32.1 C L 45 L 12 98/50 L 87/53 L 09/23/18 00:00 32.1 C L 32 C L 49 L 12 99/52 L 105/46 L 09/22/18 23:00 32.1 C L 32 C L 46 L 12 105/55 L 105/46 L 09/22/18 22:42 43 L 12 09/22/18 22:00 32.1 C L 32 C L 43 L 13 108/55 L 111/64 Pulse Ox 09/23/18 08:35 09/23/18 07:45 100 09/23/18 07:00 100 09/23/18 06:00 100 09/23/18 05:00 100 09/23/18 04:00 100 09/23/18 03:00 100 09/23/18 02:32 09/23/18 02:14 100 09/23/18 02:00 100 09/23/18 01:00 100 09/23/18 00:00 100 09/22/18 23:00 100 09/22/18 22:42 100 09/22/18 22:00 100 Laboratory Results Recently completed labs reviewed. WBC 6.52, hemoglobin 9.0, hematocrit 27.0, platelet count 199, sodium 137, potassium 3.5, BUN 29, creatinine 1.85, glucose 157, calcium 8.3, magnesium 2.3 Diagnostic Findings An EEG completed this morning reveals changes suggestive of a mild encephalopathy, although improved compared with yesterday, as well as some focal left frontotemporal slowing. No epileptiform abnormalities. A CT of the head completed September 21, 2018 was negative for hemorrhage or acute process. There were patchy white matter hypodensities suggestive of chronic microvascular ischemic disease. There is generalized atrophy. Images reviewed again in light of recent EEG finding of some focal left frontotemporal slowing. No obvious underlying structural or focal ischemic change that will correlate with the EEG finding as above.
[2018-09-23] MEDS ORDERED: FUROSEMIDE 20 MG in SYRINGE 0 ML IV ONE (10:00)
[2018-09-23 11:17] LABS: Hemoglobin 9.4 g/dL (14.0-18.0); Immature Granulocytes # (auto) 0.02 K/uL (0.00-0.02); Immature Granulocytes % (auto) 0.2 %; Lymphocytes # (auto) 0.75 K/uL (1.2-3.4); Lymphocytes % (auto) 7.5 %; Mean Corpuscular Hgb Conc 33.6 g/dL (32-36); Mean Corpuscular Volume 87.5 fL (80-100); Mean Platelet Volume 9.6 fL (7.4-10.4); Monocytes # (auto) 0.32 K/uL (0.11-0.59); Monocytes % (auto) 3.2 %; Neutrophils # (auto) 8.97 K/uL (1.4-6.5); Neutrophils % (auto) 89.1 %; Platelet Count 238 K/uL (130-400); RDW Coefficient of Variation 16.3 % (11.5-14.5); White Blood Count 10.06 K/uL (4.8-10.8)
[2018-09-23 11:35] LABS: INR 1.2 (0.9-1.1); Prothrombin Time 11.8 Seconds (9.0-12.0)
[2018-09-23 11:49] LABS: Magnesium 2.4 mg/dl (1.8-2.4); Phosphorus 4.3 mg/dl (2.5-4.9)
--- NOTE | 2018-09-23 14:24 | Hospitalist Progress Note ---
Date of Service September 23, 2018 Assessment & Plan (1) Cardiac arrest: Likely 20-30 minutes of CPR prior to ROSC in the ED. At least 15 minutes of CPR prior to EMT arrival at home. Unclear inciting event, though his significant cardiac history with negative troponins point toward away from an i schemic event and possibly a ventricular arrhythmia that had devolved prior to being attached to pads. - Cooling protocol wrapping up; hemodynamic support per ICU team - Neurology following to assess for recovery - Plan for MRI give focal EEG finding; though no seizures (2) Pneumonia: Concern for aspiration either as inciting event (less likely) or during his code. - Continue ceftriaxone per ICU team (3) Anoxic encephalopathy: ROSC after 20-30 minutes of CPR. - See above (4) JANIS (acute kidney injury): Baseline Cr ~1.1-1.2. Cr on admission was 1.9. Likely ATN from hypoperfusion during code. - Support BP - Monitor Cr (5) CAD (coronary artery disease): Prior cath in 07/2018 without ability to intervene. - Troponins negative x 3 - Cardiology following (6) HTN (hypertension), benign: On pressor support at present. - Holding most oral meds (7) DVT prophylaxis: On heparin gtt per ICU team Subjective Tells me I am a "Very nice girl," but really has no other intelligible responses. Review of Systems Review of Systems: Unobtainable due to cognitive status Physical Exam Constitutional: WD/WN, vitals as above + acute distress Eyes: EOM intact bilaterally; no conjunctival abnormality Neck: trachea midline, no thyromegaly normal visual inspection Respiratory: normal respiratory effort, lungs clear to auscultation no respiratory distress Cardiovascular: RRR, no murmur, no edema Gastrointestinal (Abdomen): Inspection/Auscultation: abdomen normal to inspection; abdomen not distended Musculoskeletal: no cyanosis or clubbing, extremities motor strength 5/5 Skin: no rashes, warm and dry Neurologic: moves all extremities and + obtunded; + not awake Psychiatric: Orientation: alert, oriented to person and cooperative Results & Data Vital Signs (Past 12 Hours) Vital Signs Temp Temp Pulse Pulse Resp BP BP 09/23/18 14:00 36 C L 35.9 C L 64 24 109/52 L 09/23/18 13:00 35.7 C L 35.6 C L 59 L 20 112/54 L 104/46 L 09/23/18 12:00 35.2 C L 35.1 C L 60 19 101/62 100/47 L 09/23/18 11:42 09/23/18 11:00 34.9 C L 34.8 C L 56 L 16 103/66 109/52 L 09/23/18 10:00 34.3 C L 34.2 C L 69 15 126/64 125/59 L 09/23/18 09:00 33.8 C L 33.7 C L 60 9 L 105/51 L 09/23/18 08:35 12 09/23/18 08:00 33.4 C L 33.3 C L 50 L 12 97/51 L 85/39 L 09/23/18 07:45 51 L 12 09/23/18 07:00 33.1 C L 33 C L 47 L 12 103/60 103/50 L 09/23/18 06:00 32.6 C L 32.4 C L 48 L 12 114/55 L 09/23/18 05:00 32.1 C L 32.1 C L 46 L 12 109/55 L 09/23/18 04:00 32.1 C L 32 C L 47 L 12 118/60 09/23/18 03:00 32.1 C L 32 C L 49 L 12 106/54 L 09/23/18 02:32 44 L 103/52 L BP Pulse Ox 09/23/18 14:00 109/59 L 96 09/23/18 13:00 112/54 L 94 09/23/18 12:00 101/62 94 09/23/18 11:42 94 09/23/18 11:00 103/66 99 09/23/18 10:00 126/64 100 09/23/18 09:00 95/49 L 97 09/23/18 08:35 09/23/18 08:00 97/51 L 100 09/23/18 07:45 100 09/23/18 07:00 100 09/23/18 06:00 116/63 100 09/23/18 05:00 113/57 L 100 09/23/18 04:00 105/56 L 100 09/23/18 03:00 105/60 100 09/23/18 02:32 105/56 L PG Care Time/CCT Total # of Minutes Spent Total Time Spent with Patient: Total time spent is greater than 50% in coordination of care (as documented) at patient's floor/unit and/or counseling patient: (1) CAD (coronary artery disease) Coronary Disease-Associated Artery/Lesion type: [place] artery [place] vs. t ransplanted heart: [place] heart Associated angina: with unstable angina Qualified Code(s): I25.110 - Atherosclerotic heart disease of [place] coronary artery with unstable angina pectoris
[2018-09-23 15:35] LABS: INR 1.2 (0.9-1.1); Partial Thromboplastin Ratio 1.3; Partial Thromboplastin Time 35.6 Seconds (21.0-31.0); Prothrombin Time 11.7 Seconds (9.0-12.0)
[2018-09-23 15:39] LABS: BUN Creatinine Ratio 14.7 (10-20); Calcium 8.4 mg/dl (8.5-10.1); Creatinine Clr Calc Pharmacy 31.5 ml/min; Est GFR (African American) 33.7; Est GFR (Non-African American) 29.1; Magnesium 2.4 mg/dl (1.8-2.4); Potassium 3.8 mmol/L (3.5-5.1)
--- NOTE | 2018-09-23 16:56 | Cardiology Progress Note ---
Date of Service September 23, 2018 Assessment & Plan (1) Cardiac arrest: 2. Coronary artery disease--5 vessel CABG, RCA stents; cardiac cath 07/26/18 with unsuccessful attempt to intervene on PAV to PDA Y graft stenosis 3. Ischemic cardiomyopathy 4. Acute on chronic kidney disease 5. 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 Aortic stenosis/Mitral regurgitation 7. Anemia 8. Possible aspiration pneumonia Hemodynamically stable, requiring minimal pressor support Sinus bradycardia during cooling, no other significant arrhythmia. Modest urine output, mild acute on CKD Awake, extubated, stable respiratory status -- Continued hemodynamic support as necessary with re-warming -- Continue DAPT -- start ASA, can switch back to plavix post cooling -- Continue statin -- start GDMT for ICM as BPs stable -- Will discuss ICD pending clinical course Subjective Patient seen approximately 8:30 this morning. No events overnight. Awake and following commands off sedation. Extubated this morning. Minimal norepi overnight. Modest urine output, SCr up to 2.8 Review of Systems Review of Systems: All systems reviewed & are unremarkable except as noted in HPI & below Physical Exam Physical Exam: General: Intubated, awake, following commands HEENT: Sclerae anicteric Lungs: Clear to auscultation bilaterally, no rhonchi or wheezes Cardiac: Regular rate and rhythm, 3 out of 6 systolic ejection murmur Abdomen: Soft, nontender, nondistended, positive bowel sounds. Extremities: 2+ radial pulses Skin: No rashes or lesions. Results & Data Vital Signs (Past 12 Hours) Vital Signs Temp Temp Pulse Resp BP BP BP 09/23/18 16:00 36.6 C 36.4 C L 74 13 95/44 L 113/63 09/23/18 15:00 36.3 C L 36.2 C L 72 19 99/40 L 104/61 09/23/18 14:00 36 C L 35.9 C L 64 24 109/52 L 109/59 L 09/23/18 13:00 35.7 C L 35.6 C L 59 L 20 112/54 L 104/46 L 112/54 L 09/23/18 12:00 35.2 C L 35.1 C L 60 19 101/62 100/47 L 101/62 09/23/18 11:42 09/23/18 11:00 34.9 C L 34.8 C L 56 L 16 103/66 109/52 L 103/66 09/23/18 10:00 34.3 C L 34.2 C L 69 15 126/64 125/59 L 126/64 09/23/18 09:00 33.8 C L 33.7 C L 60 9 L 105/51 L 95/49 L 09/23/18 08:35 12 09/23/18 08:00 33.4 C L 33.3 C L 50 L 12 97/51 L 85/39 L 97/51 L 09/23/18 07:45 51 L 12 09/23/18 07:00 33.1 C L 33 C L 47 L 12 103/60 103/50 L 09/23/18 06:00 32.6 C L 32.4 C L 48 L 12 114/55 L 116/63 09/23/18 05:00 32.1 C L 32.1 C L 46 L 12 109/55 L 113/57 L Pulse Ox 09/23/18 16:00 98 09/23/18 15:00 97 09/23/18 14:00 96 09/23/18 13:00 94 09/23/18 12:00 94 09/23/18 11:42 94 09/23/18 11:00 99 09/23/18 10:00 100 09/23/18 09:00 97 09/23/18 08:35 09/23/18 08:00 100 09/23/18 07:45 100 09/23/18 07:00 100 09/23/18 06:00 100 09/23/18 05:00 100
[2018-09-23 21:21] LABS: INR 1.2 (0.9-1.1); Partial Thromboplastin Ratio 1.1; Partial Thromboplastin Time 29.9 Seconds (21.0-31.0); Prothrombin Time 11.9 Seconds (9.0-12.0)
[2018-09-23 21:25] LABS: BUN Creatinine Ratio 14.9 (10-20); Calcium 8.8 mg/dl (8.5-10.1); Creatinine Clr Calc Pharmacy 28.4 ml/min; Est GFR (African American) 29.8; Est GFR (Non-African American) 25.7; Magnesium 2.5 mg/dl (1.8-2.4); Potassium 4.1 mmol/L (3.5-5.1)
[2018-09-23] MEDS: cefTRIAXone SODIUM 2,000 MG in DEXTROSE 5% 50 ML IV SCH (22:38)
[2018-09-23] MEDS: ATORVASTATIN 40 MG TAB PO SCH (22:39)
[2018-09-24] MEDS ORDERED: BISACODYL 10 MG SUPP PR STA (01:47)
[2018-09-24] MEDS: NORMOSOL-R 1,000 ML IV SCH (02:00)
[2018-09-24 05:08] LABS: Basophils # (auto) 0.01 K/uL (0-0.2); Basophils % (auto) 0.1 %; Hematocrit (blood only) 26.4 % (42-52); Hemoglobin 8.8 g/dL (14.0-18.0); Immature Granulocytes # (auto) 0.02 K/uL (0.00-0.02); Immature Granulocytes % (auto) 0.2 %; Lymphocytes # (auto) 0.95 K/uL (1.2-3.4); Mean Corpuscular Hgb Conc 33.3 g/dL (32-36); Mean Corpuscular Volume 89.5 fL (80-100); Monocytes # (auto) 0.88 K/uL (0.11-0.59); Monocytes % (auto) 7.4 %; Neutrophils # (auto) 10.08 K/uL (1.4-6.5); Neutrophils % (auto) 84.3 %; Platelet Count 224 K/uL (130-400); RDW Coefficient of Variation 16.5 % (11.5-14.5); RDW Standard Deviation 53.8 fL (36.4-46.3); Red Blood Count 2.95 M/uL (4.7-6.1); White Blood Count 11.94 K/uL (4.8-10.8)
[2018-09-24] MEDS: FAMOTIDINE 20 MG in SYRINGE 3 ML IV SCH (05:11)
[2018-09-24 05:18] LABS: INR 1.3 (0.9-1.1); Partial Thromboplastin Ratio 1.1; Partial Thromboplastin Time 30.7 Seconds (21.0-31.0); Prothrombin Time 12.8 Seconds (9.0-12.0)
[2018-09-24 06:54] LABS: BUN Creatinine Ratio 15.5 (10-20); Calcium 8.4 mg/dl (8.5-10.1); Creatinine Clr Calc Pharmacy 26.4 ml/min; Est GFR (Non-African American) 23.3; Magnesium 2.4 mg/dl (1.8-2.4); Potassium 4.1 mmol/L (3.5-5.1)
[2018-09-24 06:59] LABS: Phosphorus 5.3 mg/dl (2.5-4.9)
[2018-09-24] MEDS: HEPARIN SOD 5,000 UNIT/0.5 ML VIAL SQ SCH ×2 (07:37→21:18)
[2018-09-24] MEDS: TICAGRELOR 90 MG TAB PO SCH (07:37)
--- NOTE | 2018-09-24 08:23 | Critical Care Progress Note ---
Date of Service September 24, 2018 Assessment & Plan (1) Admitted to intensive care unit: Reason Critically Ill: ROSC after cardiac arrest and currently in therapeutic hypothermia protocol. PLAN: NEURO -Therapeutic hypothermia completed. Rewarming finished. -Mild anoxic encephalopathy. Pt is more alert and is able to follow simple commands. Expect some cognitive difficulty from cerebral anoxia moving forward -No evidence of seizure activity on EEG -Neuro: Clinical status and prognosis for recovery improved. Consider a repeat CT head or MRI brain for further evaluation of observed left frontotemporal slowing on EEG PULM -Liberated from ventilater. Sating well on RA. -Aspiration pneumonitis- s/p bronch. NGTD. Completed course of Rocephin -KAY CARDIO -Cause of cardiac arrest unclear. History of severe CAD with multiple admissions this year with troponin elevations. Cardiac cath in July without ability to intervene. Trops negative. ECHO reviewed. -HTN- off pressor support now. Holding home meds -Will switch back to plavix today from Brilinta -CAD- Cont atorvastatin. Will add ASA -Cards to discuss ICD pending clinical course Fluids/Renal: -CKD stage III- Elevated creatinine. Cont trend -poor UOP, cont monitor -decreased Normosol to 75 ID: -Concern for aspiration, dc'd antibiotics empirically after 48 hrs today GI/Nutrition: -CT Abd: Gallbladder wall thickening -Normal LFT's. Will cont trend, may require RUQ U/S in near future -Advanced to AHA diet HEME -Anemia of chronic kidney disease -Stable H/H. No concerns for acute bleeding. Cont trend ENDO -A1C 5.8 -ICU hyperglycemia protocol. Elevated BSG likely 2/2 stress LINES: Removed chilli cath. A-line, R IJ Central venous access, PIV x3. DVT prophylaxis: Heparin Full Code DISPO: Stable for downgrade out of ICU to PCU. PT/OT Eval Supervising Physician Co-Signing Physician Notes Dr. Bloom was resident physician during care of patient. I separately evaluated patient for weber portions of the history and the exam. I was present during the critical portion of medical decision making, and I discussed the case with the resident. I generally agree with the findings and plan. Patient was discussed in multidisciplinary rounds, I removed the patient's Chilli cath. Creatinine still worsening however no signs of volume overload. Stable for downgrade out of ICU to telemetry status. Subjective 82 y/o M found in bed this AM resting comfortably in NAD. No reported overnight events. Pt's cognition seems about same today. Oriented to place, season, and self. States feels good overall. Only complaint is of RN's not letting him go to restroom by himself. No other acute concerns or complaints. Review of Systems Review of Systems: All systems reviewed & are unremarkable except as noted in HPI & below Physical Exam Constitutional: WD/WN, vitals as above ENMT: external ear and nose normal, oropharynx normal Respiratory: normal respiratory effort, lungs clear to auscultation Cardiovascular: RRR, no murmur, no edema Gastrointestinal (Abdomen): normal bowel sounds, soft, nontender, no hepatosplenomegaly Skin: no rashes, warm and dry Psychiatric: A+Ox3, euthymic affect Results & Data Vital Signs (Past 12 Hours) Vital Signs Temp Pulse Pulse Resp BP BP Pulse Ox 09/24/18 05:00 94 H 20 120/61 92 09/24/18 04:00 36.4 C L 89 20 110/46 L 112/68 94 09/24/18 03:00 73 18 122/56 L 92 09/24/18 02:00 80 16 116/48 L 97 09/24/18 01:00 83 17 135/59 L 97 09/24/18 00:00 37 C 86 80 18 112/47 L 99 09/23/18 23:00 83 16 112/50 L 99 09/23/18 22:00 81 18 110/52 L 115/79 96 09/23/18 21:00 37 C 82 18 121/52 L 124/70 96 Laboratory Results Laboratory Results - last 24 hr 09/22/18 09/22/18 09/22/18 03:56 08:03 14:26 WBC RBC Hgb Hct MCV MCH MCHC RDW Std Deviation RDW Coeff of Sandra Plt Count MPV Immature Gran % (Auto) Neut % (Auto) Lymph % (Auto) [place] % (Auto) Eos % (Auto) Baso % (Auto) Immature Gran # (Auto) Neut # (Auto) Lymph # (Auto) [place] # (Auto) Eos # (Auto) Baso # (Auto) PT INR APTT PTT Ratio Specimen Type Cancelled Cancelled Cancelled Sample Site Cancelled Cancelled Cancelled Patient Temperature Cancelled Cancelled Cancelled POC pH Cancelled Cancelled Cancelled POC pCO2 Cancelled Cancelled Cancelled POC pO2 Cancelled Cancelled Cancelled POC HCO3 Cancelled Cancelled Cancelled POC Total CO2 Cancelled Cancelled Cancelled POC Base Excess Cancelled Cancelled Cancelled O2 Sat Pulse Oximetry Cancelled Cancelled Cancelled ABG pH (Temp Correct) Cancelled Cancelled Cancelled ABG pCO2 (Temp Corrct Cancelled Cancelled Cancelled POC ABG pO2 at Pt Temp Cancelled Cancelled Cancelled POC ABG O2 Sat Cancelled Cancelled Cancelled Gunner Test Cancelled Cancelled Cancelled Set Respiration Rate Cancelled Cancelled Cancelled O2 Delivery Device Cancelled Cancelled Cancelled POC O2 Rate Cancelled Cancelled Cancelled Minute Ventilation Cancelled Cancelled Cancelled Vent Mode Cancelled Cancelled Cancelled Vent Setting Cancelled Cancelled Cancelled Spontaneous Rate Cancelled Cancelled Cancelled FiO2 (liters per min) Cancelled Cancelled Cancelled POC FiO2 Cancelled Cancelled Cancelled Tidal Volume Cancelled Cancelled Cancelled Spontaneous Tidal Vol Cancelled Cancelled Cancelled End Tidal CO2 Cancelled Cancelled Cancelled PEEP Cancelled Cancelled Cancelled High PEEP Setting Cancelled Cancelled Cancelled Low PEEP Setting Cancelled Cancelled Cancelled Pressure Support Cancelled Cancelled Cancelled POC Pressure Suppt Cancelled Cancelled Cancelled Pressure Support Vent Cancelled Cancelled Cancelled Pressure High Cancelled Cancelled Cancelled Time High Cancelled Cancelled Cancelled Time Low Cancelled Cancelled Cancelled EPAP Cancelled Cancelled Cancelled IPAP Cancelled Cancelled Cancelled Sodium Potassium Chloride Carbon Dioxide Anion Gap BUN Creatinine Est Cr Clr Drug Dosing Est GFR ( Amer) Est GFR (Non-Af Amer) BUN/Creatinine Ratio Glucose POC Glucose POC Glucose (other) Calcium Ionized Calcium Phosphorus Magnesium Specimen Hemolysis 09/22/18 09/23/18 09/23/18 19:47 02:09 08:07 WBC RBC Hgb Hct MCV MCH MCHC RDW Std Deviation RDW Coeff of Sandra Plt Count MPV Immature Gran % (Auto) Neut % (Auto) Lymph % (Auto) [place] % (Auto) Eos % (Auto) Baso % (Auto) Immature Gran # (Auto) Neut # (Auto) Lymph # (Auto) [place] # (Auto) Eos # (Auto) Baso # (Auto) PT INR APTT PTT Ratio Specimen Type Cancelled Cancelled Cancelled Sample Site Cancelled Cancelled Cancelled Patient Temperature Cancelled Cancelled Cancelled POC pH Cancelled Cancelled Cancelled POC pCO2 Cancelled Cancelled Cancelled POC pO2 Cancelled Cancelled Cancelled POC HCO3 Cancelled Cancelled Cancelled POC Total CO2 Cancelled Cancelled Cancelled POC Base Excess Cancelled Cancelled Cancelled O2 Sat Pulse Oximetry Cancelled Cancelled Cancelled ABG pH (Temp Correct) Cancelled Cancelled Cancelled ABG pCO2 (Temp Corrct Cancelled Cancelled Cancelled POC ABG pO2 at Pt Temp Cancelled Cancelled Cancelled POC ABG O2 Sat Cancelled Cancelled Cancelled Gunner Test Cancelled Cancelled Cancelled Set Respiration Rate Cancelled Cancelled Cancelled O2 Delivery Device Cancelled Cancelled Cancelled POC O2 Rate Cancelled Cancelled Cancelled Minute Ventilation Cancelled Cancelled Cancelled Vent Mode Cancelled Cancelled Cancelled Vent Setting Cancelled Cancelled Cancelled Spontaneous Rate Cancelled Cancelled Cancelled FiO2 (liters per min) Cancelled Cancelled Cancelled POC FiO2 Cancelled Cancelled Cancelled Tidal Volume Cancelled Cancelled Cancelled Spontaneous Tidal Vol Cancelled Cancelled Cancelled End Tidal CO2 Cancelled Cancelled Cancelled PEEP Cancelled Cancelled Cancelled High PEEP Setting Cancelled Cancelled Cancelled Low PEEP Setting Cancelled Cancelled Cancelled Pressure Support Cancelled Cancelled Cancelled POC Pressure Suppt Cancelled Cancelled Cancelled Pressure Support Vent Cancelled Cancelled Cancelled Pressure High Cancelled Cancelled Cancelled Time High Cancelled Cancelled Cancelled Time Low Cancelled Cancelled Cancelled EPAP Cancelled Cancelled Cancelled IPAP Cancelled Cancelled Cancelled Sodium Potassium Chloride Carbon Dioxide Anion Gap BUN Creatinine Est Cr Clr Drug Dosing Est GFR ( Amer) Est GFR (Non-Af Amer) BUN/Creatinine Ratio Glucose POC Glucose POC Glucose (other) Calcium Ionized Calcium Phosphorus Magnesium Specimen Hemolysis 09/23/18 09/23/18 09/23/18 08:07 08:07 11:03 WBC 10.06 RBC 3.20 L Hgb 9.4 L Hct 28.0 L MCV 87.5 MCH 29.4 MCHC 33.6 RDW Std Deviation 52.0 H RDW Coeff of Sandra 16.3 H Plt Count 238 MPV 9.6 Immature Gran % (Auto) 0.2 Neut % (Auto) 89.1 Lymph % (Auto) 7.5 [place] % (Auto) 3.2 Eos % (Auto) 0.0 Baso % (Auto) 0.0 Immature Gran # (Auto) 0.02 Neut # (Auto) 8.97 H Lymph # (Auto) 0.75 L [place] # (Auto) 0.32 Eos # (Auto) 0.00 Baso # (Auto) 0.00 PT INR APTT PTT Ratio Specimen Type Cancelled Sample Site Cancelled Art Line Patient Temperature Cancelled POC pH Cancelled 7.44 POC pCO2 Cancelled 34 L POC pO2 Cancelled 75 L POC HCO3 Cancelled 24 POC Total CO2 Cancelled 25 POC Base Excess Cancelled -1.0 O2 Sat Pulse Oximetry Cancelled ABG pH (Temp Correct) Cancelled ABG pCO2 (Temp Corrct Cancelled POC ABG pO2 at Pt Temp Cancelled POC ABG O2 Sat Cancelled 97.0 H Gunner Test Cancelled NA Set Respiration Rate Cancelled O2 Delivery Device Cancelled Ventilator POC O2 Rate Cancelled 12 Minute Ventilation Cancelled 4.7 Vent Mode Cancelled Vent Setting Cancelled Spontaneous Rate Cancelled FiO2 (liters per min) Cancelled POC FiO2 Cancelled Tidal Volume Cancelled 450 Spontaneous Tidal Vol Cancelled End Tidal CO2 Cancelled PEEP Cancelled 8 High PEEP Setting Cancelled Low PEEP Setting Cancelled Pressure Support Cancelled POC Pressure Suppt Cancelled Pressure Support Vent Cancelled Pressure High Cancelled Time High Cancelled Time Low Cancelled EPAP Cancelled IPAP Cancelled Sodium Potassium Chloride Carbon Dioxide Anion Gap BUN Creatinine Est Cr Clr Drug Dosing Est GFR ( Amer) Est GFR (Non-Af Amer) BUN/Creatinine Ratio Glucose POC Glucose POC Glucose (other) Calcium Ionized Calcium Phosphorus Magnesium Specimen Hemolysis 09/23/18 09/23/18 09/23/18 11:03 11:03 12:00 WBC RBC Hgb Hct MCV MCH MCHC RDW Std Deviation RDW Coeff of Sandra Plt Count MPV Immature Gran % (Auto) Neut % (Auto) Lymph % (Auto) [place] % (Auto) Eos % (Auto) Baso % (Auto) Immature Gran # (Auto) Neut # (Auto) Lymph # (Auto) [place] # (Auto) Eos # (Auto) Baso # (Auto) PT 11.8 INR 1.2 H APTT PTT Ratio Specimen Type Sample Site Patient Temperature POC pH POC pCO2 POC pO2 POC HCO3 POC Total CO2 POC Base Excess O2 Sat Pulse Oximetry ABG pH (Temp Correct) ABG pCO2 (Temp Corrct POC ABG pO2 at Pt Temp POC ABG O2 Sat Gunner Test Set Respiration Rate O2 Delivery Device POC O2 Rate Minute Ventilation Vent Mode Vent Setting Spontaneous Rate FiO2 (liters per min) POC FiO2 Tidal Volume Spontaneous Tidal Vol End Tidal CO2 PEEP High PEEP Setting Low PEEP Setting Pressure Support POC Pressure Suppt Pressure Support Vent Pressure High Time High Time Low EPAP IPAP Sodium Potassium Chloride Carbon Dioxide Anion Gap BUN Creatinine Est Cr Clr Drug Dosing Est GFR ( Amer) Est GFR (Non-Af Amer) BUN/Creatinine Ratio Glucose POC Glucose POC Glucose (other) 154 H Calcium Ionized Calcium Phosphorus 4.3 Magnesium 2.4 Specimen Hemolysis 09/23/18 09/23/18 09/23/18 14:58 14:58 14:58 WBC RBC Hgb Hct MCV MCH MCHC RDW Std Deviation RDW Coeff of Sandra Plt Count MPV Immature Gran % (Auto) Neut % (Auto) Lymph % (Auto) [place] % (Auto) Eos % (Auto) Baso % (Auto) Immature Gran # (Auto) Neut # (Auto) Lymph # (Auto) [place] # (Auto) Eos # (Auto) Baso # (Auto) PT 11.7 INR 1.2 H APTT 35.6 H PTT Ratio 1.3 Specimen Type Sample Site Patient Temperature POC pH POC pCO2 POC pO2 POC HCO3 POC Total CO2 POC Base Excess O2 Sat Pulse Oximetry ABG pH (Temp Correct) ABG pCO2 (Temp Corrct POC ABG pO2 at Pt Temp POC ABG O2 Sat Gunner Test Set Respiration Rate O2 Delivery Device POC O2 Rate Minute Ventilation Vent Mode Vent Setting Spontaneous Rate FiO2 (liters per min) POC FiO2 Tidal Volume Spontaneous Tidal Vol End Tidal CO2 PEEP High PEEP Setting Low PEEP Setting Pressure Support POC Pressure Suppt Pressure Support Vent Pressure High Time High Time Low EPAP IPAP Sodium 135 L Potassium 3.8 Chloride 102 Carbon Dioxide 25 Anion Gap 8.0 BUN 30 H Creatinine 2.05 H Est Cr Clr Drug Dosing 31.5 Est GFR ( Amer) 33.7 Est GFR (Non-Af Amer) 29.1 BUN/Creatinine Ratio 14.7 Glucose 145 H POC Glucose POC Glucose (other) Calcium 8.4 L Ionized Calcium 1.02 L Phosphorus Magnesium 2.4 Specimen Hemolysis 09/23/18 09/23/18 09/23/18 18:37 20:49 20:49 WBC RBC Hgb Hct MCV MCH MCHC RDW Std Deviation RDW Coeff of Sandra Plt Count MPV Immature Gran % (Auto) Neut % (Auto) Lymph % (Auto) [place] % (Auto) Eos % (Auto) Baso % (Auto) Immature Gran # (Auto) Neut # (Auto) Lymph # (Auto) [place] # (Auto) Eos # (Auto) Baso # (Auto) PT 11.9 INR 1.2 H APTT 29.9 PTT Ratio 1.1 Specimen Type Sample Site Patient Temperature POC pH POC pCO2 POC pO2 POC HCO3 POC Total CO2 POC Base Excess O2 Sat Pulse Oximetry ABG pH (Temp Correct) ABG pCO2 (Temp Corrct POC ABG pO2 at Pt Temp POC ABG O2 Sat Gunner Test Set Respiration Rate O2 Delivery Device POC O2 Rate Minute Ventilation Vent Mode Vent Setting Spontaneous Rate FiO2 (liters per min) POC FiO2 Tidal Volume Spontaneous Tidal Vol End Tidal CO2 PEEP High PEEP Setting Low PEEP Setting Pressure Support POC Pressure Suppt Pressure Support Vent Pressure High Time High Time Low EPAP IPAP Sodium 136 Potassium 4.1 Chloride 101 Carbon Dioxide 24 Anion Gap 10.0 BUN 34 H Creatinine 2.27 H Est Cr Clr Drug Dosing 28.4 Est GFR ( Amer) 29.8 Est GFR (Non-Af Amer) 25.7 BUN/Creatinine Ratio 14.9 Glucose 152 H POC Glucose POC Glucose (other) 145 H Calcium 8.8 Ionized Calcium Phosphorus Magnesium 2.5 H Specimen Hemolysis 09/23/18 09/24/18 09/24/18 20:49 01:13 04:54 WBC RBC Hgb Hct MCV MCH MCHC RDW Std Deviation RDW Coeff of Sandra Plt Count MPV Immature Gran % (Auto) Neut % (Auto) Lymph % (Auto) [place] % (Auto) Eos % (Auto) Baso % (Auto) Immature Gran # (Auto) Neut # (Auto) Lymph # (Auto) [place] # (Auto) Eos # (Auto) Baso # (Auto) PT INR APTT PTT Ratio Specimen Type Sample Site Patient Temperature POC pH POC pCO2 POC pO2 POC HCO3 POC Total CO2 POC Base Excess O2 Sat Pulse Oximetry ABG pH (Temp Correct) ABG pCO2 (Temp Corrct POC ABG pO2 at Pt Temp POC ABG O2 Sat Gunner Test Set Respiration Rate O2 Delivery Device POC O2 Rate Minute Ventilation Vent Mode Vent Setting Spontaneous Rate FiO2 (liters per min) POC FiO2 Tidal Volume Spontaneous Tidal Vol End Tidal CO2 PEEP High PEEP Setting Low PEEP Setting Pressure Support POC Pressure Suppt Pressure Support Vent Pressure High Time High Time Low EPAP IPAP Sodium 137 Potassium 4.1 Chloride 103 Carbon Dioxide 22 Anion Gap 13.0 H BUN 38 H Creatinine 2.46 H Est Cr Clr Drug Dosing 26.4 Est GFR ( Amer) 27.0 Est GFR (Non-Af Amer) 23.3 BUN/Creatinine Ratio 15.5 Glucose 145 H POC Glucose 138 H POC Glucose (other) Calcium 8.4 L Ionized Calcium 1.00 L Phosphorus 5.3 H D Magnesium 2.4 Specimen Hemolysis 09/24/18 09/24/18 09/24/18 04:56 04:56 05:10 WBC 11.94 H RBC 2.95 L Hgb 8.8 L Hct 26.4 L MCV 89.5 MCH 29.8 MCHC 33.3 RDW Std Deviation 53.8 H RDW Coeff of Sandra 16.5 H Plt Count 224 MPV 10.0 Immature Gran % (Auto) 0.2 Neut % (Auto) 84.3 Lymph % (Auto) 8.0 [place] % (Auto) 7.4 Eos % (Auto) 0.0 Baso % (Auto) 0.1 Immature Gran # (Auto) 0.02 Neut # (Auto) 10.08 H Lymph # (Auto) 0.95 L [place] # (Auto) 0.88 H Eos # (Auto) 0.00 Baso # (Auto) 0.01 PT 12.8 H INR 1.3 H APTT 30.7 PTT Ratio 1.1 Specimen Type Sample Site Patient Temperature POC pH POC pCO2 POC pO2 POC HCO3 POC Total CO2 POC Base Excess O2 Sat Pulse Oximetry ABG pH (Temp Correct) ABG pCO2 (Temp Corrct POC ABG pO2 at Pt Temp POC ABG O2 Sat Gunner Test Set Respiration Rate O2 Delivery Device POC O2 Rate Minute Ventilation Vent Mode Vent Setting Spontaneous Rate FiO2 (liters per min) POC FiO2 Tidal Volume Spontaneous Tidal Vol End Tidal CO2 PEEP High PEEP Setting Low PEEP Setting Pressure Support POC Pressure Suppt Pressure Support Vent Pressure High Time High Time Low EPAP IPAP Sodium Potassium Chloride Carbon Dioxide Anion Gap BUN Creatinine Est Cr Clr Drug Dosing Est GFR ( Amer) Est GFR (Non-Af Amer) BUN/Creatinine Ratio Glucose POC Glucose 145 H POC Glucose (other) Calcium Ionized Calcium Phosphorus Magnesium Specimen Hemolysis Medications Administered Current Inpatient Medications Aspirin (Ecotrin Ectab) 81 mg PO DAILY DAYSI Stop: 10/24/18 08:59 Last Admin: 09/24/18 08:40 Dose: 81 mg Documented by: Atorvastatin Calcium (Lipitor) 40 mg PO HS DAYSI Stop: 10/22/18 20:59 Last Admin: 09/23/18 22:39 Dose: 40 mg Documented by: Bisacodyl (Dulcolax) 5 mg PO DAILY PRN PRN Reason: Constipation Stop: 10/24/18 08:27 Last Admin: 09/24/18 08:44 Dose: 5 mg Documented by: Clopidogrel Bisulfate (Plavix) 75 mg PO DAILY DAYSI Stop: 10/25/18 08:59 Famotidine (Pepcid) 20 mg PO Q24H DAYSI Stop: 10/24/18 08:59 Last Admin: 09/24/18 08:40 Dose: 20 mg Documented by: Heparin Sodium (Beef Lung) (Heparin Sod 10 Unit/Ml Flush) 5 ml FLUSH PRN PRN PRN Reason: Flush Stop: 10/22/18 22:49 Heparin Sodium (Porcine) (Heparin Sodium (Porcine)) 5,000 units SQ Q12 DAYSI Stop: 10/24/18 08:59 Last Admin: 09/24/18 07:37 Dose: 5,000 units Documented by: Parenteral Electrolytes (Normosol-R) 1,000 mls @ 75 mls/hr IV .[id number] DAYSI Stop: 10/23/18 18:59 Last Infusion: 09/24/18 08:40 Dose: 75 mls/hr Documented by: Ioversol (Optiray 320 125ml) 125 ml IV ONCE PRN PRN Reason: Interaction Checking Stop: 09/25/18 22:31 Last Admin: 09/21/18 22:32 Dose: 119 ml Documented by: Resident Activity Tracking Resident Involvement: Resident Care Provided Care Provided: Adult Hospital Medicine
[2018-09-24] MEDS ORDERED: BISACODYL 5 MG TABEC PO PRN (08:28)
[2018-09-24] MEDS ORDERED: DOCUSATE SODIUM 100 MG CAP PO ONE (08:28)
--- NOTE | 2018-09-24 08:40 | Neurology Progress Note ---
Date of Service September 24, 2018 Assessment & Plan (1) Anoxic encephalopathy: Mild anoxic encephalopathy. Clinical status and prognosis for recovery improved. Going forward, I would expect that he would display some ongoing cognitive difficulty as a result of cerebral anoxia. His neurological status should be reevaluated in the outpatient setting. As discussed previously, a brain MRI to assess the observed focal slowing on his last EEG would be of some value and may also potentially assess for anoxic cerebral injury or subacute stroke. If the above brain MRI can be completed I will review and make further recommendations if necessary at that time. Subjective Follow-up for anoxic encephalopathy The patient is a 82-year-old male status post cardiac arrest, status post hypothermia protocol, currently extubated, alert, and interactive. Somewhat inattentive this morning with slow processing speed. Does not have any specific complaints such as headache, vision loss, or focal weakness. Has not had any observed seizure activity. EEG completed yesterday revealed mild encephalopathy and nonspecific left frontotemporal slowing. A CT of the head completed on September 21 revealed only patchy white matter hypodensities consistent with chronic microvascular ischemic disease. Otherwise, no obvious focal or structural abnormalities. Review of Systems Constitutional: no fever and no weakness Eyes: no blind spots and no diplopia Neurologic: + unsteadiness and + confusion; no localized weakness, no loss of sensation, no seizure-like activity and no headache(s) Physical Exam Physical Exam: Patient is alert and oriented to person and Center [facility] [place]. Not oriented to day of the week or date. Processing speed slow. Attention is modestly reduced. Remote memory intact. Memory for recent events pertaining to his history of present illness is impaired. Patient exhibits a normal spontaneous speech pattern. He is able to name objects and repeat phrases. He is able to read simple text. Language comprehension normal. Visual triplett full to confrontation. Visual acuity normal. Pupils equal round reactive to light and accommodation. Eye movements normal. No nystagmus or gaze preference. Facial sensation intact. There is no facial droop or weakness. Hearing intact. Palate elevates to midline. Shoulder shrug intact. Tongue protrudes to midline. Sensation intact to all modalities in all 4 limbs. Deep tendon reflexes are intact and symmetrical for the arms and legs. There is no dysdiadochokinesia or dysmetria with [id number] or [id number] bilaterally. Results & Data Vital Signs (Past 12 Hours) Vital Signs Temp Pulse Pulse Resp BP BP Pulse Ox 09/24/18 05:00 94 H 20 120/61 92 09/24/18 04:00 36.4 C L 89 20 110/46 L 112/68 94 09/24/18 03:00 73 18 122/56 L 92 09/24/18 02:00 80 16 116/48 L 97 09/24/18 01:00 83 17 135/59 L 97 09/24/18 00:00 37 C 86 80 18 112/47 L 99 09/23/18 23:00 83 16 112/50 L 99 09/23/18 22:00 81 18 110/52 L 115/79 96 09/23/18 21:00 37 C 82 18 121/52 L 124/70 96 Laboratory Results Recently completed labs reviewed. WBC 11.94, hemoglobin 8.8, hematocrit 26.4, platelet count 224, sodium 137, potassium 4.1, BUN 38, creatinine 2.46, glucose 145, calcium 8.4, magnesium 2.4 Diagnostic Findings Electrocardiogram completed yesterday revealed sinus rhythm with A-V dissociation and accelerated junctional rhythm with occasional premature ventricular complexes, [address] of the head completed on September 21, 2018 is as described above.
[2018-09-24] MEDS ORDERED: FAMOTIDINE 20 MG TAB PO SCH (09:00)
[2018-09-24] MEDS ORDERED: ASPIRIN 81 MG ECTAB PO SCH (09:00)
[2018-09-24] MEDS ORDERED: NITROGLYCERIN SL 0.4 MG/TAB TAB SL PRN (12:27)
[2018-09-24] MEDS ORDERED: HYDROCORTISONE HC 2.5% CRM 30GM TUBE EXT PRN (12:27)
--- NOTE | 2018-09-24 14:25 | Hospitalist Progress Note ---
Date of Service September 24, 2018 Assessment & Plan (1) CAD (coronary artery disease): Prior cath in 07/2018 without ability to intervene. - Troponins negative x 3 - Cardiology following - On 09/24, he had 7/10 chest pain with some shortness of breath. EKG is stable from priors. Troponins pending. Likely MSK from his CPR. Will treat with Tylenol. (2) Pneumonia: Concern for aspiration either as inciting event (less likely) or during his code. - Was on ceftriaxone per ICU team - Stopped by 09/24. - Will get repeat CXR today (09/24) for mild hypoxemia (87% on room air) and some subjective shortness of breath (3) JANIS (acute kidney injury): Baseline Cr ~1.1-1.2. Cr on admission was 1.9. Likely ATN from hypoperfusion during code. - Support BP - Monitor Cr - By 09/24, his Cr was actually up to 2.5; BUN 38. Still believe this could be ATN. Will get bladder U/S to ensure no blockage given his mild hematuria. Will get urine lytes. (4) Cardiac arrest: Likely 20-30 minutes of CPR prior to ROSC in the ED. At least 15 minutes of CPR prior to EMT arrival at home. Unclear inciting event, though his significant cardiac history with negative troponins point toward away from an ischemic event and possibly a ventricular arrhythmia that had devolved prior to being attached to pads. - Cooling protocol wrapping up; hemodynamic support per ICU team - Neurology following - Cardiology will discuss ICD given his unexplained code (5) Anoxic encephalopathy: ROSC after 20-30 minutes of CPR. - See above (6) HTN (hypertension), benign: BP normal after being on pressors during his cooling. - Holding most oral meds (7) DVT prophylaxis: Heparing 5000 units Q12h Subjective Reported 7/10 chest pain the the afternoon with some dizziness. Review of Systems Review of Systems: All systems reviewed & are unremarkable except as noted in HPI & below Physical Exam Constitutional: WD/WN, vitals as above + acute distress Eyes: EOM intact bilaterally; no conjunctival abnormality Neck: trachea midline, no thyromegaly normal visual inspection Respiratory: normal respiratory effort, lungs clear to auscultation no respiratory distress Cardiovascular: RRR, no murmur, no edema Gastrointestinal (Abdomen): Inspection/Auscultation: abdomen normal to inspection; abdomen not distended Musculoskeletal: no cyanosis or clubbing, extremities motor strength 5/5 Skin: no rashes, warm and dry Neurologic: moves all extremities and + obtunded; + not awake Psychiatric: Orientation: alert, oriented to person and cooperative Results & Data Vital Signs (Past 12 Hours) Vital Signs Temp Pulse Resp BP BP Pulse Ox 09/24/18 12:29 36.7 C 97 H 18 121/73 94 09/24/18 11:00 98 H 18 113/71 95 09/24/18 10:00 86 19 100/63 96 09/24/18 09:00 87 18 95 09/24/18 08:00 36.4 C L 86 21 115/48 L 100 09/24/18 07:00 94 H 21 126/55 L 94 09/24/18 05:00 94 H 20 120/61 92 09/24/18 04:00 36.4 C L 89 20 110/46 L 112/68 94 09/24/18 03:00 73 18 122/56 L 92 PG Care Time/CCT Total # of Minutes Spent Total Time Spent with Patient: Total time spent is greater than 50% in coordination of care (as documented) at patient's floor/unit and/or counseling patient: (1) CAD (coronary artery disease) Coronary Disease-Associated Artery/Lesion type: [place] artery [place] vs. transplanted heart: [place] heart Associated angina: with unstable angina Qualified Code(s): I25.110 - Atherosclerotic heart disease of [place] coronary artery with unstable angina pectoris
--- NOTE | 2018-09-24 14:57 | XRay Report ---
XR chest 1V portable CLINICAL HISTORY: Hypoxemia COMPARISON STUDY: Chest CT September 21, 2018. Chest radiograph September 23, 2018. FINDINGS: Note is made of median sternotomy wires and clips from bypass grafting. There is no pneumot horax. Endotracheal and nasogastric tubes have been removed. Small bilateral pleural effusions and bi basilar opacities persist. Mild pulmonary edema persists. IMPRESSION: 1. No change in mild pulmonary edema. 2. Persistent small bilateral pleural effusions with bibasilar opacities. Electronically signed by: Carlos Russell M.D. 09/24/2018 2:56 PM
[2018-09-24] MEDS: MIDODRINE HCL 2.5 MG TAB PO SCH ×2 (14:59→15:50)
[2018-09-24 15:15] LABS: iSTAT Arterial Blood Gas HCO3 24 meg/L (19-24); iSTAT Arterial Blood Gas pCO2 40 mmHg (35-46); iSTAT Arterial Blood Gas pH 7.39 (7.35-7.45); iSTAT Carbon Dioxide 25 mEq/l (24-31); iSTAT Site Art Line
[2018-09-24] MEDS ORDERED: ACETAMINOPHEN 325 MG TAB PO PRN (15:38)
[2018-09-24 16:03] LABS: Appearance Urine Cloudy (Clear); Bilirubin Urine Negative (Negative); Blood Urine 3+ (Negative); Color Urine Red; Glucose Urine UA Negative (Negative); Ketones Urine Negative (Negative); Leukocyte Esterase Urine Trace (Negative); Nitrite Urine Negative (Negative); Protein Urine 2+ (Negative); Urobilinogen Urine Negative (Negative)
[2018-09-24 16:07] LABS: Epithelial Cell Urine 0-5 /lpf (0-5)
[2018-09-24 16:08] LABS: RBC Urine >30 /hpf (0-4)
[2018-09-24 16:09] LABS: Bacteria Urine Negative (Negative)
--- NOTE | 2018-09-24 16:34 | Ultrasound Report ---
ULTRASOUND KIDNEYS AND BLADDER CLINICAL HISTORY: Low urine output. COMPARISON STUDY: Abdominal CT dated 09/21/2018. TECHNIQUE: Real-time, grayscale, and color flow sonography of the kidneys and bladder is performed. I mages are reviewed in the transverse and longitudinal planes. FINDINGS: Kidneys: The kidneys are atrophic. The right kidney measures 10.1 x 4.6 x 5.3 cm and the left kidney measures 9.3 x 5.4 x 4.3 cm. There is no hydronephrosis. No shadowing renal calculi are identified. There is no sonographic evidence of contour deforming renal mass lesion. No perinephric fluid is iden tified. Bladder: The bladder is decompressed around a Mittal catheter and could not be evaluated. IMPRESSION: 1. The kidneys are atrophic and without hydronephrosis. 2. The bladder was decompressed around a Mittal catheter and could not be assessed. Electronically signed by: Glenn Pena M.D. 09/24/2018 4:33 PM
[2018-09-24] MEDS ORDERED: COUGH DROP (SUGAR FREE) LOZ 24 LOZ/1 BOX BUCCAL PRN (16:42)
--- NOTE | 2018-09-24 16:49 | Cardiology Progress Note ---
Date of Service September 24, 2018 Assessment & Plan (1) Cardiac arrest: 2. Coronary artery disease--5 vessel CABG, RCA stents; cardiac cath 07/26/18 with unsuccessful attempt to intervene on PAV to PDA Y graft stenosis 3. Ischemic cardiomyopathy 4. JANIS 5. 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 Aortic stenosis/Mitral regurgitation 7. Anemia Hemodynamically and electrically stable. Mild transient chest discomfort this afternoon. suspect chest wall post CPR but trop now mildly elevated. Well perfused with mild congestion on exam, +5L, up 5Kg since admit. Modest urine output with rising SCr - likely 2/2 to ATN -- Continue to trend troponin until peak. -- Would hold off on anticoagulation unless recurrent symptoms, trop > 2, new ST changes -- Continue DAPT with ASA/Plavix -- Recommend starting diuretics for congestion - 40 IV lasix x1 today. -- Start low dose beta ross metoprolol 12.5 bid -- Continue statin -- Will discuss ICD pending clinical course Subjective Feeling well. Transferred out of ICU this morning. Denies shortness of breath. Intermittently tearful. Had chest pain this afternoon. ECG with ST changes. Trop mildly elevated at 0.202. Tele reviewed - looks to be sinus arrhythmia with PACs. No kristen or ventricular arrhythmias. Review of Systems Review of Systems: All systems reviewed & are unremarkable except as noted in HPI & below Physical Exam Physical Exam: General: Comfortable, no acute distress HEENT: Sclerae anicteric, mucous membranes moist, RT IJ dressing with serosan fluid Lungs: Decreased BS at bases Cardiac: Regular rate and rhythm, 3/6 JOHANNA Abdomen: Soft, nontender, nondistended, positive bowel sounds. Extremities: Warm, well perfused, 2+ edema Neuro: Nonfocal Psych: Alert, answers questions appropriately. Results & Data Vital Signs (Past 12 Hours) Vital Signs Temp Pulse Pulse Resp BP BP Pulse Ox 09/24/18 16:00 36.4 C L 81 99 H 20 122/84 97 09/24/18 12:29 36.7 C 97 H 18 121/73 94 09/24/18 11:00 98 H 18 113/71 95 09/24/18 10:00 86 19 100/63 96 09/24/18 09:00 87 18 95 09/24/18 08:00 36.4 C L 86 21 115/48 L 100 09/24/18 07:00 94 H 21 126/55 L 94 09/24/18 05:00 94 H 20 120/61 92
[2018-09-24 20:34] LABS: Creatinine Clr Calc Pharmacy 23.2 ml/min; Est GFR (African American) 23.1
[2018-09-24 20:44] LABS: Troponin I 0.18 ng/ml (0-0.045)
[2018-09-24] MEDS: RANOLAZINE 500 MG ER TAB PO SCH (21:17)
[2018-09-24] MEDS: ATORVASTATIN 40 MG TAB PO SCH (21:17)
[2018-09-24] MEDS: DOCUSATE SODIUM/SENNA 50/8.6MG TAB PO SCH (22:25)
[2018-09-25 07:14] LABS: Eosinophils # (auto) 0.04 K/uL (0-0.5); Eosinophils % (auto) 0.5 %; Hematocrit (blood only) 27.9 % (42-52); Hemoglobin 9.2 g/dL (14.0-18.0); Immature Granulocytes # (auto) 0.03 K/uL (0.00-0.02); Immature Granulocytes % (auto) 0.4 %; Lymphocytes % (auto) 15.6 %; Mean Corpuscular Volume 88.3 fL (80-100); Mean Platelet Volume 10.2 fL (7.4-10.4); Monocytes # (auto) 0.62 K/uL (0.11-0.59); Monocytes % (auto) 7.4 %; Neutrophils # (auto) 6.36 K/uL (1.4-6.5); Neutrophils % (auto) 76.1 %; Platelet Count 223 K/uL (130-400); RDW Coefficient of Variation 16.6 % (11.5-14.5); RDW Standard Deviation 53.4 fL (36.4-46.3); Red Blood Count 3.16 M/uL (4.7-6.1); White Blood Count 8.35 K/uL (4.8-10.8)
[2018-09-25 07:50] LABS: Albumin Level 3.1 gm/dl (3.4-5.0); BUN Creatinine Ratio 15.7 (10-20); Calcium 8.7 mg/dl (8.5-10.1); Creatinine Clr Calc Pharmacy 22.2 ml/min; Est GFR (African American) 21.9; Est GFR (Non-African American) 18.9; Potassium 3.5 mmol/L (3.5-5.1)
[2018-09-25 07:53] LABS: Bilirubin,Total 1.3 mg/dl (0.2-1); Total Protein 6.1 gm/dl (6.4-8.2)
[2018-09-25] MEDS ORDERED: CLOPIDOGREL BISULFATE 75 MG TAB PO SCH (09:00)
[2018-09-25] MEDS: FAMOTIDINE 20 MG TAB PO SCH (09:12)
[2018-09-25] MEDS: CHOLECALCIFEROL 1,000 UNITS TAB PO SCH (09:12)
[2018-09-25] MEDS: RANOLAZINE 500 MG ER TAB PO SCH ×2 (09:12→20:07)
[2018-09-25] MEDS: ASPIRIN 81 MG CHEW PO SCH (09:12)
[2018-09-25] MEDS: CYANOCOBALAMIN 500 MCG TABLET (VITAMIN B-12) PO SCH (09:12)
[2018-09-25] MEDS: DOCUSATE SODIUM/SENNA 50/8.6MG TAB PO SCH ×2 (09:12→20:07)
[2018-09-25] MEDS: CLOPIDOGREL BISULFATE 75 MG TAB PO SCH (09:13)
[2018-09-25] MEDS: HEPARIN SOD 5,000 UNIT/0.5 ML VIAL SQ SCH ×2 (09:13→20:08)
[2018-09-25] MEDS: MIDODRINE HCL 2.5 MG TAB PO SCH ×3 (09:13→17:16)
--- NOTE | 2018-09-25 11:51 | Cardiology Progress Note ---
Date of Service September 25, 2018 Assessment & Plan (1) Cardiac arrest: Hemodynamically he is doing well, he is somewhat confused and I believe he has some element of anoxic encephalopathy. He has had no significant arrhythmias on monitoring. (2) Ischemic cardiomyopathy: He has an ischemic cardiomyopathy, ejection fraction in the 35% range although some of that could be stunning. We will need to consider an ICD although I am not sure we know what the rhythm was at the time of his event. Per the emergency room notes he was asystolic upon the arrival of EMS, whether this was ventricular fibrillation which terminated or whether it is primary asy stole due to metabolic abnormality is not clear. (3) Atrial fibrillation: Although a little bit hard to tell from telemetry it seems that he has been atrial fibrillation since September 24, possibly a little bit earlier. Rate is adequately controlled. We need to consider anticoagulation if it continues, although there is some risk with his CPR and his antiplatelet agents. Subjective He is complaining of chest discomfort today, it is right-sided, it is related to movement and and is easily reproduced by palpation over the area. He does not have other types of chest discomfort. He evidently has had this before but he does not recall it. He has no shortness of breath. Physical Exam Physical Exam: Constitutional: Alert, cooperative and in no distress. Pulmonary: Crackles bilaterally. Cardiac: Irregular rhythm with frequent premature beats, no murmur, gallop or rub. Abdomen: Soft, nontender with normal bowel sounds. Extremities: No edema. Skin: No rash, ecchymoses or petechiae. Results & Data Vital Signs (Past 12 Hours) Vital Signs Temp Pulse Resp BP BP Pulse Ox 09/25/18 07:31 36.7 C 107 H 22 115/81 97 09/25/18 03:53 36.8 C 103 H 19 99/73 L 93 Diagnostic Findings Telemetry: Atrial fibrillation, frequent premature ventricular beats, no ventricular tachycardia. Rate overall around in the 90s.
--- NOTE | 2018-09-25 12:24 | Hospitalist Progress Note ---
Date of Service September 25, 2018 Assessment & Plan (1) CAD (coronary artery disease): Prior cath in 07/2018 without ability to intervene. - Troponins negative x 3 - Cardiology following - On 09/24, he had 7/10 chest pain with some shortness of breath. EKG is stable from priors. Troponin elevated to 0.202-->0.180. Likely MSK from his CPR. Will treat with Tylenol. - Continue trending down troponin.Will check CPK. (2) Pneumonia: Concern for aspiration either as inciting event (less likely) or during his code. - Was on ceftriaxone per ICU team - Stopped by 09/24. - Repeated CXR (09/24) for mild hypoxemia (87% on room air) showed no changes in mild pulmonary edema, and persistant small bilateral pleural effusions with bilateral opacities. - Pt denies shortness of breath today. WBC improved since yesterday from 11.94-->8.35. No left shift, Lungs clear on auscultation, even though breath sound is distant at the base bilaterally. (3) JANIS (acute kidney injury): Baseline Cr ~1.1-1.2. Cr on admission was 1.9. Likely ATN from hypoperfusion during code. - Support BP - Monitor Cr - Cr was actually up to 2.5-->2.8-->2.93; BUN 38-->46. - It could be ATN due to low cardiac perfusion during the cardiac arrest. - Since pt has Mittal catheter it was noted mild hematuria. Plan to irrigate the bladder as per recommendations of Dr. Tobar urologist.Checking PSA for BPH. - Discussed pt arrhythmia with need for heparin drip in situation of ongoing mild hematuria with both urology and cardiology . It is clear recommendation from cardiology and urology that pt 's risk of bleeding is much higher then getting stroke in this situation and anticoagulation of this degree is contraindicated. We will also need to stop prophylactic Heparin since pt has hematuria and continue only clopidogrel and aspirin 81. -Since pt is severely dehydrated per BUN will give one time IV NS 500 ml bolus and continue trending creatinine and GFR.Avoid nephrotoxic agents. (4) Cardiac arrest: Likely 20-30 minutes of CPR prior to ROSC in the ED. At least 15 minutes of CPR prior to EMT arrival at home. - Elevated troponin now, 0.202-->0.180 trending down. Most likely due to the CPR that was given during the cardiac arrest. - Pt has now paroxysmal afibs which he did not have before or did not know of. Due to ongoing hematuria , starting heparin drip for afibs is contraindicated. - Continue only clopidogrel and aspirin 81. - Started Metoprolol tart 12.5 mg BID to control rate better. - Due to low rate <100 bpm pt is not candidate for diltiazem or amiodarone drip. - Appreciate cardiology recommendations, they will continue to follow. - Cardiology will discuss ICD given his unexplained code (5) Anoxic encephalopathy: ROSC after 20-30 minutes of CPR. - See above (6) HTN (hypertension), benign: BP normal after being on pressors during his cooling. - Holding most oral meds (7) DVT prophylaxis: Heparin for DVT stopped due to hematuria , and started SCD-s at rest and ambulation TID with assistance. Subjective Pt seen and examined at the bedside. Pt was confused this morning stating that his family is not visiting him since he has been in the hospital. His RN reports that family is regular and they see pt several times per day.Other that this confusion pt is doing much better and he reports no chest pain or discomfort. His appetite is improving. Pt reports regular BM-s and no changes in his bowel habits. Pt is pleasant and cooperative.Pt continues to have Mittal catheter in and will try trail of void in PM today and measure PVR. Pt denies chest pain, SOB, GREENE, N/V, abdominal pain, frequency and urgency. He is complaining of chest discomfort today, it is right-sided, it is related to movement and and is easily reproduced by palpation over the area. He does not have other types of chest discomfort. He evidently has had this before but he does not recall it. He has no shortness of breath. Review of Systems Review of Systems: All systems reviewed & are unremarkable except as noted in HPI & below Physical Exam Constitutional: WD/WN, vitals as above Eyes: PERRL, conjunctivae normal, anicteric sclerae ENMT: external ear and nose normal, oropharynx normal Ears: + hearing impairment Neck: trachea midline, no thyromegaly Respiratory: normal respiratory effort, lungs clear to auscultation Cardiovascular: RRR, no murmur, no edema Chest (Breasts): normal inspection/palpation of breasts Gastrointestinal (Abdomen): normal bowel sounds, soft, nontender, no hepatosplenomegaly Musculoskeletal: no cyanosis or clubbing, extremities motor strength 5/5 Skin: no rashes, warm and dry Neurologic: patellar DTR's 2+ bilat, sensation intact Psychiatric: A+Ox3, euthymic affect Thought Content: + cognitive distortions Pt was confused this morning and delusional that his family was not visiting hime while he is in the hospital. Pt and son were in the hospital several times checking on him. When confronted by the RN that this is not the case, pt admitted that possibly his memory is clouded because of the recent cardiac arrest and he has flashback. Genitourinary: Pt has mild gross hematuria Lymphatic: no cervical or axillary lymphadenopathy Results & Data Vital Signs (Past 12 Hours) Vital Signs Temp Pulse Resp BP BP Pulse Ox 09/25/18 07:31 36.7 C 107 H 22 115/81 97 09/25/18 03:53 36.8 C 103 H 19 99/73 L 93 PG Care Time/CCT Total # of Minutes Spent Total Time Spent with Patient: Total time spent is greater than 50% in coordination of care (as documented) at patient's floor/unit and/or counseling patient: (1) CAD (coronary artery disease) Associated angina: with unstable angina Coronary Disease-Associated Artery/Lesion type: [place] artery [place] vs. transplanted heart: [place] heart Qualified Code(s): I25.110 - Atherosclerotic heart disease of [place] coronary artery with unstable angina pectoris
[2018-09-25] MEDS ORDERED: METOPROLOL TARTRATE 25 MG TAB PO SCH (12:45)
--- NOTE | 2018-09-25 13:36 | CT Scan Report ---
CT head/brain wo con CLINICAL HISTORY: 82 years-old Male presenting with confusion. TECHNIQUE: Multidetector CT imaging of the head was performed without the use of intravenous contrast . IV contrast: None. One or more dose lowering techniques were used consistent with the principles of ALARA (as low as reasonably achievable), including automatic exposure control, mA or kV adjustment t o individual patient size, and/or use of iterative reconstruction. COMPARISON: 09/21/2018. CT DOSE (mGy.cm): The estimated cumulative dose is 537.48 mGy.cm. 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 Proportional ventricular and sulcal prominence, likely age-related parenchymal volume loss. No hemorr nevin. Brain parenchyma normal in appearance with preserved santana-white differentiation. No acute flaquita torial infarct. No mass effect or midline shift. No extra-axial fluid collection. Paranasal sinuses a nd mastoid air cells clear. Calvarium intact. IMPRESSION: 1. No acute intracranial abnormality. Electronically signed by: Demetrius Salguero M.D. 09/25/2018 1:35 PM
[2018-09-25] MEDS ORDERED: SODIUM CHLORIDE 0.9% 1000ML 500 ML IV ONE (13:54)
[2018-09-25] MEDS: cefTRIAXone SODIUM 2,000 MG in DEXTROSE 5% 50 ML IV SCH (14:27)
[2018-09-25 14:40] LABS: NT Pro B Type Natriuretic Pept > 35000 pg/ml (0-1800)
[2018-09-25 14:42] LABS: Appearance Urine Cloudy (Clear); Bacteria Urine Automated Negative (Negative); Bilirubin Urine Negative (Negative); Blood Urine 3+ (Negative); Color Urine Dark Yellow; Epithelial Cell Urine Auto 20-30 /lpf (0-5); Glucose Urine UA Negative (Negative); Ketones Urine Trace (Negative); Leukocyte Esterase Urine 2+ (Negative); Nitrite Urine Negative (Negative); Protein Urine 1+ (Negative); RBC Urine Automated >30 /hpf (0-4); Specific Gravity Urine 1.029 (1.000-1.030); Urobilinogen Urine Negative (Negative)
--- NOTE | 2018-09-25 15:18 | Critical Care Progress Note ---
Date of Service September 25, 2018 Assessment & Plan (1) Admitted to intensive care unit: Reason Critically Ill: 82 y/o who initially presented with ROSC after cardiac arrest and completed therapeutic hypothermia protocol represents after syncopal episode/near arrest. PLAN: NEURO -Therapeutic hypothermia completed. Rewarming finished. -Mild anoxic encephalopathy. Pt is more alert and is able to follow simple commands. Expect some cognitive difficulty from cerebral anoxia moving forward -No evidence of seizure activity on EEG -Neuro: Clinical status and prognosis for recovery improved. Repeat CT head - No acute intracranial abnormality PULM -Sating well on RA -Aspiration pneumonitis- s/p bronch. NGTD. Completed course of Rocephin in ICU, but restarted on floors (CXR 09/24- Persistent small bilateral pleural effusions with bibasilar opacities), will cont -KAY CARDIO -Cause of initial cardiac arrest unclear. History of severe CAD with multiple admissions this year with troponin elevations. Cardiac cath in July without ability to intervene. Trop trending down. ECHO reviewed. -Repeat near arrest- Repeat trop still downtrending. Will start low dose heparin (hematuria is acknowledged) -HTN- off pressor support now. Holding home meds as still somewhat hypotensive -CAD- Cont atorvastatin, ASA, Plavix -Paroxysmal A fib- Rate is adequately controlled -Cards to discuss ICD pending clinical course Fluids/Renal: -CKD stage III- Elevated creatinine. Likely ATN from hypoperfusion. Cont trend -Still Poor UOP, cont monitor. Encouraged PO intake, will consider restart Normsol -noted to have mild hematuria in [place] -urology with plans to irrigate bladder. PSA normal ID: -Concern for aspiration, dc'd antibiotics empirically after 48 hrs but restarted on floors as above for concern of b/l opacities seen on CXR 09/24 -Cont trend fever curve. Afebrile at present GI/Nutrition: -CT Abd: Gallbladder wall thickening -Normal LFT's. Will cont trend, may require RUQ U/S in near future -Advanced to AHA diet HEME -Anemia of chronic kidney disease -Stable H/H. Noted mild hematuria. Cont trend q8h -type and screen ENDO -A1C 5.8 -ICU hyperglycemia protocol. Elevated BSG likely 2/2 stress LINES: R IJ Central venous access, PIV x3. DVT prophylaxis: Low Dose Heparin Full Code DISPO: ICU Supervising Physician Co-Signing Physician Notes Dr. Bloom was resident physician during care of patient. I separately evaluated patient for weber portions of the history and the exam. I was present during the critical portion of medical decision making, and I discussed the case with the resident. I generally agree with the findings and plan. Patient was discussed in multidisciplinary rounds. Creatinine still worsening however no signs of volume overload presently Subjective 82 y/o M coming back down to ICU after near arrest and code blue was activated this afternoon. Pt was undergoing therapy and had ?syncopal episode when put up, but came back to quickly and code blue was d/c shortly thereafter. HR was in 40s and systolic BP in 90s. Apparently, pt does not recall this event. Pt now found resting comfortably in bed in NAD. Does note some mild chest pain on R side this AM, but resolved now. Denies any respiratory complaints. Pain is reproducible with palpation. Denies any other acute concerns or complaints. Review of Systems Review of Systems: All systems reviewed & are unremarkable except as noted in HPI & below Physical Exam Constitutional: WD/WN, vitals as above ENMT: external ear and nose normal, oropharynx normal Respiratory: normal respiratory effort, lungs clear to auscultation Cardiovascular: Rate/Rhythm: + irregularly irregular Chest (Breasts): Additional Comments: CP reproducible with palpation Gastrointestinal (Abdomen): normal bowel sounds, soft, nontender, no hepatosplenomegaly Skin: no rashes, warm and dry Psychiatric: A+Ox3, euthymic affect Results & Data Vital Signs (Past 12 Hours) Vital Signs Temp Pulse Resp BP BP BP Pulse Ox 09/25/18 15:01 36.3 C L 81 20 99/72 L 99/72 L 100 09/25/18 07:31 36.7 C 107 H 22 115/81 97 09/25/18 03:53 36.8 C 103 H 19 99/73 L 93 Laboratory Results Laboratory Results - last 24 hr 09/24/18 09/24/18 09/24/18 15:40 15:40 19:59 WBC RBC Hgb Hct MCV MCH MCHC RDW Std Deviation RDW Coeff of Sandra Plt Count MPV Immature Gran % (Auto) Neut % (Auto) Lymph % (Auto) [place] % (Auto) Eos % (Auto) Baso % (Auto) Immature Gran # (Auto) Neut # (Auto) Lymph # (Auto) [place] # (Auto) Eos # (Auto) Baso # (Auto) PT INR APTT PTT Ratio Sodium Potassium Chloride Carbon Dioxide Anion Gap BUN Creatinine 2.80 H D Est Cr Clr Drug Dosing 23.2 Est GFR ( Amer) 23.1 Est GFR (Non-Af Amer) 20.0 BUN/Creatinine Ratio Glucose Calcium Total Bilirubin AST ALT Alkaline Phosphatase Total Creatine Kinase CK-MM (CK-3) CK-MB (CK-2) CK-BB (CK-1) Creatine Kinase Interp CK/CKMB % Calc Troponin I 0.180 H* NT-Pro-B Natriuret Pep Total Protein Albumin Globulin Albumin/Globulin Ratio Prostate Specific Ag Free PSA % Free PSA Urine Color Red Urine Appearance Cloudy A Urine pH 5.0 Ur Specific [place] 1.020 Urine Protein 2+ H Urine Glucose (UA) Negative Urine Ketones Negative Urine Blood 3+ H Urine Nitrite Negative Urine Bilirubin Negative Urine Urobilinogen Negative Ur Leukocyte Esterase Trace H Urine WBC (Auto) Urine RBC (Auto) U Hyaline Cast (Auto) U Epithel Cells (Auto) Urine Bacteria (Auto) Urine RBC >30 H Urine WBC 5-10 H Ur Epithelial Cells 0-5 Urine Bacteria Negative Ur Random Sodium 29 09/25/18 09/25/18 09/25/18 06:32 06:32 12:48 WBC 8.35 RBC 3.16 L Hgb 9.2 L Hct 27.9 L MCV 88.3 MCH 29.1 MCHC 33.0 RDW Std Deviation 53.4 H RDW Coeff of Sandra 16.6 H Plt Count 223 MPV 10.2 Immature Gran % (Auto) 0.4 Neut % (Auto) 76.1 Lymph % (Auto) 15.6 [place] % (Auto) 7.4 Eos % (Auto) 0.5 Baso % (Auto) 0.0 Immature Gran # (Auto) 0.03 H Neut # (Auto) 6.36 Lymph # (Auto) 1.30 [place] # (Auto) 0.62 H Eos # (Auto) 0.04 Baso # (Auto) 0.00 PT INR APTT PTT Ratio Sodium 138 Potassium 3.5 Chloride 101 Carbon Dioxide 26 Anion Gap 10.0 BUN 46 H Creatinine 2.93 H Est Cr Clr Drug Dosing 22.2 Est GFR ( Amer) 21.9 Est GFR (Non-Af Amer) 18.9 BUN/Creatinine Ratio 15.7 Glucose 122 H Calcium 8.7 Total Bilirubin 1.3 H AST 23 ALT 18 Alkaline Phosphatase 89 Total Creatine Kinase CK-MM (CK-3) CK-MB (CK-2) CK-BB (CK-1) Creatine Kinase Interp CK/CKMB % Calc Troponin I NT-Pro-B Natriuret Pep Total Protein 6.1 L Albumin 3.1 L Globulin 3.0 Albumin/Globulin Ratio 1.0 Prostate Specific Ag 1.240 Free PSA % Free PSA Urine Color Urine Appearance Urine pH Ur Specific [place] Urine Protein Urine Glucose (UA) Urine Ketones Urine Blood Urine Nitrite Urine Bilirubin Urine Urobilinogen Ur Leukocyte Esterase Urine WBC (Auto) Urine RBC (Auto) U Hyaline Cast (Auto) U Epithel Cells (Auto) Urine Bacteria (Auto) Urine RBC Urine WBC Ur Epithelial Cells Urine Bacteria Ur Random Sodium 09/25/18 09/25/18 09/25/18 12:48 14:30 14:53 WBC 9.88 RBC 3.22 L Hgb 9.6 L Hct 29.0 L MCV 90.1 MCH 29.8 MCHC 33.1 RDW Std Deviation 54.7 H RDW Coeff of Sandra 16.6 H Plt Count 239 MPV 10.0 Immature Gran % (Auto) 0.3 Neut % (Auto) 72.8 Lymph % (Auto) 18.9 [place] % (Auto) 7.6 Eos % (Auto) 0.4 Baso % (Auto) 0.0 Immature Gran # (Auto) 0.03 H Neut # (Auto) 7.19 H Lymph # (Auto) 1.87 [place] # (Auto) 0.75 H Eos # (Auto) 0.04 Baso # (Auto) 0.00 PT INR APTT PTT Ratio Sodium Potassium Chloride Carbon Dioxide Anion Gap BUN Creatinine Est Cr Clr Drug Dosing Est GFR ( Amer) Est GFR (Non-Af Amer) BUN/Creatinine Ratio Glucose Calcium Total Bilirubin AST ALT Alkaline Phosphatase Total Creatine Kinase CK-MM (CK-3) CK-MB (CK-2) CK-BB (CK-1) Creatine Kinase Interp CK/CKMB % Calc Troponin I NT-Pro-B Natriuret Pep > 59883 H Total Protein Albumin Globulin Albumin/Globulin Ratio Prostate Specific Ag 1.240 Free PSA 0.11 % Free PSA Urine Color Dark Yellow Urine Appearance Cloudy A Urine pH 5.0 Ur Specific [place] 1.029 Urine Protein 1+ H Urine Glucose (UA) Negative Urine Ketones Trace H Urine Blood 3+ H Urine Nitrite Negative Urine Bilirubin Negative Urine Urobilinogen Negative Ur Leukocyte Esterase 2+ H Urine WBC (Auto) 10-30 H Urine RBC (Auto) >30 H U Hyaline Cast (Auto) 1-5 U Epithel Cells (Auto) 20-30 H Urine Bacteria (Auto) Negative Urine RBC Urine WBC Ur Epithelial Cells Urine Bacteria Ur Random Sodium 09/25/18 09/25/18 09/25/18 14:53 14:53 14:53 WBC RBC Hgb Hct MCV MCH MCHC RDW Std Deviation RDW Coeff of Sandra Plt Count MPV Immature Gran % (Auto) Neut % (Auto) Lymph % (Auto) [place] % (Auto) Eos % (Auto) Baso % (Auto) Immature Gran # (Auto) Neut # (Auto) Lymph # (Auto) [place] # (Auto) Eos # (Auto) Baso # (Auto) PT Pending INR Pending APTT Pending PTT Ratio Pending Sodium Pending Potassium Pending Chloride Pending Carbon Dioxide Pending Anion Gap Pending BUN Pending Creatinine Pending Est Cr Clr Drug Dosing Pending Est GFR ( Amer) Pending Est GFR (Non-Af Amer) Pending BUN/Creatinine Ratio Pending Glucose Pending Calcium Pending Total Bilirubin Pending AST Pending ALT Pending Alkaline Phosphatase Pending Total Creatine Kinase CK-MM (CK-3) CK-MB (CK-2) Pending CK-BB (CK-1) Creatine Kinase Interp CK/CKMB % Calc Not Reportable Troponin I Pending Cancelled NT-Pro-B Natriuret Pep Pending Total Protein Pending Albumin Pending Globulin Pending Albumin/Globulin Ratio Pending Prostate Specific Ag Free PSA % Free PSA Urine Color Urine Appearance Urine pH Ur Specific [place] Urine Protein Urine Glucose (UA) Urine Ketones Urine Blood Urine Nitrite Urine Bilirubin Urine Urobilinogen Ur Leukocyte Esterase Urine WBC (Auto) Urine RBC (Auto) U Hyaline Cast (Auto) U Epithel Cells (Auto) Urine Bacteria (Auto) Urine RBC Urine WBC Ur Epithelial Cells Urine Bacteria Ur Random Sodium 09/25/18 09/25/18 09/25/18 14:53 14:53 14:53 WBC RBC Hgb Hct MCV MCH MCHC RDW Std Deviation RDW Coeff of Sandra Plt Count MPV Immature Gran % (Auto) Neut % (Auto) Lymph % (Auto) [place] % (Auto) Eos % (Auto) Baso % (Auto) Immature Gran # (Auto) Neut # (Auto) Lymph # (Auto) [place] # (Auto) Eos # (Auto) Baso # (Auto) PT INR APTT PTT Ratio Sodium Potassium Chloride Carbon Dioxide Anion Gap BUN Creatinine Est Cr Clr Drug Dosing Est GFR ( Amer) Est GFR (Non-Af Amer) BUN/Creatinine Ratio Glucose Calcium Total Bilirubin AST ALT Alkaline Phosphatase Total Creatine Kinase Pending CK-MM (CK-3) Pending CK-MB (CK-2) Cancelled Pending CK-BB (CK-1) Pending Creatine Kinase Interp Pending CK/CKMB % Calc Cancelled Troponin I NT-Pro-B Natriuret Pep Cancelled Total Protein Albumin Globulin Albumin/Globulin Ratio Prostate Specific Ag Free PSA % Free PSA Urine Color Urine Appearance Urine pH Ur Specific [place] Urine Protein Urine Glucose (UA) Urine Ketones Urine Blood Urine Nitrite Urine Bilirubin Urine Urobilinogen Ur Leukocyte Esterase Urine WBC (Auto) Urine RBC (Auto) U Hyaline Cast (Auto) U Epithel Cells (Auto) Urine Bacteria (Auto) Urine RBC Urine WBC Ur Epithelial Cells Urine Bacteria Ur Random Sodium Medications Administered Current Inpatient Medications Acetaminophen (Tylenol) 650 mg PO Q6H PRN PRN Reason: Pain or Fever Stop: 10/24/18 15:37 Last Admin: 09/24/18 15:49 Dose: 650 mg Documented by: Aspirin (Aspirin Chew) 81 mg PO DAILY [facility] Stop: 10/25/18 08:59 Last Admin: 09/25/18 09:12 Dose: 81 mg Documented by: Atorvastatin Calcium (Lipitor) 40 mg PO HS [facility] Stop: 10/22/18 20:59 Last Admin: 09/24/18 21:17 Dose: 40 mg Documented by: Clopidogrel Bisulfate (Plavix) 75 mg PO DAILY [facility] Stop: 10/25/18 08:59 Last Admin: 09/25/18 09:13 Dose: 75 mg Documented by: Cyanocobalamin (Vitamin B-12) 1,000 mcg PO DAILY [facility] Stop: 10/25/18 08:59 Last Admin: 09/25/18 09:12 Dose: 1,000 mcg Documented by: Famotidine (Pepcid) 20 mg PO DAILY [facility]; Protocol Stop: 10/25/18 08:59 Last Admin: 09/25/18 09:12 Dose: 20 mg Documented by: Hydrocortisone (Proctozone Hc 2.5%) 1 appln EXT Q8H PRN PRN Reason: hemorrhoids Stop: 10/24/18 12:26 Ceftriaxone Sodium 2,000 mg/ (Dextrose) 70 mls @ 140 mls/hr IV Q24H [facility] Stop: 10/05/18 13:59 Last Infusion: 09/25/18 15:17 Dose: Infused Documented by: Menthol (Nice) 1 wily BUCCAL NOW PRN PRN Reason: Sore Throat Stop: 10/24/18 16:41 Midodrine (Proamatine) 5 mg PO 1200,1700 [facility] Stop: 10/24/18 11:59 Last Admin: 09/25/18 13:40 Dose: 5 mg Documented by: Midodrine (Proamatine) 10 mg PO QAM [facility] Stop: 10/25/18 08:59 Last Admin: 09/25/18 09:13 Dose: 10 mg Documented by: Nitroglycerin (Nitrostat) 0.4 mg SL UD PRN PRN Reason: Chest Pain Stop: 10/24/18 12:26 Polyethylene Glycol (Miralax Powder Packet) 17 gm PO DAILY PRN PRN Reason: Constipation Stop: 10/24/18 13:55 Ranolazine (Ranexa) 1,000 mg PO BID [facility] Stop: 10/24/18 20:59 Last Admin: 09/25/18 09:12 Dose: 1,000 mg Documented by: Senna/Docusate Sodium (Senokot S) 1 tab PO BID [facility] Stop: 10/24/18 20:59 Last Admin: 09/25/18 09:12 Dose: 1 tab Documented by: Vitamin D (Vitamin D3) 1,000 units PO DAILY [facility] Stop: 10/25/18 08:59 Last Admin: 09/25/18 09:12 Dose: 1,000 units Documented by: Resident Activity Tracking Resident Involvement: Resident Care Provided Care Provided: Adult Hospital Medicine
[2018-09-25 15:33] LABS: Eosinophils # (auto) 0.04 K/uL (0-0.5); Eosinophils % (auto) 0.4 %; Hemoglobin 9.6 g/dL (14.0-18.0); Immature Granulocytes # (auto) 0.03 K/uL (0.00-0.02); Immature Granulocytes % (auto) 0.3 %; Lymphocytes # (auto) 1.87 K/uL (1.2-3.4); Lymphocytes % (auto) 18.9 %; Mean Corpuscular Volume 90.1 fL (80-100); Monocytes # (auto) 0.75 K/uL (0.11-0.59); Monocytes % (auto) 7.6 %; Neutrophils # (auto) 7.19 K/uL (1.4-6.5); Neutrophils % (auto) 72.8 %; Platelet Count 239 K/uL (130-400); RDW Coefficient of Variation 16.6 % (11.5-14.5); RDW Standard Deviation 54.7 fL (36.4-46.3); Red Blood Count 3.22 M/uL (4.7-6.1); White Blood Count 9.88 K/uL (4.8-10.8)
[2018-09-25 15:34] LABS: Mean Corpuscular Hgb Conc 33.1 g/dL (32-36)
--- NOTE | 2018-09-25 15:40 | Progress Note ---
Date of Service September 25, 2018 Assessment & Plan (1) CAD (coronary artery disease): Prior cath in 07/2018 without ability to intervene. - Syncopal episode of 60 s, will transfer to ICU. Discussed with and . Possibly needs temporary pacemaker. - Cardiology following - Troponin elevated to 0.202-->0.180. Rechecking Troponin , CBC, CMP, BNP, PT/PTT/INR, CK, CKMB - Continue trending down troponin.Will check CPK. Coronary Disease-Associated Artery/Lesion type: [place] artery [place] vs. transplanted heart: [place] heart Associated angina: with unstable angina Qualified Code(s): I25.110 - Atherosclerotic heart disease of [place] coronary artery with unstable angina pectoris (2) Pneumonia: Concern for aspiration either as inciting event (less likely) or during his code. - Was on ceftriaxone per ICU team - Stopped by 09/24. - Repeated CXR (09/24) for mild hypoxemia (87% on room air) showed no changes in mild pulmonary edema, and persistant small bilateral pleural effusions with bilateral opacities. - Pt denies shortness of breath today. WBC improved since yesterday from 11. 94-->8.35. No left shift, Lungs clear on auscultation, even though breath sound is distant at the base bilaterally. (3) JANIS (acute kidney injury): Baseline Cr ~1.1-1.2. Cr on admission was 1.9. Likely ATN from hypoperfusion during code. - Support BP - Monitor Cr - Cr was actually up to 2.5-->2.8-->2.93; BUN 38-->46. - It could be ATN due to low cardiac perfusion during the cardiac arrest. - Since pt has Mittal catheter it was noted mild hematuria. Plan to irrigate the bladder as per recommendations of Dr. Tobar urologist.Checking PSA for BPH. - Discussed pt arrhythmia with need for heparin drip in situation of ongoing mild hematuria with both urology and cardiology . It is clear recommendation from cardiology and urology that pt 's risk of bleeding is much higher then getting stroke in this situation and anticoagulation of this degree is contraindicated. We will also need to stop prophylactic Heparin since pt has hematuria and continue only clopidogrel and aspirin 81. -Since pt is severely dehydrated per BUN will give one time IV NS 500 ml bolus and continue trending creatinine and GFR.Avoid nephrotoxic agents. (4) Cardiac arrest: Likely 20-30 minutes of CPR prior to ROSC in the ED. At least 15 minutes of CPR prior to EMT arrival at home. - Elevated troponin now, 0.202-->0.180 trending down. Most likely due to the CPR that was given during the cardiac arrest. - Pt has now paroxysmal afibs which he did not have before or did not know of. Due to ongoing hematuria , starting heparin drip for afibs is contraindicated. - Continue only clopidogrel and aspirin 81. - Started Metoprolol tart 12.5 mg BID to control rate better. - Due to low rate <100 bpm pt is not candidate for diltiazem or amiodarone drip. - Appreciate cardiology recommendations, they will continue to follow. - Cardiology will discuss ICD given his unexplained code (5) Anoxic encephalopathy: ROSC after 20-30 minutes of CPR. - See above (6) HTN (hypertension), benign: BP normal after being on pressors during his cooling. - Holding most oral meds (7) DVT prophylaxis: Heparin for DVT stopped due to hematuria , and started SCD-s at rest and ambulation TID with assistance. Subjective During the pt pt had a syncopal episode and his HR on the monitor was in low 40. Continues with afibs with RVR on the monitor. Code Blue was called , but stopped since pt pt regained consciousness quickly. Loss of consciousness was less the 60 s. Pt does not remember what took place.His BP was 99/72 and he was give bolus of 500 cc NS. HR retuned back to normal-87. Pt denied any GREENE, chest pain, SOB abdominal pain , frequency and urgency. He is complaining of chest discomfort today, it is right-sided, it is related to movement and and is easily reproduced by palpation over the area. He does not have other types of chest discomfort. He evidently has had this before but he does not recall it. He has no shortness of breath. Review of Systems Review of Systems: All systems reviewed & are unremarkable except as noted in HPI & below Constitutional: as per Subjective / HPI Eyes: PERRLA Respiratory: CTAB Cardiovascular: + syncope Neurologic: + syncope Psychiatric: as per Subjective / HPI Physical Exam Constitutional: WD/WN, vitals as above well developed and well nourished Eyes: PERRL, conjunctivae normal, anicteric sclerae ENMT: external ear and nose normal, oropharynx normal Respiratory: normal respiratory effort, lungs clear to auscultation Cardiovascular: Rate/Rhythm: + irregularly irregular Chest (Breasts): normal inspection/palpation of breasts Gastrointestinal (Abdomen): normal bowel sounds, soft, nontender, no hepatosplenomegaly Musculoskeletal: no cyanosis or clubbing, extremities motor strength 5/5 Skin: no rashes, warm and dry Results & Data Vital Signs (Past 12 Hours) Vital Signs Temp Pulse Resp BP BP BP Pulse Ox 09/25/18 15:01 36.3 C L 81 20 99/72 L 99/72 L 100 09/25/18 07:31 36.7 C 107 H 22 115/81 97 09/25/18 03:53 36.8 C 103 H 19 99/73 L 93 PG Care Time/CCT Total # of Minutes Spent Total Time Spent with Patient: Total time spent is greater than 50% in coordination of care (as documented) at patient's floor/unit and/or counseling patient:
[2018-09-25 15:41] LABS: INR 1.2 (0.9-1.1); Partial Thromboplastin Ratio 1.1; Partial Thromboplastin Time 28.6 Seconds (21.0-31.0); Prothrombin Time 12.3 Seconds (9.0-12.0)
[2018-09-25 15:47] LABS: Alanine Aminotransferase 21 U/L (12-78); Albumin Level 3.2 gm/dl (3.4-5.0); Aspartate Aminotransferase 25 U/L (15-37); BUN Creatinine Ratio 14.4 (10-20); Blood Urea Nitrogen 47 mg/dl (7-18); Calcium 8.9 mg/dl (8.5-10.1); Carbon Dioxide 26 mmol/L (21-32); Chloride 102 mmol/L (98-107); Creatinine Clr Calc Pharmacy 19.8 ml/min; Est GFR (African American) 19.1; Est GFR (Non-African American) 16.5; Glucose 129 mg/dl (70-99); Potassium 3.6 mmol/L (3.5-5.1); Sodium 137 mmol/L (136-145)
[2018-09-25] MEDS ORDERED: NORMOSOL-R 1,000 ML IV SCH (16:30)
[2018-09-25 16:38] LABS: Alkaline Phosphatase 96 U/L (45-117); Bilirubin,Total 1.4 mg/dl (0.2-1); Creatine Kinase MB 1.4 ng/ml (0.5-3.6); Globulin 3.4 gm/dl (2.5-4.0); NT Pro B Type Natriuretic Pept > 35000 pg/ml (0-1800); Total Protein 6.6 gm/dl (6.4-8.2); Troponin I 0.158 ng/ml (0-0.045)
[2018-09-25 16:51] LABS: Hemoglobin 9.7 g/dL (14.0-18.0)
[2018-09-25] MEDS: POLYETHYLENE (MIRALAX) 17 GM PACK PO PRN (19:29)
[2018-09-25] MEDS: ATORVASTATIN 40 MG TAB PO SCH (20:07)
[2018-09-25] MEDS ORDERED: NITROFURANTOIN MONOHYDRATE 100 MG CAP PO SCH (21:00)
[2018-09-25] MEDS ORDERED: COUGH DROP (SUGAR FREE) LOZ 24 LOZ/1 BOX BUCCAL PRN (22:23)
[2018-09-26 04:27] LABS: Basophils # (auto) 0.01 K/uL (0-0.2); Basophils % (auto) 0.1 %; Eosinophils # (auto) 0.05 K/uL (0-0.5); Eosinophils % (auto) 0.6 %; Hemoglobin 9.1 g/dL (14.0-18.0); Immature Granulocytes # (auto) 0.03 K/uL (0.00-0.02); Immature Granulocytes % (auto) 0.4 %; Lymphocytes # (auto) 1.28 K/uL (1.2-3.4); Mean Corpuscular Hgb Conc 33.7 g/dL (32-36); Mean Corpuscular Volume 88.2 fL (80-100); Mean Platelet Volume 10.2 fL (7.4-10.4); Monocytes # (auto) 0.83 K/uL (0.11-0.59); Monocytes % (auto) 9.7 %; Neutrophils # (auto) 6.32 K/uL (1.4-6.5); Neutrophils % (auto) 74.2 %; Nucleated RBC # (auto) 0.07 K/uL (0-0); Nucleated RBC % (auto) 0.9 %; Platelet Count 214 K/uL (130-400); RDW Coefficient of Variation 16.6 % (11.5-14.5); RDW Standard Deviation 53.2 fL (36.4-46.3); Red Blood Count 3.06 M/uL (4.7-6.1); White Blood Count 8.52 K/uL (4.8-10.8)
[2018-09-26 04:41] LABS: INR 1.3 (0.9-1.1); Partial Thromboplastin Ratio 1.1; Partial Thromboplastin Time 30.4 Seconds (21.0-31.0); Prothrombin Time 13.2 Seconds (9.0-12.0)
[2018-09-26 04:42] LABS: Albumin Level 3.1 gm/dl (3.4-5.0); BUN Creatinine Ratio 14.7 (10-20); Calcium 8.7 mg/dl (8.5-10.1); Creatinine Clr Calc Pharmacy 18.7 ml/min; Est GFR (African American) 17.8; Est GFR (Non-African American) 15.4; Potassium 3.9 mmol/L (3.5-5.1)
[2018-09-26 04:45] LABS: Bilirubin,Total 1.7 mg/dl (0.2-1); Total Protein 6.1 gm/dl (6.4-8.2)
[2018-09-26 05:42] LABS: Magnesium 2.7 mg/dl (1.8-2.4); Phosphorus 4.7 mg/dl (2.5-4.9)
[2018-09-26] MEDS: HEPARIN SOD 5,000 UNIT/0.5 ML VIAL SQ SCH ×3 (06:05→20:17)
--- NOTE | 2018-09-26 07:57 | Critical Care Progress Note ---
Date of Service September 26, 2018 Assessment & Plan (1) Admitted to intensive care unit: Reason Critically Ill: 82 y/o who initially presented with ROSC after cardiac arrest and completed therapeutic hypothermia protocol represents after syncopal episode/near arrest. PLAN: NEURO -Therapeutic hypothermia completed. Rewarming finished. -Mild anoxic encephalopathy. Pt is more alert and is able to follow simple commands. Expect some cognitive difficulty from cerebral anoxia moving forward -No evidence of seizure activity on EEG -Neuro: Clinical status and prognosis for recovery improved. Repeat CT head - No acute intracranial abnormality PULM -Sating well on RA -Aspiration pneumonitis- s/p bronch. NGTD. Completed course of Rocephin in ICU, but restarted on floors (CXR 09/24- Persistent small bilateral pleural effusions with bibasilar opacities), will cont -KAY CARDIO -Cause of initial cardiac arrest unclear. History of severe CAD with multiple admissions this year with troponin elevations. Cardiac cath in July without ability to intervene. Trop trending down. ECHO reviewed. -Repeat near arrest- Repeat trop still downtrending. Cont low dose heparin (hematuria is acknowledged) -repeat EKG today NSR with occasional PVC's -HTN- off pressor support now. Holding home meds as still somewhat hypotensive -CAD- Cont atorvastatin, ASA, Plavix -Paroxysmal A fib- Rate is adequately controlled -Ischemic cardiomyopathy/ EF 35% --> Cards to discuss ICD . Will observe clinical course, at least for today. Fluids/Renal: -CKD stage III- Elevated creatinine. Likely ATN from hypoperfusion. Cont trend -Still Poor UOP, cont monitor. Encouraged PO intake, will consider restart Normsol -noted to have mild hematuria in [place] -urology with plans to irrigate bladder. PSA normal ID: -Concern for aspiration, dc'd antibiotics empirically after 48 hrs but restarted on floors as above for concern of b/l opacities seen on CXR 09/24 -Cont trend fever curve. Afebrile at present GI/Nutrition: -CT Abd: Gallbladder wall thickening -Normal LFT's. Will cont trend, may require RUQ U/S in near future -Advanced to AHA diet HEME -Anemia of chronic kidney disease -Stable H/H. Noted mild hematuria. Cont trend q8h -type and screen ENDO -A1C 5.8 -ICU hyperglycemia protocol. Elevated BSG likely 2/2 stress LINES: R IJ Central venous access, PIV x3. DVT prophylaxis: Low Dose Heparin Full Code DISPO: Stable for downgrade out of ICU Supervising Physician Co-Signing Physician Notes Dr. Bloom was resident physician during care of patient. I separately evaluated patient for weber portions of the history and the exam. I was present during the critical portion of medical decision making, and I discussed the case with the resident. I generally agree with the findings and plan. Patient was discussed with cardiology. Deferring AICD vs life vest to Dr. Christine. Closely watching Cr. This may complicate overall prognosis moving forward. I have personally spent 35 minutes of critical care time in the direct manageme nt of this patient. This is a life/limb threatening event. This includes time spent evaluating patient, direct bedside care, chart review, placing orders, interpretation of diagnostic studies, discussion with consultants, patient, and/or family members regarding treatment decisions, as well as other required patient management activities. This time is exclusive of all separately billable procedures, and teaching time and separate from and in addition to any other critical care service time. Subjective 82 y/o M found in bed this AM resting comfortably in NAD. Reports that had difficulty sleeping overnight 2/2 cough. This AM, notes ongoing chest pressure that is reproducible on palpation. EKG showed NSR with occasional PVC's. Also states having some SOB, but otherwise sating well on RA. Tolerating PO intake. No issues voiding. No other acute concerns or complaints. Review of Systems Review of Systems: All systems reviewed & are unremarkable except as noted in HPI & below Physical Exam Constitutional: WD/WN, vitals as above ENMT: external ear and nose normal, oropharynx normal Respiratory: normal respiratory effort, lungs clear to auscultation Cardiovascular: RRR, no murmur, no edema Gastrointestinal (Abdomen): normal bowel sounds, soft, nontender, no hepato splenomegaly Skin: no rashes, warm and dry Psychiatric: A+Ox3, euthymic affect Results & Data Vital Signs (Past 12 Hours) Vital Signs Temp Pulse Resp BP Pulse Ox 09/26/18 06:00 80 22 118/66 97 09/26/18 05:00 72 18 121/58 L 93 09/26/18 04:00 36.8 C 77 17 106/58 L 93 09/26/18 03:00 72 20 109/67 96 09/26/18 02:01 77 18 117/50 L 95 09/26/18 01:00 77 25 H 89/61 L 93 09/26/18 00:00 82 20 97/63 L 95 09/25/18 23:00 76 19 100/64 91 09/25/18 22:00 77 19 116/68 93 09/25/18 21:00 74 22 106/62 95 09/25/18 20:00 36.8 C 70 18 100/53 L 97 Laboratory Results Laboratory Results - last 24 hr 09/25/18 09/25/18 09/25/18 12:48 12:48 14:30 WBC RBC Hgb Hct MCV MCH MCHC RDW Std Deviation RDW Coeff of Sandra Plt Count MPV Immature Gran % (Auto) Neut % (Auto) Lymph % (Auto) [place] % (Auto) Eos % (Auto) Baso % (Auto) Immature Gran # (Auto) Neut # (Auto) Lymph # (Auto) [place] # (Auto) Eos # (Auto) Baso # (Auto) Absolute Nucleated RBC Nucleated RBC % (auto) PT INR APTT PTT Ratio Sodium Potassium Chloride Carbon Dioxide Anion Gap BUN Creatinine Est Cr Clr Drug Dosing Est GFR ( Amer) Est GFR (Non-Af Amer) BUN/Creatinine Ratio Glucose Calcium Phosphorus Magnesium Total Bilirubin AST ALT Alkaline Phosphatase Total Creatine Kinase CK-MM (CK-3) CK-MB (CK-2) CK-BB (CK-1) Creatine Kinase Interp CK/CKMB % Calc Troponin I NT-Pro-B Natriuret Pep > 15555 H Total Protein Albumin Globulin Albumin/Globulin Ratio Prostate Specific Ag 1.240 1.240 Free PSA 0.11 % Free PSA Urine Color Dark Yellow Urine Appearance Cloudy A Urine pH 5.0 Ur Specific Pa[place] 1.029 Urine Protein 1+ H Urine Glucose (UA) Negative Urine Ketones Trace H Urine Blood 3+ H Urine Nitrite Negative Urine Bilirubin Negative Urine Urobilinogen Negative Ur Leukocyte Esterase 2+ H Urine WBC (Auto) 10-30 H Urine RBC (Auto) >30 H U Hyaline Cast (Auto) 1-5 U Epithel Cells (Auto) 20-30 H Urine Bacteria (Auto) Negative Blood Type Antibody Screen 09/25/18 09/25/18 09/25/18 14:53 14:53 14:53 WBC 9.88 RBC 3.22 L Hgb 9.6 L Hct 29.0 L MCV 90.1 MCH 29.8 MCHC 33.1 RDW Std Deviation 54.7 H RDW Coeff of Sandra 16.6 H Plt Count 239 MPV 10.0 Immature Gran % (Auto) 0.3 Neut % (Auto) 72.8 Lymph % (Auto) 18.9 [place] % (Auto) 7.6 Eos % (Auto) 0.4 Baso % (Auto) 0.0 Immature Gran # (Auto) 0.03 H Neut # (Auto) 7.19 H Lymph # (Auto) 1.87 [place] # (Auto) 0.75 H Eos # (Auto) 0.04 Baso # (Auto) 0.00 Absolute Nucleated RBC Nucleated RBC % (auto) PT 12.3 H INR 1.2 H APTT 28.6 PTT Ratio 1.1 Sodium 137 Potassium 3.6 Chloride 102 Carbon Dioxide 26 Anion Gap 9.0 BUN 47 H Creatinine 3.28 H D Est Cr Clr Drug Dosing 19.8 Est GFR ( Amer) 19.1 Est GFR (Non-Af Amer) 16.5 BUN/Creatinine Ratio 14.4 Glucose 129 H Calcium 8.9 Phosphorus Magnesium Total Bilirubin 1.4 H AST 25 ALT 21 Alkaline Phosphatase 96 Total Creatine Kinase CK-MM (CK-3) CK-MB (CK-2) 1.4 CK-BB (CK-1) Creatine Kinase Interp CK/CKMB % Calc Not Reportable Troponin I 0.158 H* NT-Pro-B Natriuret Pep > 15259 H Total Protein 6.6 Albumin 3.2 L Globulin 3.4 Albumin/Globulin Ratio 1.0 Prostate Specific Ag Free PSA % Free PSA Urine Color Urine Appearance Urine pH Ur Specific [place] Urine Protein Urine Glucose (UA) Urine Ketones Urine Blood Urine Nitrite Urine Bilirubin Urine Urobilinogen Ur Leukocyte Esterase Urine WBC (Auto) Urine RBC (Auto) U Hyaline Cast (Auto) U Epithel Cells (Auto) Urine Bacteria (Auto) Blood Type Antibody Screen 09/25/18 09/25/18 09/25/18 14:53 14:53 14:53 WBC RBC Hgb Hct MCV MCH MCHC RDW Std Deviation RDW Coeff of Sandra Plt Count MPV Immature Gran % (Auto) Neut % (Auto) Lymph % (Auto) [place] % (Auto) Eos % (Auto) Baso % (Auto) Immature Gran # (Auto) Neut # (Auto) Lymph # (Auto) [place] # (Auto) Eos # (Auto) Baso # (Auto) Absolute Nucleated RBC Nucleated RBC % (auto) PT INR APTT PTT Ratio Sodium Potassium Chloride Carbon Dioxide Anion Gap BUN Creatinine Est Cr Clr Drug Dosing Est GFR ( Amer) Est GFR (Non-Af Amer) BUN/Creatinine Ratio Glucose Calcium Phosphorus Magnesium Total Bilirubin AST ALT Alkaline Phosphatase Total Creatine Kinase Pending CK-MM (CK-3) Pending CK-MB (CK-2) Cancelled Pending CK-BB (CK-1) Pending Creatine Kinase Interp Pending CK/CKMB % Calc Cancelled Troponin I Cancelled NT-Pro-B Natriuret Pep Total Protein Albumin Globulin Albumin/Globulin Ratio Prostate Specific Ag Free PSA % Free PSA Urine Color Urine Appearance Urine pH Ur Specific [place] Urine Protein Urine Glucose (UA) Urine Ketones Urine Blood Urine Nitrite Urine Bilirubin Urine Urobilinogen Ur Leukocyte Esterase Urine WBC (Auto) Urine RBC (Auto) U Hyaline Cast (Auto) U Epithel Cells (Auto) Urine Bacteria (Auto) Blood Type Antibody Screen 09/25/18 09/25/18 09/25/18 14:53 16:35 16:35 WBC RBC Hgb 9.7 L Hct 29.0 L MCV MCH MCHC RDW Std Deviation RDW Coeff of Sandra Plt Count MPV Immature Gran % (Auto) Neut % (Auto) Lymph % (Auto) [place] % (Auto) Eos % (Auto) Baso % (Auto) Immature Gran # (Auto) Neut # (Auto) Lymph # (Auto) [place] # (Auto) Eos # (Auto) Baso # (Auto) Absolute Nucleated RBC Nucleated RBC % (auto) PT INR APTT PTT Ratio Sodium Potassium Chloride Carbon Dioxide Anion Gap BUN Creatinine Est Cr Clr Drug Dosing Est GFR ( Amer) Est GFR (Non-Af Amer) BUN/Creatinine Ratio Glucose Calcium Phosphorus Magnesium Total Bilirubin AST ALT Alkaline Phosphatase Total Creatine Kinase CK-MM (CK-3) CK-MB (CK-2) CK-BB (CK-1) Creatine Kinase Interp CK/CKMB % Calc Troponin I NT-Pro-B Natriuret Pep Cancelled Total Protein Albumin Globulin Albumin/Globulin Ratio Prostate Specific Ag Free PSA % Free PSA Urine Color Urine Appearance Urine pH Ur Specific [place] Urine Protein Urine Glucose (UA) Urine Ketones Urine Blood Urine Nitrite Urine Bilirubin Urine Urobilinogen Ur Leukocyte Esterase Urine WBC (Auto) Urine RBC (Auto) U Hyaline Cast (Auto) U Epithel Cells (Auto) Urine Bacteria (Auto) Blood Type AB Negative Antibody Screen NEGATIVE 09/26/18 09/26/18 09/26/18 04:10 04:10 04:10 WBC 8.52 RBC 3.06 L Hgb 9.1 L Hct 27.0 L MCV 88.2 MCH 29.7 MCHC 33.7 RDW Std Deviation 53.2 H RDW Coeff of Sandra 16.6 H Plt Count 214 MPV 10.2 Immature Gran % (Auto) 0.4 Neut % (Auto) 74.2 Lymph % (Auto) 15.0 [place] % (Auto) 9.7 Eos % (Auto) 0.6 Baso % (Auto) 0.1 Immature Gran # (Auto) 0.03 H Neut # (Auto) 6.32 Lymph # (Auto) 1.28 [place] # (Auto) 0.83 H Eos # (Auto) 0.05 Baso # (Auto) 0.01 Absolute Nucleated RBC 0.07 H Nucleated RBC % (auto) 0.9 PT 13.2 H INR 1.3 H APTT 30.4 PTT Ratio 1.1 Sodium 136 Potassium 3.9 Chloride 100 Carbon Dioxide 26 Anion Gap 10.0 BUN 51 H Creatinine 3.47 H Est Cr Clr Drug Dosing 18.7 Est GFR ( Amer) 17.8 Est GFR (Non-Af Amer) 15.4 BUN/Creatinine Ratio 14.7 Glucose 127 H Calcium 8.7 Phosphorus 4.7 Magnesium 2.7 H Total Bilirubin 1.7 H AST 54 H ALT 39 Alkaline Phosphatase 108 Total Creatine Kinase CK-MM (CK-3) CK-MB (CK-2) CK-BB (CK-1) Creatine Kinase Interp CK/CKMB % Calc Troponin I NT-Pro-B Natriuret Pep Total Protein 6.1 L Albumin 3.1 L Globulin 3.0 Albumin/Globulin Ratio 1.0 Prostate Specific Ag Free PSA % Free PSA Urine Color Urine Appearance Urine pH Ur Specific [place] Urine Protein Urine Glucose (UA) Urine Ketones Urine Blood Urine Nitrite Urine Bilirubin Urine Urobilinogen Ur Leukocyte Esterase Urine WBC (Auto) Urine RBC (Auto) U Hyaline Cast (Auto) U Epithel Cells (Auto) Urine Bacteria (Auto) Blood Type Antibody Screen Medications Administered Current Inpatient Medications Acetaminophen (Tylenol) 650 mg PO Q6H PRN PRN Reason: Pain or Fever Stop: 10/24/18 15:37 Last Admin: 09/24/18 15:49 Dose: 650 mg Documented by: Aspirin (Aspirin Chew) 81 mg PO DAILY [facility] Stop: 10/25/18 08:59 Last Admin: 09/26/18 07:58 Dose: 81 mg Documented by: Atorvastatin Calcium (Lipitor) 40 mg PO HS [facility] Stop: 10/22/18 20:59 Last Admin: 09/25/18 20:07 Dose: 40 mg Documented by: Clopidogrel Bisulfate (Plavix) 75 mg PO DAILY [facility] Stop: 10/25/18 08:59 Last Admin: 09/26/18 07:58 Dose: 75 mg Documented by: Cyanocobalamin (Vitamin B-12) 1,000 mcg PO DAILY [facility] Stop: 10/25/18 08:59 Last Admin: 09/26/18 07:59 Dose: 1,000 mcg Documented by: Famotidine (Pepcid) 20 mg PO DAILY [facility]; Protocol Stop: 10/25/18 08:59 Last Admin: 09/26/18 07:59 Dose: 20 mg Documented by: Heparin Sodium (Porcine) (Heparin Sodium (Porcine)) 5,000 units SQ Q8 DAYSI Stop: 10/25/18 21:59 Last Admin: 09/26/18 06:05 Dose: 5,000 units Documented by: Hydrocortisone (Proctozone Hc 2.5%) 1 appln EXT Q8H PRN PRN Reason: hemorrhoids Stop: 10/24/18 12:26 Ceftriaxone Sodium 2,000 mg/ (Dextrose) 70 mls @ 140 mls/hr IV Q24H [facility] Stop: 10/05/18 13:59 Last Infusion: 09/25/18 15:17 Dose: Infused Documented by: Parenteral Electrolytes (Normosol-R) 1,000 mls @ 100 mls/hr IV .Q10H [facility] Stop: 10/25/18 16:29 Last Admin: 09/25/18 16:54 Dose: Not Given Documented by: Menthol (Nice) 1 wily BUCCAL NOW PRN PRN Reason: Sore Throat Stop: 10/24/18 16:41 Menthol (Nice) 1 wily BUCCAL PRN PRN PRN Reason: Cough Stop: 10/25/18 22:22 Midodrine (Proamatine) 5 mg PO 1200,1700 [facility] Stop: 10/24/18 11:59 Last Admin: 09/25/18 17:16 Dose: 5 mg Documented by: Midodrine (Proamatine) 10 mg PO QAM DAYSI Stop: 10/25/18 08:59 Last Admin: 09/26/18 07:59 Dose: 10 mg Documented by: Nitroglycerin (Nitrostat) 0.4 mg SL UD PRN PRN Reason: Chest Pain Stop: 10/24/18 12:26 Polyethylene Glycol (Miralax Powder Packet) 17 gm PO DAILY PRN PRN Reason: Constipation Stop: 10/24/18 13:55 Last Admin: 09/25/18 19:29 Dose: 17 gm Documented by: Ranolazine (Ranexa) 1,000 mg PO BID [facility] Stop: 10/24/18 20:59 Last Admin: 09/26/18 07:59 Dose: 1,000 mg Documented by: Senna/Docusate Sodium (Senokot S) 1 tab PO BID DAYSI Stop: 10/24/18 20:59 Last Admin: 09/26/18 07:58 Dose: 1 tab Documented by: Vitamin D (Vitamin D3) 1,000 units PO DAILY [facility] Stop: 10/25/18 08:59 Last Admin: 09/26/18 07:58 Dose: 1,000 units Documented by: PG Care Time/CCT Critical Care Time: Yes (35) Total Critical Care Time: 35 Resident Activity Tracking Resident Involvement: Resident Care Provided Care Provided: Adult Hospital Medicine
[2018-09-26] MEDS: DOCUSATE SODIUM/SENNA 50/8.6MG TAB PO SCH ×2 (07:58→20:17)
[2018-09-26] MEDS: ASPIRIN 81 MG CHEW PO SCH (07:58)
[2018-09-26] MEDS: CHOLECALCIFEROL 1,000 UNITS TAB PO SCH (07:58)
[2018-09-26] MEDS: CLOPIDOGREL BISULFATE 75 MG TAB PO SCH (07:58)
[2018-09-26] MEDS: CYANOCOBALAMIN 500 MCG TABLET (VITAMIN B-12) PO SCH (07:59)
[2018-09-26] MEDS: MIDODRINE HCL 2.5 MG TAB PO SCH ×3 (07:59→17:32)
[2018-09-26] MEDS: FAMOTIDINE 20 MG TAB PO SCH (07:59)
[2018-09-26] MEDS: RANOLAZINE 500 MG ER TAB PO SCH ×2 (07:59→20:14)
[2018-09-26 08:49] LABS: Hematocrit (blood only) 27.1 % (42-52); Hemoglobin 9.1 g/dL (14.0-18.0)
--- NOTE | 2018-09-26 08:51 | Cardiology Progress Note ---
Date of Service September 26, 2018 Assessment & Plan (1) Cardiac arrest: Hemodynamically he is doing well today, he is somewhat confused and I believe he has some element of anoxic encephalopathy. He has had no significant arrhythmias on monitoring. He had a period of slowing yesterday afternoon, that seems minor and I believe is secondary, perhaps hypoxia. (2) Ischemic cardiomyopathy: He has an ischemic cardiomyopathy, ejection fraction in the 35% range although some of that could be stunning. We will need to consider an ICD although I am not sure we know what the rhythm was at the time of his event. Per the emergency room notes he was asystolic upon the arrival of EMS, whether this was ventricular fibrillation which terminated or whether it is primary asystole due to metabolic abnormality is not clear. Given his overall prognosis with his inoperable coronary artery disease and mental status am not sure that is appropriate therapy however. (3) Atrial fibrillation: Although a little bit hard to tell from telemetry it seems that he has been atrial fibrillation from September 24, possibly a little bit earlier, until 1:00 on the morning of September 26, 2018. Rate was adequately controlled with no change in heart rate when he converted back to sinus rhythm now that he is back in sinus rhythm I would probably continue to hold off. We need to consider anticoagulation if it continues, although there is some risk with his CPR and his antiplatelet agents. Now that he is back in sinus rhythm I would continue to hold off, although that may be a future consideration. Subjective Events of yesterday noted. He had some slowing on the monitor, I reviewed telemetry and there is a very brief episode of heart rate in the 40s, lasting less than a minute. He was transferred to the unit and apparently has been stable since. Physical Exam Physical Exam: Constitutional: Alert, cooperative and in no distress. Pulmonary: Crackles bilaterally. Cardiac: Irregular rhythm with frequent premature beats, no murmur, gallop or rub. Abdomen: Soft, nontender with normal bowel sounds. Extremities: No edema. Skin: No rash, ecchymoses or petechiae. Results & Data Vital Signs (Past 12 Hours) Vital Signs Temp Pulse Resp BP Pulse Ox 09/26/18 06:00 80 22 118/66 97 09/26/18 05:00 72 18 121/58 L 93 09/26/18 04:00 36.8 C 77 17 106/58 L 93 09/26/18 03:00 72 20 109/67 96 09/26/18 02:01 77 18 117/50 L 95 09/26/18 01:00 77 25 H 89/61 L 93 09/26/18 00:00 82 20 97/63 L 95 09/25/18 23:00 76 19 100/64 91 09/25/18 22:00 77 19 116/68 93 09/25/18 21:00 74 22 106/62 95 Diagnostic Findings An electrocardiogram at 10 AM on September 25, 2018 shows atrial fibrillation with a heart rate of 92 bpm, frequent premature ventricular beats. ST-T abnormalities, no acute changes. Electrocardiogram this morning shows sinus rhythm at 79 bpm with PVCs and no acute changes. Telemetry: Initially atrial fibrillation, rate generally well controlled, one episode of bradycardia at 1443 yesterday lasting about 3 minutes, during that time there was one episode of heart rate in the 40s during atrial fibrillation which lasted less than a minute. This morning he is in sinus rhythm, conversion appears to have occurred around 0100 this morning, there was little difference in rate. There was a slight pause at that time consistent with termination.
[2018-09-26] MEDS: cefTRIAXone SODIUM 2,000 MG in DEXTROSE 5% 50 ML IV SCH (15:04)
--- NOTE | 2018-09-26 18:10 | Hospitalist Progress Note ---
Date of Service September 26, 2018 Assessment & Plan (1) CAD (coronary artery disease): Prior cath in 07/2018 without ability to intervene. - Syncopal episode of 60 s, transferred to ICU. - Cardiology following,appreciate recs. Pt now in NSR.Hold off anticoagulation for now. It could be considered in the future since pt had paroxismal afibs. - There is no clear explanation for the syncope and cardiac arrest. (2) Pneumonia: Concern for aspiration either as initiative event (less likely) or during his code. - Was on ceftriaxone per ICU team - Stopped by 09/24. (3) JANIS (acute kidney injury): Baseline Cr ~1.1-1.2. Cr on admission was 1.9. Likely ATN from hypoperfusion during code. - Support BP - Monitor Cr - Cr was actually up to 2.5-->2.8-->2.93; BUN 38-->46. - as per ICU team (4) Cardiac arrest: Likely 20-30 minutes of CPR prior to ROSC in the ED. At least 15 minutes of CPR prior to EMT arrival at home. - Elevated troponin now, 0.202-->0.180 trending down. Most likely due to the CPR that was given during the cardiac arrest. - Pt has now paroxysmal afibs which he did not have before or did not know of. Due to ongoing hematuria , starting heparin drip for afibs is contraindicated. - Continue only clopidogrel and aspirin 81. - Started Metoprolol tart 12.5 mg BID to control rate better. - Due to low rate <100 bpm pt is not candidate for diltiazem or amiodarone drip. - Appreciate cardiology recommendations, they will continue to follow. - Cardiology will discuss ICD given his unexplained code (5) Anoxic encephalopathy: - See above (6) HTN (hypertension), benign: BP normal after being on pressors during his cooling. - Holding most oral meds (7) DVT prophylaxis: Heparin for DVT stopped due to hematuria , and started SCD-s at rest. Subjective Pt seen and examined in the ICU. He continues to be confused and disoriented. He responds to questions even though his speech is most of the time incoherent. His is next to his bedside. All questions were answered. Pt is afebrile. He is resting in the bed.he denies any fever, chills, chest pain, SOB, abdominal pain, frequency and urgency. His urine continues to be cloudy with large blood in there. Pt is now in sinus rhythm .Anticoagulation was not started yesterday for afibs since he has hematuria. Review of Systems Review of Systems: All systems reviewed & are unremarkable except as noted in HPI & below Physical Exam Constitutional: WD/WN, vitals as above well developed and well nourished Eyes: PERRL, conjunctivae normal, anicteric sclerae ENMT: external ear and nose normal, oropharynx normal Ears: + hearing impairment Neck: trachea midline, no thyromegaly Respiratory: normal respiratory effort, lungs clear to auscultation Cardiovascular: RRR, no murmur, no edema Rate/Rhythm: + irregularly irregular Chest (Breasts): normal inspection/palpation of breasts Gastrointestinal (Abdomen): normal bowel sounds, soft, nontender, no hepatosplenomegaly Musculoskeletal: no cyanosis or clubbing, extremities motor strength 5/5 Skin: no rashes, warm and dry Neurologic: awake and + confused Speech / Cognition: + abnormal speech and + abnormal cognition able to follow simple commands Psychiatric: Affect: + blunted affect Thought Process: + incoherent thought process Thought Content: + cognitive distortions Lymphatic: no cervical or axillary lymphadenopathy Results & Data Vital Signs (Past 12 Hours) Vital Signs Temp Pulse Resp BP Pulse Ox 09/26/18 15:00 75 09/26/18 12:00 36.7 C 72 21 94/61 L 95 09/26/18 11:00 74 17 105/57 L 92 09/26/18 10:00 70 18 113/64 96 09/26/18 09:00 71 18 103/61 95 09/26/18 08:00 36.5 C 77 18 103/51 L 86 L 09/26/18 07:00 78 22 108/68 90 PG Care Time/CCT Total # of Minutes Spent Total Time Spent with Patient: Total time spent is greater than 50% in coordination of care (as documented) at patient's floor/unit and/or counseling patient: (1) CAD (coronary artery disease) Coronary Disease-Associated Artery/Lesion type: [place] artery [place] vs. transplanted heart: [place] heart Associated angina: with unstable angina Qualified Code(s): I25.110 - Atherosclerotic heart disease of [place] coronary artery with unstable angina pectoris
[2018-09-26] MEDS: POLYETHYLENE (MIRALAX) 17 GM PACK PO PRN (19:25)
[2018-09-26] MEDS ORDERED: BISACODYL 10 MG SUPP PR ONE (19:28)
[2018-09-26] MEDS ORDERED: BISACODYL 10 MG SUPP PR STA (19:31)
[2018-09-26] MEDS: ATORVASTATIN 40 MG TAB PO SCH (20:14)
[2018-09-27 05:17] LABS: Basophils # (auto) 0.01 K/uL (0-0.2); Basophils % (auto) 0.1 %; Eosinophils # (auto) 0.05 K/uL (0-0.5); Eosinophils % (auto) 0.5 %; Hematocrit (blood only) 28.8 % (42-52); Hemoglobin 9.5 g/dL (14.0-18.0); Immature Granulocytes # (auto) 0.09 K/uL (0.00-0.02); Immature Granulocytes % (auto) 0.9 %; Lymphocytes # (auto) 1.14 K/uL (1.2-3.4); Lymphocytes % (auto) 11.3 %; Mean Corpuscular Volume 89.7 fL (80-100); Mean Platelet Volume 10.1 fL (7.4-10.4); Monocytes % (auto) 10.9 %; Neutrophils # (auto) 7.68 K/uL (1.4-6.5); Neutrophils % (auto) 76.3 %; Nucleated RBC # (auto) 0.14 K/uL (0-0); Nucleated RBC % (auto) 1.4 %; Platelet Count 237 K/uL (130-400); RDW Coefficient of Variation 16.3 % (11.5-14.5); RDW Standard Deviation 52.7 fL (36.4-46.3); Red Blood Count 3.21 M/uL (4.7-6.1); White Blood Count 10.07 K/uL (4.8-10.8)
[2018-09-27 05:31] LABS: INR 1.4 (0.9-1.1); Partial Thromboplastin Ratio 1.2; Partial Thromboplastin Time 31.2 Seconds (21.0-31.0); Prothrombin Time 14.1 Seconds (9.0-12.0)
[2018-09-27 05:49] LABS: Albumin Level 3.3 gm/dl (3.4-5.0); BUN Creatinine Ratio 14.5 (10-20); Bilirubin,Total 2.2 mg/dl (0.2-1); Calcium 8.9 mg/dl (8.5-10.1); Creatinine Clr Calc Pharmacy 16.2 ml/min; Est GFR (Non-African American) 12.9; Globulin 3.2 gm/dl (2.5-4.0); Potassium 4.5 mmol/L (3.5-5.1); Total Protein 6.5 gm/dl (6.4-8.2)
[2018-09-27] MEDS: HEPARIN SOD 5,000 UNIT/0.5 ML VIAL SQ SCH ×3 (06:29→21:50)
--- NOTE | 2018-09-27 07:41 | Critical Care Progress Note ---
Date of Service September 27, 2018 Assessment & Plan (1) Admitted to intensive care unit: Reason Critically Ill: 82 y/o who initially presented with ROSC after cardiac arrest and completed therapeutic hypothermia protocol represents after syncopal episode/near arrest. PLAN: NEURO -CAM POSITIVE -Appreciate Neurology consult -No MRI recommended, likely some baseline dementia -Repeat CT head - No acute intracranial abnormality PULM -Sating well on RA -Aspiration pneumonitis-CXR 09/24- Persistent small bilateral pleural effusions with bibasilar opacities -continue rocephin CARDIO -Cause of initial cardiac arrest unclear. -Cont low dose heparin (hematuria is acknowledged) HTN -off pressor support now. Holding home meds as still somewhat hypotensive -CAD- Cont atorvastatin, ASA, Plavix -Paroxysmal A fib- Rate is adequately controlled -Ischemic cardiomyopathy/ EF 35% --> Cards to discuss ICD. /Fluids/Renal: -CKD stage III- Elevated creatinine. -Likely ATN from hypoperfusion. -Trending up, repeat renal US showed no hydronephrosis -FEurea pending -s/p Lasix 80mg administration to encourage urine output. -No fluids ID: -Concern for aspiration -continue Rocephin -Cont trend fever curve. Afebrile at present GI/Nutrition: -CT Abd: Gallbladder wall thickening -Normal LFT's. Will cont trend, may require RUQ U/S in near future -Advanced to AHA diet HEME -Anemia of chronic kidney disease -Stable H/H. Noted mild hematuria. Cont trend q8h -type and screen ENDO -A1C 5.8 -ICU hyperglycemia protocol. Elevated BSG likely 2/2 stress LINES: R IJ Central venous access, PIV x3. DVT prophylaxis: Low Dose Heparin Full Code DISPO: Stable for downgrade out of ICU Supervising Physician Co-Signing Physician Notes Dr. Sanchez was resident physician during care of patient. I separately evaluated patient for weber portions of the history and the exam. I was present during the critical portion of medical decision making, and I discussed the case with the resident. I generally agree with the findings and plan. Patient was discussed in multidisciplinary rounds Patient was discussed with neurology: No indication for MRI as patient's mental status is at or near baseline Consulted nephrology for worsening renal function: No change in renal ultrasound -Given 80 mg Lasix for poor urine output - Fractional excretion of urea - No indication postobstructive process rule out ATN versus AIN. Deferring AICD versus LifeVest at this time continue to monitor on telemetry Transaminitis of unclear etiology -Discontinuing atorvastatin, midodrine, ranexa: Question hepatitis - Send acute hepatitis panel Anemia stable continue DVT prophylaxis with heparin I have personally spent 45 minutes of critical care time in the direct management of this patient. This is a life/limb threatening event. This includes time spent evaluating patient, direct bedside care, chart review, placing orders, interpretation of diagnostic studies, discussion with consultants, patient, and/or family members regarding treatment decisions, as well as other required patient management activities. This time is exclusive of all separately billable procedures, and teaching time and separate from and in addition to any other critical care service time. Subjective Pt with no complaints today Review of Systems Review of Systems: Unobtainable due to cognitive status Physical Exam Physical Exam: General: Alert HEENT: NC/AT Chest: Nontender to palpation. CV: RRR, Normal s1, s2. Resp: Breath sounds clear bilaterally, no increased effort of breathing. Abdomen:Soft, nontender. No guarding Results & Data Vital Signs (Past 12 Hours) Vital Signs Temp Pulse Resp BP Pulse Ox 09/27/18 05:00 77 16 110/54 L 100 09/27/18 04:01 73 17 103/51 L 100 09/27/18 04:00 73 17 100 09/27/18 03:01 74 21 100 09/27/18 03:00 74 21 103/57 L 100 09/27/18 02:00 72 20 92/47 L 97 09/27/18 01:00 71 18 96/56 L 98 09/27/18 00:01 71 16 112/40 L 99 09/27/18 00:00 71 15 99 09/26/18 23:16 75 21 95/51 L 100 09/26/18 22:01 78 21 110/67 97 09/26/18 20:00 36.4 C L 71 17 118/67 96 09/26/18 19:57 75 19 121/71 Laboratory Results Laboratory Results - last 24 hr 09/27/18 09/27/18 09/27/18 05:08 05:08 05:08 WBC 10.07 RBC 3.21 L Hgb 9.5 L Hct 28.8 L MCV 89.7 MCH 29.6 MCHC 33.0 RDW Std Deviation 52.7 H RDW Coeff of Sandra 16.3 H Plt Count 237 MPV 10.1 Immature Gran % (Auto) 0.9 Neut % (Auto) 76.3 Lymph % (Auto) 11.3 [place] % (Auto) 10.9 Eos % (Auto) 0.5 Baso % (Auto) 0.1 Immature Gran # (Auto) 0.09 H Neut # (Auto) 7.68 H Lymph # (Auto) 1.14 L [place] # (Auto) 1.10 H Eos # (Auto) 0.05 Baso # (Auto) 0.01 Absolute Nucleated RBC 0.14 H Nucleated RBC % (auto) 1.4 PT 14.1 H INR 1.4 H APTT 31.2 H PTT Ratio 1.2 Sodium 134 L Potassium 4.5 D Chloride 100 Carbon Dioxide 24 Anion Gap 10.0 BUN 58 H Creatinine 4.01 H D Est Cr Clr Drug Dosing 16.2 Est GFR ( Amer) 15.0 Est GFR (Non-Af Amer) 12.9 BUN/Creatinine Ratio 14.5 Glucose 110 H Calcium 8.9 Phosphorus Magnesium Total Bilirubin 2.2 H AST 227 H ALT 150 H Alkaline Phosphatase 152 H Ammonia Total Protein 6.5 Albumin 3.3 L Globulin 3.2 Albumin/Globulin Ratio 1.0 Urine Color Urine Appearance Urine pH Ur Specific [place] Urine Protein Urine Glucose (UA) Urine Ketones Urine Blood Urine Nitrite Urine Bilirubin Urine Urobilinogen Ur Leukocyte Esterase Urine RBC Urine WBC Ur Epithelial Cells Urine Bacteria Hyaline Casts Ur Random Creatinine Ur Random Urea Nitrogn 09/27/18 09/27/18 09/27/18 08:35 11:15 11:15 WBC RBC Hgb Hct MCV MCH MCHC RDW Std Deviation RDW Coeff of Sandra Plt Count MPV Immature Gran % (Auto) Neut % (Auto) Lymph % (Auto) [place] % (Auto) Eos % (Auto) Baso % (Auto) Immature Gran # (Auto) Neut # (Auto) Lymph # (Auto) [place] # (Auto) Eos # (Auto) Baso # (Auto) Absolute Nucleated RBC Nucleated RBC % (auto) PT INR APTT PTT Ratio Sodium Potassium Chloride Carbon Dioxide Anion Gap BUN Creatinine Est Cr Clr Drug Dosing Est GFR ( Amer) Est GFR (Non-Af Amer) BUN/Creatinine Ratio Glucose Calcium Phosphorus Magnesium Total Bilirubin AST ALT Alkaline Phosphatase Ammonia 25.5 Total Protein Albumin Globulin Albumin/Globulin Ratio Urine Color Urine Appearance Urine pH Ur Specific [place] Urine Protein Urine Glucose (UA) Urine Ketones Urine Blood Urine Nitrite Urine Bilirubin Urine Urobilinogen Ur Leukocyte Esterase Urine RBC Urine WBC Ur Epithelial Cells Urine Bacteria Hyaline Casts Ur Random Creatinine 55.2 Cancelled Ur Random Urea Nitrogn 307 09/27/18 09/27/18 11:15 11:52 WBC RBC Hgb Hct MCV MCH MCHC RDW Std Deviation RDW Coeff of Sandra Plt Count MPV Immature Gran % (Auto) Neut % (Auto) Lymph % (Auto) [place] % (Auto) Eos % (Auto) Baso % (Auto) Immature Gran # (Auto) Neut # (Auto) Lymph # (Auto) [place] # (Auto) Eos # (Auto) Baso # (Auto) Absolute Nucleated RBC Nucleated RBC % (auto) PT INR APTT PTT Ratio Sodium 134 L Potassium 4.6 Chloride 98 Carbon Dioxide 22 Anion Gap 14.0 H BUN 65 H Creatinine 4.15 H Est Cr Clr Drug Dosing 15.7 Est GFR ( Amer) 14.4 Est GFR (Non-Af Amer) 12.4 BUN/Creatinine Ratio 15.6 Glucose 122 H Calcium 8.9 Phosphorus 6.4 H D Magnesium 2.8 H Total Bilirubin 1.9 H AST 260 H ALT 177 H Alkaline Phosphatase 188 H Ammonia Total Protein 6.4 Albumin 3.3 L Globulin 3.1 Albumin/Globulin Ratio 1.1 Urine Color Yellow Urine Appearance Clear Urine pH 5.0 Ur Specific [place] 1.025 Urine Protein 1+ H Urine Glucose (UA) Negative Urine Ketones Negative Urine Blood 1+ H Urine Nitrite Negative Urine Bilirubin Negative Urine Urobilinogen Negative Ur Leukocyte Esterase 1+ H Urine RBC 10-30 H Urine WBC 5-10 H Ur Epithelial Cells 10-20 H Urine Bacteria Negative Hyaline Casts 5-10 H Ur Random Creatinine Ur Random Urea Nitrogn Medications Administered Home Medications atorvastatin 40 mg PO HS 02/01/18 [History Confirmed 09/21/18] nitroglycerin [Nitrostat] 0.4 mg SUBLINGUAL DIRECTED PRN 02/01/18 [History Confirmed 09/21/18] aspirin 81 mg PO DAILY 06/09/18 [History Confirmed 09/21/18] cholecalciferol (vitamin D3) [Vitamin D3] 1,000 unit PO DAILY 06/09/18 [History Confirmed 09/21/18] clopidogrel 75 mg PO DAILY 06/09/18 [History Confirmed 09/21/18] cyanocobalamin (vitamin B-12) [Vitamin B-12] 1,000 mcg PO DAILY 06/09/18 [History Confirmed 09/21/18] famotidine 20 mg PO BID 06/09/18 [History Confirmed 09/21/18] pantoprazole 40 mg PO DAILY 06/09/18 [History Confirmed 09/21/18] hydrocortisone [Proctosol HC] 1 applic EXT Q8H PRN #15 g 08/05/18 [Rx Confirmed 09/21/18] ranolazine 1,000 mg PO BID #60 tab 08/05/18 [Rx Confirmed 09/21/18] sennosides-docusate sodium [Senokot-S] 1 tab PO BID #60 tab 08/05/18 [Rx Confirmed 09/21/18] lancets 33 gauge #100 ea 08/20/18 [Rx Confirmed 09/21/18] furosemide 40 mg PO DAILY 09/21/18 [History Confirmed 09/21/18] midodrine 10 mg PO QAM 09/21/18 [History Confirmed 09/22/18] midodrine 5 mg PO BID 09/22/18 [History Confirmed 09/22/18] Active Medications Acetaminophen (Tylenol) 650 mg PO Q6H PRN PRN Reason: Pain or Fever Stop: 10/24/18 15:37 Last Admin: 09/24/18 15:49 Dose: 650 mg Documented by: Aspirin (Aspirin Chew) 81 mg PO DAILY DAYSI Stop: 10/25/18 08:59 Last Admin: 09/27/18 09:37 Dose: 81 mg Documented by: Atorvastatin Calcium (Lipitor) 40 mg PO HS [facility] Stop: 10/22/18 20:59 Last Admin: 09/26/18 20:14 Dose: 40 mg Documented by: Clopidogrel Bisulfate (Plavix) 75 mg PO DAILY DAYSI Stop: 10/25/18 08:59 Last Admin: 09/27/18 09:33 Dose: 75 mg Documented by: Cyanocobalamin (Vitamin B-12) 1,000 mcg PO DAILY DAYSI Stop: 10/25/18 08:59 Last Admin: 09/27/18 09:33 Dose: 1,000 mcg Documented by: Famotidine (Pepcid) 20 mg PO DAILY [facility]; Protocol Stop: 10/25/18 08:59 Last Admin: 09/27/18 09:34 Dose: 20 mg Documented by: Heparin Sodium (Porcine) (Heparin Sodium (Porcine)) 5,000 units SQ Q8 DAYSI Stop: 10/25/18 21:59 Last Admin: 09/27/18 15:04 Dose: 5,000 units Documented by: Hydrocortisone (Proctozone Hc 2.5%) 1 appln EXT Q8H PRN PRN Reason: hemorrhoids Stop: 10/24/18 12:26 Parenteral Electrolytes (Normosol-R) 1,000 mls @ 100 mls/hr IV .Q10H [facility] Stop: 10/25/18 16:29 Last Admin: 09/25/18 16:54 Dose: Not Given Documented by: Menthol (Nice) 1 wily BUCCAL NOW PRN PRN Reason: Sore Throat Stop: 10/24/18 16:41 Menthol (Nice) 1 wily BUCCAL PRN PRN PRN Reason: Cough Stop: 10/25/18 22:22 Nitroglycerin (Nitrostat) 0.4 mg SL UD PRN PRN Reason: Chest Pain Stop: 10/24/18 12:26 Polyethylene Glycol (Miralax Powder Packet) 17 gm PO DAILY PRN PRN Reason: Constipation Stop: 10/24/18 13:55 Last Admin: 09/26/18 19:25 Dose: 17 gm Documented by: Ranolazine (Ranexa) 1,000 mg PO BID [facility] Stop: 10/24/18 20:59 Last Admin: 09/27/18 09:34 Dose: 1,000 mg Documented by: Senna/Docusate Sodium (Senokot S) 1 tab PO BID [facility] Stop: 10/24/18 20:59 Last Admin: 09/27/18 09:35 Dose: Not Given Documented by: Vitamin D (Vitamin D3) 1,000 units PO DAILY [facility] Stop: 10/25/18 08:59 Last Admin: 09/27/18 09:32 Dose: 1,000 units Documented by: PG Care Time/CCT Critical Care Time: Yes Total Critical Care Time: 45
[2018-09-27] MEDS ORDERED: FUROSEMIDE 80 MG in SYRINGE 0 ML IV STA (08:16)
--- NOTE | 2018-09-27 08:40 | Ultrasound Report ---
US renal/blad retro comp HISTORY: Renal insufficiency worsening pam COMPARISON: 09/24/2018 FINDINGS: Right kidney: Maximum dimension 10.3 cm. No evidence for hydronephrosis. Moderate cortical thinning. Left kidney: No hydronephrosis. Maximum dimension 11.2 cm. Moderate cortical thinning Bladder: Mittal catheter in position. IMPRESSION: 1. Mild renal atrophic change and cortical thinning. 2. No evidence for hydronephrosis. 3. No change from the prior study. The above report was generated using voice recognition software. It may contain grammatical, syntax or spelling errors. Electronically signed by: Crescencio Allen M.D. 09/27/2018 8:39 AM
[2018-09-27] MEDS: CHOLECALCIFEROL 1,000 UNITS TAB PO SCH (09:32)
[2018-09-27] MEDS: CYANOCOBALAMIN 500 MCG TABLET (VITAMIN B-12) PO SCH (09:33)
[2018-09-27] MEDS: CLOPIDOGREL BISULFATE 75 MG TAB PO SCH (09:33)
[2018-09-27] MEDS: MIDODRINE HCL 2.5 MG TAB PO SCH (09:34)
[2018-09-27] MEDS: RANOLAZINE 500 MG ER TAB PO SCH ×2 (09:34→21:51)
[2018-09-27] MEDS: FAMOTIDINE 20 MG TAB PO SCH (09:34)
[2018-09-27] MEDS: DOCUSATE SODIUM/SENNA 50/8.6MG TAB PO SCH ×2 (09:35→21:49)
[2018-09-27] MEDS: ASPIRIN 81 MG CHEW PO SCH (09:37)
--- NOTE | 2018-09-27 09:40 | CT Scan Report ---
CT abd pelvis wo con CLINICAL HISTORY: 82 years-old Male presenting with pam, increasing lfts. TECHNIQUE: Multidetector CT of the abdomen and pelvis was performed without the use of intravenous co ntrast. IV contrast: None. One or more dose lowering techniques were used consistent with the princip les of ALARA (as low as reasonably achievable), including automatic exposure control, mA or kV adjust ment to individual patient size, and/or use of iterative reconstruction. COMPARISON: 09/21/2018. CT DOSE (mGy.cm): The estimated cumulative dose is 919.15 mGy.cm. FINDINGS: Quality Assurance Supervisor Final topogram: Median sternotomy wires. Bilateral pleural effusions. Motion artifact degrades evaluation of the upper abdomen mildly limiting diagnostic sensitivity. Lung bases: Multichamber enlargement of the heart. Coronary artery calcification. Small bilateral ple ural effusions. These are similar to prior. Dependent consolidation volume loss consistent with passi ve atelectasis. This has decreased from prior. Patchy groundglass opacity in the lingula has increase d from prior. Liver: Normal morphology. Borderline hepatic steatosis. Biliary: No gross biliary ductal dilatation allowing for noncontrast technique. Gallbladder decompres sed. Pancreas: Mild parenchymal atrophy. Spleen: Normal noncontrast appearance. Adrenal glands: Normal noncontrast appearance. Kidneys and ureters: Persistent nephrograms indicate renal dysfunction. Cyst suspected at the upper p ole the right kidney. No nephrolithiasis or hydronephrosis. Ureters nondistended. Bladder: Decompressed the Mittal catheter in place. Pelvic organs: Normal noncontrast appearance. Bowel: Normal noncontrast appearance. No bowel obstruction. Duodenal diverticulum suggested at the de scending portion. Peritoneal cavity: Small amount of fluid in the pelvis. No free intraperitoneal gas. Lymph nodes: No gross lymphadenopathy allowing for noncontrast technique. Vasculature: Atherosclerosis with aneurysmal dilatation of the infrarenal abdominal aorta immediately proximal to the bifurcation measuring 4.1 x 3.6 cm in diameter. There is tortuosity and irregularity of the aorta immediately proximal to this with a potential short segment dissection. This is chronic . No surrounding inflammatory change or hematoma. Abdominal wall: Diffuse body wall edema. Foci of gas along the subcutaneous fat of the anterior abdom inal wall likely relates to injections. Musculoskeletal: Degenerative changes of the spine. IMPRESSION: Motion artifact degrades evaluation of the upper abdomen mildly limiting diagnostic sensitivity. 1. Persistent nephrograms indicate renal dysfunction. No hydronephrosis. 2. Borderline hepatic steatosis. 3. Small volume ascites and evidence of volume overload with body wall edema and small bilateral ple ural effusions. 4. Decreased passive atelectasis at the lung bases. 5. Increased patchy infiltrate in the lingula concerning for developing pneumonia. 6. 4.1 cm abdominal aortic aneurysm. Electronically signed by: Demetrius Salguero M.D. 09/27/2018 9:38 AM
--- NOTE | 2018-09-27 09:54 | Neurology Progress Note ---
Date of Service September 27, 2018 Assessment & Plan (1) Anoxic encephalopathy: Post cardiac arrest September 21 with anoxic encephalopathy. This has improved over time and currently does not have any significant encephalopathy. Based on the patient's history I suspect that he has a mild underlying dementia involving predominantly short-term memory secondary to age and medical condition. Certainly the anoxic encephalopathy could have mildly worsened his underlying cognitive function. He has no focal neurologic findings or meningeal signs on exam today. Clinical status and prognosis for recovery improved. CT scans of the head as well as CT angiography were largely unremarkable. Recommendations: 1. I see no need for an MRI of the brain at this time. Certainly, it would tell me the extent of cerebral ischemia past an acute, but I do not believe it would change our clinical treatment plan at this time. 2. Increase activity as able. 3. Currently, I have no further neurologic testing or treatment recommendations to make at this time. Please contact the be of further assistance on this case. Overall, I spent a total 40 minutes with this case including review of records, review of CT films, direct evaluation the patient at bedside, and discussion of the case with the patient and his grandson present in the room, clinical staff, and Dr. Lanie olvera including differential diagnosis and treatment options. Subjective Patient has no complaint of headache, blurry vision, swallowing problems or numbness in the limbs. He feels weak in general but can move his limbs well. He believes that is memory is about the same as usual. His grandson, who is in the room today, states that he is thinking fairly close to his usual. Blood pressure 110/54 with a pulse in the 70s. Temperature is 36.4. Patient has elevated BUN and creatinine and recently elevated liver enzymes and bilirubin. CT scan of the head September [address] angiography showed diffuse plaque but no significant vascular disease. Physical Exam Physical Exam: He is awake and alert. Speech is without aphasia and there may be some very slight dysarthria. He is calm with no signs of agitation or pressured speech. He follows commands well and is pleasant and cooperative. He is oriented to name, age, place, address, and the president. He knew left from right. He did not know the day, the date, month, or the year. Extraocular eye muscles are intact without nystagmus. There is no facial droop. Tongue is midline. With outstretched arms, there is no drift. There is no resting, postural, or action tremor. There is no ataxia with [id number] testing. Strength is 5/5 in all major muscle groups in the arms and legs both proximally and distally with no focal atrophy. Toes are downgoing with plantar stimulation bilaterally. Reflexes are 1/4 throughout. Results & Data Vital Signs (Past 12 Hours) Vital Signs Pulse Resp BP Pulse Ox 09/27/18 05:00 77 16 110/54 L 100 09/27/18 04:01 73 17 103/51 L 100 09/27/18 04:00 73 17 100 09/27/18 03:01 74 21 100 09/27/18 03:00 74 21 103/57 L 100 09/27/18 02:00 72 20 92/47 L 97 09/27/18 01:00 71 18 96/56 L 98 09/27/18 00:01 71 16 112/40 L 99 09/27/18 00:00 71 15 99 09/26/18 23:16 75 21 95/51 L 100 09/26/18 22:01 78 21 110/67 97
[2018-09-27 11:50] LABS: Creatinine Urine Random 55.2 mg/dl
--- NOTE | 2018-09-27 12:18 | Nephrology Consultation ---
Date of Consultation September 27, 2018 Assessment & Plan (1) JANIS (acute kidney injury): -- Oliguric JANIS/CKD related to recent cardiac arrest, hypotension and IV contrast administration -- Will order urine microscopy to assess for ATN casts -- Renal US reviewed: No hydronephrosis -- Volume status and electrolyte balance are currently acceptable. No acute indication for HD at this time -- Will recheck PRP in am -- I have spoken w/ Sheeba Loera (daughter, LEONAA) [phone]. Medical update provided. She will speak w/ her father earl about whether he would ever consider HD. She does note that Mr. Alegria's brother had been on IHD and did well for several years. (2) CKD (chronic kidney disease), stage III: -- Baseline creatinine ~ 1.3 w/ EGFR 45 cc/min (3) Cardiac arrest: -- h/o ICM s/p 5vCABG and RCA stenting. Recent PCI was unsuccessful (4) Abnormal LFTs (liver function tests): -- Elevated bilirubin and LFT. Recommend RUQ US to assess for cholecystitis (5) Admitted to intensive care unit: -- 60 min critical care time provided to the patient today. This was necessary to review medical records, examine patient, and discuss POC w/ ICU team and patient's family. History of Present Illness Reason for Consultation: Oliguric JANIS/CKD Attending Physician: Clint Martinez History of Present Illness Mr. Alegria is an 82 year old white male who is seen at the request of Dr. Dela Cruz for evaluation of oliguric JANIS/CKD. Medical records in the EMR were reviewed today and are summarized as follows: Mr. Alegria has CKD w/ baseline creatinine 1.3 EGFR 45 cc/min. His medical history is also significant for HTN, hyperlipidemia, ASCVD (s/p CABG x 5, RCA stents, recent attempts at PCI unsuccessful), aortic stenosis and AAA. On 09/21/18 Mr. Alegria was found by his family unresponsive and in cardiac arrest. He received 15 min CPR w/ ROSC. He was transported to [facility] where he underwent hypothermia protocol and received pressor support. He required imaging of the head, neck, chest and abdomen. CTA 09/21/18 revealed possible pneumonitis and gall bladder distention. Creatinine at the time of admission was 1.6. This has progressively risen to 4.0 and patient has become oliguric. Urinalysis is currently pending. Renal US 09/27/18 revealed 11 cm kidneys w/ cortical thinning but no hydronephrosis. Bilirubin and LFT's are trending upward. Allergies Allergy/AdvReac Type Severity Reaction Status Date / Time iodine Allergy Severe Unknown Verified 08/26/18 14:01 Penicillins Allergy Severe AMOXIL = Verified 08/26/18 14:01 ANAPHYLACTIC RXN clavulanic acid Allergy Unknown Unknown Verified 08/26/18 14:01 morphine AdvReac Mild VOMITING Verified 08/26/18 14:01 amoxicillin AdvReac Verified 08/26/18 14:01 Home Medications Home Medications Medication Instructions Recorded Confirmed Type atorvastatin 40 mg PO HS 02/01/18 09/21/18 History nitroglycerin [Nitrostat] 0.4 mg SUBLINGUAL DIRECTED PRN 02/01/18 09/21/18 History aspirin 81 mg PO DAILY 06/09/18 09/21/18 History cholecalciferol (vitamin D3) 1,000 unit PO DAILY 06/09/18 09/21/18 History [Vitamin D3] clopidogrel 75 mg PO DAILY 06/09/18 09/21/18 History cyanocobalamin (vitamin B-12) 1,000 mcg PO DAILY 06/09/18 09/21/18 History [Vitamin B-12] famotidine 20 mg PO BID 06/09/18 09/21/18 History pantoprazole 40 mg PO DAILY 06/09/18 09/21/18 History hydrocortisone [Proctosol HC] 1 applic EXT Q8H PRN #15 g 08/05/18 09/21/18 Rx ranolazine 1,000 mg PO BID #60 tab 08/05/18 09/21/18 Rx sennosides-docusate sodium 1 tab PO BID #60 tab 08/05/18 09/21/18 Rx [Senokot-S] lancets 33 gauge #100 ea 08/20/18 09/21/18 Rx furosemide 40 mg PO DAILY 09/21/18 09/21/18 History midodrine 10 mg PO QAM 09/21/18 09/22/18 History midodrine 5 mg PO BID 09/22/18 09/22/18 History Patient History Medical History Chronic combined systolic and diastolic heart failure Ischemic cardiomyopathy Surgical History H/O heart artery stent (Resolved) History of quadruple bypass (Resolved) Family History Other Family history non-contributory Social History Preferred Language: [place] Communication Ability: Unable Beliefs That Will Affect Care: None marital status: Current Living Situation: Spouse Feels Safe at Home: Yes Smoking Status: Never smoker Second Hand Exposure: No Hx Alcohol Use: No Hx Substance Use: No Review of Systems Constitutional: no fever Respiratory: no dyspnea Cardiovascular: no chest pain and no dyspnea Gastrointestinal: no abdominal pain, no vomiting and no diarrhea/loose stools Genitourinary: no flank pain Physical Exam Constitutional: + frail appearing Eyes: PERRL, conjunctivae normal, anicteric sclerae Neck: trachea midline, no thyromegaly Respiratory: normal respiratory effort, lungs clear to auscultation Cardiovascular: Rate/Rhythm: regular rate and regular rhythm Extremities: + edema (trace) Gastrointestinal (Abdomen): normal bowel sounds, soft, nontender, no hepatosplenomegaly Skin: no rashes, warm and dry Neurologic: awake; not confused Results & Data Vital Signs (Past 12 Hours) Vital Signs Pulse Resp BP Pulse Ox 09/27/18 05:00 77 16 110/54 L 100 09/27/18 04:01 73 17 103/51 L 100 09/27/18 04:00 73 17 100 09/27/18 03:01 74 21 100 09/27/18 03:00 74 21 103/57 L 100 09/27/18 02:00 72 20 92/47 L 97 09/27/18 01:00 71 18 96/56 L 98 Laboratory Results Laboratory Tests 09/25/18 09/27/18 09/27/18 14:30 05:08 05:08 WBC 10.07 Hgb 9.5 L Hct 28.8 L Plt Count 237 Sodium 134 L Potassium 4.5 D Chloride 100 Carbon Dioxide 24 BUN 58 H Creatinine 4.01 H D Glucose 110 H Total Bilirubin 2.2 H AST 227 H ALT 150 H Alkaline Phosphatase 152 H Urine Color Dark Yellow Urine Appearance Cloudy A Urine pH 5.0 Ur Specific [place] 1.029 Urine Protein 1+ H Urine Glucose (UA) Negative Urine Ketones Trace H Urine Blood 3+ H Urine Nitrite Negative Urine Bilirubin Negative Ur Leukocyte Esterase 2+ H Urine WBC (Auto) 10-30 H Urine RBC (Auto) >30 H U Hyaline Cast (Auto) 1-5
[2018-09-27 12:35] LABS: Albumin Globulin Ratio 1.1 (0.9-2); Albumin Level 3.3 gm/dl (3.4-5.0); BUN Creatinine Ratio 15.6 (10-20); Bilirubin,Total 1.9 mg/dl (0.2-1); Calcium 8.9 mg/dl (8.5-10.1); Creatinine Clr Calc Pharmacy 15.7 ml/min; Est GFR (African American) 14.4; Est GFR (Non-African American) 12.4; Globulin 3.1 gm/dl (2.5-4.0); Magnesium 2.8 mg/dl (1.8-2.4); Potassium 4.6 mmol/L (3.5-5.1); Total Protein 6.4 gm/dl (6.4-8.2)
[2018-09-27 12:44] LABS: Phosphorus 6.4 mg/dl (2.5-4.9)
[2018-09-27 12:59] LABS: Appearance Urine Clear (Clear); Bilirubin Urine Negative (Negative); Blood Urine 1+ (Negative); Color Urine Yellow; Glucose Urine UA Negative (Negative); Ketones Urine Negative (Negative); Leukocyte Esterase Urine 1+ (Negative); Nitrite Urine Negative (Negative); Protein Urine 1+ (Negative); Specific Gravity Urine 1.025 (1.000-1.030); Urobilinogen Urine Negative (Negative)
[2018-09-27 13:04] LABS: Bacteria Urine Negative (Negative)
--- NOTE | 2018-09-27 17:48 | Cardiology Progress Note ---
Date of Service September 27, 2018 Assessment & Plan (1) Cardiac arrest: 2. Coronary artery disease--5 vessel CABG, RCA stents; cardiac cath 07/26/18 with unsuccessful attempt to intervene on PAV to PDA Y graft stenosis 3. Ischemic cardiomyopathy 4. JANIS 5. 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 Aortic stenosis/Mitral regurgitation 7. Anemia 8. Paroxysmal atrial fibrillation 9. MSK chest wall pain Hemodynamically stable. Sinus rhythm without recurrent AF or bradyarrhythmia Worsening oliguric renal failure Seems well perfused. Worsening systemic venous congestion. Respiratory status stable. -- Continue DAPT with ASA/Plavix -- Hold off on anticoagulation -- Diuretics per nephrology -- Off antihypertensives/antianginal therapy due to bordeline BPs. -- Liimited role for ranexa -- Can discontinue -- Continue statin -- Discussion of ICD pending clinical course Subjective Feels like "running down" this afternoon. Denies chest pain or shortness of breath. No appetite. Tele reviewed -- no events. Review of Systems Review of Systems: All systems reviewed & are unremarkable except as noted in HPI & below Physical Exam Physical Exam: General: Comfortable, up in chair HEENT: Sclerae anicteric Lungs: Decreased breath sounds at the bases bilaterally Cardiac: Regular rate with occasional ectopic beats, 3/6 systolic ejection murmur heard best at the right upper sternal border Abdomen: Soft, nontender, nondistended, positive bowel sounds. Extremities: Warm, 2+ edema to mid [place] Skin: Ecchymosis, superficial ulceration over anterior aspect of chest wall Neuro: Nonfocal Psych: Alert Results & Data Vital Signs (Past 12 Hours) Vital Signs Temp Pulse Resp BP Pulse Ox 09/27/18 16:00 36.7 C 71 98 09/27/18 15:01 73 17 101/55 L 98 09/27/18 14:11 72 20 102/56 L 09/27/18 14:03 78 21 82/44 L 09/27/18 13:00 74 22 96/57 L 95 09/27/18 12:01 36.7 C 71 20 104/54 L 97 09/27/18 11:00 78 20 102/63 96 09/27/18 10:00 74 17 105/65 96 09/27/18 09:00 77 18 111/58 L 94 09/27/18 08:00 36.8 C 74 20 96/58 L 97 09/27/18 07:33 77 21 99/64 L 98
--- NOTE | 2018-09-27 21:34 | Hospitalist Progress Note ---
Date of Service September 27, 2018 Assessment & Plan (1) CAD (coronary artery disease): Prior cath in 07/2018 without ability to intervene. - Syncopal episode of 60 s, transferred to ICU. - Cardiology following,appreciate recs. Pt now in NSR.Hold off anticoagulation for now. It could be considered in the future since pt had paroxismal afibs. - There is no clear explanation for the syncope and cardiac arrest. - Management by packager hand. (2) Pneumonia: Concern for aspiration either as initiative event (less likely) or during his code. - Was on ceftriaxone per ICU team - Stopped by 09/24. (3) JANIS (acute kidney injury): Baseline Cr ~1.1-1.2. Cr on admission was 1.9. Likely ATN from hypoperfusion during code. - Support BP - Monitor Cr - Cr was actually up to 2.5-->2.8-->2.93; BUN 38-->46. - as per ICU team Consulted nephro. (4) Cardiac arrest: Likely 20-30 minutes of CPR prior to ROSC in the ED. At least 15 minutes of CPR prior to EMT arrival at home. - Elevated troponin now, 0.202-->0.180 trending down. Most likely due to the CPR that was given during the cardiac arrest. - Pt has now paroxysmal afibs which he did not have before or did not know of. Due to ongoing hematuria , starting heparin drip for afibs is contraindicated. - Continue only clopidogrel and aspirin 81. - Started Metoprolol tart 12.5 mg BID to control rate better. - Due to low rate <100 bpm pt is not candidate for diltiazem or amiodarone drip. - Appreciate cardiology recommendations, they will continue to follow. - Cardiology will discuss ICD given his unexplained code Appreciate input from cardio: Hemodynamically stable. Sinus rhythm without recurrent AF or bradyarrhythmia Worsening oliguric renal failure Seems well perfused. Worsening systemic venous congestion. Respiratory status stable. -- Continue DAPT with ASA/Plavix -- Hold off on anticoagulation -- Diuretics per nephrology -- Off antihypertensives/antianginal therapy due to bordeline BPs. -- Liimited role for ranexa -- Can discontinue -- Continue statin -- Discussion of ICD pending clinical course (5) Anoxic encephalopathy: - See above (6) HTN (hypertension), benign: BP normal after being on pressors during his cooling. - Holding most oral meds (7) DVT prophylaxis: Heparin for DVT stopped due to hematuria , and started SCD-s at rest. Subjective Patient seen at bedside. He was sitting in chair. Patient denies any new complaints. Review of Systems Review of Systems: All systems reviewed & are unremarkable except as noted in HPI & below Physical Exam Physical Exam: Constitutional: WD/WN, vitals as above well developed and well nourished Eyes: PERRL, conjunctivae normal, anicteric sclerae ENMT: external ear and nose normal, oropharynx normal Ears: + hearing impairment Neck: trachea midline, no thyromegaly Respiratory: normal respiratory effort, lungs clear to auscultation Cardiovascular: RRR, no murmur, no edema Rate/Rhythm: + irregularly irregular Chest (Breasts): normal inspection/palpation of breasts Gastrointestinal (Abdomen): normal bowel sounds, soft, nontender, no hepatosplenomegaly Musculoskeletal: no cyanosis or clubbing, extremities motor strength 5/5 Skin: no rashes, warm and dry Neurologic: awake Psychiatric: Affect: + blunted affect Thought Process: + incoherent thought process Thought Content: + cognitive distortions Lymphatic: no cervical or axillary lymphadenopathy Results & Data Vital Signs (Past 12 Hours) Vital Signs Temp Pulse Resp BP Pulse Ox 09/27/18 16:00 36.7 C 71 98 09/27/18 15:01 73 17 101/55 L 98 09/27/18 14:11 72 20 102/56 L 09/27/18 14:03 78 21 82/44 L 09/27/18 13:00 74 22 96/57 L 95 09/27/18 12:01 36.7 C 71 20 104/54 L 97 09/27/18 11:00 78 20 102/63 96 09/27/18 10:00 74 17 105/65 96 PG Care Time/CCT Total # of Minutes Spent Total Time Spent with Patient: Total time spent is greater than 50% in coordination of care (as documented) at patient's floor/unit and/or counseling patient: (1) CAD (coronary artery disease) Associated angina: with unstable angina Coronary Disease-Associated Artery/Lesion type: [place] artery [place] vs. transplanted heart: [place] heart Qualified Code(s): I25.110 - Atherosclerotic heart disease of [place] coronary artery with unstable angina pectoris
[2018-09-28] MEDS: HEPARIN SOD 5,000 UNIT/0.5 ML VIAL SQ SCH ×2 (05:03→14:49)
[2018-09-28 05:20] LABS: Basophils # (auto) 0.01 K/uL (0-0.2); Basophils % (auto) 0.1 %; Eosinophils # (auto) 0.06 K/uL (0-0.5); Eosinophils % (auto) 0.6 %; Hemoglobin 9.5 g/dL (14.0-18.0); Immature Granulocytes # (auto) 0.07 K/uL (0.00-0.02); Immature Granulocytes % (auto) 0.7 %; Lymphocytes # (auto) 1.17 K/uL (1.2-3.4); Mean Corpuscular Hgb Conc 32.8 g/dL (32-36); Mean Platelet Volume 10.5 fL (7.4-10.4); Monocytes # (auto) 1.33 K/uL (0.11-0.59); Monocytes % (auto) 12.5 %; Neutrophils # (auto) 7.96 K/uL (1.4-6.5); Neutrophils % (auto) 75.1 %; Nucleated RBC % (auto) 0.9 %; Platelet Count 250 K/uL (130-400); RDW Coefficient of Variation 16.6 % (11.5-14.5); RDW Standard Deviation 53.1 fL (36.4-46.3); Red Blood Count 3.26 M/uL (4.7-6.1)
[2018-09-28 05:30] LABS: INR 1.5 (0.9-1.1); Partial Thromboplastin Ratio 1.1; Partial Thromboplastin Time 30.4 Seconds (21.0-31.0); Prothrombin Time 14.8 Seconds (9.0-12.0)
[2018-09-28 05:46] LABS: Albumin Globulin Ratio 1.1 (0.9-2); Albumin Level 3.4 gm/dl (3.4-5.0); BUN Creatinine Ratio 15.4 (10-20); Bilirubin Direct 0.8 mg/dl (0-0.2); Calcium 8.9 mg/dl (8.5-10.1); Creatinine Clr Calc Pharmacy 14.3 ml/min; Est GFR (African American) 12.9; Est GFR (Non-African American) 11.1; Globulin 3.1 gm/dl (2.5-4.0); Potassium 4.9 mmol/L (3.5-5.1); Total Protein 6.5 gm/dl (6.4-8.2)
--- NOTE | 2018-09-28 07:01 | Ultrasound Report ---
BILIARY ULTRASOUND CLINICAL HISTORY: elevated LFTs COMPARISON STUDY: CT scan dated 09/27/2018 FINDINGS: Pancreas appear normal as visualized. There is slight increase in hepatic echogenicity. No focal hepatic masses are visualized. There is trace perihepatic fluid present. There is no ductal dil atation. The common bile duct measured 4 mm. There is biphasic flow within the main portal vein. There is a right pleural effusion. There was gallbladder wall thickening. The technologist reported a negative sonographic Meeks sign. No calculi were visualized. IMPRESSION: 1. Gallbladder wall thickening, but no calculi identified. Negative sonographic Meeks sign. 2. Right pleural effusion 3. Slight increase in hepatic echogenicity. No focal hepatic masses. Trace ascites. 4. No ductal dilatation 5. Biphasic flow within the main portal vein Electronically signed by: Hermelindo Maravilla M.D. 09/28/2018 7:00 AM
--- NOTE | 2018-09-28 07:59 | Critical Care Progress Note ---
Date of Service September 28, 2018 Assessment & Plan (1) Admitted to intensive care unit: Reason Critically Ill: 82 y/o who initially presented with ROSC after cardiac arrest and completed therapeutic hypothermia protocol currently with significant renal failure requiring dialysis. PLAN: NEURO -CAM POSITIVE -Appreciate Neurology consult -No MRI recommended, likely some baseline dementia -Repeat CT head - No acute intracranial abnormality PULM -Sating well on RA -Aspiration pneumonitis-CXR 09/24- Persistent small bilateral pleural effusions with bibasilar opacities -continue rocephin CARDIO -Cause of initial cardiac arrest unclear. -Cardiac cath today--deferring on lifevest vs. ICD placement. -Cont low dose heparin (hematuria is acknowledged) HTN -off pressor support now. Holding home meds as still somewhat hypotensive -CAD- Cont ASA, Plavix -Paroxysmal A fib- Rate is adequately controlled -Ischemic cardiomyopathy/ EF 35% /Fluids/Renal: -Cr elevation and CKD-now requiring dialysis -Vascular consulted for permaCath placement -Fractional excretion of urea-suggestive of intrinsic renal pathology -renal US -consistently showed no hydronephrosis -appreciate nephro consult -urinary output poor even s/p Lasix 80mg administration to encourage urine output. -renal diet started -No fluids ID: -Concern for aspiration -continue Rocephin -Cont trend fever curve. Afebrile at present GI/Nutrition: -CT Abd: Gallbladder wall thickening -US gallbladder unremarkable -LFTs now indicating transaminitis--stopping statin, midrodrine and ranexa -renal diet HEME -Anemia of chronic kidney disease -Stable H/H. Noted mild hematuria. Cont trend q8h -type and screen ENDO -A1C 5.8 -sugars persistently elevated -ICU hyperglycemia protocol. LINES: R IJ Central venous access, PIV x3. DVT prophylaxis: Low Dose Heparin Full Code Supervising Physician Co-Signing Physician Notes Dr. Sanchez was resident physician during care of patient. I separately evaluated patient for weber portions of the history and the exam. I was present during the critical portion of medical decision making, and I discussed the case with the resident. I generally agree with the findings and plan. Patient was discussed in multidisciplinary rounds Patient was discussed with nephrology: Will likely require dialysis tomorrow if no improvement Deferring AICD versus LifeVest at this time continue to monitor on telemetry Discussed with cardiology service, if the transaminitis and acute kidney injury was secondary to poor forward flow we could attempt blood pressure support with vasoactive medication however if this was the ultimate etiology significant cardiac or support would come in the means of a left ventricular assist device and the utility and indication of this is suspect. Transaminitis of unclear etiology -Discontinuing atorvastatin, midodrine, ranexa: Question hepatitis Anemia stable continue DVT prophylaxis with heparin Had extensive discussion with the family and the patient. Patient desires to live as long as possible, I questioned where quality of life falls into that and he did admit quality is a consideration but he did not specify to what ends. He is agreeable with temporary dialysis at this point and he has consented for a temporary hemodialysis catheter. We will consult vascular surgery for permacath placement. I have personally spent 50 minutes of critical care time in the direct zayda gement of this patient. This is a life/limb threatening event. This includes time spent evaluating patient, direct bedside care, chart review, placing orders, interpretation of diagnostic studies, discussion with consultants, patient, and/or family members regarding treatment decisions, as well as other required patient management activities. This time is exclusive of all separately billable procedures, and teaching time and separate from and in addition to any other critical care service time. Clinical update: 1800 emergently called to bedside for bradycardia with loss of mental status. Patient lost pulse and entered PEA and code was called. CPR was started with family present in the room, the cardiac arrest occurred with family present at the bedside. Please refer to code documentation for additional details. I discussed the case at bedside with Dr. Christine. With bedside ultrasound we are able to determine the patient was definitively and a cardiogenic shock there was PEA with minimal cardiac squeeze despite dopamine, dobutamine, epinephrine, Levophed. Patient was intubated by anesthesiology, I had placed a left subclavian for vasoactive medication infusions. When patient eventually entered refractory cardiogenic shock and was unresponsive to vasoactive medications Dr. Christine discussed the patient's condition with the family the decision was made to cease all further heroic resuscitative efforts and infusions were stopped and patient with family at the bedside at 1820. Subjective Mr. Alegria stated that he was not feeling too well this AM. Had family meeting later however, and he expressed strongly that he wants everything done to keep him alive. Denied chest pain, SOB currently. Review of Systems Review of Systems: All systems reviewed & are unremarkable except as noted in HPI & below Physical Exam Physical Exam: General: Alert, oriented. HEENT: NC/AT Chest: Nontender to palpation. CV: RRR, Normal s1, s2. Resp: Breath sounds clear but decreased bilaterally, no increased effort of breathing. Abdomen: Soft, nontender. No guarding. Extremities: SCDs Results & Data Vital Signs (Past 12 Hours) Vital Signs Temp Pulse Resp BP Pulse Ox 09/28/18 07:17 85 09/28/18 06:00 81 21 104/50 L 100 09/28/18 05:00 77 20 90/42 L 94 09/28/18 04:00 36.6 C 90 21 104/68 99 09/28/18 03:00 93 H 26 H 98/64 L 100 09/28/18 02:00 86 19 111/61 96 09/28/18 01:00 86 22 115/58 L 100 09/28/18 00:00 36.5 C 63 17 92/53 L 98 09/27/18 23:00 77 14 133/69 99 09/27/18 22:00 84 22 119/69 99 09/27/18 21:00 84 28 H 101/64 94 09/27/18 20:00 79 21 111/54 L 97 Laboratory Results Laboratory Results - last 24 hr 09/28/18 09/28/18 09/28/18 04:49 04:49 04:49 WBC 10.60 RBC 3.26 L Hgb 9.5 L Hct 29.0 L MCV 89.0 MCH 29.1 MCHC 32.8 RDW Std Deviation 53.1 H RDW Coeff of Sandra 16.6 H Plt Count 250 MPV 10.5 H Immature Gran % (Auto) 0.7 Neut % (Auto) 75.1 Lymph % (Auto) 11.0 [place] % (Auto) 12.5 Eos % (Auto) 0.6 Baso % (Auto) 0.1 Immature Gran # (Auto) 0.07 H Neut # (Auto) 7.96 H Lymph # (Auto) 1.[address] [place] # (Auto) 1.33 H Eos # (Auto) 0.06 Baso # (Auto) 0.01 Absolute Nucleated RBC 0.10 H Nucleated RBC % (auto) 0.9 PT 14.8 H INR 1.5 H APTT 30.4 PTT Ratio 1.1 POC pH POC pCO2 POC pO2 POC HCO3 POC Total CO2 POC Base Excess POC ABG O2 Sat Sodium 133 L Potassium 4.9 Chloride 98 Carbon Dioxide 22 Anion Gap 13.0 H BUN 70 H Creatinine 4.55 H* D Est Cr Clr Drug Dosing 14.3 Est GFR ( Amer) 12.9 Est GFR (Non-Af Amer) 11.1 BUN/Creatinine Ratio 15.4 Glucose 131 H Calcium 8.9 Phosphorus Magnesium Total Bilirubin 2.0 H Direct Bilirubin 0.8 H AST 468 H ALT 343 H Alkaline Phosphatase 251 H Total Protein 6.5 Albumin 3.4 Globulin 3.1 Albumin/Globulin Ratio 1.1 09/28/18 09/28/18 04:49 12:51 WBC RBC Hgb Hct MCV MCH MCHC RDW Std Deviation RDW Coeff of Sandra Plt Count MPV Immature Gran % (Auto) Neut % (Auto) Lymph % (Auto) [place] % (Auto) Eos % (Auto) Baso % (Auto) Immature Gran # (Auto) Neut # (Auto) Lymph # (Auto) [place] # (Auto) Eos # (Auto) Baso # (Auto) Absolute Nucleated RBC Nucleated RBC % (auto) PT INR APTT PTT Ratio POC pH 7.35 POC pCO2 37 POC pO2 < 32 L POC HCO3 21 POC Total CO2 22 L POC Base Excess -5.0 POC ABG O2 Sat 37.0 L Sodium Potassium Chloride Carbon Dioxide Anion Gap BUN Creatinine Est Cr Clr Drug Dosing Est GFR ( Amer) Est GFR (Non-Af Amer) BUN/Creatinine Ratio Glucose Calcium Phosphorus 7.6 H Magnesium 3.1 H Total Bilirubin Direct Bilirubin AST ALT Alkaline Phosphatase Total Protein Albumin Globulin Albumin/Globulin Ratio Medications Administered Home Medications atorvastatin 40 mg PO HS 02/01/18 [History Confirmed 09/21/18] nitroglycerin [Nitrostat] 0.4 mg SUBLINGUAL DIRECTED PRN 02/01/18 [History Confirmed 09/21/18] aspirin 81 mg PO DAILY 06/09/18 [History Confirmed 09/21/18] cholecalciferol (vitamin D3) [Vitamin D3] 1,000 unit PO DAILY 06/09/18 [History Confirmed 09/21/18] clopidogrel 75 mg PO DAILY 06/09/18 [History Confirmed 09/21/18] cyanocobalamin (vitamin B-12) [Vitamin B-12] 1,000 mcg PO DAILY 06/09/18 [History Confirmed 09/21/18] famotidine 20 mg PO BID 06/09/18 [History Confirmed 09/21/18] pantoprazole 40 mg PO DAILY 06/09/18 [History Confirmed 09/21/18] hydrocortisone [Proctosol HC] 1 applic EXT Q8H PRN #15 g 08/05/18 [Rx Confirmed 09/21/18] ranolazine 1,000 mg PO BID #60 tab 08/05/18 [Rx Confirmed 09/21/18] sennosides-docusate sodium [Senokot-S] 1 tab PO BID #60 tab 08/05/18 [Rx Confirmed 09/21/18] lancets 33 gauge #100 ea 08/20/18 [Rx Confirmed 09/21/18] furosemide 40 mg PO DAILY 09/21/18 [History Confirmed 09/21/18] midodrine 10 mg PO QAM 09/21/18 [History Confirmed 09/22/18] midodrine 5 mg PO BID 09/22/18 [History Confirmed 09/22/18] Active Medications Acetaminophen (Tylenol) 650 mg PO Q6H PRN PRN Reason: Pain or Fever Stop: 10/24/18 15:37 Last Admin: 09/24/18 15:49 Dose: 650 mg Documented by: Aspirin (Aspirin Chew) 81 mg PO DAILY [facility] Stop: 10/25/18 08:59 Last Admin: 09/28/18 09:20 Dose: 81 mg Documented by: Atorvastatin Calcium (Lipitor) 40 mg PO HS [facility] Stop: 10/22/18 20:59 Last Admin: 09/26/18 20:14 Dose: 40 mg Documented by: Clopidogrel Bisulfate (Plavix) 75 mg PO DAILY [facility] Stop: 10/25/18 08:59 Last Admin: 09/28/18 09:17 Dose: 75 mg Documented by: Cyanocobalamin (Vitamin B-12) 1,000 mcg PO DAILY [facility] Stop: 10/25/18 08:59 Last Admin: 09/28/18 09:17 Dose: 1,000 mcg Documented by: Famotidine (Pepcid) 20 mg PO DAILY [facility]; Protocol Stop: 10/25/18 08:59 Last Admin: 09/28/18 09:16 Dose: 20 mg Documented by: Heparin Sodium (Porcine) (Heparin Sodium (Porcine)) 5,000 units SQ Q8 DAYSI Stop: 10/25/18 21:59 Last Admin: 09/28/18 05:03 Dose: 5,000 units Documented by: Hydrocortisone (Proctozone Hc 2.5%) 1 appln EXT Q8H PRN PRN Reason: hemorrhoids Stop: 10/24/18 12:26 Parenteral Electrolytes (Normosol-R) 1,000 mls @ 100 mls/hr IV .Q10H DAYSI Stop: 10/25/18 16:29 Last Admin: 09/25/18 16:54 Dose: Not Given Documented by: Dobutamine HCl/Dextrose (Dobutamine / D5w) 500 mg in 250 mls @ 26.76 mls/hr IV .Q9H21M DAYSI; Protocol Stop: 10/28/18 13:30 Last Admin: 09/28/18 13:48 Dose: 10 mcg/kg/min, 26.8 mls/hr Documented by: Clindamycin Phosphate (Cleocin) 600 mg in 54 mls @ 100 mls/hr IV PREOP DAYSI Stop: 09/30/18 05:59 Menthol (Nice) 1 wily BUCCAL NOW PRN PRN Reason: Sore Throat Stop: 10/24/18 16:41 Menthol (Nice) 1 wily BUCCAL PRN PRN PRN Reason: Cough Stop: 10/25/18 22:22 Nitroglycerin (Nitrostat) 0.4 mg SL UD PRN PRN Reason: Chest Pain Stop: 10/24/18 12:26 Polyethylene Glycol (Miralax Powder Packet) 17 gm PO DAILY PRN PRN Reason: Constipation Stop: 10/24/18 13:55 Last Admin: 09/26/18 19:25 Dose: 17 gm Documented by: Senna/Docusate Sodium (Senokot S) 1 tab PO BID [facility] Stop: 10/24/18 20:59 Last Admin: 09/28/18 09:19 Dose: Not Given Documented by: Sevelamer HCl (Renagel) 800 mg PO TIDM DAYSI Stop: 10/28/18 11:59 Last Admin: 09/28/18 13:19 Dose: 800 mg Documented by: Vitamin D (Vitamin D3) 1,000 units PO DAILY [facility] Stop: 10/25/18 08:59 Last Admin: 09/28/18 09:17 Dose: 1,000 units Documented by: PG Care Time/CCT Critical Care Time: Yes Total Critical Care Time: 50
[2018-09-28] MEDS: FAMOTIDINE 20 MG TAB PO SCH (09:16)
[2018-09-28] MEDS: CHOLECALCIFEROL 1,000 UNITS TAB PO SCH (09:17)
[2018-09-28] MEDS: CYANOCOBALAMIN 500 MCG TABLET (VITAMIN B-12) PO SCH (09:17)
[2018-09-28] MEDS: CLOPIDOGREL BISULFATE 75 MG TAB PO SCH (09:17)
[2018-09-28] MEDS: DOCUSATE SODIUM/SENNA 50/8.6MG TAB PO SCH (09:19)
[2018-09-28] MEDS: ASPIRIN 81 MG CHEW PO SCH (09:20)
[2018-09-28 09:35] LABS: Magnesium 3.1 mg/dl (1.8-2.4); Phosphorus 7.6 mg/dl (2.5-4.9)
--- NOTE | 2018-09-28 10:58 | Nephrology Progress Note ---
Date of Service September 28, 2018 Assessment & Plan (1) JANIS (acute kidney injury): -- JANIS/CKD related to recent cardiac arrest, hypotension and IV contrast administration -- Urinalysis w/ only hyaline casts. Patient remains oliguric -- Renal US reviewed: No hydronephrosis -- Volume status and electrolyte balance are currently acceptable. No acute indication for HD at this time -- Will recheck PRP in am -- Discussed JANIS w/ patient's family today. They understand that HD may become necessary. Indications/benefits/risks and alternatives to HD were discussed in detail. Patient and family wish to discuss his wishes for ongoing medical care. They are leaning toward pursuing HD if needed (2) CKD (chronic kidney disease), stage III: -- Baseline creatinine ~ 1.3 w/ EGFR 45 cc/min (3) Cardiac arrest: -- h/o ICM s/p 5vCABG and RCA stenting. Recent PCI was unsuccessful -- Cardiac arrest s/p CPR with ROSC. Patient may require AICD or LifeVest (4) Abnormal LFTs (liver function tests): -- Elevated bilirubin and LFT. RUQ US revealed thickened GB wall. No obstructing stone (5) Admitted to intensive care unit: -- 40 min critical care time provided to the patient today. This was necessary to review medical records, examine patient, and discuss POC w/ ICU team and patient's family. Subjective Mr. Alegria was seen & examined in the ICU this morning. He reports diffuse abdominal discomfort and nausea. Review of Systems Constitutional: no fever Respiratory: no dyspnea Cardiovascular: no chest pain Gastrointestinal: + abdominal pain and + nausea; no vomiting and no diarrhea/loose stools Physical Exam Constitutional: + frail appearing Eyes: PERRL, conjunctivae normal, anicteric sclerae Neck: trachea midline, no thyromegaly Respiratory: normal respiratory effort, lungs clear to auscultation Cardiovascular: Rate/Rhythm: regular rate and regular rhythm Extremities: + edema (trace) Gastrointestinal (Abdomen): normal bowel sounds, soft, nontender, no hepatosplenomegaly Skin: no rashes, warm and dry Neurologic: awake; not confused Results & Data Vital Signs (Past 12 Hours) Vital Signs Temp Pulse Resp BP Pulse Ox 09/28/18 09:30 75 18 98/51 L 95 09/28/18 09:00 76 20 85/47 L 91 09/28/18 08:21 82 16 89/46 L 90 09/28/18 08:20 81 22 69/35 L 98 09/28/18 08:11 67 19 90/58 L 100 09/28/18 08:10 86 20 100 09/28/18 08:00 36.7 C 86 19 99 09/28/18 07:17 85 09/28/18 07:00 83 16 105/61 100 09/28/18 06:00 81 21 104/50 L 100 09/28/18 05:00 77 20 90/42 L 94 09/28/18 04:00 36.6 C 90 21 104/68 99 09/28/18 03:00 93 H 26 H 98/64 L 100 09/28/18 02:00 86 19 111/61 96 09/28/18 01:00 86 22 115/58 L 100 09/28/18 00:00 36.5 C 63 17 92/53 L 98 09/27/18 23:00 77 14 133/69 99 Laboratory Results Laboratory Tests 09/28/18 09/28/18 04:49 04:49 WBC 10.60 Hgb 9.5 L Hct 29.0 L Plt Count 250 Sodium 133 L Potassium 4.9 Chloride 98 Carbon Dioxide 22 BUN 70 H Creatinine 4.55 H* D Glucose 131 H Total Bilirubin 2.0 H AST 468 H ALT 343 H Alkaline Phosphatase 251 H Laboratory Tests 09/27/18 11:15 Urine Color Yellow Urine Appearance Clear Urine pH 5.0 Ur Specific [place] 1.025 Urine Protein 1+ H Urine Glucose (UA) Negative Urine Ketones Negative Urine Blood 1+ H Urine Nitrite Negative Urine Bilirubin Negative Urine Urobilinogen Negative Ur Leukocyte Esterase 1+ H Urine RBC 10-30 H Urine WBC 5-10 H Ur Epithelial Cells 10-20 H Urine Bacteria Negative Hyaline Casts 5-10 H
--- NOTE | 2018-09-28 11:41 | Consultation ---
Date of Consultation September 28, 2018 Assessment & Plan (1) JANIS (acute kidney injury): Pt also seen by Dr Rich, pt scheduled for permcath insertion later today. Procedure discussed with pt and family. Pt and family agreeable. Patient was seen, examined, and chart reviewed. Agree with exam and treatment plan of the Vascular PA. Present on Admission?: Yes History of Present Illness Reason for Consultation: JANIS, need permcath Attending Physician: Clint Martinez History of Present Illness 82 yo m with multiple medical problems, including a fib, CAD s/p CABG x5, DMII, CKD, peripheral neuropathy, ischemic cardiomyopathy, GERD, hyperlipidemia, HTN, CHF, aortic stenosis, admitted with acute on chronic renal failure, seen in consultation today for insertion of permcath for HD. Pt admits fatigue/malaise, poor appetite, WALTERS, and severe edema. Denies GREENE, fever, chest pain, SOB at rest, abd pain, N/V, rest pain, claudication, other complaints. Allergies Allergy/AdvReac Type Severity Reaction Status Date / Time iodine Allergy Severe Unknown Verified 08/26/18 14:01 Penicillins Allergy Severe AMOXIL = Verified 08/26/18 14:01 ANAPHYLACTIC RXN clavulanic acid Allergy Unknown Unknown Verified 08/26/18 14:01 morphine AdvReac Mild VOMITING Verified 08/26/18 14:01 amoxicillin AdvReac Verified 08/26/18 14:01 Home Medications Home Medications Medication Instructions Recorded Confirmed Type atorvastatin 40 mg PO HS 02/01/18 09/21/18 History nitroglycerin [Nitrostat] 0.4 mg SUBLINGUAL DIRECTED PRN 02/01/18 09/21/18 History aspirin 81 mg PO DAILY 06/09/18 09/21/18 History cholecalciferol (vitamin D3) 1,000 unit PO DAILY 06/09/18 09/21/18 History [Vitamin D3] clopidogrel 75 mg PO DAILY 06/09/18 09/21/18 History cyanocobalamin (vitamin B-12) 1,000 mcg PO DAILY 06/09/18 09/21/18 History [Vitamin B-12] famotidine 20 mg PO BID 06/09/18 09/21/18 History pantoprazole 40 mg PO DAILY 06/09/18 09/21/18 History hydrocortisone [Proctosol HC] 1 applic EXT Q8H PRN #15 g 08/05/18 09/21/18 Rx ranolazine 1,000 mg PO BID #60 tab 08/05/18 09/21/18 Rx sennosides-docusate sodium 1 tab PO BID #60 tab 08/05/18 09/21/18 Rx [Senokot-S] lancets 33 gauge #100 ea 08/20/18 09/21/18 Rx furosemide 40 mg PO DAILY 09/21/18 09/21/18 History midodrine 10 mg PO QAM 09/21/18 09/22/18 History midodrine 5 mg PO BID 09/22/18 09/22/18 History Patient History Medical History Chronic combined systolic and diastolic heart failure Ischemic cardiomyopathy Surgical History H/O heart artery stent (Resolved) History of quadruple bypass (Resolved) Family History Other Family history non-contributory Social History Preferred Language: Bengali Communication Ability: Unable Beliefs That Will Affect Care: None marital status: Current Living Situation: Spouse Feels Safe at Home: Yes Smoking Status: Never smoker Second Hand Exposure: No Hx Alcohol Use: No Hx Substance Use: No Review of Systems Review of Systems: All systems reviewed & are unremarkable except as noted in HPI & below (pt poor historian d/t cognitive status as well. ) Physical Exam Constitutional: WD/WN, vitals as above well developed, well nourished, + ill appearing, + obese, + frail appearing, well groomed, cooperative and comfortable; not in distress and not combative Eyes: PERRL, conjunctivae normal, anicteric sclerae EOM intact bilaterally ENMT: external ear and nose normal, oropharynx normal Ears: no hearing impairment Nose: no nasal discharge Neck: trachea midline, no thyromegaly neck nontender Respiratory: able to speak in complete sentences; + abnormal respiratory effort and no cough Auscultation: + diminished lung sounds, + crackles and + rales; no rhonchi and no wheezes Cardiovascular: Rate/Rhythm: + irregularly irregular Heart Sounds: + murmur Vessels: femoral pulses present, brachial pulses present and radial pulses present; no carotid bruit, no femoral bruit, + abnormal peripheral pulses, + posterior tibial pulses abnormal (toe warm and pink, pulses nonpalpable) and + dorsalis pedis pulses abnormal (toes warm and pink, pulses nonpalpable) Extremities: normal capillary refill, + pedal edema and + edema Gastrointestinal (Abdomen): normal bowel sounds, soft, nontender, no h epatosplenomegaly Inspection/Auscultation: abdomen normal to inspection, normal bowel sounds and + abdominal edema Percussion/Palpation: abdomen soft; abdomen nontender, no guarding and abdomen not rigid Musculoskeletal: no cyanosis or clubbing, extremities motor strength 5/5 Head/Neck/Chest: normocephalic, head atraumatic and neck supple Extremities: extremities normal to inspection and strength 5/5 throughout; full ROM of extremities and normal strength Skin: no rashes, warm and dry + abnormal turgor, no rashes, no lesions, no ulcers, no eschar and no mottling Neurologic: moves all extremities and awake; no focal motor deficits and not confused Speech / Cognition: no expressive aphasia and no receptive aphasia Motor/Sensory: no tremor and no sensory deficit Cranial Nerves: EOM intact bilaterally, normal facial strength and tongue midline Psychiatric: Orientation: alert, oriented to person, oriented to place and cooperative Apperance: appropriately dressed, appropriately groomed and appeared stated age Affect: + depressed affect Thought Process: goal directed thought process and linear/logical thought process Cognition: recent memory grossly intact, remote memory grossly intact, attention grossly intact and language grossly intact Estimated Intelligence: average estimated intelligence Results & Data Vital Signs (Past 12 Hours) Vital Signs Temp Pulse Resp BP Pulse Ox 09/28/18 09:30 75 18 98/51 L 95 09/28/18 09:00 76 20 85/47 L 91 09/28/18 08:21 82 16 89/46 L 90 09/28/18 08:20 81 22 69/35 L 98 09/28/18 08:11 67 19 90/58 L 100 09/28/18 08:10 86 20 100 09/28/18 08:00 36.7 C 86 19 99 09/28/18 07:17 85 09/28/18 07:00 83 16 105/61 100 09/28/18 06:00 81 21 104/50 L 100 09/28/18 05:00 77 20 90/42 L 94 09/28/18 04:00 36.6 C 90 21 104/68 99 09/28/18 03:00 93 H 26 H 98/64 L 100 09/28/18 02:00 86 19 111/61 96 09/28/18 01:00 86 22 115/58 L 100 09/28/18 00:00 36.5 C 63 17 92/53 L 98
--- NOTE | 2018-09-28 11:56 | Palliative Care Consultation ---
Date of Consultation September 28, 2018 Assessment & Plan (1) Goals of care, counseling/discussion: -82 year old male patient with PMH chronic combined systolic and diastolic heart failure, severe CAD s/p 5 vessel CABG with RCA stenting, unsuccessful intervention on graft stenosis during heart cath 07/26/18, CKD stage III with baseline creatinine ~1.3, ischemic cardiomyopathy, and others, presented to the hospital a week ago with s/p cardiac arrest and ROSC. Apparently the patient was at home with his when he yelled for her from the bathroom. Patient's called for their son, lives above patient, who arrived within 5 minutes and started rescue breathing. By the time EMS got there, patient was pulseless and they began CPR. Upon arriving to ED, he achieved ROSC and underwent therapeutic hypothermic protocol. Neurology was consulted for possible anoxic encephalopathy. Patient was appropriately weaned from sedatives and ventilator and was successfully extubated. Unfortunately, in the setting of hypotension/hypoperfusion, baseline CKD, and administration of IV contrast, patient's kidney function is worsening each day. He is oliguric and creatinine is now 4.55. Electrolytes have been stable, but dialysis will likely be indicated soon, if not tomorrow. Patient's LFTs are also abnormal. 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 If hypotension continues to be an issue, automotive service cashier recommends adding vasoactive medications. Given patient's multiple comorbidities and age, palliative care is consulted to discuss goals of care. -Met with patient, his Rose Mary, son Ruperto Alegria, daughter Sheeba Loera, [id number], and three other male family members, in room 108. Dr. Dela Cruz gave a detailed medical update including likely dialysis tomorrow, possible need for life vest vs. AICD vs. LVAD (if even a candidate for this). -Patient stated very clearly that he wants anything and everything done to "live as long as I possibly can." We did discuss quality vs. quantity and quality of life. For patient, most important thing is for him to return home. Knowing that he could possibly not return home with the amount of care he will be requiring after hospitalization is discouraging to him, but he still wants to continue full court press. He is hoping that he might improve enough to go home. His family is all supportive and in agreement with patient's wishes. -Planning for temporary dialysis catheter placement today, possible dialysis treatment tomorrow. -Cardiology is following for management. -Palliative care will follow peripherally throughout hospital stay and continue to support medical decision making. (2) Cardiac arrest: (3) Ischemic cardiomyopathy: (4) JANIS (acute kidney injury): Supervising Physician Co-Signing Physician Notes Chart reviewed, patient seen and examined this afternoon. Patient appears comfortable sitting in chair at bedside. Multiple family at bedside including patient's , daughter, son, and [id number] Patient still on dobutamine PE: Patient awake and alert, no acute distress HEENT: Mild hard of hearing, EOMI Respirations: Unlabored, adequate breath sounds bilaterally CV: Regular rate, + edema Abd: NT Neuro: A&O Agree with above note, assessment and plan as per Candace Nunez, FRAME BANDER Will continue to follow and assist patient and family with medical decision making History of Present Illness Reason for Consultation: Goals of care Requesting Physician: Dr. Dela Cruz Attending Physician: Clint Martinez History of Present Illness This 82 year old male patient with PMH chronic combined systolic and diastolic heart failure, severe CAD s/p 5 vessel CABG with RCA stenting, unsuccessful intervention on graft stenosis during heart cath 07/26/18, CKD stage III with baseline creatinine ~1.3, ischemic cardiomyopathy, and others, presented to the hospital a week ago with s/p cardiac arrest and ROSC. Apparently the patient was at home with his when he yelled for her from the bathroom. Patient's called for their son, lives above patient, who arrived within 5 minutes and started rescue breathing. By the time EMS got there, patient was pulseless and they began CPR. Upon arriving to ED, he achieved ROSC and underwent therapeutic hypothermic protocol. Neurology was consulted for possible anoxic encephalopathy. Patient was appropriately weaned from sedatives and ventilator and was successfully extubated. Unfortunately, in the setting of hypotension/hypoperfusion, baseline CKD, and administration of IV contrast, patient's kidney function is worsening each day. He is oliguric and creatinine is now 4.55. Electrolytes have been stable, but dialysis will likely be indicated soon, if not tomorrow. Patient's LFTs are also abnormal. 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 If hypotension continues to be an issue, automotive service cashier recommends adding vasoactive medications. Given patient's multiple comorbidities and age, palliative care is consulted to discuss goals of care. Thank you kindly for this consult. I will follow as needed. Allergies Allergy/AdvReac Type Severity Reaction Status Date / Time iodine Allergy Severe Unknown Verified 08/26/18 14:01 Penicillins Allergy Severe AMOXIL = Verified 08/26/18 14:01 ANAPHYLACTIC RXN clavulanic acid Allergy Unknown Unknown Verified 08/26/18 14:01 morphine AdvReac Mild VOMITING Verified 08/26/18 14:01 amoxicillin AdvReac Verified 08/26/18 14:01 Home Medications Home Medications Medication Instructions Recorded Confirmed Type atorvastatin 40 mg PO HS 02/01/18 09/21/18 History nitroglycerin [Nitrostat] 0.4 mg SUBLINGUAL DIRECTED PRN 02/01/18 09/21/18 History aspirin 81 mg PO DAILY 06/09/18 09/21/18 History cholecalciferol (vitamin D3) 1,000 unit PO DAILY 06/09/18 09/21/18 History [Vitamin D3] clopidogrel 75 mg PO DAILY 06/09/18 09/21/18 History cyanocobalamin (vitamin B-12) 1,000 mcg PO DAILY 06/09/18 09/21/18 History [Vitamin B-12] famotidine 20 mg PO BID 06/09/18 09/21/18 History pantoprazole 40 mg PO DAILY 06/09/18 09/21/18 History hydrocortisone [Proctosol HC] 1 applic EXT Q8H PRN #15 g 08/05/18 09/21/18 Rx ranolazine 1,000 mg PO BID #60 tab 08/05/18 09/21/18 Rx sennosides-docusate sodium 1 tab PO BID #60 tab 08/05/18 09/21/18 Rx [Senokot-S] lancets 33 gauge #100 ea 08/20/18 09/21/18 Rx furosemide 40 mg PO DAILY 09/21/18 09/21/18 History midodrine 10 mg PO QAM 09/21/18 09/22/18 History midodrine 5 mg PO BID 09/22/18 09/22/18 History Patient History Medical History Chronic combined systolic and diastolic heart failure Ischemic cardiomyopathy Surgical History H/O heart artery stent (Resolved) History of quadruple bypass (Resolved) Family History Other Family history non-contributory Social History Preferred Language: [place] Communication Ability: Unable Beliefs That Will Affect Care: None marital status: Current Living Situation: Spouse Feels Safe at Home: Yes Smoking Status: Never smoker Second Hand Exposure: No Hx Alcohol Use: No Hx Substance Use: No Review of Systems Constitutional: + weakness Respiratory: no cough and no dyspnea Cardiovascular: no chest pain Gastrointestinal: no abdominal pain and no nausea Neurologic: no confusion Physical Exam Constitutional: + ill appearing; no acute distress ENMT: external ear and nose normal, oropharynx normal Ears: no hearing impairment Neck: normal visual inspection Respiratory: no respiratory distress nasal cannula Cardiovascular: Rate/Rhythm: regular rate and regular rhythm Extremities: + edema (widespread) Skin: + jaundice and + pallor Neurologic: moves all extremities and awake Psychiatric: Orientation: alert and oriented x 3 Insight: + limited insight Results & Data Vital Signs (Past 12 Hours) Vital Signs Temp Pulse Resp BP Pulse Ox 09/28/18 11:00 78 24 84/51 L 95 09/28/18 10:00 80 23 90/53 L 100 09/28/18 09:30 75 18 98/51 L 95 09/28/18 09:00 76 20 85/47 L 91 09/28/18 08:21 82 16 89/46 L 90 09/28/18 08:20 81 22 69/35 L 98 09/28/18 08:11 67 19 90/58 L 100 09/28/18 08:10 86 20 100 09/28/18 08:00 36.7 C 86 19 99 09/28/18 07:17 85 09/28/18 07:00 83 16 105/61 100 09/28/18 06:00 81 21 104/50 L 100 09/28/18 05:00 77 20 90/42 L 94 09/28/18 04:00 36.6 C 90 21 104/68 99 09/28/18 03:00 93 H 26 H 98/64 L 100 09/28/18 02:00 86 19 111/61 96 09/28/18 01:00 86 22 115/58 L 100 09/28/18 00:00 36.5 C 63 17 92/53 L 98 PG Care Time/CCT Total # of Minutes Spent Total Time Spent with Patient: Total time spent is greater than 50% in coordination of care (as documented) at patient's floor/unit and/or counseling patient: Time Spent Midlevel 70 minutes with >50% of the time spent at bedside with patient and family discussing condition and GOC.
[2018-09-28] MEDS ORDERED: fentaNYL citrate 100 MCG/2 ML VIAL ONE (12:14)
[2018-09-28] MEDS ORDERED: MIDAZOLAM HCL 1 MG/ML 2ML VIAL ONE (12:14)
[2018-09-28] MEDS ORDERED: ONDANSETRON INJ 2 MG/ML 2 ML VIAL ONE (12:45)
--- NOTE | 2018-09-28 13:05 | Cardiology Progress Note ---
Date of Service September 28, 2018 Assessment & Plan (1) Cardiac arrest: 2. Coronary artery disease--5 vessel CABG, RCA stents; cardiac cath 07/26/18 with unsuccessful attempt to intervene on PAV to PDA Y graft stenosis 3. Ischemic cardiomyopathy - EF 30-35% 4. Acute renal failure 5. 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 Aortic stenosis/Mitral regurgitation 7. Anemia 8. Paroxysmal atrial fibrillation 9. Transaminitis Blood pressures stable but borderline. Have been low for months previously requiring florinef, midodrine. SCr, LFTs continue to rise. In the setting of his severe LV dysfunction concern for possible low-output state leading to multi-organ failure. RHC completed today - Riki CO/CI 3.8/1.8 , PA sat 37%. -- Recommend starting inotropic support - started on dobutamine in cardiac catheterization technologist -- add a vasopressor if MAP > 60 -- Continue DAPT with ASA/Plavix -- Additional diuretics per nephrology -- Ranexa discontinued -- Continue statin Subjective Feeling unwell this morning. Endorses some abdominal discomfort. No chest pain. Reports difficulty sleeping overnight. Denies significant shortness of breath. Review of Systems Review of Systems: All systems reviewed & are unremarkable except as noted in HPI & below Physical Exam Physical Exam: General: Comfortable, looks chronically ill HEENT: Sclerae anicteric, mucous membranes moist Lungs: Decreased breath sounds at the bases bilaterally Cardiac: Regular rate, intermittent ectopy, 3/6 systolic ejection murmur heard best at the right upper sternal border Abdomen: Soft, diffuse mild tenderness, positive bowel sounds Extremities: Distal extremities warm 2+ edema to knees Skin: Ecchymosis, superficial ulcer over the anterior aspect of chest Neuro: Nonfocal Psych: Alert Results & Data Vital Signs (Past 12 Hours) Vital Signs Temp Pulse Resp BP Pulse Ox 09/28/18 11:00 78 24 84/51 L 95 09/28/18 10:00 80 23 90/53 L 100 09/28/18 09:30 75 18 98/51 L 95 09/28/18 09:00 76 20 85/47 L 91 09/28/18 08:21 82 16 89/46 L 90 09/28/18 08:20 81 22 69/35 L 98 09/28/18 08:11 67 19 90/58 L 100 09/28/18 08:10 86 20 100 09/28/18 08:00 36.7 C 86 19 99 09/28/18 07:17 85 09/28/18 07:00 83 16 105/61 100 09/28/18 06:00 81 21 104/50 L 100 09/28/18 05:00 77 20 90/42 L 94 09/28/18 04:00 36.6 C 90 21 104/68 99 09/28/18 03:00 93 H 26 H 98/64 L 100 09/28/18 02:00 86 19 111/61 96 09/28/18 01:00 86 22 115/58 L 100
--- NOTE | 2018-09-28 13:16 | Cardiac Catheterization ---
Cardiac Cath Procedure Full Procedure Date September 28, 2018 Pre-Procedure Diagnosis Pre-Procedure Diagnosis: Cardiothoracic Symptom AUC Score AUC Score: 7 Post-Procedure Diagnosis Post-Procedure Diagnosis: Decreased LV Systolic Function Procedure(s) Performed Procedure(s) Performed: Right Heart Cath Phone Circuit Operator Abdullahi Christine MD Pitch Filler(s) Yovany Estimated Blood Loss Estimated Blood Loss: 5 Medication(s) Medication(s): Lidocaine 1% Summary of Findings Indication: Systolic heart failure, acute renal failure Access: Right brachial vein under ultrasound guidance RA 17 RV 45/17 PA 43/19 (30) PAWP--unable to liver wedge catheter to PA PaSat 37% AoSat 90% Riki CO/CI 3.8/1.8 Summary: 1. Reduce cardiac output 2. Elevated right-sided filling pressures 3. Mild pulmonary hypertension Recommendations: Recommend trial of inotropes with continued diuretics per nephrology Hemodynamics Rest Ao:: -- Final Ao: -- LV: -- Recommendations Recommendations: Medical Therapy and/or Counseling Specimens Specimens: None Radiation Exposure (mGy) 237 Contrast (mls) None Fluids (cc crystalloids) Fluids (cc crystalloids): None Drains Drains: None Anesthesia Local Procedural Complication(s) None Disposition ICU ACC Data: Air Carrier Inspector Cardiac Status Clinical evaluation leading to the procedure CAD Presenation: Sx unlikely to be ischemic Anginal Classification: No Symptoms Heart Failure: NYHA Class: CCS IV Cardiogenic Shock within 24 Hours: Yes Cardiac Arrest within 24 Hours: No Imaging Studies Past 6 Months: Yes Stress Studies Past 6 Months: No Diagnostic Physicians Name: Abdullahi Christine MD Closure Device Closure Device: None-Manual Hold Recommendations: Medical Therapy and/or Counseling Intraprocedure Events Significant Disection: No Perforation: No
[2018-09-28] MEDS: SEVELAMER HCL 800 MG TABLET PO SCH ×2 (13:19→16:59)
[2018-09-28] MEDS: DOBUTamine 500MG / 250ML D5W (CATH LAB USE ONLY) ONE ×2 (13:19→13:50)
[2018-09-28] MEDS ORDERED: CLINDAMYCIN 600 MG/54 ML D5W IV ONE (13:22)
[2018-09-28] MEDS ORDERED: DOBUTamine / D5W 500 MG/250 ML BAG IV SCH (13:31)
[2018-09-28] MEDS ORDERED: LIDOCAINE HCL 1% 20 ML VIAL ONE (13:34)
[2018-09-28] MEDS ORDERED: HEPARIN SOD (PORCINE) 5,000 UNITS/ML VIAL ONE (13:34)
[2018-09-28 13:51] LABS: iSTAT Arterial Blood Gas HCO3 21 meg/L (19-24); iSTAT Arterial Blood Gas pCO2 37 mmHg (35-46); iSTAT Arterial Blood Gas pH 7.35 (7.35-7.45); iSTAT Carbon Dioxide 22 mEq/l (24-31)
[2018-09-28] MEDS ORDERED: CLINDAMYCIN 600 MG in DEXTROSE 5% 50 ML IV ONE (14:00)
--- NOTE | 2018-09-28 14:13 | Communication Note ---
Date of Service: September 28, 2018 Pt now on dobutamine drip after R heart catheterization today. Per discussion with Dr Mayo, he does not plan to initiate HD until tomorrow, and only if renal fxn worsens. After discussion with Dr Rich, decision made to postpone permcath insertion until tomorrow. Pt and family agreeable.
[2018-09-28] MEDS ORDERED: BENZONATATE 100 MG CAPSULE PO PRN (14:55)
[2018-09-28] MEDS ORDERED: DOPAMINE / D5W 400 MG/250 ML BAG IV STA (17:15)
[2018-09-28] MEDS ORDERED: DOPamine 400MG / 250ML D5W IV ONE (17:18)
[2018-09-28] MEDS ORDERED: FUROSEMIDE 80 MG in SYRINGE 0 ML IV ONE (17:30)
[2018-09-28] MEDS ORDERED: NOREPINEPHRINE BITARTRATE 1 MG/ML 4 ML VIAL IV ONE (18:06)
[2018-09-28] MEDS ORDERED: EPINEPHrine 4 MG in DEXTROSE 5% BRADYCARDIA IV SCH (18:15)
--- NOTE | 2018-09-28 18:23 | Anesthesiology Progress Note ---
Date of Service September 28, 2018 The patient was intubated in the ICU during a cardiac arrest. We used a # 8.0 ETT. + color change on capnography. The tub was secured at 22 cm. Anesthesia Post Procedure Vital Signs Vital Signs: Temp Pulse Pulse Resp BP BP Pulse Ox 09/28/18 17:14 86 19 81/46 L 93 09/28/18 17:01 82 20 93 09/28/18 17:00 87 18 81/49 L 97 09/28/18 16:01 36.6 C 85 18 100/36 L 09/28/18 16:00 85 09/28/18 15:00 81 20 96/51 L 97 09/28/18 14:46 85 21 117/38 L 96 09/28/18 14:31 84 20 84/44 L 93 09/28/18 14:15 84 21 85/44 L 94 09/28/18 14:00 87 21 88/58 L 89 L 09/28/18 13:46 81 18 92/47 L 09/28/18 13:38 36.9 C 84 20 106/61 09/28/18 13:30 36.5 C 82 21 106/61 09/28/18 13:15 83 19 110/54 L 09/28/18 11:00 78 24 84/51 L 95 09/28/18 10:00 80 23 90/53 L 100 09/28/18 09:30 75 18 98/51 L 95 09/28/18 09:00 76 20 85/47 L 91 09/28/18 08:21 82 16 89/46 L 90 09/28/18 08:20 81 22 69/35 L 98 09/28/18 08:11 67 19 90/58 L 100 09/28/18 08:10 86 20 100 09/28/18 08:00 36.7 C 86 19 99 09/28/18 07:17 85 09/28/18 07:00 83 16 105/61 100 09/28/18 06:00 81 21 104/50 L 100 09/28/18 05:00 77 20 90/42 L 94 09/28/18 04:00 36.6 C 90 21 104/68 99 09/28/18 03:00 93 H 26 H 98/64 L 100 09/28/18 02:00 86 19 111/61 96 09/28/18 01:00 86 22 115/58 L 100 09/28/18 00:00 36.5 C 63 17 92/53 L 98 09/27/18 23:00 77 14 133/69 99 09/27/18 22:00 84 22 119/69 99 09/27/18 21:00 84 28 H 101/64 94 09/27/18 20:00 79 21 111/54 L 97 Pain Intensity Bilateral Generalized: Pain Intensity: 8
--- NOTE | 2018-09-28 18:33 | Procedure Note ---
Procedure Note Date of Service September 28, 2018 Procedure date: Noted above Procedure: Central venous access Pre-procedure indication: Need for vasoactive medication administration Post-procedure Diagnosis: same as above Prior to Procedure: Informed Consent: Emergent consent implied during CODE BLUE Attending Staff: Sonia Dela Cruz DO Resident/APC: Daniel Skin Prep: Chlorhexidine Anesthesia: 4 mL 1% lidocaine without epinephrine The identity of the patient was confirmed and a bedside time out was performed. Description of Procedure: After sterile prep and sterile drape utilizing standard sterile technique the superficial skin of the left subclavian area was anesthetized. The target vessel was identified and entered with an 18-gauge needle. Dark venous blood return was noted. A guidewire was inserted through the needle and into the vessel. The needle was withdrawn and a skin antonio was made. A tissue dilator was advanced via Seldinger technique and removed. A triple lumen catheter was inserted via Seldinger technique and the guidewire removed. All ports mateo and flushed easily. A Biopatch was placed, and the catheter was secured via silk suture. A sterile dressing was then applied. Complications: None Estimated blood loss: Trace Patient tolerated the procedure well. Procedure Date: Noted Above Procedure: Procedural Ultrasound Indication: Central venous access Coding CPT Codes Tubes, Drains, and Vasc Access - Tubes, Drains, and Vasc Access: Insertion Of Non-tunneled Catheter Age 4 Yrs> ([id number])
--- NOTE | 2018-09-28 18:41 | Death Summary ---
Date of Service September 28, 2018 Pronouncement Note Contributing Factors (1) Goals of care, counseling/discussion: (2) Cardiac arrest: (3) Ischemic cardiomyopathy: (4) JANIS (acute kidney injury): Additional Data Attending physician: Clint Martinez Patient ceased to breathe and spontaneous cardiac activity secondary to sudden cardiac secondary to ischemic cardiomyopathy secondary to coronary artery disease. Family is at the bedside and requested cessation of all resuscitative efforts. Time of was 1820. Manner of was natural.
[2018-09-28] MEDS ORDERED: DEXTROSE 5% 100 ML BAG IV ONE (20:59)
[2018-09-28] MEDS ORDERED: SODIUM CHLORIDE 0.9% 10ML FLUSH IV ONE (20:59)
[2018-09-28] MEDS ORDERED: CALCIUM CHLORIDE 10% 10 ML SYR IV ONE (20:59)
[2018-09-28] MEDS ORDERED: MIDAZOLAM HCL 5 MG/ML VIAL IV ONE (20:59)
[2018-09-28] MEDS ORDERED: ATROPINE SULFATE 0.1 MG/ML 10ML SYR IV ONE (20:59)
[2018-09-28] MEDS ORDERED: AMIODARONE HCL INJ 50 MG/ML 3 ML VIAL IV ONE (20:59)
[2018-09-29] MEDS ORDERED: CLINDAMYCIN 600 MG/54 ML BAG IV SCH (06:00)
--- NOTE | 2018-09-29 10:53 | Coding Query ---
CODING QUERY To promote full compliance with coding requirements relating to patient care, provider participation is requested in all cases of trust administrator uncertainty. Please assist us with the question(s) below: Coding Question(s): Please specify below, in your clinical opinion, regarding the Bronchioalveolar Lavage procedure done on 09/22/18. ( ) BAL was Diagnostic and Therapeutic ( X ) BAL was Diagnostic only Physician's Response(s): Thank you Diana Maloney Principal Diagnosis: "that condition established after study, to be chiefly responsible for occasioning the admission of the patient to the hospital for care." Co-Existing Principal Diagnosis: "when two or more diagnoses equally meet the criteria for principal diagnosis as determined by the circumstances of admission, diagnostic work up, and/or therapy provided, and the Alphabetic Index, Tabular List, or another coding guideline does not provide sequencing direction, any one of the diagnoses may be sequenced first." "When the physician has documented what appears to be a current diagnosis in the body of the record, but has not included the diagnosis in the final diagnostic statement, the physician should be asked whether the diagnosis should be added." (Source Coding [facility] 2 QTR90. p3-4) JOLYNN
[2018-10-01 05:14] LABS: CK Total 57 U/L (44-196); CK-MB 0 % (<5); CK-MM 100 % (95-100)
== END 2018-09-28 21:00 | disposition expired | DRG 286 ==
LOC: ED 21:45 → SUATTDRO 23:37 → 1E 23:37 → 2E 09-24 12:17 → 1E 09-25 15:12
PROC: CLB.CRH (2018-09-28 12:00)